=== PATIENT | female | born 1940 | race Caucasian/White ===

== ENCOUNTER 2020-04-24 15:46 | Emergency (ER) | payer MEDICARE, MEDICAID ==
--- NOTE | 2020-04-24 16:54 | EDM.PDOC ---
ED HPI GENERAL MEDICAL PROBLEM - General Chief Complaint: Head Injury Stated Complaint: FALL/HEAD INJURY Time Seen by Provider: 04/24/20 16:15 Source of Information: Reports: Patient, RN Notes Reviewed History Limitations: Reports: No Limitations - History of Present Illness INITIAL COMMENTS - FREE TEXT/NARRATIVE: Patient is a 79-year-old female who presents to the ED for evaluation of her head injury. She notes that she was leaving [employer] earlier today, and she fell as she was going off the curb. She ended up hitting the back of her head on the curb. She has had any loss of consciousness, nor did she blacked out. She is not complaining of pain anywhere else. She is not having any active bleeding from this area. She does not take anticoagulants. She denies any other sick-like symptoms, fever/chills, cough/shortness of breath, nausea/vomiting/diarrhea. Patient is not having any blurred vision or double vision, she is not having any headache. Posterior Head Pain Score (Numeric/FACES): 5 - Related Data Allergies Allergy/AdvReac Type Severity Reaction Status Date / Time adhesive Allergy Rash Verified 04/24/20 15:57 Iodine and Iodide Containing Allergy Itching Verified 04/24/20 15:57 Produc Penicillins Allergy Diarrhea Verified 04/24/20 15:57 Home Meds: Home Meds Levothyroxine [Synthroid] 88 mcg PO DAILY 04/24/20 [History] hydroCHLOROthiazide [Hydrochlorothiazide] 12.5 mg PO DAILY 04/24/20 [History] Past Medical History Cardiovascular History: Reports: Hypertension Musculoskeletal History: Reports: Other (See Below) Other Musculoskeletal History: knee pain Other Endocrine/Metabolic History: thyroid issues - Infectious Disease History Infectious Disease History: Reports: None - Past Surgical History HEENT Surgical History: Reports: Tonsillectomy GI Surgical History: Reports: Appendectomy, Cholecystectomy, Hernia, Abdominal Social & Family History - Tobacco Use Smoking Status *Q: Never Smoker Second Hand Smoke Exposure: No - Caffeine Use Caffeine Use: Reports: Coffee - Recreational Drug Use Recreational Drug Use: No ED ROS GENERAL - Review of Systems Review Of Systems: Comprehensive ROS is negative, except as noted in HPI. ED EXAM, HEAD INJURY - Physical Exam Exam: See Below Exam Limited By: Uncooperative General Appearance: Alert, WD/WN, No Apparent Distress Head: Normocephalic, Scalp Ecchymosis (golf ball size scalp hematoma to crown of head) Nexus Criteria: No: Posterior, Midline Cervical Tenderness, Evidence of Intoxication, Altered Level of Consciousness, Focal Neurological Deficit, Painful Distraction Injuries Eyes: Bilateral Eye: EOMI, Normal Inspection, PERRL Throat/Mouth: Normal Inspection, Normal Lips, Normal Teeth, Normal Gums, Normal Oropharynx, Normal Voice, No Airway Compromise Neck: Non-Tender, Full Range of Motion, Normal Alignment, Normal Inspection Respiratory: No Respiratory Distress, Lungs Clear, Normal Breath Sounds, No Accessory Muscle Use, Chest Non-Tender Cardiovascular: Normal Peripheral Pulses, Regular Rate, Rhythm, No Murmur GI/Abdominal Exam: Normal Bowel Sounds, Soft, Non-Tender, No Distention, No Mass Extremities: Normal Inspection, Normal Capillary Refill Neurologic: No Motor/Sensory Deficits, Normal Mood/Affect Skin: Normal Color, Warm/Dry - Sue Coma Score Best Eye Response (Sue): (4) Open Spontaneously Best Verbal Response (Lorraine): (5) Oriented Best Motor Response (Lorraine): (6) Obeys Commands Course - Vital Signs Last Recorded V/S: Last Vital Signs Temp 97.9 F 04/24/20 15:54 Pulse 100 04/24/20 15:54 Resp 16 04/24/20 15:54 BP 145/93 H 04/24/20 15:54 Pulse Ox 97 04/24/20 15:54 - Orders/Labs/Meds Orders: Active Orders 24 hr Category Date Time Status Head wo Cont [CT] Stat Exams 04/24/20 16:16 Ordered - Re-Assessments/Exams Free Text/Narrative Re-Assessment/Exam: 04/24/20 17:[address] demonstrates no acute intracranial processes. No bleeds, no fractures are appreciated. She will be discharged home with general recommendations. Departure - Departure Time of Disposition: 17:16 Disposition: Home, Self-Care 01 Condition: Good Clinical Impression: Head injury Qualifiers: Encounter type: initial encounter Qualified Code(s): S09.90XA - Unspecified injury of head, initial encounter - Discharge Information *PRESCRIPTION DRUG MONITORING PROGRAM REVIEWED*: No *COPY OF PRESCRIPTION DRUG MONITORING REPORT IN PATIENT ANGUS: No Instructions: Head Injury, Adult, [id number] Referrals: Liu Mars MD [Primary Care Provider] - Forms: ED Department Discharge Additional Instructions: You were evaluated in the ER today for your head injury. A head CT was obtained, and there is no acute fracture or any sign of any bleeds. Please monitor your symptoms at home, if he should have increased headache, any sort of neurological deficits like unilateral weakness, troubles with your speech, or any gait abnormalities, those to be cause for concern to return to the ER for immediate evaluation. You may have a slight headache for the next couple days, you may take Tylenol or ibuprofen as needed for this every 6 hours. Recommend you follow-up with your primary care provider, sometime this week for reevaluation and to make sure everything is getting better as expected. Please return to the ER at any time if symptoms change or worsen. Sepsis Event Note (ED) - Evaluation Sepsis Screening Result: No Definite Risk - Focused Exam Vital Signs: Vital Signs Temp Pulse Resp BP Pulse Ox 04/24/20 15:54 97.9 F 100 16 145/93 H 97 - My Orders Last 24 Hours: My Active Orders 04/24/20 16:16 Head wo Cont [CT] Stat - Assessment/Plan Last 24 Hours: My Active Orders 04/24/20 16:16 Head wo Cont [CT] Stat
--- NOTE | 2020-04-24 17:53 | CT ---
Head CT Technique: Multiple axial sections through the brain were obtained. Intravenous contrast not utilized. Comparison: No prior intracranial imaging is available. Findings: Ventricles along with basal cisterns and sulci over the convexities are within normal limits for the patient's age. Minimal scattered areas of diminished density are noted within the periventricular white matter compatible with small vessel ischemic demyelination change. No other abnormal parenchymal densities are seen. No evidence of intracranial hemorrhage. No midline shift or mass-effect is seen. Minimal hematoma is noted within the posterior scalp. Visualized paranasal sinuses and mastoid sinuses are clear. No acute calvarial finding is seen. Impression: 1. Mild senescent change as noted above. Minimal scalp hematoma. 2. No acute intracranial abnormality is seen. Diagnostic code #2 This report was dictated in MDT I agree with preliminary report from [facility], finalized on 04/24/20, 5:59 PM Central Daylight Time
== END 2020-04-24 17:30 | disposition home or self-care (01) ==
LOC: JD.ED 15:46
DX: S00.03XA Contusion of scalp, initial encounter (principal); I10 Essential (primary) hypertension; Z91.048 Other nonmedicinal substance allergy status; Z88.0 Allergy status to penicillin; Z79.899 Other long term (current) drug therapy; W10.1XXA Fall (on)(from) sidewalk curb, initial encounter
CPT/HCPCS: 70450; 70450-26; 99282; 99283-25

== ENCOUNTER 2020-05-06 00:32 | Emergency (ER) | payer MEDICARE, MEDICAID ==
[2020-05-06] MEDS ORDERED: Acetaminophen/oxyCODONE 325-5 MG Tab PO ONE (01:42)
[2020-05-06] MEDS ORDERED: Ondansetron 4 MG Tab.DIS PO ONE (01:42)
--- NOTE | 2020-05-06 01:42 | EDM.PDOC ---
ED HPI GENERAL MEDICAL PROBLEM - General Chief Complaint: Neck Problem Stated Complaint: NECK AND SHOULDER PAIN Time Seen by Provider: 05/06/20 01:39 Source of Information: Reports: Patient History Limitations: Reports: No Limitations - History of Present Illness INITIAL COMMENTS - FREE TEXT/NARRATIVE: 79-year-old female presents to the ED with complaints of severe left shoulder pain and neck pain. She reports she has had CT of her cervical spine and head recently. Known to have rotator cuff disease in both shoulders. Recently worse on the left side. CT of the neck done on March 26 of this year reveals diffuse degenerative change but no obvious neural foraminal entrapment. She rates pains does start in the back of her lower neck and radiates across her posterior s houlder in the distribution of supraspinatus tendon and into her left upper arm which is a constant ache. Having difficulties sleeping cannot lay on the left side. Pain radiates down to her posterior left elbow over the olecranon. Patient is been taking Tylenol for pain relief with no relief. Onset: Other (Pain has been gradually getting worse over the last month. So bad tonight she cannot sleep.) Duration: Week(s):, Chronic, Getting Worse Location: Reports: Neck (Left neck left shoulder), Upper Extremity, Left Quality: Reports: Ache, Throbbing Severity: Moderate Improves with: Reports: Rest Worsens with: Reports: Movement (Any movement i.e. forward flexion or abduction of the left shoulder makes the pain much worse.) Context: Reports: Other (Spontaneous occurrence). Denies: Activity, Exercise, Lifting, Sick Contact, Trauma Associated Symptoms: Reports: Malaise. Denies: Confusion, Chest Pain, Cough, cough w sputum, Diaphoresis, Fever/Chills, Headaches, Loss of Appetite (Not sleeping that well.), Nausea/Vomiting, Rash, Seizure, Shortness of Breath, Syncope, Weakness Treatments SCAN COORDINATOR: Reports: Acetaminophen Left Neck Pain Score (Numeric/FACES): 8 - Related Data Allergies Allergy/AdvReac Type Severity Reaction Status Date / Time adhesive Allergy Rash Verified 05/06/20 01:27 Iodine and Iodide Containing Allergy Itching Verified 05/06/20 01:27 Produc Penicillins Allergy Diarrhea Verified 05/06/20 01:27 Home Meds: Home Meds Levothyroxine [Synthroid] 88 mcg PO DAILY 04/24/20 [History] hydroCHLOROthiazide [Hydrochlorothiazide] 12.5 mg PO DAILY 04/24/20 [History] Meloxicam 7.5 mg PO DAILY #14 tablet 05/06/20 [Rx] oxyCODONE HCl/Acetaminophen [Percocet 5-325 mg Tablet] 1 each PO Q6H PRN #20 tablet 05/06/20 [Rx] Past Medical History Cardiovascular History: Reports: Hypertension Musculoskeletal History: Reports: Back Pain, Chronic, Other (See Below) Other Musculoskeletal History: knee pain Endocrine/Metabolic History: Reports: Hypothyroidism Other Endocrine/Metabolic History: thyroid issues - Infectious Disease History Infectious Disease History: Reports: None - Past Surgical History HEENT Surgical History: Reports: Tonsillectomy GI Surgical History: Reports: Appendectomy, Cholecystectomy, Hernia, Abdominal Social & Family History - Tobacco Use Smoking Status *Q: Never Smoker Second Hand Smoke Exposure: No - Caffeine Use Caffeine Use: Reports: None - Recreational Drug Use Recreational Drug Use: No - Living Situation & Occupation Living situation: Reports: Occupation: Retired ED ROS GENERAL - Review of Systems Review Of Systems: See Below Constitutional: Reports: Malaise, Fatigue (From not sleeping.). Denies: Fever, Chills HEENT: Reports: Glasses Respiratory: Reports: No Symptoms. Denies: Shortness of Breath, Wheezing, Pleuritic Chest Pain Cardiovascular: Reports: Blood Pressure Problem. Denies: Claudication (On hydrochlorothiazide daily.), Dyspnea on Exertion, Edema, Lightheadedness, Orthopnea Endocrine: Reports: Fatigue GI/Abdominal: Reports: Decreased Appetite Musculoskeletal: Reports: Neck Pain, Shoulder Pain, Arm Pain (Left shoulder pain). Denies: Back Pain ( arm pain referred from the shoulder in the distribution of the posterior arm to the elbow over the olecranon process.), Hand Pain, Leg Pain, Foot Pain Skin: Reports: No Symptoms Neurological: Reports: Weakness. Denies: Numbness, Paresthesia, Pre-Existing Deficit, Seizure, Syncope, Tingling, Trouble Speaking, Difficulty Walking (Left shoulder) Psychiatric: Reports: No Symptoms Hematologic/Lymphatic: Reports: No Symptoms Immunologic: Reports: No Symptoms ED EXAM, UPPER BACK/NECK PAIN - Physical Exam Exam: See Below Exam Limited By: No Limitations General Appearance: Alert, WD/WN, No Apparent Distress, Other (Temperature is 36.6. Heart rate 100 and sinus respiratory rate is 20 with O2 sats of 97% room air BP 1 3676.) Eye Exam: Bilateral Eye: Normal Inspection, PERRL Throat/Mouth Exam: Normal Inspection, Normal Lips, Normal Oropharynx Head Exam: Atraumatic, Normocephalic Neck Exam: Normal Alignment, Normal Inspection, Limited Range of Motion, Paraspinous Muscle Tender, Tender Lateral (Left side of the neck.), Other ( Side of the neck. Axial traction on the top of her head does cause some radiculopathy into the left upper shoulder in the distribution of the supraspinatus tendon.). No: Full Range of Motion, Abnormal Alignment, Muscle Spasm Nexus Criteria: Posterior, Midline Cervical Tenderness. No: Evidence of Intoxication, Altered Level of Consciousness, Focal Neurological Deficit, Painful Distraction Injuries Cardiovascular/Respiratory: Regular Rate, Rhythm, Normal Peripheral Pulses, No JVD, Normal Breath Sounds GI/Abdominal: Normal Bowel Sounds, Soft, Non-Tender, No Organomegaly, Pelvis Stable Back Exam: Normal Inspection, Full Range of Motion. No: CVA Tenderness (L), CVA Tenderness (R) Extremities: Other (Very limited ability to abduct the left shoulder more than 60 degrees. Pain in the lateral posterior shoulder. Painful forward flexion with inability to get to 90 degrees. She can get to about 70 degrees. Good pulses to the wrist. Reflexes a brachiocephalic and biceps are intact. There is no evidence of muscle wasting in the left upper extremity. Mild pain over the coracoid process. Mild pain over the long head of the biceps tendon insertion site. With the elbow at 45 degrees away from the body she could barely tolerate supraspinatus stress test.) DTR: 2+: Bicep (R), Bicep (L) Psychiatric: Normal Affect, Normal Mood Skin Exam: Normal Color, Warm/Dry Course - Vital Signs Last Recorded V/S: Last Vital Signs Temp 36.6 C 05/06/20 01:22 Pulse 100 05/06/20 01:22 Resp 20 05/06/20 01:22 BP 136/76 05/06/20 01:22 Pulse Ox 97 05/06/20 01:22 - Orders/Labs/Meds Meds: Medications Discontinued Medications Generic Name Dose Route Start Last Admin Trade Name [place] PRN Reason Stop Dose Admin Ondansetron HCl 4 mg 05/06/20 01:42 05/06/20 01:54 Zofran Odt PO 05/06/20 01:43 4 mg ONETIME ONE Administration Oxycodone/Acetaminophen 1 tab 05/06/20 01:42 05/06/20 01:54 Percocet 325-5 Mg PO 05/06/20 01:43 1 tab ONETIME ONE Administration - Radiology Interpretation Free Text/Narrative:: 79-year-old female presents to the ED in the wee hours of the morning due to pain left shoulder and neck. Unable to sleep due to the pain. Gradually getting worse over period of 6 weeks or more. She has had CT scan of her cervical spine which I did review in the ED and it reveals a degenerative changes at multiple levels in the cervical spine but no neuroforaminal and control treatment. Therefore most of her pain appears to be coming from rotator cuff disease in the left shoulder primarily supraspinatus bursitis. There is a component of biceps tendinitis as well. I am going to suggest he follow-up with Dr. Potter at the clinic to have potential left shoulder injection with steroid. - Re-Assessments/Exams Free Text/Narrative Re-Assessment/Exam: 05/06/20 02:16 I have looked at her CT scan of her cervical spine that was done on March 26. It reveals degenerative disc disease at 3 at C3-C4 level and C5- C6 level but there is no evidence of any neural foraminal stenosis. There is mild degenerative arthritic change at the atlantoaxial joint as well. Therefore most of her pain appears to be coming from the left shoulder due to rotator cu ff disease. I am going to have her follow-up with Dr. Potter over at [facility] to see about injecting her left shoulder with steroids to try and reduce the inflammation due to her age of 79 she is not a good surgical candidate. I would suggest injecting the shoulder prior to further imaging with MRI. Going to send her home with Percocet tabs 5 325 mg to be used 1 every 6 hours as needed for pain relief. Also going to trial her on a dose of meloxicam 7.5 mg once daily for 2 weeks and she will follow-up with her provider as to whether or not this provided any relief of pain in her neck due to arthritic change. We will give her Zofran 4 mg sublingual and 1 Percocet 5 325 mg tablet now for pain relief. 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 Instructions: Radicular Pain Referrals: Liu Mars MD [Primary Care Provider] - Forms: ED Department Discharge Additional Instructions: Evaluation in the emergency room tonight in regards to significant left shoulder pain that is not allowing you to sleep. Associated pain throughout the neck is appreciated on examination with some degree of shooting pain into the left shoulder on axial compression of the head. This suggest there is some nerve root inflammation in the neck that is contributing to left shoulder pain. However pain rating down the arm to the elbow appears to be primarily coming from rotator cuff disease in the left shoulder. I did review CT scan of your neck done March 26 which revealed degenerative arthritic change at multiple levels but no sign of nerve root compression. Therefore most of the pain in the left arm is coming from the left shoulder. Suggest arranging a follow-up appoint with Dr. Potter orthopedic surgeon at [facility] to arrange for steroid injection into your left shoulder to alleviate some of the pain and inflammation. In the ED you did receive a pain pill Percocet 5/325 mg with Zofran 4 mg and you tolerated this well. This will take a good hour to start to work and relieve pain. I have written a prescription for the same medication to be taken 1 tablet every 6 hours as needed for severe pain primarily at bedtime to help with sleep. Also suggested starting a anti-inflammatory medication called meloxicam 7.5 mg once daily every morning with your breakfast meal. This is a trial medication for 2 weeks to see if it alleviates some of the inflammation in your neck and left shoulder. Suggest follow-up with your personal care provider in 2 weeks time for review of pain neck and left shoulder. Of note pain pills like to slow the bowel down and cause constipation. If this is an issue for you suggest purchasing a MiraLAX powder which is [id number] and taking 1 scoop or 17 g once daily to prevent constipation from occurring. Sepsis Event Note (ED) - Evaluation Sepsis Screening Result: No Definite Risk
== END 2020-05-06 02:52 | disposition home or self-care (01) ==
LOC: JD.ED 00:32
DX: M47.812 Spondylosis without myelopathy or radiculopathy, cervical region (principal); M12.812 Other specific arthropathies, not elsewhere classified, left shoulder; I10 Essential (primary) hypertension; E03.9 Hypothyroidism, unspecified; Z79.899 Other long term (current) drug therapy; Z88.0 Allergy status to penicillin; Z91.048 Other nonmedicinal substance allergy status
CPT/HCPCS: 99283; A9270

== ENCOUNTER 2020-07-27 19:17 | Inpatient (IN) | payer MEDICARE, MEDICAID ==
--- NOTE | 2020-07-27 19:57 | EDM.PDOC ---
ED HPI GENERAL MEDICAL PROBLEM - General Chief Complaint: Respiratory Problem Stated Complaint: SOB, FATIGUED Time Seen by Provider: 07/27/20 19:27 Source of Information: Reports: Patient History Limitations: Reports: No Limitations - History of Present Illness INITIAL COMMENTS - FREE TEXT/NARRATIVE: Mrs. Shabazz is a very pleasant 80-year-old woman who now presents to the ED sta ting that she developed generalized body aches 2 days ago,, 07/25/2020, then developed dyspnea coughing, yesterday. She is that her cough is generally nonproductive, occasionally productive of whitish sputum. She has not had a fever. She has not taken any [id number] or home remedies to address her symptoms. The patient states that her is currently hospitalized at this facility, with COVID-19. He was apparently admitted on 07/23/2020. The patient states that she has not been tested for COVID-19. Here in the ED, the patient's initial BP is found to be elevated at 160/73, with mild tachypnea of 28 rpm, afebrile, saturating 81% on room air, up to 96% on 2 L of oxygen per nasal cannula. Prior to 2 days ago, the patient denies having a recent fever, chills, sore throat, ear pain, nasal or sinus congestion, cough, dyspnea, chest pain, palpitations, nausea, vomiting, constipation, diarrhea, abdominal pain, urinary symptoms, recent weight gain or weight loss, recent bloody bowel movements or black bowel movements, recent joint aches, headaches, or rashes. The patient's PCP is Dr. Liu Mars. She already received an influenza vaccine this season. - Related Data Allergies Allergy/AdvReac Type Severity Reaction Status Date / Time adhesive Allergy Rash Verified 07/27/20 19:35 Iodine and Iodide Containing Allergy Itching Verified 07/27/20 19:35 Produc Penicillins Allergy Diarrhea Verified 07/27/20 19:35 Home Meds: Home Meds Levothyroxine [Synthroid] 88 mcg PO DAILY 04/24/20 [History] hydroCHLOROthiazide [Hydrochlorothiazide] 12.5 mg PO DAILY 04/24/20 [History] Past Medical History Cardiovascular History: Reports: Hypertension Genitourinary History: Reports: Urinary Incontinence (stress incontinence) Musculoskeletal History: Reports: Osteoarthritis Endocrine/Metabolic History: Reports: Hypothyroidism, Obesity/BMI 30+ - Past Surgical History HEENT Surgical History: Reports: Cataract Surgery (bilateral), Tonsillectomy GI Surgical History: Reports: Appendectomy, Cholecystectomy (1965), Hernia, Abdominal (periumbilical) Social & Family History - Tobacco Use Tobacco Use Status *Q: Never Tobacco User - Caffeine Use Caffeine Use: Reports: Tea - Alcohol Use Alcohol Use History: No - Recreational Drug Use Recreational Drug Use: No - Living Situation & Occupation Living situation: Reports: , with Spouse Occupation: Retired ED ROS GENERAL - Review of Systems Review Of Systems: Comprehensive ROS is negative, except as noted in HPI. ED EXAM, GENERAL - Physical Exam Exam: See Below Exam Limited By: No Limitations General Appearance: Alert, WD/WN, No Apparent Distress Eye Exam: Bilateral Eye: EOMI, Normal Inspection Ears: Normal External Exam, Hearing Grossly Normal Nose: Normal Inspection Throat/Mouth: Normal Inspection, Normal Lips, Normal Voice, No Airway Compromise Head: Atraumatic, Normocephalic Neck: Normal Inspection, Full Range of Motion Respiratory/Chest: No Respiratory Distress (some conversational dyspnea), Lungs Clear, Normal Breath Sounds, No Accessory Muscle Use. No: Decreased Breath Sounds, Crackles, Rhonchi, Wheezing, Stridor, Prolonged Expiration Cardiovascular: Normal Peripheral Pulses, Regular Rate, Rhythm, No Gallop, No JVD, No Murmur, No Rub Peripheral Pulses: 3+: Radial (L), Radial (R) GI/Abdominal: Normal Bowel Sounds, Soft, Non-Tender, No Organomegaly, No Distention, No Abnormal Bruit, No Mass Back Exam: Normal Inspection, Full Range of Motion, NT Extremities: Normal Inspection, Normal Range of Motion, No Pedal Edema, Normal Capillary Refill Neurological: Alert, Oriented, Normal Cognition, No Motor/Sensory Deficits Psychiatric: Normal Affect Skin Exam: Warm, Dry, Intact, Normal Color, No Rash #1 Interpretation EKG Date: 07/27/20 Time: 19:38 Rhythm: NSR Rate (Beats/Min): 89 [place]: Normal P-Wave: Present QRS: Normal ST-T: Normal QT: Normal Comparison: NA - No Prior EKG Course - Vital Signs Last Recorded V/S: Last Vital Signs Temp 37.4 C 07/27/20 19:28 Pulse 91 07/27/20 19:45 Resp 26 H 07/27/20 19:45 BP 154/77 H 07/27/20 19:45 Pulse Ox 90 L 07/27/20 20:07 - Orders/Labs/Meds Orders: Active Orders 24 hr Category Date Time Status EKG Documentation Completion [RC] STAT Care 07/27/20 19:49 Active Ang Chest [CT] Stat Exams 07/27/20 20:35 Taken Chest 2V [CR] Stat Exams 07/27/20 19:49 Taken CULTURE BLOOD [BC] Stat Lab 07/27/20 20:39 Received CULTURE BLOOD [BC] Stat Lab 07/27/20 20:49 Received Sodium Chloride 0.9% [Normal Saline] 1,000 ml Med 07/27/20 20:45 Active IV ASDIRECTED Sodium Chloride 0.9% [Normal Saline] 100 ml Med 07/27/20 21:00 Active IV ASDIRECTED Sodium Chloride 0.9% [Saline Flush] Med 07/27/20 21:00 Active 10 ml FLUSH ONARRIVE dexAMETHasone [Decadron] Med 07/27/20 22:02 Stat 6 mg IVPUSH ONETIME STA Blood Culture x2 Reflex Set [OM.PC] Stat Oth 07/27/20 19:49 Ordered Isolation [COMM] Routine Oth 07/27/20 19:52 Ordered Medication Orders Sodium Chloride (Normal Saline) 1,000 mls @ 100 mls/hr IV ASDIRECTED NAILA Last Admin: 07/27/20 20:50 Dose: 100 mls/hr Documented by: [email or web address] Sodium Chloride (Normal Saline) 100 mls @ 60 mls/min IV ASDIRECTED NAILA Last Admin: 07/27/20 21:43 Dose: 60 mls/min Documented by: YOKASTA Sodium Chloride (Saline Flush) 10 ml FLUSH ONARRIVE NAILA Last Admin: 07/27/20 21:43 Dose: 10 ml Documented by: YOKASTA Labs: Laboratory Tests 07/27/20 07/27/20 07/27/20 Range/Units 19:30 19:30 19:30 WBC 9.32 (3.98-10.04) K/mm3 RBC 4.74 (3.98-5.22) M/mm3 Hgb 14.0 (11.2-15.7) gm/dl Hct 42.3 (34.1-44.9) % MCV 89.2 (79.4-94.8) fl MCH 29.5 (25.6-32.2) pg MCHC 33.1 (32.2-35.5) g/dl RDW Std Deviation 43.8 (36.4-46.3) fL Plt Count 242 (182-369) K/mm3 MPV 10.6 (9.4-12.3) fl Neutrophils % (Manual) 82 H (40-60) % Band Neutrophils % 2 (0-10) % Lymphocytes % (Manual) 8 L (20-40) % Atypical Lymphs % 0 % Monocytes % (Manual) 8 (2-10) % Eosinophils % (Manual) 0 L (0.7-5.8) % Basophils % (Manual) 0 L (0.1-1.2) Platelet Estimate Adequate RBC Morph Comment Normal D-Dimer, Quantitative 2.59 H (0.19-0.50) mg/L Puncture Site ABG pH (7.35-7.45) ABG pCO2 (35.0-45.0) mmHg ABG pO2 (80.0-100.0) mmHg ABG HCO3 (22.0-26.0) meq/L ABG O2 Saturation (96.0-97.0) % ABG Base Excess (-2-2.0) Wing Test A-a Gradient mmHg O2 Delivery Device Oxygen Flow Rate FiO2 (21.00-100.00) % Sodium 133 L (136-145) mEq/L Potassium 3.3 L (3.5-5.1) mEq/L Chloride 97 L (98-107) mEq/L Carbon Dioxide 25 (21-32) mEq/L Anion Gap 14.3 (5-15) BUN 13 (7-18) mg/dL Creatinine 0.9 (0.55-1.02) mg/dL Est Cr Clr Drug Dosing 43.77 mL/min Estimated GFR (MDRD) > 60 (>60) mL/min BUN/Creatinine Ratio 14.4 (14-18) Glucose 88 (83-115) mg/dL Lactic Acid (0.4-2.0) mmol/L Calcium 8.7 (8.5-10.1) mg/dL Magnesium (1.8-2.4) mg/dl Total Bilirubin 0.7 (0.2-1.0) mg/dL AST 128 H (15-37) U/L ALT 87 H (14-59) U/L Alkaline Phosphatase 60 (46-116) U/L Troponin I 0.025 (0.00-0.056) ng/mL NT-Pro-B Natriuret Pep (0-450) pg/mL Total Protein 7.5 (6.4-8.2) g/dl Albumin 3.1 L (3.4-5.0) g/dl Globulin 4.4 gm/dL Albumin/Globulin Ratio 0.7 L (1-2) Influenza Type A RNA (NEGATIVE) Influenza Type B RNA (NEGATIVE) SARS-CoV-2 RNA (HUMAIRA) (NEGATIVE) 07/27/20 07/27/20 07/27/20 Range/Units 19:30 19:30 19:30 WBC (3.98-10.04) K/mm3 RBC (3.98-5.22) M/mm3 Hgb (11.2-15.7) gm/dl Hct (34.1-44.9) % MCV (79.4-94.8) fl MCH (25.6-32.2) pg MCHC (32.2-35.5) g/dl RDW Std Deviation (36.4-46.3) fL Plt Count (182-369) K/mm3 MPV (9.4-12.3) fl Neutrophils % (Manual) (40-60) % Band Neutrophils % (0-10) % Lymphocytes % (Manual) (20-40) % Atypical Lymphs % % Monocytes % (Manual) (2-10) % Eosinophils % (Manual) (0.7-5.8) % Basophils % (Manual) (0.1-1.2) Platelet Estimate RBC Morph Comment D-Dimer, Quantitative (0.19-0.50) mg/L Puncture Site ABG pH (7.35-7.45) ABG pCO2 (35.0-45.0) mmHg ABG pO2 (80.0-100.0) mmHg ABG HCO3 (22.0-26.0) meq/L ABG O2 Saturation (96.0-97.0) % ABG Base Excess (-2-2.0) Wing Test A-a Gradient mmHg O2 Delivery Device Oxygen Flow Rate FiO2 (21.00-100.00) % Sodium (136-145) mEq/L Potassium (3.5-5.1) mEq/L Chloride (98-107) mEq/L Carbon Dioxide (21-32) mEq/L Anion Gap (5-15) BUN (7-18) mg/dL Creatinine (0.55-1.02) mg/dL Est Cr Clr Drug Dosing mL/min Estimated GFR (MDRD) (>60) mL/min BUN/Creatinine Ratio (14-18) Glucose (83-115) mg/dL Lactic Acid 2.0 (0.4-2.0) mmol/L Calcium (8.5-10.1) mg/dL Magnesium 2.0 (1.8-2.4) mg/dl Total Bilirubin (0.2-1.0) mg/dL AST (15-37) U/L ALT (14-59) U/L Alkaline Phosphatase (46-116) U/L Troponin I (0.00-0.056) ng/mL NT-Pro-B Natriuret Pep 376 (0-450) pg/mL Total Protein (6.4-8.2) g/dl Albumin (3.4-5.0) g/dl Globulin gm/dL Albumin/Globulin Ratio (1-2) Influenza Type A RNA (NEGATIVE) Influenza Type B RNA (NEGATIVE) SARS-CoV-2 RNA (HUMAIRA) (NEGATIVE) 07/27/20 07/27/20 Range/Units 19:40 20:09 WBC (3.98-10.04) K/mm3 RBC (3.98-5.22) M/mm3 Hgb (11.2-15.7) gm/dl Hct (34.1-44.9) % MCV (79.4-94.8) fl MCH (25.6-32.2) pg MCHC (32.2-35.5) g/dl RDW Std Deviation (36.4-46.3) fL Plt Count (182-369) K/mm3 MPV (9.4-12.3) fl Neutrophils % (Manual) (40-60) % Band Neutrophils % (0-10) % Lymphocytes % (Manual) (20-40) % Atypical Lymphs % % Monocytes % (Manual) (2-10) % Eosinophils % (Manual) (0.7-5.8) % Basophils % (Manual) (0.1-1.2) Platelet Estimate RBC Morph Comment D-Dimer, Quantitative (0.19-0.50) mg/L Puncture Site Lt radial ABG pH 7.42 (7.35-7.45) ABG pCO2 37.6 (35.0-45.0) mmHg ABG pO2 55.0 L (80.0-100.0) mmHg ABG HCO3 23.9 (22.0-26.0) meq/L ABG O2 Saturation 88.4 L (96.0-97.0) % ABG Base Excess 0.1 (-2-2.0) Wing Test Positive A-a Gradient 48 mmHg O2 Delivery Device Room air Oxygen Flow Rate 0.0 FiO2 21.00 (21.00-100.00) % Sodium (136-145) mEq/L Potassium (3.5-5.1) mEq/L Chloride (98-107) mEq/L Carbon Dioxide (21-32) mEq/L Anion Gap (5-15) BUN (7-18) mg/dL Creatinine (0.55-1.02) mg/dL Est Cr Clr Drug Dosing mL/min Estimated GFR (MDRD) (>60) mL/min BUN/Creatinine Ratio (14-18) Glucose (83-115) mg/dL Lactic Acid (0.4-2.0) mmol/L Calcium (8.5-10.1) mg/dL Magnesium (1.8-2.4) mg/dl Total Bilirubin (0.2-1.0) mg/dL AST (15-37) U/L ALT (14-59) U/L Alkaline Phosphatase (46-116) U/L Troponin I (0.00-0.056) ng/mL NT-Pro-B Natriuret Pep (0-450) pg/mL Total Protein (6.4-8.2) g/dl Albumin (3.4-5.0) g/dl Globulin gm/dL Albumin/Globulin Ratio (1-2) Influenza Type A RNA Negative (NEGATIVE) Influenza Type B RNA Negative (NEGATIVE) SARS-CoV-2 RNA (HUMAIRA) Positive H (NEGATIVE) Meds: Medications Generic Name Dose Route Start Last Admin Trade Name Freq PRN Reason Stop Dose Admin Sodium Chloride 1,000 mls @ 100 mls/hr 07/27/20 20:45 07/27/20 20:50 Normal Saline IV 100 mls/hr ASDIRECTED NAILA Administration Sodium Chloride 100 mls @ 60 mls/min 07/27/20 21:00 07/27/20 21:43 Normal Saline IV 60 mls/min ASDIRECTED NAILA Administration Sodium Chloride 10 ml 07/27/20 21:00 07/27/20 21:43 Saline Flush FLUSH 10 ml ONARRIVE NAILA Administration Discontinued Medications Generic Name Dose Route Start Last Admin Trade Name [place] PRN Reason Stop Dose Admin Iopamidol 100 ml 07/27/20 20:53 07/27/20 21:43 Isovue-370 (76%) IVPUSH 07/27/20 20:54 100 ml ONETIME ONE Administration - Re-Assessments/Exams Free Text/Narrative Re-Assessment/Exam: 07/27/20 19:52 As above, the patient has had 2 days of body aches, with dyspnea while coughing since yesterday. No recent fever or other symptoms. Here in the ED, she is hypoxemic, with an SpO2 of 81% on room air, 96% on 2 L of oxygen per nasal cannula. She tells me that her is currently in the ICU with COVID-19. It is highly likely that the patient has COVID-19, as well. I have ordered a work-up that includes several blood tests, 2 sets of blood cultures, an ABG, a swab for the SARS-CoV-2 virus, an influenza swab, a chest x-ray, and an ECG. 07/27/20 20:36 Two-view chest radiograph reviewed. Poor inspiratory effort. The cardiac silhouette is within normal limits. No pulmonary vascular congestion. No pleural effusions, although the horizontal fissure is visible. There are bilateral hazy infiltrates, worse on the right than the left. No pneumothorax. Formal read per the Radiologist pending. The patient's CBC is unremarkable. Her CMP is remarkable for mild hyponatremia of 133, mild hypokalemia 3.3, and mildly elevated AST/ALT of 128/87, respectively. The remainder of her CMP is unremarkable. Her lactic acid level is within normal limits at 2.0. Her troponin is within normal limits at 0.025. Her D-dimer is elevated at 2.59. Her ABG represents an appropriately compensated respiratory alkalosis. Her magnesium level, pro-BNP, results of her swab for the SARS-CoV-2 virus and influenza, and chest x-ray are still pending. Based on the above, I have ordered a CT angiogram of the chest, along with judicious IV fluid. 07/27/20 20:56 The patient's magnesium level is within normal limits at 2.0. Her pro-BNP is within normal limits at 376. Her influenza swab returned negative. Her swab for the SARS-CoV-2 virus returned positive. 07/27/20 21:55 CT angiogram of the chest is read by [facility] as: 1. Limited pulmonary arterial visualization as described. 2. There is no CT evidence of central pulmonary embolism. Peripheral emboli cannot be ruled in or ruled out. 3. Consider pulmonary arterial hypertension. 4. Diffuse pulmonary parenchymal abnormality as described suspect for pneumonia. Consider viral etiologies, bacterial etiologies, and atypical etiologies. 5. Bilateral renal calculi as described. 07/27/20 22:03 Since the patient is hypoxemic, she may qualify for admission to the hospital. Case discussed with Dr. Leblanc at 22:00. He accepted the patient for admission to the hospital. We will treat with 6 mg IV dexamethasone at this time, however, Dr. Leblanc will decide if the patient is to receive remdesivir and/or convalescent plasma. Departure - Departure Time of Disposition: 22:04 Disposition: Admitted As Inpatient 67 Clinical Impression: COVID-19 - Discharge Information *PRESCRIPTION DRUG MONITORING PROGRAM REVIEWED*: Not Applicable *COPY OF PRESCRIPTION DRUG MONITORING REPORT IN PATIENT ANGUS: Not Applicable Referrals: Liu Mars MD [Primary Care Provider] - Forms: ED Department Discharge Sepsis Event Note (ED) - Evaluation Sepsis Screening Result: No Definite Risk - Focused Exam Vital Signs: Vital Signs Temp Pulse Resp BP Pulse Ox 07/27/20 20:07 90 L 07/27/20 19:45 91 26 H 154/77 H 95 07/27/20 19:28 37.4 C 88 28 H 160/73 H 81 L - My Orders Last 24 Hours: My Active Orders 07/27/20 19:49 EKG Documentation Completion [RC] STAT Chest 2V [CR] Stat Blood Culture x2 Reflex Set [OM.PC] Stat 07/27/20 19:52 Isolation [COMM] Routine 12/16/20 20:35 Ang Chest [CT] Stat 07/27/20 20:39 CULTURE BLOOD [BC] Stat 07/27/20 20:45 Sodium Chloride 0.9% [Normal Saline] 1,000 ml IV ASDIRECTED 07/27/20 20:49 CULTURE BLOOD [BC] Stat 07/27/20 21:00 Sodium Chloride 0.9% [Normal Saline] 100 ml IV ASDIRECTED Sodium Chloride 0.9% [Saline Flush] 10 ml FLUSH ONARRIVE 07/27/20 22:02 dexAMETHasone [Decadron] 6 mg IVPUSH ONETIME STA - Assessment/Plan Last 24 Hours: My Active Orders 07/27/20 19:49 EKG Documentation Completion [RC] STAT Chest 2V [CR] Stat Blood Culture x2 Reflex Set [OM.PC] Stat 07/27/20 19:52 Isolation [COMM] Routine 07/27/20 20:35 Ang Chest [CT] Stat 07/27/20 20:39 CULTURE BLOOD [BC] Stat 07/27/20 20:45 Sodium Chloride 0.9% [Normal Saline] 1,000 ml IV ASDIRECTED 07/27/20 20:49 CULTURE BLOOD [BC] Stat 07/27/20 21:00 Sodium Chloride 0.9% [Normal Saline] 100 ml IV ASDIRECTED Sodium Chloride 0.9% [Saline Flush] 10 ml FLUSH ONARRIVE 07/27/20 22:02 dexAMETHasone [Decadron] 6 mg IVPUSH ONETIME STA
[2020-07-27] MEDS ORDERED: Sodium Chloride 0.9% 1,000 ML IV SCH (20:45)
[2020-07-27 20:47] LABS: CORONAVIRUS COVID-19 NAA POSITIVE (NEGATIVE)
[2020-07-27] MEDS ORDERED: Iopamidol 755 Mg/ML 100 ML Bottle IVPUSH ONE (20:53)
[2020-07-27] MEDS ORDERED: Sodium Chloride 0.9% 100 ML IV SCH (21:00)
[2020-07-27] MEDS ORDERED: Sodium Chloride 0.9% 10 ML Syringe FLUSH SCH (21:00)
[2020-07-27] MEDS ORDERED: Dexamethasone 4 MG/ML SDV IVPUSH STA (22:02)
[2020-07-27] MEDS ORDERED: Albuterol 0.083% 2.5 MG/3 ML Neb Soln NEB PRN (22:41)
[2020-07-27] MEDS ORDERED: Ondansetron 4 MG/2 ML SDV IV PRN (22:41)
[2020-07-27] MEDS ORDERED: Albuterol/Ipratropium 3.0-0.5 MG/3 ML Neb Soln NEB PRN (22:41)
[2020-07-27] MEDS ORDERED: REMDESIVIR 200 MG in Sodium Chloride 0.9% 250 ML IV ONE (22:44)
[2020-07-27] MEDS ORDERED: Potassium Chloride 20 MEQ Tab.ER PO ONE (22:46)
[2020-07-27] MEDS ORDERED: Benzonatate 100 MG Cap PO PRN (22:47)
--- NOTE | 2020-07-28 07:31 | PCM.HP.2 ---
H&P History of Present Illness - General Date of Service: 07/28/20 Admit Problem/Dx: Admission Diagnosis/Problem Admission Diagnosis/Problem Hypoxemia Source of Information: Patient, Old Records, Provider, RN, RN Notes Reviewed History Limitations: Reports: No Limitations - History of Present Illness Initial Comments - Free Text/Narative: This is a 80 yo female who presented to ED on the evening of 07/27/2020 with shortness of breath and fatigue. She states she developed body aches on 07/25/2020 and has since had worsening dyspnea and coughing. Denies any fever at home treatment. Her tested positive for Covid and was admitted on 07/23/2020 to our hospital. Patient denies any chest pain, palpitations, nausea, vomiting, constipation, diarrhea, abdominal pain, urinary symptoms, headaches, or rashes. In the ED he is 160/73. She is noted to have tachypnea at 28 bpm with saturations of 81% on room air. She is afebrile. She is placed on 2 L of oxygen via nasal cannula and her saturations improved to 96%. EKG is obtained showing a sinus rhythm at 89 bpm with no ischemic changes. Labs are obtained: BBC is normal at 9.32. Hemoglobin 14.0. Hematocrit 42.3. She is normocytic. Platelets are 242,000. Neutrophils are elevated at 82%. There is 2% band neutrophils noted. D-dimer is quite high at 2.59. Sodium is low at 133. Potassium 3.3. Chloride 97. Carbon dioxide 25. Anion gap 14.3. BUN is 13. Creatinine 0.9. GFR is greater than 60. Glucose is 88. Calcium is 8.7. Total bilirubin 0.7. AST is high at 128. ALT high at 87. Alkaline phosphatase at 60. Troponin is 0.025. Protein is 7.5. Albumin 3.1. Lactic acid is 2.0. Magnesium is 2.0. proBNP is 376. ABG is obtained in the left radial showing a pH of 7.42. PCO2 of 37.6. PO2 of 55. HCO3 is 23.9. O2 saturation is 88.4. Base excess is 0.1. A-a radiant is 48. This is obtained while on room air. Influenza a and B are both negative. She is positive for the SARS-CoV-2 RNA. Blood cultures were obtained and are pending. Chest x-ray is changed showing bilateral hazy infiltrates worse on the right than on the left, but no pleural effusion or pulmonary vascular congestion are noted. There is no pneumothorax. Formal read is still pending. CT angiogram of the chest is obtained and interpreted by [facility] as: 1. Limited pulmonary artery visualization as described. 2. There is no CT evidence of central pulmonary embolism. Peripheral emboli cannot be ruled in or ruled out. 3. Consider pulmonary atrial hypertension. 4. Diffuse pulmonary parenchymal abnormality as described suspect for pneumonia. Consider viral etiologies, bacterial etiologies, and atypical etiologies. Bilateral renal calculi as described. Patient is given 6 mg IV dexamethasone. She carries a history of hypothyroidism, obesity, osteoarthritis, hypertension, and urinary incontinence. She has never used tobacco. She is a full code. Her PCP is Dr. Mars. She subsequently admitted to the medical floor on telemetry for treatment of her COVID-19 virus, hypokalemia, and hypoxia. - Related Data Allergies/Adverse Reactions: Allergies Allergy/AdvReac Type Severity Reaction Status Date / Time adhesive Allergy Rash Verified 07/27/20 19:35 Iodine and Iodide Containing Allergy Itching Verified 07/27/20 19:35 Produc Penicillins Allergy Diarrhea Verified 07/27/20 19:35 Home Medications: Home Meds Levothyroxine [Synthroid] 88 mcg PO DAILY 04/24/20 [History] hydroCHLOROthiazide [Hydrochlorothiazide] 12.5 mg PO DAILY 04/24/20 [History] Benzonatate 100 mg PO ASDIRECTED 07/28/20 [History] Fluticasone Propionate [Flonase] 16 gm NS BID 07/28/20 [History] Past Medical History Cardiovascular History: Reports: Hypertension Genitourinary History: Reports: Urinary Incontinence 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: Musculoskeletal History: Reports: Osteoarthritis Other Musculoskeletal History: knee pain, rotator cuff but not surgery Endocrine/Metabolic History: Reports: Hypothyroidism, Obesity/BMI 30+ Other Endocrine/Metabolic History: thyroid issues - Infectious Disease History Infectious Disease History: Reports: None - Past Surgical History HEENT Surgical History: Reports: Cataract Surgery, Tonsillectomy GI Surgical History: Reports: Appendectomy, Cholecystectomy, Hernia, Abdominal Social & Family History - Tobacco Use Tobacco Use Status *Q: Never Tobacco User - Caffeine Use Caffeine Use: Reports: Tea - Recreational Drug Use Recreational Drug Use: No - Living Situation & Occupation Living situation: Reports: , with Spouse Occupation: Retired H&P Review of Systems - Review of Systems: Review Of Systems: See Below General: Reports: Malaise, Weakness, Fatigue, Decreased Appetite. Denies: Fever, Chills HEENT: Reports: No Symptoms. Denies: Headaches, Rhinitis, Sinus Congestion, Sore Throat Pulmonary: Reports: Shortness of Breath, Cough, Sputum. Denies: Wheezing, Pleuritic Chest Pain Cardiovascular: Reports: Dyspnea on Exertion. Denies: Chest Pain, Palpitations, Edema, Lightheadedness Gastrointestinal: Reports: No Symptoms. Denies: Abdominal Pain, Constipation, Diarrhea, Nausea, Vomiting Genitourinary: Reports: No Symptoms. Denies: Pain Musculoskeletal: Reports: No Symptoms Skin: Reports: No Symptoms. Denies: Cyanosis Psychiatric: Reports: No Symptoms. Denies: Confusion Neurological: Reports: No Symptoms. Denies: Dizziness, Headache, Numbness, Pre- Existing Deficit, Seizure, Syncope, Tingling, Difficulty Walking, Gait Disturbance Hematologic/Lymphatic: Reports: No Symptoms Immunologic: Reports: No Symptoms Exam - Exam Exam: See Below - Vital Signs Vital Signs: Last Vital Signs Temp 97.5 F 07/28/20 03:24 Pulse 67 07/28/20 03:24 Resp 20 07/28/20 03:24 BP 117/62 07/28/20 03:24 Pulse Ox 96 07/28/20 06:11 Weight: 200 lb - Exam Quality Assessment: Supplemental Oxygen, DVT Prophylaxis. No: Urinary Catheter General: Alert, Oriented, Cooperative. No: Mild Distress HEENT: Conjunctiva Clear, EACs Clear, EOMI, Hearing Intact, Mucosa Moist & Velva, Nares Patent, Posterior Pharynx Clear, PERRLA Neck: Supple, Trachea Midline Lungs: Clear to Auscultation, Normal Respiratory Effort. No: Crackles, Rhonchi, Wheezing Cardiovascular: Regular Rate, Regular Rhythm GI/Abdominal Exam: Normal Bowel Sounds, Soft, Non-Tender, No Distention (Female) Exam: Deferred Rectal (Female) Exam: Deferred Back Exam: Normal Inspection, Full Range of Motion Extremities: Normal Inspection, Normal Range of Motion, Non-Tender, No Pedal Edema, Normal Capillary Refill Peripheral Pulses: 2+: Dorsalis Pedis (L), Dorsalis Pedis (R), 3+: Radial (L), Radial (R) Skin: Warm, Dry, Intact Neurological: Cranial Nerves Intact (Grossly ) Neuro Extensive - Mental Status: Alert, Oriented x3, Normal Mood/Affect - Patient Data Lab Results Last 24 hrs: Laboratory Results - last 24 hr 07/27/20 07/27/20 07/27/20 Range/Units 19:30 19:30 19:30 WBC 9.32 (3.98-10.04) K/mm3 RBC 4.74 (3.98-5.22) M/mm3 Hgb 14.0 (11.2-15.7) gm/dl Hct 42.3 (34.1-44.9) % MCV 89.2 (79.4-94.8) fl MCH 29.5 (25.6-32.2) pg MCHC 33.1 (32.2-35.5) g/dl RDW Std Deviation 43.8 (36.4-46.3) fL Plt Count 242 (182-369) K/mm3 MPV 10.6 (9.4-12.3) fl Neutrophils % (Manual) 82 H (40-60) % Band Neutrophils % 2 (0-10) % Lymphocytes % (Manual) 8 L (20-40) % Atypical Lymphs % 0 % Monocytes % (Manual) 8 (2-10) % Eosinophils % (Manual) 0 L (0.7-5.8) % Basophils % (Manual) 0 L (0.1-1.2) Platelet Estimate Adequate RBC Morph Comment Normal D-Dimer, Quantitative 2.59 H (0.19-0.50) mg/L Puncture Site ABG pH (7.35-7.45) ABG pCO2 (35.0-45.0) mmHg ABG pO2 (80.0-100.0) mmHg ABG HCO3 (22.0-26.0) meq/L ABG O2 Saturation (96.0-97.0) % ABG Base Excess (-2-2.0) Wing Test A-a Gradient mmHg O2 Delivery Device Oxygen Flow Rate FiO2 (21.00-100.00) % Sodium 133 L (136-145) mEq/L Potassium 3.3 L (3.5-5.1) mEq/L Chloride 97 L (98-107) mEq/L Carbon Dioxide 25 (21-32) mEq/L Anion Gap 14.3 (5-15) BUN 13 (7-18) mg/dL Creatinine 0.9 (0.55-1.02) mg/dL Est Cr Clr Drug Dosing 43.77 mL/min Estimated GFR (MDRD) > 60 (>60) mL/min BUN/Creatinine Ratio 14.4 (14-18) Glucose 88 (83-115) mg/dL Lactic Acid (0.4-2.0) mmol/L Calcium 8.7 (8.5-10.1) mg/dL Magnesium (1.8-2.4) mg/dl Total Bilirubin 0.7 (0.2-1.0) mg/dL AST 128 H (15-37) U/L ALT 87 H (14-59) U/L Alkaline Phosphatase 60 (46-116) U/L Troponin I 0.025 (0.00-0.056) ng/mL NT-Pro-B Natriuret Pep (0-450) pg/mL Total Protein 7.5 (6.4-8.2) g/dl Albumin 3.1 L (3.4-5.0) g/dl Globulin 4.4 gm/dL Albumin/Globulin Ratio 0.7 L (1-2) TSH 3rd Generation (0.358-3.74) uIU/mL Influenza Type A RNA (NEGATIVE) Influenza Type B RNA (NEGATIVE) SARS-CoV-2 RNA (HUMAIRA) (NEGATIVE) MRSA (PCR) 07/27/20 07/27/20 07/27/20 Range/Units 19:30 19:30 19:30 WBC (3.98-10.04) K/mm3 RBC (3.98-5.22) M/mm3 Hgb (11.2-15.7) gm/dl Hct (34.1-44.9) % MCV (79.4-94.8) fl MCH (25.6-32.2) pg MCHC (32.2-35.5) g/dl RDW Std Deviation (36.4-46.3) fL Plt Count (182-369) K/mm3 MPV (9.4-12.3) fl Neutrophils % (Manual) (40-60) % Band Neutrophils % (0-10) % Lymphocytes % (Manual) (20-40) % Atypical Lymphs % % Monocytes % (Manual) (2-10) % Eosinophils % (Manual) (0.7-5.8) % Basophils % (Manual) (0.1-1.2) Platelet Estimate RBC Morph Comment D-Dimer, Quantitative (0.19-0.50) mg/L Puncture Site ABG pH (7.35-7.45) ABG pCO2 (35.0-45.0) mmHg ABG pO2 (80.0-100.0) mmHg ABG HCO3 (22.0-26.0) meq/L ABG O2 Saturation (96.0-97.0) % ABG Base Excess (-2-2.0) Wing Test A-a Gradient mmHg O2 Delivery Device Oxygen Flow Rate FiO2 (21.00-100.00) % Sodium (136-145) mEq/L Potassium (3.5-5.1) mEq/L Chloride (98-107) mEq/L Carbon Dioxide (21-32) mEq/L Anion Gap (5-15) BUN (7-18) mg/dL Creatinine (0.55-1.02) mg/dL Est Cr Clr Drug Dosing mL/min Estimated GFR (MDRD) (>60) mL/min BUN/Creatinine Ratio (14-18) Glucose (83-115) mg/dL Lactic Acid 2.0 (0.4-2.0) mmol/L Calcium (8.5-10.1) mg/dL Magnesium 2.0 (1.8-2.4) mg/dl Total Bilirubin (0.2-1.0) mg/dL AST (15-37) U/L ALT (14-59) U/L Alkaline Phosphatase (46-116) U/L Troponin I (0.00-0.056) ng/mL NT-Pro-B Natriuret Pep 376 (0-450) pg/mL Total Protein (6.4-8.2) g/dl Albumin (3.4-5.0) g/dl Globulin gm/dL Albumin/Globulin Ratio (1-2) TSH 3rd Generation (0.358-3.74) uIU/mL Influenza Type A RNA (NEGATIVE) Influenza Type B RNA (NEGATIVE) SARS-CoV-2 RNA (HUMAIRA) (NEGATIVE) MRSA (PCR) 07/27/20 07/27/20 07/28/20 Range/Units 19:40 20:09 01:14 WBC (3.98-10.04) K/mm3 RBC (3.98-5.22) M/mm3 Hgb (11.2-15.7) gm/dl Hct (34.1-44.9) % MCV (79.4-94.8) fl MCH (25.6-32.2) pg MCHC (32.2-35.5) g/dl RDW Std Deviation (36.4-46.3) fL Plt Count (182-369) K/mm3 MPV (9.4-12.3) fl Neutrophils % (Manual) (40-60) % Band Neutrophils % (0-10) % Lymphocytes % (Manual) (20-40) % Atypical Lymphs % % Monocytes % (Manual) (2-10) % Eosinophils % (Manual) (0.7-5.8) % Basophils % (Manual) (0.1-1.2) Platelet Estimate RBC Morph Comment D-Dimer, Quantitative (0.19-0.50) mg/L Puncture Site Lt radial ABG pH 7.42 (7.35-7.45) ABG pCO2 37.6 (35.0-45.0) mmHg ABG pO2 55.0 L (80.0-100.0) mmHg ABG HCO3 23.9 (22.0-26.0) meq/L ABG O2 Saturation 88.4 L (96.0-97.0) % ABG Base Excess 0.1 (-2-2.0) Wing Test Positive A-a Gradient 48 mmHg O2 Delivery Device Room air Oxygen Flow Rate 0.0 FiO2 21.00 (21.00-100.00) % Sodium (136-145) mEq/L Potassium (3.5-5.1) mEq/L Chloride (98-107) mEq/L Carbon Dioxide (21-32) mEq/L Anion Gap (5-15) BUN (7-18) mg/dL Creatinine (0.55-1.02) mg/dL Est Cr Clr Drug Dosing mL/min Estimated GFR (MDRD) (>60) mL/min BUN/Creatinine Ratio (14-18) Glucose (83-115) mg/dL Lactic Acid (0.4-2.0) mmol/L Calcium (8.5-10.1) mg/dL Magnesium (1.8-2.4) mg/dl Total Bilirubin (0.2-1.0) mg/dL AST (15-37) U/L ALT (14-59) U/L Alkaline Phosphatase (46-116) U/L Troponin I (0.00-0.056) ng/mL NT-Pro-B Natriuret Pep (0-450) pg/mL Total Protein (6.4-8.2) g/dl Albumin (3.4-5.0) g/dl Globulin gm/dL Albumin/Globulin Ratio (1-2) TSH 3rd Generation (0.358-3.74) uIU/mL Influenza Type A RNA Negative (NEGATIVE) Influenza Type B RNA Negative (NEGATIVE) SARS-CoV-2 RNA (HUMAIRA) Positive H (NEGATIVE) MRSA (PCR) Negative 07/28/20 Range/Units 04:20 WBC (3.98-10.04) K/mm3 RBC (3.98-5.22) M/mm3 Hgb (11.2-15.7) gm/dl Hct (34.1-44.9) % MCV (79.4-94.8) fl MCH (25.6-32.2) pg MCHC (32.2-35.5) g/dl RDW Std Deviation (36.4-46.3) fL Plt Count (182-369) K/mm3 MPV (9.4-12.3) fl Neutrophils % (Manual) (40-60) % Band Neutrophils % (0-10) % Lymphocytes % (Manual) (20-40) % Atypical Lymphs % % Monocytes % (Manual) (2-10) % Eosinophils % (Manual) (0.7-5.8) % Basophils % (Manual) (0.1-1.2) Platelet Estimate RBC Morph Comment D-Dimer, Quantitative (0.19-0.50) mg/L Puncture Site ABG pH (7.35-7.45) ABG pCO2 (35.0-45.0) mmHg ABG pO2 (80.0-100.0) mmHg ABG HCO3 (22.0-26.0) meq/L ABG O2 Saturation (96.0-97.0) % ABG Base Excess (-2-2.0) Wing Test A-a Gradient mmHg O2 Delivery Device Oxygen Flow Rate FiO2 (21.00-100.00) % Sodium (136-145) mEq/L Potassium (3.5-5.1) mEq/L Chloride (98-107) mEq/L Carbon Dioxide (21-32) mEq/L Anion Gap (5-15) BUN (7-18) mg/dL Creatinine (0.55-1.02) mg/dL Est Cr Clr Drug Dosing mL/min Estimated GFR (MDRD) (>60) mL/min BUN/Creatinine Ratio (14-18) Glucose (83-115) mg/dL Lactic Acid (0.4-2.0) mmol/L Calcium (8.5-10.1) mg/dL Magnesium (1.8-2.4) mg/dl Total Bilirubin (0.2-1.0) mg/dL AST (15-37) U/L ALT (14-59) U/L Alkaline Phosphatase (46-116) U/L Troponin I (0.00-0.056) ng/mL NT-Pro-B Natriuret Pep (0-450) pg/mL Total Protein (6.4-8.2) g/dl Albumin (3.4-5.0) g/dl Globulin gm/dL Albumin/Globulin Ratio (1-2) TSH 3rd Generation 0.897 (0.358-3.74) uIU/mL Influenza Type A RNA (NEGATIVE) Influenza Type B RNA (NEGATIVE) SARS-CoV-2 RNA (HUMAIRA) (NEGATIVE) MRSA (PCR) Result Diagrams: 07/27/20 19:30 07/27/20 19:30 Sepsis Event Note - Evaluation Sepsis Screening Result: No Definite Risk - Focused Exam Vital Signs: Vital Signs Temp Pulse Pulse Resp BP BP Pulse Ox 07/28/20 06:11 07/28/20 03:24 97.5 F 67 20 117/62 95 07/28/20 01:00 07/27/20 23:16 99.1 F 87 20 146/63 H 94 L 07/27/20 20:07 90 L 07/27/20 19:45 91 26 H 154/77 H 95 Pulse Ox 07/28/20 06:11 96 07/28/20 03:24 07/28/20 01:00 95 07/27/20 23:16 07/27/20 20:07 07/27/20 19:45 - Problem List (1) COVID-19 SNOMED Code(s): 373757162 ICD Code: U07.1 - COVID-19 Status: Acute Priority: High Current Visit: Yes (2) Hypoxia SNOMED Code(s): 555185906 ICD Code: R09.02 - HYPOXEMIA Status: Acute Priority: High Current Vis it: Yes (3) Hypokalemia SNOMED Code(s): 44436014 ICD Code: E87.6 - HYPOKALEMIA Status: Acute Priority: High Current Visit: Yes (4) Elevated d-dimer SNOMED Code(s): 894381534 ICD Code: R79.89 - OTHER SPECIFIED ABNORMAL FINDINGS OF BLOOD CHEMISTRY Status: Acute Priority: High Current Visit: Yes (5) Hypothyroidism SNOMED Code(s): 56808674 ICD Code: E03.9 - HYPOTHYROIDISM, UNSPECIFIED Status: Chronic Priority: Low Current Visit: No Qualifiers: Hypothyroidism type: unspecified Qualified Code(s): E03.9 - Hypothyroidism, unspecified (6) Hypertension SNOMED Code(s): 33982891 ICD Code: I10 - ESSENTIAL (PRIMARY) HYPERTENSION Status: Chronic Priority: Medium Current Visit: No Qualifiers: Hypertension type: unspecified Qualified Code(s): I10 - Essential (primary) hypertension (7) Hyponatremia SNOMED Code(s): 82724937 ICD Code: E87.1 - HYPO-OSMOLALITY AND HYPONATREMIA Status: Acute Current Visit: Yes (8) Transaminitis SNOMED Code(s): 586306721, 325379423 ICD Code: R74.01 - ELEVATION OF LEVELS OF LIVER TRANSAMINASE LEVELS Status: Acute Current Visit: Yes (9) Obesity (BMI 30.0-34.9) SNOMED Code(s): 438779025137844 ICD Code: E66.9 - OBESITY, UNSPECIFIED Status: Chronic Priority: Medium Current Visit: Yes Problem List Initiated/Reviewed/Updated: Yes Orders Last 24hrs: Active Orders 24 hr Category Date Time Status Patient Status [ADT] Routine ADT 07/27/20 22:41 Active EKG Documentation Completion [RC] STAT Care 07/27/20 19:49 Active Oxygen Therapy [RC] PRN Care 07/27/20 22:41 Active RT Aerosol Therapy [RC] ASDIRECTED Care 07/27/20 22:44 Active RT Chest Physiotherapy [RC] ASDIRECTED Care 07/27/20 22:48 Active RT Incentive Spirometry [RC] ASDIRECTED Care 07/27/20 22:47 Active Up With Assistance [RC] ASDIRECTED Care 07/27/20 22:41 Active VTE/DVT Education [RC] PER UNIT ROUTINE Care 07/27/20 22:41 Active Vital Signs [RC] Q4H Care 07/27/20 22:41 Active PT Evaluation and Treatment [CONS] Routine Cons 07/27/20 22:41 Active Regular Diet [DIET] Diet 07/28/20 Breakfast Active Ang Chest [CT] Stat Exams 07/27/20 20:35 Taken Chest 2V [CR] Stat Exams 07/27/20 19:49 Taken CULTURE BLOOD [BC] Stat Lab 07/27/20 20:39 Received CULTURE BLOOD [BC] Stat Lab 07/27/20 20:49 Received Acetaminophen [TylenoL] Med 07/27/20 22:41 Active 650 mg PO Q4H PRN Albuterol [Proventil Neb Soln] Med 07/27/20 22:41 Active 2.5 mg NEB Q2H PRN Albuterol/Ipratropium [DuoNeb 3.0-0.5 MG/3 ML] Med 07/27/20 22:41 Active 3 ml NEB Q4H PRN Benzonatate [Tessalon Perles] Med 07/27/20 22:47 Active 100 mg PO TID PRN Codeine/guaiFENesin [Robitussin AC] Med 07/27/20 22:47 Active 5 ml PO Q4H PRN Enoxaparin [Lovenox] Med 07/28/20 09:00 Active 40 mg SUBCUT DAILY Levothyroxine [Synthroid] Med 07/28/20 09:00 Active 88 mcg PO DAILY Ondansetron [Zofran] Med 07/27/20 22:41 Active 4 mg IV Q4H PRN Remdesivir 100 mg Med 07/28/20 22:00 Active Sodium Chloride 0.9% [Normal Saline] 100 ml IV Q24H Sodium Chloride 0.9% [Normal Saline] 1,000 ml Med 07/27/20 20:45 Active IV ASDIRECTED Sodium Chloride 0.9% [Normal Saline] 100 ml Med 07/27/20 21:00 Active IV ASDIRECTED Sodium Chloride 0.9% [Saline Flush] Med 07/27/20 21:00 Active 10 ml FLUSH ONARRIVE Blood Culture x2 Reflex Set [OM.PC] Stat Oth 07/27/20 19:49 Ordered Isolation [COMM] Routine Oth 07/27/20 19:52 Ordered Medication Orders Acetaminophen (Tylenol) 650 mg PO Q4H PRN PRN Reason: Pain (Mild 1-3)/fever Albuterol (Proventil Neb Soln) 2.5 mg NEB Q2H PRN PRN Reason: Shortness Of Breath/wheezing Albuterol/Ipratropium (Duoneb 3.0-0.5 Mg/3 Ml) 3 ml NEB Q4H PRN PRN Reason: Shortness Of Breath/wheezing Benzonatate (Tessalon Perles) 100 mg PO TID PRN PRN Reason: Cough Enoxaparin Sodium (Lovenox) 40 mg SUBCUT DAILY NAILA Guaifenesin/Codeine Phosphate (Robitussin Ac) 5 ml PO Q4H PRN PRN Reason: Cough Sodium Chloride (Normal Saline) 1,000 mls @ 100 mls/hr IV ASDIRECTED COUNT INCLUDES THE [facility] Last Admin: 07/27/20 20:50 Dose: 100 mls/hr Documented by: CATRACHITA Sodium Chloride (Normal Saline) 100 mls @ 60 mls/min IV ASDIRECTED NAILA Last Admin: 07/27/20 21:43 Dose: 60 mls/min Documented by: YOKASTA Remdesivir 100 mg/ Sodium (Chloride) 100 mls @ 100 mls/hr IV Q24H COUNT INCLUDES THE [facility] Stop: 07/31/20 22:59 Levothyroxine Sodium (Synthroid) 88 mcg PO DAILY COUNT INCLUDES THE [facility] Ondansetron HCl (Zofran) 4 mg IV Q4H PRN PRN Reason: Nausea/Vomiting Sodium Chloride (Saline Flush) 10 ml FLUSH ONARRIVE COUNT INCLUDES THE [facility] Last Admin: 07/27/20 21:43 Dose: 10 ml Documented by: YOKASTA Assessment/Plan Comment:: Assessment - Day of admission 07/28/2020 (admitted overnight 07/27/2020): * 80 yo female who presents to ED with SOB, Fatigue, cough, and body aches * Denies fever, diarrhea, nausea/vomiting * hospitalized for COVID-19 after testing positive on 07/23/2020 * Oxygen saturations of 81% on room air in ED, 96% on 2L * 12-Lead EGK: NSR at 89 BPM with no signs of ischemia * CXR in ED: Bilateral hazy infiltrates, worse on right than on left * CTA in ED: Limited pulmonary arterial visualization, No evidence of central PE, Consider PAH, Diffuse pulmonary parenchymal abnormality Bilateral renal calculi * Labs: * WBC 9.32 * Hgb 14.0 * Plt 212 * D-dimer 2.59 * Sodium 133 * Potassium 3.3 * GFR >60 * Bilirubin 0.7 * AST 128, ALT 87, Alk phos 60 * Troponin 0.025 * Albumin 3.1 * Lactic acid 2.0 * Magnesium 2.0 * Pro-BNP 376 * ABG: pH 7.42, PCO2 37.6, PO2 55, HCO3 23.9, oxygen saturation 88.4 base excess 0.1, A-a gradient 48, on room air * TSH 0.897 * Influenza A and B - Negative * SARS-CoV-2 - positive * MRSA - negative * Admitted to [facility] for treatment of COVID-19, Hypokalemia, Hyponatremia, Hypoxia. Plan: COVID-19 Hypoxia Elevated d-dimer Transaminitis Obesity * Remdesivir day 08/16 * Dexamethasone day 09/21 * Start azithromycin day 08/14 * Start Rocephin day 08/16 * O2 as needed * RT/IS/Acapella * Start daily zinc 220mg * Check Vitamin D level and supplement if indicated * Airborne and contact isolation * Start daily 81 mg ASA * Lovenox 40mg BID due to elevated D-Dimer * Encourage ambulation around room * Encourage proning * Monitor daily labs * Check D-dimer Q48H * Telemetry/continuous pulse oximeter * PT consultation * CM/SW Hypokalemia Hyponatremia * Supplement potassium * Vibratory Pile Driver consult * Monitor labs Hypothyroidism Hypertension * Continue home Levothyroxine * Hold home HCTZ * TSH WNL * Monitor vital signs Q8H PCP: Dr. Mars Code status: Full Code DVT prophylaxis: Lovenox Social: Patient lives with in [place]. is admitted to [facility] unit for COVID-19 as well. Disposition: Patient admitted for treatment of COVID-19, Hypoxia, and electrolyte abnormalities. LOS >96 hrs to complete treatment for COVID-19. Prognosis: Good - Mortality Measure Prognosis:: Good
[2020-07-28] MEDS: Zinc Sulfate 220 MG Cap PO SCH (08:32)
[2020-07-28] MEDS: Aspirin 81 MG Tab.EC PO SCH (08:32)
[2020-07-28] MEDS: Levothyroxine 88 MCG Tab PO SCH (08:33)
[2020-07-28] MEDS: Codeine/guaiFENesin 10-100 MG/5 ML Syrup 5 ML Cup PO PRN ×2 (08:43→20:35)
--- NOTE | 2020-07-28 08:50 | CR ---
Chest: 2 views of the chest were obtained. Comparison: No prior chest imaging is available. Patchy areas of increased density are seen within both sides of the chest. Findings are worse within the right perihilar and right upper lobe. Heart size is at the upper limits of normal. Tortuous thoracic aorta is seen. Scattered degenerative change is noted within the spine. Impression: 1. Patchy areas of increased density within both sides of the chest. Please exclude the possibility of COVID etiology. 2. Other findings believed to be incidental as noted above. Diagnostic code #3
--- NOTE | 2020-07-28 08:56 | CT ---
CT chest Technique: Multiple axial sections were obtained through the chest. Study performed as a pulmonary angiogram protocol. Intravenous contrast was therefore utilized. Comparison: Prior chest CT study performed earlier on the same day. Findings: Thoracic aorta shows atherosclerotic change without aneurysm. Pulmonary arteries are mildly limited in opacification. No findings of pulmonary embolism within the main or segmental branches. Smaller subsegmental pulmonary biotic could be missed. There are scattered lymph nodes within the mediastinum which are most likely incidental. Several calcifications are seen with the left kidney compatible with nonobstructing stone. Calcification is seen which is parenchymal in location within the right kidney measuring 1.6 cm which is likely dystrophic. Small hiatal hernia is present. Slight reflux of contrast into the inferior vena cava and proximal hepatic vein is seen. Lung window settings were obtained which showed diffuse parenchymal densities within both sides of the chest. No pleural effusions are seen. No acute osseous finding is appreciated. Scattered degenerative change is noted within the spine. Impression: 1. Diffuse parenchymal densities on both sides of the chest. Findings most likely represent pneumonia. Please exclude a COVID etiology. 2. No definite pulmonary embolism is seen as noted above. 3. Other findings as described. Diagnostic code #3 I agree with preliminary report from [facility], finalized on 07/27/20, 10:52 PM [employer] ESTEFANI
[2020-07-28] MEDS ORDERED: Enoxaparin 40 MG/0.4 ML Syringe SUBCUT SCH (09:00)
[2020-07-28] MEDS: cefTRIAXone 2 GM in Sodium Chloride 0.9% 100 ML IV SCH (09:46)
[2020-07-28] MEDS: Azithromycin 250 MG Tab PO SCH (09:52)
[2020-07-28] MEDS: Dexamethasone 4 MG Tab PO SCH (20:28)
[2020-07-28] MEDS: Enoxaparin 40 MG/0.4 ML Syringe SUBCUT SCH (20:30)
[2020-07-28] MEDS: REMDESIVIR 100 MG in Sodium Chloride 0.9% 100 ML IV SCH (21:00)
[2020-07-29] MEDS: Codeine/guaiFENesin 10-100 MG/5 ML Syrup 5 ML Cup PO PRN ×2 (05:23→22:53)
--- NOTE | 2020-07-29 07:22 | PCM.PN ---
- General Info Date of Service: 07/29/20 Admission Dx/Problem (Free Text): Admission Diagnosis/Problem Admission Diagnosis/Problem Hypoxemia Subjective Update: In to see Yessi. Blood sugars have been a bit elevated so will start AM/PM glucose checks and check A1C today. Electrolytes remain stable. She is down to 2L today. Continuing COVID-19 treatment. She repots she feels better today. She states neither her nor her drive and they often get rides where they need to from sabian[employer] members. Functional Status: Reports: Pain Controlled, Tolerating Diet, Ambulating, Urinating, Incentive Spirometry, Other (Acapella ). Denies: New Symptoms - Review of Systems General: Reports: Weakness (improving ). Denies: Fever, Fatigue, Malaise, Chills HEENT: Reports: No Symptoms. Denies: Headaches, Sore Throat Pulmonary: Reports: Shortness of Breath, Cough. Denies: Pleuritic Chest Pain, Sputum, Wheezing Cardiovascular: Reports: Dyspnea on Exertion. Denies: Chest Pain, Palpitations, Edema Gastrointestinal: Reports: No Symptoms. Denies: Abdominal Pain, Constipation, Diarrhea, Nausea, Vomiting Genitourinary: Reports: No Symptoms. Denies: Pain Musculoskeletal: Reports: No Symptoms Skin: Reports: No Symptoms. Denies: Cyanosis Neurological: Reports: No Symptoms. Denies: Confusion, Difficulty Walking, Gait Disturbance Psychiatric: Reports: No Symptoms - Patient Data Vitals - Most Recent: Last Vital Signs Temp 97.5 F 07/28/20 20:16 Pulse 64 07/29/20 05:01 Resp 22 H 07/28/20 23:50 BP 115/70 07/29/20 05:01 Pulse Ox 92 L 07/29/20 05:31 Weight - Most Recent: 205 lb 4.8 oz I&O - Last 24 Hours: Intake & Output 07/28/20 07/29/20 07/29/20 22:59 06:59 14:59 Intake Total 2700 400 Output Total 400 550 Balance 2300 -150 Lab Results Last 24 Hours: Laboratory Results - last 24 hr 07/29/20 07/29/20 07/29/20 Range/Units 04:17 04:17 04:17 WBC 10.49 H (3.98-10.04) K/mm3 RBC 4.53 (3.98-5.22) M/mm3 Hgb 13.3 (11.2-15.7) gm/dl Hct 41.4 (34.1-44.9) % MCV 91.4 (79.4-94.8) fl MCH 29.4 (25.6-32.2) pg MCHC 32.1 L (32.2-35.5) g/dl RDW Std Deviation 46.0 (36.4-46.3) fL Plt Count 227 (182-369) K/mm3 MPV 10.8 (9.4-12.3) fl Neut % (Auto) 86.1 H (34.0-71.1) % Lymph % (Auto) 7.9 L (19.3-51.7) % [place] % (Auto) 5.4 (4.7-12.5) % Eos % (Auto) 0 L (0.7-5.8) Baso % (Auto) 0.1 (0.1-1.2) % Neut # (Auto) 9.03 H (1.56-6.13) K/mm3 Lymph # (Auto) 0.83 L (1.18-3.74) K/mm3 [place] # (Auto) 0.57 H (0.24-0.36) K/mm3 Eos # (Auto) 0.00 L (0.04-0.36) K/mm3 Baso # (Auto) 0.01 (0.01-0.08) K/mm3 D-Dimer, Quantitative 1.82 H (0.19-0.50) mg/L Sodium (136-145) mEq/L Potassium (3.5-5.1) mEq/L Chloride (98-107) mEq/L Carbon Dioxide (21-32) mEq/L Anion Gap (5-15) BUN (7-18) mg/dL Creatinine (0.55-1.02) mg/dL Est Cr Clr Drug Dosing mL/min Estimated GFR (MDRD) (>60) mL/min BUN/Creatinine Ratio (14-18) Glucose (83-115) mg/dL Calcium (8.5-10.1) mg/dL Phosphorus (2.6-4.7) mg/dL Magnesium (1.8-2.4) mg/dl Total Bilirubin (0.2-1.0) mg/dL AST (15-37) U/L ALT (14-59) U/L Alkaline Phosphatase (46-116) U/L C-Reactive Protein (<1.0) mg/dL Total Protein (6.4-8.2) g/dl Albumin (3.4-5.0) g/dl Globulin gm/dL Albumin/Globulin Ratio (1-2) Vitamin D 25-Hydroxy 30.1 (30.0-100.0) ng/ml 07/29/20 Range/Units 04:17 WBC (3.98-10.04) K/mm3 RBC (3.98-5.22) M/mm3 Hgb (11.2-15.7) gm/dl Hct (34.1-44.9) % MCV (79.4-94.8) fl MCH (25.6-32.2) pg MCHC (32.2-35.5) g/dl RDW Std Deviation (36.4-46.3) fL Plt Count (182-369) K/mm3 MPV (9.4-12.3) fl Neut % (Auto) (34.0-71.1) % Lymph % (Auto) (19.3-51.7) % [place] % (Auto) (4.7-12.5) % Eos % (Auto) (0.7-5.8) Baso % (Auto) (0.1-1.2) % Neut # (Auto) (1.56-6.13) K/mm3 Lymph # (Auto) (1.18-3.74) K/mm3 [place] # (Auto) (0.24-0.36) K/mm3 Eos # (Auto) (0.04-0.36) K/mm3 Baso # (Auto) (0.01-0.08) K/mm3 D-Dimer, Quantitative (0.19-0.50) mg/L Sodium 138 (136-145) mEq/L Potassium 4.5 (3.5-5.1) mEq/L Chloride 104 (98-107) mEq/L Carbon Dioxide 29 (21-32) mEq/L Anion Gap 9.5 (5-15) BUN 23 H (7-18) mg/dL Creatinine 0.8 (0.55-1.02) mg/dL Est Cr Clr Drug Dosing 49.60 mL/min Estimated GFR (MDRD) > 60 (>60) mL/min BUN/Creatinine Ratio 28.8 H (14-18) Glucose 160 H (83-115) mg/dL Calcium 8.7 (8.5-10.1) mg/dL Phosphorus 3.6 (2.6-4.7) mg/dL Magnesium 2.4 (1.8-2.4) mg/dl Total Bilirubin 0.2 (0.2-1.0) mg/dL AST 60 H (15-37) U/L ALT 73 H (14-59) U/L Alkaline Phosphatase 51 (46-116) U/L C-Reactive Protein 17.0 H* (<1.0) mg/dL Total Protein 6.3 L (6.4-8.2) g/dl Albumin 2.4 L (3.4-5.0) g/dl Globulin 3.9 gm/dL Albumin/Globulin Ratio 0.6 L (1-2) Vitamin D 25-Hydroxy (30.0-100.0) ng/ml Sea Results Last 24 Hours: Microbiology 07/27/20 20:49 Aerobic Blood Culture - Preliminary Blood - Venous - Lab Draw NO GROWTH AFTER 1 DAY Anaerobic Blood Culture - Preliminary NO GROWTH AFTER 1 DAY 07/27/20 20:39 Aerobic Blood Culture - Preliminary Blood - Venous NO GROWTH AFTER 1 DAY Anaerobic Blood Culture - Preliminary NO GROWTH AFTER 1 DAY Med Orders - Current: Current Medications Acetaminophen (Tylenol) 650 mg PO Q4H PRN PRN Reason: Pain (Mild 1-3)/fever Albuterol (Proventil Neb Soln) 2.5 mg NEB Q2H PRN PRN Reason: Shortness Of Breath/wheezing Last Admin: 07/29/20 05:30 Dose: 2.5 mg Documented by: Albuterol/Ipratropium (Duoneb 3.0-0.5 Mg/3 Ml) 3 ml NEB Q4H PRN PRN Reason: Shortness Of Breath/wheezing Aspirin (Halfprin) 81 mg PO DAILY [facility] Last Admin: 07/28/20 08:32 Dose: 81 mg Documented by: Azithromycin (Zithromax) 500 mg PO DAILY [facility] Stop: 07/30/20 09:01 Last Admin: 07/28/20 09:52 Dose: 500 mg Documented by: Benzonatate (Tessalon Perles) 100 mg PO TID PRN PRN Reason: Cough Dexamethasone (Dexamethasone) 6 mg PO BEDTIME NAILA Stop: 08/05/20 21:01 Last Admin: 07/28/20 20:28 Dose: 6 mg Documented by: Enoxaparin Sodium (Lovenox) 40 mg SUBCUT BID [facility] Last Admin: 07/28/20 20:30 Dose: 40 mg Documented by: Guaifenesin/Codeine Phosphate (Robitussin Ac) 5 ml PO Q4H PRN PRN Reason: Cough Last Admin: 07/29/20 05:23 Dose: 5 ml Documented by: Remdesivir 100 mg/ Sodium (Chloride) 100 mls @ 100 mls/hr IV Q24H NAILA Stop: 07/31/20 22:59 Last Admin: 07/28/20 21:00 Dose: 100 mls/hr Documented by: Ceftriaxone Sodium 2 gm/ (Sodium Chloride) 100 mls @ 200 mls/hr IV Q24H NAILA Stop: 08/01/20 09:59 Last Admin: 07/28/20 09:46 Dose: 200 mls/hr Documented by: Levothyroxine Sodium (Synthroid) 88 mcg PO DAILY [facility] Last Admin: 07/28/20 08:33 Dose: 88 mcg Documented by: Ondansetron HCl (Zofran) 4 mg IV Q4H PRN PRN Reason: Nausea/Vomiting Sodium Chloride (Saline Flush) 10 ml FLUSH ONARRIVE [facility] Last Admin: 07/27/20 21:43 Dose: 10 ml Documented by: Zinc Sulfate (Zincate) 220 mg PO DAILY [facility] Last Admin: 07/28/20 08:32 Dose: 220 mg Documented by: Discontinued Medications Dexamethasone (Decadron) 6 mg IVPUSH ONETIME STA Stop: 07/27/20 22:03 Last Admin: 07/27/20 22:14 Dose: 6 mg Documented by: Enoxaparin Sodium (Lovenox) 40 mg SUBCUT DAILY [facility] Last Admin: 07/28/20 08:33 Dose: 40 mg Documented by: Sodium Chloride (Normal Saline) 1,000 mls @ 100 mls/hr IV ASDIRECTED NAILA Stop: 07/29/20 00:03 Last Admin: 07/27/20 20:50 Dose: 100 mls/hr Documented by: Sodium Chloride (Normal Saline) 100 mls @ 60 mls/min IV ASDIRECTED NAILA Last Admin: 07/27/20 21:43 Dose: 60 mls/min Documented by: Remdesivir 200 mg/ Sodium (Chloride) 250 mls @ 250 mls/hr IV ONETIME ONE Stop: 07/27/20 22:45 Last Admin: 07/28/20 00:00 Dose: 250 mls/hr Documented by: Iopamidol (Isovue-370 (76%)) 100 ml IVPUSH ONETIME ONE Stop: 07/27/20 20:54 Last Admin: 07/27/20 21:43 Dose: 100 ml Documented by: Potassium Chloride (Klor-Con M20) 40 meq PO ONETIME ONE Stop: 07/27/20 22:47 Last Admin: 07/28/20 00:18 Dose: 40 meq Documented by: - Exam Quality Assessment: Supplemental Oxygen (2L), DVT Prophylaxis. No: Urine Catheter General: Alert, Oriented, Cooperative, No Acute Distress HEENT: Pupils Equal, Pupils Reactive, Mucous Membr. Moist/[place] Neck: Supple, Trachea Midline Lungs: Normal Respiratory Effort, Decreased Breath Sounds, Crackles Cardiovascular: Regular Rate, Regular Rhythm GI/Abdominal Exam: Normal Bowel Sounds, Soft, Non-Tender, No Distention, No Abnormal Bruit (Female) Exam: Deferred Back Exam: Normal Inspection, Full Range of Motion Extremities: Normal Inspection, Normal Range of Motion, Non-Tender, No Pedal Edema, Normal Capillary Refill Skin: Warm, Dry, Intact Neurological: No New Focal Deficit Psy/Mental Status: Alert, Normal Affect, Normal Mood Sepsis Event Note - Evaluation Sepsis Screening Result: No Definite Risk - Focused Exam Vital Signs: Vital Signs Temp Pulse Pulse Resp BP BP Pulse Ox 07/29/20 05:31 07/29/20 05:01 64 115/70 93 L 07/28/20 23:50 63 22 H 122/71 95 07/28/20 21:41 07/28/20 20:16 97.5 F 63 22 H 122/71 95 Pulse Ox 07/29/20 05:31 92 L 07/29/20 05:01 07/28/20 23:50 07/28/20 21:41 95 07/28/20 20:16 - Problem List & Annotations (1) COVID-19 SNOMED Code(s): 040221353 Code(s): U07.1 - COVID-19 Status: Acute Priority: High Current Visit: Yes (2) Hypoxia SNOMED Code(s): 603374601 Code(s): R09.02 - HYPOXEMIA Status: Acute Priority: High Current Visit: Yes (3) Hypokalemia SNOMED Code(s): 30625869 Code(s): E87.6 - HYPOKALEMIA Status: Acute Priority: High Current Visit: Yes (4) Elevated d-dimer SNOMED Code(s): 384964686 Code(s): R79.89 - OTHER SPECIFIED ABNORMAL FINDINGS OF BLOOD CHEMISTRY Status: Acute Priority: High Current Visit: Yes (5) Hypothyroidism SNOMED Code(s): 10331612 Code(s): E03.9 - HYPOTHYROIDISM, UNSPECIFIED Status: Chronic Priority: Low Current Visit: No Qualifiers: Hypothyroidism type: unspecified Qualified Code(s): E03.9 - Hypothyroidism, unspecified (6) Hypertension SNOMED Code(s): 94121221 Code(s): I10 - ESSENTIAL (PRIMARY) HYPERTENSION Status: Chronic Priority: Medium Current Visit: No Qualifiers: Hypertension type: unspecified Qualified Code(s): I10 - Essential (primary) hypertension (7) Hyponatremia SNOMED Code(s): 42940613 Code(s): E87.1 - HYPO-OSMOLALITY AND HYPONATREMIA Status: Acute Current Visit: Yes (8) Transaminitis SNOMED Code(s): 599717888, 401219566 Code(s): R74.01 - ELEVATION OF LEVELS OF LIVER TRANSAMINASE LEVELS Status: Acute Current Visit: Yes (9) Obesity (BMI 30.0-34.9) SNOMED Code(s): 477945223435236 Code(s): E66.9 - OBESITY, UNSPECIFIED Status: Chronic Priority: Medium Current Visit: Yes (10) Hyperglycemia SNOMED Code(s): 79243110 Code(s): R73.9 - HYPERGLYCEMIA, UNSPECIFIED Status: Acute Priority: High Current Visit: Yes - Problem List Review Problem List Initiated/Reviewed/Updated: Yes - My Orders Last 24 Hours: My Active Orders 07/28/20 08:21 Consult to Case Management/Liquid Loader [CONS] Routine Consult to Strap Machine Operator [CONS] Routine 07/28/20 09:00 Aspirin [Halfprin] 81 mg PO DAILY Azithromycin [Zithromax] 500 mg PO DAILY Zinc Sulfate [Zincate] 220 mg PO DAILY 07/28/20 09:30 cefTRIAXone [Rocephin] 2 gm Sodium Chloride 0.9% [Normal Saline] 100 ml IV Q24H 07/28/20 12:37 Code Status [Resuscitation Status] Routine 07/28/20 21:00 Enoxaparin [Lovenox] 40 mg SUBCUT BID dexAMETHasone 6 mg PO BEDTIME 07/29/20 04:17 CBC WITH AUTO DIFF [HEME] AM 07/29/20 07:21 A1C [GLYCOSYLATED HEMOGLOBIN,HGBA1C] [CHEM] Routine 07/29/20 09:00 Cholecalciferol (Vitamin D3) [Vitamin D3] 5,000 unit PO DAILY 07/30/20 05:11 CBC WITH AUTO DIFF [HEME] AM CMP [COMPREHENSIVE METABOLIC PN,CMP] [CHEM] AM CRP [C-REACTIVE PROTEIN] [CHEM] AM MAGNESIUM [CHEM] AM 07/31/20 05:11 CBC WITH AUTO DIFF [HEME] AM CMP [COMPREHENSIVE METABOLIC PN,CMP] [CHEM] AM CRP [C-REACTIVE PROTEIN] [CHEM] AM DD [D-DIMER QUANTITATIVE] [COAG] Q48H MAGNESIUM [CHEM] AM 08/01/20 05:11 CBC WITH AUTO DIFF [HEME] AM CMP [COMPREHENSIVE METABOLIC PN,CMP] [CHEM] AM CRP [C-REACTIVE PROTEIN] [CHEM] AM MAGNESIUM [CHEM] AM 08/02/20 05:11 DD [D-DIMER QUANTITATIVE] [COAG] Q48H - Assessment Assessment:: Assessment - Day of admission 07/28/2020 (admitted overnight 07/27/2020): * 80 yo female who presents to ED with SOB, Fatigue, cough, and body aches * Denies fever, diarrhea, nausea/vomiting * hospitalized for COVID-19 after testing positive on 07/23/2020 * Oxygen saturations of 81% on room air in ED, 96% on 2L * 12-Lead EGK: NSR at 89 BPM with no signs of ischemia * CXR in ED: Bilateral hazy infiltrates, worse on right than on left * CTA in ED: Limited pulmonary arterial visualization, No evidence of central PE, Consider PAH, Diffuse pulmonary parenchymal abnormality Bilateral renal calculi * Labs: * WBC 9.32 * Hgb 14.0 * Plt 212 * D-dimer 2.59 * Sodium 133 * Potassium 3.3 * GFR >60 * Bilirubin 0.7 * AST 128, ALT 87, Alk phos 60 * Troponin 0.025 * Albumin 3.1 * Lactic acid 2.0 * Magnesium 2.0 * Pro-BNP 376 * ABG: pH 7.42, PCO2 37.6, PO2 55, HCO3 23.9, oxygen saturation 88.4 base excess 0.1, A-a gradient 48, on room air * TSH 0.897 * Influenza A and B - Negative * SARS-CoV-2 - positive * MRSA - negative * Admitted to [facility] for treatment of COVID-19, Hypokalemia, Hyponatremia, Hypoxia. 07/29/2020: * Remains on 2L oxygen (improved) * Continues to utilize acapella/IS * Denies any new complaints * Labs * D-dimer improved to 1.82 * WBC 10.49 (steroid?) * Sodium 138 * Potassium 4.5 * Glucose 160 * A1C 6.3 * AST 60, ALT 73, Alk Phos 51 * CRP 17.0 * Albumin 2.0 * Vitamin D 30.1 * Continue current treatment plan * Repots she feels better * Continued cough but non-productive - Plan Plan:: COVID-19 Hypoxia Elevated d-dimer Transaminitis Obesity * Remdesivir day 09/16 * Dexamethasone day 10/19 * Start azithromycin day 2 * Start Rocephin day 2 * O2 as needed * RT/IS/Acapella * Start daily zinc 220mg * Airborne and contact isolation * Start daily 81 mg ASA * Lovenox 40mg BID due to elevated D-Dimer * Encourage ambulation around room * Encourage proning * Supplement vitamin D -5000U daily * Monitor daily labs * Check D-dimer Q48H * Telemetry/continuous pulse oximeter * PT consultation * CM/SW Hyperglycemia without diagnosis of DM * Likely 2/2 steroid administration * Monitor blood glucose AM/PM * Check A1C * Monitor need for insulin Hypokalemia, resolved Hyponatremia, resolved * Strap Machine Operator consult * Monitor labs Hypothyroidism Hypertension * Continue home Levothyroxine * Hold home HCTZ * TSH WNL * Monitor vital signs Q8H PCP: Dr. Mars Code status: Full Code DVT prophylaxis: Lovenox Social: Patient lives with in [place]. is admitted to [facility] unit for COVID-19 as well. She reports neither her nor her drive and they often get rides around town by [employer]ian[employer] members. Disposition: Patient admitted for treatment of COVID-19, Hypoxia, and electrolyte abnormalities. LOS >96 hrs to complete treatment for COVID-19. Prognosis: Good
[2020-07-29 07:48] LABS: HEMOGLOBIN A1C 6.3 % (4.50-6.20)
[2020-07-29] MEDS: Zinc Sulfate 220 MG Cap PO SCH (08:40)
[2020-07-29] MEDS: Azithromycin 250 MG Tab PO SCH (08:40)
[2020-07-29] MEDS: Aspirin 81 MG Tab.EC PO SCH (08:40)
[2020-07-29] MEDS: Levothyroxine 88 MCG Tab PO SCH (08:40)
[2020-07-29] MEDS: Cholecalciferol (Vitamin D3) 5,000 UNIT Cap PO SCH (08:40)
[2020-07-29] MEDS: cefTRIAXone 2 GM in Sodium Chloride 0.9% 100 ML IV SCH (08:42)
[2020-07-29] MEDS: Enoxaparin 40 MG/0.4 ML Syringe SUBCUT SCH ×2 (08:42→22:03)
[2020-07-29] MEDS: Dexamethasone 4 MG Tab PO SCH (22:02)
[2020-07-29] MEDS: REMDESIVIR 100 MG in Sodium Chloride 0.9% 100 ML IV SCH (22:03)
--- NOTE | 2020-07-30 06:35 | PCM.PN ---
- General Info Date of Service: 07/30/20 Admission Dx/Problem (Free Text): Admission Diagnosis/Problem Admission Diagnosis/Problem Hypoxemia Subjective Update: No overnight or acute issues. She feel weak and sore. No fever or chills. No shortness of breath but she is coughing up more. She is eating and drinking fine. GI/ complaints. She is still on 2L NC sating in the low 90s. She is somewhat hypothermic with leukocytosis. Functional Status: Reports: Pain Controlled, Tolerating Diet, Ambulating, Urinating, Incentive Spirometry. Denies: New Symptoms - Review of Systems General: Reports: Weakness, Fatigue, Malaise. Denies: Fever, Chills HEENT: Denies: Headaches, Sinus Congestion Pulmonary: Reports: Cough. Denies: Shortness of Breath Cardiovascular: Denies: Chest Pain, Dyspnea on Exertion, Lightheadedness Gastrointestinal: Denies: Abdominal Pain, Nausea, Vomiting Genitourinary: Denies: Incontinence Musculoskeletal: Denies: Joint Pain Skin: Denies: Rash Neurological: Denies: Dizziness, Seizure Psychiatric: Denies: Depression, Anxiety - Patient Data Vitals - Most Recent: Last Vital Signs Temp 36.7 C 07/30/20 04:57 Pulse 51 L 07/30/20 04:57 Resp 20 07/30/20 04:57 BP 126/53 L 07/29/20 20:29 Pulse Ox 95 07/30/20 06:07 Weight - Most Recent: 92.034 kg I&O - Last 24 Hours: Intake & Output 07/29/20 07/29/20 07/30/20 14:59 22:59 06:59 Intake Total 120 800 700 Output Total 350 1275 Balance 120 450 -575 Lab Results Last 24 Hours: Laboratory Results - last 24 hr 07/29/20 07/29/20 07/29/20 Range/Units 04:17 04:17 22:01 WBC (3.98-10.04) K/mm3 RBC (3.98-5.22) M/mm3 Hgb (11.2-15.7) gm/dl Hct (34.1-44.9) % MCV (79.4-94.8) fl MCH (25.6-32.2) pg MCHC (32.2-35.5) g/dl RDW Std Deviation (36.4-46.3) fL Plt Count (182-369) K/mm3 MPV (9.4-12.3) fl Neut % (Auto) (34.0-71.1) % Lymph % (Auto) (19.3-51.7) % [place] % (Auto) (4.7-12.5) % Eos % (Auto) (0.7-5.8) Baso % (Auto) (0.1-1.2) % Neut # (Auto) (1.56-6.13) K/mm3 Lymph # (Auto) (1.18-3.74) K/mm3 [place] # (Auto) (0.24-0.36) K/mm3 Eos # (Auto) (0.04-0.36) K/mm3 Baso # (Auto) (0.01-0.08) K/mm3 Manual Slide Review Abnormal smear POC Glucose 151 H (83-110) mg/dL Hemoglobin A1c 6.30 H (4.50-6.20) % 07/30/20 Range/Units 05:14 WBC 13.93 H (3.98-10.04) K/mm3 RBC 4.54 (3.98-5.22) M/mm3 Hgb 13.3 (11.2-15.7) gm/dl Hct 41.8 (34.1-44.9) % MCV 92.1 (79.4-94.8) fl MCH 29.3 (25.6-32.2) pg MCHC 31.8 L (32.2-35.5) g/dl RDW Std Deviation 46.8 H (36.4-46.3) fL Plt Count 281 (182-369) K/mm3 MPV 11.3 (9.4-12.3) fl Neut % (Auto) 89.1 H (34.0-71.1) % Lymph % (Auto) 6.2 L (19.3-51.7) % [place] % (Auto) 4.2 L (4.7-12.5) % Eos % (Auto) 0 L (0.7-5.8) Baso % (Auto) 0.1 (0.1-1.2) % Neut # (Auto) 12.42 H (1.56-6.13) K/mm3 Lymph # (Auto) 0.86 L (1.18-3.74) K/mm3 [place] # (Auto) 0.58 H (0.24-0.36) K/mm3 Eos # (Auto) 0.00 L (0.04-0.36) K/mm3 Baso # (Auto) 0.02 (0.01-0.08) K/mm3 Manual Slide Review POC Glucose (83-110) mg/dL Hemoglobin A1c (4.50-6.20) % Sea Results Last 24 Hours: Microbiology 07/27/20 20:49 Aerobic Blood Culture - Preliminary Blood - Venous - Lab Draw NO GROWTH AFTER 2 DAYS Anaerobic Blood Culture - Preliminary NO GROWTH AFTER 2 DAYS 07/27/20 20:39 Aerobic Blood Culture - Preliminary Blood - Venous NO GROWTH AFTER 2 DAYS Anaerobic Blood Culture - Preliminary NO GROWTH AFTER 2 DAYS Med Orders - Current: Current Medications Acetaminophen (Tylenol) 650 mg PO Q4H PRN PRN Reason: Pain (Mild 1-3)/fever Albuterol (Proventil Neb Soln) 2.5 mg NEB Q2H PRN PRN Reason: Shortness Of Breath/wheezing Last Admin: 07/29/20 05:30 Dose: 2.5 mg Documented by: Albuterol/Ipratropium (Duoneb 3.0-0.5 Mg/3 Ml) 3 ml NEB Q4H PRN PRN Reason: Shortness Of Breath/wheezing Aspirin (Halfprin) 81 mg PO DAILY [facility] Last Admin: 07/29/20 08:40 Dose: 81 mg Documented by: Azithromycin (Zithromax) 500 mg PO DAILY [facility] Stop: 07/30/20 09:01 Last Admin: 07/29/20 08:40 Dose: 500 mg Documented by: Benzonatate (Tessalon Perles) 100 mg PO TID PRN PRN Reason: Cough Cholecalciferol (Vitamin D3) 5,000 unit PO DAILY [facility] Last Admin: 07/29/20 08:40 Dose: 5,000 unit Documented by: Dexamethasone (Dexamethasone) 6 mg PO BEDTIME [facility] Stop: 08/05/20 21:01 Last Admin: 07/29/20 22:02 Dose: 6 mg Documented by: Enoxaparin Sodium (Lovenox) 40 mg SUBCUT BID [facility] Last Admin: 07/29/20 22:03 Dose: 40 mg Documented by: Guaifenesin/Codeine Phosphate (Robitussin Ac) 5 ml PO Q4H PRN PRN Reason: Cough Last Admin: 07/29/20 22:53 Dose: 5 ml Documented by: Remdesivir 100 mg/ Sodium (Chloride) 100 mls @ 100 mls/hr IV Q24H [facility] Stop: 07/31/20 22:59 Last Admin: 07/29/20 22:03 Dose: 100 mls/hr Documented by: Ceftriaxone Sodium 2 gm/ (Sodium Chloride) 100 mls @ 200 mls/hr IV Q24H [facility] Stop: 08/01/20 09:59 Last Admin: 07/29/20 08:42 Dose: 200 mls/hr Documented by: Levothyroxine Sodium (Synthroid) 88 mcg PO DAILY [facility] Last Admin: 07/29/20 08:40 Dose: 88 mcg Documented by: Ondansetron HCl (Zofran) 4 mg IV Q4H PRN PRN Reason: Nausea/Vomiting Sodium Chloride (Saline Flush) 10 ml FLUSH ONARRIVE [facility] Last Admin: 07/27/20 21:43 Dose: 10 ml Documented by: Zinc Sulfate (Zincate) 220 mg PO DAILY [facility] Last Admin: 07/29/20 08:40 Dose: 220 mg Documented by: Discontinued Medications Dexamethasone (Decadron) 6 mg IVPUSH ONETIME STA Stop: 07/27/20 22:03 Last Admin: 07/27/20 22:14 Dose: 6 mg Documented by: Enoxaparin Sodium (Lovenox) 40 mg SUBCUT DAILY [facility] Last Admin: 07/28/20 08:33 Dose: 40 mg Documented by: Sodium Chloride (Normal Saline) 1,000 mls @ 100 mls/hr IV ASDIRECTED [facility] Stop: 07/29/20 00:03 Last Admin: 07/27/20 20:50 Dose: 100 mls/hr Documented by: Sodium Chloride (Normal Saline) 100 mls @ 60 mls/min IV ASDIRECTED [facility] Last Admin: 07/27/20 21:43 Dose: 60 mls/min Documented by: Remdesivir 200 mg/ Sodium (Chloride) 250 mls @ 250 mls/hr IV ONETIME ONE Stop: 07/27/20 22:45 Last Admin: 07/28/20 00:00 Dose: 250 mls/hr Documented by: Iopamidol (Isovue-370 (76%)) 100 ml IVPUSH ONETIME ONE Stop: 07/27/20 20:54 Last Admin: 07/27/20 21:43 Dose: 100 ml Documented by: Potassium Chloride (Klor-Con M20) 40 meq PO ONETIME ONE Stop: 07/27/20 22:47 Last Admin: 07/28/20 00:18 Dose: 40 meq Documented by: - Exam Quality Assessment: Supplemental Oxygen, DVT Prophylaxis, Skin Breakdown General: Alert, Oriented, Cooperative, No Acute Distress, Other (Obese) HEENT: Pupils Equal, EOMI, Mucous Membr. Moist/[place], Other Neck: Supple Lungs: Normal Respiratory Effort, Decreased Breath Sounds Cardiovascular: Regular Rate, Regular Rhythm GI/Abdominal Exam: Normal Bowel Sounds, Soft, Non-Tender, No Organomegaly, No Distention, No Abnormal Bruit, No Mass, Other (Obese) (Female) Exam: Deferred Back Exam: Normal Inspection, Decreased Range of Motion Extremities: Normal Inspection, Normal Range of Motion, Non-Tender, No Pedal Edema, Normal Capillary Refill Peripheral Pulses: 2+: Dorsalis Pedis (L), Dorsalis Pedis (R) Skin: Warm, Dry, Intact Neurological: No New Focal Deficit Psy/Mental Status: Alert, Normal Affect, Normal Mood Sepsis Event Note - Evaluation Sepsis Screening Result: No Definite Risk - Focused Exam Vital Signs: Vital Signs Temp Pulse Resp BP Pulse Ox Pulse Ox 07/30/20 06:07 95 07/30/20 04:57 36.7 C 51 L 20 93 L 07/30/20 00:00 22 H 92 L 07/29/20 20:55 92 L 07/29/20 20:29 36.2 C 61 28 H 126/53 L 95 07/29/20 18:42 20 - Problem List Review Problem List Initiated/Reviewed/Updated: Yes - Assessment Assessment:: Assessment - Day of admission 07/28/2020 (admitted overnight 07/27/2020): * 80 yo female who presents to ED with SOB, Fatigue, cough, and body aches * Denies fever, diarrhea, nausea/vomiting * hospitalized for COVID-19 after testing positive on 07/23/2020 * Oxygen saturations of 81% on room air in ED, 96% on 2L * 12-Lead EGK: NSR at 89 BPM with no signs of ischemia * CXR in ED: Bilateral hazy infiltrates, worse on right than on left * CTA in ED: Limited pulmonary arterial visualization, No evidence of central PE, Consider PAH, Diffuse pulmonary parenchymal abnormality Bilateral renal calculi * Labs: * WBC 9.32 * Hgb 14.0 * Plt 212 * D-dimer 2.59 * Sodium 133 * Potassium 3.3 * GFR >60 * Bilirubin 0.7 * AST 128, ALT 87, Alk phos 60 * Troponin 0.025 * Albumin 3.1 * Lactic acid 2.0 * Magnesium 2.0 * Pro-BNP 376 * ABG: pH 7.42, PCO2 37.6, PO2 55, HCO3 23.9, oxygen saturation 88.4 base excess 0.1, A-a gradient 48, on room air * TSH 0.897 * Influenza A and B - Negative * SARS-CoV-2 - positive * MRSA - negative * Admitted to [facility] for treatment of COVID-19, Hypokalemia, Hyponatremia, Hypoxia. 07/29/2020: * Remains on 2L oxygen (improved) * Continues to utilize acapella/IS * Denies any new complaints * Labs * D-dimer improved to 1.82 * WBC 10.49 (steroid?) * Sodium 138 * Potassium 4.5 * Glucose 160 * A1C 6.3 * AST 60, ALT 73, Alk Phos 51 * CRP 17.0 * Albumin 2.0 * Vitamin D 30.1 * Continue current treatment plan * Repots she feels better * Continued cough but non-productive 07/30/2020: * Continue current treatment * She remains on 2L oxygen * Rocephin / and Veklury / day of treatment * Dexamethasone 6 mg po 09/20 * Completed Azithromycin * IS and beside pulmonary exercise * Vitamin D and zinc supplement * May benefit with proning * Encourage to ambulate side her room as many times as she can * PRN decongestant/expectorant * Titrate to come off supplemental O2 * DVT prophylaxis: Lovenox 40 mg subQ BID * Code status: full * LOS > 96 hrs for complete treatment of Veklury - Plan Plan:: COVID-19 Infection Viral Pneumonitis/Atypical Pneumonia Hypoxia, on 2L NC Elevated d-dimer, CTA negative for PE Transaminitis, improving Class I Obese * Remdesivir day 3/5 * Dexamethasone day 3/10 * Azithromycin day 10/12 and Rocephin 10/14 * O2 as needed; titrate to come off * RT/IS/Acapella * Continue zinc and vit d supplement * Airborne and contact isolation * Continue daily 81 mg ASA * Lovenox 40mg BID due to elevated D-Dimer * Encourage ambulation around room * Encourage proning * Monitor daily labs * Check D-dimer Q48H * Telemetry/continuous pulse oximeter * PT consultation * CM/SW Hyperglycemia without diagnosis of DM or Glucose Intolerance * Likely 2/2 steroid administration * Monitor blood glucose AM/PM * Check A1C 6.30-meets criteria for pre-diabetes * Monitor need for insulin Hypokalemia, resolved Hyponatremia, resolved * News Intern consult * Monitor labs Hypothyroidism Hypertension * Continue home Levothyroxine * Hold home HCTZ * TSH WNL * Monitor vital signs Q8H PCP: Dr. Mars Code status: Full Code DVT prophylaxis: Lovenox Social: Patient lives with in [place]. is admitted to [facility] unit for COVID-19 as well. She reports neither her nor her drive and they often get rides around town by anglic[employer] members. Disposition: Patient admitted for treatment of COVID-19, Hypoxia, and electrolyte abnormalities. LOS >96 hrs to complete treatment for COVID-19. Prognosis: Good
[2020-07-30] MEDS: Enoxaparin 40 MG/0.4 ML Syringe SUBCUT SCH ×2 (09:20→20:08)
[2020-07-30] MEDS: Cholecalciferol (Vitamin D3) 5,000 UNIT Cap PO SCH (09:20)
[2020-07-30] MEDS: Azithromycin 250 MG Tab PO SCH (09:20)
[2020-07-30] MEDS: Levothyroxine 88 MCG Tab PO SCH (09:20)
[2020-07-30] MEDS: Zinc Sulfate 220 MG Cap PO SCH (09:20)
[2020-07-30] MEDS: Aspirin 81 MG Tab.EC PO SCH (09:20)
[2020-07-30] MEDS: cefTRIAXone 2 GM in Sodium Chloride 0.9% 100 ML IV SCH (09:22)
[2020-07-30] MEDS: Codeine/guaiFENesin 10-100 MG/5 ML Syrup 5 ML Cup PO PRN ×3 (09:24→23:48)
[2020-07-30] MEDS ORDERED: Non-Formulary Medication 1 Each PO SCH ×2 (12:30)
[2020-07-30] MEDS ORDERED: guaiFENesin/Dextromethorphan 100-10 MG/5 ML Soln 5 ML Cup PO PRN (13:14)
[2020-07-30] MEDS: Dexamethasone 4 MG Tab PO SCH (20:08)
[2020-07-30] MEDS: REMDESIVIR 100 MG in Sodium Chloride 0.9% 100 ML IV SCH (21:02)
[2020-07-31] MEDS: Aspirin 81 MG Tab.EC PO SCH (09:18)
[2020-07-31] MEDS: Zinc Sulfate 220 MG Cap PO SCH (09:18)
[2020-07-31] MEDS: Codeine/guaiFENesin 10-100 MG/5 ML Syrup 5 ML Cup PO PRN (09:19)
[2020-07-31] MEDS: Enoxaparin 40 MG/0.4 ML Syringe SUBCUT SCH ×2 (09:19→20:16)
[2020-07-31] MEDS: Cholecalciferol (Vitamin D3) 5,000 UNIT Cap PO SCH (09:19)
[2020-07-31] MEDS: Levothyroxine 88 MCG Tab PO SCH (09:19)
[2020-07-31] MEDS: cefTRIAXone 2 GM in Sodium Chloride 0.9% 100 ML IV SCH (09:21)
--- NOTE | 2020-07-31 13:57 | PCM.PN ---
- General Info Date of Service: 07/31/20 Admission Dx/Problem (Free Text): Admission Diagnosis/Problem Admission Diagnosis/Problem Hypoxemia Subjective Update: No overnight or acute issues. She still has mild up. Had a shower this morning and was up and moving. She is still on 2L NC sating in the low 90s. No GI/ complaints. She is afebrile with WBC Of 12.88. CRP is down to 5.3. Functional Status: Reports: Pain Controlled, Tolerating Diet, Ambulating, Urinating. Denies: New Symptoms - Review of Systems General: Denies: Fever, Weakness, Chills Pulmonary: Reports: Cough. Denies: Shortness of Breath, Pleuritic Chest Pain, Wheezing Cardiovascular: Denies: Chest Pain Gastrointestinal: Denies: Abdominal Pain, Nausea, Vomiting Genitourinary: Denies: Frequency Musculoskeletal: Denies: Joint Pain Skin: Denies: Cyanosis, Diaphoresis, Bruising, Rash Neurological: Denies: Dizziness, Headache, Gait Disturbance Psychiatric: Denies: Depression, Anxiety, Agitation - Patient Data Vitals - Most Recent: Last Vital Signs Temp 36.1 C 07/31/20 06:50 Pulse 60 07/31/20 06:50 Resp 22 H 07/31/20 06:50 BP 131/69 07/31/20 06:50 Pulse Ox 93 L 07/31/20 06:50 Weight - Most Recent: 92.079 kg I&O - Last 24 Hours: Intake & Output 07/30/20 07/31/20 07/31/20 22:59 06:59 14:59 Intake Total 1600 300 300 Output Total 420 Balance 1600 -120 300 Lab Results Last 24 Hours: Laboratory Results - last 24 hr 07/30/20 07/31/20 07/31/20 Range/Units 23:58 06:02 06:02 WBC 12.88 H (3.98-10.04) K/mm3 RBC 4.56 (3.98-5.22) M/mm3 Hgb 13.3 (11.2-15.7) gm/dl Hct 42.3 (34.1-44.9) % MCV 92.8 (79.4-94.8) fl MCH 29.2 (25.6-32.2) pg MCHC 31.4 L (32.2-35.5) g/dl RDW Std Deviation 47.2 H (36.4-46.3) fL Plt Count 310 (182-369) K/mm3 MPV 10.9 (9.4-12.3) fl Neut % (Auto) 88.1 H (34.0-71.1) % Lymph % (Auto) 7.5 L (19.3-51.7) % Blair % (Auto) 3.3 L (4.7-12.5) % Eos % (Auto) 0 L (0.7-5.8) Baso % (Auto) 0.2 (0.1-1.2) % Neut # (Auto) 11.35 H (1.56-6.13) K/mm3 Lymph # (Auto) 0.96 L (1.18-3.74) K/mm3 Blair # (Auto) 0.43 H (0.24-0.36) K/mm3 Eos # (Auto) 0.00 L (0.04-0.36) K/mm3 Baso # (Auto) 0.03 (0.01-0.08) K/mm3 Manual Slide Review Abnormal smear D-Dimer, Quantitative 1.75 H (0.19-0.50) mg/L Sodium (136-145) mEq/L Potassium (3.5-5.1) mEq/L Chloride (98-107) mEq/L Carbon Dioxide (21-32) mEq/L Anion Gap (5-15) BUN (7-18) mg/dL Creatinine (0.55-1.02) mg/dL Est Cr Clr Drug Dosing mL/min Estimated GFR (MDRD) (>60) mL/min BUN/Creatinine Ratio (14-18) Glucose (83-115) mg/dL POC Glucose 120 H (83-110) mg/dL Calcium (8.5-10.1) mg/dL Magnesium (1.8-2.4) mg/dl Total Bilirubin (0.2-1.0) mg/dL AST (15-37) U/L ALT (14-59) U/L Alkaline Phosphatase (46-116) U/L C-Reactive Protein (<1.0) mg/dL Total Protein (6.4-8.2) g/dl Albumin (3.4-5.0) g/dl Globulin gm/dL Albumin/Globulin Ratio (1-2) 07/31/ Range/Units 06:02 WBC (3.98-10.04) K/mm3 RBC (3.98-5.22) M/mm3 Hgb (11.2-15.7) gm/dl Hct (34.1-44.9) % MCV (79.4-94.8) fl MCH (25.6-32.2) pg MCHC (32.2-35.5) g/dl RDW Std Deviation (36.4-46.3) fL Plt Count (182-369) K/mm3 MPV (9.4-12.3) fl Neut % (Auto) (34.0-71.1) % Lymph % (Auto) (19.3-51.7) % Blair % (Auto) (4.7-12.5) % Eos % (Auto) (0.7-5.8) Baso % (Auto) (0.1-1.2) % Neut # (Auto) (1.56-6.13) K/mm3 Lymph # (Auto) (1.18-3.74) K/mm3 Blair # (Auto) (0.24-0.36) K/mm3 Eos # (Auto) (0.04-0.36) K/mm3 Baso # (Auto) (0.01-0.08) K/mm3 Manual Slide Review D-Dimer, Quantitative (0.19-0.50) mg/L Sodium 143 (136-145) mEq/L Potassium 4.5 (3.5-5.1) mEq/L Chloride 106 (98-107) mEq/L Carbon Dioxide 30 (21-32) mEq/L Anion Gap 11.5 (5-15) BUN 23 H (7-18) mg/dL Creatinine 0.7 (0.55-1.02) mg/dL Est Cr Clr Drug Dosing 56.68 mL/min Estimated GFR (MDRD) > 60 (>60) mL/min BUN/Creatinine Ratio 32.9 H (14-18) Glucose 163 H (83-115) mg/dL POC Glucose (83-110) mg/dL Calcium 8.5 (8.5-10.1) mg/dL Magnesium 2.2 (1.8-2.4) mg/dl Total Bilirubin 0.2 (0.2-1.0) mg/dL AST 28 (15-37) U/L ALT 54 (14-59) U/L Alkaline Phosphatase 50 (46-116) U/L C-Reactive Protein 5.3 H* (<1.0) mg/dL Total Protein 6.1 L (6.4-8.2) g/dl Albumin 2.3 L (3.4-5.0) g/dl Globulin 3.8 gm/dL Albumin/Globulin Ratio 0.6 L (1-2) Sea Results Last 24 Hours: Microbiology 07/27/20 20:49 Aerobic Blood Culture - Preliminary Blood - Venous - Lab Draw NO GROWTH AFTER 3 DAYS Anaerobic Blood Culture - Preliminary NO GROWTH AFTER 3 DAYS 07/27/20 20:39 Aerobic Blood Culture - Preliminary Blood - Venous NO GROWTH AFTER 3 DAYS Anaerobic Blood Culture - Preliminary NO GROWTH AFTER 3 DAYS Med Orders - Current: Current Medications Acetaminophen (Tylenol) 650 mg PO Q4H PRN PRN Reason: Pain (Mild 1-3)/fever Albuterol (Proventil Neb Soln) 2.5 mg NEB Q2H PRN PRN Reason: Shortness Of Breath/wheezing Last Admin: 07/29/20 05:30 Dose: 2.5 mg Documented by: Albuterol/Ipratropium (Duoneb 3.0-0.5 Mg/3 Ml) 3 ml NEB Q4H PRN PRN Reason: Shortness Of Breath/wheezing Aspirin (Halfprin) 81 mg PO DAILY [facility] Last Admin: 07/31/20 09:18 Dose: 81 mg Documented by: Benzonatate (Tessalon Perles) 100 mg PO TID PRN PRN Reason: COUGH Cholecalciferol (Vitamin D3) 5,000 unit PO DAILY [facility] Last Admin: 07/31/20 09:19 Dose: 5,000 unit Documented by: Dexamethasone (Dexamethasone) 6 mg PO BEDTIME NAILA Stop: 08/05/20 21:01 Last Admin: 07/30/20 20:08 Dose: 6 mg Documented by: Enoxaparin Sodium (Lovenox) 40 mg SUBCUT BID [facility] Last Admin: 07/31/20 09:19 Dose: 40 mg Documented by: Guaifenesin/Codeine Phosphate (Robitussin Ac) 5 ml PO Q4H PRN PRN Reason: Cough Last Admin: 07/31/20 09:19 Dose: 5 ml Documented by: Guaifenesin/Phenylephrine HCl (Robitussin Dm) 10 ml PO Q4H PRN PRN Reason: Cough Remdesivir 100 mg/ Sodium (Chloride) 100 mls @ 100 mls/hr IV Q24H NAILA Stop: 07/31/20 22:59 Last Admin: 07/30/20 21:02 Dose: 100 mls/hr Documented by: Ceftriaxone Sodium 2 gm/ (Sodium Chloride) 100 mls @ 200 mls/hr IV Q24H NAILA Stop: 08/01/20 09:59 Last Admin: 07/31/20 09:21 Dose: 200 mls/hr Documented by: Levothyroxine Sodium (Synthroid) 88 mcg PO DAILY [facility] Last Admin: 07/31/20 09:19 Dose: 88 mcg Documented by: Ondansetron HCl (Zofran) 4 mg IV Q4H PRN PRN Reason: Nausea/Vomiting Sodium Chloride (Saline Flush) 10 ml FLUSH ONARRIVE [facility] Last Admin: 07/27/20 21:43 Dose: 10 ml Documented by: Zinc Sulfate (Zincate) 220 mg PO DAILY [facility] Last Admin: 07/31/20 09:18 Dose: 220 mg Documented by: Discontinued Medications Azithromycin (Zithromax) 500 mg PO DAILY [facility] Stop: 07/30/20 09:01 Last Admin: 07/30/20 09:20 Dose: 500 mg Documented by: Benzonatate (Tessalon Perles) 100 mg PO TID PRN PRN Reason: Cough Last Admin: 07/30/20 11:35 Dose: 100 mg Documented by: Dexamethasone (Decadron) 6 mg IVPUSH ONETIME STA Stop: 07/27/20 22:03 Last Admin: 07/27/20 22:14 Dose: 6 mg Documented by: Enoxaparin Sodium (Lovenox) 40 mg SUBCUT DAILY [facility] Last Admin: 07/28/20 08:33 Dose: 40 mg Documented by: Sodium Chloride (Normal Saline) 1,000 mls @ 100 mls/hr IV ASDIRECTED NAILA Stop: 07/29/20 00:03 Last Admin: 07/27/20 20:50 Dose: 100 mls/hr Documented by: Sodium Chloride (Normal Saline) 100 mls @ 60 mls/min IV ASDIRECTED [facility]IL[facility] Last Admin: 07/27/20 21:43 Dose: 60 mls/min Documented by: Remdesivir 200 mg/ Sodium (Chloride) 250 mls @ 250 mls/hr IV ONETIME ONE Stop: 07/27/20 22:45 Last Admin: 07/28/20 00:00 Dose: 250 mls/hr Documented by: Iopamidol (Isovue-370 (76%)) 100 ml IVPUSH ONETIME ONE Stop: 07/27/20 20:54 Last Admin: 07/27/20 21:43 Dose: 100 ml Documented by: Non-Formulary Medication (Nf Drug) 1 each PO DAILY [facility] Last Admin: 07/30/20 14:02 Dose: Not Given Documented by: Potassium Chloride (Klor-Con M20) 40 meq PO ONETIME ONE Stop: 07/27/20 22:47 Last Admin: 07/28/20 00:18 Dose: 40 meq Documented by: - Exam Quality Assessment: Supplemental Oxygen, DVT Prophylaxis, Skin Breakdown General: Alert, Oriented, Cooperative, No Acute Distress, Other (Obese) HEENT: Pupils Equal, Pupils Reactive, EOMI, Mucous Membr. Moist/[place]: Supple Lungs: Normal Respiratory Effort, Decreased Breath Sounds Cardiovascular: Regular Rate, Regular Rhythm GI/Abdominal Exam: Normal Bowel Sounds, Soft, Non-Tender, No Organomegaly, No Distention, No Abnormal Bruit, No Mass, Pelvis Stable, Other (Obese) (Female) Exam: Deferred Back Exam: Normal Inspection, Decreased Range of Motion Extremities: Normal Inspection, Normal Range of Motion, Non-Tender, No Pedal Edema, Normal Capillary Refill Peripheral Pulses: 2+: Dorsalis Pedis (L), Dorsalis Pedis (R) Skin: Warm, Dry, Intact Neurological: No New Focal Deficit, Normal Gait Psy/Mental Status: Alert, Normal Affect, Normal Mood Sepsis Event Note - Evaluation Sepsis Screening Result: No Definite Risk - Focused Exam Vital Signs: Vital Signs Temp Pulse Resp BP Pulse Ox Pulse Ox 07/31/20 06:50 36.1 C 60 22 H 131/69 93 L 07/31/20 06:18 94 L - Problem List Review Problem List Initiated/Reviewed/Updated: Yes - My Orders Last 24 Hours: My Active Orders 07/30/20 13:14 Dextromethorphan/guaiFENesin [Robitussin DM] 10 ml PO Q4H PRN 07/30/20 13:15 Benzonatate [Tessalon Perles] 100 mg PO TID PRN - Assessment Assessment:: Assessment - Day of admission 07/28/2020 (admitted overnight 07/27/2020): * 80 yo female who presents to ED with SOB, Fatigue, cough, and body aches * Denies fever, diarrhea, nausea/vomiting * hospitalized for COVID-19 after testing positive on 07/23/2020 * Oxygen saturations of 81% on room air in ED, 96% on 2L * 12-Lead EGK: NSR at 89 BPM with no signs of ischemia * CXR in ED: Bilateral hazy infiltrates, worse on right than on left * CTA in ED: Limited pulmonary arterial visualization, No evidence of central PE, Consider PAH, Diffuse pulmonary parenchymal abnormality Bilateral renal calculi * Labs: * WBC 9.32 * Hgb 14.0 * Plt 212 * D-dimer 2.59 * Sodium 133 * Potassium 3.3 * GFR >60 * Bilirubin 0.7 * AST 128, ALT 87, Alk phos 60 * Troponin 0.025 * Albumin 3.1 * Lactic acid 2.0 * Magnesium 2.0 * Pro-BNP 376 * ABG: pH 7.42, PCO2 37.6, PO2 55, HCO3 23.9, oxygen saturation 88.4 base excess 0.1, A-a gradient 48, on room air * TSH 0.897 * Influenza A and B - Negative * SARS-CoV-2 - positive * MRSA - negative * Admitted to [facility] for treatment of COVID-19, Hypokalemia, Hyponatremia, Hypoxia. 07/29/2020: * Remains on 2L oxygen (improved) * Continues to utilize acapella/IS * Denies any new complaints * Labs * D-dimer improved to 1.82 * WBC 10.49 (steroid?) * Sodium 138 * Potassium 4.5 * Glucose 160 * A1C 6.3 * AST 60, ALT 73, Alk Phos 51 * CRP 17.0 * Albumin 2.0 * Vitamin D 30.1 * Continue current treatment plan * Repots she feels better * Continued cough but non-productive 07/30/2020: * Continue current treatment * She remains on 2L oxygen * Rocephin 3/5 and Veklury 2/4 day of treatment * Dexamethasone 6 mg po 09/20 * Completed Azithromycin * IS and beside pulmonary exercise * Vitamin D and zinc supplement * May benefit with proning * Encourage to ambulate side her room as many times as she can * PRN decongestant/expectorant * Titrate to come off supplemental O2 * DVT prophylaxis: Lovenox 40 mg subQ BID * Code status: full * LOS > 96 hrs for complete treatment of Veklury 07/31/2020: * Continue current treatment * She remains on 2L oxygen * Rocephin 11/14 and Veklury 10/13 day of treatment * Dexamethasone 6 mg po 10/18 * Completed Azithromycin * Encourage to use IS/FV and beside pulmonary exercise * Continue Vitamin D and zinc supplement * May benefit with proning * Encourage to ambulate side her room as many times as she can * PRN decongestant/expectorant * Titrate to come off supplemental O2 * DVT prophylaxis: Lovenox 40 mg subQ BID * Code status: full * LOS > 96 hrs for complete treatment of Veklury and hopefully off supplemental O2 - Plan Plan:: COVID-19 Infection Viral Pneumonitis/Atypical Pneumonia Hypoxia, on 2L NC Elevated d-dimer, CTA negative for PE Transaminitis, improving Class I Obese * Remdesivir day 10/13 * Dexamethasone day 10/18 * Completed Azithromycin and Rocephin / * O2 as needed; titrate to come off * RT/IS/Acapella * Continue zinc and vit d supplement * Airborne and contact isolation * Continue daily 81 mg ASA * Lovenox 40mg BID due to elevated D-Dimer * Encourage ambulation around room * Encourage proning * Monitor daily labs * Check D-dimer Q48H * Telemetry/continuous pulse oximeter * PT consultation * CM/SW Hyperglycemia without diagnosis of DM or Glucose Intolerance * Likely 2/2 steroid administration * Monitor blood glucose AM/PM * Check A1C 6.30-meets criteria for pre-diabetes * Monitor need for insulin Hypokalemia, resolved Hyponatremia, resolved * [employer] consult * Monitor labs Hypothyroidism Hypertension * Continue home Levothyroxine * Hold home HCTZ * TSH WNL * Monitor vital signs Q8H PCP: Dr. Mars Code status: Full Code DVT prophylaxis: Lovenox Social: Patient lives with in [place]. is admitted to [facility] unit for COVID-19 as well. She reports neither her nor her drive and they often get rides around town by [employer] members. Disposition: Patient admitted for treatment of COVID-19, Hypoxia, and electrolyte abnormalities. LOS >96 hrs to complete treatment for COVID-19. Prognosis: Good
[2020-07-31] MEDS: Dexamethasone 4 MG Tab PO SCH (20:16)
[2020-07-31] MEDS: REMDESIVIR 100 MG in Sodium Chloride 0.9% 100 ML IV SCH (21:50)
[2020-08-01] MEDS: Benzonatate 100 MG Cap PO PRN ×2 (01:39→20:34)
[2020-08-01] MEDS: Codeine/guaiFENesin 10-100 MG/5 ML Syrup 5 ML Cup PO PRN ×2 (08:08→23:13)
[2020-08-01] MEDS: Cholecalciferol (Vitamin D3) 5,000 UNIT Cap PO SCH (08:09)
[2020-08-01] MEDS: Levothyroxine 88 MCG Tab PO SCH (08:09)
[2020-08-01] MEDS: Aspirin 81 MG Tab.EC PO SCH (08:09)
[2020-08-01] MEDS: Zinc Sulfate 220 MG Cap PO SCH (08:10)
[2020-08-01] MEDS: Enoxaparin 40 MG/0.4 ML Syringe SUBCUT SCH ×2 (08:10→20:33)
--- NOTE | 2020-08-01 08:12 | PCM.PN ---
- General Info Date of Service: 08/01/20 Admission Dx/Problem (Free Text): Admission Diagnosis/Problem Admission Diagnosis/Problem Hypoxemia Subjective Update: In to see Yessi. She is sitting up in the chair. She is on 3.5L of oxygen. She has no complaints and reports she feels ok - still has a cough. Labs today are improved. Will not draw labs tomorrow. Continue current treatment plan and attempt to wean oxygen. No other patient or nursing concerns. Functional Status: Reports: Pain Controlled, Tolerating Diet, Ambulating, Urinating, Other (Acapella ). Denies: Incentive Spirometry - Review of Systems General: Reports: Weakness. Denies: Fever, Fatigue, Malaise, Chills HEENT: Reports: No Symptoms. Denies: Headaches, Sore Throat Pulmonary: Reports: No Symptoms, Cough. Denies: Shortness of Breath, Sputum, Wheezing Cardiovascular: Reports: No Symptoms, Dyspnea on Exertion. Denies: Chest Pain, Palpitations, Edema Gastrointestinal: Reports: No Symptoms. Denies: Abdominal Pain, Constipation, Nausea, Vomiting Genitourinary: Reports: No Symptoms. Denies: Pain Musculoskeletal: Reports: No Symptoms Skin: Reports: No Symptoms. Denies: Cyanosis Neurological: Reports: No Symptoms, Difficulty Walking (not much for endurance ), Weakness. Denies: Confusion, Gait Disturbance Psychiatric: Reports: No Symptoms - Patient Data Vitals - Most Recent: Last Vital Signs Temp 97.2 F 08/01/20 05:06 Pulse 63 08/01/20 05:06 Resp 12 08/01/20 05:06 BP 139/62 08/01/20 05:06 Pulse Ox 96 08/01/20 05:06 Weight - Most Recent: 201 lb 3.2 oz I&O - Last 24 Hours: Intake & Output 07/31/20 08/01/20 08/01/20 22:59 06:59 14:59 Intake Total 1120 1100 Output Total 1200 Balance 1120 -100 Lab Results Last 24 Hours: Laboratory Results - last 24 hr 08/01/20 08/01/20 08/01/20 Range/Units 00:03 06:32 06:32 WBC 14.87 H (3.98-10.04) K/mm3 RBC 5.13 (3.98-5.22) M/mm3 Hgb 15.0 D (11.2-15.7) gm/dl Hct 46.7 H (34.1-44.9) % MCV 91.0 (79.4-94.8) fl MCH 29.2 (25.6-32.2) pg MCHC 32.1 L (32.2-35.5) g/dl RDW Std Deviation 45.5 (36.4-46.3) fL Plt Count 379 H (182-369) K/mm3 MPV 11.3 (9.4-12.3) fl Neut % (Auto) 85.1 H (34.0-71.1) % Lymph % (Auto) 8.5 L (19.3-51.7) % [place] % (Auto) 5.0 (4.7-12.5) % Eos % (Auto) 0 L (0.7-5.8) Baso % (Auto) 0.1 (0.1-1.2) % Neut # (Auto) 12.64 H (1.56-6.13) K/mm3 Lymph # (Auto) 1.26 (1.18-3.74) K/mm3 [place] # (Auto) 0.75 H (0.24-0.36) K/mm3 Eos # (Auto) 0.00 L (0.04-0.36) K/mm3 Baso # (Auto) 0.02 (0.01-0.08) K/mm3 Sodium 140 (136-145) mEq/L Potassium 4.1 (3.5-5.1) mEq/L Chloride 103 (98-107) mEq/L Carbon Dioxide 31 (21-32) mEq/L Anion Gap 10.1 (5-15) BUN 16 (7-18) mg/dL Creatinine 0.7 (0.55-1.02) mg/dL Est Cr Clr Drug Dosing 56.68 mL/min Estimated GFR (MDRD) > 60 (>60) mL/min BUN/Creatinine Ratio 22.9 H (14-18) Glucose 149 H (83-115) mg/dL POC Glucose 131 H (83-110) mg/dL Calcium 8.9 (8.5-10.1) mg/dL Magnesium 2.4 (1.8-2.4) mg/dl Total Bilirubin 0.4 (0.2-1.0) mg/dL AST 29 (15-37) U/L ALT 52 (14-59) U/L Alkaline Phosphatase 64 (46-116) U/L C-Reactive Protein 4.0 H* (<1.0) mg/dL Total Protein 7.1 (6.4-8.2) g/dl Albumin 2.7 L (3.4-5.0) g/dl Globulin 4.4 gm/dL Albumin/Globulin Ratio 0.6 L (1-2) Sea Results Last 24 Hours: Microbiology 07/27/20 20:49 Aerobic Blood Culture - Preliminary Blood - Venous - Lab Draw NO GROWTH AFTER 4 DAYS Anaerobic Blood Culture - Preliminary NO GROWTH AFTER 4 DAYS 07/27/20 20:39 Aerobic Blood Culture - Preliminary Blood - Venous NO GROWTH AFTER 4 DAYS Anaerobic Blood Culture - Preliminary NO GROWTH AFTER 4 DAYS Med Orders - Current: Current Medications Acetaminophen (Tylenol) 650 mg PO Q4H PRN PRN Reason: Pain (Mild 1-3)/fever Albuterol (Proventil Neb Soln) 2.5 mg NEB Q2H PRN PRN Reason: Shortness Of Breath/wheezing Last Admin: 07/29/20 05:30 Dose: 2.5 mg Documented by: Albuterol/Ipratropium (Duoneb 3.0-0.5 Mg/3 Ml) 3 ml NEB Q4H PRN PRN Reason: Shortness Of Breath/wheezing Aspirin (Halfprin) 81 mg PO DAILY [facility] Last Admin: 07/31/20 09:18 Dose: 81 mg Documented by: Benzonatate (Tessalon Perles) 100 mg PO TID PRN PRN Reason: COUGH Last Admin: 08/01/20 01:39 Dose: 100 mg Documented by: Cholecalciferol (Vitamin D3) 5,000 unit PO DAILY [facility] Last Admin: 07/31/20 09:19 Dose: 5,000 unit Documented by: Dexamethasone (Dexamethasone) 6 mg PO BEDTIME [facility] Stop: 08/05/20 21:01 Last Admin: 07/31/20 20:16 Dose: 6 mg Documented by: Enoxaparin Sodium (Lovenox) 40 mg SUBCUT BID [facility] Last Admin: 07/31/20 20:16 Dose: 40 mg Documented by: Guaifenesin/Codeine Phosphate (Robitussin Ac) 5 ml PO Q4H PRN PRN Reason: Cough Last Admin: 07/31/20 09:19 Dose: 5 ml Documented by: Guaifenesin/Phenylephrine HCl (Robitussin Dm) 10 ml PO Q4H PRN PRN Reason: Cough Ceftriaxone Sodium 2 gm/ (Sodium Chloride) 100 mls @ 200 mls/hr IV Q24H [facility]IL[facility] Stop: 08/01/20 09:59 Last Admin: 07/31/20 09:21 Dose: 200 mls/hr Documented by: Levothyroxine Sodium (Synthroid) 88 mcg PO DAILY [facility] Last Admin: 07/31/20 09:19 Dose: 88 mcg Documented by: Ondansetron HCl (Zofran) 4 mg IV Q4H PRN PRN Reason: Nausea/Vomiting Sodium Chloride (Saline Flush) 10 ml FLUSH ONARRIVE [facility] Last Admin: 07/27/20 21:43 Dose: 10 ml Documented by: Zinc Sulfate (Zincate) 220 mg PO DAILY [facility] Last Admin: 07/31/20 09:18 Dose: 220 mg Documented by: Discontinued Medications Azithromycin (Zithromax) 500 mg PO DAILY [facility] Stop: 07/30/20 09:01 Last Admin: 07/30/20 09:20 Dose: 500 mg Documented by: Benzonatate (Tessalon Perles) 100 mg PO TID PRN PRN Reason: Cough Last Admin: 07/30/20 11:35 Dose: 100 mg Documented by: Dexamethasone (Decadron) 6 mg IVPUSH ONETIME STA Stop: 07/27/20 22:03 Last Admin: 07/27/20 22:14 Dose: 6 mg Documented by: Enoxaparin Sodium (Lovenox) 40 mg SUBCUT DAILY [facility] Last Admin: 07/28/20 08:33 Dose: 40 mg Documented by: Sodium Chloride (Normal Saline) 1,000 mls @ 100 mls/hr IV ASDIRECTED [facility] Stop: 07/29/20 00:03 Last Admin: 07/27/20 20:50 Dose: 100 mls/hr Documented by: Sodium Chloride (Normal Saline) 100 mls @ 60 mls/min IV ASDIRECTED [facility] Last Admin: 07/27/20 21:43 Dose: 60 mls/min Documented by: Remdesivir 200 mg/ Sodium (Chloride) 250 mls @ 250 mls/hr IV ONETIME ONE Stop: 07/27/20 22:45 Last Admin: 07/28/20 00:00 Dose: 250 mls/hr Documented by: Remdesivir 100 mg/ Sodium (Chloride) 100 mls @ 100 mls/hr IV Q24H [facility] Stop: 07/31/20 22:59 Last Admin: 07/31/20 21:50 Dose: 100 mls/hr Documented by: Iopamidol (Isovue-370 (76%)) 100 ml IVPUSH ONETIME ONE Stop: 07/27/20 20:54 Last Admin: 07/27/20 21:43 Dose: 100 ml Documented by: Non-Formulary Medication (Nf Drug) 1 each PO DAILY [facility] Last Admin: 07/30/20 14:02 Dose: Not Given Documented by: Potassium Chloride (Klor-Con M20) 40 meq PO ONETIME ONE Stop: 07/27/20 22:47 Last Admin: 07/28/20 00:18 Dose: 40 meq Documented by: - Exam Quality Assessment: Supplemental Oxygen (3.5L ), DVT Prophylaxis General: Alert, Oriented, Cooperative, No Acute Distress HEENT: Pupils Equal, Pupils Reactive, Mucous Membr. Moist/[place] Neck: Supple, Trachea Midline Lungs: Normal Respiratory Effort, Decreased Breath Sounds Cardiovascular: Regular Rate, Regular Rhythm GI/Abdominal Exam: Normal Bowel Sounds, Soft, Non-Tender (Female) Exam: Deferred Back Exam: Normal Inspection, Full Range of Motion Extremities: Normal Inspection, Normal Range of Motion, Non-Tender, No Pedal Edema, Normal Capillary Refill Peripheral Pulses: 2+: Radial (L), Radial (R), Dorsalis Pedis (L), Dorsalis Pedis (R) Skin: Warm, Dry, Intact Neurological: No New Focal Deficit Psy/Mental Status: Alert Sepsis Event Note - Evaluation Sepsis Screening Result: No Definite Risk - Focused Exam Vital Signs: Vital Signs Temp Pulse Resp BP Pulse Ox 08/01/20 05:06 97.2 F 63 12 139/62 96 08/01/20 00:06 97.5 F 65 22 H 138/62 90 L 07/31/20 20:21 97.7 F 68 24 H 125/83 88 L - Problem List & Annotations (1) COVID-19 SNOMED Code(s): 859390475 Code(s): U07.1 - COVID-19 Status: Acute Priority: High Current Visit: Yes (2) Hypoxia SNOMED Code(s): 639965107 Code(s): R09.02 - HYPOXEMIA Status: Acute Priority: High Current Visit: Yes (3) Hypokalemia SNOMED Code(s): 37983763 Code(s): E87.6 - HYPOKALEMIA Status: Acute Priority: High Current Visit: Yes (4) Elevated d-dimer SNOMED Code(s): 228832820 Code(s): R79.89 - OTHER SPECIFIED ABNORMAL FINDINGS OF BLOOD CHEMISTRY Status: Acute Priority: High Current Visit: Yes (5) Hypothyroidism SNOMED Code(s): 48147185 Code(s): E03.9 - HYPOTHYROIDISM, UNSPECIFIED Status: Chronic Priority: Low Current Visit: No Qualifiers: Hypothyroidism type: unspecified Qualified Code(s): E03.9 - Hypothyroidism, unspecified (6) Hypertension SNOMED Code(s): 97216978 Code(s): I10 - ESSENTIAL (PRIMARY) HYPERTENSION Status: Chronic Priority: Medium Current Visit: No Qualifiers: Hypertension type: unspecified Qualified Code(s): I10 - Essential (primary) hypertension (7) Hyponatremia SNOMED Code(s): 22666087 Code(s): E87.1 - HYPO-OSMOLALITY AND HYPONATREMIA Status: Acute Current Visit: Yes (8) Transaminitis SNOMED Code(s): 149214836, 162151259 Code(s): R74.01 - ELEVATION OF LEVELS OF LIVER TRANSAMINASE LEVELS Status: Acute Current Visit: Yes (9) Obesity (BMI 30.0-34.9) SNOMED Code(s): 410782075592625 Code(s): E66.9 - OBESITY, UNSPECIFIED Status: Chronic Priority: Medium Current Visit: Yes (10) Hyperglycemia SNOMED Code(s): 91416048 Code(s): R73.9 - HYPERGLYCEMIA, UNSPECIFIED Status: Acute Priority: High Current Visit: Yes - Problem List Review Problem List Initiated/Reviewed/Updated: Yes - My Orders Last 24 Hours: My Active Orders 08/01/20 06:32 CBC WITH AUTO DIFF [HEME] AM 08/02/20 05:11 DD [D-DIMER QUANTITATIVE] [COAG] Q48H - Assessment Assessment:: Assessment - Day of admission 07/28/2020 (admitted overnight 07/27/2020): * 80 yo female who presents to ED with SOB, Fatigue, cough, and body aches * Denies fever, diarrhea, nausea/vomiting * hospitalized for COVID-19 after testing positive on 07/23/2020 * Oxygen saturations of 81% on room air in ED, 96% on 2L * 12-Lead EGK: NSR at 89 BPM with no signs of ischemia * CXR in ED: Bilateral hazy infiltrates, worse on right than on left * CTA in ED: Limited pulmonary arterial visualization, No evidence of central PE, Consider PAH, Diffuse pulmonary parenchymal abnormality Bilateral renal calculi * Labs: * WBC 9.32 * Hgb 14.0 * Plt 212 * D-dimer 2.59 * Sodium 133 * Potassium 3.3 * GFR >60 * Bilirubin 0.7 * AST 128, ALT 87, Alk phos 60 * Troponin 0.025 * Albumin 3.1 * Lactic acid 2.0 * Magnesium 2.0 * Pro-BNP 376 * ABG: pH 7.42, PCO2 37.6, PO2 55, HCO3 23.9, oxygen saturation 88.4 base excess 0.1, A-a gradient 48, on room air * TSH 0.897 * Influenza A and B - Negative * SARS-CoV-2 - positive * MRSA - negative * Admitted to [facility] for treatment of COVID-19, Hypokalemia, Hyponatremia, Hypoxia. 07/29/2020: * Remains on 2L oxygen (improved) * Continues to utilize acapella/IS * Denies any new complaints * Labs * D-dimer improved to 1.82 * WBC 10.49 (steroid?) * Sodium 138 * Potassium 4.5 * Glucose 160 * A1C 6.3 * AST 60, ALT 73, Alk Phos 51 * CRP 17.0 * Albumin 2.0 * Vitamin D 30.1 * Continue current treatment plan * Repots she feels better * Continued cough but non-productive 07/30/2020: * Continue current treatment * She remains on 2L oxygen * Rocephin 3/ and Veklury 2/4 day of treatment * Dexamethasone 6 mg po 09/20 * Completed Azithromycin * IS and beside pulmonary exercise * Vitamin D and zinc supplement * May benefit with proning * Encourage to ambulate side her room as many times as she can * PRN decongestant/expectorant * Titrate to come off supplemental O2 * DVT prophylaxis: Lovenox 40 mg subQ BID * Code status: full * LOS > 96 hrs for complete treatment of Veklury 07/31/2020: * Continue current treatment * She remains on 2L oxygen * Rocephin / and Veklury 3/ day of treatment * Dexamethasone 6 mg po 10/18 * Completed Azithromycin * Encourage to use IS/FV and beside pulmonary exercise * Continue Vitamin D and zinc supplement * May benefit with proning * Encourage to ambulate side her room as many times as she can * PRN decongestant/expectorant * Titrate to come off supplemental O2 * DVT prophylaxis: Lovenox 40 mg subQ BID * Code status: full * LOS > 96 hrs for complete treatment of Veklury and hopefully off supplemental O2 08/01/2020 * Continue current treatment * Continues to utilize IS/Acapella * Reports she has been up ambulating but has noticed her endurance is less * Reports she has been trying to prone * On 3.4L o2 - working on weaning * Reports she continues to feel better but has cough * Labs: * WBC 14.87 * Hgb 15.0 * Plt 339,000 * GFR >60 * CRP 4.0 * Albumin 2.7 - Plan Plan:: COVID-19 Infection Viral Pneumonitis/Atypical Pneumonia Hypoxia, on 2L NC Elevated d-dimer, CTA negative for PE Transaminitis, improving Class I Obese * Completed remdesivir, azithromycin, and Rocephin * Dexamethasone day 12/19 * O2 as needed; titrate when able * RT/IS/Acapella * Continue zinc and vit d supplement * Airborne and contact isolation * Continue daily 81 mg ASA * Lovenox 40mg BID due to elevated D-Dimer * Encourage ambulation around room * Encourage proning * Monitor daily labs * Check D-dimer Q48H * Telemetry/continuous pulse oximeter * PT consultation * CM/SW Hyperglycemia without diagnosis of DM or Glucose Intolerance * Likely 2/2 steroid administration * Monitor blood glucose AM/PM * Check A1C 6.30-meets criteria for pre-diabetes * Monitor need for insulin Hypokalemia, resolved Hyponatremia, resolved * Dye Machine Tender consult * Monitor labs Hypothyroidism Hypertension * Continue home Levothyroxine * Hold home HCTZ * TSH WNL * Monitor vital signs Q8H PCP: Dr. Mars Code status: Full Code DVT prophylaxis: Lovenox Social: Patient lives with in [place]. is admitted to [facility] unit for COVID-19 as well. She reports neither her nor her drive and they often get rides around town by religion members. Disposition: Patient admitted for treatment of COVID-19, Hypoxia, and electrolyte abnormalities. LOS >96 hrs to complete treatment for COVID-19. Prognosis: Good
[2020-08-01] MEDS: cefTRIAXone 2 GM in Sodium Chloride 0.9% 100 ML IV SCH (08:57)
[2020-08-01] MEDS: Dexamethasone 4 MG Tab PO SCH (20:34)
[2020-08-01] MEDS: Acetaminophen 325 MG Tab PO PRN (23:14)
--- NOTE | 2020-08-02 08:14 | PCM.PN ---
- General Info Date of Service: 08/02/20 Admission Dx/Problem (Free Text): Admission Diagnosis/Problem Admission Diagnosis/Problem Hypoxemia Subjective Update: In to see Yessi. She is sitting up in the chair on high flow oxygen. She has been maintaining saturations of 91-94% on this. She has been proning as best she can but she reports significant shoulder pain when she lays prone for too long. We discussed her doing as much as she can. She has been utilizing her IS and acapella, but reports it is quite difficult on high flow oxygen. Otherwise no pain or concerns. We discussed senior care plan and discharge disposition. She is willing to look into [place] for assisted living after discharge. SW involved. Continue to work on weaning. Functional Status: Reports: Pain Controlled, Tolerating Diet, Ambulating, Urinating, Incentive Spirometry, Other (accapella ). Denies: New Symptoms - Review of Systems General: Reports: No Symptoms, Weakness, Fatigue. Denies: Fever, Malaise, Chills HEENT: Reports: No Symptoms. Denies: Headaches, Sore Throat Pulmonary: Reports: Shortness of Breath, Cough. Denies: Sputum, Wheezing Cardiovascular: Reports: No Symptoms, Dyspnea on Exertion. Denies: Chest Pain, Palpitations, Edema Gastrointestinal: Reports: No Symptoms. Denies: Abdominal Pain, Constipation, Diarrhea, Nausea, Vomiting Genitourinary: Reports: No Symptoms. Denies: Pain Musculoskeletal: Reports: No Symptoms Skin: Reports: No Symptoms. Denies: Cyanosis Neurological: Reports: No Symptoms. Denies: Confusion, Difficulty Walking, Gait Disturbance Psychiatric: Reports: No Symptoms - Patient Data Vitals - Most Recent: Last Vital Signs Temp 97.3 F 08/01/20 19:55 Pulse 74 08/01/20 19:55 Resp 24 H 08/01/20 19:55 BP 118/69 08/01/20 19:55 Pulse Ox 95 08/02/20 06:08 Weight - Most Recent: 198 lb I&O - Last 24 Hours: Intake & Output 08/01/20 08/02/20 08/02/20 22:59 06:59 14:59 Intake Total 1260 800 Output Total 550 1000 Balance 710 -200 Lab Results Last 24 Hours: Laboratory Results - last 24 hr 08/01/20 08/02/20 Range/Units 06:32 01:44 Manual Slide Review Abnormal smear POC Glucose 127 H (83-110) mg/dL Sea Results Last 24 Hours: Microbiology 07/27/20 20:49 Aerobic Blood Culture - Preliminary Blood - Venous - Lab Draw NO GROWTH AFTER 5 DAYS Anaerobic Blood Culture - Preliminary NO GROWTH AFTER 5 DAYS 07/27/20 20:39 Aerobic Blood Culture - Preliminary Blood - Venous NO GROWTH AFTER 5 DAYS Anaerobic Blood Culture - Preliminary NO GROWTH AFTER 5 DAYS Med Orders - Current: Current Medications Acetaminophen (Tylenol) 650 mg PO Q4H PRN PRN Reason: Pain (Mild 1-3)/fever Last Admin: 08/01/20 23:14 Dose: 650 mg Documented by: Albuterol (Proventil Neb Soln) 2.5 mg NEB Q2H PRN PRN Reason: Shortness Of Breath/wheezing Last Admin: 07/29/20 05:30 Dose: 2.5 mg Documented by: Albuterol/Ipratropium (Duoneb 3.0-0.5 Mg/3 Ml) 3 ml NEB Q4H PRN PRN Reason: Shortness Of Breath/wheezing Aspirin (Halfprin) 81 mg PO DAILY [facility] Last Admin: 08/01/20 08:09 Dose: 81 mg Documented by: Benzonatate (Tessalon Perles) 100 mg PO TID PRN PRN Reason: COUGH Last Admin: 08/01/20 20:34 Dose: 100 mg Documented by: Cholecalciferol (Vitamin D3) 5,000 unit PO DAILY [facility] Last Admin: 08/01/20 08:09 Dose: 5,000 unit Documented by: Dexamethasone (Dexamethasone) 6 mg PO BEDTIME [facility] Stop: 08/05/20 21:01 Last Admin: 08/01/20 20:34 Dose: 6 mg Documented by: Enoxaparin Sodium (Lovenox) 40 mg SUBCUT BID [facility] Last Admin: 08/01/20 20:33 Dose: 40 mg Documented by: Guaifenesin/Codeine Phosphate (Robitussin Ac) 5 ml PO Q4H PRN PRN Reason: Cough Last Admin: 08/01/20 23:13 Dose: 5 ml Documented by: Guaifenesin/Phenylephrine HCl (Robitussin Dm) 10 ml PO Q4H PRN PRN Reason: Cough Levothyroxine Sodium (Synthroid) 88 mcg PO DAILY [facility] Last Admin: 08/01/20 08:09 Dose: 88 mcg Documented by: Ondansetron HCl (Zofran) 4 mg IV Q4H PRN PRN Reason: Nausea/Vomiting Sodium Chloride (Saline Flush) 10 ml FLUSH ONARRIVE [facility] Last Admin: 07/27/20 21:43 Dose: 10 ml Documented by: Zinc Sulfate (Zincate) 220 mg PO DAILY [facility] Last Admin: 08/01/20 08:10 Dose: 220 mg Documented by: Discontinued Medications Azithromycin (Zithromax) 500 mg PO DAILY [facility] Stop: 07/30/20 09:01 Last Admin: 07/30/20 09:20 Dose: 500 mg Documented by: Benzonatate (Tessalon Perles) 100 mg PO TID PRN PRN Reason: Cough Last Admin: 07/30/20 11:35 Dose: 100 mg Documented by: Dexamethasone (Decadron) 6 mg IVPUSH ONETIME [facility] Stop: 07/27/20 22:03 Last Admin: 07/27/20 22:14 Dose: 6 mg Documented by: Enoxaparin Sodium (Lovenox) 40 mg SUBCUT DAILY [facility] Last Admin: 07/28/20 08:33 Dose: 40 mg Documented by: Sodium Chloride (Normal Saline) 1,000 mls @ 100 mls/hr IV ASDIRECTED [facility] Stop: 07/29/20 00:03 Last Admin: 07/27/20 20:50 Dose: 100 mls/hr Documented by: Sodium Chloride (Normal Saline) 100 mls @ 60 mls/min IV ASDIRECTED [facility] Last Admin: 07/27/20 21:43 Dose: 60 mls/min Documented by: Remdesivir 200 mg/ Sodium (Chloride) 250 mls @ 250 mls/hr IV ONETIME ONE Stop: 07/27/20 22:45 Last Admin: 07/28/20 00:00 Dose: 250 mls/hr Documented by: Remdesivir 100 mg/ Sodium (Chloride) 100 mls @ 100 mls/hr IV Q24H [facility] Stop: 07/31/20 22:59 Last Admin: 07/31/20 21:50 Dose: 100 mls/hr Documented by: Ceftriaxone Sodium 2 gm/ (Sodium Chloride) 100 mls @ 200 mls/hr IV Q24H [facility] Stop: 08/01/20 09:59 Last Admin: 08/01/20 08:57 Dose: 200 mls/hr Documented by: Iopamidol (Isovue-370 (76%)) 100 ml IVPUSH ONETIME ONE Stop: 07/27/20 20:54 Last Admin: 07/27/20 21:43 Dose: 100 ml Documented by: Non-Formulary Medication (Nf Drug) 1 each PO DAILY [facility] Last Admin: 07/30/20 14:02 Dose: Not Given Documented by: Potassium Chloride (Klor-Con M20) 40 meq PO ONETIME ONE Stop: 07/27/20 22:47 Last Admin: 07/28/20 00:18 Dose: 40 meq Documented by: - Exam Quality Assessment: Supplemental Oxygen (High flow), DVT Prophylaxis. No: Urine Catheter General: Alert, Oriented, Cooperative, No Acute Distress HEENT: Pupils Equal, Pupils Reactive, Mucous Membr. Moist/[place] Neck: Supple, Trachea Midline Lungs: Normal Respiratory Effort, Decreased Breath Sounds, Rhonchi Cardiovascular: Regular Rate, Regular Rhythm GI/Abdominal Exam: Normal Bowel Sounds, Soft, Non-Tender, No Distention (Female) Exam: Deferred Back Exam: Normal Inspection, Full Range of Motion Extremities: Normal Inspection, Normal Range of Motion, Non-Tender, No Pedal Edema, Normal Capillary Refill Skin: Warm, Dry, Intact Neurological: No New Focal Deficit Psy/Mental Status: Alert Sepsis Event Note - Evaluation Sepsis Screening Result: Sepsis Risk - Focused Exam Vital Signs: Vital Signs Pulse Ox 08/02/20 06:08 95 08/01/20 20:57 88 L - Problem List & Annotations (1) COVID-19 SNOMED Code(s): 497004616 Code(s): U07.1 - COVID-19 Status: Acute Priority: High Current Visit: Yes (2) Hypoxia SNOMED Code(s): 197783534 Code(s): R09.02 - HYPOXEMIA Status: Acute Priority: High Current Visit: Yes (3) Hypokalemia SNOMED Code(s): 21438288 Code(s): E87.6 - HYPOKALEMIA Status: Acute Priority: High Current Visit: Yes (4) Elevated d-dimer SNOMED Code(s): 046316668 Code(s): R79.89 - OTHER SPECIFIED ABNORMAL FINDINGS OF BLOOD CHEMISTRY Status: Acute Priority: High Current Visit: Yes (5) Hypothyroidism SNOMED Code(s): 89779817 Code(s): E03.9 - HYPOTHYROIDISM, UNSPECIFIED Status: Chronic Priority: Low Current Visit: No Qualifiers: Hypothyroidism type: unspecified Qualified Code(s): E03.9 - Hypothyroidism, unspecified (6) Hypertension SNOMED Code(s): 16557675 Code(s): I10 - ESSENTIAL (PRIMARY) HYPERTENSION Status: Chronic Priority: Medium Current Visit: No Qualifiers: Hypertension type: unspecified Qualified Code(s): I10 - Essential (primary) hypertension (7) Hyponatremia SNOMED Code(s): 77610432 Code(s): E87.1 - HYPO-OSMOLALITY AND HYPONATREMIA Status: Acute Current Visit: Yes (8) Transaminitis SNOMED Code(s): 411602019, 349688296 Code(s): R74.01 - ELEVATION OF LEVELS OF LIVER TRANSAMINASE LEVELS Status: Acute Current Visit: Yes (9) Obesity (BMI 30.0-34.9) SNOMED Code(s): 588912793668849 Code(s): E66.9 - OBESITY, UNSPECIFIED Status: Chronic Priority: Medium Current Visit: Yes (10) Hyperglycemia SNOMED Code(s): 22841346 Code(s): R73.9 - HYPERGLYCEMIA, UNSPECIFIED Status: Acute Priority: High Current Visit: Yes - Problem List Review Problem List Initiated/Reviewed/Updated: Yes - Assessment Assessment:: Assessment - Day of admission 07/28/2020 (admitted overnight 07/27/2020): * 80 yo female who presents to ED with SOB, Fatigue, cough, and body aches * Denies fever, diarrhea, nausea/vomiting * hospitalized for COVID-19 after testing positive on 07/23/2020 * Oxygen saturations of 81% on room air in ED, 96% on 2L * 12-Lead EGK: NSR at 89 BPM with no signs of ischemia * CXR in ED: Bilateral hazy infiltrates, worse on right than on left * CTA in ED: Limited pulmonary arterial visualization, No evidence of central PE, Consider PAH, Diffuse pulmonary parenchymal abnormality Bilateral renal calculi * Labs: * WBC 9.32 * Hgb 14.0 * Plt 212 * D-dimer 2.59 * Sodium 133 * Potassium 3.3 * GFR >60 * Bilirubin 0.7 * AST 128, ALT 87, Alk phos 60 * Troponin 0.025 * Albumin 3.1 * Lactic acid 2.0 * Magnesium 2.0 * Pro-BNP 376 * ABG: pH 7.42, PCO2 37.6, PO2 55, HCO3 23.9, oxygen saturation 88.4 base excess 0.1, A-a gradient 48, on room air * TSH 0.897 * Influenza A and B - Negative * SARS-CoV-2 - positive * MRSA - negative * Admitted to [facility] for treatment of COVID-19, Hypokalemia, Hyponatremia, Hypoxia. 07/29/2020: * Remains on 2L oxygen (improved) * Continues to utilize acapella/IS * Denies any new complaints * Labs * D-dimer improved to 1.82 * WBC 10.49 (steroid?) * Sodium 138 * Potassium 4.5 * Glucose 160 * A1C 6.3 * AST 60, ALT 73, Alk Phos 51 * CRP 17.0 * Albumin 2.0 * Vitamin D 30.1 * Continue current treatment plan * Repots she feels better * Continued cough but non-productive 07/30/2020: * Continue current treatment * She remains on 2L oxygen * Rocephin 3/5 and Veklury 2/4 day of treatment * Dexamethasone 6 mg po 09/20 * Completed Azithromycin * IS and beside pulmonary exercise * Vitamin D and zinc supplement * May benefit with proning * Encourage to ambulate side her room as many times as she can * PRN decongestant/expectorant * Titrate to come off supplemental O2 * DVT prophylaxis: Lovenox 40 mg subQ BID * Code status: full * LOS > 96 hrs for complete treatment of Veklury 07/31/2020: * Continue current treatment * She remains on 2L oxygen * Rocephin 4/5 and Veklury 3/4 day of treatment * Dexamethasone 6 mg po 10/18 * Completed Azithromycin * Encourage to use IS/FV and beside pulmonary exercise * Continue Vitamin D and zinc supplement * May benefit with proning * Encourage to ambulate side her room as many times as she can * PRN decongestant/expectorant * Titrate to come off supplemental O2 * DVT prophylaxis: Lovenox 40 mg subQ BID * Code status: full * LOS > 96 hrs for complete treatment of Veklury and hopefully off supplemental O2 08/01/2020 * Continue current treatment * Continues to utilize IS/Acapella * Reports she has been up ambulating but has noticed her endurance is less * Reports she has been trying to prone * On 3.4L o2 - working on weaning * Reports she continues to feel better but has cough * Labs: * WBC 14.87 * Hgb 15.0 * Plt 339,000 * GFR >60 * CRP 4.0 * Albumin 2.7 08/02/2020 * Requiring high flow today - 55L FiO2 of 60 * Continues to utilize IS/Acapella * Coughing frequently * Labs: * WBC 12.45 * Hgb 14.1 * Plt 370 * GFR >60 * D. Dimer 1.29 * CRP 4.2 * Albumin 2.4 * Blood glucose levels have been stable * Continue dexamethasone - day 01/18 * SW working on placement - patient in agreement to look into [place] [facility] at discharge - Plan Plan:: COVID-19 Infection Viral Pneumonitis/Atypical Pneumonia Hypoxia, on 2L NC Elevated d-dimer, CTA negative for PE Transaminitis, improving Class I Obese * Completed remdesivir, azithromycin, and Rocephin * Dexamethasone day 02/18 * O2 as needed; titrate when able * RT/IS/Acapella * Continue zinc and vit d supplement * Airborne and contact isolation * Continue daily 81 mg ASA * Lovenox 40mg BID due to elevated D-Dimer * Encourage ambulation around room * Encourage proning * Monitor daily labs * Check D-dimer Q48H * Telemetry/continuous pulse oximeter * PT consultation * /SW Hyperglycemia without diagnosis of DM or Glucose Intolerance * Likely 2/2 steroid administration * Monitor blood glucose AM/PM * Check A1C 6.30-meets criteria for pre-diabetes * Monitor need for insulin Hypokalemia, resolved Hyponatremia, resolved * 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 Mars Code status: Full Code DVT prophylaxis: Lovenox Social: Patient lives with in [place]. is admitted to [facility] unit for COVID-19 as well. She reports neither her nor her drive and they often get rides around town by catholic members. Disposition: Patient admitted for treatment of COVID-19, Hypoxia, and electrolyte abnormalities. LOS >96 hrs to complete treatment for COVID-19. Prognosis: Good
[2020-08-02] MEDS: Aspirin 81 MG Tab.EC PO SCH (08:47)
[2020-08-02] MEDS: Zinc Sulfate 220 MG Cap PO SCH (08:47)
[2020-08-02] MEDS: Cholecalciferol (Vitamin D3) 5,000 UNIT Cap PO SCH (08:47)
[2020-08-02] MEDS: Enoxaparin 40 MG/0.4 ML Syringe SUBCUT SCH ×2 (08:48→21:13)
[2020-08-02] MEDS: Levothyroxine 88 MCG Tab PO SCH (08:48)
[2020-08-02] MEDS: Codeine/guaiFENesin 10-100 MG/5 ML Syrup 5 ML Cup PO PRN (21:14)
[2020-08-02] MEDS: Dexamethasone 4 MG Tab PO SCH (21:14)
[2020-08-02] MEDS: Acetaminophen 325 MG Tab PO PRN (21:14)
--- NOTE | 2020-08-03 07:20 | PCM.PN ---
- General Info Date of Service: 08/03/20 Admission Dx/Problem (Free Text): Admission Diagnosis/Problem Admission Diagnosis/Problem Hypoxemia Subjective Update: In to see Yessi. She remains very concerned that we are not happy with her effort in proning. We discussed this in detail and it was communicated to her on several instances that she needs to do what she can and not worry about going for the full hour of proning. She has reported frequent belching and we d iscussed this is likely from her swallowing air from the high flow. We were able to turn down the high flow today to 40L with FiO2 of 40. Continue current treatment plan. Functional Status: Reports: Pain Controlled, Tolerating Diet, Ambulating, Urinating, Incentive Spirometry, Other (acapella ). Denies: New Symptoms - Review of Systems General: Reports: No Symptoms, Weakness, Fatigue. Denies: Fever, Malaise, Chills HEENT: Reports: No Symptoms. Denies: Headaches, Sore Throat Pulmonary: Reports: Shortness of Breath, Cough. Denies: Sputum, Wheezing Cardiovascular: Reports: Dyspnea on Exertion. Denies: Chest Pain, Palpitations, Edema Gastrointestinal: Reports: Other (Frequent belching). Denies: Abdominal Pain, Constipation, Diarrhea, Nausea, Vomiting Genitourinary: Reports: No Symptoms. Denies: Pain Musculoskeletal: Reports: No Symptoms Skin: Reports: No Symptoms. Denies: Cyanosis Neurological: Reports: No Symptoms. Denies: Confusion, Difficulty Walking, Gait Disturbance Psychiatric: Reports: No Symptoms - Patient Data Vitals - Most Recent: Last Vital Signs Temp 96.4 F L 08/03/20 06:28 Pulse 89 08/03/20 06:35 Resp 16 08/03/20 06:28 BP 129/82 08/03/20 06:28 Pulse Ox 93 L 08/03/20 06:32 Weight - Most Recent: 196 lb 9.6 oz I&O - Last 24 Hours: Intake & Output 08/02/20 08/03/20 08/03/20 22:59 06:59 14:59 Intake Total 1150 800 Output Total 500 Balance 650 800 Lab Results Last 24 Hours: Laboratory Results - last 24 hr 08/02/20 08/02/20 08/02/20 Range/Units 11:30 11:30 11:30 WBC 12.45 H (3.98-10.04) K/mm3 RBC 4.84 (3.98-5.22) M/mm3 Hgb 14.1 (11.2-15.7) gm/dl Hct 43.5 (34.1-44.9) % MCV 89.9 (79.4-94.8) fl MCH 29.1 (25.6-32.2) pg MCHC 32.4 (32.2-35.5) g/dl RDW Std Deviation 45.0 (36.4-46.3) fL Plt Count 370 H (182-369) K/mm3 MPV 10.4 (9.4-12.3) fl Neut % (Auto) 88.7 H (34.0-71.1) % Lymph % (Auto) 3.6 L (19.3-51.7) % Edmunds % (Auto) 5.9 (4.7-12.5) % Eos % (Auto) 0 L (0.7-5.8) Baso % (Auto) 0.2 (0.1-1.2) % Neut # (Auto) 11.05 H (1.56-6.13) K/mm3 Lymph # (Auto) 0.45 L (1.18-3.74) K/mm3 Edmunds # (Auto) 0.73 H (0.24-0.36) K/mm3 Eos # (Auto) 0.00 L (0.04-0.36) K/mm3 Baso # (Auto) 0.02 (0.01-0.08) K/mm3 Manual Slide Review Abnormal smear D-Dimer, Quantitative 1.29 H (0.19-0.50) mg/L Sodium 136 (136-145) mEq/L Potassium 4.1 (3.5-5.1) mEq/L Chloride 101 (98-107) mEq/L Carbon Dioxide 31 (21-32) mEq/L Anion Gap 8.1 (5-15) BUN 16 (7-18) mg/dL Creatinine 0.7 (0.55-1.02) mg/dL Est Cr Clr Drug Dosing 56.68 mL/min Estimated GFR (MDRD) > 60 (>60) mL/min BUN/Creatinine Ratio 22.9 H (14-18) Glucose 159 H (83-115) mg/dL POC Glucose (83-110) mg/dL Calcium 8.7 (8.5-10.1) mg/dL Phosphorus 3.3 (2.6-4.7) mg/dL Magnesium 2.3 (1.8-2.4) mg/dl Total Bilirubin 0.4 (0.2-1.0) mg/dL AST 25 (15-37) U/L ALT 47 (14-59) U/L Alkaline Phosphatase 60 (46-116) U/L C-Reactive Protein 4.2 H* (<1.0) mg/dL Total Protein 6.4 (6.4-8.2) g/dl Albumin 2.4 L (3.4-5.0) g/dl Globulin 4.0 gm/dL Albumin/Globulin Ratio 0.6 L (1-2) 08/02/20 08/03/20 Range/Units 21:58 06:31 WBC (3.98-10.04) K/mm3 RBC (3.98-5.22) M/mm3 Hgb (11.2-15.7) gm/dl Hct (34.1-44.9) % MCV (79.4-94.8) fl MCH (25.6-32.2) pg MCHC (32.2-35.5) g/dl RDW Std Deviation (36.4-46.3) fL Plt Count (182-369) K/mm3 MPV (9.4-12.3) fl Neut % (Auto) (34.0-71.1) % Lymph % (Auto) (19.3-51.7) % Edmunds % (Auto) (4.7-12.5) % Eos % (Auto) (0.7-5.8) Baso % (Auto) (0.1-1.2) % Neut # (Auto) (1.56-6.13) K/mm3 Lymph # (Auto) (1.18-3.74) K/mm3 Edmunds # (Auto) (0.24-0.36) K/mm3 Eos # (Auto) (0.04-0.36) K/mm3 Baso # (Auto) (0.01-0.08) K/mm3 Manual Slide Review D-Dimer, Quantitative (0.19-0.50) mg/L Sodium (136-145) mEq/L Potassium (3.5-5.1) mEq/L Chloride (98-107) mEq/L Carbon Dioxide (21-32) mEq/L Anion Gap (5-15) BUN (7-18) mg/dL Creatinine (0.55-1.02) mg/dL Est Cr Clr Drug Dosing mL/min Estimated GFR (MDRD) (>60) mL/min BUN/Creatinine Ratio (14-18) Glucose (83-115) mg/dL POC Glucose 114 H 140 H (83-110) mg/dL Calcium (8.5-10.1) mg/dL Phosphorus (2.6-4.7) mg/dL Magnesium (1.8-2.4) mg/dl Total Bilirubin (0.2-1.0) mg/dL AST (15-37) U/L ALT (14-59) U/L Alkaline Phosphatase (46-116) U/L C-Reactive Protein (<1.0) mg/dL Total Protein (6.4-8.2) g/dl Albumin (3.4-5.0) g/dl Globulin gm/dL Albumin/Globulin Ratio (1-2) Sea Results Last 24 Hours: Microbiology 07/27/20 20:49 Aerobic Blood Culture - Preliminary Blood - Venous - Lab Draw NO GROWTH AFTER 6 DAYS Anaerobic Blood Culture - Preliminary NO GROWTH AFTER 6 DAYS 07/27/20 20:39 Aerobic Blood Culture - Preliminary Blood - Venous NO GROWTH AFTER 6 DAYS Anaerobic Blood Culture - Preliminary NO GROWTH AFTER 6 DAYS Med Orders - Current: Current Medications Acetaminophen (Tylenol) 650 mg PO Q4H PRN PRN Reason: Pain (Mild 1-3)/fever Last Admin: 08/02/20 21:14 Dose: 650 mg Documented by: Albuterol (Proventil Neb Soln) 2.5 mg NEB Q2H PRN PRN Reason: Shortness Of Breath/wheezing Last Admin: 07/29/20 05:30 Dose: 2.5 mg Documented by: Albuterol/Ipratropium (Duoneb 3.0-0.5 Mg/3 Ml) 3 ml NEB Q4H PRN PRN Reason: Shortness Of Breath/wheezing Aspirin (Halfprin) 81 mg PO DAILY [facility] Last Admin: 08/02/20 08:47 Dose: 81 mg Documented by: Benzonatate (Tessalon Perles) 100 mg PO TID PRN PRN Reason: COUGH Last Admin: 08/01/20 20:34 Dose: 100 mg Documented by: Cholecalciferol (Vitamin D3) 5,000 unit PO DAILY [facility] Last Admin: 08/02/20 08:47 Dose: 5,000 unit Documented by: Dexamethasone (Dexamethasone) 6 mg PO BEDTIME [facility]ILA Stop: 08/05/20 21:01 Last Admin: 08/02/20 21:14 Dose: 6 mg Documented by: Enoxaparin Sodium (Lovenox) 40 mg SUBCUT BID [facility] Last Admin: 08/02/20 21:13 Dose: 40 mg Documented by: Guaifenesin/Codeine Phosphate (Robitussin Ac) 5 ml PO Q4H PRN PRN Reason: Cough Last Admin: 08/02/20 21:14 Dose: 5 ml Documented by: Guaifenesin/Phenylephrine HCl (Robitussin Dm) 10 ml PO Q4H PRN PRN Reason: Cough Levothyroxine Sodium (Synthroid) 88 mcg PO DAILY [facility] Last Admin: 08/02/20 08:48 Dose: 88 mcg Documented by: Ondansetron HCl (Zofran) 4 mg IV Q4H PRN PRN Reason: Nausea/Vomiting Sodium Chloride (Saline Flush) 10 ml FLUSH ONARRIVE [facility] Last Admin: 07/27/20 21:43 Dose: 10 ml Documented by: Zinc Sulfate (Zincate) 220 mg PO DAILY [facility] Last Admin: 08/02/20 08:47 Dose: 220 mg Documented by: Discontinued Medications Azithromycin (Zithromax) 500 mg PO DAILY [facility] Stop: 07/30/20 09:01 Last Admin: 07/30/20 09:20 Dose: 500 mg Documented by: Benzonatate (Tessalon Perles) 100 mg PO TID PRN PRN Reason: Cough Last Admin: 07/30/20 11:35 Dose: 100 mg Documented by: Dexamethasone (Decadron) 6 mg IVPUSH ONETIME STA Stop: 07/27/20 22:03 Last Admin: 07/27/20 22:14 Dose: 6 mg Documented by: Enoxaparin Sodium (Lovenox) 40 mg SUBCUT DAILY [facility] Last Admin: 07/28/20 08:33 Dose: 40 mg Documented by: Sodium Chloride (Normal Saline) 1,000 mls @ 100 mls/hr IV ASDIRECTED [facility] Stop: 07/29/20 00:03 Last Admin: 07/27/20 20:50 Dose: 100 mls/hr Documented by: Sodium Chloride (Normal Saline) 100 mls @ 60 mls/min IV ASDIRECTED [facility] Last Admin: 07/27/20 21:43 Dose: 60 mls/min Documented by: Remdesivir 200 mg/ Sodium (Chloride) 250 mls @ 250 mls/hr IV ONETIME ONE Stop: 07/27/20 22:45 Last Admin: 07/28/20 00:00 Dose: 250 mls/hr Documented by: Remdesivir 100 mg/ Sodium (Chloride) 100 mls @ 100 mls/hr IV Q24H [facility] Stop: 07/31/20 22:59 Last Admin: 07/31/20 21:50 Dose: 100 mls/hr Documented by: Ceftriaxone Sodium 2 gm/ (Sodium Chloride) 100 mls @ 200 mls/hr IV Q24H [facility] Stop: 08/01/20 09:59 Last Admin: 08/01/20 08:57 Dose: 200 mls/hr Documented by: Iopamidol (Isovue-370 (76%)) 100 ml IVPUSH ONETIME ONE Stop: 07/27/20 20:54 Last Admin: 07/27/20 21:43 Dose: 100 ml Documented by: Non-Formulary Medication (Nf Drug) 1 each PO DAILY [facility] Last Admin: 07/30/20 14:02 Dose: Not Given Documented by: Potassium Chloride (Klor-Con M20) 40 meq PO ONETIME ONE Stop: 07/27/20 22:47 Last Admin: 07/28/20 00:18 Dose: 40 meq Documented by: - Exam Quality Assessment: Supplemental Oxygen (High flow - 40L with FiO2 of 40), DVT Prophylaxis. No: Urine Catheter General: Alert, Oriented, Cooperative, No Acute Distress HEENT: Pupils Equal, Pupils Reactive, Mucous Membr. Moist/[place] Neck: Supple, Trachea Midline Lungs: Normal Respiratory Effort, Decreased Breath Sounds. No: Rhonchi, Wheezing Cardiovascular: Regular Rate, Regular Rhythm GI/Abdominal Exam: Normal Bowel Sounds, Soft, Non-Tender, No Distention (Female) Exam: Deferred Back Exam: Normal Inspection, Full Range of Motion Extremities: Normal Inspection, Normal Range of Motion, Non-Tender, No Pedal Edema, Normal Capillary Refill Skin: Warm, Dry, Intact Neurological: No New Focal Deficit Psy/Mental Status: Alert Sepsis Event Note - Evaluation Sepsis Screening Result: No Definite Risk - Focused Exam Vital Signs: Vital Signs Temp Pulse Pulse Resp BP Pulse Ox Pulse Ox 08/03/20 06:35 89 08/03/20 06:32 93 L 08/03/20 06:28 96.4 F L 36 L 16 129/82 95 08/03/20 06:10 95 08/03/20 00:58 91 L 08/02/20 21:13 97.2 F 68 16 115/72 91 L 08/02/20 20:20 94 L - Problem List & Annotations (1) COVID-19 SNOMED Code(s): 227787022 Code(s): U07.1 - COVID-19 Status: Acute Priority: High Current Visit: Yes (2) Hypoxia SNOMED Code(s): 069675702 Code(s): R09.02 - HYPOXEMIA Status: Acute Priority: High Current Visit: Yes (3) Hypokalemia SNOMED Code(s): 64199052 Code(s): E87.6 - HYPOKALEMIA Status: Acute Priority: High Current Visit: Yes (4) Elevated d-dimer SNOMED Code(s): 387792667 Code(s): R79.89 - OTHER SPECIFIED ABNORMAL FINDINGS OF BLOOD CHEMISTRY Status: Acute Priority: High Current Visit: Yes (5) Hypothyroidism SNOMED Code(s): 83160433 Code(s): E03.9 - HYPOTHYROIDISM, UNSPECIFIED Status: Chronic Priority: Low Current Visit: No Qualifiers: Hypothyroidism type: unspecified Qualified Code(s): E03.9 - Hypothyroidism, unspecified (6) Hypertension SNOMED Code(s): 96685037 Code(s): I10 - ESSENTIAL (PRIMARY) HYPERTENSION Status: Chronic Priority: Medium Current Visit: No Qualifiers: Hypertension type: unspecified Qualified Code(s): I10 - Essential (primary) hypertension (7) Hyponatremia SNOMED Code(s): 21004851 Code(s): E87.1 - HYPO-OSMOLALITY AND HYPONATREMIA Status: Acute Current Visit: Yes (8) Transaminitis SNOMED Code(s): 019068871, 843587840 Code(s): R74.01 - ELEVATION OF LEVELS OF LIVER TRANSAMINASE LEVELS Status: Acute Current Visit: Yes (9) Obesity (BMI 30.0-34.9) SNOMED Code(s): 871156160913217 Code(s): E66.9 - OBESITY, UNSPECIFIED Status: Chronic Priority: Medium Current Visit: Yes (10) Hyperglycemia SNOMED Code(s): 92015484 Code(s): R73.9 - HYPERGLYCEMIA, UNSPECIFIED Status: Acute Priority: High Current Visit: Yes - Problem List Review Problem List Initiated/Reviewed/Updated: Yes - Assessment Assessment:: Assessment - Day of admission 07/28/2020 (admitted overnight 07/27/2020): * 80 yo female who presents to ED with SOB, Fatigue, cough, and body aches * Denies fever, diarrhea, nausea/vomiting * hospitalized for COVID-19 after testing positive on 07/23/2020 * Oxygen saturations of 81% on room air in ED, 96% on 2L * 12-Lead EGK: NSR at 89 BPM with no signs of ischemia * CXR in ED: Bilateral hazy infiltrates, worse on right than on left * CTA in ED: Limited pulmonary arterial visualization, No evidence of central PE, Consider PAH, Diffuse pulmonary parenchymal abnormality Bilateral renal calculi * Labs: * WBC 9.32 * Hgb 14.0 * Plt 212 * D-dimer 2.59 * Sodium 133 * Potassium 3.3 * GFR >60 * Bilirubin 0.7 * AST 128, ALT 87, Alk phos 60 * Troponin 0.025 * Albumin 3.1 * Lactic acid 2.0 * Magnesium 2.0 * Pro-BNP 376 * ABG: pH 7.42, PCO2 37.6, PO2 55, HCO3 23.9, oxygen saturation 88.4 base excess 0.1, A-a gradient 48, on room air * TSH 0.897 * Influenza A and B - Negative * SARS-CoV-2 - positive * MRSA - negative * Admitted to [facility] for treatment of COVID-19, Hypokalemia, Hyponatremia, Hypoxia. 07/29/2020: * Remains on 2L oxygen (improved) * Continues to utilize acapella/IS * Denies any new complaints * Labs * D-dimer improved to 1.82 * WBC 10.49 (steroid?) * Sodium 138 * Potassium 4.5 * Glucose 160 * A1C 6.3 * AST 60, ALT 73, Alk Phos 51 * CRP 17.0 * Albumin 2.0 * Vitamin D 30.1 * Continue current treatment plan * Repots she feels better * Continued cough but non-productive 07/30/2020: * Continue current treatment * She remains on 2L oxygen * Rocephin 3/5 and Veklury 2/4 day of treatment * Dexamethasone 6 mg po 09/20 * Completed Azithromycin * IS and beside pulmonary exercise * Vitamin D and zinc supplement * May benefit with proning * Encourage to ambulate side her room as many times as she can * PRN decongestant/expectorant * Titrate to come off supplemental O2 * DVT prophylaxis: Lovenox 40 mg subQ BID * Code status: full * LOS > 96 hrs for complete treatment of Veklury 07/31/2020: * Continue current treatment * She remains on 2L oxygen * Rocephin 4/5 and Veklury 3/4 day of treatment * Dexamethasone 6 mg po 10/18 * Completed Azithromycin * Encourage to use IS/FV and beside pulmonary exercise * Continue Vitamin D and zinc supplement * May benefit with proning * Encourage to ambulate side her room as many times as she can * PRN decongestant/expectorant * Titrate to come off supplemental O2 * DVT prophylaxis: Lovenox 40 mg subQ BID * Code status: full * LOS > 96 hrs for complete treatment of Veklury and hopefully off supplemental O2 08/01/2020 * Continue current treatment * Continues to utilize IS/Acapella * Reports she has been up ambulating but has noticed her endurance is less * Reports she has been trying to prone * On 3.4L o2 - working on weaning * Reports she continues to feel better but has cough * Labs: * WBC 14.87 * Hgb 15.0 * Plt 339,000 * GFR >60 * CRP 4.0 * Albumin 2.7 08/02/2020 * Requiring high flow today - 55L FiO2 of 60 * Continues to utilize IS/Acapella * Coughing frequently * Labs: * WBC 12.45 * Hgb 14.1 * Plt 370 * GFR >60 * D. Dimer 1.29 * CRP 4.2 * Albumin 2.4 * Blood glucose levels have been stable * Continue dexamethasone - day02/18 * SW working on placement - patient in agreement to look into [facility] at discharge 08/03/2020 * Improved high flow today - 40L at FiO2 of 40 * Continues to utilize IS and acapella * Continued cough * Continues to be worried we are upset that we are not happy with how long she is proning for - reassured. * Reports frequent belching - likely 2/2 High flow * No labs obtained today * Dexamethasone day 03/21 * [facility] continues to work on placement - likely [facility] at discharge. - Plan Plan:: COVID-19 Infection Viral Pneumonitis/Atypical Pneumonia Hypoxia, on 2L NC Elevated d-dimer, CTA negative for PE Transaminitis, improving Class I Obese * Completed remdesivir, azithromycin, and Rocephin * Dexamethasone day 03/21 * O2 as needed; titrate when able * RT/IS/Acapella * Continue zinc and vit d supplement * Airborne and contact isolation * Continue daily 81 mg ASA * Lovenox 40mg BID due to elevated D-Dimer * Encourage ambulation around room * Encourage proning * Monitor daily labs * Check D-dimer Q48H * Telemetry/continuous pulse oximeter * PT consultation * /[facility] Hyperglycemia without diagnosis of DM or Glucose Intolerance * Likely 2/2 steroid administration * Monitor blood glucose AM/PM * Check A1C 6.30-meets criteria for pre-diabetes * Monitor need for insulin Hypokalemia, resolved Hyponatremia, resolved * [employer] consult * Monitor labs Hypothyroidism Hypertension * Continue home Levothyroxine * Hold home HCTZ * TSH WNL * Monitor vital signs Q8H PCP: Dr. Mars Code status: Full Code DVT prophylaxis: Lovenox Social: Patient lives with in [place]. is admitted to [facility] unit for COVID-19 as well. She reports neither her nor her drive and they often get rides around town by [employer] members. Disposition: Patient admitted for treatment of COVID-19, Hypoxia, and electrolyte abnormalities. LOS >96 hrs to complete treatment for COVID-19. Prognosis: Good
[2020-08-03] MEDS: Enoxaparin 40 MG/0.4 ML Syringe SUBCUT SCH ×2 (08:52→20:59)
[2020-08-03] MEDS: Levothyroxine 88 MCG Tab PO SCH (08:52)
[2020-08-03] MEDS: Aspirin 81 MG Tab.EC PO SCH (08:52)
[2020-08-03] MEDS: Cholecalciferol (Vitamin D3) 5,000 UNIT Cap PO SCH (08:53)
[2020-08-03] MEDS: Benzonatate 100 MG Cap PO PRN (08:53)
[2020-08-03] MEDS: Zinc Sulfate 220 MG Cap PO SCH (08:53)
[2020-08-03] MEDS: Dexamethasone 4 MG Tab PO SCH (20:59)
[2020-08-04] MEDS: Benzocaine/Cetylpyridinium/Menthol Lozenge MUCMEM PRN (05:36)
--- NOTE | 2020-08-04 07:11 | PCM.PN ---
<Derrick Ohara - Last Filed: 08/04/20 14:58> - General Info Date of Service: 08/04/20 Admission Dx/Problem (Free Text): Admission Diagnosis/Problem Admission Diagnosis/Problem Hypoxemia Subjective Update: In to see Yessi. She is up in the chair. She continues to tolerate her high flow well. She has been belching and reportedly passing gas. We will add as needed simethicone, should patient begin to complain of gas pain. Continue dexamethasone. She has no concerns currently and denies any pain. Continue to wean oxygen as tolerated. She continues to utilize her I-S and Acapella, along with proning. Functional Status: Reports: Pain Controlled, Tolerating Diet, Ambulating, Urinating, Incentive Spirometry, Other (Acapella ). Denies: New Symptoms - Review of Systems General: Reports: Weakness. Denies: Fever, Fatigue, Malaise, Chills HEENT: Reports: No Symptoms. Denies: Headaches, Sore Throat Pulmonary: Reports: Shortness of Breath, Cough. Denies: Pleuritic Chest Pain, Sputum, Wheezing Cardiovascular: Reports: No Symptoms, Dyspnea on Exertion. Denies: Chest Pain, Palpitations, Edema Gastrointestinal: Reports: No Symptoms. Denies: Abdominal Pain, Constipation, Decreased Appetite, Diarrhea, Nausea, Vomiting Genitourinary: Reports: No Symptoms. Denies: Dysuria Musculoskeletal: Reports: No Symptoms Skin: Reports: No Symptoms. Denies: Cyanosis Neurological: Reports: No Symptoms. Denies: Confusion, Numbness, Pre-Existing Deficit, Tingling, Difficulty Walking, Gait Disturbance Psychiatric: Reports: No Symptoms. Denies: Confusion - Patient Data Vitals - Most Recent: Last Vital Signs Temp 98.1 F 08/04/20 03:17 Pulse 66 08/04/20 03:17 Resp 24 H 08/04/20 03:17 BP 120/65 08/04/20 03:17 Pulse Ox 92 L 08/04/20 03:51 Weight - Most Recent: 88.723 kg I&O - Last 24 Hours: Intake & Output 08/03/20 08/04/20 08/04/20 22:59 06:59 14:59 Intake Total 1220 800 Output Total 1625 Balance 1220 -825 Lab Results Last 24 Hours: Laboratory Results - last 24 hr 08/03/20 Range/Units 20:53 POC Glucose 122 H (83-110) mg/dL Sea Results Last 24 Hours: Microbiology 07/27/20 20:49 Aerobic Blood Culture - Final Blood - Venous - Lab Draw NO GROWTH AFTER 7 DAYS Anaerobic Blood Culture - Final NO GROWTH AFTER 7 DAYS 07/27/20 20:39 Aerobic Blood Culture - Final Blood - Venous NO GROWTH AFTER 7 DAYS Anaerobic Blood Culture - Final NO GROWTH AFTER 7 DAYS Med Orders - Current: Current Medications Acetaminophen (Tylenol) 650 mg PO Q4H PRN PRN Reason: Pain (Mild 1-3)/fever Last Admin: 08/02/20 21:14 Dose: 650 mg Documented by: Albuterol (Proventil Neb Soln) 2.5 mg NEB Q2H PRN PRN Reason: Shortness Of Breath/wheezing Last Admin: 07/29/20 05:30 Dose: 2.5 mg Documented by: Albuterol/Ipratropium (Duoneb 3.0-0.5 Mg/3 Ml) 3 ml NEB Q4H PRN PRN Reason: Shortness Of Breath/wheezing Aspirin (Halfprin) 81 mg PO DAILY [facility] Last Admin: 08/03/20 08:52 Dose: 81 mg Documented by: Benzocaine/Menthol (Cepacol Sore Throat) 1 lozenge MUCMEM Q2H PRN PRN Reason: Sore Throat Last Admin: 08/04/20 05:36 Dose: 1 lozenge Documented by: Benzonatate (Tessalon Perles) 100 mg PO TID PRN PRN Reason: COUGH Last Admin: 08/03/20 08:53 Dose: 100 mg Documented by: Cholecalciferol (Vitamin D3) 5,000 unit PO DAILY [facility] Last Admin: 08/03/20 08:53 Dose: 5,000 unit Documented by: Dexamethasone (Dexamethasone) 6 mg PO BEDTIME [facility] Stop: 08/05/20 21:01 Last Admin: 08/03/20 20:59 Dose: 6 mg Documented by: Enoxaparin Sodium (Lovenox) 40 mg SUBCUT BID [facility] Last Admin: 08/03/20 20:59 Dose: 40 mg Documented by: Guaifenesin/Codeine Phosphate (Robitussin Ac) 5 ml PO Q4H PRN PRN Reason: Cough Last Admin: 08/02/20 21:14 Dose: 5 ml Documented by: Guaifenesin/Phenylephrine HCl (Robitussin Dm) 10 ml PO Q4H PRN PRN Reason: Cough Levothyroxine Sodium (Synthroid) 88 mcg PO DAILY [facility] Last Admin: 08/03/20 08:52 Dose: 88 mcg Documented by: Ondansetron HCl (Zofran) 4 mg IV Q4H PRN PRN Reason: Nausea/Vomiting Sodium Chloride (Saline Flush) 10 ml FLUSH ONARRIVE [facility] Last Admin: 07/27/20 21:43 Dose: 10 ml Documented by: Zinc Sulfate (Zincate) 220 mg PO DAILY [facility] Last Admin: 08/03/20 08:53 Dose: 220 mg Documented by: Discontinued Medications Azithromycin (Zithromax) 500 mg PO DAILY [facility] Stop: 07/30/20 09:01 Last Admin: 07/30/20 09:20 Dose: 500 mg Documented by: Benzonatate (Tessalon Perles) 100 mg PO TID PRN PRN Reason: Cough Last Admin: 07/30/20 11:35 Dose: 100 mg Documented by: Dexamethasone (Decadron) 6 mg IVPUSH ONETIME STA Stop: 07/27/20 22:03 Last Admin: 07/27/20 22:14 Dose: 6 mg Documented by: Enoxaparin Sodium (Lovenox) 40 mg SUBCUT DAILY [facility] Last Admin: 07/28/20 08:33 Dose: 40 mg Documented by: Sodium Chloride (Normal Saline) 1,000 mls @ 100 mls/hr IV ASDIRECTED [facility] Stop: 07/29/20 00:03 Last Admin: 07/27/20 20:50 Dose: 100 mls/hr Documented by: Sodium Chloride (Normal Saline) 100 mls @ 60 mls/min IV ASDIRECTED [facility] Last Admin: 07/27/20 21:43 Dose: 60 mls/min Documented by: Remdesivir 200 mg/ Sodium (Chloride) 250 mls @ 250 mls/hr IV ONETIME ONE Stop: 07/27/20 22:45 Last Admin: 07/28/20 00:00 Dose: 250 mls/hr Documented by: Remdesivir 100 mg/ Sodium (Chloride) 100 mls @ 100 mls/hr IV Q24H [facility] Stop: 07/31/20 22:59 Last Admin: 07/31/20 21:50 Dose: 100 mls/hr Documented by: Ceftriaxone Sodium 2 gm/ (Sodium Chloride) 100 mls @ 200 mls/hr IV Q24H [facility] Stop: 08/01/20 09:59 Last Admin: 08/01/20 08:57 Dose: 200 mls/hr Documented by: Iopamidol (Isovue-370 (76%)) 100 ml IVPUSH ONETIME ONE Stop: 07/27/20 20:54 Last Admin: 07/27/20 21:43 Dose: 100 ml Documented by: Non-Formulary Medication (Nf Drug) 1 each PO DAILY [facility] Last Admin: 07/30/20 14:02 Dose: Not Given Documented by: Potassium Chloride (Klor-Con M20) 40 meq PO ONETIME ONE Stop: 07/27/20 22:47 Last Admin: 07/28/20 00:18 Dose: 40 meq Documented by: - Exam Quality Assessment: Supplemental Oxygen (High Flow 45L and FiO2 of 50), DVT Prophylaxis General: Alert, Oriented, Cooperative. No: No Acute Distress HEENT: Pupils Equal, Pupils Reactive, Mucous Membr. Moist/[place] Neck: Supple, +2 Carotid Pulse wo Bruit Lungs: Normal Respiratory Effort, Decreased Breath Sounds. No: Rhonchi Cardiovascular: Regular Rate, Regular Rhythm GI/Abdominal Exam: Normal Bowel Sounds, Soft, Non-Tender, No Distention (Female) Exam: Deferred Back Exam: Normal Inspection, Full Range of Motion Extremities: Normal Inspection, Normal Range of Motion, Non-Tender, No Pedal Edema, Normal Capillary Refill Skin: Warm, Dry, Intact Neurological: No New Focal Deficit Psy/Mental Status: Alert, Normal Affect, Normal Mood Sepsis Event Note - Evaluation Sepsis Screening Result: No Definite Risk - Focused Exam Vital Signs: Vital Signs Temp Pulse Resp BP Pulse Ox Pulse Ox 08/04/20 03:51 92 L 08/04/20 03:17 98.1 F 66 24 H 120/65 89 L 08/03/20 23:01 98.1 F 69 30 H 121/89 88 L 08/03/20 19:52 98.1 F 80 18 138/64 90 L - Problem List & Annotations (1) COVID-19 SNOMED Code(s): 383826061 Code(s): U07.1 - COVID-19 Status: Acute Priority: High Current Visit: Yes (2) Hypoxia SNOMED Code(s): 542444676 Code(s): R09.02 - HYPOXEMIA Status: Acute Priority: High Current Visit: Yes (3) Hypokalemia SNOMED Code(s): 70981274 Code(s): E87.6 - HYPOKALEMIA Status: Acute Priority: High Current Visit: Yes (4) Elevated d-dimer SNOMED Code(s): 102064974 Code(s): R79.89 - OTHER SPECIFIED ABNORMAL FINDINGS OF BLOOD CHEMISTRY Status: Acute Priority: High Current Visit: Yes (5) Hypothyroidism SNOMED Code(s): 21012931 Code(s): E03.9 - HYPOTHYROIDISM, UNSPECIFIED Status: Chronic Priority: Low Current Visit: No Qualifiers: Hypothyroidism type: unspecified Qualified Code(s): E03.9 - Hypothyroidism, unspecified (6) Hypertension SNOMED Code(s): 86885632 Code(s): I10 - ESSENTIAL (PRIMARY) HYPERTENSION Status: Chronic Priority: Medium Current Visit: No Qualifiers: Hypertension type: unspecified Qualified Code(s): I10 - Essential (primary) hypertension (7) Hyponatremia SNOMED Code(s): 67719130 Code(s): E87.1 - HYPO-OSMOLALITY AND HYPONATREMIA Status: Acute Current Visit: Yes (8) Transaminitis SNOMED Code(s): 907458893, 888221592 Code(s): R74.01 - ELEVATION OF LEVELS OF LIVER TRANSAMINASE LEVELS Status: Acute Current Visit: Yes (9) Obesity (BMI 30.0-34.9) SNOMED Code(s): 152286819706524 Code(s): E66.9 - OBESITY, UNSPECIFIED Status: Chronic Priority: Medium Current Visit: Yes (10) Hyperglycemia SNOMED Code(s): 56774187 Code(s): R73.9 - HYPERGLYCEMIA, UNSPECIFIED Status: Acute Priority: High Current Visit: Yes - Problem List Review Problem List Initiated/Reviewed/Updated: Yes - Assessment Assessment:: Assessment - Day of admission 07/28/2020 (admitted overnight 07/27/2020): * 80 yo female who presents to ED with SOB, Fatigue, cough, and body aches * Denies fever, diarrhea, nausea/vomiting * hospitalized for COVID-19 after testing positive on 07/23/2020 * Oxygen saturations of 81% on room air in ED, 96% on 2L * 12-Lead EGK: NSR at 89 BPM with no signs of ischemia * CXR in ED: Bilateral hazy infiltrates, worse on right than on left * CTA in ED: Limited pulmonary arterial visualization, No evidence of central PE, Consider PAH, Diffuse pulmonary parenchymal abnormality Bilateral renal calculi * Labs: * WBC 9.32 * Hgb 14.0 * Plt 212 * D-dimer 2.59 * Sodium 133 * Potassium 3.3 * GFR >60 * Bilirubin 0.7 * AST 128, ALT 87, Alk phos 60 * Troponin 0.025 * Albumin 3.1 * Lactic acid 2.0 * Magnesium 2.0 * Pro-BNP 376 * ABG: pH 7.42, PCO2 37.6, PO2 55, HCO3 23.9, oxygen saturation 88.4 base excess 0.1, A-a gradient 48, on room air * TSH 0.897 * Influenza A and B - Negative * SARS-CoV-2 - positive * MRSA - negative * Admitted to [facility] for treatment of COVID-19, Hypokalemia, Hyponatremia, Hypoxia. 07/29/2020: * Remains on 2L oxygen (improved) * Continues to utilize acapella/IS * Denies any new complaints * Labs * D-dimer improved to 1.82 * WBC 10.49 (steroid?) * Sodium 138 * Potassium 4.5 * Glucose 160 * A1C 6.3 * AST 60, ALT 73, Alk Phos 51 * CRP 17.0 * Albumin 2.0 * Vitamin D 30.1 * Continue current treatment plan * Repots she feels better * Continued cough but non-productive 07/30/2020: * Continue current treatment * She remains on 2L oxygen * Rocephin 3/5 and Veklury 2/4 day of treatment * Dexamethasone 6 mg po 09/20 * Completed Azithromycin * IS and beside pulmonary exercise * Vitamin D and zinc supplement * May benefit with proning * Encourage to ambulate side her room as many times as she can * PRN decongestant/expectorant * Titrate to come off supplemental O2 * DVT prophylaxis: Lovenox 40 mg subQ BID * Code status: full * LOS > 96 hrs for complete treatment of Veklury 07/31/2020: * Continue current treatment * She remains on 2L oxygen * Rocephin /5 and Veklury 3/ day of treatment * Dexamethasone 6 mg po 10/18 * Completed Azithromycin * Encourage to use IS/FV and beside pulmonary exercise * Continue Vitamin D and zinc supplement * May benefit with proning * Encourage to ambulate side her room as many times as she can * PRN decongestant/expectorant * Titrate to come off supplemental O2 * DVT prophylaxis: Lovenox 40 mg subQ BID * Code status: full * LOS > 96 hrs for complete treatment of Veklury and hopefully off supplemental O2 08/01/2020 * Continue current treatment * Continues to utilize IS/Acapella * Reports she has been up ambulating but has noticed her endurance is less * Reports she has been trying to prone * On 3.4L o2 - working on weaning * Reports she continues to feel better but has cough * Labs: * WBC 14.87 * Hgb 15.0 * Plt 339,000 * GFR >60 * CRP 4.0 * Albumin 2.7 08/02/2020 * Requiring high flow today - 55L FiO2 of 60 * Continues to utilize IS/Acapella * Coughing frequently * Labs: * WBC 12.45 * Hgb 14.1 * Plt 370 * GFR >60 * D. Dimer 1.29 * CRP 4.2 * Albumin 2.4 * Blood glucose levels have been stable * Continue dexamethasone - day02/18 * SW working on placement - patient in agreement to look into [facility] at discharge 08/03/2020 * Improved high flow today - 40L at FiO2 of 40 * Continues to utilize IS and acapella * Continued cough * Continues to be worried we are upset that we are not happy with how long she is proning for - reassured. * Reports frequent belching - likely 2/2 High flow * No labs obtained today * Dexamethasone day 03/21 * SW continues to work on placement - likely [facility] at discharge. 08/04/2020 * Worsening High flow today 45L with FiO2 of 50 * Continues to utilize acapella and IS * Continues to prone as tolerated * No labs obtained today * Dexamethasone day 04/21 * Patient and accepted at [facility] after discharge * Added PRN simethicone for gas pains - Plan Plan:: COVID-19 Infection Viral Pneumonitis/Atypical Pneumonia Hypoxia, on 2L NC Elevated d-dimer, CTA negative for PE Transaminitis, improving Class I Obese * Completed remdesivir, azithromycin, and Rocephin * Dexamethasone day 04/21 * O2 as needed; titrate when able * Attempt to wean off of High flow O2 * RT/IS/Acapella * Continue zinc and vit d supplement * Airborne and contact isolation * Continue daily 81 mg ASA * Lovenox 40mg BID due to elevated D-Dimer * Encourage ambulation around room * Encourage proning * Monitor daily labs * Check D-dimer Q48H * Telemetry/continuous pulse oximeter * PT consultation * CM/SW Hyperglycemia without diagnosis of DM or Glucose Intolerance, mild * Likely 2/2 steroid administration * Monitor blood glucose AM/PM * Check A1C 6.30-meets criteria for pre-diabetes * Monitor need for insulin Hypokalemia, resolved Hyponatremia, resolved * Radiology Services Manager consult * Monitor labs Hypothyroidism Hypertension * Continue home Levothyroxine * Hold home HCTZ * TSH WNL * Monitor vital signs Q8H PCP: Dr. Mars Code status: Full Code DVT prophylaxis: Lovenox Social: Patient lives with in [place]. is admitted to [facility] unit for COVID-19 as well. She reports neither her nor her drive and they often get rides around town by confucianism members. Disposition: Patient admitted for treatment of COVID-19, Hypoxia, and electrolyte abnormalities. LOS >96 hrs to complete treatment for COVID-19. Prognosis: Good <Elvis Goodman - Last Filed: 08/04/20 15:42> - Patient Data Vitals - Most Recent: Last Vital Signs Temp 36.7 C 08/04/20 03:17 Pulse 66 08/04/20 03:17 Resp 24 H 08/04/20 03:17 BP 120/65 08/04/20 03:17 Pulse Ox 94 L 08/04/20 12:49 I&O - Last 24 Hours: Intake & Output 08/04/20 08/04/20 08/04/20 06:59 14:59 22:59 Intake Total 800 420 Output Total 1625 Balance -825 420 Lab Results Last 24 Hours: Laboratory Results - last 24 hr 08/03/20 Range/Units 20:53 POC Glucose 122 H (83-110) mg/dL Sea Results Last 24 Hours: Microbiology 07/27/20 20:49 Aerobic Blood Culture - Final Blood - Venous - Lab Draw NO GROWTH AFTER 7 DAYS Anaerobic Blood Culture - Final NO GROWTH AFTER 7 DAYS 07/27/20 20:39 Aerobic Blood Culture - Final Blood - Venous NO GROWTH AFTER 7 DAYS Anaerobic Blood Culture - Final NO GROWTH AFTER 7 DAYS Med Orders - Current: Current Medications Acetaminophen (Tylenol) 650 mg PO Q4H PRN PRN Reason: Pain (Mild 1-3)/fever Last Admin: 08/02/20 21:14 Dose: 650 mg Documented by: Albuterol (Proventil Neb Soln) 2.5 mg NEB Q2H PRN PRN Reason: Shortness Of Breath/wheezing Last Admin: 07/29/20 05:30 Dose: 2.5 mg Documented by: Albuterol/Ipratropium (Duoneb 3.0-0.5 Mg/3 Ml) 3 ml NEB Q4H PRN PRN Reason: Shortness Of Breath/wheezing Aspirin (Halfprin) 81 mg PO DAILY [facility] Last Admin: 08/04/20 08:20 Dose: 81 mg Documented by: Benzocaine/Menthol (Cepacol Sore Throat) 1 lozenge MUCMEM Q2H PRN PRN Reason: Sore Throat Last Admin: 08/04/20 05:36 Dose: 1 lozenge Documented by: Benzonatate (Tessalon Perles) 100 mg PO TID PRN PRN Reason: COUGH Last Admin: 08/04/20 08:21 Dose: 100 mg Documented by: Cholecalciferol (Vitamin D3) 5,000 unit PO DAILY [facility] Last Admin: 08/04/20 08:20 Dose: 5,000 unit Documented by: Dexamethasone (Dexamethasone) 6 mg PO BEDTIME [facility] Stop: 08/05/20 21:01 Last Admin: 08/03/20 20:59 Dose: 6 mg Documented by: Enoxaparin Sodium (Lovenox) 40 mg SUBCUT BID [facility] Last Admin: 08/04/20 08:20 Dose: 40 mg Documented by: Guaifenesin/Codeine Phosphate (Robitussin Ac) 5 ml PO Q4H PRN PRN Reason: Cough Last Admin: 08/02/20 21:14 Dose: 5 ml Documented by: Guaifenesin/Phenylephrine HCl (Robitussin Dm) 10 ml PO Q4H PRN PRN Reason: Cough Levothyroxine Sodium (Synthroid) 88 mcg PO DAILY [facility] Last Admin: 08/04/20 08:21 Dose: 88 mcg Documented by: Ondansetron HCl (Zofran) 4 mg IV Q4H PRN PRN Reason: Nausea/Vomiting Simethicone (Simethicone) 80 mg PO Q6H PRN PRN Reason: Gas pains Sodium Chloride (Saline Flush) 10 ml FLUSH ONARRIVE [facility] Last Admin: 07/27/20 21:43 Dose: 10 ml Documented by: Zinc Sulfate (Zincate) 220 mg PO DAILY [facility] Last Admin: 08/04/20 08:20 Dose: 220 mg Documented by: Discontinued Medications Azithromycin (Zithromax) 500 mg PO DAILY [facility] Stop: 07/30/20 09:01 Last Admin: 07/30/20 09:20 Dose: 500 mg Documented by: Benzonatate (Tessalon Perles) 100 mg PO TID PRN PRN Reason: Cough Last Admin: 07/30/20 11:35 Dose: 100 mg Documented by: Dexamethasone (Decadron) 6 mg IVPUSH ONETIME STA Stop: 07/27/20 22:03 Last Admin: 07/27/20 22:14 Dose: 6 mg Documented by: Enoxaparin Sodium (Lovenox) 40 mg SUBCUT DAILY [facility] Last Admin: 07/28/20 08:33 Dose: 40 mg Documented by: Sodium Chloride (Normal Saline) 1,000 mls @ 100 mls/hr IV ASDIRECTED [facility] Stop: 07/29/20 00:03 Last Admin: 07/27/20 20:50 Dose: 100 mls/hr Documented by: Sodium Chloride (Normal Saline) 100 mls @ 60 mls/min IV ASDIRECTED [facility] Last Admin: 07/27/20 21:43 Dose: 60 mls/min Documented by: Remdesivir 200 mg/ Sodium (Chloride) 250 mls @ 250 mls/hr IV ONETIME ONE Stop: 07/27/20 22:45 Last Admin: 07/28/20 00:00 Dose: 250 mls/hr Documented by: Remdesivir 100 mg/ Sodium (Chloride) 100 mls @ 100 mls/hr IV Q24H [facility] Stop: 07/31/20 22:59 Last Admin: 07/31/20 21:50 Dose: 100 mls/hr Documented by: Ceftriaxone Sodium 2 gm/ (Sodium Chloride) 100 mls @ 200 mls/hr IV Q24H [facility] Stop: 08/01/20 09:59 Last Admin: 08/01/20 08:57 Dose: 200 mls/hr Documented by: Iopamidol (Isovue-370 (76%)) 100 ml IVPUSH ONETIME ONE Stop: 07/27/20 20:54 Last Admin: 07/27/20 21:43 Dose: 100 ml Documented by: Non-Formulary Medication (Nf Drug) 1 each PO DAILY [facility] Last Admin: 07/30/20 14:02 Dose: Not Given Documented by: Potassium Chloride (Klor-Con M20) 40 meq PO ONETIME ONE Stop: 07/27/20 22:47 Last Admin: 07/28/20 00:18 Dose: 40 meq Documented by: Sepsis Event Note - Focused Exam Vital Signs: Vital Signs Pulse Ox 08/04/20 12:49 94 L 08/04/20 08:38 92 L 08/04/20 08:33 87 L 08/04/20 03:51 92 L - Plan Plan:: I have seen and evaluated the patient independently of Derrick Ohara PA-C. I have reviewed and agree with the plan of care as outlined by him for this patient. Please see orders.
[2020-08-04] MEDS: Cholecalciferol (Vitamin D3) 5,000 UNIT Cap PO SCH (08:20)
[2020-08-04] MEDS: Zinc Sulfate 220 MG Cap PO SCH (08:20)
[2020-08-04] MEDS: Aspirin 81 MG Tab.EC PO SCH (08:20)
[2020-08-04] MEDS: Enoxaparin 40 MG/0.4 ML Syringe SUBCUT SCH ×2 (08:20→21:40)
[2020-08-04] MEDS: Benzonatate 100 MG Cap PO PRN (08:21)
[2020-08-04] MEDS: Levothyroxine 88 MCG Tab PO SCH (08:21)
[2020-08-04] MEDS ORDERED: Simethicone 80 MG Tab.Chew PO PRN (14:59)
[2020-08-04] MEDS: Dexamethasone 4 MG Tab PO SCH (21:39)
[2020-08-04] MEDS: Codeine/guaiFENesin 10-100 MG/5 ML Syrup 5 ML Cup PO PRN (21:40)
[2020-08-05] MEDS: Levothyroxine 88 MCG Tab PO SCH (08:18)
[2020-08-05] MEDS: Zinc Sulfate 220 MG Cap PO SCH (08:18)
[2020-08-05] MEDS: Aspirin 81 MG Tab.EC PO SCH (08:18)
[2020-08-05] MEDS: Cholecalciferol (Vitamin D3) 5,000 UNIT Cap PO SCH (08:19)
[2020-08-05] MEDS: Enoxaparin 40 MG/0.4 ML Syringe SUBCUT SCH ×2 (08:19→20:17)
--- NOTE | 2020-08-05 08:38 | PCM.PN ---
- General Info Date of Service: 08/05/20 Admission Dx/Problem (Free Text): Admission Diagnosis/Problem Admission Diagnosis/Problem Hypoxemia, COVID-19 infection Subjective Update: The patient is a 80-year-old lady who had been admitted to acute hospitalization for Covid 19 infection and hypoxia. The patient's is also in the hospital with COVID-19. The patient is currently on day 9 of her hospitalization. The patient says she is doing well. Patient says that she is not in any pain. She has been tolerating her diet. She has no complaints today. Functional Status: Reports: Pain Controlled, Tolerating Diet - Review of Systems General: Reports: Weakness HEENT: Reports: No Symptoms Pulmonary: Reports: Shortness of Breath Cardiovascular: Reports: No Symptoms Gastrointestinal: Reports: No Symptoms Genitourinary: Reports: No Symptoms Musculoskeletal: Reports: No Symptoms Skin: Reports: No Symptoms Neurological: Reports: No Symptoms Psychiatric: Reports: No Symptoms - Patient Data Vitals - Most Recent: Last Vital Signs Temp 35.8 C L 08/05/20 04:22 Pulse 48 L 08/05/20 04:22 Resp 18 08/05/20 04:22 BP 143/71 H 08/05/20 04:22 Pulse Ox 92 L 08/05/20 04:22 Weight - Most Recent: 88.314 kg I&O - Last 24 Hours: Intake & Output 08/04/20 08/05/20 08/05/20 22:59 06:59 14:59 Intake Total 690 400 Output Total 251 600 Balance 439 -200 Lab Results Last 24 Hours: Laboratory Results - last 24 hr 08/04/20 08/05/20 08/05/20 Range/Units 21:38 04:55 04:55 WBC 10.14 H (3.98-10.04) K/mm3 RBC 4.77 (3.98-5.22) M/mm3 Hgb 13.8 (11.2-15.7) gm/dl Hct 43.5 (34.1-44.9) % MCV 91.2 (79.4-94.8) fl MCH 28.9 (25.6-32.2) pg MCHC 31.7 L (32.2-35.5) g/dl RDW Std Deviation 47.0 H (36.4-46.3) fL Plt Count 352 (182-369) K/mm3 MPV 11.1 (9.4-12.3) fl Neut % (Auto) 89.2 H (34.0-71.1) % Lymph % (Auto) 5.9 L (19.3-51.7) % [place] % (Auto) 3.6 L (4.7-12.5) % Eos % (Auto) 0 L (0.7-5.8) Baso % (Auto) 0.0 L (0.1-1.2) % Neut # (Auto) 9.04 H (1.56-6.13) K/mm3 Lymph # (Auto) 0.60 L (1.18-3.74) K/mm3 [place] # (Auto) 0.37 H (0.24-0.36) K/mm3 Eos # (Auto) 0.00 L (0.04-0.36) K/mm3 Baso # (Auto) 0.00 L (0.01-0.08) K/mm3 Manual Slide Review Abnormal smear D-Dimer, Quantitative 1.13 H (0.19-0.50) mg/L Sodium (136-145) mEq/L Potassium (3.5-5.1) mEq/L Chloride (98-107) mEq/L Carbon Dioxide (21-32) mEq/L Anion Gap (5-15) BUN (7-18) mg/dL Creatinine (0.55-1.02) mg/dL Est Cr Clr Drug Dosing mL/min Estimated GFR (MDRD) (>60) mL/min BUN/Creatinine Ratio (14-18) Glucose (83-115) mg/dL POC Glucose 97 (83-110) mg/dL Calcium (8.5-10.1) mg/dL Magnesium (1.8-2.4) mg/dl Total Bilirubin (0.2-1.0) mg/dL AST (15-37) U/L ALT (14-59) U/L Alkaline Phosphatase (46-116) U/L C-Reactive Protein (<1.0) mg/dL Total Protein (6.4-8.2) g/dl Albumin (3.4-5.0) g/dl Globulin gm/dL Albumin/Globulin Ratio (1-2) 08/05/ Range/Units 04:55 WBC (3.98-10.04) K/mm3 RBC (3.98-5.22) M/mm3 Hgb (11.2-15.7) gm/dl Hct (34.1-44.9) % MCV (79.4-94.8) fl MCH (25.6-32.2) pg MCHC (32.2-35.5) g/dl RDW Std Deviation (36.4-46.3) fL Plt Count (182-369) K/mm3 MPV (9.4-12.3) fl Neut % (Auto) (34.0-71.1) % Lymph % (Auto) (19.3-51.7) % [place] % (Auto) (4.7-12.5) % Eos % (Auto) (0.7-5.8) Baso % (Auto) (0.1-1.2) % Neut # (Auto) (1.56-6.13) K/mm3 Lymph # (Auto) (1.18-3.74) K/mm3 [place] # (Auto) (0.24-0.36) K/mm3 Eos # (Auto) (0.04-0.36) K/mm3 Baso # (Auto) (0.01-0.08) K/mm3 Manual Slide Review D-Dimer, Quantitative (0.19-0.50) mg/L Sodium 138 (136-145) mEq/L Potassium 4.6 (3.5-5.1) mEq/L Chloride 104 (98-107) mEq/L Carbon Dioxide 29 (21-32) mEq/L Anion Gap 9.6 (5-15) BUN 21 H (7-18) mg/dL Creatinine 0.8 (0.55-1.02) mg/dL Est Cr Clr Drug Dosing 49.60 mL/min Estimated GFR (MDRD) > 60 (>60) mL/min BUN/Creatinine Ratio 26.3 H (14-18) Glucose 151 H (83-115) mg/dL POC Glucose (83-110) mg/dL Calcium 8.3 L (8.5-10.1) mg/dL Magnesium 2.4 (1.8-2.4) mg/dl Total Bilirubin 0.6 (0.2-1.0) mg/dL AST 22 (15-37) U/L ALT 39 (14-59) U/L Alkaline Phosphatase 54 (46-116) U/L C-Reactive Protein 1.6 H* (<1.0) mg/dL Total Protein 6.2 L (6.4-8.2) g/dl Albumin 2.4 L (3.4-5.0) g/dl Globulin 3.8 gm/dL Albumin/Globulin Ratio 0.6 L (1-2) Med Orders - Current: Current Medications Acetaminophen (Tylenol) 650 mg PO Q4H PRN PRN Reason: Pain (Mild 1-3)/fever Last Admin: 08/02/20 21:14 Dose: 650 mg Documented by: Albuterol (Proventil Neb Soln) 2.5 mg NEB Q2H PRN PRN Reason: Shortness Of Breath/wheezing Last Admin: 07/29/20 05:30 Dose: 2.5 mg Documented by: Albuterol/Ipratropium (Duoneb 3.0-0.5 Mg/3 Ml) 3 ml NEB Q4H PRN PRN Reason: Shortness Of Breath/wheezing Aspirin (Halfprin) 81 mg PO DAILY [facility] Last Admin: 08/05/20 08:18 Dose: 81 mg Documented by: Benzocaine/Menthol (Cepacol Sore Throat) 1 lozenge MUCMEM Q2H PRN PRN Reason: Sore Throat Last Admin: 08/04/20 05:36 Dose: 1 lozenge Documented by: Benzonatate (Tessalon Perles) 100 mg PO TID PRN PRN Reason: COUGH Last Admin: 08/04/20 08:21 Dose: 100 mg Documented by: Cholecalciferol (Vitamin D3) 5,000 unit PO DAILY [facility] Last Admin: 08/05/20 08:19 Dose: 5,000 unit Documented by: Dexamethasone (Dexamethasone) 6 mg PO BEDTIME [facility] Stop: 08/05/20 21:01 Last Admin: 08/04/20 21:39 Dose: 6 mg Documented by: Enoxaparin Sodium (Lovenox) 40 mg SUBCUT BID [facility] Last Admin: 08/05/20 08:19 Dose: 40 mg Documented by: Guaifenesin/Codeine Phosphate (Robitussin Ac) 5 ml PO Q4H PRN PRN Reason: Cough Last Admin: 08/04/20 21:40 Dose: 5 ml Documented by: Guaifenesin/Phenylephrine HCl (Robitussin Dm) 10 ml PO Q4H PRN PRN Reason: Cough Levothyroxine Sodium (Synthroid) 88 mcg PO DAILY [facility] Last Admin: 08/05/20 08:18 Dose: 88 mcg Documented by: Ondansetron HCl (Zofran) 4 mg IV Q4H PRN PRN Reason: Nausea/Vomiting Simethicone (Simethicone) 80 mg PO Q6H PRN PRN Reason: Gas pains Sodium Chloride (Saline Flush) 10 ml FLUSH ONARRIVE [facility] Last Admin: 07/27/20 21:43 Dose: 10 ml Documented by: Zinc Sulfate (Zincate) 220 mg PO DAILY [facility] Last Admin: 08/05/20 08:18 Dose: 220 mg Documented by: Discontinued Medications Azithromycin (Zithromax) 500 mg PO DAILY [facility] Stop: 07/30/20 09:01 Last Admin: 07/30/20 09:20 Dose: 500 mg Documented by: Benzonatate (Tessalon Perles) 100 mg PO TID PRN PRN Reason: Cough Last Admin: 07/30/20 11:35 Dose: 100 mg Documented by: Dexamethasone (Decadron) 6 mg IVPUSH ONETIME STA Stop: 07/27/20 22:03 Last Admin: 07/27/20 22:14 Dose: 6 mg Documented by: Enoxaparin Sodium (Lovenox) 40 mg SUBCUT DAILY [facility] Last Admin: 07/28/20 08:33 Dose: 40 mg Documented by: Sodium Chloride (Normal Saline) 1,000 mls @ 100 mls/hr IV ASDIRECTED NAILA Stop: 07/29/20 00:03 Last Admin: 07/27/20 20:50 Dose: 100 mls/hr Documented by: Sodium Chloride (Normal Saline) 100 mls @ 60 mls/min IV ASDIRECTED [facility] Last Admin: 07/27/20 21:43 Dose: 60 mls/min Documented by: Remdesivir 200 mg/ Sodium (Chloride) 250 mls @ 250 mls/hr IV ONETIME ONE Stop: 07/27/20 22:45 Last Admin: 07/28/20 00:00 Dose: 250 mls/hr Documented by: Remdesivir 100 mg/ Sodium (Chloride) 100 mls @ 100 mls/hr IV Q24H [facility]IL[facility] Stop: 07/31/20 22:59 Last Admin: 07/31/20 21:50 Dose: 100 mls/hr Documented by: Ceftriaxone Sodium 2 gm/ (Sodium Chloride) 100 mls @ 200 mls/hr IV Q24H [facility]IL[facility] Stop: 08/01/20 09:59 Last Admin: 08/01/20 08:57 Dose: 200 mls/hr Documented by: Iopamidol (Isovue-370 (76%)) 100 ml IVPUSH ONETIME ONE Stop: 07/27/20 20:54 Last Admin: 07/27/20 21:43 Dose: 100 ml Documented by: Non-Formulary Medication (Nf Drug) 1 each PO DAILY [facility] Last Admin: 07/30/20 14:02 Dose: Not Given Documented by: Potassium Chloride (Klor-Con M20) 40 meq PO ONETIME ONE Stop: 07/27/20 22:47 Last Admin: 07/28/20 00:18 Dose: 40 meq Documented by: - Exam Quality Assessment: Supplemental Oxygen General: Alert, Oriented, Cooperative, No Acute Distress HEENT: Pupils Equal, Pupils Reactive, EOMI. No: Mucous Membr. Moist/Bowles (Dry) Neck: Supple, Trachea Midline Lungs: Clear to Auscultation, Normal Respiratory Effort Cardiovascular: Regular Rate, Regular Rhythm GI/Abdominal Exam: Normal Bowel Sounds, Soft, Non-Tender, No Distention (Female) Exam: Deferred Back Exam: Normal Inspection (Appropriate for age) Extremities: Normal Inspection, No Pedal Edema Skin: Warm, Dry, Intact Neurological: No New Focal Deficit Psy/Mental Status: Alert, Normal Affect, Normal Mood Sepsis Event Note - Evaluation Sepsis Screening Result: No Definite Risk - Focused Exam Vital Signs: Vital Signs Temp Pulse Resp BP BP Pulse Ox Pulse Ox 08/05/20 04:22 35.8 C L 48 L 18 143/71 H 92 L 08/05/20 01:00 128/92 H 08/05/20 00:25 59 L 15 128/105 H 94 L 08/04/20 20:42 90 L - Problem List & Annotations (1) Acute respiratory failure due to COVID-19 SNOMED Code(s): 825865595 Code(s): U07.1 - COVID-19; J96.00 - ACUTE RESPIRATORY FAILURE, UNSP W HYPOXIA OR HYPERCAPNIA Status: Acute Priority: High Current Visit: Yes (2) Hypertension SNOMED Code(s): 70494640 Code(s): I10 - ESSENTIAL (PRIMARY) HYPERTENSION Status: Chronic Priority: Medium Current Visit: No Qualifiers: Hypertension type: unspecified Qualified Code(s): I10 - Essential (primary) hypertension - Problem List Review Problem List Initiated/Reviewed/Updated: Yes - Assessment Assessment:: Assessment - Day of admission 07/28/2020 (admitted overnight 07/27/2020): * 80 yo female who presents to ED with SOB, Fatigue, cough, and body aches * Denies fever, diarrhea, nausea/vomiting * hospitalized for COVID-19 after testing positive on 07/23/2020 * Oxygen saturations of 81% on room air in ED, 96% on 2L * 12-Lead EGK: NSR at 89 BPM with no signs of ischemia * CXR in ED: Bilateral hazy infiltrates, worse on right than on left * CTA in ED: Limited pulmonary arterial visualization, No evidence of central PE, Consider PAH, Diffuse pulmonary parenchymal abnormality Bilateral renal calculi * Labs: * WBC 9.32 * Hgb 14.0 * Plt 212 * D-dimer 2.59 * Sodium 133 * Potassium 3.3 * GFR >60 * Bilirubin 0.7 * AST 128, ALT 87, Alk phos 60 * Troponin 0.025 * Albumin 3.1 * Lactic acid 2.0 * Magnesium 2.0 * Pro-BNP 376 * ABG: pH 7.42, PCO2 37.6, PO2 55, HCO3 23.9, oxygen saturation 88.4 base excess 0.1, A-a gradient 48, on room air * TSH 0.897 * Influenza A and B - Negative * SARS-CoV-2 - positive * MRSA - negative * Admitted to [facility] for treatment of COVID-19, Hypokalemia, Hyponatremia, Hypoxia. 07/29/2020: * Remains on 2L oxygen (improved) * Continues to utilize acapella/IS * Denies any new complaints * Labs * D-dimer improved to 1.82 * WBC 10.49 (steroid?) * Sodium 138 * Potassium 4.5 * Glucose 160 * A1C 6.3 * AST 60, ALT 73, Alk Phos 51 * CRP 17.0 * Albumin 2.0 * Vitamin D 30.1 * Continue current treatment plan * Repots she feels better * Continued cough but non-productive 07/30/2020: * Continue current treatment * She remains on 2L oxygen * Rocephin 3/5 and Veklury 2/ day of treatment * Dexamethasone 6 mg po 09/20 * Completed Azithromycin * IS and beside pulmonary exercise * Vitamin D and zinc supplement * May benefit with proning * Encourage to ambulate side her room as many times as she can * PRN decongestant/expectorant * Titrate to come off supplemental O2 * DVT prophylaxis: Lovenox 40 mg subQ BID * Code status: full * LOS > 96 hrs for complete treatment of Veklury 07/31/2020: * Continue current treatment * She remains on 2L oxygen * Rocephin 4/5 and Veklury 3/ day of treatment * Dexamethasone 6 mg po 10/18 * Completed Azithromycin * Encourage to use IS/FV and beside pulmonary exercise * Continue Vitamin D and zinc supplement * May benefit with proning * Encourage to ambulate side her room as many times as she can * PRN decongestant/expectorant * Titrate to come off supplemental O2 * DVT prophylaxis: Lovenox 40 mg subQ BID * Code status: full * LOS > 96 hrs for complete treatment of Veklury and hopefully off supplemental O2 08/01/2020 * Continue current treatment * Continues to utilize IS/Acapella * Reports she has been up ambulating but has noticed her endurance is less * Reports she has been trying to prone * On 3.4L o2 - working on weaning * Reports she continues to feel better but has cough * Labs: * WBC 14.87 * Hgb 15.0 * Plt 339,000 * GFR >60 * CRP 4.0 * Albumin 2.7 08/02/2020 * Requiring high flow today - 55L FiO2 of 60 * Continues to utilize IS/Acapella * Coughing frequently * Labs: * WBC 12.45 * Hgb 14.1 * Plt 370 * GFR >60 * D. Dimer 1.29 * CRP 4.2 * Albumin 2.4 * Blood glucose levels have been stable * Continue dexamethasone - day02/18 * SW working on placement - patient in agreement to look into [facility] at discharge 08/03/2020 * Improved high flow today - 40L at FiO2 of 40 * Continues to utilize IS and acapella * Continued cough * Continues to be worried we are upset that we are not happy with how long she is proning for - reassured. * Reports frequent belching - likely 2/2 High flow * No labs obtained today * Dexamethasone day 03/21 * SW continues to work on placement - likely [facility] at discharge. 08/04/2020 * Worsening High flow today 45L with FiO2 of 50 * Continues to utilize acapella and IS * Continues to prone as tolerated * No labs obtained today * Dexamethasone day 04/21 * Patient and accepted at [facility] after discharge * Added PRN simethicone for gas pains 08/05/2020 The patient is a 80-year-old lady who continues with acute respiratory failure due to COVID-19. She is currently on high flow oxygen and this will be continued to help keep her saturations above 92%. The patient also is awaiting placement. She has completed treatment for COVID-19 and I have removed her isolation. The patient will also be kept on her DVT prophylaxis. She has been encouraged to ambulate. The patient is also been advised to utilize incentives parameter. The patient is actively appropriate for discharge once placement is arranged. Repeat laboratory studies have been ordered for the morning. The patient will continue on her current diet as tolerated. - Plan Plan:: I have seen and evaluated the patient independently of Derrick Ohara PA-C. I have reviewed and agree with the plan of care as outlined by him for this patient. Please see orders.
[2020-08-05] MEDS: Benzonatate 100 MG Cap PO PRN ×2 (08:46→20:17)
[2020-08-05] MEDS ORDERED: Aluminum Hydroxide/Magnesium Hydroxide/Simethicone Susp 30 ML Cup PO PRN (18:42)
[2020-08-05] MEDS: Dexamethasone 4 MG Tab PO SCH (20:16)
[2020-08-06] MEDS: Cholecalciferol (Vitamin D3) 5,000 UNIT Cap PO SCH (09:40)
[2020-08-06] MEDS: Enoxaparin 40 MG/0.4 ML Syringe SUBCUT SCH ×2 (09:40→22:15)
[2020-08-06] MEDS: Aspirin 81 MG Tab.EC PO SCH (09:40)
[2020-08-06] MEDS: Levothyroxine 88 MCG Tab PO SCH (09:41)
[2020-08-06] MEDS: Zinc Sulfate 220 MG Cap PO SCH (09:41)
--- NOTE | 2020-08-06 10:16 | PCM.PN ---
- General Info Date of Service: 08/06/20 Admission Dx/Problem (Free Text): Admission Diagnosis/Problem Admission Diagnosis/Problem Hypoxemia, COVID-19 infection Subjective Update: Patient is a 80-year-old lady who has been admitted on July 28, 2020 due to COVID-19 pneumonia. The patient still remains on high flow oxygen. The patient says that she has been doing well. She has been eating adequately. She also has denied any nausea or vomiting. The patient also says that she has been attempting to ambulate. The patient is currently awaiting placement. Functional Status: Reports: Pain Controlled, Tolerating Diet, Ambulating - Review of Systems General: Reports: Weakness HEENT: Reports: No Symptoms Pulmonary: Reports: Shortness of Breath Cardiovascular: Reports: No Symptoms Gastrointestinal: Reports: No Symptoms Genitourinary: Reports: No Symptoms Musculoskeletal: Reports: No Symptoms Skin: Reports: No Symptoms Neurological: Reports: No Symptoms Psychiatric: Reports: No Symptoms - Patient Data Vitals - Most Recent: Last Vital Signs Temp 36.8 C 08/06/20 07:40 Pulse 49 L 08/06/20 07:40 Resp 18 08/06/20 07:40 BP 145/79 H 08/06/20 08:13 Pulse Ox 94 L 08/06/20 07:40 Weight - Most Recent: 88.949 kg I&O - Last 24 Hours: Intake & Output 08/05/20 08/06/20 08/06/20 22:59 06:59 14:59 Intake Total 1240 300 Output Total 450 750 Balance 790 -450 Lab Results Last 24 Hours: Laboratory Results - last 24 hr 08/05/20 Range/Units 20:14 POC Glucose 148 H (83-110) mg/dL Med Orders - Current: Current Medications Acetaminophen (Tylenol) 650 mg PO Q4H PRN PRN Reason: Pain (Mild 1-3)/fever Last Admin: 08/02/20 21:14 Dose: 650 mg Documented by: Al Hydroxide/Mg Hydroxide (Mag-Al Plus) 30 ml PO Q8H PRN PRN Reason: Indigestion Last Admin: 08/05/20 18:53 Dose: 30 ml Documented by: Albuterol (Proventil Neb Soln) 2.5 mg NEB Q2H PRN PRN Reason: Shortness Of Breath/wheezing Last Admin: 07/29/20 05:30 Dose: 2.5 mg Documented by: Albuterol/Ipratropium (Duoneb 3.0-0.5 Mg/3 Ml) 3 ml NEB Q4H PRN PRN Reason: Shortness Of Breath/wheezing Aspirin (Halfprin) 81 mg PO DAILY [facility] Last Admin: 08/06/20 09:40 Dose: 81 mg Documented by: Benzocaine/Menthol (Cepacol Sore Throat) 1 lozenge MUCMEM Q2H PRN PRN Reason: Sore Throat Last Admin: 08/04/20 05:36 Dose: 1 lozenge Documented by: Benzonatate (Tessalon Perles) 100 mg PO TID PRN PRN Reason: COUGH Last Admin: 08/05/20 20:17 Dose: 100 mg Documented by: Cholecalciferol (Vitamin D3) 5,000 unit PO DAILY [facility] Last Admin: 08/06/20 09:40 Dose: 5,000 unit Documented by: Enoxaparin Sodium (Lovenox) 40 mg SUBCUT BID [facility] Last Admin: 08/06/20 09:40 Dose: 40 mg Documented by: Guaifenesin/Codeine Phosphate (Robitussin Ac) 5 ml PO Q4H PRN PRN Reason: Cough Last Admin: 08/04/20 21:40 Dose: 5 ml Documented by: Guaifenesin/Phenylephrine HCl (Robitussin Dm) 10 ml PO Q4H PRN PRN Reason: Cough Last Admin: 08/05/20 18:54 Dose: 10 ml Documented by: Levothyroxine Sodium (Synthroid) 88 mcg PO DAILY [facility] Last Admin: 08/06/20 09:41 Dose: 88 mcg Documented by: Ondansetron HCl (Zofran) 4 mg IV Q4H PRN PRN Reason: Nausea/Vomiting Simethicone (Simethicone) 80 mg PO Q6H PRN PRN Reason: Gas pains Sodium Chloride (Saline Flush) 10 ml FLUSH ONARRIVE [facility] Last Admin: 07/27/20 21:43 Dose: 10 ml Documented by: Zinc Sulfate (Zincate) 220 mg PO DAILY [facility] Last Admin: 08/06/20 09:41 Dose: 220 mg Documented by: Discontinued Medications Azithromycin (Zithromax) 500 mg PO DAILY [facility] Stop: 12/19/20 09:01 Last Admin: 07/30/20 09:20 Dose: 500 mg Documented by: Benzonatate (Tessalon Perles) 100 mg PO TID PRN PRN Reason: Cough Last Admin: 07/30/20 11:35 Dose: 100 mg Documented by: Dexamethasone (Decadron) 6 mg IVPUSH ONETIME STA Stop: 07/27/20 22:03 Last Admin: 07/27/20 22:14 Dose: 6 mg Documented by: Dexamethasone (Dexamethasone) 6 mg PO BEDTIME [facility] Stop: 08/05/20 21:01 Last Admin: 08/05/20 20:16 Dose: 6 mg Documented by: Enoxaparin Sodium (Lovenox) 40 mg SUBCUT DAILY [facility] Last Admin: 07/28/20 08:33 Dose: 40 mg Documented by: Sodium Chloride (Normal Saline) 1,000 mls @ 100 mls/hr IV ASDIRECTED [facility]IL[facility] Stop: 07/29/20 00:03 Last Admin: 07/27/20 20:50 Dose: 100 mls/hr Documented by: Sodium Chloride (Normal Saline) 100 mls @ 60 mls/min IV ASDIRECTED [facility] Last Admin: 07/27/20 21:43 Dose: 60 mls/min Documented by: Remdesivir 200 mg/ Sodium (Chloride) 250 mls @ 250 mls/hr IV ONETIME ONE Stop: 07/27/20 22:45 Last Admin: 07/28/20 00:00 Dose: 250 mls/hr Documented by: Remdesivir 100 mg/ Sodium (Chloride) 100 mls @ 100 mls/hr IV Q24H [facility]IL[facility] Stop: 07/31/20 22:59 Last Admin: 07/31/20 21:50 Dose: 100 mls/hr Documented by: Ceftriaxone Sodium 2 gm/ (Sodium Chloride) 100 mls @ 200 mls/hr IV Q24H [facility]IL[facility] Stop: 08/01/20 09:59 Last Admin: 08/01/20 08:57 Dose: 200 mls/hr Documented by: Iopamidol (Isovue-370 (76%)) 100 ml IVPUSH ONETIME ONE Stop: 07/27/20 20:54 Last Admin: 07/27/20 21:43 Dose: 100 ml Documented by: Non-Formulary Medication (Nf Drug) 1 each PO DAILY [facility] Last Admin: 07/30/20 14:02 Dose: Not Given Documented by: Potassium Chloride (Klor-Con M20) 40 meq PO ONETIME ONE Stop: 07/27/20 22:47 Last Admin: 07/28/20 00:18 Dose: 40 meq Documented by: - Exam Quality Assessment: Supplemental Oxygen, DVT Prophylaxis General: Alert, Oriented, Cooperative, No Acute Distress HEENT: Pupils Equal, Pupils Reactive, EOMI, Mucous Membr. Moist/[place] Neck: Supple, Trachea Midline Lungs: Clear to Auscultation, Normal Respiratory Effort Cardiovascular: Regular Rate, Regular Rhythm GI/Abdominal Exam: Normal Bowel Sounds, Soft, Non-Tender, No Distention (Female) Exam: Deferred Back Exam: Normal Inspection, Full Range of Motion Extremities: Normal Inspection, No Pedal Edema Skin: Warm, Dry, Intact Neurological: No New Focal Deficit Psy/Mental Status: Alert, Normal Affect, Normal Mood Sepsis Event Note - Evaluation Sepsis Screening Result: No Definite Risk - Focused Exam Vital Signs: Vital Signs Temp Pulse Resp BP Pulse Ox 08/06/20 08:13 145/79 H 08/06/20 07:40 36.8 C 49 L 18 112/49 L 94 L 08/06/20 05:38 36.6 C 58 L 18 107/58 L 94 L 08/06/20 00:00 94 L 08/05/20 22:59 18 - Problem List & Annotations (1) Acute respiratory failure due to COVID-19 SNOMED Code(s): 537450306 Code(s): U07.1 - COVID-19; J96.00 - ACUTE RESPIRATORY FAILURE, UNSP W HYPOXIA OR HYPERCAPNIA Status: Acute Priority: High Current Visit: Yes (2) Hypertension SNOMED Code(s): 06006068 Code(s): I10 - ESSENTIAL (PRIMARY) HYPERTENSION Status: Chronic Priority: Medium Current Visit: No Qualifiers: Hypertension type: unspecified Qualified Code(s): I10 - Essential (primary) hypertension - Problem List Review Problem List Initiated/Reviewed/Updated: Yes - My Orders Last 24 Hours: My Active Orders 08/05/20 18:42 Alum Hydrox/Mag Hydrox/Simeth [Mag-Al Plus] 30 ml PO Q8H PRN - Assessment Assessment:: Assessment - Day of admission 07/28/2020 (admitted overnight 07/27/2020): * 80 yo female who presents to ED with SOB, Fatigue, cough, and body aches * Denies fever, diarrhea, nausea/vomiting * hospitalized for COVID-19 after testing positive on 07/23/2020 * Oxygen saturations of 81% on room air in ED, 96% on 2L * 12-Lead EGK: NSR at 89 BPM with no signs of ischemia * CXR in ED: Bilateral hazy infiltrates, worse on right than on left * CTA in ED: Limited pulmonary arterial visualization, No evidence of central PE, Consider PAH, Diffuse pulmonary parenchymal abnormality Bilateral renal calculi * Labs: * WBC 9.32 * Hgb 14.0 * Plt 212 * D-dimer 2.59 * Sodium 133 * Potassium 3.3 * GFR >60 * Bilirubin 0.7 * AST 128, ALT 87, Alk phos 60 * Troponin 0.025 * Albumin 3.1 * Lactic acid 2.0 * Magnesium 2.0 * Pro-BNP 376 * ABG: pH 7.42, PCO2 37.6, PO2 55, HCO3 23.9, oxygen saturation 88.4 base excess 0.1, A-a gradient 48, on room air * TSH 0.897 * Influenza A and B - Negative * SARS-CoV-2 - positive * MRSA - negative * Admitted to [facility] for treatment of COVID-19, Hypokalemia, Hyponatremia, Hypoxia. 07/29/2020: * Remains on 2L oxygen (improved) * Continues to utilize acapella/IS * Denies any new complaints * Labs * D-dimer improved to 1.82 * WBC 10.49 (steroid?) * Sodium 138 * Potassium 4.5 * Glucose 160 * A1C 6.3 * AST 60, ALT 73, Alk Phos 51 * CRP 17.0 * Albumin 2.0 * Vitamin D 30.1 * Continue current treatment plan * Repots she feels better * Continued cough but non-productive 07/30/2020: * Continue current treatment * She remains on 2L oxygen * Rocephin 3/ and Veklury 2/ day of treatment * Dexamethasone 6 mg po 09/20 * Completed Azithromycin * IS and beside pulmonary exercise * Vitamin D and zinc supplement * May benefit with proning * Encourage to ambulate side her room as many times as she can * PRN decongestant/expectorant * Titrate to come off supplemental O2 * DVT prophylaxis: Lovenox 40 mg subQ BID * Code status: full * LOS > 96 hrs for complete treatment of Veklury 07/31/2020: * Continue current treatment * She remains on 2L oxygen * Rocephin 11/14 and Veklury / day of treatment * Dexamethasone 6 mg po 10/18 * Completed Azithromycin * Encourage to use IS/FV and beside pulmonary exercise * Continue Vitamin D and zinc supplement * May benefit with proning * Encourage to ambulate side her room as many times as she can * PRN decongestant/expectorant * Titrate to come off supplemental O2 * DVT prophylaxis: Lovenox 40 mg subQ BID * Code status: full * LOS > 96 hrs for complete treatment of Veklury and hopefully off supplemental O2 08/01/2020 * Continue current treatment * Continues to utilize IS/Acapella * Reports she has been up ambulating but has noticed her endurance is less * Reports she has been trying to prone * On 3.4L o2 - working on weaning * Reports she continues to feel better but has cough * Labs: * WBC 14.87 * Hgb 15.0 * Plt 339,000 * GFR >60 * CRP 4.0 * Albumin 2.7 08/02/2020 * Requiring high flow today - 55L FiO2 of 60 * Continues to utilize IS/Acapella * Coughing frequently * Labs: * WBC 12.45 * Hgb 14.1 * Plt 370 * GFR >60 * D. Dimer 1.29 * CRP 4.2 * Albumin 2.4 * Blood glucose levels have been stable * Continue dexamethasone - day02/18 * [facility] working on placement - patient in agreement to look into [facility] [place] [facility] at discharge 08/03/2020 * Improved high flow today - 40L at FiO2 of 40 * Continues to utilize IS and acapella * Continued cough * Continues to be worried we are upset that we are not happy with how long she is proning for - reassured. * Reports frequent belching - likely 2/2 High flow * No labs obtained today * Dexamethasone day 03/21 * [facility] continues to work on placement - likely [facility] at discharge. 08/04/2020 * Worsening High flow today 45L with FiO2 of 50 * Continues to utilize acapella and IS * Continues to prone as tolerated * No labs obtained today * Dexamethasone day 9/10 * Patient and accepted at [facility] after discharge * Added PRN simethicone for gas pains 08/05/2020 The patient is a 80-year-old lady who continues with acute respiratory failure due to COVID-19. She is currently on high flow oxygen and this will be continued to help keep her saturations above 92%. The patient also is awaiting placement. She has completed treatment for COVID-19 and I have removed her isolation. The patient will also be kept on her DVT prophylaxis. She has been encouraged to ambulate. The patient is also been advised to utilize incentives parameter. The patient is actively appropriate for discharge once placement is arranged. Repeat laboratory studies have been ordered for the morning. The patient will continue on her current diet as tolerated. 08/06/2020 The patient is a 80-year-old lady who still has acute respiratory failure due to COVID-19 infection. The patient will remain on high flow oxygen to help keep her saturations between 90 and 92%. She has completed treatment for the Covid already. The patient has been encouraged to ambulate. She also be kept on DVT prophylaxis. The patient is to have an appropriate diet as tolerated. Repeat laboratory studies have been ordered. She has also been encouraged to use incentive spirometer. The patient should be appropriate for discharge once placement has been arranged. The patient will need to have her oxygen weaned before transfer. - Plan Plan:: I have seen and evaluated the patient independently of Derrick Ohara PA-C. I have reviewed and agree with the plan of care as outlined by him for this patient. Please see orders.
[2020-08-07] MEDS: Cholecalciferol (Vitamin D3) 5,000 UNIT Cap PO SCH (08:15)
[2020-08-07] MEDS: Levothyroxine 88 MCG Tab PO SCH (08:15)
[2020-08-07] MEDS: Enoxaparin 40 MG/0.4 ML Syringe SUBCUT SCH ×2 (08:15→21:07)
[2020-08-07] MEDS: Zinc Sulfate 220 MG Cap PO SCH (08:15)
[2020-08-07] MEDS: Aspirin 81 MG Tab.EC PO SCH (08:15)
--- NOTE | 2020-08-07 10:13 | PCM.PN ---
- General Info Date of Service: 08/07/20 Admission Dx/Problem (Free Text): Admission Diagnosis/Problem Admission Diagnosis/Problem Hypoxemia, COVID-19 infection Subjective Update: The patient is a 80-year-old lady who was admitted to acute hospitalization for Covid pneumonia on July 28, 2020. The patient still remains on high flow oxygen. She is not complaining of anything. She has been eating adequately. Awaiting placement. Functional Status: Reports: Pain Controlled, Tolerating Diet - Review of Systems General: Reports: Weakness, Fatigue HEENT: Reports: No Symptoms Pulmonary: Reports: Shortness of Breath Cardiovascular: Reports: No Symptoms Gastrointestinal: Reports: No Symptoms Genitourinary: Reports: No Symptoms Musculoskeletal: Reports: No Symptoms Skin: Reports: No Symptoms Neurological: Reports: No Symptoms Psychiatric: Reports: No Symptoms - Patient Data Vitals - Most Recent: Last Vital Signs Temp 36.6 C 08/07/20 08:10 Pulse 67 08/07/20 08:10 Resp 18 08/07/20 08:10 BP 126/62 08/07/20 08:10 Pulse Ox 92 L 08/07/20 08:10 Weight - Most Recent: 89.902 kg I&O - Last 24 Hours: Intake & Output 08/06/20 08/07/20 08/07/20 22:59 06:59 14:59 Intake Total 658 400 Output Total 1150 750 Balance -492 -350 Lab Results Last 24 Hours: Laboratory Results - last 24 hr 08/06/20 Range/Units 22:14 POC Glucose 135 H (83-110) mg/dL Med Orders - Current: Current Medications Acetaminophen (Tylenol) 650 mg PO Q4H PRN PRN Reason: Pain (Mild 1-3)/fever Last Admin: 08/02/20 21:14 Dose: 650 mg Documented by: Al Hydroxide/Mg Hydroxide (Mag-Al Plus) 30 ml PO Q8H PRN PRN Reason: Indigestion Last Admin: 08/05/20 18:53 Dose: 30 ml Documented by: Albuterol (Proventil Neb Soln) 2.5 mg NEB Q2H PRN PRN Reason: Shortness Of Breath/wheezing Last Admin: 07/29/20 05:30 Dose: 2.5 mg Documented by: Albuterol/Ipratropium (Duoneb 3.0-0.5 Mg/3 Ml) 3 ml NEB Q4H PRN PRN Reason: Shortness Of Breath/wheezing Aspirin (Halfprin) 81 mg PO DAILY [facility] Last Admin: 08/07/20 08:15 Dose: 81 mg Documented by: Benzocaine/Menthol (Cepacol Sore Throat) 1 lozenge MUCMEM Q2H PRN PRN Reason: Sore Throat Last Admin: 08/04/20 05:36 Dose: 1 lozenge Documented by: Benzonatate (Tessalon Perles) 100 mg PO TID PRN PRN Reason: COUGH Last Admin: 08/05/20 20:17 Dose: 100 mg Documented by: Cholecalciferol (Vitamin D3) 5,000 unit PO DAILY [facility] Last Admin: 08/07/20 08:15 Dose: 5,000 unit Documented by: Enoxaparin Sodium (Lovenox) 40 mg SUBCUT BID [facility] Last Admin: 08/07/20 08:15 Dose: 40 mg Documented by: Guaifenesin/Codeine Phosphate (Robitussin Ac) 5 ml PO Q4H PRN PRN Reason: Cough Last Admin: 08/04/20 21:40 Dose: 5 ml Documented by: Guaifenesin/Phenylephrine HCl (Robitussin Dm) 10 ml PO Q4H PRN PRN Reason: Cough Last Admin: 08/05/20 18:54 Dose: 10 ml Documented by: Levothyroxine Sodium (Synthroid) 88 mcg PO DAILY [facility] Last Admin: 08/07/20 08:15 Dose: 88 mcg Documented by: Ondansetron HCl (Zofran) 4 mg IV Q4H PRN PRN Reason: Nausea/Vomiting Simethicone (Simethicone) 80 mg PO Q6H PRN PRN Reason: Gas pains Sodium Chloride (Saline Flush) 10 ml FLUSH ONARRIVE [facility] Last Admin: 07/27/20 21:43 Dose: 10 ml Documented by: Zinc Sulfate (Zincate) 220 mg PO DAILY [facility] Last Admin: 08/07/20 08:15 Dose: 220 mg Documented by: Discontinued Medications Azithromycin (Zithromax) 500 mg PO DAILY [facility] Stop: 07/30/20 09:01 Last Admin: 07/30/20 09:20 Dose: 500 mg Documented by: Benzonatate (Tessalon Perles) 100 mg PO TID PRN PRN Reason: Cough Last Admin: 07/30/20 11:35 Dose: 100 mg Documented by: Dexamethasone (Decadron) 6 mg IVPUSH ONETIME STA Stop: 07/27/20 22:03 Last Admin: 07/27/20 22:14 Dose: 6 mg Documented by: Dexamethasone (Dexamethasone) 6 mg PO BEDTIME [facility]IL[facility] Stop: 08/05/20 21:01 Last Admin: 08/05/20 20:16 Dose: 6 mg Documented by: Enoxaparin Sodium (Lovenox) 40 mg SUBCUT DAILY [facility] Last Admin: 07/28/20 08:33 Dose: 40 mg Documented by: Sodium Chloride (Normal Saline) 1,000 mls @ 100 mls/hr IV ASDIRECTED [facility]ILA Stop: 07/29/20 00:03 Last Admin: 07/27/20 20:50 Dose: 100 mls/hr Documented by: Sodium Chloride (Normal Saline) 100 mls @ 60 mls/min IV ASDIRECTED [facility] Last Admin: 07/27/20 21:43 Dose: 60 mls/min Documented by: Remdesivir 200 mg/ Sodium (Chloride) 250 mls @ 250 mls/hr IV ONETIME ONE Stop: 07/27/20 22:45 Last Admin: 07/28/20 00:00 Dose: 250 mls/hr Documented by: Remdesivir 100 mg/ Sodium (Chloride) 100 mls @ 100 mls/hr IV Q24H [facility] Stop: 07/31/20 22:59 Last Admin: 07/31/20 21:50 Dose: 100 mls/hr Documented by: Ceftriaxone Sodium 2 gm/ (Sodium Chloride) 100 mls @ 200 mls/hr IV Q24H [facility] Stop: 08/01/20 09:59 Last Admin: 08/01/20 08:57 Dose: 200 mls/hr Documented by: Iopamidol (Isovue-370 (76%)) 100 ml IVPUSH ONETIME ONE Stop: 07/27/20 20:54 Last Admin: 07/27/20 21:43 Dose: 100 ml Documented by: Non-Formulary Medication (Nf Drug) 1 each PO DAILY [facility] Last Admin: 07/30/20 14:02 Dose: Not Given Documented by: Potassium Chloride (Klor-Con M20) 40 meq PO ONETIME ONE Stop: 07/27/20 22:47 Last Admin: 07/28/20 00:18 Dose: 40 meq Documented by: - Exam Quality Assessment: Supplemental Oxygen General: Alert, Oriented, Cooperative HEENT: Pupils Equal, Pupils Reactive, EOMI, Mucous Membr. Moist/[place] Neck: Supple, Trachea Midline Lungs: Clear to Auscultation, Normal Respiratory Effort Cardiovascular: Regular Rate, Regular Rhythm GI/Abdominal Exam: Normal Bowel Sounds, Soft, Non-Tender, No Distention (Female) Exam: Deferred Back Exam: Normal Inspection, Full Range of Motion Extremities: Normal Inspection, Normal Range of Motion, No Pedal Edema Skin: Warm, Dry, Intact Neurological: No New Focal Deficit Psy/Mental Status: Alert, Normal Affect Sepsis Event Note - Evaluation Sepsis Screening Result: No Definite Risk - Focused Exam Vital Signs: Vital Signs Temp Pulse Resp BP BP Pulse Ox 08/07/20 08:10 36.6 C 67 18 126/62 92 L 08/07/20 05:01 36.6 C 56 L 18 108/50 L 96 - Problem List & Annotations (1) Acute respiratory failure due to COVID-19 SNOMED Code(s): 973023498 Code(s): U07.1 - COVID-19; J96.00 - ACUTE RESPIRATORY FAILURE, UNSP W HYPOXIA OR HYPERCAPNIA Status: Acute Priority: High Current Visit: Yes (2) Hypertension SNOMED Code(s): 53669582 Code(s): I10 - ESSENTIAL (PRIMARY) HYPERTENSION Status: Chronic Priority: Medium Current Visit: No Qualifiers: Hypertension type: unspecified Qualified Code(s): I10 - Essential (primary) hypertension - Problem List Review Problem List Initiated/Reviewed/Updated: Yes - Assessment Assessment:: Assessment - Day of admission 07/28/2020 (admitted overnight 07/27/2020): * 80 yo female who presents to ED with SOB, Fatigue, cough, and body aches * Denies fever, diarrhea, nausea/vomiting * hospitalized for COVID-19 after testing positive on 07/23/2020 * Oxygen saturations of 81% on room air in ED, 96% on 2L * 12-Lead EGK: NSR at 89 BPM with no signs of ischemia * CXR in ED: Bilateral hazy infiltrates, worse on right than on left * CTA in ED: Limited pulmonary arterial visualization, No evidence of central PE, Consider PAH, Diffuse pulmonary parenchymal abnormality Bilateral renal calculi * Labs: * WBC 9.32 * Hgb 14.0 * Plt 212 * D-dimer 2.59 * Sodium 133 * Potassium 3.3 * GFR >60 * Bilirubin 0.7 * AST 128, ALT 87, Alk phos 60 * Troponin 0.025 * Albumin 3.1 * Lactic acid 2.0 * Magnesium 2.0 * Pro-BNP 376 * ABG: pH 7.42, PCO2 37.6, PO2 55, HCO3 23.9, oxygen saturation 88.4 base excess 0.1, A-a gradient 48, on room air * TSH 0.897 * Influenza A and B - Negative * SARS-CoV-2 - positive * MRSA - negative * Admitted to [facility] for treatment of COVID-19, Hypokalemia, Hyponatremia, Hypoxia. 07/29/2020: * Remains on 2L oxygen (improved) * Continues to utilize acapella/IS * Denies any new complaints * Labs * D-dimer improved to 1.82 * WBC 10.49 (steroid?) * Sodium 138 * Potassium 4.5 * Glucose 160 * A1C 6.3 * AST 60, ALT 73, Alk Phos 51 * CRP 17.0 * Albumin 2.0 * Vitamin D 30.1 * Continue current treatment plan * Repots she feels better * Continued cough but non-productive 07/30/2020: * Continue current treatment * She remains on 2L oxygen * Rocephin 3/5 and Veklury 2/ day of treatment * Dexamethasone 6 mg po 09/20 * Completed Azithromycin * IS and beside pulmonary exercise * Vitamin D and zinc supplement * May benefit with proning * Encourage to ambulate side her room as many times as she can * PRN decongestant/expectorant * Titrate to come off supplemental O2 * DVT prophylaxis: Lovenox 40 mg subQ BID * Code status: full * LOS > 96 hrs for complete treatment of Veklury 07/31/2020: * Continue current treatment * She remains on 2L oxygen * Rocephin 4/5 and Veklury 3/4 day of treatment * Dexamethasone 6 mg po 10/18 * Completed Azithromycin * Encourage to use IS/FV and beside pulmonary exercise * Continue Vitamin D and zinc supplement * May benefit with proning * Encourage to ambulate side her room as many times as she can * PRN decongestant/expectorant * Titrate to come off supplemental O2 * DVT prophylaxis: Lovenox 40 mg subQ BID * Code status: full * LOS > 96 hrs for complete treatment of Veklury and hopefully off supplemental O2 08/01/2020 * Continue current treatment * Continues to utilize IS/Acapella * Reports she has been up ambulating but has noticed her endurance is less * Reports she has been trying to prone * On 3.4L o2 - working on weaning * Reports she continues to feel better but has cough * Labs: * WBC 14.87 * Hgb 15.0 * Plt 339,000 * GFR >60 * CRP 4.0 * Albumin 2.7 08/02/2020 * Requiring high flow today - 55L FiO2 of 60 * Continues to utilize IS/Acapella * Coughing frequently * Labs: * WBC 12.45 * Hgb 14.1 * Plt 370 * GFR >60 * D. Dimer 1.29 * CRP 4.2 * Albumin 2.4 * Blood glucose levels have been stable * Continue dexamethasone - day02/18 * SW working on placement - patient in agreement to look into [facility] at discharge 08/03/2020 * Improved high flow today - 40L at FiO2 of 40 * Continues to utilize IS and acapella * Continued cough * Continues to be worried we are upset that we are not happy with how long she is proning for - reassured. * Reports frequent belching - likely 2/2 High flow * No labs obtained today * Dexamethasone day 03/21 * SW continues to work on placement - likely [facility] at discharge. 08/04/2020 * Worsening High flow today 45L with FiO2 of 50 * Continues to utilize acapella and IS * Continues to prone as tolerated * No labs obtained today * Dexamethasone day 04/21 * Patient and accepted at [facility] after discharge * Added PRN simethicone for gas pains 08/05/2020 The patient is a 80-year-old lady who continues with acute respiratory failure due to COVID-19. She is currently on high flow oxygen and this will be continued to help keep her saturations above 92%. The patient also is awaiting placement. She has completed treatment for COVID-19 and I have removed her isolation. The patient will also be kept on her DVT prophylaxis. She has been encouraged to ambulate. The patient is also been advised to utilize incentives parameter. The patient is actively appropriate for discharge once placement is arranged. Repeat laboratory studies have been ordered for the morning. The patient will continue on her current diet as tolerated. 08/06/2020 The patient is a 80-year-old lady who still has acute respiratory failure due to COVID-19 infection. The patient will remain on high flow oxygen to help keep her saturations between 90 and 92%. She has completed treatment for the Covid already. The patient has been encouraged to ambulate. She also be kept on DVT prophylaxis. The patient is to have an appropriate diet as tolerated. Repeat laboratory studies have been ordered. She has also been encouraged to use incentive spirometer. The patient should be appropriate for discharge once placement has been arranged. The patient will need to have her oxygen weaned before transfer. 08/07/2020 The patient is a 80-year-old lady who is currently awaiting placement. She is still on high flow oxygen. Because of this I have ordered a chest x-ray. The patient will remain on oxygen to keep her saturations between 90 and 92%. The patient should also continue with her current diet. She has been encouraged to ambulate. She is on DVT prophylaxis. Repeat laboratory studies have been ordered. The patient should be appropriate for discharge once her oxygen demands have improved significantly and placement has been arranged and a bed is available. - Plan Plan:: I have seen and evaluated the patient independently of Derrick Ohara PA-C. I have reviewed and agree with the plan of care as outlined by him for this patient. Please see orders.
--- NOTE | 2020-08-07 13:21 | CR ---
Chest: Portable view of the chest was obtained. Comparison: Prior chest CT study of 07/27/20 and chest x-ray also performed on 07/27/20. Diffuse parenchymal densities are seen on both sides of the chest. Findings on the left side have worsened from prior exam. Heart size and mediastinum are within normal limits and stable. Bony structures show stable scoliosis. Impression: 1. Worsening parenchymal density on the left side and stable density on the right side. Findings most likely represent diffuse pneumonia. 2. Other findings which are stable as noted above. Diagnostic code #3
[2020-08-07] MEDS: Levofloxacin/Dextrose 5%-Water 500 MG in Premix Bag 1 BAG IV SCH (17:36)
[2020-08-07] MEDS: Acetaminophen 325 MG Tab PO PRN (21:08)
[2020-08-07] MEDS ORDERED: Pantoprazole 40 MG Vial IVPUSH STA (22:05)
[2020-08-07] MEDS ORDERED: Sodium Chloride 0.9% 500 ML IV ONE (22:10)
[2020-08-07] MEDS ORDERED: Sodium Chloride 0.9% 500 ML ONE (22:13)
--- NOTE | 2020-08-08 07:41 | PCM.PN ---
- General Info Date of Service: 08/08/20 Admission Dx/Problem (Free Text): Admission Diagnosis/Problem Admission Diagnosis/Problem Hypoxemia, COVID-19 infection Subjective Update: In to see Yessi. She reportedly had an episode last night that required a rapid response that she had a syncopal episode. Her respiratory status has been worsening. She reports a headache and lightheadedness accompanied with dizziness. She reports that she has had significant headaches in the past. She has been requiring more oxygen and her high flow settings are currently 60 L at 60% FiO2. Her work of breathing has increased however she is also having some difficulty with a high flow due to this high of pressure. She reportedly had a grossly bloody bowel movement and because of this her twice daily Lovenox was stopped. Will order SCDs. Repeat lab draw in a.m. In the meantime we will move her to the ICU for closer monitoring. Hemoglobin had been trending down however repeat was 10.0. She was started on 500 mg IV Levaquin and this will continue as well. Functional Status: Reports: Pain Controlled, Tolerating Diet, Ambulating, Urinating, New Symptoms (dizziness), Incentive Spirometry, Other (acapella ) - Review of Systems General: Reports: No Symptoms, Weakness, Fatigue, Malaise. Denies: Fever, Chills HEENT: Reports: Headaches. Denies: Sore Throat Pulmonary: Reports: No Symptoms, Shortness of Breath, Cough. Denies: Pleuritic Chest Pain, Sputum, Wheezing Cardiovascular: Reports: Dyspnea on Exertion, Lightheadedness. Denies: Chest Pain, Palpitations Gastrointestinal: Reports: No Symptoms. Denies: Abdominal Pain, Constipation, Diarrhea, Nausea, Vomiting Genitourinary: Reports: No Symptoms. Denies: Pain Musculoskeletal: Reports: No Symptoms Skin: Reports: No Symptoms. Denies: Cyanosis Neurological: Reports: No Symptoms. Denies: Confusion, Difficulty Walking, Gait Disturbance Psychiatric: Reports: No Symptoms - Patient Data Vitals - Most Recent: Last Vital Signs Temp 97.9 F 08/08/20 04:21 Pulse 78 08/08/20 04:21 Resp 20 08/08/20 04:21 BP 107/54 L 08/08/20 04:21 Pulse Ox 92 L 08/08/20 06:08 Weight - Most Recent: 198 lb 3.2 oz I&O - Last 24 Hours: Intake & Output 08/07/20 08/08/20 08/08/20 22:59 06:59 14:59 Intake Total 740 1100 Output Total 900 800 Balance -160 300 Lab Results Last 24 Hours: Laboratory Results - last 24 hr 08/07/20 08/07/20 08/07/20 Range/Units 12:08 21:30 22:10 WBC 25.88 H (3.98-10.04) K/mm3 RBC 3.58 L (3.98-5.22) M/mm3 Hgb 10.7 L D (11.2-15.7) gm/dl Hct 33.4 L (34.1-44.9) % MCV 93.3 (79.4-94.8) fl MCH 29.9 (25.6-32.2) pg MCHC 32.0 L (32.2-35.5) g/dl RDW Std Deviation 46.5 H (36.4-46.3) fL Plt Count 278 (182-369) K/mm3 MPV 10.7 (9.4-12.3) fl Neut % (Auto) 79.8 H (34.0-71.1) % Lymph % (Auto) 10.7 L (19.3-51.7) % Foard % (Auto) 7.2 (4.7-12.5) % Eos % (Auto) 0 L (0.7-5.8) Baso % (Auto) 0.1 (0.1-1.2) % Neut # (Auto) 20.64 H (1.56-6.13) K/mm3 Lymph # (Auto) 2.77 (1.18-3.74) K/mm3 Foard # (Auto) 1.86 H (0.24-0.36) K/mm3 Eos # (Auto) 0.00 L (0.04-0.36) K/mm3 Baso # (Auto) 0.03 (0.01-0.08) K/mm3 Manual Slide Review Abnormal smear PT (9.7-12.0) SECONDS INR APTT (21.7-31.4) SECONDS Sodium (136-145) mEq/L Potassium (3.5-5.1) mEq/L Chloride (98-107) mEq/L Carbon Dioxide (21-32) mEq/L Anion Gap (5-15) BUN (7-18) mg/dL Creatinine (0.55-1.02) mg/dL Est Cr Clr Drug Dosing mL/min Estimated GFR (MDRD) (>60) mL/min BUN/Creatinine Ratio (14-18) Glucose (83-115) mg/dL POC Glucose 118 H 190 H (83-110) mg/dL Calcium (8.5-10.1) mg/dL Total Bilirubin (0.2-1.0) mg/dL AST (15-37) U/L ALT (14-59) U/L Alkaline Phosphatase (46-116) U/L Total Protein (6.4-8.2) g/dl Albumin (3.4-5.0) g/dl Globulin gm/dL Albumin/Globulin Ratio (1-2) 08/07/20 08/07/20 08/08/20 Range/Units 22:10 22:10 06:11 WBC 19.60 H (3.98-10.04) K/mm3 RBC 3.25 L (3.98-5.22) M/mm3 Hgb 9.5 L (11.2-15.7) gm/dl Hct 30.1 L (34.1-44.9) % MCV 92.6 (79.4-94.8) fl MCH 29.2 (25.6-32.2) pg MCHC 31.6 L (32.2-35.5) g/dl RDW Std Deviation 46.0 (36.4-46.3) fL Plt Count 228 (182-369) K/mm3 MPV 10.6 (9.4-12.3) fl Neut % (Auto) 85.6 H (34.0-71.1) % Lymph % (Auto) 7.9 L (19.3-51.7) % Foard % (Auto) 4.6 L (4.7-12.5) % Eos % (Auto) 0 L (0.7-5.8) Baso % (Auto) 0.1 (0.1-1.2) % Neut # (Auto) 16.78 H (1.56-6.13) K/mm3 Lymph # (Auto) 1.55 (1.18-3.74) K/mm3 Foard # (Auto) 0.91 H (0.24-0.36) K/mm3 Eos # (Auto) 0.00 L (0.04-0.36) K/mm3 Baso # (Auto) 0.01 (0.01-0.08) K/mm3 Manual Slide Review Abnormal smear PT 11.3 (9.7-12.0) SECONDS INR 1.06 APTT < 20.0 L (21.7-31.4) SECONDS Sodium 137 (136-145) mEq/L Potassium 4.3 (3.5-5.1) mEq/L Chloride 103 (98-107) mEq/L Carbon Dioxide 23 (21-32) mEq/L Anion Gap 15.3 H (5-15) BUN 67 H D (7-18) mg/dL Creatinine 1.1 H (0.55-1.02) mg/dL Est Cr Clr Drug Dosing 36.07 mL/min Estimated GFR (MDRD) 48 (>60) mL/min BUN/Creatinine Ratio 60.9 H (14-18) Glucose 199 H (83-115) mg/dL POC Glucose (83-110) mg/dL Calcium 8.6 (8.5-10.1) mg/dL Total Bilirubin 0.4 (0.2-1.0) mg/dL AST 12 L (15-37) U/L ALT 28 (14-59) U/L Alkaline Phosphatase 44 L (46-116) U/L Total Protein 5.5 L (6.4-8.2) g/dl Albumin 2.2 L (3.4-5.0) g/dl Globulin 3.3 gm/dL Albumin/Globulin Ratio 0.7 L (1-2) 08/08/20 Range/Units 06:11 WBC (3.98-10.04) K/mm3 RBC (3.98-5.22) M/mm3 Hgb (11.2-15.7) gm/dl Hct (34.1-44.9) % MCV (79.4-94.8) fl MCH (25.6-32.2) pg MCHC (32.2-35.5) g/dl RDW Std Deviation (36.4-46.3) fL Plt Count (182-369) K/mm3 MPV (9.4-12.3) fl Neut % (Auto) (34.0-71.1) % Lymph % (Auto) (19.3-51.7) % Foard % (Auto) (4.7-12.5) % Eos % (Auto) (0.7-5.8) Baso % (Auto) (0.1-1.2) % Neut # (Auto) (1.56-6.13) K/mm3 Lymph # (Auto) (1.18-3.74) K/mm3 Foard # (Auto) (0.24-0.36) K/mm3 Eos # (Auto) (0.04-0.36) K/mm3 Baso # (Auto) (0.01-0.08) K/mm3 Manual Slide Review PT (9.7-12.0) SECONDS INR APTT (21.7-31.4) SECONDS Sodium 139 (136-145) mEq/L Potassium 4.4 (3.5-5.1) mEq/L Chloride 107 (98-107) mEq/L Carbon Dioxide 27 (21-32) mEq/L Anion Gap 9.4 (5-15) BUN 48 H (7-18) mg/dL Creatinine 0.8 (0.55-1.02) mg/dL Est Cr Clr Drug Dosing 49.60 mL/min Estimated GFR (MDRD) > 60 (>60) mL/min BUN/Creatinine Ratio 60.0 H (14-18) Glucose 152 H (83-115) mg/dL POC Glucose (83-110) mg/dL Calcium 8.0 L (8.5-10.1) mg/dL Total Bilirubin (0.2-1.0) mg/dL AST (15-37) U/L ALT (14-59) U/L Alkaline Phosphatase (46-116) U/L Total Protein (6.4-8.2) g/dl Albumin (3.4-5.0) g/dl Globulin gm/dL Albumin/Globulin Ratio (1-2) Sea Results Last 24 Hours: Microbiology 08/07/20 22:04 Stool Occult Blood (SEA) - Final Stool / Feces Med Orders - Current: Current Medications Acetaminophen (Tylenol) 650 mg PO Q4H PRN PRN Reason: Pain (Mild 1-3)/fever Last Admin: 08/07/20 21:08 Dose: 650 mg Documented by: Al Hydroxide/Mg Hydroxide (Mag-Al Plus) 30 ml PO Q8H PRN PRN Reason: Indigestion Last Admin: 08/05/20 18:53 Dose: 30 ml Documented by: Albuterol (Proventil Neb Soln) 2.5 mg NEB Q2H PRN PRN Reason: Shortness Of Breath/wheezing Last Admin: 07/29/20 05:30 Dose: 2.5 mg Documented by: Albuterol/Ipratropium (Duoneb 3.0-0.5 Mg/3 Ml) 3 ml NEB Q4H PRN PRN Reason: Shortness Of Breath/wheezing Benzocaine/Menthol (Cepacol Sore Throat) 1 lozenge MUCMEM Q2H PRN PRN Reason: Sore Throat Last Admin: 08/04/20 05:36 Dose: 1 lozenge Documented by: Benzonatate (Tessalon Perles) 100 mg PO TID PRN PRN Reason: COUGH Last Admin: 08/05/20 20:17 Dose: 100 mg Documented by: Cholecalciferol (Vitamin D3) 5,000 unit PO DAILY [facility] Last Admin: 08/07/20 08:15 Dose: 5,000 unit Documented by: Guaifenesin/Codeine Phosphate (Robitussin Ac) 5 ml PO Q4H PRN PRN Reason: Cough Last Admin: 08/04/20 21:40 Dose: 5 ml Documented by: Guaifenesin/Phenylephrine HCl (Robitussin Dm) 10 ml PO Q4H PRN PRN Reason: Cough Last Admin: 08/05/20 18:54 Dose: 10 ml Documented by: Levofloxacin/Dextrose 500 mg/ (Premix) 100 mls @ 100 mls/hr IV Q24H [facility] Last Admin: 08/07/20 17:36 Dose: 100 mls/hr Documented by: Levothyroxine Sodium (Synthroid) 88 mcg PO DAILY [facility] Last Admin: 08/07/20 08:15 Dose: 88 mcg Documented by: Ondansetron HCl (Zofran) 4 mg IV Q4H PRN PRN Reason: Nausea/Vomiting Pantoprazole Sodium (Protonix Iv) 40 mg IVPUSH Q12H [facility] Simethicone (Simethicone) 80 mg PO Q6H PRN PRN Reason: Gas pains Last Admin: 08/07/20 21:08 Dose: 80 mg Documented by: Sodium Chloride (Saline Flush) 10 ml FLUSH ONARRIVE [facility] Last Admin: 07/27/20 21:43 Dose: 10 ml Documented by: Zinc Sulfate (Zincate) 220 mg PO DAILY [facility] Last Admin: 08/07/20 08:15 Dose: 220 mg Documented by: Discontinued Medications Aspirin (Halfprin) 81 mg PO DAILY [facility] Last Admin: 08/07/20 08:15 Dose: 81 mg Documented by: Azithromycin (Zithromax) 500 mg PO DAILY [facility] Stop: 07/30/20 09:01 Last Admin: 07/30/20 09:20 Dose: 500 mg Documented by: Benzonatate (Tessalon Perles) 100 mg PO TID PRN PRN Reason: Cough Last Admin: 07/30/20 11:35 Dose: 100 mg Documented by: Dexamethasone (Decadron) 6 mg IVPUSH ONETIME [facility] Stop: 07/27/20 22:03 Last Admin: 07/27/20 22:14 Dose: 6 mg Documented by: Dexamethasone (Dexamethasone) 6 mg PO BEDTIME [facility] Stop: 08/05/20 21:01 Last Admin: 08/05/20 20:16 Dose: 6 mg Documented by: Enoxaparin Sodium (Lovenox) 40 mg SUBCUT DAILY [facility] Last Admin: 07/28/20 08:33 Dose: 40 mg Documented by: Enoxaparin Sodium (Lovenox) 40 mg SUBCUT BID [facility] Last Admin: 08/07/20 21:07 Dose: 40 mg Documented by: Sodium Chloride (Normal Saline) 1,000 mls @ 100 mls/hr IV ASDIRECTED [facility] Stop: 07/29/20 00:03 Last Admin: 07/27/20 20:50 Dose: 100 mls/hr Documented by: Sodium Chloride (Normal Saline) 100 mls @ 60 mls/min IV ASDIRECTED [facility] Last Admin: 07/27/20 21:43 Dose: 60 mls/min Documented by: Remdesivir 200 mg/ Sodium (Chloride) 250 mls @ 250 mls/hr IV ONETIME [facility] Stop: 07/27/20 22:45 Last Admin: 07/28/20 00:00 Dose: 250 mls/hr Documented by: Remdesivir 100 mg/ Sodium (Chloride) 100 mls @ 100 mls/hr IV Q24H [facility] Stop: 07/31/20 22:59 Last Admin: 07/31/20 21:50 Dose: 100 mls/hr Documented by: Ceftriaxone Sodium 2 gm/ (Sodium Chloride) 100 mls @ 200 mls/hr IV Q24H [facility] Stop: 08/01/20 09:59 Last Admin: 08/01/20 08:57 Dose: 200 mls/hr Documented by: Sodium Chloride (Normal Saline) 500 mls @ 500 mls/hr IV ONETIME ONE Stop: 08/07/20 23:09 Last Admin: 08/07/20 22:15 Dose: 500 mls/hr Documented by: Sodium Chloride (Normal Saline) Confirm Administered Dose 500 mls @ as directed .ROUTE .STK-MED ONE Stop: 08/07/20 22:14 Last Admin: 08/07/20 22:24 Dose: Not Given Documented by: Iopamidol (Isovue-370 (76%)) 100 ml IVPUSH ONETIME ONE Stop: 07/27/20 20:54 Last Admin: 07/27/20 21:43 Dose: 100 ml Documented by: Non-Formulary Medication (Nf Drug) 1 each PO DAILY [facility] Last Admin: 07/30/20 14:02 Dose: Not Given Documented by: Pantoprazole Sodium (Protonix Iv) 80 mg IVPUSH [facility] Stop: 08/07/20 22:06 Last Admin: 08/07/20 22:19 Dose: 80 mg Documented by: Potassium Chloride (Klor-Con M20) 40 meq PO ONETIME ONE Stop: 07/27/20 22:47 Last Admin: 07/28/20 00:18 Dose: 40 meq Documented by: - Exam Quality Assessment: Supplemental Oxygen (High flow 60L and 60% FiO2 ), DVT Prophylaxis. No: Urine Catheter General: Alert, Oriented, Cooperative, Mild Distress HEENT: Pupils Equal, Pupils Reactive, Mucous Membr. Moist/[place] Neck: Supple, Trachea Midline Lungs: Normal Respiratory Effort, Decreased Breath Sounds Cardiovascular: Regular Rate, Regular Rhythm GI/Abdominal Exam: Normal Bowel Sounds, Soft, Non-Tender, No Distention (Female) Exam: Deferred Back Exam: Normal Inspection, Full Range of Motion Extremities: Normal Inspection, Normal Range of Motion, Non-Tender, No Pedal Edema, Normal Capillary Refill Skin: Warm, Dry, Intact, Other ([place]) Neurological: No New Focal Deficit Psy/Mental Status: Alert Sepsis Event Note - Evaluation Sepsis Screening Result: No Definite Risk - Focused Exam Vital Signs: Vital Signs Temp Temp Pulse Pulse Resp BP BP 08/08/20 06:08 08/08/20 04:21 97.9 F 78 20 107/54 L 08/08/20 01:29 78 22 H 102/50 L 08/07/20 23:11 80 22 H 99/54 L 08/07/20 22:30 90 90 24 H 99/55 L 99/55 L 08/07/20 22:03 97.2 F 98 24 H 105/56 L 105/56 L 08/07/20 22:00 08/07/20 21:34 08/07/20 21:08 100 22 H 08/07/20 20:21 97.5 F 08/07/20 19:46 115 H 24 H 119/59 L Pulse Ox Pulse Ox 08/08/20 06:08 92 L 08/08/20 04:21 95 08/08/20 01:29 97 08/07/20 23:11 08/07/20 22:30 96 08/07/20 22:03 96 08/07/20 22:00 95 08/07/20 21:34 98 08/07/20 21:08 97 08/07/20 20:21 08/07/20 19:46 95 - Problem List & Annotations (1) COVID-19 SNOMED Code(s): 626433965 Code(s): U07.1 - COVID-19 Status: Acute Priority: High Current Visit: Yes (2) Hypoxia SNOMED Code(s): 796663722 Code(s): R09.02 - HYPOXEMIA Status: Acute Priority: High Current Visit: Yes (3) Hypokalemia SNOMED Code(s): 56969322 Code(s): E87.6 - HYPOKALEMIA Status: Acute Priority: High Current Visit: Yes (4) Elevated d-dimer SNOMED Code(s): 374791140 Code(s): R79.89 - OTHER SPECIFIED ABNORMAL FINDINGS OF BLOOD CHEMISTRY Status: Acute Priority: High Current Visit: Yes (5) Hypothyroidism SNOMED Code(s): 38079312 Code(s): E03.9 - HYPOTHYROIDISM, UNSPECIFIED Status: Chronic Priority: Low Current Visit: No Qualifiers: Hypothyroidism type: unspecified Qualified Code(s): E03.9 - Hypothyroidism, unspecified (6) Hypertension SNOMED Code(s): 52829770 Code(s): I10 - ESSENTIAL (PRIMARY) HYPERTENSION Status: Chronic Priority: Medium Current Visit: No Qualifiers: Hypertension type: unspecified Qualified Code(s): I10 - Essential (primary) hypertension (7) Hyponatremia SNOMED Code(s): 83176502 Code(s): E87.1 - HYPO-OSMOLALITY AND HYPONATREMIA Status: Acute Current Visit: Yes (8) Transaminitis SNOMED Code(s): 252807788, 418584322 Code(s): R74.01 - ELEVATION OF LEVELS OF LIVER TRANSAMINASE LEVELS Status: Acute Current Visit: Yes (9) Obesity (BMI 30.0-34.9) SNOMED Code(s): 469809194899832 Code(s): E66.9 - OBESITY, UNSPECIFIED Status: Chronic Priority: Medium Current Visit: Yes (10) Hyperglycemia SNOMED Code(s): 24741271 Code(s): R73.9 - HYPERGLYCEMIA, UNSPECIFIED Status: Acute Priority: High Current Visit: Yes (11) GI bleed SNOMED Code(s): 61225658 Code(s): K92.2 - GASTROINTESTINAL HEMORRHAGE, UNSPECIFIED Status: Acute Priority: High Current Visit: Yes Qualifiers: GI bleed type/associated pathology: unspecified gastrointestinal hemorrhage type Qualified Code(s): K92.2 - Gastrointestinal hemorrhage, unspecified (12) Hypotension SNOMED Code(s): 44316272 Code(s): I95.9 - HYPOTENSION, UNSPECIFIED Status: Acute Priority: High Current Visit: Yes Qualifiers: Hypotension type: unspecified hypotension type Qualified Code(s): I95.9 - Hypotension, unspecified - Problem List Review Problem List Initiated/Reviewed/Updated: Yes - My Orders Last 24 Hours: My Active Orders 08/08/20 09:00 Pantoprazole [ProTONIX IV] 40 mg IVPUSH Q12H - Assessment Assessment:: Assessment - Day of admission 07/28/2020 (admitted overnight 07/27/2020): * 80 yo female who presents to ED with SOB, Fatigue, cough, and body aches * Denies fever, diarrhea, nausea/vomiting * hospitalized for COVID-19 after testing positive on 07/23/2020 * Oxygen saturations of 81% on room air in ED, 96% on 2L * 12-Lead EGK: NSR at 89 BPM with no signs of ischemia * CXR in ED: Bilateral hazy infiltrates, worse on right than on left * CTA in ED: Limited pulmonary arterial visualization, No evidence of central PE, Consider PAH, Diffuse pulmonary parenchymal abnormality Bilateral renal calculi * Labs: * WBC 9.32 * Hgb 14.0 * Plt 212 * D-dimer 2.59 * Sodium 133 * Potassium 3.3 * GFR >60 * Bilirubin 0.7 * AST 128, ALT 87, Alk phos 60 * Troponin 0.025 * Albumin 3.1 * Lactic acid 2.0 * Magnesium 2.0 * Pro-BNP 376 * ABG: pH 7.42, PCO2 37.6, PO2 55, HCO3 23.9, oxygen saturation 88.4 base excess 0.1, A-a gradient 48, on room air * TSH 0.897 * Influenza A and B - Negative * SARS-CoV-2 - positive * MRSA - negative * Admitted to [facility] for treatment of COVID-19, Hypokalemia, Hyponatremia, Hypoxia. 07/29/2020: * Remains on 2L oxygen (improved) * Continues to utilize acapella/IS * Denies any new complaints * Labs * D-dimer improved to 1.82 * WBC 10.49 (steroid?) * Sodium 138 * Potassium 4.5 * Glucose 160 * A1C 6.3 * AST 60, ALT 73, Alk Phos 51 * CRP 17.0 * Albumin 2.0 * Vitamin D 30.1 * Continue current treatment plan * Repots she feels better * Continued cough but non-productive 07/30/2020: * Continue current treatment * She remains on 2L oxygen * Rocephin 3/ and Veklury 2/ day of treatment * Dexamethasone 6 mg po 09/20 * Completed Azithromycin * IS and beside pulmonary exercise * Vitamin D and zinc supplement * May benefit with proning * Encourage to ambulate side her room as many times as she can * PRN decongestant/expectorant * Titrate to come off supplemental O2 * DVT prophylaxis: Lovenox 40 mg subQ BID * Code status: full * LOS > 96 hrs for complete treatment of Veklury 07/31/2020: * Continue current treatment * She remains on 2L oxygen * Rocephin 11/14 and Veklury / day of treatment * Dexamethasone 6 mg po 10/18 * Completed Azithromycin * Encourage to use IS/FV and beside pulmonary exercise * Continue Vitamin D and zinc supplement * May benefit with proning * Encourage to ambulate side her room as many times as she can * PRN decongestant/expectorant * Titrate to come off supplemental O2 * DVT prophylaxis: Lovenox 40 mg subQ BID * Code status: full * LOS > 96 hrs for complete treatment of Veklury and hopefully off supplemental O2 08/01/2020 * Continue current treatment * Continues to utilize IS/Acapella * Reports she has been up ambulating but has noticed her endurance is less * Reports she has been trying to prone * On 3.4L o2 - working on weaning * Reports she continues to feel better but has cough * Labs: * WBC 14.87 * Hgb 15.0 * Plt 339,000 * GFR >60 * CRP 4.0 * Albumin 2.7 08/02/2020 * Requiring high flow today - 55L FiO2 of 60 * Continues to utilize IS/Acapella * Coughing frequently * Labs: * WBC 12.45 * Hgb 14.1 * Plt 370 * GFR >60 * D. Dimer 1.29 * CRP 4.2 * Albumin 2.4 * Blood glucose levels have been stable * Continue dexamethasone - day02/18 * SW working on placement - patient in agreement to look into [facility] at discharge 08/03/2020 * Improved high flow today - 40L at FiO2 of 40 * Continues to utilize IS and acapella * Continued cough * Continues to be worried we are upset that we are not happy with how long she is proning for - reassured. * Reports frequent belching - likely 2/2 High flow * No labs obtained today * Dexamethasone day 03/21 * SW continues to work on placement - likely [facility] at discharge. 08/04/2020 * Worsening High flow today 45L with FiO2 of 50 * Continues to utilize acapella and IS * Continues to prone as tolerated * No labs obtained today * Dexamethasone day 04/21 * Patient and accepted at [facility] after discharge * Added PRN simethicone for gas pains 08/05/2020 The patient is a 80-year-old lady who continues with acute respiratory failure due to COVID-19. She is currently on high flow oxygen and this will be continued to help keep her saturations above 92%. The patient also is awaiting placement. She has completed treatment for COVID-19 and I have removed her isolation. The patient will also be kept on her DVT prophylaxis. She has been encouraged to ambulate. The patient is also been advised to utilize incentives parameter. The patient is actively appropriate for discharge once placement is arranged. Repeat laboratory studies have been ordered for the morning. The patient will continue on her current diet as tolerated. 08/06/2020 The patient is a 80-year-old lady who still has acute respiratory failure due to COVID-19 infection. The patient will remain on high flow oxygen to help keep her saturations between 90 and 92%. She has completed treatment for the Covid already. The patient has been encouraged to ambulate. She also be kept on DVT prophylaxis. The patient is to have an appropriate diet as tolerated. Repeat laboratory studies have been ordered. She has also been encouraged to use incentive spirometer. The patient should be appropriate for discharge once placement has been arranged. The patient will need to have her oxygen weaned before transfer. 08/07/2020 The patient is a 80-year-old lady who is currently awaiting placement. She is still on high flow oxygen. Because of this I have ordered a chest x-ray. The patient will remain on oxygen to keep her saturations between 90 and 92%. The patient should also continue with her current diet. She has been encouraged to ambulate. She is on DVT prophylaxis. Repeat laboratory studies have been ordered. The patient should be appropriate for discharge once her oxygen demands have improved significantly and placement has been arranged and a bed is available. 08/08/2020 * Respiratory status worsening * On High Flow at 60L with 60% FiO2. * Stopped BID Lovenox due to nursing reporting frankly bloody stools * Positive occult stool * Given Protonix drip initially - changed to BID IVP Protonix * H/H trend: 15.0-->14.1-->13.8-->10.7-->9.5-->10.0 * Patient upgraded to ICU for closer monitoring * Labs: * WBC 19.60 * Hgb 10.0 * Hct 31.7 * Plt 228 * Sodium 139 * Potassium 4.4 * BUN 48 * Creatinin 0.8 * GFR >60 * ABG obtained in the left radial pH 7.47, PCO2 33.3, PO2 85, HCO3 23.7, O2 saturation 97.0, A-a gradient 301. Obtained while on high flow 60 L 60 FiO2. * Monitor need for intubation * Hypotensive with BP of 82/69 * 500mL IV fluid bolus given * Caution with IV fluids given COVID-19 status * Continue Airborn/Droplet isolation - Plan Plan:: COVID-19 Infection Viral Pneumonitis/Atypical Pneumonia Hypoxia, on 2L NC Elevated d-dimer, CTA negative for PE Transaminitis, improving Class I Obese * Completed remdesivir, azithromycin, Dexamethasone and Rocephin * Started on levaquin due to increasing need for O2, Leukocytosis, and possible PNA * O2 as needed; titrate when able * Attempt to wean off of High flow O2 * RT/IS/Acapella * Continue zinc and vit d supplement * Airborne and contact isolation * Continue daily 81 mg ASA * Lovenox discontinued * Encourage ambulation around room * Encourage proning * Monitor daily labs * Check D-dimer Q48H * Telemetry/continuous pulse oximeter * PT consultation * CM/SW GI Bleed Hypotension * Stop BID Lovenox * General surgery consultation * Monitor H/H * Positive occult * Given Protonix drip initially - change to BID IVP Protonix * 500ml fluid bolus given Hyperglycemia without diagnosis of DM or Glucose Intolerance, mild * Likely 2/2 steroid administration * Monitor blood glucose AM/PM * Check A1C 6.30-meets criteria for pre-diabetes * Monitor need for insulin Hypokalemia, resolved Hyponatremia, resolved * Model Builder consult * Monitor labs Hypothyroidism Hypertension * Continue home Levothyroxine * Hold home HCTZ * TSH WNL * Monitor vital signs Q8H PCP: Dr. Mars Code status: Full Code DVT prophylaxis: Lovenox Social: Patient lives with in [place]. is admitted to [facility] unit for COVID-19 as well. She reports neither her nor her drive and they often get rides around town by [employer] members. Disposition: Patient admitted for treatment of COVID-19, Hypoxia, and electrolyte abnormalities. LOS >96 hrs to complete treatment for COVID-19.
[2020-08-08] MEDS: Zinc Sulfate 220 MG Cap PO SCH (08:34)
[2020-08-08] MEDS: Cholecalciferol (Vitamin D3) 5,000 UNIT Cap PO SCH (08:34)
[2020-08-08] MEDS: Levothyroxine 88 MCG Tab PO SCH (08:34)
[2020-08-08] MEDS: Pantoprazole 40 MG Vial IVPUSH SCH ×2 (08:36→20:35)
[2020-08-08] MEDS ORDERED: Sodium Chloride 0.9% 500 ML IV ONE (11:49)
[2020-08-08] MEDS: Levofloxacin/Dextrose 5%-Water 500 MG in Premix Bag 1 BAG IV SCH (15:18)
[2020-08-08] MEDS ORDERED: diphenhydrAMINE 50 MG/ML SDV IVPUSH ONE (15:45)
[2020-08-08] MEDS: methylPREDNISolone Sodium Succinate 40 MG/1 ML SDV IVPUSH SCH ×2 (16:51→23:43)
[2020-08-08] MEDS: Cefepime 2 GM in Premix Bag 1 BAG IV SCH (16:51)
[2020-08-08] MEDS ORDERED: Vancomycin 1 GM, Vancomycin 500 MG in Sodium Chloride 0.9% 500 ML IV ONE (17:00)
[2020-08-09] MEDS: Cefepime 2 GM in Premix Bag 1 BAG IV SCH ×2 (03:31→16:01)
--- NOTE | 2020-08-09 07:42 | PCM.PN ---
- General Info Date of Service: 08/09/20 Admission Dx/Problem (Free Text): Admission Diagnosis/Problem Admission Diagnosis/Problem Hypoxemia, COVID-19 infection Subjective Update: In to see Yessi. She is sitting up in bed and looks much better clinically than she did the day prior. Suspect her issues were related to allergic reaction to Levaquin. We will continue IV push steroids but decrease dosing tonight. Continue to attempt to wean off high flow. Likely downgrade out of ICU to MedSur status tomorrow pending continued stability. She has not had any bloody bowel movements however her hemoglobin is noted to have dropped to 8. She did receive significant IV fluids due to hypotension. Will recheck H&H this afternoon. Repeat a.m. labs. Functional Status: Reports: Pain Controlled, Tolerating Diet, Ambulating, Urinating, Incentive Spirometry, Other (acapella ). Denies: New Symptoms - Review of Systems General: Reports: Weakness, Fatigue, Malaise. Denies: Fever, Chills HEENT: Denies: Headaches, Sore Throat Pulmonary: Reports: Shortness of Breath. Denies: Pleuritic Chest Pain, Cough, Sputum, Wheezing Cardiovascular: Reports: Dyspnea on Exertion. Denies: Chest Pain, Palpitations, Edema Gastrointestinal: Reports: No Symptoms. Denies: Abdominal Pain, Constipation, Diarrhea, Nausea, Vomiting Genitourinary: Reports: No Symptoms Musculoskeletal: Reports: No Symptoms Skin: Reports: No Symptoms Neurological: Reports: No Symptoms. Denies: Difficulty Walking, Gait Disturbance Psychiatric: Reports: No Symptoms - Patient Data Vitals - Most Recent: Last Vital Signs Temp 97.7 F 08/09/20 03:38 Pulse 76 08/09/20 03:38 Resp 29 H 08/09/20 03:38 BP 118/51 L 08/09/20 03:38 Pulse Ox 94 L 08/09/20 06:27 Weight - Most Recent: 199 lb I&O - Last 24 Hours: Intake & Output 08/08/20 08/09/20 08/09/20 22:59 06:59 14:59 Intake Total 1250 690 Output Total 340 290 Balance 910 400 Lab Results Last 24 Hours: Laboratory Results - last 24 hr 08/08/20 08/08/20 08/08/20 Range/Units 10:53 10:53 13:18 WBC (3.98-10.04) K/mm3 RBC (3.98-5.22) M/mm3 Hgb 10.0 L (11.2-15.7) gm/dl Hct 31.7 L (34.1-44.9) % MCV (79.4-94.8) fl MCH (25.6-32.2) pg MCHC (32.2-35.5) g/dl RDW Std Deviation (36.4-46.3) fL Plt Count (182-369) K/mm3 MPV (9.4-12.3) fl Neut % (Auto) (34.0-71.1) % Lymph % (Auto) (19.3-51.7) % [place] % (Auto) (4.7-12.5) % Eos % (Auto) (0.7-5.8) Baso % (Auto) (0.1-1.2) % Neut # (Auto) (1.56-6.13) K/mm3 Lymph # (Auto) (1.18-3.74) K/mm3 [place] # (Auto) (0.24-0.36) K/mm3 Eos # (Auto) (0.04-0.36) K/mm3 Baso # (Auto) (0.01-0.08) K/mm3 Manual Slide Review D-Dimer, Quantitative (0.19-0.50) mg/L Puncture Site Lt radial ABG pH 7.47 H (7.35-7.45) ABG pCO2 33.3 L (35.0-45.0) mmHg ABG pO2 85.0 (80.0-100.0) mmHg ABG HCO3 23.7 (22.0-26.0) meq/L ABG O2 Saturation 97.0 (96.0-97.0) % ABG Base Excess 0.7 (-2-2.0) A-a Gradient 301 mmHg O2 Delivery Device [place] nasal cannula Oxygen Flow Rate 60.0 FiO2 60.00 (21.00-100.00) % Sodium (136-145) mEq/L Potassium (3.5-5.1) mEq/L Chloride (98-107) mEq/L Carbon Dioxide (21-32) mEq/L Anion Gap (5-15) BUN (7-18) mg/dL Creatinine (0.55-1.02) mg/dL Est Cr Clr Drug Dosing mL/min Estimated GFR (MDRD) (>60) mL/min BUN/Creatinine Ratio (14-18) Glucose (83-115) mg/dL POC Glucose (83-110) mg/dL Calcium (8.5-10.1) mg/dL Phosphorus 3.3 (2.6-4.7) mg/dL Magnesium (1.8-2.4) mg/dl Total Bilirubin (0.2-1.0) mg/dL AST (15-37) U/L ALT (14-59) U/L Alkaline Phosphatase (46-116) U/L C-Reactive Protein (<1.0) mg/dL Total Protein (6.4-8.2) g/dl Albumin (3.4-5.0) g/dl Globulin gm/dL Albumin/Globulin Ratio (1-2) 08/08/20 08/09/20 08/09/20 Range/Units 21:49 04:47 04:47 WBC 21.18 H (3.98-10.04) K/mm3 RBC 2.74 L (3.98-5.22) M/mm3 Hgb 8.2 L D (11.2-15.7) gm/dl Hct 24.9 L (34.1-44.9) % MCV 90.9 (79.4-94.8) fl MCH 29.9 (25.6-32.2) pg MCHC 32.9 (32.2-35.5) g/dl RDW Std Deviation 44.0 (36.4-46.3) fL Plt Count 189 (182-369) K/mm3 MPV 11.0 (9.4-12.3) fl Neut % (Auto) 92.5 H (34.0-71.1) % Lymph % (Auto) 5.6 L (19.3-51.7) % [place] % (Auto) 1.8 L (4.7-12.5) % Eos % (Auto) 0 L (0.7-5.8) Baso % (Auto) 0.1 (0.1-1.2) % Neut # (Auto) 19.60 H (1.56-6.13) K/mm3 Lymph # (Auto) 1.18 (1.18-3.74) K/mm3 [place] # (Auto) 0.38 H (0.24-0.36) K/mm3 Eos # (Auto) 0.00 L (0.04-0.36) K/mm3 Baso # (Auto) 0.02 (0.01-0.08) K/mm3 Manual Slide Review Abnormal smear D-Dimer, Quantitative 1.09 H (0.19-0.50) mg/L Puncture Site ABG pH (7.35-7.45) ABG pCO2 (35.0-45.0) mmHg ABG pO2 (80.0-100.0) mmHg ABG HCO3 (22.0-26.0) meq/L ABG O2 Saturation (96.0-97.0) % ABG Base Excess (-2-2.0) A-a Gradient mmHg O2 Delivery Device Oxygen Flow Rate FiO2 (21.00-100.00) % Sodium (136-145) mEq/L Potassium (3.5-5.1) mEq/L Chloride (98-107) mEq/L Carbon Dioxide (21-32) mEq/L Anion Gap (5-15) BUN (7-18) mg/dL Creatinine (0.55-1.02) mg/dL Est Cr Clr Drug Dosing mL/min Estimated GFR (MDRD) (>60) mL/min BUN/Creatinine Ratio (14-18) Glucose (83-115) mg/dL POC Glucose 147 H (83-110) mg/dL Calcium (8.5-10.1) mg/dL Phosphorus (2.6-4.7) mg/dL Magnesium (1.8-2.4) mg/dl Total Bilirubin (0.2-1.0) mg/dL AST (15-37) U/L ALT (14-59) U/L Alkaline Phosphatase (46-116) U/L C-Reactive Protein (<1.0) mg/dL Total Protein (6.4-8.2) g/dl Albumin (3.4-5.0) g/dl Globulin gm/dL Albumin/Globulin Ratio (1-2) 08/09/ Range/Units 04:47 WBC (3.98-10.04) K/mm3 RBC (3.98-5.22) M/mm3 Hgb (11.2-15.7) gm/dl Hct (34.1-44.9) % MCV (79.4-94.8) fl MCH (25.6-32.2) pg MCHC (32.2-35.5) g/dl RDW Std Deviation (36.4-46.3) fL Plt Count (182-369) K/mm3 MPV (9.4-12.3) fl Neut % (Auto) (34.0-71.1) % Lymph % (Auto) (19.3-51.7) % [place] % (Auto) (4.7-12.5) % Eos % (Auto) (0.7-5.8) Baso % (Auto) (0.1-1.2) % Neut # (Auto) (1.56-6.13) K/mm3 Lymph # (Auto) (1.18-3.74) K/mm3 [place] # (Auto) (0.24-0.36) K/mm3 Eos # (Auto) (0.04-0.36) K/mm3 Baso # (Auto) (0.01-0.08) K/mm3 Manual Slide Review D-Dimer, Quantitative (0.19-0.50) mg/L Puncture Site ABG pH (7.35-7.45) ABG pCO2 (35.0-45.0) mmHg ABG pO2 (80.0-100.0) mmHg ABG HCO3 (22.0-26.0) meq/L ABG O2 Saturation (96.0-97.0) % ABG Base Excess (-2-2.0) A-a Gradient mmHg O2 Delivery Device Oxygen Flow Rate FiO2 (21.00-100.00) % Sodium 138 (136-145) mEq/L Potassium 4.2 (3.5-5.1) mEq/L Chloride 106 (98-107) mEq/L Carbon Dioxide 24 (21-32) mEq/L Anion Gap 12.2 (5-15) BUN 35 H (7-18) mg/dL Creatinine 0.8 (0.55-1.02) mg/dL Est Cr Clr Drug Dosing 49.60 mL/min Estimated GFR (MDRD) > 60 (>60) mL/min BUN/Creatinine Ratio 43.8 H (14-18) Glucose 150 H (83-115) mg/dL POC Glucose (83-110) mg/dL Calcium 7.9 L (8.5-10.1) mg/dL Phosphorus (2.6-4.7) mg/dL Magnesium 2.4 (1.8-2.4) mg/dl Total Bilirubin 0.5 (0.2-1.0) mg/dL AST 17 (15-37) U/L ALT 29 (14-59) U/L Alkaline Phosphatase 35 L (46-116) U/L C-Reactive Protein 0.4 (<1.0) mg/dL Total Protein 5.0 L (6.4-8.2) g/dl Albumin 2.1 L (3.4-5.0) g/dl Globulin 2.9 gm/dL Albumin/Globulin Ratio 0.7 L (1-2) Med Orders - Current: Current Medications Acetaminophen (Tylenol) 650 mg PO Q4H PRN PRN Reason: Pain (Mild 1-3)/fever Last Admin: 08/07/20 21:08 Dose: 650 mg Documented by: Al Hydroxide/Mg Hydroxide (Mag-Al Plus) 30 ml PO Q8H PRN PRN Reason: Indigestion Last Admin: 08/05/20 18:53 Dose: 30 ml Documented by: Albuterol (Proventil Neb Soln) 2.5 mg NEB Q2H PRN PRN Reason: Shortness Of Breath/wheezing Last Admin: 07/29/20 05:30 Dose: 2.5 mg Documented by: Albuterol/Ipratropium (Duoneb 3.0-0.5 Mg/3 Ml) 3 ml NEB Q4H PRN PRN Reason: Shortness Of Breath/wheezing Benzocaine/Menthol (Cepacol Sore Throat) 1 lozenge MUCMEM Q2H PRN PRN Reason: Sore Throat Last Admin: 08/04/20 05:36 Dose: 1 lozenge Documented by: Benzonatate (Tessalon Perles) 100 mg PO TID PRN PRN Reason: COUGH Last Admin: 08/05/20 20:17 Dose: 100 mg Documented by: Cholecalciferol (Vitamin D3) 5,000 unit PO DAILY NAILA Last Admin: 08/08/20 08:34 Dose: 5,000 unit Documented by: Guaifenesin/Codeine Phosphate (Robitussin Ac) 5 ml PO Q4H PRN PRN Reason: Cough Last Admin: 08/04/20 21:40 Dose: 5 ml Documented by: Guaifenesin/Phenylephrine HCl (Robitussin Dm) 10 ml PO Q4H PRN PRN Reason: Cough Last Admin: 08/05/20 18:54 Dose: 10 ml Documented by: Cefepime HCl 2 gm/ Premix 50 mls @ 100 mls/hr IV Q12H [facility] Last Admin: 08/09/20 03:31 Dose: 100 mls/hr Documented by: Vancomycin HCl 1 gm/ Sodium (Chloride) 250 mls @ 250 mls/hr IV Q12H [facility] Last Admin: 08/09/20 04:40 Dose: 250 mls/hr Documented by: Levothyroxine Sodium (Synthroid) 88 mcg PO DAILY [facility] Last Admin: 08/08/20 08:34 Dose: 88 mcg Documented by: Methylprednisolone Sodium Succinate (Solu-Medrol) 60 mg IVPUSH Q8H [facility] Last Admin: 08/08/20 23:43 Dose: 60 mg Documented by: Ondansetron HCl (Zofran) 4 mg IV Q4H PRN PRN Reason: Nausea/Vomiting Pantoprazole Sodium (Protonix Iv) 40 mg IVPUSH Q12H [facility] Last Admin: 08/08/20 20:35 Dose: 40 mg Documented by: Simethicone (Simethicone) 80 mg PO Q6H PRN PRN Reason: Gas pains Last Admin: 08/07/20 21:08 Dose: 80 mg Documented by: Sodium Chloride (Saline Flush) 10 ml FLUSH ONARRIVE [facility] Last Admin: 07/27/20 21:43 Dose: 10 ml Documented by: Vancomycin HCl (Pharmacy To Dose - Vancomycin) 0 dose .XX ASDIRECTED PRN PRN Reason: RX TO DOSE VANCOMYCIN Zinc Sulfate (Zincate) 220 mg PO DAILY [facility] Last Admin: 08/08/20 08:34 Dose: 220 mg Documented by: Discontinued Medications Aspirin (Halfprin) 81 mg PO DAILY [facility] Last Admin: 08/07/20 08:15 Dose: 81 mg Documented by: Azithromycin (Zithromax) 500 mg PO DAILY [facility] Stop: 07/30/20 09:01 Last Admin: 07/30/20 09:20 Dose: 500 mg Documented by: Benzonatate (Tessalon Perles) 100 mg PO TID PRN PRN Reason: Cough Last Admin: 07/30/20 11:35 Dose: 100 mg Documented by: Dexamethasone (Decadron) 6 mg IVPUSH ONETIME STA Stop: 07/27/20 22:03 Last Admin: 07/27/20 22:14 Dose: 6 mg Documented by: Dexamethasone (Dexamethasone) 6 mg PO BEDTIME NAILA Stop: 08/05/20 21:01 Last Admin: 08/05/20 20:16 Dose: 6 mg Documented by: Diphenhydramine HCl (Benadryl) 25 mg IVPUSH ONETIME ONE Stop: 08/08/20 15:46 Last Admin: 08/08/20 15:42 Dose: 25 mg Documented by: Enoxaparin Sodium (Lovenox) 40 mg SUBCUT DAILY [facility] Last Admin: 07/28/20 08:33 Dose: 40 mg Documented by: Enoxaparin Sodium (Lovenox) 40 mg SUBCUT BID [facility] Last Admin: 08/07/20 21:07 Dose: 40 mg Documented by: Sodium Chloride (Normal Saline) 1,000 mls @ 100 mls/hr IV ASDIRECTED [facility] Stop: 07/29/20 00:03 Last Admin: 07/27/20 20:50 Dose: 100 mls/hr Documented by: Sodium Chloride (Normal Saline) 100 mls @ 60 mls/min IV ASDIRECTED [facility] Last Admin: 07/27/20 21:43 Dose: 60 mls/min Documented by: Remdesivir 200 mg/ Sodium (Chloride) 250 mls @ 250 mls/hr IV ONETIME ONE Stop: 07/27/20 22:45 Last Admin: 07/28/20 00:00 Dose: 250 mls/hr Documented by: Remdesivir 100 mg/ Sodium (Chloride) 100 mls @ 100 mls/hr IV Q24H NAILA Stop: 07/31/20 22:59 Last Admin: 07/31/20 21:50 Dose: 100 mls/hr Documented by: Ceftriaxone Sodium 2 gm/ (Sodium Chloride) 100 mls @ 200 mls/hr IV Q24H [facility] Stop: 08/01/20 09:59 Last Admin: 08/01/20 08:57 Dose: 200 mls/hr Documented by: Levofloxacin/Dextrose 500 mg/ (Premix) 100 mls @ 100 mls/hr IV Q24H [facility] Last Admin: 08/08/20 15:18 Dose: 100 mls/hr Documented by: Sodium Chloride (Normal Saline) 500 mls @ 500 mls/hr IV ONETIME ONE Stop: 08/07/20 23:09 Last Admin: 08/07/20 22:15 Dose: 500 mls/hr Documented by: Sodium Chloride (Normal Saline) Confirm Administered Dose 500 mls @ as directed .ROUTE .STK-MED ONE Stop: 08/07/20 22:14 Last Admin: 08/07/20 22:24 Dose: Not Given Documented by: Sodium Chloride (Normal Saline) 500 mls @ 999 mls/hr IV .BOLUS ONE Stop: 08/08/20 12:19 Last Admin: 08/08/20 12:58 Dose: Not Given Documented by: Vancomycin HCl 1 gm/Vancomycin HCl 500 mg/ Sodium Chloride 500 mls @ 250 mls/hr IV ONETIME ONE Stop: 08/08/20 18:59 Last Admin: 08/08/20 16:51 Dose: 250 mls/hr Documented by: Iopamidol (Isovue-370 (76%)) 100 ml IVPUSH ONETIME ONE Stop: 07/27/20 20:54 Last Admin: 07/27/20 21:43 Dose: 100 ml Documented by: Non-Formulary Medication (Nf Drug) 1 each PO DAILY [facility] Last Admin: 07/30/20 14:02 Dose: Not Given Documented by: Pantoprazole Sodium (Protonix Iv) 80 mg IVPUSH BOLUS STA Stop: 08/07/20 22:06 Last Admin: 08/07/20 22:19 Dose: 80 mg Documented by: Potassium Chloride (Klor-Con M20) 40 meq PO ONETIME ONE Stop: 07/27/20 22:47 Last Admin: 07/28/20 00:18 Dose: 40 meq Documented by: - Exam Quality Assessment: Supplemental Oxygen (High flow - 35L with FiO2 of 45), Urine Catheter, DVT Prophylaxis General: Alert, Oriented, Cooperative, No Acute Distress HEENT: Pupils Equal, Pupils Reactive, Mucous Membr. Moist/[place] Neck: Supple, Trachea Midline Lungs: Normal Respiratory Effort, Decreased Breath Sounds, Rhonchi Cardiovascular: Regular Rate, Regular Rhythm GI/Abdominal Exam: Normal Bowel Sounds, Soft, Non-Tender, No Distention (Female) Exam: Deferred Back Exam: Normal Inspection, Full Range of Motion Extremities: Normal Inspection, Normal Range of Motion, Non-Tender, No Pedal Edema, Normal Capillary Refill Skin: Warm, Dry, Intact Neurological: No New Focal Deficit Psy/Mental Status: Alert Sepsis Event Note - Evaluation Sepsis Screening Result: Sepsis Risk - Focused Exam Vital Signs: Vital Signs Temp Pulse Resp BP Pulse Ox Pulse Ox 08/09/20 06:27 94 L 08/09/20 06:07 94 L 08/09/20 03:38 97.7 F 76 29 H 118/51 L 93 L 08/08/20 23:18 98.0 F 81 37 H 142/67 H 94 L 08/08/20 20:47 95 08/08/20 20:00 98.5 F 90 35 H 119/49 L 96 - Problem List & Annotations (1) COVID-19 SNOMED Code(s): 167805388 Code(s): U07.1 - COVID-19 Status: Acute Priority: High Current Visit: Yes (2) Hypoxia SNOMED Code(s): 557597485 Code(s): R09.02 - HYPOXEMIA Status: Acute Priority: High Current Visit: Yes (3) Hypokalemia SNOMED Code(s): 50890275 Code(s): E87.6 - HYPOKALEMIA Status: Acute Priority: High Current Visit: Yes (4) Elevated d-dimer SNOMED Code(s): 420205887 Code(s): R79.89 - OTHER SPECIFIED ABNORMAL FINDINGS OF BLOOD CHEMISTRY Status: Acute Priority: High Current Visit: Yes (5) Hypothyroidism SNOMED Code(s): 27513112 Code(s): E03.9 - HYPOTHYROIDISM, UNSPECIFIED Status: Chronic Priority: Low Current Visit: No Qualifiers: Hypothyroidism type: unspecified Qualified Code(s): E03.9 - Hypothyroidism, unspecified (6) Hypertension SNOMED Code(s): 72071959 Code(s): I10 - ESSENTIAL (PRIMARY) HYPERTENSION Status: Chronic Priority: Medium Current Visit: No Qualifiers: Hypertension type: unspecified Qualified Code(s): I10 - Essential (primary) hypertension (7) Hyponatremia SNOMED Code(s): 20436479 Code(s): E87.1 - HYPO-OSMOLALITY AND HYPONATREMIA Status: Acute Current Visit: Yes (8) Transaminitis SNOMED Code(s): 769211991, 663045177 Code(s): R74.01 - ELEVATION OF LEVELS OF LIVER TRANSAMINASE LEVELS Status: Acute Current Visit: Yes (9) Obesity (BMI 30.0-34.9) SNOMED Code(s): 151627385414927 Code(s): E66.9 - OBESITY, UNSPECIFIED Status: Chronic Priority: Medium Current Visit: Yes (10) Hyperglycemia SNOMED Code(s): 48051417 Code(s): R73.9 - HYPERGLYCEMIA, UNSPECIFIED Status: Acute Priority: High Current Visit: Yes (11) GI bleed SNOMED Code(s): 43281952 Code(s): K92.2 - GASTROINTESTINAL HEMORRHAGE, UNSPECIFIED Status: Acute Priority: High Current Visit: Yes Qualifiers: GI bleed type/associated pathology: unspecified gastrointestinal hemorrhage type Qualified Code(s): K92.2 - Gastrointestinal hemorrhage, unspecified (12) Hypotension SNOMED Code(s): 30251821 Code(s): I95.9 - HYPOTENSION, UNSPECIFIED Status: Acute Priority: High Current Visit: Yes Qualifiers: Hypotension type: unspecified hypotension type Qualified Code(s): I95.9 - Hypotension, unspecified (13) Adverse drug reaction SNOMED Code(s): 87663301 Code(s): T50.905A - ADVERSE EFFECT OF UNSP DRUG/MEDS/BIOL SUBST, INIT Status: Acute Priority: High Current Visit: Yes Qualifiers: Encounter type: initial encounter Qualified Code(s): T50.905A - Adverse effect of unspecified drugs, medicaments and biological substances, initial encounter - Problem List Review Problem List Initiated/Reviewed/Updated: Yes - My Orders Last 24 Hours: My Active Orders 08/08/20 08:26 Antiembolic Devices [RC] PER UNIT ROUTINE SCD [Sequential Compression Device] [OM.PC] Routine 08/08/20 09:00 Pantoprazole [ProTONIX IV] 40 mg IVPUSH Q12H 08/08/20 09:14 Patient Status [ADT] Routine 08/08/20 16:00 Cefepime [Maxipime in D5W 2 GM/50 ML] 2 gm Premix Bag 1 bag IV Q12H methylPREDNISolone Sod Succ [Solu-MEDROL] 60 mg IVPUSH Q8H 08/08/20 16:15 Pharmacy to Dose - Vancomycin 0 dose .XX ASDIRECTED PRN 08/09/20 04:47 PROCALCITONIN [REF] Routine 08/09/20 05:00 Vancomycin [Vancocin] 1 gm Sodium Chloride 0.9% [Normal Saline (AdvBag)] 250 ml IV Q12H - Assessment Assessment:: Assessment - Day of admission 07/28/2020 (admitted overnight 07/27/2020): * 80 yo female who presents to ED with SOB, Fatigue, cough, and body aches * Denies fever, diarrhea, nausea/vomiting * hospitalized for COVID-19 after testing positive on 07/23/2020 * Oxygen saturations of 81% on room air in ED, 96% on 2L * 12-Lead EGK: NSR at 89 BPM with no signs of ischemia * CXR in ED: Bilateral hazy infiltrates, worse on right than on left * CTA in ED: Limited pulmonary arterial visualization, No evidence of central PE, Consider PAH, Diffuse pulmonary parenchymal abnormality Bilateral renal calculi * Labs: * WBC 9.32 * Hgb 14.0 * Plt 212 * D-dimer 2.59 * Sodium 133 * Potassium 3.3 * GFR >60 * Bilirubin 0.7 * AST 128, ALT 87, Alk phos 60 * Troponin 0.025 * Albumin 3.1 * Lactic acid 2.0 * Magnesium 2.0 * Pro-BNP 376 * ABG: pH 7.42, PCO2 37.6, PO2 55, HCO3 23.9, oxygen saturation 88.4 base excess 0.1, A-a gradient 48, on room air * TSH 0.897 * Influenza A and B - Negative * SARS-CoV-2 - positive * MRSA - negative * Admitted to [facility] for treatment of COVID-19, Hypokalemia, Hyponatremia, Hypoxia. 07/29/2020: * Remains on 2L oxygen (improved) * Continues to utilize acapella/IS * Denies any new complaints * Labs * D-dimer improved to 1.82 * WBC 10.49 (steroid?) * Sodium 138 * Potassium 4.5 * Glucose 160 * A1C 6.3 * AST 60, ALT 73, Alk Phos 51 * CRP 17.0 * Albumin 2.0 * Vitamin D 30.1 * Continue current treatment plan * Repots she feels better * Continued cough but non-productive 07/30/2020: * Continue current treatment * She remains on 2L oxygen * Rocephin 3/5 and Veklury 2/4 day of treatment * Dexamethasone 6 mg po 09/20 * Completed Azithromycin * IS and beside pulmonary exercise * Vitamin D and zinc supplement * May benefit with proning * Encourage to ambulate side her room as many times as she can * PRN decongestant/expectorant * Titrate to come off supplemental O2 * DVT prophylaxis: Lovenox 40 mg subQ BID * Code status: full * LOS > 96 hrs for complete treatment of Veklury 07/31/2020: * Continue current treatment * She remains on 2L oxygen * Rocephin 4/5 and Veklury 3/ day of treatment * Dexamethasone 6 mg po 10/18 * Completed Azithromycin * Encourage to use IS/FV and beside pulmonary exercise * Continue Vitamin D and zinc supplement * May benefit with proning * Encourage to ambulate side her room as many times as she can * PRN decongestant/expectorant * Titrate to come off supplemental O2 * DVT prophylaxis: Lovenox 40 mg subQ BID * Code status: full * LOS > 96 hrs for complete treatment of Veklury and hopefully off supplemental O2 08/01/2020 * Continue current treatment * Continues to utilize IS/Acapella * Reports she has been up ambulating but has noticed her endurance is less * Reports she has been trying to prone * On 3.4L o2 - working on weaning * Reports she continues to feel better but has cough * Labs: * WBC 14.87 * Hgb 15.0 * Plt 339,000 * GFR >60 * CRP 4.0 * Albumin 2.7 08/02/2020 * Requiring high flow today - 55L FiO2 of 60 * Continues to utilize IS/Acapella * Coughing frequently * Labs: * WBC 12.45 * Hgb 14.1 * Plt 370 * GFR >60 * D. Dimer 1.29 * CRP 4.2 * Albumin 2.4 * Blood glucose levels have been stable * Continue dexamethasone - day02/18 * SW working on placement - patient in agreement to look into [facility] at discharge 08/03/2020 * Improved high flow today - 40L at FiO2 of 40 * Continues to utilize IS and acapella * Continued cough * Continues to be worried we are upset that we are not happy with how long she is proning for - reassured. * Reports frequent belching - likely 2/2 High flow * No labs obtained today * Dexamethasone day 8/10 * SW continues to work on placement - likely [facility] at discharge. 08/04/2020 * Worsening High flow today 45L with FiO2 of 50 * Continues to utilize acapella and IS * Continues to prone as tolerated * No labs obtained today * Dexamethasone day 04/21 * Patient and accepted at [facility] after discharge * Added PRN simethicone for gas pains 08/05/2020 The patient is a 80-year-old lady who continues with acute respiratory failure due to COVID-19. She is currently on high flow oxygen and this will be continued to help keep her saturations above 92%. The patient also is awaiting placement. She has completed treatment for COVID-19 and I have removed her isolation. The patient will also be kept on her DVT prophylaxis. She has been encouraged to ambulate. The patient is also been advised to utilize incentives parameter. The patient is actively appropriate for discharge once placement is arranged. Repeat laboratory studies have been ordered for the morning. The patient will continue on her current diet as tolerated. 08/06/2020 The patient is a 80-year-old lady who still has acute respiratory failure due to COVID-19 infection. The patient will remain on high flow oxygen to help keep her saturations between 90 and 92%. She has completed treatment for the Covid already. The patient has been encouraged to ambulate. She also be kept on DVT prophylaxis. The patient is to have an appropriate diet as tolerated. Repeat laboratory studies have been ordered. She has also been encouraged to use incentive spirometer. The patient should be appropriate for discharge once placement has been arranged. The patient will need to have her oxygen weaned before transfer. 08/07/2020 The patient is a 80-year-old lady who is currently awaiting placement. She is still on high flow oxygen. Because of this I have ordered a chest x-ray. The patient will remain on oxygen to keep her saturations between 90 and 92%. The patient should also continue with her current diet. She has been encouraged to ambulate. She is on DVT prophylaxis. Repeat laboratory studies have been ordered. The patient should be appropriate for discharge once her oxygen demands have improved significantly and placement has been arranged and a bed is available. 08/08/2020 * Respiratory status worsening * On High Flow at 60L with 60% FiO2. * Stopped BID Lovenox due to nursing reporting frankly bloody stools * Positive occult stool * Given Protonix drip initially - changed to BID IVP Protonix * H/H trend: 15.0-->14.1-->13.8-->10.7-->9.5-->10.0 * Patient upgraded to ICU for closer monitoring * Labs: * WBC 19.60 * Hgb 10.0 * Hct 31.7 * Plt 228 * Sodium 139 * Potassium 4.4 * BUN 48 * Creatinin 0.8 * GFR >60 * ABG obtained in the left radial pH 7.47, PCO2 33.3, PO2 85, HCO3 23.7, O2 saturation 97.0, A-a gradient 301. Obtained while on high flow 60 L 60 FiO2. * Monitor need for intubation * Hypotensive with BP of 82/69 * 500mL IV fluid bolus given * Caution with IV fluids given COVID-19 status * Continue Airborne/Droplet isolation 08/09/2020 * Patient had allergic reaction last night due to Levaquin - was switched to cefepime and vancomycin * CXR shows worsening PNA * Hgb dropped today * H/H trend: 15.0-->14.1-->13.8-->10.7-->9.5-->10.0-->8.2 * Given multiple fluid boluses over past 24 hours due to hypotension * Recheck H/H this afternoon * Per nursing no bloody BMs * Started on IVP steroids for allergic reaction * On high flow at 35L with FiO2 of 45 - saturations of 92% * ABG today: Left radial, pH 7.46, PCO2 35.1, PO2 59.0, HCO3 24.4, O2 saturation 90.1, base excess 1.1, A-a gradient 218 Labs: * WBC 21.18 * Hemoglobin 8.2 * Platelet 189 * Neutrophils elevated at 19.60 * D-dimer 1.09 * Sodium 138 * Potassium 4.2 * BUN 35 * Creatinine 0.8 * GFR greater than 60 * Calcium 7.9 * Magnesium 2.4 * Albumin 2.1 * Continue current treatment plan * Resume PT/OT when able * Continue Airborne/Droplet isolation * Remains ICU status - will consider downgrading tomorrow * Continue Protonix - Plan Plan:: COVID-19 Infection Viral Pneumonitis/Atypical Pneumonia Hypoxia Elevated d-dimer, CTA negative for PE Transaminitis, resolved Class I Obese * Completed remdesivir, azithromycin, Dexamethasone and Rocephin * Started on levaquin due to increasing need for O2, Leukocytosis, and possible PNA * O2 as needed; titrate when able * Attempt to wean off of High flow O2 * RT/IS/Acapella * Continue zinc and vit d supplement * Airborne and contact isolation * Continue daily 81 mg ASA * Lovenox discontinued * Encourage ambulation around room * Encourage proning * Monitor daily labs * Check D-dimer Q48H * Telemetry/continuous pulse oximeter * PT consultation * CM/SW * Cefepime/Vancomycin for new respiratory symptoms/pneumonia Adverse drug reaction * Stop Levaquin * IV fluids as ordered - discontinue * IV push methylprednisolone as ordered * 25mg Benadryl given * O2 as needed * Add Levaquin to adverse drug reaction list for patient GI Bleed Hypotension * Stop BID Lovenox * Monitor H/H * Positive occult * Given Protonix drip initially - change to BID IVP Protonix * Continue IVP Protonix * Monitor for bloody BMs. Hyperglycemia without diagnosis of DM or Glucose Intolerance, mild * Likely 2/2 steroid administration * Monitor blood glucose AM/PM * Check A1C 6.30-meets criteria for pre-diabetes * Monitor need for insulin Hypokalemia, resolved Hyponatremia, resolved * Certified Pedorthotist consult * Monitor labs Hypothyroidism Hypertension * Continue home Levothyroxine * Hold home HCTZ * TSH WNL * Monitor vital signs Q8H PCP: Dr. Mars Code status: Full Code DVT prophylaxis: SCDs (Lovenox discontinued due to GI Bleed. Social: Patient lives with in [place]. is admitted to [facility] unit for COVID-19 as well. She reports neither her nor her drive and they often get rides around town by buddh[employer] members. Patient accepted for admittance to [facility] once cleared for dicharge. Disposition: Patient admitted for treatment of COVID-19, Hypoxia, and electrolyte abnormalities. LOS >96 hrs to complete treatment for COVID-19, New PNA.
[2020-08-09] MEDS: methylPREDNISolone Sodium Succinate 40 MG/1 ML SDV IVPUSH SCH ×3 (08:02→23:42)
[2020-08-09] MEDS: Levothyroxine 88 MCG Tab PO SCH (08:02)
[2020-08-09] MEDS: Cholecalciferol (Vitamin D3) 5,000 UNIT Cap PO SCH (08:02)
[2020-08-09] MEDS: Pantoprazole 40 MG Vial IVPUSH SCH ×2 (08:02→21:04)
[2020-08-09] MEDS: Zinc Sulfate 220 MG Cap PO SCH (08:02)
[2020-08-09] MEDS: Benzocaine/Cetylpyridinium/Menthol Lozenge MUCMEM PRN (19:44)
[2020-08-10] MEDS: Cefepime 2 GM in Premix Bag 1 BAG IV SCH ×2 (03:53→15:31)
--- NOTE | 2020-08-10 07:26 | PCM.PN ---
<Derrick Ohara - Last Filed: 08/10/20 14:31> - General Info Date of Service: 08/10/20 Admission Dx/Problem (Free Text): Admission Diagnosis/Problem Admission Diagnosis/Problem Hypoxemia, COVID-19 infection Functional Status: Reports: Pain Controlled, Tolerating Diet, Urinating, Incentive Spirometry, Other (acapella ). Denies: Ambulating (Dizzy when sitting up ), New Symptoms - Review of Systems General: Reports: Weakness, Fatigue, Malaise. Denies: Fever, Chills HEENT: Reports: No Symptoms. Denies: Headaches, Sore Throat Pulmonary: Reports: Shortness of Breath, Cough. Denies: Sputum, Wheezing Cardiovascular: Reports: Dyspnea on Exertion, Lightheadedness (improved - worse with standing ). Denies: Chest Pain, Palpitations, Edema Gastrointestinal: Reports: No Symptoms. Denies: Abdominal Pain, Constipation, Diarrhea, Nausea, Vomiting Genitourinary: Reports: No Symptoms. Denies: Pain Musculoskeletal: Reports: No Symptoms Skin: Reports: No Symptoms. Denies: Cyanosis Neurological: Reports: Dizziness, Difficulty Walking, Weakness, Gait Disturbance. Denies: Confusion, Headache, Numbness, Seizure, Syncope, Tingling Psychiatric: Reports: No Symptoms - Patient Data Vitals - Most Recent: Last Vital Signs Temp 97.8 F 08/10/20 03:54 Pulse 89 08/10/20 03:54 Resp 34 H 08/10/20 03:54 BP 118/55 L 08/10/20 03:54 Pulse Ox 93 L 08/10/20 06:35 Weight - Most Recent: 88.677 kg I&O - Last 24 Hours: Intake & Output 08/09/20 08/10/20 08/10/20 22:59 06:59 14:59 Intake Total 930 Output Total 580 385 Balance -580 545 Lab Results Last 24 Hours: Laboratory Results - last 24 hr 08/09/20 08/09/20 08/09/20 Range/Units 04:47 09:10 13:00 WBC (3.98-10.04) K/mm3 RBC (3.98-5.22) M/mm3 Hgb 8.6 L (11.2-15.7) gm/dl Hct 27.4 L (34.1-44.9) % MCV (79.4-94.8) fl MCH (25.6-32.2) pg MCHC (32.2-35.5) g/dl RDW Std Deviation (36.4-46.3) fL Plt Count (182-369) K/mm3 MPV (9.4-12.3) fl Neut % (Auto) (34.0-71.1) % Lymph % (Auto) (19.3-51.7) % Preston % (Auto) (4.7-12.5) % Eos % (Auto) (0.7-5.8) Baso % (Auto) (0.1-1.2) % Neut # (Auto) (1.56-6.13) K/mm3 Lymph # (Auto) (1.18-3.74) K/mm3 Preston # (Auto) (0.24-0.36) K/mm3 Eos # (Auto) (0.04-0.36) K/mm3 Baso # (Auto) (0.01-0.08) K/mm3 Manual Slide Review Puncture Site Lt radial ABG pH 7.46 H (7.35-7.45) ABG pCO2 35.1 (35.0-45.0) mmHg ABG pO2 59.0 L (80.0-100.0) mmHg ABG HCO3 24.4 (22.0-26.0) meq/L ABG O2 Saturation 90.1 L (96.0-97.0) % ABG Base Excess 1.1 (-2-2.0) Wing Test Positive A-a Gradient 218 mmHg O2 Delivery Device Hiflow nasal cannula Oxygen Flow Rate 35.0 FiO2 45.00 (21.00-100.00) % Sodium (136-145) mEq/L Potassium (3.5-5.1) mEq/L Chloride (98-107) mEq/L Carbon Dioxide (21-32) mEq/L Anion Gap (5-15) BUN (7-18) mg/dL Creatinine (0.55-1.02) mg/dL Est Cr Clr Drug Dosing mL/min Estimated GFR (MDRD) (>60) mL/min BUN/Creatinine Ratio (14-18) Glucose (83-115) mg/dL POC Glucose (83-110) mg/dL Calcium (8.5-10.1) mg/dL C-Reactive Protein (<1.0) mg/dL Procalcitonin <0.05 ng/mL 08/09/20 08/10/20 08/10/20 Range/Units 22:05 05:58 05:58 WBC 22.04 H (3.98-10.04) K/mm3 RBC 2.54 L (3.98-5.22) M/mm3 Hgb 7.5 L (11.2-15.7) gm/dl Hct 23.5 L (34.1-44.9) % MCV 92.5 (79.4-94.8) fl MCH 29.5 (25.6-32.2) pg MCHC 31.9 L (32.2-35.5) g/dl RDW Std Deviation 43.9 (36.4-46.3) fL Plt Count 183 (182-369) K/mm3 MPV 10.9 (9.4-12.3) fl Neut % (Auto) 89.7 H (34.0-71.1) % Lymph % (Auto) 5.5 L (19.3-51.7) % Preston % (Auto) 3.4 L (4.7-12.5) % Eos % (Auto) 0 L (0.7-5.8) Baso % (Auto) 0.0 L (0.1-1.2) % Neut # (Auto) 19.75 H (1.56-6.13) K/mm3 Lymph # (Auto) 1.21 (1.18-3.74) K/mm3 Preston # (Auto) 0.76 H (0.24-0.36) K/mm3 Eos # (Auto) 0.00 L (0.04-0.36) K/mm3 Baso # (Auto) 0.01 (0.01-0.08) K/mm3 Manual Slide Review Abnormal smear Puncture Site ABG pH (7.35-7.45) ABG pCO2 (35.0-45.0) mmHg ABG pO2 (80.0-100.0) mmHg ABG HCO3 (22.0-26.0) meq/L ABG O2 Saturation (96.0-97.0) % ABG Base Excess (-2-2.0) Wing Test A-a Gradient mmHg O2 Delivery Device Oxygen Flow Rate FiO2 (21.00-100.00) % Sodium 135 L (136-145) mEq/L Potassium 3.9 (3.5-5.1) mEq/L Chloride 103 (98-107) mEq/L Carbon Dioxide 23 (21-32) mEq/L Anion Gap 12.9 (5-15) BUN 27 H (7-18) mg/dL Creatinine 0.6 (0.55-1.02) mg/dL Est Cr Clr Drug Dosing 66.13 mL/min Estimated GFR (MDRD) > 60 (>60) mL/min BUN/Creatinine Ratio 45.0 H (14-18) Glucose 144 H (83-115) mg/dL POC Glucose 165 H (83-110) mg/dL Calcium 7.6 L (8.5-10.1) mg/dL C-Reactive Protein < 0.2 (<1.0) mg/dL Procalcitonin ng/mL Med Orders - Current: Current Medications Acetaminophen (Tylenol) 650 mg PO Q4H PRN PRN Reason: Pain (Mild 1-3)/fever Last Admin: 08/07/20 21:08 Dose: 650 mg Documented by: Al Hydroxide/Mg Hydroxide (Mag-Al Plus) 30 ml PO Q8H PRN PRN Reason: Indigestion Last Admin: 08/05/20 18:53 Dose: 30 ml Documented by: Albuterol (Proventil Neb Soln) 2.5 mg NEB Q2H PRN PRN Reason: Shortness Of Breath/wheezing Last Admin: 07/29/20 05:30 Dose: 2.5 mg Documented by: Albuterol/Ipratropium (Duoneb 3.0-0.5 Mg/3 Ml) 3 ml NEB Q4H PRN PRN Reason: Shortness Of Breath/wheezing Benzocaine/Menthol (Cepacol Sore Throat) 1 lozenge MUCMEM Q2H PRN PRN Reason: Sore Throat Last Admin: 08/09/20 19:44 Dose: 1 lozenge Documented by: Benzonatate (Tessalon Perles) 100 mg PO TID PRN PRN Reason: COUGH Last Admin: 08/05/20 20:17 Dose: 100 mg Documented by: Cholecalciferol (Vitamin D3) 5,000 unit PO DAILY NAILA Last Admin: 08/09/20 08:02 Dose: 5,000 unit Documented by: Guaifenesin/Codeine Phosphate (Robitussin Ac) 5 ml PO Q4H PRN PRN Reason: Cough Last Admin: 08/04/20 21:40 Dose: 5 ml Documented by: Guaifenesin/Phenylephrine HCl (Robitussin Dm) 10 ml PO Q4H PRN PRN Reason: Cough Last Admin: 08/05/20 18:54 Dose: 10 ml Documented by: Cefepime HCl 2 gm/ Premix 50 mls @ 100 mls/hr IV Q12H [facility] [place] Last Admin: 08/10/20 03:53 Dose: 100 mls/hr Documented by: Vancomycin HCl 1 gm/ Sodium (Chloride) 250 mls @ 250 mls/hr IV Q12H [facility] [place] Last Admin: 08/10/20 04:23 Dose: 250 mls/hr Documented by: Levothyroxine Sodium (Synthroid) 88 mcg PO DAILY [facility] [place] Last Admin: 08/09/20 08:02 Dose: 88 mcg Documented by: Methylprednisolone Sodium Succinate (Solu-Medrol) 60 mg IVPUSH Q8H [facility] [place] Last Admin: 08/09/20 23:42 Dose: 60 mg Documented by: Ondansetron HCl (Zofran) 4 mg IV Q4H PRN PRN Reason: Nausea/Vomiting Pantoprazole Sodium (Protonix Iv) 40 mg IVPUSH Q12H [facility] [place] Last Admin: 08/09/20 21:04 Dose: 40 mg Documented by: Simethicone (Simethicone) 80 mg PO Q6H PRN PRN Reason: Gas pains Last Admin: 08/07/20 21:08 Dose: 80 mg Documented by: Sodium Chloride (Saline Flush) 10 ml FLUSH ONARRIVE [facility] [place] Last Admin: 07/27/20 21:43 Dose: 10 ml Documented by: Vancomycin HCl (Pharmacy To Dose - Vancomycin) 0 dose .XX ASDIRECTED PRN PRN Reason: RX TO DOSE VANCOMYCIN Zinc Sulfate (Zincate) 220 mg PO DAILY [facility] [place] Last Admin: 08/09/20 08:02 Dose: 220 mg Documented by: Discontinued Medications Aspirin (Halfprin) 81 mg PO DAILY [facility] [place] Last Admin: 08/07/20 08:15 Dose: 81 mg Documented by: Azithromycin (Zithromax) 500 mg PO DAILY [facility] [place] Stop: 07/30/20 09:01 Last Admin: 07/30/20 09:20 Dose: 500 mg Documented by: Benzonatate (Tessalon Perles) 100 mg PO TID PRN PRN Reason: Cough Last Admin: 07/30/20 11:35 Dose: 100 mg Documented by: Dexamethasone (Decadron) 6 mg IVPUSH ONETIME STA Stop: 07/27/20 22:03 Last Admin: 07/27/20 22:14 Dose: 6 mg Documented by: Dexamethasone (Dexamethasone) 6 mg PO BEDTIME NAILA Stop: 08/05/20 21:01 Last Admin: 08/05/20 20:16 Dose: 6 mg Documented by: Diphenhydramine HCl (Benadryl) 25 mg IVPUSH ONETIME ONE Stop: 08/08/20 15:46 Last Admin: 08/08/20 15:42 Dose: 25 mg Documented by: Enoxaparin Sodium (Lovenox) 40 mg SUBCUT DAILY [facility] [place] Last Admin: 07/28/20 08:33 Dose: 40 mg Documented by: Enoxaparin Sodium (Lovenox) 40 mg SUBCUT BID [facility] [place] Last Admin: 08/07/20 21:07 Dose: 40 mg Documented by: Sodium Chloride (Normal Saline) 1,000 mls @ 100 mls/hr IV ASDIRECTED [facility] [place] Stop: 07/29/20 00:03 Last Admin: 07/27/20 20:50 Dose: 100 mls/hr Documented by: Sodium Chloride (Normal Saline) 100 mls @ 60 mls/min IV ASDIRECTED [facility] [place] Last Admin: 07/27/20 21:43 Dose: 60 mls/min Documented by: Remdesivir 200 mg/ Sodium (Chloride) 250 mls @ 250 mls/hr IV ONETIME ONE Stop: 07/27/20 22:45 Last Admin: 07/28/20 00:00 Dose: 250 mls/hr Documented by: Remdesivir 100 mg/ Sodium (Chloride) 100 mls @ 100 mls/hr IV Q24H [facility]IL[facility] Stop: 07/31/20 22:59 Last Admin: 07/31/20 21:50 Dose: 100 mls/hr Documented by: Ceftriaxone Sodium 2 gm/ (Sodium Chloride) 100 mls @ 200 mls/hr IV Q24H [facility] [place] Stop: 08/01/20 09:59 Last Admin: 08/01/20 08:57 Dose: 200 mls/hr Documented by: Levofloxacin/Dextrose 500 mg/ (Premix) 100 mls @ 100 mls/hr IV Q24H [facility] [place] Last Admin: 08/08/20 15:18 Dose: 100 mls/hr Documented by: Sodium Chloride (Normal Saline) 500 mls @ 500 mls/hr IV ONETIME ONE Stop: 08/07/20 23:09 Last Admin: 08/07/20 22:15 Dose: 500 mls/hr Documented by: Sodium Chloride (Normal Saline) Confirm Administered Dose 500 mls @ as directed .ROUTE .STK-MED ONE Stop: 08/07/20 22:14 Last Admin: 08/07/20 22:24 Dose: Not Given Documented by: Sodium Chloride (Normal Saline) 500 mls @ 999 mls/hr IV .BOLUS ONE Stop: 08/08/20 12:19 Last Admin: 08/08/20 12:58 Dose: Not Given Documented by: Vancomycin HCl 1 gm/Vancomycin HCl 500 mg/ Sodium Chloride 500 mls @ 250 mls/hr IV ONETIME ONE Stop: 08/08/20 18:59 Last Admin: 08/08/20 16:51 Dose: 250 mls/hr Documented by: Iopamidol (Isovue-370 (76%)) 100 ml IVPUSH ONETIME ONE Stop: 07/27/20 20:54 Last Admin: 07/27/20 21:43 Dose: 100 ml Documented by: Non-Formulary Medication (Nf Drug) 1 each PO DAILY [facility] [place] Last Admin: 07/30/20 14:02 Dose: Not Given Documented by: Pantoprazole Sodium (Protonix Iv) 80 mg IVPUSH BOLUS STA Stop: 08/07/20 22:06 Last Admin: 08/07/20 22:19 Dose: 80 mg Documented by: Potassium Chloride (Klor-Con M20) 40 meq PO ONETIME ONE Stop: 07/27/20 22:47 Last Admin: 07/28/20 00:18 Dose: 40 meq Documented by: - Exam Quality Assessment: Supplemental Oxygen (6L), Urine Catheter, DVT Prophylaxis General: Alert, Oriented, Cooperative, Mild Distress (looks ill ) HEENT: Pupils Equal, Pupils Reactive, Mucous Membr. Moist/[place] Neck: Supple, Trachea Midline Lungs: Normal Respiratory Effort, Decreased Breath Sounds Cardiovascular: Regular Rate, Regular Rhythm GI/Abdominal Exam: Normal Bowel Sounds, Soft, Non-Tender, No Distention (Female) Exam: Deferred Back Exam: Normal Inspection, Full Range of Motion Extremities: Normal Inspection, Normal Range of Motion, Non-Tender, No Pedal Edema, Normal Capillary Refill Skin: Warm, Dry, Intact Neurological: No New Focal Deficit Psy/Mental Status: Alert Sepsis Event Note - Evaluation Sepsis Screening Result: Sepsis Risk Current Stage of Sepsis: Ruled Out Reason for Ruling Out Sepsis: On broad spectrum ABX, Leukocytosis from steroid, Oxygenation improving - Focused Exam Vital Signs: Vital Signs Temp Pulse Resp BP Pulse Ox Pulse Ox Pulse Ox 08/10/20 06:35 93 L 08/10/20 06:10 95 08/10/20 03:54 97.8 F 89 34 H 118/55 L 91 L 08/09/20 23:55 99.6 F 45 H 125/58 L 91 L 08/09/20 20:00 97.6 F 86 37 H 102/46 L 92 L 08/09/20 19:39 92 L - Problem List & Annotations (1) COVID-19 SNOMED Code(s): 944461079 Code(s): U07.1 - COVID-19 Status: Acute Priority: High Current Visit: Yes (2) Hypoxia SNOMED Code(s): 515329781 Code(s): R09.02 - HYPOXEMIA Status: Acute Priority: High Current Visit: Yes (3) Hypokalemia SNOMED Code(s): 60218766 Code(s): E87.6 - HYPOKALEMIA Status: Acute Priority: High Current Visit: Yes (4) Elevated d-dimer SNOMED Code(s): 444990097 Code(s): R79.89 - OTHER SPECIFIED ABNORMAL FINDINGS OF BLOOD CHEMISTRY Status: Acute Priority: High Current Visit: Yes (5) Hypothyroidism SNOMED Code(s): 97891692 Code(s): E03.9 - HYPOTHYROIDISM, UNSPECIFIED Status: Chronic Priority: Low Current Visit: No Qualifiers: Hypothyroidism type: unspecified Qualified Code(s): E03.9 - Hypothyroidism, unspecified (6) Hypertension SNOMED Code(s): 50916190 Code(s): I10 - ESSENTIAL (PRIMARY) HYPERTENSION Status: Chronic Priority: Medium Current Visit: No Qualifiers: Hypertension type: unspecified Qualified Code(s): I10 - Essential (primary) hypertension (7) Hyponatremia SNOMED Code(s): 62533962 Code(s): E87.1 - HYPO-OSMOLALITY AND HYPONATREMIA Status: Acute Current Visit: Yes (8) Transaminitis SNOMED Code(s): 029763839, 462290080 Code(s): R74.01 - ELEVATION OF LEVELS OF LIVER TRANSAMINASE LEVELS Status: Acute Current Visit: Yes (9) Obesity (BMI 30.0-34.9) SNOMED Code(s): 514490263859156 Code(s): E66.9 - OBESITY, UNSPECIFIED Status: Chronic Priority: Medium Current Visit: Yes (10) Hyperglycemia SNOMED Code(s): 59489943 Code(s): R73.9 - HYPERGLYCEMIA, UNSPECIFIED Status: Acute Priority: High Current Visit: Yes (11) GI bleed SNOMED Code(s): 26716088 Code(s): K92.2 - GASTROINTESTINAL HEMORRHAGE, UNSPECIFIED Status: Resolved Priority: High Current Visit: Yes Qualifiers: GI bleed type/associated pathology: unspecified gastrointestinal hemorrhage type Qualified Code(s): K92.2 - Gastrointestinal hemorrhage, unspecified (12) Hypotension SNOMED Code(s): 16024633 Code(s): I95.9 - HYPOTENSION, UNSPECIFIED Status: Resolved Priority: High Current Visit: Yes Qualifiers: Hypotension type: unspecified hypotension type Qualified Code(s): I95.9 - Hypotension, unspecified (13) Adverse drug reaction SNOMED Code(s): 43855261 Code(s): T50.905A - ADVERSE EFFECT OF UNSP DRUG/MEDS/BIOL SUBST, INIT Status: Resolved Priority: High Current Visit: Yes Qualifiers: Encounter type: initial encounter Qualified Code(s): T50.905A - Adverse effect of unspecified drugs, medicaments and biological substances, initial encounter - Problem List Review Problem List Initiated/Reviewed/Updated: Yes - My Orders Last 24 Hours: My Active Orders 08/09/20 10:34 Consult to Occupational Therapy [OT Evaluation and Treatment] [CONS] Routine PT Evaluation and Treatment [CONS] Routine 08/10/20 05:58 FE, TIBC, TRANSFERRIN, FE SAT [CHEM] Routine 08/10/20 07:14 Patient Status [ADT] Routine 08/11/20 05:11 BASIC METABOLIC PANEL,BMP [CHEM] AM CBC WITH AUTO DIFF [HEME] AM CRP [C-REACTIVE PROTEIN] [CHEM] AM 08/12/20 05:11 BASIC METABOLIC PANEL,BMP [CHEM] AM CBC WITH AUTO DIFF [HEME] AM CRP [C-REACTIVE PROTEIN] [CHEM] AM 08/13/20 05:11 BASIC METABOLIC PANEL,BMP [CHEM] AM CBC WITH AUTO DIFF [HEME] AM CRP [C-REACTIVE PROTEIN] [CHEM] AM - Assessment Assessment:: Assessment - Day of admission 07/28/2020 (admitted overnight 07/27/2020): * 80 yo female who presents to ED with SOB, Fatigue, cough, and body aches * Denies fever, diarrhea, nausea/vomiting * hospitalized for COVID-19 after testing positive on 07/23/2020 * Oxygen saturations of 81% on room air in ED, 96% on 2L * 12-Lead EGK: NSR at 89 BPM with no signs of ischemia * CXR in ED: Bilateral hazy infiltrates, worse on right than on left * CTA in ED: Limited pulmonary arterial visualization, No evidence of central PE, Consider PAH, Diffuse pulmonary parenchymal abnormality Bilateral renal calculi * Labs: * WBC 9.32 * Hgb 14.0 * Plt 212 * D-dimer 2.59 * Sodium 133 * Potassium 3.3 * GFR >60 * Bilirubin 0.7 * AST 128, ALT 87, Alk phos 60 * Troponin 0.025 * Albumin 3.1 * Lactic acid 2.0 * Magnesium 2.0 * Pro-BNP 376 * ABG: pH 7.42, PCO2 37.6, PO2 55, HCO3 23.9, oxygen saturation 88.4 base excess 0.1, A-a gradient 48, on room air * TSH 0.897 * Influenza A and B - Negative * SARS-CoV-2 - positive * MRSA - negative * Admitted to [facility] for treatment of COVID-19, Hypokalemia, Hyponatremia, Hypoxia. 07/29/2020: * Remains on 2L oxygen (improved) * Continues to utilize acapella/IS * Denies any new complaints * Labs * D-dimer improved to 1.82 * WBC 10.49 (steroid?) * Sodium 138 * Potassium 4.5 * Glucose 160 * A1C 6.3 * AST 60, ALT 73, Alk Phos 51 * CRP 17.0 * Albumin 2.0 * Vitamin D 30.1 * Continue current treatment plan * Repots she feels better * Continued cough but non-productive 07/30/2020: * Continue current treatment * She remains on 2L oxygen * Rocephin 3/5 and Veklury 2/4 day of treatment * Dexamethasone 6 mg po 09/20 * Completed Azithromycin * IS and beside pulmonary exercise * Vitamin D and zinc supplement * May benefit with proning * Encourage to ambulate side her room as many times as she can * PRN decongestant/expectorant * Titrate to come off supplemental O2 * DVT prophylaxis: Lovenox 40 mg subQ BID * Code status: full * LOS > 96 hrs for complete treatment of Veklury 07/31/2020: * Continue current treatment * She remains on 2L oxygen * Rocephin 4/5 and Veklury 3/4 day of treatment * Dexamethasone 6 mg po 10/18 * Completed Azithromycin * Encourage to use IS/FV and beside pulmonary exercise * Continue Vitamin D and zinc supplement * May benefit with proning * Encourage to ambulate side her room as many times as she can * PRN decongestant/expectorant * Titrate to come off supplemental O2 * DVT prophylaxis: Lovenox 40 mg subQ BID * Code status: full * LOS > 96 hrs for complete treatment of Veklury and hopefully off supplemental O2 08/01/2020 * Continue current treatment * Continues to utilize IS/Acapella * Reports she has been up ambulating but has noticed her endurance is less * Reports she has been trying to prone * On 3.4L o2 - working on weaning * Reports she continues to feel better but has cough * Labs: * WBC 14.87 * Hgb 15.0 * Plt 339,000 * GFR >60 * CRP 4.0 * Albumin 2.7 08/02/2020 * Requiring high flow today - 55L FiO2 of 60 * Continues to utilize IS/Acapella * Coughing frequently * Labs: * WBC 12.45 * Hgb 14.1 * Plt 370 * GFR >60 * D. Dimer 1.29 * CRP 4.2 * Albumin 2.4 * Blood glucose levels have been stable * Continue dexamethasone - day02/18 * SW working on placement - patient in agreement to look into [facility] at discharge 08/03/2020 * Improved high flow today - 40L at FiO2 of 40 * Continues to utilize IS and acapella * Continued cough * Continues to be worried we are upset that we are not happy with how long she is proning for - reassured. * Reports frequent belching - likely 2/2 High flow * No labs obtained today * Dexamethasone day 03/21 * SW continues to work on placement - likely [facility] at discharge. 08/04/2020 * Worsening High flow today 45L with FiO2 of 50 * Continues to utilize acapella and IS * Continues to prone as tolerated * No labs obtained today * Dexamethasone day 04/21 * Patient and accepted at [facility] after discharge * Added PRN simethicone for gas pains 08/05/2020 The patient is a 80-year-old lady who continues with acute respiratory failure due to COVID-19. She is currently on high flow oxygen and this will be continued to help keep her saturations above 92%. The patient also is awaiting placement. She has completed treatment for COVID-19 and I have removed her isolation. The patient will also be kept on her DVT prophylaxis. She has been encouraged to ambulate. The patient is also been advised to utilize incentives parameter. The patient is actively appropriate for discharge once placement is arranged. Repeat laboratory studies have been ordered for the morning. The patient will continue on her current diet as tolerated. 08/06/2020 The patient is a 80-year-old lady who still has acute respiratory failure due to COVID-19 infection. The patient will remain on high flow oxygen to help keep her saturations between 90 and 92%. She has completed treatment for the Covid already. The patient has been encouraged to ambulate. She also be kept on DVT prophylaxis. The patient is to have an appropriate diet as tolerated. Repeat laboratory studies have been ordered. She has also been encouraged to use incentive spirometer. The patient should be appropriate for discharge once placement has been arranged. The patient will need to have her oxygen weaned before transfer. 08/07/2020 The patient is a 80-year-old lady who is currently awaiting placement. She is still on high flow oxygen. Because of this I have ordered a chest x-ray. The patient will remain on oxygen to keep her saturations between 90 and 92%. The patient should also continue with her current diet. She has been encouraged to ambulate. She is on DVT prophylaxis. Repeat laboratory studies have been ordered. The patient should be appropriate for discharge once her oxygen demands have improved significantly and placement has been arranged and a bed is available. 08/08/2020 * Respiratory status worsening * On High Flow at 60L with 60% FiO2. * Stopped BID Lovenox due to nursing reporting frankly bloody stools * Positive occult stool * Given Protonix drip initially - changed to BID IVP Protonix * H/H trend: 15.0-->14.1-->13.8-->10.7-->9.5-->10.0 * Patient upgraded to ICU for closer monitoring * Labs: * WBC 19.60 * Hgb 10.0 * Hct 31.7 * Plt 228 * Sodium 139 * Potassium 4.4 * BUN 48 * Creatinin 0.8 * GFR >60 * ABG obtained in the left radial pH 7.47, PCO2 33.3, PO2 85, HCO3 23.7, O2 saturation 97.0, A-a gradient 301. Obtained while on high flow 60 L 60 FiO2. * Monitor need for intubation * Hypotensive with BP of 82/69 * 500mL IV fluid bolus given * Caution with IV fluids given COVID-19 status * Continue Airborne/Droplet isolation 08/09/2020 * Patient had allergic reaction last night due to Levaquin - was switched to cefepime and vancomycin * CXR shows worsening PNA * Hgb dropped today * H/H trend: 15.0-->14.1-->13.8-->10.7-->9.5-->10.0-->8.2 * Given multiple fluid boluses over past 24 hours due to hypotension * Recheck H/H this afternoon * Per nursing no bloody BMs * Started on IVP steroids for allergic reaction * On high flow at 35L with FiO2 of 45 - saturations of 92% * ABG today: Left radial, pH 7.46, PCO2 35.1, PO2 59.0, HCO3 24.4, O2 saturation 90.1, base excess 1.1, A-a gradient 218 Labs: * WBC 21.18 * Hemoglobin 8.2 * Platelet 189 * Neutrophils elevated at 19.60 * D-dimer 1.09 * Sodium 138 * Potassium 4.2 * BUN 35 * Creatinine 0.8 * GFR greater than 60 * Calcium 7.9 * Magnesium 2.4 * Albumin 2.1 * Continue current treatment plan * Resume PT/OT when able * Continue Airborne/Droplet isolation * Remains ICU status - will consider downgrading tomorrow * Continue Protonix 08/10/2020 * Weaned off of high flow - currently on 6L O2 * Very weak with no endurance. Saturations drop when standing up and recover slowly * Continue Lam caterer due to patients severe desaturations with movement * Continue IS/Acapella * Recheck H/H this afternoon * Spoke with on-call surgeon, Dr. Armendariz about patient. Denies need for formal consultation. Recommends continuing Protonix BID and monitor labs, stopping offending agent (lovenox) and transfuse as needed. * Nursing notes no BMs for past several days. * Labs: * WBC 22.04 * Hemoglobin 7.5-->8.9 * Platelets 183,000, neutrophils elevated at 89.7% * Sodium 135 * Potassium 3.9 * BUN 27 * Creatinine 0.6 * GFR greater than 60 * Iron panel: Iron 57 TIBC 231, percent saturation 25, transferrin 185 * Ferritin 422 * CRP less than 0.2 * Re-check AM labs * Start Senna daily * Resume PT/OT * SW continues to plan for placement * Downgraded to M/S/P status with telemetry today. - Plan Plan:: COVID-19 Infection Viral Pneumonitis/Atypical Pneumonia Hypoxia Elevated d-dimer, CTA negative for PE Transaminitis, resolved Class I Obese * Completed remdesivir, azithromycin, Dexamethasone and Rocephin * Started on levaquin due to increasing need for O2, Leukocytosis, and possible PNA * O2 as needed; titrate when able * Attempt to wean off of O2 * RT/IS/Acapella * Continue zinc and vit d supplement * Airborne and contact isolation * Lovenox discontinued * Encourage ambulation around room * Encourage proning * Monitor daily labs * Check D-dimer Q48H * Telemetry/continuous pulse oximeter * PT consultation * CM/SW * Cefepime/Vancomycin for new respiratory symptoms/pneumonia * Continue lam catheter for now Adverse drug reaction, Resolved * Levaquin added to patients adverse reaction/allergy list * Decrease steroid dosing and wean GI Bleed Hypotension * Stop BID Lovenox * Monitor H/H * Positive occult * Given Protonix drip initially - change to BID IVP Protonix * Continue IVP Protonix * Monitor for bloody BMs. Hyperglycemia without diagnosis of DM or Glucose Intolerance, mild * Likely 2/2 steroid administration * Monitor blood glucose AM/PM * Check A1C 6.30-meets criteria for pre-diabetes * Monitor need for insulin Hypokalemia, resolved Hyponatremia, resolved * Track Announcer consult * Monitor labs Hypothyroidism Hypertension * Continue home Levothyroxine * Hold home HCTZ * TSH WNL * Monitor vital signs Q8H PCP: Dr. Mars Code status: Full Code DVT prophylaxis: SCDs (Lovenox discontinued due to GI Bleed.) Social: Patient lives with in [place]. is admitted to [facility] unit for COVID-19 as well. She reports neither her nor her drive and they often get rides around town by [employer]. Patient accepted for admittance to [facility] once cleared for dicharge. Disposition: Patient admitted for treatment of COVID-19, Hypoxia, and electrolyte abnormalities. LOS >96 hrs to complete treatment for COVID-19, New PNA. <Elvis Goodman - Last Filed: 08/10/20 15:36> - Patient Data Vitals - Most Recent: Last Vital Signs Temp 36.4 C 08/10/20 12:00 Pulse 92 08/10/20 12:00 Resp 30 H 08/10/20 12:00 BP 135/76 08/10/20 12:00 Pulse Ox 92 L 08/10/20 12:00 I&O - Last 24 Hours: Intake & Output 08/10/20 08/10/20 08/10/20 06:59 14:59 22:59 Intake Total 930 300 Output Total 385 725 Balance 545 -425 Lab Results Last 24 Hours: Laboratory Results - last 24 hr 08/09/20 08/09/20 08/10/20 Range/Units 04:47 22:05 05:58 WBC 22.04 H (3.98-10.04) K/mm3 RBC 2.54 L (3.98-5.22) M/mm3 Hgb 7.5 L (11.2-15.7) gm/dl Hct 23.5 L (34.1-44.9) % MCV 92.5 (79.4-94.8) fl MCH 29.5 (25.6-32.2) pg MCHC 31.9 L (32.2-35.5) g/dl RDW Std Deviation 43.9 (36.4-46.3) fL Plt Count 183 (182-369) K/mm3 MPV 10.9 (9.4-12.3) fl Neut % (Auto) 89.7 H (34.0-71.1) % Lymph % (Auto) 5.5 L (19.3-51.7) % Preston % (Auto) 3.4 L (4.7-12.5) % Eos % (Auto) 0 L (0.7-5.8) Baso % (Auto) 0.0 L (0.1-1.2) % Neut # (Auto) 19.75 H (1.56-6.13) K/mm3 Lymph # (Auto) 1.21 (1.18-3.74) K/mm3 Preston # (Auto) 0.76 H (0.24-0.36) K/mm3 Eos # (Auto) 0.00 L (0.04-0.36) K/mm3 Baso # (Auto) 0.01 (0.01-0.08) K/mm3 Manual Slide Review Abnormal smear Sodium (136-145) mEq/L Potassium (3.5-5.1) mEq/L Chloride (98-107) mEq/L Carbon Dioxide (21-32) mEq/L Anion Gap (5-15) BUN (7-18) mg/dL Creatinine (0.55-1.02) mg/dL Est Cr Clr Drug Dosing mL/min Estimated GFR (MDRD) (>60) mL/min BUN/Creatinine Ratio (14-18) Glucose (83-115) mg/dL POC Glucose 165 H (83-110) mg/dL Calcium (8.5-10.1) mg/dL Iron (50-170) ug/dL TIBC (100-400) ug/dL % Saturation (20-55) % Transferrin (202-364) mg/dL Ferritin (8-252) ng/ml C-Reactive Protein (<1.0) mg/dL Procalcitonin <0.05 ng/mL 12/08/10/20 08/10/20 Range/Units 05:58 05:58 05:58 WBC (3.98-10.04) K/mm3 RBC (3.98-5.22) M/mm3 Hgb (11.2-15.7) gm/dl Hct (34.1-44.9) % MCV (79.4-94.8) fl MCH (25.6-32.2) pg MCHC (32.2-35.5) g/dl RDW Std Deviation (36.4-46.3) fL Plt Count (182-369) K/mm3 MPV (9.4-12.3) fl Neut % (Auto) (34.0-71.1) % Lymph % (Auto) (19.3-51.7) % Preston % (Auto) (4.7-12.5) % Eos % (Auto) (0.7-5.8) Baso % (Auto) (0.1-1.2) % Neut # (Auto) (1.56-6.13) K/mm3 Lymph # (Auto) (1.18-3.74) K/mm3 Preston # (Auto) (0.24-0.36) K/mm3 Eos # (Auto) (0.04-0.36) K/mm3 Baso # (Auto) (0.01-0.08) K/mm3 Manual Slide Review Sodium 135 L (136-145) mEq/L Potassium 3.9 (3.5-5.1) mEq/L Chloride 103 (98-107) mEq/L Carbon Dioxide 23 (21-32) mEq/L Anion Gap 12.9 (5-15) BUN 27 H (7-18) mg/dL Creatinine 0.6 (0.55-1.02) mg/dL Est Cr Clr Drug Dosing 66.13 mL/min Estimated GFR (MDRD) > 60 (>60) mL/min BUN/Creatinine Ratio 45.0 H (14-18) Glucose 144 H (83-115) mg/dL POC Glucose (83-110) mg/dL Calcium 7.6 L (8.5-10.1) mg/dL Iron 57 (50-170) ug/dL TIBC 231 (100-400) ug/dL % Saturation 25 (20-55) % Transferrin 185 L (202-364) mg/dL Ferritin 422 H (8-252) ng/ml C-Reactive Protein < 0.2 (<1.0) mg/dL Procalcitonin ng/mL 08/10/20 Range/Units 13:06 WBC (3.98-10.04) K/mm3 RBC (3.98-5.22) M/mm3 Hgb 8.9 L (11.2-15.7) gm/dl Hct 27.8 L (34.1-44.9) % MCV (79.4-94.8) fl MCH (25.6-32.2) pg MCHC (32.2-35.5) g/dl RDW Std Deviation (36.4-46.3) fL Plt Count (182-369) K/mm3 MPV (9.4-12.3) fl Neut % (Auto) (34.0-71.1) % Lymph % (Auto) (19.3-51.7) % Preston % (Auto) (4.7-12.5) % Eos % (Auto) (0.7-5.8) Baso % (Auto) (0.1-1.2) % Neut # (Auto) (1.56-6.13) K/mm3 Lymph # (Auto) (1.18-3.74) K/mm3 Preston # (Auto) (0.24-0.36) K/mm3 Eos # (Auto) (0.04-0.36) K/mm3 Baso # (Auto) (0.01-0.08) K/mm3 Manual Slide Review Sodium (136-145) mEq/L Potassium (3.5-5.1) mEq/L Chloride (98-107) mEq/L Carbon Dioxide (21-32) mEq/L Anion Gap (5-15) BUN (7-18) mg/dL Creatinine (0.55-1.02) mg/dL Est Cr Clr Drug Dosing mL/min Estimated GFR (MDRD) (>60) mL/min BUN/Creatinine Ratio (14-18) Glucose (83-115) mg/dL POC Glucose (83-110) mg/dL Calcium (8.5-10.1) mg/dL Iron (50-170) ug/dL TIBC (100-400) ug/dL % Saturation (20-55) % Transferrin (202-364) mg/dL Ferritin (8-252) ng/ml C-Reactive Protein (<1.0) mg/dL Procalcitonin ng/mL Med Orders - Current: Current Medications Acetaminophen (Tylenol) 650 mg PO Q4H PRN PRN Reason: Pain (Mild 1-3)/fever Last Admin: 08/07/20 21:08 Dose: 650 mg Documented by: Al Hydroxide/Mg Hydroxide (Mag-Al Plus) 30 ml PO Q8H PRN PRN Reason: Indigestion Last Admin: 08/05/20 18:53 Dose: 30 ml Documented by: Albuterol (Proventil Neb Soln) 2.5 mg NEB Q2H PRN PRN Reason: Shortness Of Breath/wheezing Last Admin: 07/29/20 05:30 Dose: 2.5 mg Documented by: Albuterol/Ipratropium (Duoneb 3.0-0.5 Mg/3 Ml) 3 ml NEB Q4H PRN PRN Reason: Shortness Of Breath/wheezing Benzocaine/Menthol (Cepacol Sore Throat) 1 lozenge MUCMEM Q2H PRN PRN Reason: Sore Throat Last Admin: 08/09/20 19:44 Dose: 1 lozenge Documented by: Benzonatate (Tessalon Perles) 100 mg PO TID PRN PRN Reason: COUGH Last Admin: 08/05/20 20:17 Dose: 100 mg Documented by: Cholecalciferol (Vitamin D3) 5,000 unit PO DAILY NAILA Last Admin: 08/10/20 09:08 Dose: 5,000 unit Documented by: Docusate Sodium (Colace) 100 mg PO BID PRN PRN Reason: Constipation Last Admin: 08/10/20 12:05 Dose: 100 mg Documented by: Guaifenesin/Codeine Phosphate (Robitussin Ac) 5 ml PO Q4H PRN PRN Reason: Cough Last Admin: 08/04/20 21:40 Dose: 5 ml Documented by: Guaifenesin/Phenylephrine HCl (Robitussin Dm) 10 ml PO Q4H PRN PRN Reason: Cough Last Admin: 08/05/20 18:54 Dose: 10 ml Documented by: Cefepime HCl 2 gm/ Premix 50 mls @ 100 mls/hr IV Q12H [facility] Last Admin: 08/10/20 15:31 Dose: 100 mls/hr Documented by: Vancomycin HCl 1 gm/ Sodium (Chloride) 250 mls @ 250 mls/hr IV Q12H [facility] Last Admin: 08/10/20 04:23 Dose: 250 mls/hr Documented by: Levothyroxine Sodium (Synthroid) 88 mcg PO ACBREAKFAST [facility] Last Admin: 08/10/20 09:33 Dose: Not Given Documented by: Methylprednisolone Sodium Succinate (Solu-Medrol) 40 mg IVPUSH Q12H [facility] Last Admin: 08/10/20 09:33 Dose: 40 mg Documented by: Ondansetron HCl (Zofran) 4 mg IV Q4H PRN PRN Reason: Nausea/Vomiting Pantoprazole Sodium (Protonix Iv) 40 mg IVPUSH Q12H [facility] [place] Last Admin: 08/10/20 09:08 Dose: 40 mg Documented by: Senna/Docusate Sodium (Senna Plus) 1 tab PO BID [facility] Simethicone (Simethicone) 80 mg PO Q6H PRN PRN Reason: Gas pains Last Admin: 08/07/20 21:08 Dose: 80 mg Documented by: Sodium Chloride (Saline Flush) 10 ml FLUSH ONARRIVE [facility] Last Admin: 07/27/20 21:43 Dose: 10 ml Documented by: Vancomycin HCl (Pharmacy To Dose - Vancomycin) 0 dose .XX ASDIRECTED PRN PRN Reason: RX TO DOSE VANCOMYCIN Zinc Sulfate (Zincate) 220 mg PO DAILY [facility] Last Admin: 08/10/20 09:08 Dose: 220 mg Documented by: Discontinued Medications Aspirin (Halfprin) 81 mg PO DAILY [facility] Last Admin: 08/07/20 08:15 Dose: 81 mg Documented by: Azithromycin (Zithromax) 500 mg PO DAILY [facility] Stop: 07/30/20 09:01 Last Admin: 07/30/20 09:20 Dose: 500 mg Documented by: Benzonatate (Tessalon Perles) 100 mg PO TID PRN PRN Reason: Cough Last Admin: 07/30/20 11:35 Dose: 100 mg Documented by: Dexamethasone (Decadron) 6 mg IVPUSH ONETIME [facility] Stop: 07/27/20 22:03 Last Admin: 07/27/20 22:14 Dose: 6 mg Documented by: Dexamethasone (Dexamethasone) 6 mg PO BEDTIME NAILA Stop: 08/05/20 21:01 Last Admin: 08/05/20 20:16 Dose: 6 mg Documented by: Diphenhydramine HCl (Benadryl) 25 mg IVPUSH ONETIME ONE Stop: 08/08/20 15:46 Last Admin: 08/08/20 15:42 Dose: 25 mg Documented by: Enoxaparin Sodium (Lovenox) 40 mg SUBCUT DAILY [facility] Last Admin: 07/28/20 08:33 Dose: 40 mg Documented by: Enoxaparin Sodium (Lovenox) 40 mg SUBCUT BID [facility] Last Admin: 08/07/20 21:07 Dose: 40 mg Documented by: Sodium Chloride (Normal Saline) 1,000 mls @ 100 mls/hr IV ASDIRECTED [facility] Stop: 07/29/20 00:03 Last Admin: 07/27/20 20:50 Dose: 100 mls/hr Documented by: Sodium Chloride (Normal Saline) 100 mls @ 60 mls/min IV ASDIRECTED [facility] Last Admin: 07/27/20 21:43 Dose: 60 mls/min Documented by: Remdesivir 200 mg/ Sodium (Chloride) 250 mls @ 250 mls/hr IV ONETIME ONE Stop: 07/27/20 22:45 Last Admin: 07/28/20 00:00 Dose: 250 mls/hr Documented by: Remdesivir 100 mg/ Sodium (Chloride) 100 mls @ 100 mls/hr IV Q24H [facility] [place] Stop: 07/31/20 22:59 Last Admin: 07/31/20 21:50 Dose: 100 mls/hr Documented by: Ceftriaxone Sodium 2 gm/ (Sodium Chloride) 100 mls @ 200 mls/hr IV Q24H [facility] [place] Stop: 08/01/20 09:59 Last Admin: 08/01/20 08:57 Dose: 200 mls/hr Documented by: Levofloxacin/Dextrose 500 mg/ (Premix) 100 mls @ 100 mls/hr IV Q24H [facility] [place] Last Admin: 08/08/20 15:18 Dose: 100 mls/hr Documented by: Sodium Chloride (Normal Saline) 500 mls @ 500 mls/hr IV ONETIME ONE Stop: 08/07/20 23:09 Last Admin: 08/07/20 22:15 Dose: 500 mls/hr Documented by: Sodium Chloride (Normal Saline) Confirm Administered Dose 500 mls @ as directed .ROUTE .STK-MED ONE Stop: 08/07/20 22:14 Last Admin: 08/07/20 22:24 Dose: Not Given Documented by: Sodium Chloride (Normal Saline) 500 mls @ 999 mls/hr IV .BOLUS ONE Stop: 08/08/20 12:19 Last Admin: 08/08/20 12:58 Dose: Not Given Documented by: Vancomycin HCl 1 gm/Vancomycin HCl 500 mg/ Sodium Chloride 500 mls @ 250 mls/hr IV ONETIME ONE Stop: 08/08/20 18:59 Last Admin: 08/08/20 16:51 Dose: 250 mls/hr Documented by: Iopamidol (Isovue-370 (76%)) 100 ml IVPUSH ONETIME ONE Stop: 07/27/20 20:54 Last Admin: 07/27/20 21:43 Dose: 100 ml Documented by: Levothyroxine Sodium (Synthroid) 88 mcg PO DAILY [facility] Last Admin: 08/10/20 09:08 Dose: 88 mcg Documented by: Methylprednisolone Sodium Succinate (Solu-Medrol) 60 mg IVPUSH Q8H [facility] Last Admin: 08/10/20 15:29 Dose: 60 mg Documented by: Non-Formulary Medication (Nf Drug) 1 each PO DAILY [facility] Last Admin: 07/30/20 14:02 Dose: Not Given Documented by: Pantoprazole Sodium (Protonix Iv) 80 mg IVPUSH BOLUS STA Stop: 08/07/20 22:06 Last Admin: 08/07/20 22:19 Dose: 80 mg Documented by: Potassium Chloride (Klor-Con M20) 40 meq PO ONETIME ONE Stop: 07/27/20 22:47 Last Admin: 07/28/20 00:18 Dose: 40 meq Documented by: Sepsis Event Note - Focused Exam Vital Signs: Vital Signs Temp Pulse Resp BP BP Pulse Ox Pulse Ox 08/10/20 12:00 36.4 C 92 30 H 135/76 92 L 08/10/20 08:11 88 L 08/10/20 08:00 36.8 C 80 25 H 112/64 94 L 08/10/20 06:35 93 L 08/10/20 06:10 95 08/10/20 03:54 36.6 C 89 34 H 118/55 L 91 L - Problem List & Annotations (1) Acute respiratory failure due to COVID-19 SNOMED Code(s): 330028386 Code(s): U07.1 - COVID-19; J96.00 - ACUTE RESPIRATORY FAILURE, UNSP W HYPOXIA OR HYPERCAPNIA Status: Acute Priority: High Current Visit: Yes (2) Hypertension SNOMED Code(s): 02896015 Code(s): I10 - ESSENTIAL (PRIMARY) HYPERTENSION Status: Chronic Priority: Medium Current Visit: No Qualifiers: Hypertension type: unspecified Qualified Code(s): I10 - Essential (primary) hypertension - My Orders Last 24 Hours: My Active Orders 08/10/20 11:16 Docusate Sodium [Colace] 100 mg PO BID PRN - Assessment Assessment:: I have seen and evaluated the patient independently of Derrick Ohara PA-C. I have reviewed and agree with the plan of care as outlined by him for this patient. Please see orders. - Plan Plan:: I have seen and evaluated the patient independently of Derrick Ohara PA-C. I have reviewed and agree with the plan of care as outlined by him for this patient. Please see orders.
[2020-08-10] MEDS: Levothyroxine 88 MCG Tab PO SCH ×2 (09:08→09:33)
[2020-08-10] MEDS: Pantoprazole 40 MG Vial IVPUSH SCH ×2 (09:08→20:00)
[2020-08-10] MEDS: Zinc Sulfate 220 MG Cap PO SCH (09:08)
[2020-08-10] MEDS: Cholecalciferol (Vitamin D3) 5,000 UNIT Cap PO SCH (09:08)
[2020-08-10] MEDS: methylPREDNISolone Sodium Succinate 40 MG/1 ML SDV IVPUSH SCH ×5 (09:09→20:00)
[2020-08-10] MEDS ORDERED: Docusate Sodium 100 MG Cap PO PRN (11:16)
--- NOTE | 2020-08-10 16:24 | CT ---
CT chest Technique: Multiple axial sections were obtained from above the lung apices inferiorly through the lung bases. Intravenous and oral contrast not utilized. Comparison: Previous angiogram of chest CT of 07/27/20. Findings: Thoracic aorta shows calcification no aneurysm. Mediastinum shows no adenopathy. Mild coronary artery calcification is seen. No pericardial thickening is appreciated. Small hiatal hernia is noted. Large calcification is seen within the parenchyma of the right kidney measuring 1.7 cm. Diffuse parenchymal densities are seen throughout both lungs. Bone window setting shows scattered degenerative spurring within the spine with diffuse disc space narrowing. Impression: 1. Diffuse parenchymal change within both sides of the chest. Findings are minimally worse from prior study. Please correlate as to etiology. 2. Other findings as noted above which are felt to be incidental. Diagnostic code #3
[2020-08-10] MEDS ORDERED: Sodium Chloride 0.9% 250 ML ONE (17:22)
[2020-08-10] MEDS: Acetaminophen 325 MG Tab PO PRN (20:10)
[2020-08-11] MEDS: Codeine/guaiFENesin 10-100 MG/5 ML Syrup 5 ML Cup PO PRN (02:55)
[2020-08-11] MEDS: Cefepime 2 GM in Premix Bag 1 BAG IV SCH (03:55)
[2020-08-11] MEDS: Levothyroxine 88 MCG Tab PO SCH (05:52)
--- NOTE | 2020-08-11 07:40 | PCM.PN ---
- General Info Date of Service: 08/11/20 Admission Dx/Problem (Free Text): Admission Diagnosis/Problem Admission Diagnosis/Problem Hypoxemia, COVID-19 infection Functional Status: Reports: Pain Controlled, Tolerating Diet, Urinating, Incentive Spirometry, Other (acapella ). Denies: Ambulating (stood with therapies ), New Symptoms - Review of Systems General: Reports: No Symptoms, Weakness, Fatigue. Denies: Fever, Malaise, Ch ills HEENT: Reports: No Symptoms. Denies: Headaches, Sore Throat Pulmonary: Reports: Shortness of Breath, Cough, Sputum. Denies: Wheezing Cardiovascular: Reports: Dyspnea on Exertion. Denies: Chest Pain, Palpitations, Lightheadedness Gastrointestinal: Reports: Constipation. Denies: Abdominal Pain, Diarrhea, Nausea, Vomiting Genitourinary: Reports: No Symptoms. Denies: Pain Musculoskeletal: Reports: No Symptoms Skin: Reports: No Symptoms. Denies: Cyanosis Neurological: Reports: Dizziness (with standing ), Difficulty Walking, Weakness, Gait Disturbance. Denies: Confusion Psychiatric: Reports: No Symptoms - Patient Data Vitals - Most Recent: Last Vital Signs Temp 98.2 F 08/11/20 04:00 Pulse 92 08/10/20 12:00 Resp 20 08/11/20 04:00 BP 128/70 08/11/20 04:00 Pulse Ox 94 L 08/11/20 06:05 Weight - Most Recent: 197 lb 2.233 oz I&O - Last 24 Hours: Intake & Output 08/10/20 08/11/20 08/11/20 22:59 06:59 14:59 Intake Total 672 300 Output Total 475 825 Balance 197 -525 Lab Results Last 24 Hours: Laboratory Results - last 24 hr 08/10/20 08/10/20 08/10/20 Range/Units 05:58 05:58 13:06 WBC (3.98-10.04) K/mm3 RBC (3.98-5.22) M/mm3 Hgb 8.9 L (11.2-15.7) gm/dl Hct 27.8 L (34.1-44.9) % MCV (79.4-94.8) fl MCH (25.6-32.2) pg MCHC (32.2-35.5) g/dl RDW Std Deviation (36.4-46.3) fL Plt Count (182-369) K/mm3 MPV (9.4-12.3) fl Neut % (Auto) (34.0-71.1) % Lymph % (Auto) (19.3-51.7) % [place] % (Auto) (4.7-12.5) % Eos % (Auto) (0.7-5.8) Baso % (Auto) (0.1-1.2) % Neut # (Auto) (1.56-6.13) K/mm3 Lymph # (Auto) (1.18-3.74) K/mm3 [place] # (Auto) (0.24-0.36) K/mm3 Eos # (Auto) (0.04-0.36) K/mm3 Baso # (Auto) (0.01-0.08) K/mm3 Sodium (136-145) mEq/L Potassium (3.5-5.1) mEq/L Chloride (98-107) mEq/L Carbon Dioxide (21-32) mEq/L Anion Gap (5-15) BUN (7-18) mg/dL Creatinine (0.55-1.02) mg/dL Est Cr Clr Drug Dosing mL/min Estimated GFR (MDRD) (>60) mL/min BUN/Creatinine Ratio (14-18) Glucose (83-115) mg/dL POC Glucose (83-110) mg/dL Calcium (8.5-10.1) mg/dL Iron 57 (50-170) ug/dL TIBC 231 (100-400) ug/dL % Saturation 25 (20-55) % Transferrin 185 L (202-364) mg/dL Ferritin 422 H (8-252) ng/ml C-Reactive Protein (<1.0) mg/dL Vancomycin Trough (10.0-20.0) 08/10/20 08/10/20 08/11/20 Range/Units 16:05 21:07 05:50 WBC 21.28 H (3.98-10.04) K/mm3 RBC 2.49 L (3.98-5.22) M/mm3 Hgb 7.3 L* D (11.2-15.7) gm/dl Hct 23.2 L (34.1-44.9) % MCV 93.2 (79.4-94.8) fl MCH 29.3 (25.6-32.2) pg MCHC 31.5 L (32.2-35.5) g/dl RDW Std Deviation 44.0 (36.4-46.3) fL Plt Count 179 L (182-369) K/mm3 MPV 10.9 (9.4-12.3) fl Neut % (Auto) 89.8 H (34.0-71.1) % Lymph % (Auto) 3.9 L (19.3-51.7) % [place] % (Auto) 5.1 (4.7-12.5) % Eos % (Auto) 0 L (0.7-5.8) Baso % (Auto) 0.0 L (0.1-1.2) % Neut # (Auto) 19.11 H (1.56-6.13) K/mm3 Lymph # (Auto) 0.82 L (1.18-3.74) K/mm3 [place] # (Auto) 1.08 H (0.24-0.36) K/mm3 Eos # (Auto) 0.00 L (0.04-0.36) K/mm3 Baso # (Auto) 0.01 (0.01-0.08) K/mm3 Sodium (136-145) mEq/L Potassium (3.5-5.1) mEq/L Chloride (98-107) mEq/L Carbon Dioxide (21-32) mEq/L Anion Gap (5-15) BUN (7-18) mg/dL Creatinine (0.55-1.02) mg/dL Est Cr Clr Drug Dosing mL/min Estimated GFR (MDRD) (>60) mL/min BUN/Creatinine Ratio (14-18) Glucose (83-115) mg/dL POC Glucose 217 H (83-110) mg/dL Calcium (8.5-10.1) mg/dL Iron (50-170) ug/dL TIBC (100-400) ug/dL % Saturation (20-55) % Transferrin (202-364) mg/dL Ferritin (8-252) ng/ml C-Reactive Protein (<1.0) mg/dL Vancomycin Trough 10.4 (10.0-20.0) 08/11/20 Range/Units 05:50 WBC (3.98-10.04) K/mm3 RBC (3.98-5.22) M/mm3 Hgb (11.2-15.7) gm/dl Hct (34.1-44.9) % MCV (79.4-94.8) fl MCH (25.6-32.2) pg MCHC (32.2-35.5) g/dl RDW Std Deviation (36.4-46.3) fL Plt Count (182-369) K/mm3 MPV (9.4-12.3) fl Neut % (Auto) (34.0-71.1) % Lymph % (Auto) (19.3-51.7) % [place] % (Auto) (4.7-12.5) % Eos % (Auto) (0.7-5.8) Baso % (Auto) (0.1-1.2) % Neut # (Auto) (1.56-6.13) K/mm3 Lymph # (Auto) (1.18-3.74) K/mm3 [place] # (Auto) (0.24-0.36) K/mm3 Eos # (Auto) (0.04-0.36) K/mm3 Baso # (Auto) (0.01-0.08) K/mm3 Sodium 136 (136-145) mEq/L Potassium 3.9 (3.5-5.1) mEq/L Chloride 104 (98-107) mEq/L Carbon Dioxide 24 (21-32) mEq/L Anion Gap 11.9 (5-15) BUN 25 H (7-18) mg/dL Creatinine 0.7 (0.55-1.02) mg/dL Est Cr Clr Drug Dosing 56.68 mL/min Estimated GFR (MDRD) > 60 (>60) mL/min BUN/Creatinine Ratio 35.7 H (14-18) Glucose 137 H (83-115) mg/dL POC Glucose (83-110) mg/dL Calcium 7.6 L (8.5-10.1) mg/dL Iron (50-170) ug/dL TIBC (100-400) ug/dL % Saturation (20-55) % Transferrin (202-364) mg/dL Ferritin (8-252) ng/ml C-Reactive Protein 0.3 (<1.0) mg/dL Vancomycin Trough (10.0-20.0) Med Orders - Current: Current Medications Acetaminophen (Tylenol) 650 mg PO Q4H PRN PRN Reason: Pain (Mild 1-3)/fever Last Admin: 08/10/20 20:10 Dose: 650 mg Documented by: Al Hydroxide/Mg Hydroxide (Mag-Al Plus) 30 ml PO Q8H PRN PRN Reason: Indigestion Last Admin: 08/05/20 18:53 Dose: 30 ml Documented by: Albuterol (Proventil Neb Soln) 2.5 mg NEB Q2H PRN PRN Reason: Shortness Of Breath/wheezing Last Admin: 07/29/20 05:30 Dose: 2.5 mg Documented by: Albuterol/Ipratropium (Duoneb 3.0-0.5 Mg/3 Ml) 3 ml NEB Q4H PRN PRN Reason: Shortness Of Breath/wheezing Benzocaine/Menthol (Cepacol Sore Throat) 1 lozenge MUCMEM Q2H PRN PRN Reason: Sore Throat Last Admin: 08/09/20 19:44 Dose: 1 lozenge Documented by: Benzonatate (Tessalon Perles) 100 mg PO TID PRN PRN Reason: COUGH Last Admin: 08/05/20 20:17 Dose: 100 mg Documented by: Cholecalciferol (Vitamin D3) 5,000 unit PO DAILY [facility] Last Admin: 08/10/20 09:08 Dose: 5,000 unit Documented by: Docusate Sodium (Colace) 100 mg PO BID PRN PRN Reason: Constipation Last Admin: 08/10/20 12:05 Dose: 100 mg Documented by: Guaifenesin/Codeine Phosphate (Robitussin Ac) 5 ml PO Q4H PRN PRN Reason: Cough Last Admin: 08/11/20 02:55 Dose: 5 ml Documented by: Guaifenesin/Phenylephrine HCl (Robitussin Dm) 10 ml PO Q4H PRN PRN Reason: Cough Last Admin: 08/05/20 18:54 Dose: 10 ml Documented by: Cefepime HCl 2 gm/ Premix 50 mls @ 100 mls/hr IV Q12H [facility] Last Admin: 08/11/20 03:55 Dose: 100 mls/hr Documented by: Vancomycin HCl 1 gm/ Sodium (Chloride) 250 mls @ 250 mls/hr IV Q8H [facility] Last Admin: 08/11/20 00:50 Dose: 250 mls/hr Documented by: Levothyroxine Sodium (Synthroid) 88 mcg PO ACBREAKFAST [facility] Last Admin: 08/11/20 05:52 Dose: 88 mcg Documented by: Methylprednisolone Sodium Succinate (Solu-Medrol) 40 mg IVPUSH Q12H [facility] Last Admin: 08/10/20 20:00 Dose: 40 mg Documented by: Ondansetron HCl (Zofran) 4 mg IV Q4H PRN PRN Reason: Nausea/Vomiting Pantoprazole Sodium (Protonix Iv) 40 mg IVPUSH Q12H [facility] Last Admin: 08/10/20 20:00 Dose: 40 mg Documented by: Senna/Docusate Sodium (Senna Plus) 1 tab PO BID [facility] Last Admin: 08/10/20 20:00 Dose: 1 tab Documented by: Simethicone (Simethicone) 80 mg PO Q6H PRN PRN Reason: Gas pains Last Admin: 08/07/20 21:08 Dose: 80 mg Documented by: Sodium Chloride (Saline Flush) 10 ml FLUSH ONARRIVE [facility] Last Admin: 07/27/20 21:43 Dose: 10 ml Documented by: Vancomycin HCl (Pharmacy To Dose - Vancomycin) 0 dose .XX ASDIRECTED PRN PRN Reason: RX TO DOSE VANCOMYCIN Zinc Sulfate (Zincate) 220 mg PO DAILY [facility] Last Admin: 08/10/20 09:08 Dose: 220 mg Documented by: Discontinued Medications Aspirin (Halfprin) 81 mg PO DAILY [facility] Last Admin: 08/07/20 08:15 Dose: 81 mg Documented by: Azithromycin (Zithromax) 500 mg PO DAILY [facility] Stop: 07/30/20 09:01 Last Admin: 07/30/20 09:20 Dose: 500 mg Documented by: Benzonatate (Tessalon Perles) 100 mg PO TID PRN PRN Reason: Cough Last Admin: 07/30/20 11:35 Dose: 100 mg Documented by: Dexamethasone (Decadron) 6 mg IVPUSH ONETIME STA Stop: 07/27/20 22:03 Last Admin: 07/27/20 22:14 Dose: 6 mg Documented by: Dexamethasone (Dexamethasone) 6 mg PO BEDTIME [facility] Stop: 08/05/20 21:01 Last Admin: 08/05/20 20:16 Dose: 6 mg Documented by: Diphenhydramine HCl (Benadryl) 25 mg IVPUSH ONETIME ONE Stop: 08/08/20 15:46 Last Admin: 08/08/20 15:42 Dose: 25 mg Documented by: Enoxaparin Sodium (Lovenox) 40 mg SUBCUT DAILY [facility] Last Admin: 07/28/20 08:33 Dose: 40 mg Documented by: Enoxaparin Sodium (Lovenox) 40 mg SUBCUT BID [facility] Last Admin: 08/07/20 21:07 Dose: 40 mg Documented by: Sodium Chloride (Normal Saline) 1,000 mls @ 100 mls/hr IV ASDIRECTED [facility] Stop: 07/29/20 00:03 Last Admin: 07/27/20 20:50 Dose: 100 mls/hr Documented by: Sodium Chloride (Normal Saline) 100 mls @ 60 mls/min IV ASDIRECTED [facility] Last Admin: 07/27/20 21:43 Dose: 60 mls/min Documented by: Remdesivir 200 mg/ Sodium (Chloride) 250 mls @ 250 mls/hr IV ONETIME ONE Stop: 07/27/20 22:45 Last Admin: 07/28/20 00:00 Dose: 250 mls/hr Documented by: Remdesivir 100 mg/ Sodium (Chloride) 100 mls @ 100 mls/hr IV Q24H [facility] Stop: 07/31/20 22:59 Last Admin: 07/31/20 21:50 Dose: 100 mls/hr Documented by: Ceftriaxone Sodium 2 gm/ (Sodium Chloride) 100 mls @ 200 mls/hr IV Q24H [facility] Stop: 08/01/20 09:59 Last Admin: 08/01/20 08:57 Dose: 200 mls/hr Documented by: Levofloxacin/Dextrose 500 mg/ (Premix) 100 mls @ 100 mls/hr IV Q24H [facility] Last Admin: 08/08/20 15:18 Dose: 100 mls/hr Documented by: Sodium Chloride (Normal Saline) 500 mls @ 500 mls/hr IV ONETIME ONE Stop: 08/07/20 23:09 Last Admin: 08/07/20 22:15 Dose: 500 mls/hr Documented by: Sodium Chloride (Normal Saline) Confirm Administered Dose 500 mls @ as directed .ROUTE .STK-MED ONE Stop: 08/07/20 22:14 Last Admin: 08/07/20 22:24 Dose: Not Given Documented by: Sodium Chloride (Normal Saline) 500 mls @ 999 mls/hr IV .BOLUS ONE Stop: 08/08/20 12:19 Last Admin: 08/08/20 12:58 Dose: Not Given Documented by: Vancomycin HCl 1 gm/Vancomycin HCl 500 mg/ Sodium Chloride 500 mls @ 250 mls/hr IV ONETIME ONE Stop: 08/08/20 18:59 Last Admin: 08/08/20 16:51 Dose: 250 mls/hr Documented by: Vancomycin HCl 1 gm/ Sodium (Chloride) 250 mls @ 250 mls/hr IV Q12H [facility] Last Admin: 08/10/20 04:23 Dose: 250 mls/hr Documented by: Sodium Chloride (Normal Saline (Advbag)) Confirm Administered Dose 250 mls @ as directed .ROUTE .STK-MED ONE Stop: 08/10/20 17:23 Last Admin: 08/10/20 17:32 Dose: 250 mls/hr Documented by: Iopamidol (Isovue-370 (76%)) 100 ml IVPUSH ONETIME ONE Stop: 07/27/20 20:54 Last Admin: 07/27/20 21:43 Dose: 100 ml Documented by: Levothyroxine Sodium (Synthroid) 88 mcg PO DAILY [facility] Last Admin: 08/10/20 09:08 Dose: 88 mcg Documented by: Methylprednisolone Sodium Succinate (Solu-Medrol) 60 mg IVPUSH Q8H [facility] Last Admin: 08/10/20 15:29 Dose: 60 mg Documented by: Methylprednisolone Sodium Succinate (Solu-Medrol) 40 mg IVPUSH Q12H [facility] Last Admin: 08/10/20 16:08 Dose: Not Given Documented by: Non-Formulary Medication (Nf Drug) 1 each PO DAILY [facility] Last Admin: 07/30/20 14:02 Dose: Not Given Documented by: Pantoprazole Sodium (Protonix Iv) 80 mg IVPUSH BOLUS STA Stop: 08/07/20 22:06 Last Admin: 08/07/20 22:19 Dose: 80 mg Documented by: Potassium Chloride (Klor-Con M20) 40 meq PO ONETIME ONE Stop: 07/27/20 22:47 Last Admin: 07/28/20 00:18 Dose: 40 meq Documented by: - Exam Quality Assessment: Supplemental Oxygen (6L ), Urine Catheter, DVT Prophylaxis General: Alert, Oriented, Cooperative, No Acute Distress HEENT: Pupils Equal, Pupils Reactive, Mucous Membr. Moist/[place] Neck: Supple, Trachea Midline Lungs: Decreased Breath Sounds, Crackles Cardiovascular: Regular Rate, Regular Rhythm GI/Abdominal Exam: Normal Bowel Sounds, Soft, Non-Tender, No Distention (Female) Exam: Deferred Back Exam: Normal Inspection, Full Range of Motion Extremities: Normal Inspection, Normal Range of Motion, Non-Tender, No Pedal Edema, Normal Capillary Refill Skin: Warm, Dry, Intact Neurological: No New Focal Deficit Psy/Mental Status: Alert, Normal Affect, Normal Mood Sepsis Event Note - Evaluation Sepsis Screening Result: Sepsis Risk - Focused Exam Vital Signs: Vital Signs Temp Resp BP Pulse Ox Pulse Ox 08/11/20 06:05 94 L 08/11/20 04:00 98.2 F 20 128/70 94 L 08/11/20 00:00 98.1 F 20 112/67 95 08/10/20 20:00 98.1 F 25 H 141/82 H 94 L 08/10/20 19:59 94 L - Problem List & Annotations (1) COVID-19 SNOMED Code(s): 404604551 Code(s): U07.1 - COVID-19 Status: Acute Priority: High Current Visit: Yes (2) Hypoxia SNOMED Code(s): 933453355 Code(s): R09.02 - HYPOXEMIA Status: Acute Priority: High Current Visit: Yes (3) Hypokalemia SNOMED Code(s): 71387485 Code(s): E87.6 - HYPOKALEMIA Status: Acute Priority: High Current Visit: Yes (4) Elevated d-dimer SNOMED Code(s): 191767150 Code(s): R79.89 - OTHER SPECIFIED ABNORMAL FINDINGS OF BLOOD CHEMISTRY Status: Acute Priority: High Current Visit: Yes (5) Hypothyroidism SNOMED Code(s): 07748986 Code(s): E03.9 - HYPOTHYROIDISM, UNSPECIFIED Status: Chronic Priority: Low Current Visit: No Qualifiers: Hypothyroidism type: unspecified Qualified Code(s): E03.9 - Hypothyroidism, unspecified (6) Hypertension SNOMED Code(s): 01940411 Code(s): I10 - ESSENTIAL (PRIMARY) HYPERTENSION Status: Chronic Priority: Medium Current Visit: No Qualifiers: Hypertension type: unspecified Qualified Code(s): I10 - Essential (primary) hypertension (7) Hyponatremia SNOMED Code(s): 04575040 Code(s): E87.1 - HYPO-OSMOLALITY AND HYPONATREMIA Status: Acute Current Visit: Yes (8) Transaminitis SNOMED Code(s): 837391003, 249838116 Code(s): R74.01 - ELEVATION OF LEVELS OF LIVER TRANSAMINASE LEVELS Status: Acute Current Visit: Yes (9) Obesity (BMI 30.0-34.9) SNOMED Code(s): 378192056083476 Code(s): E66.9 - OBESITY, UNSPECIFIED Status: Chronic Priority: Medium Current Visit: Yes (10) Hyperglycemia SNOMED Code(s): 10645658 Code(s): R73.9 - HYPERGLYCEMIA, UNSPECIFIED Status: Acute Priority: High Current Visit: Yes (11) GI bleed SNOMED Code(s): 86236110 Code(s): K92.2 - GASTROINTESTINAL HEMORRHAGE, UNSPECIFIED Status: Resolved Priority: High Current Visit: Yes Qualifiers: GI bleed type/associated pathology: unspecified gastrointestinal hemorrhage type Qualified Code(s): K92.2 - Gastrointestinal hemorrhage, unspecified (12) Hypotension SNOMED Code(s): 63554956 Code(s): I95.9 - HYPOTENSION, UNSPECIFIED Status: Resolved Priority: High Current Visit: Yes Qualifiers: Hypotension type: unspecified hypotension type Qualified Code(s): I95.9 - Hypotension, unspecified (13) Adverse drug reaction SNOMED Code(s): 16383002 Code(s): T50.905A - ADVERSE EFFECT OF UNSP DRUG/MEDS/BIOL SUBST, INIT Status: Resolved Priority: High Current Visit: Yes Qualifiers: Encounter type: initial encounter Qualified Code(s): T50.905A - Adverse effect of unspecified drugs, medicaments and biological substances, initial encounter - Problem List Review Problem List Initiated/Reviewed/Updated: Yes - My Orders Last 24 Hours: My Active Orders 08/10/20 07:14 Patient Status [ADT] Routine 08/10/20 17:00 Vancomycin [Vancocin] 1 gm Sodium Chloride 0.9% [Normal Saline (AdvBag)] 250 ml IV Q8H 08/10/20 21:00 Docusate Sodium/Sennosides [Senna Plus] 1 tab PO BID methylPREDNISolone Sod Succ [Solu-MEDROL] 40 mg IVPUSH Q12H 08/11/20 05:50 CBC WITH AUTO DIFF [HEME] AM 08/11/20 07:38 PACKED CELLS [RED BLOOD CELLS LP] [BBK] Routine TYPE AND SCREEN [BBK] Routine Transfuse Red Blood Cells [COMM] Routine 08/11/20 09:00 Furosemide [Lasix] 20 mg IVPUSH ONETIME ONE 08/11/20 16:00 VANCOMYCIN TROUGH [CHEM] Timed 08/12/20 05:11 BASIC METABOLIC PANEL,BMP [CHEM] AM CBC WITH AUTO DIFF [HEME] AM CRP [C-REACTIVE PROTEIN] [CHEM] AM 08/13/20 05:11 BASIC METABOLIC PANEL,BMP [CHEM] AM CBC WITH AUTO DIFF [HEME] AM CRP [C-REACTIVE PROTEIN] [CHEM] AM - Assessment Assessment:: Assessment - Day of admission 07/28/2020 (admitted overnight 07/27/2020): * 80 yo female who presents to ED with SOB, Fatigue, cough, and body aches * Denies fever, diarrhea, nausea/vomiting * hospitalized for COVID-19 after testing positive on 07/23/2020 * Oxygen saturations of 81% on room air in ED, 96% on 2L * 12-Lead EGK: NSR at 89 BPM with no signs of ischemia * CXR in ED: Bilateral hazy infiltrates, worse on right than on left * CTA in ED: Limited pulmonary arterial visualization, No evidence of central PE, Consider PAH, Diffuse pulmonary parenchymal abnormality Bilateral renal calculi * Labs: * WBC 9.32 * Hgb 14.0 * Plt 212 * D-dimer 2.59 * Sodium 133 * Potassium 3.3 * GFR >60 * Bilirubin 0.7 * AST 128, ALT 87, Alk phos 60 * Troponin 0.025 * Albumin 3.1 * Lactic acid 2.0 * Magnesium 2.0 * Pro-BNP 376 * ABG: pH 7.42, PCO2 37.6, PO2 55, HCO3 23.9, oxygen saturation 88.4 base excess 0.1, A-a gradient 48, on room air * TSH 0.897 * Influenza A and B - Negative * SARS-CoV-2 - positive * MRSA - negative * Admitted to [facility] for treatment of COVID-19, Hypokalemia, Hyponatremia, Hypoxia. 07/29/2020: * Remains on 2L oxygen (improved) * Continues to utilize acapella/IS * Denies any new complaints * Labs * D-dimer improved to 1.82 * WBC 10.49 (steroid?) * Sodium 138 * Potassium 4.5 * Glucose 160 * A1C 6.3 * AST 60, ALT 73, Alk Phos 51 * CRP 17.0 * Albumin 2.0 * Vitamin D 30.1 * Continue current treatment plan * Repots she feels better * Continued cough but non-productive 07/30/2020: * Continue current treatment * She remains on 2L oxygen * Rocephin 3/5 and Veklury 2/ day of treatment * Dexamethasone 6 mg po 09/20 * Completed Azithromycin * IS and beside pulmonary exercise * Vitamin D and zinc supplement * May benefit with proning * Encourage to ambulate side her room as many times as she can * PRN decongestant/expectorant * Titrate to come off supplemental O2 * DVT prophylaxis: Lovenox 40 mg subQ BID * Code status: full * LOS > 96 hrs for complete treatment of Veklury 07/31/2020: * Continue current treatment * She remains on 2L oxygen * Rocephin 4/5 and Veklury 3/4 day of treatment * Dexamethasone 6 mg po 10/18 * Completed Azithromycin * Encourage to use IS/FV and beside pulmonary exercise * Continue Vitamin D and zinc supplement * May benefit with proning * Encourage to ambulate side her room as many times as she can * PRN decongestant/expectorant * Titrate to come off supplemental O2 * DVT prophylaxis: Lovenox 40 mg subQ BID * Code status: full * LOS > 96 hrs for complete treatment of Veklury and hopefully off supplemental O2 08/01/2020 * Continue current treatment * Continues to utilize IS/Acapella * Reports she has been up ambulating but has noticed her endurance is less * Reports she has been trying to prone * On 3.4L o2 - working on weaning * Reports she continues to feel better but has cough * Labs: * WBC 14.87 * Hgb 15.0 * Plt 339,000 * GFR >60 * CRP 4.0 * Albumin 2.7 08/02/2020 * Requiring high flow today - 55L FiO2 of 60 * Continues to utilize IS/Acapella * Coughing frequently * Labs: * WBC 12.45 * Hgb 14.1 * Plt 370 * GFR >60 * D. Dimer 1.29 * CRP 4.2 * Albumin 2.4 * Blood glucose levels have been stable * Continue dexamethasone - day02/18 * SW working on placement - patient in agreement to look into [facility] at discharge 08/03/2020 * Improved high flow today - 40L at FiO2 of 40 * Continues to utilize IS and acapella * Continued cough * Continues to be worried we are upset that we are not happy with how long she is proning for - reassured. * Reports frequent belching - likely 2/2 High flow * No labs obtained today * Dexamethasone day 03/21 * [facility] continues to work on placement - likely [facility] at discharge. 08/04/2020 * Worsening High flow today 45L with FiO2 of 50 * Continues to utilize acapella and IS * Continues to prone as tolerated * No labs obtained today * Dexamethasone day 04/21 * Patient and accepted at [facility] after discharge * Added PRN simethicone for gas pains 08/05/2020 The patient is a 80-year-old lady who continues with acute respiratory failure due to COVID-19. She is currently on high flow oxygen and this will be continued to help keep her saturations above 92%. The patient also is awaiting placement. She has completed treatment for COVID-19 and I have removed her isolation. The patient will also be kept on her DVT prophylaxis. She has been encouraged to ambulate. The patient is also been advised to utilize incentives parameter. The patient is actively appropriate for discharge once placement is arranged. Repeat laboratory studies have been ordered for the morning. The patient will continue on her current diet as tolerated. 08/06/2020 The patient is a 80-year-old lady who still has acute respiratory failure due to COVID-19 infection. The patient will remain on high flow oxygen to help keep her saturations between 90 and 92%. She has completed treatment for the Covid already. The patient has been encouraged to ambulate. She also be kept on DVT prophylaxis. The patient is to have an appropriate diet as tolerated. Repeat laboratory studies have been ordered. She has also been encouraged to use incentive spirometer. The patient should be appropriate for discharge once placement has been arranged. The patient will need to have her oxygen weaned before transfer. 08/07/2020 The patient is a 80-year-old lady who is currently awaiting placement. She is still on high flow oxygen. Because of this I have ordered a chest x-ray. The patient will remain on oxygen to keep her saturations between 90 and 92%. The patient should also continue with her current diet. She has been encouraged to ambulate. She is on DVT prophylaxis. Repeat laboratory studies have been ordered. The patient should be appropriate for discharge once her oxygen demands have improved significantly and placement has been arranged and a bed is available. 08/08/2020 * Respiratory status worsening * On High Flow at 60L with 60% FiO2. * Stopped BID Lovenox due to nursing reporting frankly bloody stools * Positive occult stool * Given Protonix drip initially - changed to BID IVP Protonix * H/H trend: 15.0-->14.1-->13.8-->10.7-->9.5-->10.0 * Patient upgraded to ICU for closer monitoring * Labs: * WBC 19.60 * Hgb 10.0 * Hct 31.7 * Plt 228 * Sodium 139 * Potassium 4.4 * BUN 48 * Creatinin 0.8 * GFR >60 * ABG obtained in the left radial pH 7.47, PCO2 33.3, PO2 85, HCO3 23.7, O2 saturation 97.0, A-a gradient 301. Obtained while on high flow 60 L 60 FiO2. * Monitor need for intubation * Hypotensive with BP of 82/69 * 500mL IV fluid bolus given * Caution with IV fluids given COVID-19 status * Continue Airborne/Droplet isolation 08/09/2020 * Patient had allergic reaction last night due to Levaquin - was switched to cefepime and vancomycin * CXR shows worsening PNA * Hgb dropped today * H/H trend: 15.0-->14.1-->13.8-->10.7-->9.5-->10.0-->8.2 * Given multiple fluid boluses over past 24 hours due to hypotension * Recheck H/H this afternoon * Per nursing no bloody BMs * Started on IVP steroids for allergic reaction * On high flow at 35L with FiO2 of 45 - saturations of 92% * ABG today: Left radial, pH 7.46, PCO2 35.1, PO2 59.0, HCO3 24.4, O2 saturation 90.1, base excess 1.1, A-a gradient 218 Labs: * WBC 21.18 * Hemoglobin 8.2 * Platelet 189 * Neutrophils elevated at 19.60 * D-dimer 1.09 * Sodium 138 * Potassium 4.2 * BUN 35 * Creatinine 0.8 * GFR greater than 60 * Calcium 7.9 * Magnesium 2.4 * Albumin 2.1 * Continue current treatment plan * Resume PT/OT when able * Continue Airborne/Droplet isolation * Remains ICU status - will consider downgrading tomorrow * Continue Protonix 08/10/2020 * Weaned off of high flow - currently on 6L O2 * Very weak with no endurance. Saturations drop when standing up and recover slowly * Continue Lam caterer due to patients severe desaturations with movement * Continue IS/Acapella * Recheck H/H this afternoon * Spoke with on-call surgeon, Dr. Armendariz about patient. Denies need for formal consultation. Recommends continuing Protonix BID and monitor labs, stopping offending agent (lovenox) and transfuse as needed. * Nursing notes no BMs for past several days. * Labs: * WBC 22.04 * Hemoglobin 7.5-->8.9 * Platelets 183,000, neutrophils elevated at 89.7% * Sodium 135 * Potassium 3.9 * BUN 27 * Creatinine 0.6 * GFR greater than 60 * Iron panel: Iron 57 TIBC 231, percent saturation 25, transferrin 185 * Ferritin 422 * CRP less than 0.2 * Re-check AM labs * Start Senna daily * Resume PT/OT * SW continues to plan for placement * Downgraded to M/S/P status with telemetry today. 08/11/2020 * Variable oxygen saturations and oxygen demand * Currently on 6L * Continue Lam catheter due to patients severe desaturations with movement * Continue IS/Acapella * Continue PT/OT * Re-check CBC tomorrow am * Will likely need SNF placement on discharge * Labs * WBC 21.28 * RBC 2.49 * Hgb 7.3 * Hct 23.2 * Plt 179 * Neutrophils 19.11 * Sodium 136 * Potassium 3.9 * BUN 25 * Creatinin 0.7 * GFR >60 * CRP 0.3 * H/H trend: 15.0-->14.1-->13.8-->10.7-->9.5-->10.0-->8.2-->8.6-->7.5-->8.9-->7.3 * Continue vancomycin/cefepime * Unknown LOS - Plan Plan:: COVID-19 Infection Viral Pneumonitis/Atypical Pneumonia Hypoxia Elevated d-dimer, CTA negative for PE Transaminitis, resolved Class I Obese * Completed remdesivir, azithromycin, Dexamethasone and Rocephin * Started on levaquin due to increasing need for O2, Leukocytosis, and possible PNA * O2 as needed; titrate when able * Attempt to wean off of O2 * RT/IS/Acapella * Continue zinc and vit d supplement * Airborne and contact isolation * Lovenox discontinued * Encourage ambulation around room * Encourage proning * Monitor daily labs * Check D-dimer Q48H * Telemetry/continuous pulse oximeter * PT consultation * CM/SW * Cefepime/Vancomycin for new respiratory symptoms/pneumonia * Continue lam catheter for now Adverse drug reaction, Resolved * Levaquin added to patients adverse reaction/allergy list * Decrease steroid dosing and wean GI Bleed Hypotension * Stop BID Lovenox * Monitor H/H * Positive occult * Given Protonix drip initially - change to BID IVP Protonix * Continue IVP Protonix * Monitor for bloody BMs. * Transfuse 2 units PRBCs with 20mg lasix between Hyperglycemia without diagnosis of DM or Glucose Intolerance, mild * Likely 2/2 steroid administration * Monitor blood glucose AM/PM * Check A1C 6.30-meets criteria for pre-diabetes * Monitor need for insulin Hypokalemia, resolved Hyponatremia, resolved * Appointment Manager consult * Monitor labs Hypothyroidism Hypertension * Continue home Levothyroxine * Hold home HCTZ * TSH WNL * Monitor vital signs Q8H PCP: Dr. Mars Code status: Full Code DVT prophylaxis: SCDs (Lovenox discontinued due to GI Bleed.) Social: Patient lives with in [place]. is admitted to [facility] unit for COVID-19 as well. She reports neither her nor her drive and they often get rides around town by [employer]ostic[employer] members. Patient accepted for admittance to [facility] once cleared for discharge. Will likely require SNF at discharge. Disposition: Patient admitted for treatment of COVID-19, Hypoxia, and electrolyte abnormalities. LOS >96 hrs to complete treatment for COVID-19, New PNA.
[2020-08-11] MEDS: Cholecalciferol (Vitamin D3) 5,000 UNIT Cap PO SCH (08:12)
[2020-08-11] MEDS: Pantoprazole 40 MG Vial IVPUSH SCH (08:13)
[2020-08-11] MEDS: Zinc Sulfate 220 MG Cap PO SCH (08:13)
[2020-08-11] MEDS: methylPREDNISolone Sodium Succinate 40 MG/1 ML SDV IVPUSH SCH (08:13)
[2020-08-11] MEDS ORDERED: Furosemide 20 MG/2 ML VIAL IVPUSH SCH (09:00)
[2020-08-11] MEDS ORDERED: Sodium Chloride 0.9% 250 ML IV SCH (10:00)
--- NOTE | 2020-08-11 12:54 | PCM.DCSUM1 ---
<Derrick Ohara - Last Filed: 08/11/20 15:14> Discharge Summary - Hospital Course HPI Initial Comments: This is a 80 yo female who presented to ED on the evening of 07/27/2020 with shortness of breath and fatigue. She states she developed body aches on 07/25/2020 and has since had worsening dyspnea and coughing. Denies any fever at home treatment. Her tested positive for Covid and was admitted on 07/23/2020 to our hospital. Patient denies any chest pain, palpitations, nausea, vomiting, constipation, diarrhea, abdominal pain, urinary symptoms, headaches, or rashes. In the ED he is 160/73. She is noted to have tachypnea at 28 bpm with saturations of 81% on room air. She is afebrile. She is placed on 2 L of oxygen via nasal cannula and her saturations improved to 96%. EKG is obtained showing a sinus rhythm at 89 bpm with no ischemic changes. Labs are obtained: BBC is normal at 9.32. Hemoglobin 14.0. Hematocrit 42.3. She is normocytic. Platelets are 242,000. Neutrophils are elevated at 82%. There is 2% band neutrophils noted. D-dimer is quite high at 2.59. Sodium is low at 133. Potassium 3.3. Chloride 97. Carbon dioxide 25. Anion gap 14.3. BUN is 13. Creatinine 0.9. GFR is greater than 60. Glucose is 88. Calcium is 8.7. Total bilirubin 0.7. AST is high at 128. ALT high at 87. Alkaline phosphatase at 60. Troponin is 0.025. Protein is 7.5. Albumin 3.1. Lactic acid is 2.0. Magnesium is 2.0. proBNP is 376. ABG is obtained in the left radial showing a pH of 7.42. PCO2 of 37.6. PO2 of 55. HCO3 is 23.9. O2 saturation is 88.4. Base excess is 0.1. A-a radiant is 48. This is obtained while on room air. Influenza a and B are both negative. She is positive for the SARS-CoV-2 RNA. Blood cultures were obtained and are pending. Chest x-ray is changed showing bilateral hazy infiltrates worse on the right than on the left, but no pleural effusion or pulmonary vascular congestion are noted. There is no pneumothorax. Formal read is still pending. CT angiogram of the chest is obtained and interpreted by [facility] as: 1. Limited pulmonary artery visualization as described. 2. There is no CT evidence of central pulmonary embolism. Peripheral emboli cannot be ruled in or ruled out. 3. Consider pulmonary atrial hypertension. 4. Diffuse pulmonary parenchymal abnormality as described suspect for pneumonia. Consider viral etiologies, bacterial etiologies, and atypical etiologies. Bilateral renal calculi as described. Patient is given 6 mg IV dexamethasone. She carries a history of hypothyroidism, obesity, osteoarthritis, hypertension, and urinary incontinence. She has never used tobacco. She is a full code. Her PCP is Dr. Mars. She subsequently admitted to the medical floor on telemetry for treatment of her COVID-19 virus, hypokalemia, and hypoxia. Diagnosis: Stroke: No - Discharge Data Discharge Date: 08/11/20 (Admit date: 07/26/2020) Discharge Disposition: DC/Tfer to Acute Hospital 02 Condition: Stable - Referral to Home Health Primary Care Physician: Liu Mars MD - Discharge Diagnosis/Problem(s) (1) COVID-19 SNOMED Code(s): 826394391 ICD Code: U07.1 - COVID-19 Status: Acute Priority: High (2) Hypoxia SNOMED Code(s): 560122910 ICD Code: R09.02 - HYPOXEMIA Status: Acute Priority: High (3) Hypokalemia SNOMED Code(s): 91141754 ICD Code: E87.6 - HYPOKALEMIA Status: Acute Priority: High (4) Elevated d-dimer SNOMED Code(s): 476395796 ICD Code: R79.89 - OTHER SPECIFIED ABNORMAL FINDINGS OF BLOOD CHEMISTRY Status: Acute Priority: High (5) Hypothyroidism SNOMED Code(s): 85168278 ICD Code: E03.9 - HYPOTHYROIDISM, UNSPECIFIED Status: Chronic Priority: Low Qualifiers: Hypothyroidism type: unspecified Qualified Code(s): E03.9 - Hypothyroidism, unspecified (6) Hypertension SNOMED Code(s): 61627232 ICD Code: I10 - ESSENTIAL (PRIMARY) HYPERTENSION Status: Chronic Priority: Medium Qualifiers: Hypertension type: unspecified Qualified Code(s): I10 - Essential (primary) hypertension (7) Hyponatremia SNOMED Code(s): 96139222 ICD Code: E87.1 - HYPO-OSMOLALITY AND HYPONATREMIA Status: Acute (8) Transaminitis SNOMED Code(s): 696725265, 297683828 ICD Code: R74.01 - ELEVATION OF LEVELS OF LIVER TRANSAMINASE LEVELS Status: Acute (9) Obesity (BMI 30.0-34.9) SNOMED Code(s): 277927369796982 ICD Code: E66.9 - OBESITY, UNSPECIFIED Status: Chronic Priority: Medium (10) Hyperglycemia SNOMED Code(s): 45672421 ICD Code: R73.9 - HYPERGLYCEMIA, UNSPECIFIED Status: Acute Priority: High (11) GI bleed SNOMED Code(s): 79867163 ICD Code: K92.2 - GASTROINTESTINAL HEMORRHAGE, UNSPECIFIED Status: Acute Priority: High Qualifiers: GI bleed type/associated pathology: unspecified gastrointestinal hemorrhage type Qualified Code(s): K92.2 - Gastrointestinal hemorrhage, unspecified (12) Hypotension SNOMED Code(s): 03409030 ICD Code: I95.9 - HYPOTENSION, UNSPECIFIED Status: Resolved Priority: High Qualifiers: Hypotension type: unspecified hypotension type Qualified Code(s): I95.9 - Hypotension, unspecified (13) Adverse drug reaction SNOMED Code(s): 58011289 ICD Code: T50.905A - ADVERSE EFFECT OF UNSP DRUG/MEDS/BIOL SUBST, INIT Status: Resolved Priority: High Qualifiers: Encounter type: initial encounter Qualified Code(s): T50.905A - Adverse effect of unspecified drugs, medicaments and biological substances, initial encounter - Patient Summary/Data Consults: Consultations 07/28/20 08:21 Consult to Case Management/Technology Sales Representative [CONS] Routine Consult to Access Control Specialist [CONS] Routine 08/09/20 10:34 Consult to Occupational Therapy [OT Evaluation and Treatment] [CONS] Routine PT Evaluation and Treatment [CONS] Routine Labs Pending at D/C: None Hospital Course: Assessment - Day of admission 07/28/2020 (admitted overnight 07/27/2020): * 80 yo female who presents to ED with SOB, Fatigue, cough, and body aches * Denies fever, diarrhea, nausea/vomiting * hospitalized for COVID-19 after testing positive on 07/23/2020 * Oxygen saturations of 81% on room air in ED, 96% on 2L * 12-Lead EGK: NSR at 89 BPM with no signs of ischemia * CXR in ED: Bilateral hazy infiltrates, worse on right than on left * CTA in ED: Limited pulmonary arterial visualization, No evidence of central PE , Consider PAH, Diffuse pulmonary parenchymal abnormality Bilateral renal calculi * Labs: * WBC 9.32 * Hgb 14.0 * Plt 212 * D-dimer 2.59 * Sodium 133 * Potassium 3.3 * GFR >60 * Bilirubin 0.7 * AST 128, ALT 87, Alk phos 60 * Troponin 0.025 * Albumin 3.1 * Lactic acid 2.0 * Magnesium 2.0 * Pro-BNP 376 * ABG: pH 7.42, PCO2 37.6, PO2 55, HCO3 23.9, oxygen saturation 88.4 base excess 0.1, A-a gradient 48, on room air * TSH 0.897 * Influenza A and B - Negative * SARS-CoV-2 - positive * MRSA - negative * Admitted to [facility] for treatment of COVID-19, Hypokalemia, Hyponatremia, Hypoxia. 07/29/2020: * Remains on 2L oxygen (improved) * Continues to utilize acapella/IS * Denies any new complaints * Labs * D-dimer improved to 1.82 * WBC 10.49 (steroid?) * Sodium 138 * Potassium 4.5 * Glucose 160 * A1C 6.3 * AST 60, ALT 73, Alk Phos 51 * CRP 17.0 * Albumin 2.0 * Vitamin D 30.1 * Continue current treatment plan * Repots she feels better * Continued cough but non-productive 07/30/2020: * Continue current treatment * She remains on 2L oxygen * Rocephin 3/5 and Veklury 09/15 day of treatment * Dexamethasone 6 mg po 09/20 * Completed Azithromycin * IS and beside pulmonary exercise * Vitamin D and zinc supplement * May benefit with proning * Encourage to ambulate side her room as many times as she can * PRN decongestant/expectorant * Titrate to come off supplemental O2 * DVT prophylaxis: Lovenox 40 mg subQ BID * Code status: full * LOS > 96 hrs for complete treatment of Veklury 07/31/2020: * Continue current treatment * She remains on 2L oxygen * Rocephin 4/5 and Veklury /4 day of treatment * Dexamethasone 6 mg po 10/18 * Completed Azithromycin * Encourage to use IS/FV and beside pulmonary exercise * Continue Vitamin D and zinc supplement * May benefit with proning * Encourage to ambulate side her room as many times as she can * PRN decongestant/expectorant * Titrate to come off supplemental O2 * DVT prophylaxis: Lovenox 40 mg subQ BID * Code status: full * LOS > 96 hrs for complete treatment of Veklury and hopefully off supplemental O2 08/01/2020 * Continue current treatment * Continues to utilize IS/Acapella * Reports she has been up ambulating but has noticed her endurance is less * Reports she has been trying to prone * On 3-4L o2 - working on weaning * Reports she continues to feel better but has cough * Labs: * WBC 14.87 * Hgb 15.0 * Plt 339,000 * GFR >60 * CRP 4.0 * Albumin 2.7 08/02/2020 * Requiring high flow today - 55L FiO2 of 60 * Continues to utilize IS/Acapella * Coughing frequently * Labs: * WBC 12.45 * Hgb 14.1 * Plt 370 * GFR >60 * D. Dimer 1.29 * CRP 4.2 * Albumin 2.4 * Blood glucose levels have been stable * Continue dexamethasone - day02/18 * [facility] working on placement - patient in agreement to look into [facility] at discharge 08/03/2020 * Improved high flow today - 40L at FiO2 of 40 * Continues to utilize IS and acapella * Continued cough * Continues to be worried we are upset that we are not happy with how long she is proning for - reassured. * Reports frequent belching - likely 2/2 High flow * No labs obtained today * Dexamethasone day 03/21 * [facility] continues to work on placement - likely [facility] at discharge. 08/04/2020 * Worsening High flow today 45L with FiO2 of 50 * Continues to utilize acapella and IS * Continues to prone as tolerated * No labs obtained today * Dexamethasone day 04/21 * Patient and accepted at [facility] after discharge * Added PRN simethicone for gas pains 08/05/2020 The patient is a 80-year-old lady who continues with acute respiratory failure due to COVID-19. She is currently on high flow oxygen and this will be continued to help keep her saturations above 92%. The patient also is awaiting placement. She has completed treatment for COVID-19 and I have removed her isolation. The patient will also be kept on her DVT prophylaxis. She has been encouraged to ambulate. The patient is also been advised to utilize incentives parameter. The patient is actively appropriate for discharge once placement is arranged. Repeat laboratory studies have been ordered for the morning. The patient will continue on her current diet as tolerated. 08/06/2020 The patient is a 80-year-old lady who still has acute respiratory failure due to COVID-19 infection. The patient will remain on high flow oxygen to help keep her saturations between 90 and 92%. She has completed treatment for the Covid already. The patient has been encouraged to ambulate. She also be kept on DVT prophylaxis. The patient is to have an appropriate diet as tolerated. Repeat laboratory studies have been ordered. She has also been encouraged to use incentive spirometer. The patient should be appropriate for discharge once placement has been arranged. The patient will need to have her oxygen weaned before transfer. 08/07/2020 The patient is a 80-year-old lady who is currently awaiting placement. She is still on high flow oxygen. Because of this I have ordered a chest x-ray. The patient will remain on oxygen to keep her saturations between 90 and 92%. The patient should also continue with her current diet. She has been encouraged to ambulate. She is on DVT prophylaxis. Repeat laboratory studies have been ordered. The patient should be appropriate for discharge once her oxygen demands have improved significantly and placement has been arranged and a bed is available. 08/08/2020 * Respiratory status worsening * On High Flow at 60L with 60% FiO2. * Stopped BID Lovenox due to nursing reporting frankly bloody stools * Positive occult stool * Given Protonix drip initially - changed to BID IVP Protonix * Hgb trend: 15.0-->14.1-->13.8-->10.7-->9.5-->10.0 * Patient upgraded to ICU for closer monitoring * Labs: * WBC 19.60 * Hgb 10.0 * Hct 31.7 * Plt 228 * Sodium 139 * Potassium 4.4 * BUN 48 * Creatinin 0.8 * GFR >60 * ABG obtained in the left radial pH 7.47, PCO2 33.3, PO2 85, HCO3 23.7, O2 saturation 97.0, A-a gradient 301. Obtained while on high flow 60 L 60 FiO2. * Monitor need for intubation * Hypotensive with BP of 82/69 * 500mL IV fluid bolus given * Caution with IV fluids given COVID-19 status * Continue Airborne/Droplet isolation 08/09/2020 * Patient had allergic reaction last night due to Levaquin - was switched to cefepime and vancomycin * CXR shows worsening PNA * Hgb dropped today * Hgb trend: 15.0-->14.1-->13.8-->10.7-->9.5-->10.0-->8.2 * Given multiple fluid boluses over past 24 hours due to hypotension * Recheck H/H this afternoon * Per nursing no bloody BMs * Started on IVP steroids for allergic reaction * On high flow at 35L with FiO2 of 45 - saturations of 92% * ABG today: Left radial, pH 7.46, PCO2 35.1, PO2 59.0, HCO3 24.4, O2 saturation 90.1, base excess 1.1, A-a gradient 218 Labs: * WBC 21.18 * Hemoglobin 8.2 * Platelet 189 * Neutrophils elevated at 19.60 * D-dimer 1.09 * Sodium 138 * Potassium 4.2 * BUN 35 * Creatinine 0.8 * GFR greater than 60 * Calcium 7.9 * Magnesium 2.4 * Albumin 2.1 * Continue current treatment plan * Resume PT/OT when able * Continue Airborne/Droplet isolation * Remains ICU status - will consider downgrading tomorrow * Continue Protonix 08/10/2020 * Weaned off of high flow - currently on 6L O2 * Very weak with no endurance. Saturations drop when standing up and recover slowly * Continue Graves caterer due to patients severe desaturations with movement * Continue IS/Acapella * Recheck H/H this afternoon * Spoke with on-call surgeon, Dr. Armendariz about patient. Denies need for formal consultation. Recommends continuing Protonix BID and monitor labs, stopping offending agent (lovenox) and transfuse as needed. * Nursing notes no BMs for past several days. * Labs: * WBC 22.04 * Hemoglobin 7.5-->8.9 * Platelets 183,000, neutrophils elevated at 89.7% * Sodium 135 * Potassium 3.9 * BUN 27 * Creatinine 0.6 * GFR greater than 60 * Iron panel: Iron 57 TIBC 231, percent saturation 25, transferrin 185 * Ferritin 422 * CRP less than 0.2 * Re-check AM labs * Start Senna daily * Resume PT/OT * SW continues to plan for placement * Downgraded to M/S/P status with telemetry today. 08/11/2020 * Variable oxygen saturations and oxygen demand * Currently on 6L * Continue Graves catheter due to patients severe desaturations with movement * Continue IS/Acapella * Continue PT/OT * Will likely need SNF placement on discharge - had been accepted at [facility] prior to decompensation * Labs * WBC 21.28 * RBC 2.49 * Hgb 7.3 * Hct 23.2 * Plt 179 * Neutrophils 19.11 * Sodium 136 * Potassium 3.9 * BUN 25 * Creatinin 0.7 * GFR >60 * CRP 0.3 * Hgb trend: 15.0-->14.1-->13.8-->10.7-->9.5-->10.0-->8.2-->8.6-->7.5- ->8.9-->7.3 * ABG: Right radial, pH 7.40, PCO2 36.1, PO2 of 70.0, HCO3 of 22.1, O2 saturation 93.5, base excess -1.8, A-a gradient 199, obtained while on nasal cannula at 6 L * Given 1 unit of blood prior to transfer with 20mg lasix after * Report called to Dr. Up, hospitalist at [facility] in [place] who graciously accepts patient for transfer. Yessi has had a rather complex stay. I attached the daily updates above for more detailed explanation of her stay. In short, Yessi was admitted to the medical floor overnight on 07/27/2020 with COVID-19. Her had been admitted a few days prior with similar symptoms. She was started on 6 mg dexamethasone, remdesivir, 500 mg azithromycin, and 2 g Rocephin. D-dimer was noted to be 2.59 and she was started on 40 mg twice daily Lovenox for pr ophylaxis. CTA was obtained and showed no evidence of pulmonary embolism. She was requiring 2 L of oxygen initially and doing quite well however on day 5 she was noted to have a sharp increase in her oxygen demand. By day 6 she was on high flow oxygen. He completed 10 days of dexamethasone, 5 days of remdesivir, 3 days of azithromycin, and 5 days of Rocephin. Repeat chest x-ray was obtained and showed worsening pneumonia. Patient was started on Levaquin. On 08/07/2020 patient had syncopal episode well on toilet. Patient was noted to have a large dark and maroon bowel movement. Hemoglobin was noted to decrease. Lovenox was stopped and patient was given IV bolus of Protonix. This was switched to 40 mg IV push Protonix twice daily. She was noted to be hypotensive and IV fluids were given. She was also noticed to have a rash starting on her arm while receiving Levaquin. This was subsequently stopped and she was given Benadryl 25 mg and 60 mg every 8 hour IV push methylprednisolone. This was eventually decreased to 40 mg every 12 hours IV push methylprednisolone. Since that time patient has not had a bowel movement however her hemoglobin has remained variable. Graves catheter was placed due to desaturations, dizziness, and weakness when sitting/standing up. Case was discussed with our general surgeon, Dr. Armendariz, who recommended continuing to monitor hemoglobin and t ransfuse as appropriate. Did not feel the patient was a surgical candidate at this time. White count was noted to increase towards the end of her stay with us. Unsure if this is due to steroids or worsening conditions. Patient had been accepted to [facility] approximately midway through her stay. Her was discharged there as well. Chest CT was ordered on 08/10/2020 and showed diffuse parenchymal change on both sides of the chest, minimally worsened. As noted patient's hemoglobin continued to trend downward. Hgb trend: 15.0-->14.1-->13.8-->10.7-->9.5-->10.0-->8.2-->8.6-->7.5-->8.9-->7.3. Today patient was given 1 unit of PRBCs and 20 mg IV push Lasix given her worsening symptoms and continued weakness. She was requiring 6 L of oxygen. Oxygen saturations were in the low 90s however she would drop into the 70s with any type of activity. Patient was able to stand momentarily at the bedside with physical therapy but was quickly exhausted. Respiratory rate was variable from 20s to 40s. ABG was obtained as above and was stable. Today call was placed to [facility] call and report given to , hospitalist on-call. He graciously accepted the patient for transfer. Patient was transferred via ALS ground ambulance to [facility]. - Discharge Plan *PRESCRIPTION DRUG MONITORING PROGRAM REVIEWED*: Not Applicable *COPY OF PRESCRIPTION DRUG MONITORING REPORT IN PATIENT ANGUS: Not Applicable Home Medications: Home Meds Levothyroxine [Synthroid] 88 mcg PO DAILY 04/24/20 [History] hydroCHLOROthiazide [Hydrochlorothiazide] 12.5 mg PO DAILY 04/24/20 [History] Benzonatate 100 mg PO ASDIRECTED 07/28/20 [History] Fluticasone Propionate [Flonase] 16 gm NS BID 07/28/20 [History] Oxygen Therapy Mode: Nasal Cannula Oxygen Flow Rate (L/min): 6 Maintain SPO2% less than: 94 Maintain SpO2% greater than: 88 Patient Handouts: COVID-19: How to Protect Yourself and Others - CDC, Prevent the Spread of COVID-19 if You Are Sick - CDC, Sepsis, Self Care, Adult Forms: ED Department Discharge Referrals: Liu Mars MD [Primary Care Provider] - - Discharge Summary/Plan Comment DC Time >30 min.: Yes (60 mins ) - General Info Date of Service: 08/11/20 Admission Dx/Problem (Free Text: Admission Diagnosis/Problem Admission Diagnosis/Problem Hypoxemia, COVID-19 infection Functional Status: Reports: Pain Controlled, Tolerating Diet, Urinating (Graves in place ), Incentive Spirometry, Other (Acapella ). Denies: Ambulating (Unable to tollerate - has been standing briefly with therapies ), New Symptoms - Review of Systems General: Reports: Weakness, Fatigue. Denies: Fever, Malaise, Chills HEENT: Reports: No Symptoms. Denies: Headaches, Sore Throat Pulmonary: Reports: No Symptoms, Shortness of Breath, Cough. Denies: Pleuritic Chest Pain, Sputum, Wheezing Cardiovascular: Reports: No Symptoms, Dyspnea on Exertion. Denies: Chest Pain, Palpitations, Edema, Lightheadedness Gastrointestinal: Reports: Constipation. Denies: Abdominal Pain, Diarrhea, Nausea, Vomiting Genitourinary: Reports: No Symptoms. Denies: Pain Musculoskeletal: Reports: No Symptoms Skin: Reports: No Symptoms. Denies: Cyanosis Neurological: Reports: No Symptoms, Dizziness, Difficulty Walking, Weakness. Denies: Confusion, Headache, Numbness, Pre-Existing Deficit, Syncope, Tingling, Trouble Speaking, Gait Disturbance Psychiatric: Reports: No Symptoms - Patient Data Vitals - Most Recent: Last Vital Signs Temp 98.6 F 08/11/20 12:37 Pulse 74 08/11/20 12:37 Resp 32 H 08/11/20 12:37 BP 143/74 H 08/11/20 12:37 Pulse Ox 92 L 08/11/20 08:00 Weight - Most Recent: 89.421 kg I&O - Last 24 hours: Intake & Output 08/10/20 08/11/20 08/11/20 22:59 06:59 14:59 Intake Total 828 255 8600 Output Total 475 825 160 Balance 497 -525 910 Lab Results - Last 24 hrs: Laboratory Results - last 24 hr 08/10/20 08/10/20 08/10/20 Range/Units 13:06 16:05 21:07 WBC (3.98-10.04) K/mm3 RBC (3.98-5.22) M/mm3 Hgb 8.9 L (11.2-15.7) gm/dl Hct 27.8 L (34.1-44.9) % MCV (79.4-94.8) fl MCH (25.6-32.2) pg MCHC (32.2-35.5) g/dl RDW Std Deviation (36.4-46.3) fL Plt Count (182-369) K/mm3 MPV (9.4-12.3) fl Neut % (Auto) (34.0-71.1) % Lymph % (Auto) (19.3-51.7) % Marshall % (Auto) (4.7-12.5) % Eos % (Auto) (0.7-5.8) Baso % (Auto) (0.1-1.2) % Neut # (Auto) (1.56-6.13) K/mm3 Lymph # (Auto) (1.18-3.74) K/mm3 Marshall # (Auto) (0.24-0.36) K/mm3 Eos # (Auto) (0.04-0.36) K/mm3 Baso # (Auto) (0.01-0.08) K/mm3 Manual Slide Review Puncture Site ABG pH (7.35-7.45) ABG pCO2 (35.0-45.0) mmHg ABG pO2 (80.0-100.0) mmHg ABG HCO3 (22.0-26.0) meq/L ABG O2 Saturation (96.0-97.0) % ABG Base Excess (-2-2.0) Wing Test A-a Gradient mmHg O2 Delivery Device Oxygen Flow Rate FiO2 (21.00-100.00) % Sodium (136-145) mEq/L Potassium (3.5-5.1) mEq/L Chloride (98-107) mEq/L Carbon Dioxide (21-32) mEq/L Anion Gap (5-15) BUN (7-18) mg/dL Creatinine (0.55-1.02) mg/dL Est Cr Clr Drug Dosing mL/min Estimated GFR (MDRD) (>60) mL/min BUN/Creatinine Ratio (14-18) Glucose (83-115) mg/dL POC Glucose 217 H (83-110) mg/dL Calcium (8.5-10.1) mg/dL C-Reactive Protein (<1.0) mg/dL Vancomycin Trough 10.4 (10.0-20.0) Blood Type Gel Antibody Screen Crossmatch 08/11/20 08/11/20 08/11/20 Range/Units 05:50 05:50 05:50 WBC 21.28 H (3.98-10.04) K/mm3 RBC 2.49 L (3.98-5.22) M/mm3 Hgb 7.3 L* D (11.2-15.7) gm/dl Hct 23.2 L (34.1-44.9) % MCV 93.2 (79.4-94.8) fl MCH 29.3 (25.6-32.2) pg MCHC 31.5 L (32.2-35.5) g/dl RDW Std Deviation 44.0 (36.4-46.3) fL Plt Count 179 L (182-369) K/mm3 MPV 10.9 (9.4-12.3) fl Neut % (Auto) 89.8 H (34.0-71.1) % Lymph % (Auto) 3.9 L (19.3-51.7) % Marshall % (Auto) 5.1 (4.7-12.5) % Eos % (Auto) 0 L (0.7-5.8) Baso % (Auto) 0.0 L (0.1-1.2) % Neut # (Auto) 19.11 H (1.56-6.13) K/mm3 Lymph # (Auto) 0.82 L (1.18-3.74) K/mm3 Marshall # (Auto) 1.08 H (0.24-0.36) K/mm3 Eos # (Auto) 0.00 L (0.04-0.36) K/mm3 Baso # (Auto) 0.01 (0.01-0.08) K/mm3 Manual Slide Review Abnormal smear Puncture Site ABG pH (7.35-7.45) ABG pCO2 (35.0-45.0) mmHg ABG pO2 (80.0-100.0) mmHg ABG HCO3 (22.0-26.0) meq/L ABG O2 Saturation (96.0-97.0) % ABG Base Excess (-2-2.0) Wing Test A-a Gradient mmHg O2 Delivery Device Oxygen Flow Rate FiO2 (21.00-100.00) % Sodium 136 (136-145) mEq/L Potassium 3.9 (3.5-5.1) mEq/L Chloride 104 (98-107) mEq/L Carbon Dioxide 24 (21-32) mEq/L Anion Gap 11.9 (5-15) BUN 25 H (7-18) mg/dL Creatinine 0.7 (0.55-1.02) mg/dL Est Cr Clr Drug Dosing 56.68 mL/min Estimated GFR (MDRD) > 60 (>60) mL/min BUN/Creatinine Ratio 35.7 H (14-18) Glucose 137 H (83-115) mg/dL POC Glucose (83-110) mg/dL Calcium 7.6 L (8.5-10.1) mg/dL C-Reactive Protein 0.3 (<1.0) mg/dL Vancomycin Trough (10.0-20.0) Blood Type AB POSITIVE Gel Antibody Screen Negative Crossmatch See Detail 08/11/20 Range/Units 11:55 WBC (3.98-10.04) K/mm3 RBC (3.98-5.22) M/mm3 Hgb (11.2-15.7) gm/dl Hct (34.1-44.9) % MCV (79.4-94.8) fl MCH (25.6-32.2) pg MCHC (32.2-35.5) g/dl RDW Std Deviation (36.4-46.3) fL Plt Count (182-369) K/mm3 MPV (9.4-12.3) fl Neut % (Auto) (34.0-71.1) % Lymph % (Auto) (19.3-51.7) % Marshall % (Auto) (4.7-12.5) % Eos % (Auto) (0.7-5.8) Baso % (Auto) (0.1-1.2) % Neut # (Auto) (1.56-6.13) K/mm3 Lymph # (Auto) (1.18-3.74) K/mm3 Marshall # (Auto) (0.24-0.36) K/mm3 Eos # (Auto) (0.04-0.36) K/mm3 Baso # (Auto) (0.01-0.08) K/mm3 Manual Slide Review Puncture Site Lt radial ABG pH 7.40 (7.35-7.45) ABG pCO2 36.1 (35.0-45.0) mmHg ABG pO2 70.0 L (80.0-100.0) mmHg ABG HCO3 22.1 (22.0-26.0) meq/L ABG O2 Saturation 93.5 L (96.0-97.0) % ABG Base Excess -1.8 (-2-2.0) Wing Test Positive A-a Gradient 199 mmHg O2 Delivery Device Nasal cannula Oxygen Flow Rate 6.0 FiO2 44.00 (21.00-100.00) % Sodium (136-145) mEq/L Potassium (3.5-5.1) mEq/L Chloride (98-107) mEq/L Carbon Dioxide (21-32) mEq/L Anion Gap (5-15) BUN (7-18) mg/dL Creatinine (0.55-1.02) mg/dL Est Cr Clr Drug Dosing mL/min Estimated GFR (MDRD) (>60) mL/min BUN/Creatinine Ratio (14-18) Glucose (83-115) mg/dL POC Glucose (83-110) mg/dL Calcium (8.5-10.1) mg/dL C-Reactive Protein (<1.0) mg/dL Vancomycin Trough (10.0-20.0) Blood Type Gel Antibody Screen Crossmatch Med Orders - Current: Current Medications Acetaminophen (Tylenol) 650 mg PO Q4H PRN PRN Reason: Pain (Mild 1-3)/fever Last Admin: 08/10/20 20:10 Dose: 650 mg Documented by: Al Hydroxide/Mg Hydroxide (Mag-Al Plus) 30 ml PO Q8H PRN PRN Reason: Indigestion Last Admin: 08/05/20 18:53 Dose: 30 ml Documented by: Albuterol (Proventil Neb Soln) 2.5 mg NEB Q2H PRN PRN Reason: Shortness Of Breath/wheezing Last Admin: 07/29/20 05:30 Dose: 2.5 mg Documented by: Albuterol/Ipratropium (Duoneb 3.0-0.5 Mg/3 Ml) 3 ml NEB Q4H PRN PRN Reason: Shortness Of Breath/wheezing Benzocaine/Menthol (Cepacol Sore Throat) 1 lozenge MUCMEM Q2H PRN PRN Reason: Sore Throat Last Admin: 08/09/20 19:44 Dose: 1 lozenge Documented by: Benzonatate (Tessalon Perles) 100 mg PO TID PRN PRN Reason: COUGH Last Admin: 08/05/20 20:17 Dose: 100 mg Documented by: Cholecalciferol (Vitamin D3) 5,000 unit PO DAILY NAILA Last Admin: 08/11/20 08:12 Dose: 5,000 unit Documented by: Docusate Sodium (Colace) 100 mg PO BID PRN PRN Reason: Constipation Last Admin: 08/10/20 12:05 Dose: 100 mg Documented by: Furosemide (Lasix) 20 mg IVPUSH ONETIME [facility] Stop: 08/11/20 14:00 Last Admin: 08/11/20 12:41 Dose: 20 mg Documented by: Guaifenesin/Codeine Phosphate (Robitussin Ac) 5 ml PO Q4H PRN PRN Reason: Cough Last Admin: 08/11/20 02:55 Dose: 5 ml Documented by: Guaifenesin/Phenylephrine HCl (Robitussin Dm) 10 ml PO Q4H PRN PRN Reason: Cough Last Admin: 08/05/20 18:54 Dose: 10 ml Documented by: Cefepime HCl 2 gm/ Premix 50 mls @ 100 mls/hr IV Q12H [facility] Last Admin: 08/11/20 03:55 Dose: 100 mls/hr Documented by: Vancomycin HCl 1 gm/ Sodium (Chloride) 250 mls @ 250 mls/hr IV Q8H [facility] Last Admin: 08/11/20 08:14 Dose: 250 mls/hr Documented by: Sodium Chloride (Normal Saline) 250 mls @ 25 mls/hr IV ASDIRECTED [facility] Levothyroxine Sodium (Synthroid) 88 mcg PO ACBREAKFAST [facility] Last Admin: 08/11/20 05:52 Dose: 88 mcg Documented by: Methylprednisolone Sodium Succinate (Solu-Medrol) 40 mg IVPUSH Q12H [facility] Last Admin: 08/11/20 08:13 Dose: 40 mg Documented by: Ondansetron HCl (Zofran) 4 mg IV Q4H PRN PRN Reason: Nausea/Vomiting Pantoprazole Sodium (Protonix Iv) 40 mg IVPUSH Q12H [facility] Last Admin: 08/11/20 08:13 Dose: 40 mg Documented by: Senna/Docusate Sodium (Senna Plus) 1 tab PO BID [facility] Last Admin: 08/11/20 08:13 Dose: 1 tab Documented by: Simethicone (Simethicone) 80 mg PO Q6H PRN PRN Reason: Gas pains Last Admin: 08/07/20 21:08 Dose: 80 mg Documented by: Sodium Chloride (Saline Flush) 10 ml FLUSH ONARRIVE [facility] Last Admin: 07/27/20 21:43 Dose: 10 ml Documented by: Vancomycin HCl (Pharmacy To Dose - Vancomycin) 0 dose .XX ASDIRECTED PRN PRN Reason: RX TO DOSE VANCOMYCIN Zinc Sulfate (Zincate) 220 mg PO DAILY [facility] Last Admin: 08/11/20 08:13 Dose: 220 mg Documented by: Discontinued Medications Aspirin (Halfprin) 81 mg PO DAILY [facility] Last Admin: 08/07/20 08:15 Dose: 81 mg Documented by: Azithromycin (Zithromax) 500 mg PO DAILY NAILA Stop: 07/30/20 09:01 Last Admin: 07/30/20 09:20 Dose: 500 mg Documented by: Benzonatate (Tessalon Perles) 100 mg PO TID PRN PRN Reason: Cough Last Admin: 07/30/20 11:35 Dose: 100 mg Documented by: Dexamethasone (Decadron) 6 mg IVPUSH ONETIME STA Stop: 07/27/20 22:03 Last Admin: 07/27/20 22:14 Dose: 6 mg Documented by: Dexamethasone (Dexamethasone) 6 mg PO BEDTIME NAILA Stop: 08/05/20 21:01 Last Admin: 08/05/20 20:16 Dose: 6 mg Documented by: Diphenhydramine HCl (Benadryl) 25 mg IVPUSH ONETIME ONE Stop: 08/08/20 15:46 Last Admin: 08/08/20 15:42 Dose: 25 mg Documented by: Enoxaparin Sodium (Lovenox) 40 mg SUBCUT DAILY [facility] Last Admin: 07/28/20 08:33 Dose: 40 mg Documented by: Enoxaparin Sodium (Lovenox) 40 mg SUBCUT BID [facility] Last Admin: 08/07/20 21:07 Dose: 40 mg Documented by: Sodium Chloride (Normal Saline) 1,000 mls @ 100 mls/hr IV ASDIRECTED [facility] Stop: 07/29/20 00:03 Last Admin: 07/27/20 20:50 Dose: 100 mls/hr Documented by: Sodium Chloride (Normal Saline) 100 mls @ 60 mls/min IV ASDIRECTED [facility] Last Admin: 07/27/20 21:43 Dose: 60 mls/min Documented by: Remdesivir 200 mg/ Sodium (Chloride) 250 mls @ 250 mls/hr IV ONETIME ONE Stop: 07/27/20 22:45 Last Admin: 07/28/20 00:00 Dose: 250 mls/hr Documented by: Remdesivir 100 mg/ Sodium (Chloride) 100 mls @ 100 mls/hr IV Q24H [facility] Stop: 07/31/20 22:59 Last Admin: 07/31/20 21:50 Dose: 100 mls/hr Documented by: Ceftriaxone Sodium 2 gm/ (Sodium Chloride) 100 mls @ 200 mls/hr IV Q24H [facility] Stop: 08/01/20 09:59 Last Admin: 08/01/20 08:57 Dose: 200 mls/hr Documented by: Levofloxacin/Dextrose 500 mg/ (Premix) 100 mls @ 100 mls/hr IV Q24H [facility] Last Admin: 08/08/20 15:18 Dose: 100 mls/hr Documented by: Sodium Chloride (Normal Saline) 500 mls @ 500 mls/hr IV ONETIME ONE Stop: 08/07/20 23:09 Last Admin: 08/07/20 22:15 Dose: 500 mls/hr Documented by: Sodium Chloride (Normal Saline) Confirm Administered Dose 500 mls @ as directed .ROUTE .STK-MED ONE Stop: 08/07/20 22:14 Last Admin: 08/07/20 22:24 Dose: Not Given Documented by: Sodium Chloride (Normal Saline) 500 mls @ 999 mls/hr IV .BOLUS ONE Stop: 08/08/20 12:19 Last Admin: 08/08/20 12:58 Dose: Not Given Documented by: Vancomycin HCl 1 gm/Vancomycin HCl 500 mg/ Sodium Chloride 500 mls @ 250 mls/hr IV ONETIME ONE Stop: 08/08/20 18:59 Last Admin: 08/08/20 16:51 Dose: 250 mls/hr Documented by: Vancomycin HCl 1 gm/ Sodium (Chloride) 250 mls @ 250 mls/hr IV Q12H [facility] Last Admin: 08/10/20 04:23 Dose: 250 mls/hr Documented by: Sodium Chloride (Normal Saline (Advbag)) Confirm Administered Dose 250 mls @ as directed .ROUTE .STK-MED ONE Stop: 08/10/20 17:23 Last Admin: 08/10/20 17:32 Dose: 250 mls/hr Documented by: Iopamidol (Isovue-370 (76%)) 100 ml IVPUSH ONETIME ONE Stop: 07/27/20 20:54 Last Admin: 07/27/20 21:43 Dose: 100 ml Documented by: Levothyroxine Sodium (Synthroid) 88 mcg PO DAILY [facility] Last Admin: 08/10/20 09:08 Dose: 88 mcg Documented by: Methylprednisolone Sodium Succinate (Solu-Medrol) 60 mg IVPUSH Q8H [facility] Last Admin: 08/10/20 15:29 Dose: 60 mg Documented by: Methylprednisolone Sodium Succinate (Solu-Medrol) 40 mg IVPUSH Q12H [facility] Last Admin: 08/10/20 16:08 Dose: Not Given Documented by: Non-Formulary Medication (Nf Drug) 1 each PO DAILY [facility] Last Admin: 07/30/20 14:02 Dose: Not Given Documented by: Pantoprazole Sodium (Protonix Iv) 80 mg IVPUSH BOLUS STA Stop: 08/07/20 22:06 Last Admin: 08/07/20 22:19 Dose: 80 mg Documented by: Potassium Chloride (Klor-Con M20) 40 meq PO ONETIME ONE Stop: 07/27/20 22:47 Last Admin: 07/28/20 00:18 Dose: 40 meq Documented by: - Exam Quality Assessment: Reports: Supplemental Oxygen (6L ), Urine Catheter, DVT Prophylaxis General: Reports: Alert, Oriented, Cooperative, Mild Distress HEENT: Reports: Pupils Equal, Pupils Reactive, Mucous Membr. Moist/[place] Neck: Reports: Supple, Trachea Midline Lungs: Reports: Normal Respiratory Effort, Decreased Breath Sounds, Crackles. Denies: Wheezing Cardiovascular: Reports: Regular Rate, Regular Rhythm GI/Abdominal Exam: Normal Bowel Sounds, Soft, Non-Tender, No Distention (Female) Exam: Deferred Rectal (Female) Exam: Deferred Extremities: Normal Inspection, Normal Range of Motion, Non-Tender, No Pedal Edema, Normal Capillary Refill Skin: Reports: Warm, Dry, Intact Neurological: Reports: No New Focal Deficit Psy/Mental Status: Reports: Alert <Maxine,Elvis Ceballos - Last Filed: 08/11/20 17:14> Discharge Summary - Referral to Home Health Primary Care Physician: Liu aMrs MD - Discharge Diagnosis/Problem(s) (1) Acute respiratory failure due to COVID-19 SNOMED Code(s): 998784513 ICD Code: U07.1 - COVID-19; J96.00 - ACUTE RESPIRATORY FAILURE, UNSP W HYPOXIA OR HYPERCAPNIA Status: Acute Priority: High (2) Hypertension SNOMED Code(s): 69869263 ICD Code: I10 - ESSENTIAL (PRIMARY) HYPERTENSION Status: Chronic Priority: Medium Qualifiers: Hypertension type: unspecified Qualified Code(s): I10 - Essential (primary) hypertension - Patient Summary/Data Consults: Consultations 07/28/20 08:21 Consult to Case Management/Technology Sales Representative [CONS] Routine Consult to Access Control Specialist [CONS] Routine 08/09/20 10:34 Consult to Occupational Therapy [OT Evaluation and Treatment] [CONS] Routine PT Evaluation and Treatment [CONS] Routine Hospital Course: I have seen and evaluated the patient independent of Derrick Ohara PA-C. I have reviewed and agree with the plan of care as outlined for this patient by him. I have discussed the case with Derrick. The patient was appropriate for transfer to higher level of care as she had not made any significant improvements. Please see orders. - Patient Data Vitals - Most Recent: Last Vital Signs Temp 37.0 C 08/11/20 12:37 Pulse 74 08/11/20 12:37 Resp 32 H 08/11/20 12:37 BP 143/74 H 08/11/20 12:37 Pulse Ox 89 L 08/11/20 12:00 I&O - Last 24 hours: Intake & Output 08/11/20 08/11/20 08/11/20 06:59 14:59 22:59 Intake Total 300 1070 Output Total 825 530 Balance -525 540 Lab Results - Last 24 hrs: Laboratory Results - last 24 hr 08/10/20 08/11/20 08/11/20 Range/Units 21:07 05:50 05:50 WBC 21.28 H (3.98-10.04) K/mm3 RBC 2.49 L (3.98-5.22) M/mm3 Hgb 7.3 L* D (11.2-15.7) gm/dl Hct 23.2 L (34.1-44.9) % MCV 93.2 (79.4-94.8) fl MCH 29.3 (25.6-32.2) pg MCHC 31.5 L (32.2-35.5) g/dl RDW Std Deviation 44.0 (36.4-46.3) fL Plt Count 179 L (182-369) K/mm3 MPV 10.9 (9.4-12.3) fl Neut % (Auto) 89.8 H (34.0-71.1) % Lymph % (Auto) 3.9 L (19.3-51.7) % Marshall % (Auto) 5.1 (4.7-12.5) % Eos % (Auto) 0 L (0.7-5.8) Baso % (Auto) 0.0 L (0.1-1.2) % Neut # (Auto) 19.11 H (1.56-6.13) K/mm3 Lymph # (Auto) 0.82 L (1.18-3.74) K/mm3 Marshall # (Auto) 1.08 H (0.24-0.36) K/mm3 Eos # (Auto) 0.00 L (0.04-0.36) K/mm3 Baso # (Auto) 0.01 (0.01-0.08) K/mm3 Manual Slide Review Abnormal smear Puncture Site ABG pH (7.35-7.45) ABG pCO2 (35.0-45.0) mmHg ABG pO2 (80.0-100.0) mmHg ABG HCO3 (22.0-26.0) meq/L ABG O2 Saturation (96.0-97.0) % ABG Base Excess (-2-2.0) Wing Test A-a Gradient mmHg O2 Delivery Device Oxygen Flow Rate FiO2 (21.00-100.00) % Sodium 136 (136-145) mEq/L Potassium 3.9 (3.5-5.1) mEq/L Chloride 104 (98-107) mEq/L Carbon Dioxide 24 (21-32) mEq/L Anion Gap 11.9 (5-15) BUN 25 H (7-18) mg/dL Creatinine 0.7 (0.55-1.02) mg/dL Est Cr Clr Drug Dosing 56.68 mL/min Estimated GFR (MDRD) > 60 (>60) mL/min BUN/Creatinine Ratio 35.7 H (14-18) Glucose 137 H (83-115) mg/dL POC Glucose 217 H (83-110) mg/dL Calcium 7.6 L (8.5-10.1) mg/dL C-Reactive Protein 0.3 (<1.0) mg/dL Blood Type Gel Antibody Screen Crossmatch 08/11/20 08/11/20 Range/Units 05:50 11:55 WBC (3.98-10.04) K/mm3 RBC (3.98-5.22) M/mm3 Hgb (11.2-15.7) gm/dl Hct (34.1-44.9) % MCV (79.4-94.8) fl MCH (25.6-32.2) pg MCHC (32.2-35.5) g/dl RDW Std Deviation (36.4-46.3) fL Plt Count (182-369) K/mm3 MPV (9.4-12.3) fl Neut % (Auto) (34.0-71.1) % Lymph % (Auto) (19.3-51.7) % Marshall % (Auto) (4.7-12.5) % Eos % (Auto) (0.7-5.8) Baso % (Auto) (0.1-1.2) % Neut # (Auto) (1.56-6.13) K/mm3 Lymph # (Auto) (1.18-3.74) K/mm3 Marshall # (Auto) (0.24-0.36) K/mm3 Eos # (Auto) (0.04-0.36) K/mm3 Baso # (Auto) (0.01-0.08) K/mm3 Manual Slide Review Puncture Site Lt radial ABG pH 7.40 (7.35-7.45) ABG pCO2 36.1 (35.0-45.0) mmHg ABG pO2 70.0 L (80.0-100.0) mmHg ABG HCO3 22.1 (22.0-26.0) meq/L ABG O2 Saturation 93.5 L (96.0-97.0) % ABG Base Excess -1.8 (-2-2.0) Wing Test Positive A-a Gradient 199 mmHg O2 Delivery Device Nasal cannula Oxygen Flow Rate 6.0 FiO2 44.00 (21.00-100.00) % Sodium (136-145) mEq/L Potassium (3.5-5.1) mEq/L Chloride (98-107) mEq/L Carbon Dioxide (21-32) mEq/L Anion Gap (5-15) BUN (7-18) mg/dL Creatinine (0.55-1.02) mg/dL Est Cr Clr Drug Dosing mL/min Estimated GFR (MDRD) (>60) mL/min BUN/Creatinine Ratio (14-18) Glucose (83-115) mg/dL POC Glucose (83-110) mg/dL Calcium (8.5-10.1) mg/dL C-Reactive Protein (<1.0) mg/dL Blood Type AB POSITIVE Gel Antibody Screen Negative Crossmatch See Detail Med Orders - Current: Current Medications Discontinued Medications Acetaminophen (Tylenol) 650 mg PO Q4H PRN PRN Reason: Pain (Mild 1-3)/fever Last Admin: 08/10/20 20:10 Dose: 650 mg Documented by: Al Hydroxide/Mg Hydroxide (Mag-Al Plus) 30 ml PO Q8H PRN PRN Reason: Indigestion Last Admin: 08/05/20 18:53 Dose: 30 ml Documented by: Albuterol (Proventil Neb Soln) 2.5 mg NEB Q2H PRN PRN Reason: Shortness Of Breath/wheezing Last Admin: 07/29/20 05:30 Dose: 2.5 mg Documented by: Albuterol/Ipratropium (Duoneb 3.0-0.5 Mg/3 Ml) 3 ml NEB Q4H PRN PRN Reason: Shortness Of Breath/wheezing Aspirin (Halfprin) 81 mg PO DAILY NAILA Last Admin: 08/07/20 08:15 Dose: 81 mg Documented by: Azithromycin (Zithromax) 500 mg PO DAILY [facility] Stop: 07/30/20 09:01 Last Admin: 07/30/20 09:20 Dose: 500 mg Documented by: Benzocaine/Menthol (Cepacol Sore Throat) 1 lozenge MUCMEM Q2H PRN PRN Reason: Sore Throat Last Admin: 08/09/20 19:44 Dose: 1 lozenge Documented by: Benzonatate (Tessalon Perles) 100 mg PO TID PRN PRN Reason: Cough Last Admin: 07/30/20 11:35 Dose: 100 mg Documented by: Benzonatate (Tessalon Perles) 100 mg PO TID PRN PRN Reason: COUGH Last Admin: 08/05/20 20:17 Dose: 100 mg Documented by: Cholecalciferol (Vitamin D3) 5,000 unit PO DAILY NAILA Last Admin: 08/11/20 08:12 Dose: 5,000 unit Documented by: Dexamethasone (Decadron) 6 mg IVPUSH ONETIME STA Stop: 07/27/20 22:03 Last Admin: 07/27/20 22:14 Dose: 6 mg Documented by: Dexamethasone (Dexamethasone) 6 mg PO BEDTIME [facility]ILA Stop: 08/05/20 21:01 Last Admin: 08/05/20 20:16 Dose: 6 mg Documented by: Diphenhydramine HCl (Benadryl) 25 mg IVPUSH ONETIME ONE Stop: 08/08/20 15:46 Last Admin: 08/08/20 15:42 Dose: 25 mg Documented by: Docusate Sodium (Colace) 100 mg PO BID PRN PRN Reason: Constipation Last Admin: 08/10/20 12:05 Dose: 100 mg Documented by: Enoxaparin Sodium (Lovenox) 40 mg SUBCUT DAILY [facility] Last Admin: 07/28/20 08:33 Dose: 40 mg Documented by: Enoxaparin Sodium (Lovenox) 40 mg SUBCUT BID [facility] Last Admin: 08/07/20 21:07 Dose: 40 mg Documented by: Furosemide (Lasix) 20 mg IVPUSH ONETIME [facility] Stop: 08/11/20 14:00 Last Admin: 08/11/20 12:41 Dose: 20 mg Documented by: Guaifenesin/Codeine Phosphate (Robitussin Ac) 5 ml PO Q4H PRN PRN Reason: Cough Last Admin: 08/11/20 02:55 Dose: 5 ml Documented by: Guaifenesin/Phenylephrine HCl (Robitussin Dm) 10 ml PO Q4H PRN PRN Reason: Cough Last Admin: 08/05/20 18:54 Dose: 10 ml Documented by: Sodium Chloride (Normal Saline) 1,000 mls @ 100 mls/hr IV ASDIRECTED [facility] Stop: 07/29/20 00:03 Last Admin: 07/27/20 20:50 Dose: 100 mls/hr Documented by: Sodium Chloride (Normal Saline) 100 mls @ 60 mls/min IV ASDIRECTED [facility] Last Admin: 07/27/20 21:43 Dose: 60 mls/min Documented by: Remdesivir 200 mg/ Sodium (Chloride) 250 mls @ 250 mls/hr IV ONETIME ONE Stop: 07/27/20 22:45 Last Admin: 07/28/20 00:00 Dose: 250 mls/hr Documented by: Remdesivir 100 mg/ Sodium (Chloride) 100 mls @ 100 mls/hr IV Q24H [facility] Stop: 07/31/20 22:59 Last Admin: 07/31/20 21:50 Dose: 100 mls/hr Documented by: Ceftriaxone Sodium 2 gm/ (Sodium Chloride) 100 mls @ 200 mls/hr IV Q24H [facility] Stop: 08/01/20 09:59 Last Admin: 08/01/20 08:57 Dose: 200 mls/hr Documented by: Levofloxacin/Dextrose 500 mg/ (Premix) 100 mls @ 100 mls/hr IV Q24H [facility] Last Admin: 08/08/20 15:18 Dose: 100 mls/hr Documented by: Sodium Chloride (Normal Saline) 500 mls @ 500 mls/hr IV ONETIME ONE Stop: 08/07/20 23:09 Last Admin: 08/07/20 22:15 Dose: 500 mls/hr Documented by: Sodium Chloride (Normal Saline) Confirm Administered Dose 500 mls @ as directed .ROUTE .STK-MED ONE Stop: 08/07/20 22:14 Last Admin: 08/07/20 22:24 Dose: Not Given Documented by: Sodium Chloride (Normal Saline) 500 mls @ 999 mls/hr IV .BOLUS ONE Stop: 08/08/20 12:19 Last Admin: 08/08/20 12:58 Dose: Not Given Documented by: Cefepime HCl 2 gm/ Premix 50 mls @ 100 mls/hr IV Q12H [facility] Last Admin: 08/11/20 03:55 Dose: 100 mls/hr Documented by: Vancomycin HCl 1 gm/Vancomycin HCl 500 mg/ Sodium Chloride 500 mls @ 250 mls/hr IV ONETIME ONE Stop: 08/08/20 18:59 Last Admin: 08/08/20 16:51 Dose: 250 mls/hr Documented by: Vancomycin HCl 1 gm/ Sodium (Chloride) 250 mls @ 250 mls/hr IV Q12H [facility] Last Admin: 08/10/20 04:23 Dose: 250 mls/hr Documented by: Vancomycin HCl 1 gm/ Sodium (Chloride) 250 mls @ 250 mls/hr IV Q8H [facility] Last Admin: 08/11/20 08:14 Dose: 250 mls/hr Documented by: Sodium Chloride (Normal Saline (Advbag)) Confirm Administered Dose 250 mls @ as directed .ROUTE .STK-MED ONE Stop: 08/10/20 17:23 Last Admin: 08/10/20 17:32 Dose: 250 mls/hr Documented by: Sodium Chloride (Normal Saline) 250 mls @ 25 mls/hr IV ASDIRECTED [facility] Last Admin: 08/11/20 13:36 Dose: 25 mls/hr Documented by: Iopamidol (Isovue-370 (76%)) 100 ml IVPUSH ONETIME ONE Stop: 07/27/20 20:54 Last Admin: 07/27/20 21:43 Dose: 100 ml Documented by: Levothyroxine Sodium (Synthroid) 88 mcg PO DAILY [facility] Last Admin: 08/10/20 09:08 Dose: 88 mcg Documented by: Levothyroxine Sodium (Synthroid) 88 mcg PO ACBREAKFAST [facility] Last Admin: 08/11/20 05:52 Dose: 88 mcg Documented by: Methylprednisolone Sodium Succinate (Solu-Medrol) 60 mg IVPUSH Q8H [facility] Last Admin: 08/10/20 15:29 Dose: 60 mg Documented by: Methylprednisolone Sodium Succinate (Solu-Medrol) 40 mg IVPUSH Q12H [facility] Last Admin: 08/10/20 16:08 Dose: Not Given Documented by: Methylprednisolone Sodium Succinate (Solu-Medrol) 40 mg IVPUSH Q12H [facility] Last Admin: 08/11/20 08:13 Dose: 40 mg Documented by: Non-Formulary Medication (Nf Drug) 1 each PO DAILY [facility] Last Admin: 07/30/20 14:02 Dose: Not Given Documented by: Ondansetron HCl (Zofran) 4 mg IV Q4H PRN PRN Reason: Nausea/Vomiting Pantoprazole Sodium (Protonix Iv) 80 mg IVPUSH BOLUS STA Stop: 08/07/20 22:06 Last Admin: 08/07/20 22:19 Dose: 80 mg Documented by: Pantoprazole Sodium (Protonix Iv) 40 mg IVPUSH Q12H [facility] Last Admin: 08/11/20 08:13 Dose: 40 mg Documented by: Potassium Chloride (Klor-Con M20) 40 meq PO ONETIME ONE Stop: 07/27/20 22:47 Last Admin: 07/28/20 00:18 Dose: 40 meq Documented by: Senna/Docusate Sodium (Senna Plus) 1 tab PO BID [facility] Last Admin: 08/11/20 08:13 Dose: 1 tab Documented by: Simethicone (Simethicone) 80 mg PO Q6H PRN PRN Reason: Gas pains Last Admin: 08/07/20 21:08 Dose: 80 mg Documented by: Sodium Chloride (Saline Flush) 10 ml FLUSH ONARRIVE [facility] Last Admin: 07/27/20 21:43 Dose: 10 ml Documented by: Vancomycin HCl (Pharmacy To Dose - Vancomycin) 0 dose .XX ASDIRECTED PRN PRN Reason: RX TO DOSE VANCOMYCIN Zinc Sulfate (Zincate) 220 mg PO DAILY [facility] Last Admin: 08/11/20 08:13 Dose: 220 mg Documented by:
== END 2020-08-11 13:45 | DRG 177 ==
LOC: JD.ED 19:17 → JD.MS 22:41 → JD.ICU 08-08 09:14
PROVIDERS: ADMIT Internal Medicine; ATTEND Internal Medicine
PROC: 8E0ZXY6 Isolation (ICD-10-PCS; 2020-07-27)
PROC: XW033E5 Introduction of Remdesivir Anti-infective into Peripheral Vein, Percutaneous Approach, New Technology Group 5 (ICD-10-PCS; 2020-07-27)
PROC: 5A0955A Assistance with Respiratory Ventilation, Greater than 96 Consecutive Hours, High Flow/Velocity Cannula (ICD-10-PCS; principal; 2020-08-02)
PROC: 30233N1 Transfusion of Nonautologous Red Blood Cells into Peripheral Vein, Percutaneous Approach (ICD-10-PCS; 2020-08-11)
DX: U07.1 COVID-19 (principal); J96.01 Acute respiratory failure with hypoxia; N39.3 Stress incontinence (female) (male); J12.89 Other viral pneumonia; E87.1 Hypo-osmolality and hyponatremia; K92.2 Gastrointestinal hemorrhage, unspecified; E87.6 Hypokalemia; Z88.8 Allergy status to other drugs, medicaments and biological substances; R79.89 Other specified abnormal findings of blood chemistry; E03.9 Hypothyroidism, unspecified; I10 Essential (primary) hypertension; R74.01 Elevation of levels of liver transaminase levels; I95.9 Hypotension, unspecified; E66.9 Obesity, unspecified; R73.9 Hyperglycemia, unspecified; T36.8X5A Adverse effect of other systemic antibiotics, initial encounter; T38.0X5A Adverse effect of glucocorticoids and synthetic analogues, initial encounter; N20.0 Calculus of kidney; M19.90 Unspecified osteoarthritis, unspecified site; Z91.09 Other allergy status, other than to drugs and biological substances; Z88.0 Allergy status to penicillin; Z91.041 Radiographic dye allergy status; Z79.890 Hormone replacement therapy; Z79.899 Other long term (current) drug therapy; Z90.49 Acquired absence of other specified parts of digestive tract; Z68.33 Body mass index [BMI] 33.0-33.9, adult
CPT/HCPCS: 0240U; 36415; 36430; 36600; 51702; 71045; 71046; 71250; 71275; 80048; 80053; 80202; 82272; 82306; 82728; 82803; 82962; 83036; 83540; 83605; 83735; 83880; 84100; 84145; 84443; 84466; 84484; 85007; 85014; 85018; 85025; 85027; 85379; 85610; 85730; 86140; 86850; 86900; 86901; 86922; 87040; 87641; 93005; 94640; 94668; 94761; 94762; 96361; 96374; 97110; 97116; 97162; 97165; 97530; 99285; 93010; 99284; A9270-GY; C9113; J0692; J0696; J1100; J1200; J1650; J1940; J1956; J2920; J3370; J7030; J7040; J7050; J8540; P9016; Q9967

== ENCOUNTER 2020-09-02 19:25 | Inpatient (IN) | payer MEDICARE, MEDICAID ==
--- NOTE | 2020-09-02 20:02 | EDM.PDOC ---
ED HPI GENERAL MEDICAL PROBLEM - General Chief Complaint: Cardiovascular Problem Stated Complaint: [facility] Time Seen by Provider: 09/02/20 19:29 Source of Information: Reports: Patient, EMS History Limitations: Reports: No Limitations - History of Present Illness INITIAL COMMENTS - FREE TEXT/NARRATIVE: This is a 80-year-old female. She resides in the [facility] in [place]. Apparently today she got an ultrasound here at the hospital that showed a DVT within the distal superficial femoral and popliteal veins on the left side. Her physician was going to treat her with some Eliquis 10 mg twice a day for 7 days but then learned that she had a GI bleed back in August 08, 2020 when she was in the midst of having a Covid infection. He therefore sent her to the ER to be either admitted on heparin or to be sent down to [place] to get a filter. Reviewing the old chart she does appear to have a history of a GI bleed but it was all bloody stools. Apparently when she was at [facility] the Hb ~ 7 and was not scoped and had a transfusion. Patient denies any recent abdominal discomfort. She says occasionally when she has a stool there might be some bright red blood but no bloody stool. She denies any other acute symptoms. She is still on oxygen and still short of breath from her illness with Covid. She denies any recent increasing shortness of breath or chest pain or increasing coughing. - Related Data Allergies Allergy/AdvReac Type Severity Reaction Status Date / Time levofloxacin [From Levaquin] Allergy Intermediate Rash Verified 09/02/20 19:34 adhesive Allergy Rash Verified 09/02/20 19:34 Iodine and Iodide Containing Allergy Itching Verified 09/02/20 19:34 Produc Penicillins Allergy Diarrhea Verified 09/02/20 19:34 Home Meds: Home Meds Levothyroxine [Synthroid] 88 mcg PO DAILY 04/24/20 [History] Acetaminophen [Non-Aspirin Extra Strength] 500 mg PO BEDTIME PRN 09/02/20 [History] Benzonatate [Tessalon Perle] 100 mg PO QID PRN 09/02/20 [History] Betamethasone Valerate [Valisone 0.1% Crm] 0 gm TOP DAILY PRN 09/02/20 [History] Docusate Sodium 100 mg PO BID 09/02/20 [History] Ketotifen [Ketotifen 0.025% Ophth Soln] 1 drop EYEBOTH BID PRN 09/02/20 [History] Multivitamin [Daily Multiple Vitamin] 1 each PO DAILY 09/02/20 [History] Pantoprazole Sodium 40 mg PO BID 09/02/20 [History] Sertraline [Zoloft] 25 mg PO DAILY 09/02/20 [History] Triamcinolone Acetonide [Triamcinolone 0.1% Dental Paste] 5 gm BUCCAL BID PRN 09/02/20 [History] Past Medical History Cardiovascular History: Reports: Hypertension Genitourinary History: Reports: 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: Musculoskeletal History: Reports: Osteoarthritis Other Musculoskeletal History: knee pain, rotator cuff but not surgery Endocrine/Metabolic History: Reports: Hypothyroidism, Obesity/BMI 30+ Other Endocrine/Metabolic History: thyroid issues - Infectious Disease History Infectious Disease History: Reports: None - Past Surgical History HEENT Surgical History: Reports: Cataract Surgery, Tonsillectomy GI Surgical History: Reports: Appendectomy, Cholecystectomy, Hernia, Abdominal Social & Family History - Caffeine Use Caffeine Use: Reports: Tea - Living Situation & Occupation Living situation: Reports: , with Spouse Occupation: Retired ED ROS GENERAL - Review of Systems Review Of Systems: See Below Constitutional: Reports: Malaise, Weakness. Denies: Fever, Chills HEENT: Reports: No Symptoms Respiratory: Reports: Shortness of Breath. Denies: Cough Cardiovascular: Denies: Chest Pain Endocrine: Reports: Fatigue GI/Abdominal: Denies: Abdominal Pain, Nausea, Vomiting : Reports: No Symptoms Musculoskeletal: Reports: Other (Generalized weakness noted but she is able to move both arms and legs.) Skin: Reports: Pallor Neurological: Denies: Confusion, Headache Psychiatric: Reports: No Symptoms ED EXAM, GENERAL - Physical Exam Exam: See Below Exam Limited By: No Limitations General Appearance: Alert, WD/WN, Other (Mildly short of breath) Eye Exam: Bilateral Eye: Normal Inspection Ears: Normal External Exam Nose: Normal Inspection Throat/Mouth: Normal Inspection, Normal Lips, Normal Voice, No Airway Compromise, Other (Patient is pale) Head: Normocephalic Neck: Supple Respiratory/Chest: Other (She has wheeze breath sounds in all alexander, she appears kind of tight may be occasional expiratory wheezes noted in both lung alexander.) Cardiovascular: Regular Rate, Rhythm, No Murmur GI/Abdominal: Soft Back Exam: Decreased Range of Motion Extremities: Other (Lower extremity is more swollen than the right lower extremity though there is not a lot of erythema noted or warmth differential.) Neurological: Alert, Oriented Psychiatric: Normal Affect, Normal Mood Skin Exam: Warm, Dry, Pallor Course - Vital Signs Last Recorded V/S: Last Vital Signs Temp 98.6 F 09/02/20 19:30 Pulse 94 09/02/20 19:30 Resp 18 09/02/20 19:30 BP 122/55 L 09/02/20 19:30 Pulse Ox 91 L 09/02/20 19:30 - Orders/Labs/Meds Orders: Active Orders 24 hr Category Date Time Status Patient Status [ADT] Routine ADT 09/02/20 21:39 Active CXR [Chest 1V Frontal] [CR] Stat Exams 09/02/20 21:13 Taken Heparin Sodium/D5W [Heparin 25,000 Units in D5W 500 ML] Med 09/02/20 21:15 Active 25,000 units in 500 ml IV TITRATE Medication Orders Heparin Sodium/Dextrose (Heparin 25,000 Units In D5w 500 Ml) 25,000 units in 500 mls @ 26 mls/hr IV TITRATE NAILA; Protocol Last Admin: 09/02/20 21:24 Dose: 1,300 units/hr, 26 mls/hr Documented by: JOHN Cosigned by: KRISTINA Labs: Laboratory Tests 09/02/20 09/02/20 09/02/20 Range/Units 20:05 20:05 20:05 WBC 5.54 (3.98-10.04) K/mm3 RBC 3.36 L (3.98-5.22) M/mm3 Hgb 9.8 L D (11.2-15.7) gm/dl Hct 32.1 L (34.1-44.9) % MCV 95.5 H (79.4-94.8) fl MCH 29.2 (25.6-32.2) pg MCHC 30.5 L (32.2-35.5) g/dl RDW Std Deviation 56.9 H (36.4-46.3) fL Plt Count 242 (182-369) K/mm3 MPV 9.0 L (9.4-12.3) fl Neut % (Auto) 66.1 (34.0-71.1) % Lymph % (Auto) 17.1 L (19.3-51.7) % [place] % (Auto) 13.7 H (4.7-12.5) % Eos % (Auto) 1.3 (0.7-5.8) Baso % (Auto) 0.5 (0.1-1.2) % Neut # (Auto) 3.66 (1.56-6.13) K/mm3 Lymph # (Auto) 0.95 L (1.18-3.74) K/mm3 [place] # (Auto) 0.76 H (0.24-0.36) K/mm3 Eos # (Auto) 0.07 (0.04-0.36) K/mm3 Baso # (Auto) 0.03 (0.01-0.08) K/mm3 PT 10.9 (9.7-12.0) SECONDS INR 1.02 Sodium 141 (136-145) mEq/L Potassium 4.0 (3.5-5.1) mEq/L Chloride 104 (98-107) mEq/L Carbon Dioxide 29 (21-32) mEq/L Anion Gap 12.0 (5-15) BUN 10 (7-18) mg/dL Creatinine 0.6 (0.55-1.02) mg/dL Est Cr Clr Drug Dosing 65.65 mL/min Estimated GFR (MDRD) > 60 (>60) mL/min BUN/Creatinine Ratio 16.7 (14-18) Glucose 110 (83-115) mg/dL Calcium 8.3 L (8.5-10.1) mg/dL Total Bilirubin 0.2 (0.2-1.0) mg/dL AST 28 (15-37) U/L ALT 48 (14-59) U/L Alkaline Phosphatase 75 (46-116) U/L Total Protein 5.3 L (6.4-8.2) g/dl Albumin 2.0 L (3.4-5.0) g/dl Globulin 3.3 gm/dL Albumin/Globulin Ratio 0.6 L (1-2) Meds: Medications Generic Name Dose Route Start Last Admin Trade Name Freq PRN Reason Stop Dose Admin Heparin Sodium/Dextrose 25,000 units in 500 mls @ 26 mls/hr 09/02/20 21:15 09/02/20 21:24 Heparin 25,000 Units In D5w 500 Ml IV 1,300 units/hr TITRATE NAILA 26 mls/hr Administration Protocol 1,300 UNITS/HR Discontinued Medications Generic Name Dose Route Start Last Admin Trade Name [place] PRN Reason Stop Dose Admin Heparin Sodium (Porcine) 5,000 units 09/02/20 21:06 09/02/20 21:24 Heparin Sodium IVPUSH 09/02/20 21:07 5,000 units .BOLUS ONE Administration - Radiology Interpretation Free Text/Narrative:: Chest x-ray suggest a post Covid pneumonia picture without complete resolution at this time. - Re-Assessments/Exams Free Text/Narrative Re-Assessment/Exam: 09/02/20 21:[address] Carpenter and he will admit the patient for further evaluation and treatment. We did speak to Dr. Mars who felt like putting on Eliquis with her history of GI bleed recently would be very dangerous because there is no way to counteract the Eliquis if she starts to bleed. Therefore will admit her put her on a heparin drip and over the weekend and then consider placing her on warfarin which can be counteracted if she has a GI bleed. 09/02/20 21:14 Present hemoglobin is 9.8. Her PT is 10.9. Her electrolytes are normal. Departure - Departure Time of Disposition: 21:10 Disposition: Admitted As Inpatient 67 Condition: Fair Clinical Impression: History of GI bleed, History of COVID-19, Pneumonia due to COVID-19 virus DVT (deep venous thrombosis) Qualifiers: DVT location: lower extremity Affected thrombotic vein of extremity: popliteal Chronicity: acute Laterality: left Qualified Code(s): I82.432 - Acute embolism and thrombosis of left popliteal vein Sepsis Event Note (ED) - Evaluation Sepsis Screening Result: No Definite Risk - Focused Exam Vital Signs: Vital Signs Temp Pulse Resp BP Pulse Ox 09/02/20 19:30 98.6 F 94 18 122/55 L 91 L ED Communication - ED Communication Date/Time Date: 09/02/20 Time Called: 21:12 - Discussed Case With (1) Discussed Case With (1): Admitting Provider Person/s Notified (1): Mali Leblanc III (He will admit for further evaluation and treatment.) - My Orders Last 24 Hours: My Active Orders 09/02/20 21:13 CXR [Chest 1V Frontal] [CR] Stat 09/02/20 21:15 Heparin Sodium/D5W [Heparin 25,000 Units in D5W 500 ML] 25,000 units in 500 ml IV TITRATE 09/02/20 21:39 Patient Status [ADT] Routine - Assessment/Plan Last 24 Hours: My Active Orders 09/02/20 21:13 CXR [Chest 1V Frontal] [CR] Stat 09/02/20 21:15 Heparin Sodium/D5W [Heparin 25,000 Units in D5W 500 ML] 25,000 units in 500 ml IV TITRATE 09/02/20 21:39 Patient Status [ADT] Routine
[2020-09-02] MEDS ORDERED: Heparin Sodium 5,000 Units/ML Vial IVPUSH ONE (21:06)
[2020-09-02] MEDS: Heparin Sodium/D5W 25,000 UNITS/500 ML BAG IV SCH (21:24)
[2020-09-03] MEDS ORDERED: Calcium Carbonate 500 MG Tab.Chew PO PRN (11:56)
[2020-09-03] MEDS ORDERED: Benzonatate 100 MG Cap PO PRN (11:56)
[2020-09-03] MEDS ORDERED: KETOTIFEN EYEBOTH PRN (11:56)
[2020-09-03] MEDS ORDERED: Triamcinolone Acetonide 0.1% Dental Paste 5 GM Tube DENT PRN (11:56)
[2020-09-03] MEDS ORDERED: Ondansetron 4 MG/2 ML SDV IV PRN (12:06)
[2020-09-03] MEDS ORDERED: Acetaminophen 325 MG Tab PO PRN (12:06)
--- NOTE | 2020-09-03 12:12 | PCM.HP.2 ---
H&P History of Present Illness - General Date of Service: 09/03/20 Admit Problem/Dx: Admission Diagnosis/Problem Admission Diagnosis/Problem DVT, Deep venous thrombosis of lower extremity - History of Present Illness Initial Comments - Free Text/Narative: 80-year-old female patient of Dr. Mars who was referred to the ER secondary to a DVT within the distal superficial femoral and popliteal veins of the left leg. Patient was admitted last month to [facility] in [place] secondary to COVID-19. During that hospitalization, on August 08, 2020 she had a GI bleed that required transfusion. Because of that, it was felt that she may not be a candidate for Eliquis and she would likely benefit from hospitalization and heparinization, therefore if she started having bleeding it could be quickly re versed. Unfortunately, patient is a very poor historian but appears she did have some moderate left lower leg pain and swelling. left leg Pain Score (Numeric/FACES): 2 - Related Data Allergies/Adverse Reactions: Allergies Allergy/AdvReac Type Severity Reaction Status Date / Time levofloxacin [From Levaquin] Allergy Intermediate Rash Verified 09/02/20 23:34 adhesive Allergy Rash Verified 09/02/20 23:34 Iodine and Iodide Containing Allergy Itching Verified 09/02/20 23:34 Produc Penicillins Allergy Diarrhea Verified 09/02/20 23:34 Home Medications: Home Meds Levothyroxine [Synthroid] 88 mcg PO DAILY 04/24/20 [History] Acetaminophen [Non-Aspirin Extra Strength] 500 mg PO BEDTIME PRN 09/02/20 [History] Apixaban [Eliquis] 10 mg PO BID 09/02/20 [History] Benzonatate [Tessalon Perle] 100 mg PO QID PRN 09/02/20 [History] Betamethasone Valerate [Valisone 0.1% Crm] 0 gm TOP DAILY PRN 09/02/20 [History] Calcium Carbonate [Tums] 500 mg PO TID PRN 09/02/20 [History] Docusate Sodium 100 mg PO BID 09/02/20 [History] Ketotifen [Ketotifen 0.025% Ophth Soln] 1 drop EYEBOTH BID PRN 09/02/20 [History] Multivitamin [Daily Multiple Vitamin] 1 each PO DAILY 09/02/20 [History] Pantoprazole Sodium 40 mg PO BID 09/02/20 [History] Sertraline [Zoloft] 25 mg PO DAILY 09/02/20 [History] Triamcinolone Acetonide [Triamcinolone 0.1% Dental Paste] 5 gm BUCCAL BID PRN 09/02/20 [History] Past Medical History Cardiovascular History: Reports: Hypertension Respiratory History: Reports: Other (See Below) Other Respiratory History: 2 liters nasal cannula pt wears at home since last hospital stay. 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: Musculoskeletal History: Reports: Osteoarthritis Other Musculoskeletal History: knee pain, rotator cuff but not surgery Endocrine/Metabolic History: Reports: Hypothyroidism, Obesity/BMI 30+ Other Endocrine/Metabolic History: thyroid issues Do You Give Correction Boluses or Sliding Scale: No - Infectious Disease History Infectious Disease History: Reports: Chicken Pox, Influenza, Measles, Novel Coronavirus - Past Surgical History HEENT Surgical History: Reports: Cataract Surgery, Tonsillectomy, Other (See Below) Other HEENT Surgeries/Procedures: pt wears glasses Cardiovascular Surgical History: Reports: None GI Surgical History: Reports: Appendectomy, Cholecystectomy, Hernia, Abdominal Female Surgical History: Reports: None Endocrine Surgical History: Reports: None Musculoskeletal Surgical History: Reports: None Social & Family History - Family History Family Medical History: No Pertinent Family History - Tobacco Use Tobacco Use Status *Q: Never Tobacco User Second Hand Smoke Exposure: No - Caffeine Use Caffeine Use: Reports: None - Recreational Drug Use Recreational Drug Use: No - Living Situation & Occupation Living situation: Reports: , with Spouse Occupation: Retired H&P Review of Systems - Review of Systems: Review Of Systems: Comprehensive ROS is negative, except as noted in HPI. Exam - Exam Exam: See Below - Vital Signs Vital Signs: Last Vital Signs Temp 97.6 F 09/03/20 04:00 Pulse 84 09/03/20 00:44 Resp 20 09/03/20 00:44 BP 126/63 09/03/20 00:44 Pulse Ox 94 L 09/03/20 00:44 Weight: 194 lb 11.2 oz - Exam Quality Assessment: Supplemental Oxygen (2 L baseline) General: Alert, Oriented HEENT: Conjunctiva Clear, Hearing Intact, Mucosa Moist & [place], Normal Nasal Septum Neck: Supple, Trachea Midline, 2 Lungs: Clear to Auscultation, Normal Respiratory Effort Cardiovascular: Regular Rate, Regular Rhythm GI/Abdominal Exam: Normal Bowel Sounds, Soft, Non-Tender, No Organomegaly, No Distention, No Abnormal Bruit, No Mass Extremities: Normal Range of Motion, Normal Capillary Refill, Pedal Edema (Left worse than right, mild to moderate), Leg Pain (Mild left calf pain) Peripheral Pulses: 1+: Posterior Tibial (L), Posterior Tibial (R), Dorsalis Pedis (L), Dorsalis Pedis (R) Skin: Warm, Dry, Intact Neuro Extensive - Mental Status: Alert, Normal Mood/Affect, Normal Cognition, Slow Response to Commands Neuro Extensive - Motor, Sensory, Reflexes: CN II-XII Intact Psychiatric: Alert, Normal Affect, Normal Mood - Patient Data Lab Results Last 24 hrs: Laboratory Results - last 24 hr 09/02/20 09/02/20 09/02/20 Range/Units 20:05 20:05 20:05 WBC 5.54 (3.98-10.04) K/mm3 RBC 3.36 L (3.98-5.22) M/mm3 Hgb 9.8 L D (11.2-15.7) gm/dl Hct 32.1 L (34.1-44.9) % MCV 95.5 H (79.4-94.8) fl MCH 29.2 (25.6-32.2) pg MCHC 30.5 L (32.2-35.5) g/dl RDW Std Deviation 56.9 H (36.4-46.3) fL Plt Count 242 (182-369) K/mm3 MPV 9.0 L (9.4-12.3) fl Neut % (Auto) 66.1 (34.0-71.1) % Lymph % (Auto) 17.1 L (19.3-51.7) % [place] % (Auto) 13.7 H (4.7-12.5) % Eos % (Auto) 1.3 (0.7-5.8) Baso % (Auto) 0.5 (0.1-1.2) % Neut # (Auto) 3.66 (1.56-6.13) K/mm3 Lymph # (Auto) 0.95 L (1.18-3.74) K/mm3 [place] # (Auto) 0.76 H (0.24-0.36) K/mm3 Eos # (Auto) 0.07 (0.04-0.36) K/mm3 Baso # (Auto) 0.03 (0.01-0.08) K/mm3 PT 10.9 (9.7-12.0) SECONDS INR 1.02 APTT (21.7-31.4) SECONDS Sodium 141 (136-145) mEq/L Potassium 4.0 (3.5-5.1) mEq/L Chloride 104 (98-107) mEq/L Carbon Dioxide 29 (21-32) mEq/L Anion Gap 12.0 (5-15) BUN 10 (7-18) mg/dL Creatinine 0.6 (0.55-1.02) mg/dL Est Cr Clr Drug Dosing 65.65 mL/min Estimated GFR (MDRD) > 60 (>60) mL/min BUN/Creatinine Ratio 16.7 (14-18) Glucose 110 (83-115) mg/dL Calcium 8.3 L (8.5-10.1) mg/dL Total Bilirubin 0.2 (0.2-1.0) mg/dL AST 28 (15-37) U/L ALT 48 (14-59) U/L Alkaline Phosphatase 75 (46-116) U/L Total Protein 5.3 L (6.4-8.2) g/dl Albumin 2.0 L (3.4-5.0) g/dl Globulin 3.3 gm/dL Albumin/Globulin Ratio 0.6 L (1-2) MRSA (PCR) 09/02/20 09/02/20 09/03/20 Range/Units 20:05 22:30 03:30 WBC (3.98-10.04) K/mm3 RBC (3.98-5.22) M/mm3 Hgb (11.2-15.7) gm/dl Hct (34.1-44.9) % MCV (79.4-94.8) fl MCH (25.6-32.2) pg MCHC (32.2-35.5) g/dl RDW Std Deviation (36.4-46.3) fL Plt Count (182-369) K/mm3 MPV (9.4-12.3) fl Neut % (Auto) (34.0-71.1) % Lymph % (Auto) (19.3-51.7) % [place] % (Auto) (4.7-12.5) % Eos % (Auto) (0.7-5.8) Baso % (Auto) (0.1-1.2) % Neut # (Auto) (1.56-6.13) K/mm3 Lymph # (Auto) (1.18-3.74) K/mm3 [place] # (Auto) (0.24-0.36) K/mm3 Eos # (Auto) (0.04-0.36) K/mm3 Baso # (Auto) (0.01-0.08) K/mm3 PT (9.7-12.0) SECONDS INR APTT 24.6 > 139.0 H* D (21.7-31.4) SECONDS Sodium (136-145) mEq/L Potassium (3.5-5.1) mEq/L Chloride (98-107) mEq/L Carbon Dioxide (21-32) mEq/L Anion Gap (5-15) BUN (7-18) mg/dL Creatinine (0.55-1.02) mg/dL Est Cr Clr Drug Dosing mL/min Estimated GFR (MDRD) (>60) mL/min BUN/Creatinine Ratio (14-18) Glucose (83-115) mg/dL Calcium (8.5-10.1) mg/dL Total Bilirubin (0.2-1.0) mg/dL AST (15-37) U/L ALT (14-59) U/L Alkaline Phosphatase (46-116) U/L Total Protein (6.4-8.2) g/dl Albumin (3.4-5.0) g/dl Globulin gm/dL Albumin/Globulin Ratio (1-2) MRSA (PCR) Negative Result Diagrams: 09/02/20 20:05 09/02/20 20:05 Sepsis Event Note - Evaluation Sepsis Screening Result: No Definite Risk - Focused Exam Vital Signs: Vital Signs Temp Temp Pulse Resp BP Pulse Ox 09/03/20 04:00 97.6 F 09/03/20 00:44 97.3 F 84 20 126/63 94 L - Problem List (1) DVT (deep venous thrombosis) SNOMED Code(s): 608628202 ICD Code: I82.409 - ACUTE EMBOLISM AND THOMBOS UNSP DEEP VN UNSP LOWER EXTREMITY Status: Acute Current Visit: Yes Qualifiers: DVT location: lower extremity Affected thrombotic vein of extremity: popliteal Chronicity: acute Laterality: left Qualified Code(s): I82.432 - Acute embolism and thrombosis of left popliteal vein (2) History of COVID-19 SNOMED Code(s): 325708127141111129, 088745060834988594 ICD Code: Z86.16 - PERSONAL HISTORY OF COVID-19 Status: Acute Current Visit: Yes (3) History of GI bleed SNOMED Code(s): 300635575 ICD Code: Z87.19 - PERSONAL HISTORY OF OTHER DISEASES OF THE DIGESTIVE SYSTEM Status: Acute Current Visit: Yes Problem List Initiated/Reviewed/Updated: Yes Orders Last 24hrs: Active Orders 24 hr Category Date Time Status Patient Status [ADT] Routine ADT 09/02/20 21:39 Active Oxygen Therapy Adult [Oxygen Therapy] [RC] ASDIRECTED Care 09/03/20 00:18 Active Up With Assistance [RC] ASDIRECTED Care 09/03/20 00:17 Active VTE/DVT Education [RC] PER UNIT ROUTINE Care 09/03/20 12:00 Ordered Vital Signs [RC] Q4H Care 09/03/20 12:00 Ordered Heart Healthy Diet [DIET] Diet 09/03/20 Dinner Ordered Soft Diet [DIET] Diet 09/03/20 Breakfast Active CXR [Chest 1V Frontal] [CR] Stat Exams 09/02/20 21:13 Taken PTT,PARTIAL THROMBOPLSTIN TIME [COAG] Routine Lab 09/03/20 12:00 Ordered Acetaminophen [TylenoL] Med 09/03/20 12:06 Ordered 650 mg PO Q4H PRN Benzonatate [Tessalon Perles] Med 09/03/20 11:56 Ordered 100 mg PO QID PRN Calcium Carbonate [Tums] Med 09/03/20 11:56 Ordered 500 mg PO TID PRN Docusate Sodium [Colace] Med 09/03/20 21:00 Ordered 100 mg PO BID Heparin Sodium/D5W [Heparin 25,000 Units in D5W 500 ML] Med 09/02/20 21:15 Active 25,000 units in 500 ml IV TITRATE Ketotifen Med 09/03/20 11:56 Ordered 1 drop EYEBOTH BID PRN Levothyroxine [Synthroid] Med 09/04/20 09:00 Ordered 88 mcg PO DAILY Ondansetron [Zofran] Med 09/03/20 12:06 Ordered 4 mg IV Q4H PRN Pantoprazole Sodium [Pantoprazole Sodium] Med 09/03/20 21:00 Ordered 40 mg PO BID Sertraline [Zoloft] Med 09/04/20 09:00 Ordered 25 mg PO DAILY Triamcinolone Acetonide [Oralone 0.1% Dental Paste] Med 09/03/20 11:56 Ordered 5 gm DENT BID PRN Isolation [COMM] Routine Oth 09/03/20 02:13 Ordered Code Status [Resuscitation Status] Routine Resus Stat 09/02/20 23:52 Ordered Medication Orders Acetaminophen (Tylenol) 650 mg PO Q4H PRN PRN Reason: Pain (Mild 1-3)/fever Benzonatate (Tessalon Perles) 100 mg PO QID PRN PRN Reason: Cough Calcium Carbonate/Glycine (Tums) 500 mg PO TID PRN PRN Reason: Heartburn Docusate Sodium (Colace) 100 mg PO BID NAILA Heparin Sodium/Dextrose (Heparin 25,000 Units In D5w 500 Ml) 25,000 units in 500 mls @ 26 mls/hr IV TITRATE NAILA; Protocol Last Titration: 09/03/20 05:59 Dose: 1,035 units/hr, 20.7 mls/hr Documented by: CANDICE Cosigned by: CIELO Admin: 09/02/20 21:24 Dose: 1,300 units/hr, 26 mls/hr Documented by: JOHN Cosigned by: KRISTINA Levothyroxine Sodium (Synthroid) 88 mcg PO DAILY NAILA Non-Formulary Medication (Ketotifen) 1 drop EYEBOTH BID PRN PRN Reason: Itching Non-Formulary Medication (Pantoprazole Sodium [Pantoprazole Sodium]) 40 mg PO BID NAILA Ondansetron HCl (Zofran) 4 mg IV Q4H PRN PRN Reason: Nausea/Vomiting Sertraline HCl (Zoloft) 25 mg PO DAILY NAILA Triamcinolone Acetonide (Oralone 0.1% Dental Paste) 5 gm DENT BID PRN PRN Reason: Itching Assessment/Plan Comment:: Assessment 80-year-old female with history of recent COVID-19 infection with blood re quiring GI bleed 1 month ago was admitted with an acute DVT to the left lower extremity. DVT of the distal superficial femoral and popliteal veins, left History of GI bleed in July while hospitalized with Covid * Started on heparin drip in the emergency department * Hemoglobin 9.8 on admission Severe protein malnutrition versus nephrotic syndrome * Albumin 2.0 * No urine available for protein at this time * Many people after COVID-19 infection have low albumin secondary to poor appetite and protein malnutrition. This is likely the cause of the moderate to severe hypoalbuminemia. No one is available to ask how her appetite has been. This is a bad sign for increased complications. Plan * Admit to floor for IV heparin * Treat with heparin for 48 hours then reevaluate for oral anticoagulation if no bleeding occurs. * Follow hemoglobin closely * Get urine for protein * Dietary consult * CODE STATUS full code * VTE prophylaxis with heparin drip - Mortality Measure Prognosis:: Good
--- NOTE | 2020-09-03 19:52 | CR ---
Chest: Portable view of the chest was obtained. Comparison: Prior chest CT study of 08/10/20 and chest x-ray performed on 08/07/20. Diffuse parenchymal change is noted within both lungs. Findings remain fairly stable to prior studies. Heart size and mediastinum are within normal limits for portable technique. Bony structures are grossly intact. Impression: 1. Diffuse parenchymal change within both lungs. Findings are fairly stable to chest CT and chest x-ray performed in late July. 2. Nothing acute is otherwise seen. Diagnostic code #3
[2020-09-03] MEDS: Pantoprazole 40 MG Tab.CR PO SCH (21:22)
[2020-09-03] MEDS: Docusate Sodium 100 MG Cap PO SCH (21:22)
[2020-09-03] MEDS: Heparin Sodium/D5W 25,000 UNITS/500 ML BAG IV SCH (22:54)
[2020-09-04] MEDS: Levothyroxine 88 MCG Tab PO SCH (05:34)
[2020-09-04] MEDS ORDERED: Heparin Sodium 5,000 Units/ML Vial IVPUSH ONE (06:05)
[2020-09-04] MEDS: Sertraline 25 MG Tab PO SCH (08:48)
[2020-09-04] MEDS: Docusate Sodium 100 MG Cap PO SCH ×2 (08:49→20:22)
[2020-09-04] MEDS: Pantoprazole 40 MG Tab.CR PO SCH ×2 (08:49→20:22)
[2020-09-04] MEDS ORDERED: Magnesium Hydroxide 400 MG/5 ML Susp 30 ML Cup PO ONE (09:07)
--- NOTE | 2020-09-04 21:51 | PCM.PN ---
- General Info Date of Service: 09/04/20 Admission Dx/Problem (Free Text): Admission Diagnosis/Problem Admission Diagnosis/Problem DVT, Deep venous thrombosis of lower extremity Subjective Update: Yessi is doing well. She denies any nausea or vomiting. She has some discomfort and swelling in that left lower extremity. - Review of Systems General: Reports: No Symptoms HEENT: Reports: No Symptoms Pulmonary: Reports: No Symptoms Cardiovascular: Reports: No Symptoms Musculoskeletal: Reports: Leg Pain (Left lower extremity) Skin: Reports: No Symptoms Neurological: Reports: No Symptoms Psychiatric: Reports: No Symptoms - Patient Data Vitals - Most Recent: Last Vital Signs Temp 98.2 F 09/04/20 20:52 Pulse 76 09/04/20 20:52 Resp 24 H 09/04/20 20:52 BP 120/53 L 09/04/20 20:52 Pulse Ox 95 09/04/20 20:52 Weight - Most Recent: 197 lb 6.4 oz I&O - Last 24 Hours: Intake & Output 09/04/20 09/04/20 09/04/20 06:59 14:59 22:59 Intake Total 425 360 638 Output Total 250 Balance 175 360 638 Lab Results Last 24 Hours: Laboratory Results - last 24 hr 09/03/20 09/04/20 09/04/20 Range/Units 22:25 00:45 05:00 WBC 5.78 (3.98-10.04) K/mm3 RBC 3.24 L (3.98-5.22) M/mm3 Hgb 9.4 L (11.2-15.7) gm/dl Hct 31.2 L (34.1-44.9) % MCV 96.3 H (79.4-94.8) fl MCH 29.0 (25.6-32.2) pg MCHC 30.1 L (32.2-35.5) g/dl RDW Std Deviation 57.1 H (36.4-46.3) fL Plt Count 291 (182-369) K/mm3 MPV 9.9 (9.4-12.3) fl Neut % (Auto) 61.1 (34.0-71.1) % Lymph % (Auto) 20.9 (19.3-51.7) % [place] % (Auto) 12.6 H (4.7-12.5) % Eos % (Auto) 1.4 (0.7-5.8) Baso % (Auto) 0.7 (0.1-1.2) % Neut # (Auto) 3.53 (1.56-6.13) K/mm3 Lymph # (Auto) 1.21 (1.18-3.74) K/mm3 [place] # (Auto) 0.73 H (0.24-0.36) K/mm3 Eos # (Auto) 0.08 (0.04-0.36) K/mm3 Baso # (Auto) 0.04 (0.01-0.08) K/mm3 Manual Slide Review Normal smear APTT 58.9 H (21.7-31.4) SECONDS Sodium (136-145) mEq/L Potassium (3.5-5.1) mEq/L Chloride (98-107) mEq/L Carbon Dioxide (21-32) mEq/L Anion Gap (5-15) BUN (7-18) mg/dL Creatinine (0.55-1.02) mg/dL Est Cr Clr Drug Dosing mL/min Estimated GFR (MDRD) (>60) mL/min BUN/Creatinine Ratio (14-18) Glucose (83-115) mg/dL Calcium (8.5-10.1) mg/dL Phosphorus (2.6-4.7) mg/dL Magnesium (1.8-2.4) mg/dl Total Bilirubin (0.2-1.0) mg/dL AST (15-37) U/L ALT (14-59) U/L Alkaline Phosphatase (46-116) U/L Total Protein (6.4-8.2) g/dl Albumin (3.4-5.0) g/dl Globulin gm/dL Albumin/Globulin Ratio (1-2) Ur Random Creatinine 17.2 L (30.0-125.0) mg/dL U Random Total Protein < 6.0 (0.0-11.8) mg/dL Protein/Creatinin Ratio TNP 09/04/20 09/04/20 09/04/20 Range/Units 05:00 05:00 12:07 WBC (3.98-10.04) K/mm3 RBC (3.98-5.22) M/mm3 Hgb (11.2-15.7) gm/dl Hct (34.1-44.9) % MCV (79.4-94.8) fl MCH (25.6-32.2) pg MCHC (32.2-35.5) g/dl RDW Std Deviation (36.4-46.3) fL Plt Count (182-369) K/mm3 MPV (9.4-12.3) fl Neut % (Auto) (34.0-71.1) % Lymph % (Auto) (19.3-51.7) % [place] % (Auto) (4.7-12.5) % Eos % (Auto) (0.7-5.8) Baso % (Auto) (0.1-1.2) % Neut # (Auto) (1.56-6.13) K/mm3 Lymph # (Auto) (1.18-3.74) K/mm3 [place] # (Auto) (0.24-0.36) K/mm3 Eos # (Auto) (0.04-0.36) K/mm3 Baso # (Auto) (0.01-0.08) K/mm3 Manual Slide Review APTT 47.0 H 66.3 H (21.7-31.4) SECONDS Sodium 142 (136-145) mEq/L Potassium 4.2 (3.5-5.1) mEq/L Chloride 107 (98-107) mEq/L Carbon Dioxide 31 (21-32) mEq/L Anion Gap 8.2 (5-15) BUN 7 (7-18) mg/dL Creatinine 0.5 L (0.55-1.02) mg/dL Est Cr Clr Drug Dosing 78.78 mL/min Estimated GFR (MDRD) > 60 (>60) mL/min BUN/Creatinine Ratio 14.0 (14-18) Glucose 84 (83-115) mg/dL Calcium 8.2 L (8.5-10.1) mg/dL Phosphorus 4.0 (2.6-4.7) mg/dL Magnesium 2.3 (1.8-2.4) mg/dl Total Bilirubin 0.3 (0.2-1.0) mg/dL AST 36 (15-37) U/L ALT 36 (14-59) U/L Alkaline Phosphatase 64 (46-116) U/L Total Protein 5.0 L (6.4-8.2) g/dl Albumin 1.7 L (3.4-5.0) g/dl Globulin 3.3 gm/dL Albumin/Globulin Ratio 0.5 L (1-2) Ur Random Creatinine (30.0-125.0) mg/dL U Random Total Protein (0.0-11.8) mg/dL Protein/Creatinin Ratio 09/04/20 Range/Units 18:10 WBC (3.98-10.04) K/mm3 RBC (3.98-5.22) M/mm3 Hgb (11.2-15.7) gm/dl Hct (34.1-44.9) % MCV (79.4-94.8) fl MCH (25.6-32.2) pg MCHC (32.2-35.5) g/dl RDW Std Deviation (36.4-46.3) fL Plt Count (182-369) K/mm3 MPV (9.4-12.3) fl Neut % (Auto) (34.0-71.1) % Lymph % (Auto) (19.3-51.7) % [place] % (Auto) (4.7-12.5) % Eos % (Auto) (0.7-5.8) Baso % (Auto) (0.1-1.2) % Neut # (Auto) (1.56-6.13) K/mm3 Lymph # (Auto) (1.18-3.74) K/mm3 [place] # (Auto) (0.24-0.36) K/mm3 Eos # (Auto) (0.04-0.36) K/mm3 Baso # (Auto) (0.01-0.08) K/mm3 Manual Slide Review APTT 60.9 H (21.7-31.4) SECONDS Sodium (136-145) mEq/L Potassium (3.5-5.1) mEq/L Chloride (98-107) mEq/L Carbon Dioxide (21-32) mEq/L Anion Gap (5-15) BUN (7-18) mg/dL Creatinine (0.55-1.02) mg/dL Est Cr Clr Drug Dosing mL/min Estimated GFR (MDRD) (>60) mL/min BUN/Creatinine Ratio (14-18) Glucose (83-115) mg/dL Calcium (8.5-10.1) mg/dL Phosphorus (2.6-4.7) mg/dL Magnesium (1.8-2.4) mg/dl Total Bilirubin (0.2-1.0) mg/dL AST (15-37) U/L ALT (14-59) U/L Alkaline Phosphatase (46-116) U/L Total Protein (6.4-8.2) g/dl Albumin (3.4-5.0) g/dl Globulin gm/dL Albumin/Globulin Ratio (1-2) Ur Random Creatinine (30.0-125.0) mg/dL U Random Total Protein (0.0-11.8) mg/dL Protein/Creatinin Ratio Med Orders - Current: Current Medications Acetaminophen (Tylenol) 650 mg PO Q4H PRN PRN Reason: Pain (Mild 1-3)/fever Benzonatate (Tessalon Perles) 100 mg PO QID PRN PRN Reason: Cough Calcium Carbonate/Glycine (Tums) 500 mg PO TID PRN PRN Reason: Heartburn Docusate Sodium (Colace) 100 mg PO BID [facility] Last Admin: 09/04/20 20:22 Dose: 100 mg Documented by: Heparin Sodium/Dextrose (Heparin 25,000 Units In D5w 500 Ml) 25,000 units in 500 mls @ 26 mls/hr IV TITRATE [facility]; Protocol Last Titration: 09/04/20 06:54 Dose: 1,030 units/hr, 20.6 mls/hr Documented by: Levothyroxine Sodium (Synthroid) 88 mcg PO ACBREAKFAST [facility] Last Admin: 09/04/20 05:34 Dose: 88 mcg Documented by: Ketotifen Eye Drop * (* Ptom) 1 drop EYEBOTH BID PRN PRN Reason: Itching Ondansetron HCl (Zofran) 4 mg IV Q4H PRN PRN Reason: Nausea/Vomiting Pantoprazole Sodium (Protonix) 40 mg PO BID [facility] Last Admin: 09/04/20 20:22 Dose: 40 mg Documented by: Sertraline HCl (Zoloft) 25 mg PO DAILY [facility] Last Admin: 09/04/20 08:48 Dose: 25 mg Documented by: Triamcinolone Acetonide (Oralone 0.1% Dental Paste) 0 gm DENT BID PRN PRN Reason: Itching Discontinued Medications Heparin Sodium (Porcine) (Heparin Sodium) 5,000 units IVPUSH .BOLUS ONE Stop: 09/02/20 21:07 Last Admin: 09/02/20 21:24 Dose: 5,000 units Documented by: Heparin Sodium (Porcine) (Heparin Sodium) 1,500 units IVPUSH .BOLUS ONE Stop: 09/04/20 06:06 Last Admin: 09/04/20 06:23 Dose: 1,500 units Documented by: Magnesium Hydroxide (Milk Of Magnesia) 30 ml PO ONETIME ONE Stop: 09/04/20 09:08 Last Admin: 09/04/20 09:21 Dose: 30 ml Documented by: - Exam Quality Assessment: Supplemental Oxygen General: Alert, Oriented HEENT: Pupils Equal, Mucous Membr. Moist/[place] Lungs: Normal Respiratory Effort, Crackles Cardiovascular: Regular Rate, Regular Rhythm GI/Abdominal Exam: Normal Bowel Sounds, Soft, Non-Tender, No Distention Extremities: Normal Inspection, Normal Capillary Refill, Pedal Edema (Left lower extremity 1+ pitting edema with tenderness at the calf.) Skin: Warm, Dry, Intact Psy/Mental Status: Alert, Normal Affect, Normal Mood Sepsis Event Note - Evaluation Sepsis Screening Result: No Definite Risk - Focused Exam Vital Signs: Vital Signs Temp Pulse Resp BP Pulse Ox 09/04/20 20:52 98.2 F 76 24 H 120/53 L 95 09/04/20 15:31 98.2 F 77 20 125/73 92 L 09/04/20 11:44 98.8 F 82 16 120/86 94 L - Problem List & Annotations (1) DVT (deep venous thrombosis) SNOMED Code(s): 246689956 Code(s): I82.409 - ACUTE EMBOLISM AND THOMBOS UNSP DEEP VN UNSP LOWER EXTREMITY Status: Acute Current Visit: Yes Qualifiers: DVT location: lower extremity Affected thrombotic vein of extremity: popliteal Chronicity: acute Laterality: left Qualified Code(s): I82.432 - Acute embolism and thrombosis of left popliteal vein (2) History of COVID-19 SNOMED Code(s): 140268472212969982, 303742099849543508 Code(s): Z86.16 - PERSONAL HISTORY OF COVID-19 Status: Acute Current Visit: Yes (3) History of GI bleed SNOMED Code(s): 956091591 Code(s): Z87.19 - PERSONAL HISTORY OF OTHER DISEASES OF THE DIGESTIVE SYSTEM Status: Acute Current Visit: Yes - Problem List Review Problem List Initiated/Reviewed/Updated: Yes - My Orders Last 24 Hours: My Active Orders 09/03/20 21:00 Docusate Sodium [Colace] 100 mg PO BID Pantoprazole [ProTONIX] 40 mg PO BID 09/04/20 06:00 Levothyroxine [Synthroid] 88 mcg PO ACBREAKFAST 09/04/20 09:00 Sertraline [Zoloft] 25 mg PO DAILY 09/05/20 07:00 CBC W/O DIFF,HEMOGRAM [HEME] MOTH@0700 09/05/20 18:00 aPTT [PTT,PARTIAL THROMBOPLSTIN TIME] [COAG] Timed 09/08/20 07:00 CBC W/O DIFF,HEMOGRAM [HEME] MOTH@0700 09/12/20 07:00 CBC W/O DIFF,HEMOGRAM [HEME] MOTH@0700 09/15/20 07:00 CBC W/O DIFF,HEMOGRAM [HEME] MOTH@0700 09/19/20 07:00 CBC W/O DIFF,HEMOGRAM [HEME] MOTH@0700 09/22/20 07:00 CBC W/O DIFF,HEMOGRAM [HEME] MOTH@0700 - Plan Plan:: Assessment 80-year-old female with history of recent COVID-19 infection with blood requiring GI bleed 1 month ago was admitted with an acute DVT to the left lower extremity. 09/03/2020 DVT of the distal superficial femoral and popliteal veins, left History of GI bleed in July while hospitalized with Covid * Started on heparin drip in the emergency department * Hemoglobin 9.8 on admission Severe protein malnutrition versus nephrotic syndrome * Albumin 2.0 * No urine available for protein at this time * Many people after COVID-19 infection have low albumin secondary to poor appetite and protein malnutrition. This is likely the cause of the moderate to severe hypoalbuminemia. No one is available to ask how her appetite has been. This is a bad sign for increased complications. Plan * Admit to floor for IV heparin * Treat with heparin for 48 hours then reevaluate for oral anticoagulation if no bleeding occurs. * Follow hemoglobin closely * Get urine for protein * Dietary consult * CODE STATUS full code * VTE prophylaxis with heparin drip 09/04/2020 80-year-old female with distal superficial femoral and popliteal vein DVT being treated with heparin drip. Patient has had not had any hematochezia or melena. Hemoglobin is 9.4 today. Barely down from 9.8. CBC scheduled for the morning. Patient continues on 2 L nasal cannula. Albumin did decrease to 1.7. Urine protein creatinine ratio was negative ruling out nephrotic syndrome. This is likely secondary to severe protein malnutrition. Plan: Consult Dr. Mars to discuss switching from heparin to oral anticoagulation. Dietary consult for hypoalbuminemia. Continue following hemoglobin in the morning and plan discharge pending Dr. Mars's suggestion.
[2020-09-05] MEDS: Heparin Sodium/D5W 25,000 UNITS/500 ML BAG IV SCH (00:59)
[2020-09-05] MEDS: Levothyroxine 88 MCG Tab PO SCH (05:28)
--- NOTE | 2020-09-05 08:32 | PCM.PN ---
<Derrick Ohara - Last Filed: 09/05/20 11:39> - General Info Date of Service: 09/05/20 Admission Dx/Problem (Free Text): Admission Diagnosis/Problem Admission Diagnosis/Problem DVT, Deep venous thrombosis of lower extremity Subjective Update: In to see Yessi. She reports she is doing quite well and has no real concerns. She continues to have edema and pain to her left leg although she has good palpable pulses bilaterally. She continues to require oxygen but states that this is her norm since her Covid infection. She reports she does not feel any worse than normal. No nursing concerns. Functional Status: Reports: Pain Controlled, Tolerating Diet, Ambulating, Urinating. Denies: New Symptoms - Review of Systems General: Reports: Weakness. Denies: Fever, Fatigue, Malaise, Chills HEENT: Reports: No Symptoms. Denies: Headaches, Sore Throat Pulmonary: Reports: Shortness of Breath (chronic ). Denies: Cough, Sputum Cardiovascular: Reports: Dyspnea on Exertion (chronic ), Edema (left leg ). Denies: Chest Pain, Palpitations, Lightheadedness Gastrointestinal: Reports: No Symptoms. Denies: Abdominal Pain, Constipation, Diarrhea, Nausea, Vomiting Genitourinary: Reports: No Symptoms. Denies: Pain Musculoskeletal: Reports: No Symptoms Skin: Reports: No Symptoms. Denies: Cyanosis Neurological: Reports: Difficulty Walking, Weakness. Denies: Confusion, Gait Disturbance Psychiatric: Reports: No Symptoms - Patient Data Vitals - Most Recent: Last Vital Signs Temp 98.1 F 09/05/20 07:15 Pulse 83 09/05/20 07:15 Resp 16 09/05/20 07:15 BP 136/87 09/05/20 07:15 Pulse Ox 93 L 09/05/20 07:15 Weight - Most Recent: 90.945 kg I&O - Last 24 Hours: Intake & Output 09/04/20 09/05/20 09/05/20 22:59 06:59 14:59 Intake Total 638 525 Output Total 600 Balance 638 -75 Lab Results Last 24 Hours: Laboratory Results - last 24 hr 09/04/20 09/04/20 09/05/20 Range/Units 12:07 18:10 05:35 WBC 5.78 (3.98-10.04) K/mm3 RBC 3.38 L (3.98-5.22) M/mm3 Hgb 9.9 L (11.2-15.7) gm/dl Hct 32.1 L (34.1-44.9) % MCV 95.0 H (79.4-94.8) fl MCH 29.3 (25.6-32.2) pg MCHC 30.8 L (32.2-35.5) g/dl RDW Std Deviation 56.2 H (36.4-46.3) fL Plt Count 333 (182-369) K/mm3 MPV 9.7 (9.4-12.3) fl APTT 66.3 H 60.9 H (21.7-31.4) SECONDS 09/05/20 Range/Units 05:35 WBC (3.98-10.04) K/mm3 RBC (3.98-5.22) M/mm3 Hgb (11.2-15.7) gm/dl Hct (34.1-44.9) % MCV (79.4-94.8) fl MCH (25.6-32.2) pg MCHC (32.2-35.5) g/dl RDW Std Deviation (36.4-46.3) fL Plt Count (182-369) K/mm3 MPV (9.4-12.3) fl APTT 80.0 H (21.7-31.4) SECONDS Med Orders - Current: Current Medications Acetaminophen (Tylenol) 650 mg PO Q4H PRN PRN Reason: Pain (Mild 1-3)/fever Benzonatate (Tessalon Perles) 100 mg PO QID PRN PRN Reason: Cough Calcium Carbonate/Glycine (Tums) 500 mg PO TID PRN PRN Reason: Heartburn Docusate Sodium (Colace) 100 mg PO BID [facility] Last Admin: 09/04/20 20:22 Dose: 100 mg Documented by: Heparin Sodium/Dextrose (Heparin 25,000 Units In D5w 500 Ml) 25,000 units in 500 mls @ 26 mls/hr IV TITRATE [facility]; Protocol Last Titration: 09/05/20 06:26 Dose: 855 units/hr, 17.1 mls/hr Documented by: Levothyroxine Sodium (Synthroid) 88 mcg PO ACBREAKFAST [facility] Last Admin: 09/05/20 05:28 Dose: 88 mcg Documented by: Ketotifen Eye Drop * (* Ptom) 1 drop EYEBOTH BID PRN PRN Reason: Itching Ondansetron HCl (Zofran) 4 mg IV Q4H PRN PRN Reason: Nausea/Vomiting Pantoprazole Sodium (Protonix) 40 mg PO BID [facility] Last Admin: 09/04/20 20:22 Dose: 40 mg Documented by: Sertraline HCl (Zoloft) 25 mg PO DAILY [facility] Last Admin: 09/04/20 08:48 Dose: 25 mg Documented by: Triamcinolone Acetonide (Oralone 0.1% Dental Paste) 0 gm DENT BID PRN PRN Reason: Itching Discontinued Medications Heparin Sodium (Porcine) (Heparin Sodium) 5,000 units IVPUSH .BOLUS ONE Stop: 09/02/20 21:07 Last Admin: 09/02/20 21:24 Dose: 5,000 units Documented by: Heparin Sodium (Porcine) (Heparin Sodium) 1,500 units IVPUSH .BOLUS ONE Stop: 09/04/20 06:06 Last Admin: 09/04/20 06:23 Dose: 1,500 units Documented by: Magnesium Hydroxide (Milk Of Magnesia) 30 ml PO ONETIME ONE Stop: 09/04/20 09:08 Last Admin: 09/04/20 09:21 Dose: 30 ml Documented by: - Exam Quality Assessment: Supplemental Oxygen (3L ), DVT Prophylaxis General: Alert, Oriented, Cooperative, No Acute Distress HEENT: Pupils Equal, Pupils Reactive, Mucous Membr. Moist/[place] Neck: Supple, Trachea Midline Lungs: Clear to Auscultation, Normal Respiratory Effort Cardiovascular: Regular Rate, Regular Rhythm GI/Abdominal Exam: Normal Bowel Sounds, Soft, Non-Tender, No Distention (Female) Exam: Deferred Back Exam: Normal Inspection, Full Range of Motion Extremities: Normal Range of Motion, Non-Tender, Normal Capillary Refill, Pedal Edema (left leg 1+ ), Leg Pain (left calf ). No: Limited Range of Motion Peripheral Pulses: 1+: Dorsalis Pedis (L), Dorsalis Pedis (R), 2+: Radial (L), Radial (R) Skin: Warm, Dry, Intact Neurological: No New Focal Deficit Psy/Mental Status: Alert, Normal Affect, Normal Mood Sepsis Event Note - Evaluation Sepsis Screening Result: No Definite Risk - Focused Exam Vital Signs: Vital Signs Temp Pulse Resp BP Pulse Ox 09/05/20 07:15 98.1 F 83 16 136/87 93 L 09/05/20 04:59 97.5 F 80 20 109/48 L 94 L 09/05/20 04:58 97.3 F 91 20 94 L 09/05/20 00:32 97.7 F 78 18 122/51 L 95 09/04/20 20:52 98.2 F 76 24 H 120/53 L 95 - Problem List & Annotations (1) DVT (deep venous thrombosis) SNOMED Code(s): 796536680 Code(s): I82.409 - ACUTE EMBOLISM AND THOMBOS UNSP DEEP VN UNSP LOWER EXTREMITY Status: Acute Priority: High Current Visit: Yes Qualifiers: DVT location: lower extremity Affected thrombotic vein of extremity: popliteal Chronicity: acute Laterality: left Qualified Code(s): I82.432 - Acute embolism and thrombosis of left popliteal vein (2) History of COVID-19 SNOMED Code(s): 838451988936821399, 908357799637587846 Code(s): Z86.16 - PERSONAL HISTORY OF COVID-19 Status: Chronic Priority: Medium Current Visit: Yes (3) History of GI bleed SNOMED Code(s): 737563215 Code(s): Z87.19 - PERSONAL HISTORY OF OTHER DISEASES OF THE DIGESTIVE SYSTEM Status: Chronic Priority: Medium Current Visit: Yes - Problem List Review Problem List Initiated/Reviewed/Updated: Yes - Plan Plan:: Assessment 80-year-old female with history of recent COVID-19 infection with blood requiring GI bleed 1 month ago was admitted with an acute DVT to the left lower extremity. 09/03/2020 DVT of the distal superficial femoral and popliteal veins, left History of GI bleed in July while hospitalized with Covid * Started on heparin drip in the emergency department * Hemoglobin 9.8 on admission Severe protein malnutrition versus nephrotic syndrome * Albumin 2.0 * No urine available for protein at this time * Many people after COVID-19 infection have low albumin secondary to poor appetite and protein malnutrition. This is likely the cause of the moderate to severe hypoalbuminemia. No one is available to ask how her appetite has been. This is a bad sign for increased complications. Plan * Admit to floor for IV heparin * Treat with heparin for 48 hours then reevaluate for oral anticoagulation if no bleeding occurs. * Follow hemoglobin closely * Get urine for protein * Dietary consult * CODE STATUS full code * VTE prophylaxis with heparin drip 09/04/2020 80-year-old female with distal superficial femoral and popliteal vein DVT being treated with heparin drip. Patient has had not had any hematochezia or melena. Hemoglobin is 9.4 today. Barely down from 9.8. CBC scheduled for the morning. Patient continues on 2 L nasal cannula. Albumin did decrease to 1.7. Urine protein creatinine ratio was negative ruling out nephrotic syndrome. This is likely secondary to severe protein malnutrition. Plan: Consult Dr. Mars to discuss switching from heparin to oral anticoagulation. Dietary consult for hypoalbuminemia. Continue following hemoglobin in the morning and plan discharge pending Dr. Mars's suggestion. 09/04/2020 40-year-old female with history of Covid infection and GI bleed who was admitted due to DVT within the superficial femoral and popliteal veins. She continues on a heparin drip and there are no signs of active bleeding. Hemoglobin today is up to 9.9. She continues to require oxygen and is on 3 L today, which she says is chronic for her since her Covid infection. She continues to be quite weak and we will add PT and OT to evaluate her. Attempted to contact Dr. Mars, the patient's primary care provider without success. We will therefore start patient on warfarin given her recent GI bleed history and concerns over future bleeding utilizing Eliquis or Xarelto. Patient will therefore need to be hospitalized until she is therapeutic. Will monitor INR along with CBC. We will continue to monitor for signs of acute GI bleed. We will continue heparin drip for bridging until warfarin is therapeutic. Dietary consult today. <Elvis Goodman - Last Filed: 09/05/20 13:49> - Patient Data Vitals - Most Recent: Last Vital Signs Temp 36.8 C 09/05/20 12:05 Pulse 72 09/05/20 12:05 Resp 30 H 09/05/20 12:05 BP 101/66 09/05/20 12:05 Pulse Ox 93 L 09/05/20 12:05 I&O - Last 24 Hours: Intake & Output 09/04/20 09/05/20 09/05/20 22:59 06:59 14:59 Intake Total 1058 525 120 Output Total 600 Balance 1058 -75 120 Lab Results Last 24 Hours: Laboratory Results - last 24 hr 09/04/20 09/05/20 09/05/20 Range/Units 18:10 05:35 05:35 WBC 5.78 (3.98-10.04) K/mm3 RBC 3.38 L (3.98-5.22) M/mm3 Hgb 9.9 L (11.2-15.7) gm/dl Hct 32.1 L (34.1-44.9) % MCV 95.0 H (79.4-94.8) fl MCH 29.3 (25.6-32.2) pg MCHC 30.8 L (32.2-35.5) g/dl RDW Std Deviation 56.2 H (36.4-46.3) fL Plt Count 333 (182-369) K/mm3 MPV 9.7 (9.4-12.3) fl APTT 60.9 H 80.0 H (21.7-31.4) SECONDS 09/05/20 Range/Units 11:03 WBC (3.98-10.04) K/mm3 RBC (3.98-5.22) M/mm3 Hgb (11.2-15.7) gm/dl Hct (34.1-44.9) % MCV (79.4-94.8) fl MCH (25.6-32.2) pg MCHC (32.2-35.5) g/dl RDW Std Deviation (36.4-46.3) fL Plt Count (182-369) K/mm3 MPV (9.4-12.3) fl APTT 55.8 H D (21.7-31.4) SECONDS Med Orders - Current: Current Medications Acetaminophen (Tylenol) 650 mg PO Q4H PRN PRN Reason: Pain (Mild 1-3)/fever Benzonatate (Tessalon Perles) 100 mg PO QID PRN PRN Reason: Cough Last Admin: 09/05/20 08:46 Dose: 100 mg Documented by: Calcium Carbonate/Glycine (Tums) 500 mg PO TID PRN PRN Reason: Heartburn Docusate Sodium (Colace) 100 mg PO BID [facility] Last Admin: 09/05/20 08:46 Dose: 100 mg Documented by: Heparin Sodium/Dextrose (Heparin 25,000 Units In D5w 500 Ml) 25,000 units in 500 mls @ 26 mls/hr IV TITRATE [facility]; Protocol Last Titration: 09/05/20 06:26 Dose: 855 units/hr, 17.1 mls/hr Documented by: Levothyroxine Sodium (Synthroid) 88 mcg PO ACBREAKFAST [facility] Last Admin: 09/05/20 05:28 Dose: 88 mcg Documented by: Ketotifen Eye Drop * (* Ptom) 1 drop EYEBOTH BID PRN PRN Reason: Itching Ondansetron HCl (Zofran) 4 mg IV Q4H PRN PRN Reason: Nausea/Vomiting Pantoprazole Sodium (Protonix) 40 mg PO BID [facility] Last Admin: 09/05/20 08:46 Dose: 40 mg Documented by: Sertraline HCl (Zoloft) 25 mg PO DAILY [facility] Last Admin: 09/05/20 08:47 Dose: 25 mg Documented by: Triamcinolone Acetonide (Triamcinolone Acetonide 0.1% Crm) 0 gm TOP BID PRN PRN Reason: Itching/rash Warfarin Sodium (Pharmacy To Dose - Warfarin) 1 dose .XX ASDIRECTED PRN PRN Reason: RX TO DOSE WARFARIN Warfarin Sodium (Coumadin) 4 mg PO QPM [facility] Discontinued Medications Heparin Sodium (Porcine) (Heparin Sodium) 5,000 units IVPUSH .BOLUS ONE Stop: 09/02/20 21:07 Last Admin: 09/02/20 21:24 Dose: 5,000 units Documented by: Heparin Sodium (Porcine) (Heparin Sodium) 1,500 units IVPUSH .BOLUS ONE Stop: 09/04/20 06:06 Last Admin: 09/04/20 06:23 Dose: 1,500 units Documented by: Magnesium Hydroxide (Milk Of Magnesia) 30 ml PO ONETIME ONE Stop: 09/04/20 09:08 Last Admin: 09/04/20 09:21 Dose: 30 ml Documented by: Triamcinolone Acetonide (Oralone 0.1% Dental Paste) 0 gm DENT BID PRN PRN Reason: Itching Sepsis Event Note - Focused Exam Vital Signs: Vital Signs Temp Pulse Resp BP Pulse Ox 09/05/20 12:05 36.8 C 72 30 H 101/66 93 L 09/05/20 11:16 36.5 C 79 18 100/69 97 09/05/20 07:15 36.7 C 83 16 136/87 93 L 09/05/20 04:59 36.4 C 80 20 109/48 L 94 L 09/05/20 04:58 36.3 C 91 20 94 L - My Orders Last 24 Hours: My Active Orders 09/05/20 17:00 aPTT [PTT,PARTIAL THROMBOPLSTIN TIME] [COAG] Routine - Plan Plan:: I have seen and examined the patient independently of Derrick Hodges PA-C. I have reviewed the orders and agree with the plan of care as outlined by him. I have discussed the case with him. Please see orders.
[2020-09-05] MEDS: Pantoprazole 40 MG Tab.CR PO SCH ×2 (08:46→20:27)
[2020-09-05] MEDS: Docusate Sodium 100 MG Cap PO SCH ×2 (08:46→20:27)
[2020-09-05] MEDS: Sertraline 25 MG Tab PO SCH (08:47)
[2020-09-05] MEDS ORDERED: Triamcinolone Acetonide 0.1% Crm 15 GM Tube TOP PRN (13:22)
[2020-09-05] MEDS: Warfarin 4 MG Tab PO SCH (17:33)
[2020-09-06] MEDS: Levothyroxine 88 MCG Tab PO SCH ×2 (04:13→06:32)
[2020-09-06] MEDS: Heparin Sodium/D5W 25,000 UNITS/500 ML BAG IV SCH (04:17)
--- NOTE | 2020-09-06 07:20 | PCM.PN ---
<Derrick Ohara - Last Filed: 09/06/20 10:53> - General Info Date of Service: 09/06/20 Admission Dx/Problem (Free Text): Admission Diagnosis/Problem Admission Diagnosis/Problem DVT, Deep venous thrombosis of lower extremity Subjective Update: In to see Yessi. She is sitting in the chair and nursing students are assisting her with washing her face. She reports continued left calf pain with palpation however it is less than before. Good pulses noted on all extremities. She is working with PT and OT. We have started warfarin and her bridging with heparin. INR today is 1.02. She will remain hospitalized until INR is within therapeutic limits. Functional Status: Reports: Pain Controlled, Tolerating Diet, Ambulating, Urinating. Denies: New Symptoms - Review of Systems General: Reports: Weakness. Denies: Fever, Fatigue, Malaise, Chills HEENT: Reports: No Symptoms. Denies: Headaches, Sore Throat Pulmonary: Reports: Shortness of Breath (baseline ). Denies: Cough, Sputum, Wheezing Cardiovascular: Reports: No Symptoms, Dyspnea on Exertion (baseline ). Denies: Chest Pain, Edema Gastrointestinal: Reports: No Symptoms. Denies: Abdominal Pain, Constipation, Diarrhea, Nausea, Vomiting Genitourinary: Reports: No Symptoms. Denies: Pain Musculoskeletal: Reports: Leg Pain (left ) Skin: Reports: No Symptoms. Denies: Cyanosis Neurological: Reports: Difficulty Walking, Weakness, Gait Disturbance Psychiatric: Reports: No Symptoms - Patient Data Vitals - Most Recent: Last Vital Signs Temp 98.6 F 09/06/20 04:14 Pulse 84 09/06/20 04:14 Resp 16 09/06/20 04:14 BP 130/45 L 09/06/20 04:14 Pulse Ox 92 L 09/06/20 04:14 Weight - Most Recent: 87.634 kg I&O - Last 24 Hours: Intake & Output 09/05/20 09/06/20 09/06/20 22:59 06:59 14:59 Intake Total 992 594 Output Total 400 775 Balance 592 -181 Lab Results Last 24 Hours: Laboratory Results - last 24 hr 09/05/20 09/05/20 09/06/20 Range/Units 11:03 17:30 05:53 PT 10.9 (9.7-12.0) SECONDS INR 1.02 APTT 55.8 H D 58.5 H (21.7-31.4) SECONDS 09/06/20 Range/Units 05:53 PT (9.7-12.0) SECONDS INR APTT 53.7 H (21.7-31.4) SECONDS Med Orders - Current: Current Medications Acetaminophen (Tylenol) 650 mg PO Q4H PRN PRN Reason: Pain (Mild 1-3)/fever Benzonatate (Tessalon Perles) 100 mg PO QID PRN PRN Reason: Cough Last Admin: 09/05/20 08:46 Dose: 100 mg Documented by: Calcium Carbonate/Glycine (Tums) 500 mg PO TID PRN PRN Reason: Heartburn Docusate Sodium (Colace) 100 mg PO BID [facility] Last Admin: 09/05/20 20:27 Dose: 100 mg Documented by: Heparin Sodium/Dextrose (Heparin 25,000 Units In D5w 500 Ml) 25,000 units in 500 mls @ 26 mls/hr IV TITRATE [facility]; Protocol Last Admin: 09/06/20 04:17 Dose: 855 units/hr, 17.1 mls/hr Documented by: Levothyroxine Sodium (Synthroid) 88 mcg PO ACBREAKFAST [facility] Last Admin: 09/06/20 06:32 Dose: Not Given Documented by: Ketotifen Eye Drop * (* Ptom) 1 drop EYEBOTH BID PRN PRN Reason: Itching Ondansetron HCl (Zofran) 4 mg IV Q4H PRN PRN Reason: Nausea/Vomiting Pantoprazole Sodium (Protonix) 40 mg PO BID [facility] Last Admin: 09/05/20 20:27 Dose: 40 mg Documented by: Sertraline HCl (Zoloft) 25 mg PO DAILY [facility] Last Admin: 09/05/20 08:47 Dose: 25 mg Documented by: Triamcinolone Acetonide (Triamcinolone Acetonide 0.1% Crm) 0 gm TOP BID PRN PRN Reason: Itching/rash Warfarin Sodium (Pharmacy To Dose - Warfarin) 1 dose .XX ASDIRECTED PRN PRN Reason: RX TO DOSE WARFARIN Warfarin Sodium (Coumadin) 4 mg PO QPM [facility] Last Admin: 09/05/20 17:33 Dose: 4 mg Documented by: Discontinued Medications Heparin Sodium (Porcine) (Heparin Sodium) 5,000 units IVPUSH .BOLUS ONE Stop: 09/02/20 21:07 Last Admin: 09/02/20 21:24 Dose: 5,000 units Documented by: Heparin Sodium (Porcine) (Heparin Sodium) 1,500 units IVPUSH .BOLUS ONE Stop: 09/04/20 06:06 Last Admin: 09/04/20 06:23 Dose: 1,500 units Documented by: Magnesium Hydroxide (Milk Of Magnesia) 30 ml PO ONETIME ONE Stop: 09/04/20 09:08 Last Admin: 09/04/20 09:21 Dose: 30 ml Documented by: Triamcinolone Acetonide (Oralone 0.1% Dental Paste) 0 gm DENT BID PRN PRN Reason: Itching - Exam Quality Assessment: Supplemental Oxygen (2L), DVT Prophylaxis General: Alert, Oriented, Cooperative, No Acute Distress HEENT: Pupils Equal, Pupils Reactive, Mucous Membr. Moist/[place] Neck: Supple, Trachea Midline Lungs: Clear to Auscultation, Normal Respiratory Effort Cardiovascular: Regular Rate, Regular Rhythm GI/Abdominal Exam: Normal Bowel Sounds, Soft, Non-Tender, No Distention, No Abnormal Bruit (Female) Exam: Deferred Back Exam: Normal Inspection, Full Range of Motion Extremities: Pedal Edema (Left leg ), Leg Pain (left ), Limited Range of Motion (2/2 pain ) Peripheral Pulses: 1+: Dorsalis Pedis (L), Dorsalis Pedis (R), 2+: Radial (L), Radial (R) Skin: Warm, Dry, Intact Neurological: No New Focal Deficit Psy/Mental Status: Alert Sepsis Event Note - Evaluation Sepsis Screening Result: No Definite Risk - Focused Exam Vital Signs: Vital Signs Temp Pulse Resp BP Pulse Ox 09/06/20 04:14 98.6 F 84 16 130/45 L 92 L 09/06/20 00:04 97.9 F 82 20 145/58 H 90 L 09/05/20 19:56 98.4 F 76 20 123/55 L 93 L - Problem List & Annotations (1) DVT (deep venous thrombosis) SNOMED Code(s): 050387110 Code(s): I82.409 - ACUTE EMBOLISM AND THOMBOS UNSP DEEP VN UNSP LOWER EXTREMITY Status: Acute Priority: High Current Visit: Yes Qualifiers: DVT location: lower extremity Affected thrombotic vein of extremity: popliteal Chronicity: acute Laterality: left Qualified Code(s): I82.432 - Acute embolism and thrombosis of left popliteal vein (2) History of COVID-19 SNOMED Code(s): 773086352124394440, 522698561164742349 Code(s): Z86.16 - PERSONAL HISTORY OF COVID-19 Status: Chronic Priority: Medium Current Visit: Yes (3) History of GI bleed SNOMED Code(s): 539168525 Code(s): Z87.19 - PERSONAL HISTORY OF OTHER DISEASES OF THE DIGESTIVE SYSTEM Status: Chronic Priority: Medium Current Visit: Yes - Problem List Review Problem List Initiated/Reviewed/Updated: Yes - My Orders Last 24 Hours: My Active Orders 09/05/20 10:51 Consult to Occupational Therapy [OT Evaluation and Treatment] [CONS] Routine PT Evaluation and Treatment [CONS] Routine 09/05/20 11:45 Pharmacy to Dose - Warfarin 1 dose .XX ASDIRECTED PRN 09/05/20 18:00 Warfarin [Coumadin] 4 mg PO QPM 09/07/20 05:11 INR,PT,PROTHROMBIN TIME [[facility]] AM 09/08/20 05:11 INR,PT,PROTHROMBIN TIME [[facility]AG] AM 09/09/20 05:11 INR,PT,PROTHROMBIN TIME [COAG] AM 09/10/20 05:11 INR,PT,PROTHROMBIN TIME [COAG] AM 09/11/20 05:11 INR,PT,PROTHROMBIN TIME [COAG] AM 09/12/20 05:11 INR,PT,PROTHROMBIN TIME [COAG] AM 09/13/20 05:11 INR,PT,PROTHROMBIN TIME [COAG] AM 09/14/20 05:11 INR,PT,PROTHROMBIN TIME [COAG] AM - Plan Plan:: Assessment 80-year-old female with history of recent COVID-19 infection with blood requiring GI bleed 1 month ago was admitted with an acute DVT to the left lower extremity. 09/03/2020 DVT of the distal superficial femoral and popliteal veins, left History of GI bleed in July while hospitalized with Covid * Started on heparin drip in the emergency department * Hemoglobin 9.8 on admission Severe protein malnutrition versus nephrotic syndrome * Albumin 2.0 * No urine available for protein at this time * Many people after COVID-19 infection have low albumin secondary to poor appetite and protein malnutrition. This is likely the cause of the moderate to severe hypoalbuminemia. No one is available to ask how her appetite has be en. This is a bad sign for increased complications. Plan * Admit to floor for IV heparin * Treat with heparin for 48 hours then reevaluate for oral anticoagulation if no bleeding occurs. * Follow hemoglobin closely * Get urine for protein * Dietary consult * CODE STATUS full code * VTE prophylaxis with heparin drip 09/04/2020 80-year-old female with distal superficial femoral and popliteal vein DVT being treated with heparin drip. Patient has had not had any hematochezia or melena. Hemoglobin is 9.4 today. Barely down from 9.8. CBC scheduled for the morning. Patient continues on 2 L nasal cannula. Albumin did decrease to 1.7. Urine protein creatinine ratio was negative ruling out nephrotic syndrome. This is likely secondary to severe protein malnutrition. Plan: Consult Dr. Mars to discuss switching from heparin to oral anticoagulation. Dietary consult for hypoalbuminemia. Continue following hemoglobin in the morning and plan discharge pending Dr. Mars's suggestion. 09/04/2020 80-year-old female with history of Covid infection and GI bleed who was admitted due to DVT within the superficial femoral and popliteal veins. She continues on a heparin drip and there are no signs of active bleeding. Hemoglobin today is up to 9.9. She continues to require oxygen and is on 3 L today, which she says is chronic for her since her Covid infection. She continues to be quite weak and we will add PT and OT to evaluate her. Attempted to contact Dr. Mars, the patient's primary care provider without success. We will therefore start patient on warfarin given her recent GI bleed history and concerns over future bleeding utilizing Eliquis or Xarelto. Patient will therefore need to be hospitalized until she is therapeutic. Will monitor INR along with CBC. We will continue to monitor for signs of acute GI bleed. We will continue heparin drip for bridging until warfarin is therapeutic. Dietary consult today. 09/05/2020 Seven 10-year-old female with left distal superficial femoral and popliteal vein DVT currently on a heparin drip while transitioning to Coumadin. Patient has a history of Covid infection and GI bleed within the past month to month and a half. Continues to do well with no signs of any bleeding. No CBC was drawn today. She remains weak and will do to work with PT and OT. She is on 2 L of oxygen chronically. INR today is 0.02. We will continue the heparin drip with dosing per protocol and recheck INR tomorrow. Pharmacy is dosing warfarin. Patient will remain hospitalized until INR therapeutic. <Elvis Goodman - Last Filed: 09/06/20 12:38> - Patient Data Vitals - Most Recent: Last Vital Signs Temp 36.7 C 09/06/20 11:53 Pulse 86 09/06/20 11:53 Resp 22 H 09/06/20 11:53 BP 114/65 09/06/20 11:53 Pulse Ox 92 L 09/06/20 11:53 I&O - Last 24 Hours: Intake & Output 09/05/20 09/06/20 09/06/20 22:59 06:59 14:59 Intake Total 1232 594 360 Output Total 400 775 Balance 832 -181 360 Lab Results Last 24 Hours: Laboratory Results - last 24 hr 09/05/20 09/06/20 09/06/20 Range/Units 17:30 05:53 05:53 PT 10.9 (9.7-12.0) SECONDS INR 1.02 APTT 58.5 H 53.7 H (21.7-31.4) SECONDS Med Orders - Current: Current Medications Acetaminophen (Tylenol) 650 mg PO Q4H PRN PRN Reason: Pain (Mild 1-3)/fever Benzonatate (Tessalon Perles) 100 mg PO QID PRN PRN Reason: Cough Last Admin: 09/05/20 08:46 Dose: 100 mg Documented by: Calcium Carbonate/Glycine (Tums) 500 mg PO TID PRN PRN Reason: Heartburn Docusate Sodium (Colace) 100 mg PO BID [facility] Last Admin: 09/06/20 08:44 Dose: 100 mg Documented by: Heparin Sodium/Dextrose (Heparin 25,000 Units In D5w 500 Ml) 25,000 units in 500 mls @ 26 mls/hr IV TITRATE [facility]; Protocol Last Admin: 09/06/20 04:17 Dose: 855 units/hr, 17.1 mls/hr Documented by: Levothyroxine Sodium (Synthroid) 88 mcg PO ACBREAKFAST [facility] Last Admin: 09/06/20 06:32 Dose: Not Given Documented by: Ketotifen Eye Drop * (* Ptom) 1 drop EYEBOTH BID PRN PRN Reason: Itching Ondansetron HCl (Zofran) 4 mg IV Q4H PRN PRN Reason: Nausea/Vomiting Pantoprazole Sodium (Protonix) 40 mg PO BID [facility] Last Admin: 09/06/20 08:44 Dose: 40 mg Documented by: Sertraline HCl (Zoloft) 25 mg PO DAILY [facility] Last Admin: 09/06/20 08:44 Dose: 25 mg Documented by: Triamcinolone Acetonide (Triamcinolone Acetonide 0.1% Crm) 0 gm TOP BID PRN PRN Reason: Itching/rash Warfarin Sodium (Pharmacy To Dose - Warfarin) 1 dose .XX ASDIRECTED PRN PRN Reason: RX TO DOSE WARFARIN Warfarin Sodium (Coumadin) 4 mg PO QPM [facility] Last Admin: 09/05/20 17:33 Dose: 4 mg Documented by: Discontinued Medications Heparin Sodium (Porcine) (Heparin Sodium) 5,000 units IVPUSH .BOLUS ONE Stop: 09/02/20 21:07 Last Admin: 09/02/20 21:24 Dose: 5,000 units Documented by: Heparin Sodium (Porcine) (Heparin Sodium) 1,500 units IVPUSH .BOLUS ONE Stop: 09/04/20 06:06 Last Admin: 09/04/20 06:23 Dose: 1,500 units Documented by: Magnesium Hydroxide (Milk Of Magnesia) 30 ml PO ONETIME ONE Stop: 09/04/20 09:08 Last Admin: 09/04/20 09:21 Dose: 30 ml Documented by: Triamcinolone Acetonide (Oralone 0.1% Dental Paste) 0 gm DENT BID PRN PRN Reason: Itching Sepsis Event Note - Focused Exam Vital Signs: Vital Signs Temp Pulse Resp BP Pulse Ox 09/06/20 11:53 36.7 C 86 22 H 114/65 92 L 09/06/20 07:44 36.7 C 78 22 H 124/71 94 L 09/06/20 04:14 37.0 C 84 16 130/45 L 92 L - My Orders Last 24 Hours: My Active Orders 09/07/20 06:00 aPTT [PTT,PARTIAL THROMBOPLSTIN TIME] [[facility]] Routine - Plan Plan:: I have seen and examined the patient independently of Derrick Ohara PA-C. I have reviewed the orders and agree with the plan of care as outlined by him. I have discussed the case with him. Please see orders.
[2020-09-06] MEDS: Sertraline 25 MG Tab PO SCH (08:44)
[2020-09-06] MEDS: Pantoprazole 40 MG Tab.CR PO SCH ×2 (08:44→21:19)
[2020-09-06] MEDS: Docusate Sodium 100 MG Cap PO SCH ×2 (08:44→21:20)
[2020-09-06] MEDS: Warfarin 4 MG Tab PO SCH (17:08)
[2020-09-07] MEDS: Levothyroxine 88 MCG Tab PO SCH (05:00)
[2020-09-07] MEDS ORDERED: Heparin Sodium 5,000 Units/ML Vial IVPUSH ONE (05:36)
--- NOTE | 2020-09-07 07:11 | PCM.PN ---
<Derrick Ohara - Last Filed: 09/07/20 10:39> - General Info Date of Service: 09/07/20 Admission Dx/Problem (Free Text): Admission Diagnosis/Problem Admission Diagnosis/Problem DVT, Deep venous thrombosis of lower extremity Subjective Update: In to see Yessi. She reports she feels about the same as before. Continues to have minor pain in her left leg with palpitation. Good pulses. No nursing or patient concerns. Continue current treatment plan. Functional Status: Reports: Pain Controlled, Tolerating Diet, Ambulating, Urinating. Denies: New Symptoms - Review of Systems General: Reports: Weakness (chronic 2/2 covid ). Denies: Fever, Fatigue, Malaise, Chills HEENT: Reports: No Symptoms. Denies: Headaches, Sore Throat Pulmonary: Reports: Shortness of Breath (chronic - at baseline ). Denies: Cough, Sputum Cardiovascular: Reports: No Symptoms, Dyspnea on Exertion (chronic - at baseline ). Denies: Chest Pain, Palpitations Gastrointestinal: Reports: No Symptoms. Denies: Abdominal Pain, Constipation, Diarrhea, Nausea, Vomiting Genitourinary: Reports: No Symptoms. Denies: Pain Musculoskeletal: Reports: Leg Pain (left leg - mild) Skin: Reports: No Symptoms Neurological: Reports: Pre-Existing Deficit (weakness/difficulty walking 2/2 covid ), Difficulty Walking (chronic ), Gait Disturbance (chroinc ). Denies: Confusion Psychiatric: Reports: No Symptoms - Patient Data Vitals - Most Recent: Last Vital Signs Temp 97.5 F 09/07/20 03:56 Pulse 80 09/07/20 03:56 Resp 16 09/07/20 03:56 BP 116/54 L 09/07/20 03:56 Pulse Ox 93 L 09/07/20 03:56 Weight - Most Recent: 84.731 kg I&O - Last 24 Hours: Intake & Output 09/06/20 09/07/20 09/07/20 22:59 06:59 14:59 Intake Total 997 710 Output Total 2 Balance 995 710 Lab Results Last 24 Hours: Laboratory Results - last 24 hr 09/07/20 09/07/20 Range/Units 04:52 04:52 PT 11.1 (9.7-12.0) SECONDS INR 1.04 APTT 46.4 H (21.7-31.4) SECONDS Med Orders - Current: Current Medications Acetaminophen (Tylenol) 650 mg PO Q4H PRN PRN Reason: Pain (Mild 1-3)/fever Benzonatate (Tessalon Perles) 100 mg PO QID PRN PRN Reason: Cough Last Admin: 09/05/20 08:46 Dose: 100 mg Documented by: Calcium Carbonate/Glycine (Tums) 500 mg PO TID PRN PRN Reason: Heartburn Docusate Sodium (Colace) 100 mg PO BID [facility] Last Admin: 09/06/20 21:20 Dose: 100 mg Documented by: Heparin Sodium/Dextrose (Heparin 25,000 Units In D5w 500 Ml) 25,000 units in 500 mls @ 26 mls/hr IV TITRATE [facility]; Protocol Last Titration: 09/07/20 06:12 Dose: 1,033 units/hr, 20.66 mls/hr Documented by: Levothyroxine Sodium (Synthroid) 88 mcg PO ACBREAKFAST [facility] Last Admin: 09/07/20 05:00 Dose: 88 mcg Documented by: Ketotifen Eye Drop * (* Ptom) 1 drop EYEBOTH BID PRN PRN Reason: Itching Ondansetron HCl (Zofran) 4 mg IV Q4H PRN PRN Reason: Nausea/Vomiting Pantoprazole Sodium (Protonix) 40 mg PO BID [facility] Last Admin: 09/06/20 21:19 Dose: 40 mg Documented by: Sertraline HCl (Zoloft) 25 mg PO DAILY [facility] Last Admin: 09/06/20 08:44 Dose: 25 mg Documented by: Triamcinolone Acetonide (Triamcinolone Acetonide 0.1% Crm) 0 gm TOP BID PRN PRN Reason: Itching/rash Warfarin Sodium (Pharmacy To Dose - Warfarin) 1 dose .XX ASDIRECTED PRN PRN Reason: RX TO DOSE WARFARIN Warfarin Sodium (Coumadin) 4 mg PO QPM [facility] Last Admin: 09/06/20 17:08 Dose: 4 mg Documented by: Discontinued Medications Heparin Sodium (Porcine) (Heparin Sodium) 5,000 units IVPUSH .BOLUS ONE Stop: 09/02/20 21:07 Last Admin: 09/02/20 21:24 Dose: 5,000 units Documented by: Heparin Sodium (Porcine) (Heparin Sodium) 1,500 units IVPUSH .BOLUS ONE Stop: 09/04/20 06:06 Last Admin: 09/04/20 06:23 Dose: 1,500 units Documented by: Heparin Sodium (Porcine) (Heparin Sodium) 1,500 units IVPUSH .BOLUS ONE Stop: 09/07/20 05:37 Last Admin: 09/07/20 06:11 Dose: 1,500 units Documented by: Magnesium Hydroxide (Milk Of Magnesia) 30 ml PO ONETIME ONE Stop: 09/04/20 09:08 Last Admin: 09/04/20 09:21 Dose: 30 ml Documented by: Triamcinolone Acetonide (Oralone 0.1% Dental Paste) 0 gm DENT BID PRN PRN Reason: Itching - Exam Quality Assessment: Supplemental Oxygen (2L), DVT Prophylaxis. No: Urine Catheter General: Alert, Oriented, Cooperative, No Acute Distress HEENT: Pupils Equal, Pupils Reactive, Mucous Membr. Moist/[place] Neck: Supple Lungs: Clear to Auscultation, Normal Respiratory Effort Cardiovascular: Regular Rate, Regular Rhythm GI/Abdominal Exam: Normal Bowel Sounds, Soft, Non-Tender, No Distention (Female) Exam: Deferred Back Exam: Normal Inspection, Full Range of Motion Extremities: Normal Inspection, Normal Range of Motion, No Pedal Edema, Normal Capillary Refill, Leg Pain (left calf with palpation ) Peripheral Pulses: 3+: Radial (L), Radial (R), Dorsalis Pedis (L), Dorsalis Pedis (R) Skin: Warm, Dry, Intact Neurological: No New Focal Deficit Psy/Mental Status: Alert, Normal Affect, Normal Mood Sepsis Event Note - Evaluation Sepsis Screening Result: No Definite Risk - Focused Exam Vital Signs: Vital Signs Temp Pulse Resp BP Pulse Ox 09/07/20 03:56 97.5 F 80 16 116/54 L 93 L 09/06/20 23:45 98.4 F 83 18 125/44 L 89 L 09/06/20 20:00 97.5 F 84 28 H 130/58 L 93 L - Problem List & Annotations (1) DVT (deep venous thrombosis) SNOMED Code(s): 044745941 Code(s): I82.409 - ACUTE EMBOLISM AND THOMBOS UNSP DEEP VN UNSP LOWER EXTREMITY Status: Acute Priority: High Current Visit: Yes Qualifiers: DVT location: lower extremity Affected thrombotic vein of extremity: popliteal Chronicity: acute Laterality: left Qualified Code(s): I82.432 - Acute embolism and thrombosis of left popliteal vein (2) History of COVID-19 SNOMED Code(s): 600562758871310318, 030605226384145097 Code(s): Z86.16 - PERSONAL HISTORY OF COVID-19 Status: Chronic Priority: Medium Current Visit: Yes (3) History of GI bleed SNOMED Code(s): 918789446 Code(s): Z87.19 - PERSONAL HISTORY OF OTHER DISEASES OF THE DIGESTIVE SYSTEM Status: Chronic Priority: Medium Current Visit: Yes (4) Warfarin therapy started SNOMED Code(s): 945397729 Code(s): Z79.01 - GROUP HOME (CURRENT) USE OF ANTICOAGULANTS Status: Acute Priority: High Current Visit: Yes - Problem List Review Problem List Initiated/Reviewed/Updated: Yes - My Orders Last 24 Hours: My Active Orders 09/08/20 05:11 INR,PT,PROTHROMBIN TIME [COAG] AM 09/09/20 05:11 INR,PT,PROTHROMBIN TIME [COAG] AM 09/10/20 05:11 INR,PT,PROTHROMBIN TIME [COAG] AM 09/11/20 05:11 INR,PT,PROTHROMBIN TIME [COAG] AM 09/12/20 05:11 INR,PT,PROTHROMBIN TIME [COAG] AM 09/13/20 05:11 INR,PT,PROTHROMBIN TIME [COAG] AM 09/14/20 05:11 INR,PT,PROTHROMBIN TIME [COAG] AM - Plan Plan:: Assessment 80-year-old female with history of recent COVID-19 infection with blood requiring GI bleed 1 month ago was admitted with an acute DVT to the left lower extremity. 09/03/2020 DVT of the distal superficial femoral and popliteal veins, left History of GI bleed in July while hospitalized with Covid * Started on heparin drip in the emergency department * Hemoglobin 9.8 on admission Severe protein malnutrition versus nephrotic syndrome * Albumin 2.0 * No urine available for protein at this time * Many people after COVID-19 infection have low albumin secondary to poor appetite and protein malnutrition. This is likely the cause of the moderate to severe hypoalbuminemia. No one is available to ask how her appetite has been. This is a bad sign for increased complications. Plan * Admit to floor for IV heparin * Treat with heparin for 48 hours then reevaluate for oral anticoagulation if no bleeding occurs. * Follow hemoglobin closely * Get urine for protein * Dietary consult * CODE STATUS full code * VTE prophylaxis with heparin drip 09/04/2020 80-year-old female with distal superficial femoral and popliteal vein DVT being treated with heparin drip. Patient has had not had any hematochezia or melena. Hemoglobin is 9.4 today. Barely down from 9.8. CBC scheduled for the morning. Patient continues on 2 L nasal cannula. Albumin did decrease to 1.7. Urine protein creatinine ratio was negative ruling out nephrotic syndrome. This is likely secondary to severe protein malnutrition. Plan: Consult Dr. Mars to discuss switching from heparin to oral anticoagulation. Dietary consult for hypoalbuminemia. Continue following hemoglobin in the morning and plan discharge pending Dr. Mars's suggestion. 09/05/2020 80-year-old female with history of Covid infection and GI bleed who was admitted due to DVT within the superficial femoral and popliteal veins. She continues on a heparin drip and there are no signs of active bleeding. Hemoglobin today is up to 9.9. She continues to require oxygen and is on 3 L today, which she says is chronic for her since her Covid infection. She continues to be quite weak and we will add PT and OT to evaluate her. Attempted to contact Dr. Mars, the patient's primary care provider without success. We will therefore start patient on warfarin given her recent GI bleed history and concerns over future bleeding utilizing Eliquis or Xarelto. Patient will therefore need to be hospitalized until she is therapeutic. Will monitor INR along with CBC. We will continue to monitor for signs of acute GI bleed. We will continue heparin drip for bridging until warfarin is therapeutic. Dietary consult today. 09/06/2020 80-year-old female with left distal superficial femoral and popliteal vein DVT currently on a heparin drip while transitioning to Coumadin. Patient has a hi story of Covid infection and GI bleed within the past month to month and a half. Continues to do well with no signs of any bleeding. No CBC was drawn today. She remains weak and will do to work with PT and OT. She is on 2 L of oxygen chronically. INR today is 1.02. We will continue the heparin drip with dosing per protocol and recheck INR tomorrow. Pharmacy is dosing warfarin. Patient will remain hospitalized until INR therapeutic. 09/07/2020 This is a 80-year-old female who remains hospitalized due to left distal superficial femoral and popliteal vein DVT. She has been treated with a heparin drip and is starting Coumadin treatment, which remains subtherapeutic. INR is currently 1.04. Pharmacy is dosing warfarin. Patient has good pulses in all extremities. Reports pain is minimal with palpation. Patient recently suffered from COVID-19 infection and remains on oxygen 2 L, which she reports she is at her baseline for shortness of breath. We will continue heparin drip per protocol and recheck INR tomorrow. Continue to monitor for signs of bleeding with nothing noted. We will recheck labs tomorrow including CBC, CMP, magnesium, and INR. Hopeful for discharge in next 1 to 2 days pending INR reaching therapeutic level. <Elvis Goodman - Last Filed: 09/07/20 11:49> - Patient Data Vitals - Most Recent: Last Vital Signs Temp 36.6 C 09/07/20 11:29 Pulse 86 09/07/20 11:29 Resp 28 H 09/07/20 11:29 BP 111/48 L 09/07/20 11:29 Pulse Ox 95 09/07/20 11:29 I&O - Last 24 Hours: Intake & Output 09/06/20 09/07/20 09/07/20 22:59 06:59 14:59 Intake Total 1267 710 240 Output Total 2 Balance 1265 710 240 Lab Results Last 24 Hours: Laboratory Results - last 24 hr 09/07/20 09/07/20 Range/Units 04:52 04:52 PT 11.1 (9.7-12.0) SECONDS INR 1.04 APTT 46.4 H (21.7-31.4) SECONDS Med Orders - Current: Current Medications Acetaminophen (Tylenol) 650 mg PO Q4H PRN PRN Reason: Pain (Mild 1-3)/fever Benzonatate (Tessalon Perles) 100 mg PO QID PRN PRN Reason: Cough Last Admin: 09/05/20 08:46 Dose: 100 mg Documented by: Calcium Carbonate/Glycine (Tums) 500 mg PO TID PRN PRN Reason: Heartburn Docusate Sodium (Colace) 100 mg PO BID [facility] Last Admin: 09/07/20 08:08 Dose: 100 mg Documented by: Heparin Sodium/Dextrose (Heparin 25,000 Units In D5w 500 Ml) 25,000 units in 500 mls @ 26 mls/hr IV TITRATE [facility]; Protocol Last Admin: 09/07/20 08:04 Dose: 1,033 units/hr, 20.66 mls/hr Documented by: Levothyroxine Sodium (Synthroid) 88 mcg PO ACBREAKFAST [facility] Last Admin: 09/07/20 05:00 Dose: 88 mcg Documented by: Ketotifen Eye Drop * (* Ptom) 1 drop EYEBOTH BID PRN PRN Reason: Itching Ondansetron HCl (Zofran) 4 mg IV Q4H PRN PRN Reason: Nausea/Vomiting Pantoprazole Sodium (Protonix) 40 mg PO BID [facility] Last Admin: 09/07/20 08:08 Dose: 40 mg Documented by: Sertraline HCl (Zoloft) 25 mg PO DAILY [facility] Last Admin: 09/07/20 08:08 Dose: 25 mg Documented by: Triamcinolone Acetonide (Triamcinolone Acetonide 0.1% Crm) 0 gm TOP BID PRN PRN Reason: Itching/rash Warfarin Sodium (Pharmacy To Dose - Warfarin) 1 dose .XX ASDIRECTED PRN PRN Reason: RX TO DOSE WARFARIN Warfarin Sodium (Coumadin) 6 mg PO QPM [facility] Stop: 09/07/20 18:01 Discontinued Medications Heparin Sodium (Porcine) (Heparin Sodium) 5,000 units IVPUSH .BOLUS ONE Stop: 09/02/20 21:07 Last Admin: 09/02/20 21:24 Dose: 5,000 units Documented by: Heparin Sodium (Porcine) (Heparin Sodium) 1,500 units IVPUSH .BOLUS ONE Stop: 09/04/20 06:06 Last Admin: 09/04/20 06:23 Dose: 1,500 units Documented by: Heparin Sodium (Porcine) (Heparin Sodium) 1,500 units IVPUSH .BOLUS ONE Stop: 09/07/20 05:37 Last Admin: 09/07/20 06:11 Dose: 1,500 units Documented by: Magnesium Hydroxide (Milk Of Magnesia) 30 ml PO ONETIME ONE Stop: 09/04/20 09:08 Last Admin: 09/04/20 09:21 Dose: 30 ml Documented by: Triamcinolone Acetonide (Oralone 0.1% Dental Paste) 0 gm DENT BID PRN PRN Reason: Itching Warfarin Sodium (Coumadin) 4 mg PO QPM [facility] Last Admin: 09/06/20 17:08 Dose: 4 mg Documented by: Sepsis Event Note - Focused Exam Vital Signs: Vital Signs Temp Pulse Resp BP Pulse Ox 09/07/20 11:29 36.6 C 86 28 H 111/48 L 95 09/07/20 07:19 36.8 C 84 24 H 134/43 L 93 L 09/07/20 03:56 36.4 C 80 16 116/54 L 93 L - My Orders Last 24 Hours: My Active Orders 09/07/20 11:35 aPTT [PTT,PARTIAL THROMBOPLSTIN TIME] [COAG] Routine - Plan Plan:: I have seen and examined the patient independently of Derrick Ohara PA-C. I have reviewed the orders and agree with the plan of care as outlined by him. I have discussed the case with him. Please see orders.
[2020-09-07] MEDS: Heparin Sodium/D5W 25,000 UNITS/500 ML BAG IV SCH (08:04)
[2020-09-07] MEDS: Sertraline 25 MG Tab PO SCH (08:08)
[2020-09-07] MEDS: Docusate Sodium 100 MG Cap PO SCH ×2 (08:08→19:51)
[2020-09-07] MEDS: Pantoprazole 40 MG Tab.CR PO SCH ×2 (08:08→19:51)
[2020-09-07] MEDS ORDERED: Warfarin 3 MG Tab PO SCH ×2 (18:00)
[2020-09-08] MEDS: Pantoprazole 40 MG Tab.CR PO SCH ×2 (02:25→08:04)
[2020-09-08] MEDS: Docusate Sodium 100 MG Cap PO SCH ×2 (02:25→08:04)
[2020-09-08] MEDS: Levothyroxine 88 MCG Tab PO SCH (06:27)
--- NOTE | 2020-09-08 07:28 | PCM.PN ---
- General Info Date of Service: 09/08/20 Admission Dx/Problem (Free Text): Admission Diagnosis/Problem Admission Diagnosis/Problem DVT, Deep venous thrombosis of lower extremity - Patient Data Vitals - Most Recent: Last Vital Signs Temp 97.2 F 09/08/20 03:24 Pulse 83 09/08/20 03:24 Resp 36 H 09/08/20 03:24 BP 113/93 H 09/08/20 03:24 Pulse Ox 91 L 09/08/20 03:24 Weight - Most Recent: 184 lb 9.6 oz I&O - Last 24 Hours: Intake & Output 09/07/20 09/08/20 09/08/20 22:59 06:59 14:59 Intake Total 1654 832 Output Total 875 600 Balance 779 232 Lab Results Last 24 Hours: Laboratory Results - last 24 hr 09/07/20 09/07/20 09/08/20 Range/Units 11:35 17:34 05:21 WBC (3.98-10.04) K/mm3 RBC (3.98-5.22) M/mm3 Hgb (11.2-15.7) gm/dl Hct (34.1-44.9) % MCV (79.4-94.8) fl MCH (25.6-32.2) pg MCHC (32.2-35.5) g/dl RDW Std Deviation (36.4-46.3) fL Plt Count (182-369) K/mm3 MPV (9.4-12.3) fl Neut % (Auto) (34.0-71.1) % Lymph % (Auto) (19.3-51.7) % [place] % (Auto) (4.7-12.5) % Eos % (Auto) (0.7-5.8) Baso % (Auto) (0.1-1.2) % Neut # (Auto) (1.56-6.13) K/mm3 Lymph # (Auto) (1.18-3.74) K/mm3 [place] # (Auto) (0.24-0.36) K/mm3 Eos # (Auto) (0.04-0.36) K/mm3 Baso # (Auto) (0.01-0.08) K/mm3 Manual Slide Review PT 11.4 (9.7-12.0) SECONDS INR 1.07 APTT 65.4 H 56.4 H 55.7 H (21.7-31.4) SECONDS Sodium (136-145) mEq/L Potassium (3.5-5.1) mEq/L Chloride (98-107) mEq/L Carbon Dioxide (21-32) mEq/L Anion Gap (5-15) BUN (7-18) mg/dL Creatinine (0.55-1.02) mg/dL Est Cr Clr Drug Dosing mL/min Estimated GFR (MDRD) (>60) mL/min BUN/Creatinine Ratio (14-18) Glucose (83-115) mg/dL Calcium (8.5-10.1) mg/dL Magnesium (1.8-2.4) mg/dl Total Bilirubin (0.2-1.0) mg/dL AST (15-37) U/L ALT (14-59) U/L Alkaline Phosphatase (46-116) U/L Total Protein (6.4-8.2) g/dl Albumin (3.4-5.0) g/dl Globulin gm/dL Albumin/Globulin Ratio (1-2) 09/08/20 09/08/20 Range/Units 05:21 05:21 WBC 8.38 (3.98-10.04) K/mm3 RBC 3.64 L (3.98-5.22) M/mm3 Hgb 10.5 L (11.2-15.7) gm/dl Hct 35.1 (34.1-44.9) % MCV 96.4 H (79.4-94.8) fl MCH 28.8 (25.6-32.2) pg MCHC 29.9 L (32.2-35.5) g/dl RDW Std Deviation 58.7 H (36.4-46.3) fL Plt Count 261 (182-369) K/mm3 MPV 9.3 L (9.4-12.3) fl Neut % (Auto) 54.8 (34.0-71.1) % Lymph % (Auto) 21.1 (19.3-51.7) % [place] % (Auto) 13.5 H (4.7-12.5) % Eos % (Auto) 1.0 (0.7-5.8) Baso % (Auto) 1.1 (0.1-1.2) % Neut # (Auto) 4.60 (1.56-6.13) K/mm3 Lymph # (Auto) 1.77 (1.18-3.74) K/mm3 [place] # (Auto) 1.13 H (0.24-0.36) K/mm3 Eos # (Auto) 0.08 (0.04-0.36) K/mm3 Baso # (Auto) 0.09 H (0.01-0.08) K/mm3 Manual Slide Review Abnormal smear PT (9.7-12.0) SECONDS INR APTT (21.7-31.4) SECONDS Sodium 144 (136-145) mEq/L Potassium 4.4 (3.5-5.1) mEq/L Chloride 106 (98-107) mEq/L Carbon Dioxide 29 (21-32) mEq/L Anion Gap 13.4 (5-15) BUN 18 (7-18) mg/dL Creatinine 0.6 (0.55-1.02) mg/dL Est Cr Clr Drug Dosing 65.65 mL/min Estimated GFR (MDRD) > 60 (>60) mL/min BUN/Creatinine Ratio 30.0 H (14-18) Glucose 111 (83-115) mg/dL Calcium 8.7 (8.5-10.1) mg/dL Magnesium 2.4 (1.8-2.4) mg/dl Total Bilirubin 0.2 (0.2-1.0) mg/dL AST 36 (15-37) U/L ALT 47 (14-59) U/L Alkaline Phosphatase 71 (46-116) U/L Total Protein 5.9 L (6.4-8.2) g/dl Albumin 2.2 L (3.4-5.0) g/dl Globulin 3.7 gm/dL Albumin/Globulin Ratio 0.6 L (1-2) Med Orders - Current: Current Medications Acetaminophen (Tylenol) 650 mg PO Q4H PRN PRN Reason: Pain (Mild 1-3)/fever Benzonatate (Tessalon Perles) 100 mg PO QID PRN PRN Reason: Cough Last Admin: 09/05/20 08:46 Dose: 100 mg Documented by: Calcium Carbonate/Glycine (Tums) 500 mg PO TID PRN PRN Reason: Heartburn Docusate Sodium (Colace) 100 mg PO BID [facility] Last Admin: 09/08/20 02:25 Dose: Not Given Documented by: Heparin Sodium/Dextrose (Heparin 25,000 Units In D5w 500 Ml) 25,000 units in 500 mls @ 26 mls/hr IV TITRATE [facility]; Protocol Last Admin: 09/07/20 08:04 Dose: 1,033 units/hr, 20.66 mls/hr Documented by: Levothyroxine Sodium (Synthroid) 88 mcg PO ACBREAKFAST [facility] Last Admin: 09/08/20 06:27 Dose: 88 mcg Documented by: Ketotifen Eye Drop * (* Ptom) 1 drop EYEBOTH BID PRN PRN Reason: Itching Ondansetron HCl (Zofran) 4 mg IV Q4H PRN PRN Reason: Nausea/Vomiting Pantoprazole Sodium (Protonix) 40 mg PO BID [facility] Last Admin: 09/08/20 02:25 Dose: Not Given Documented by: Sertraline HCl (Zoloft) 25 mg PO DAILY [facility] Last Admin: 09/07/20 08:08 Dose: 25 mg Documented by: Triamcinolone Acetonide (Triamcinolone Acetonide 0.1% Crm) 0 gm TOP BID PRN PRN Reason: Itching/rash Warfarin Sodium (Pharmacy To Dose - Warfarin) 1 dose .XX ASDIRECTED PRN PRN Reason: RX TO DOSE WARFARIN Discontinued Medications Heparin Sodium (Porcine) (Heparin Sodium) 5,000 units IVPUSH .BOLUS ONE Stop: 09/02/20 21:07 Last Admin: 09/02/20 21:24 Dose: 5,000 units Documented by: Heparin Sodium (Porcine) (Heparin Sodium) 1,500 units IVPUSH .BOLUS ONE Stop: 09/04/20 06:06 Last Admin: 09/04/20 06:23 Dose: 1,500 units Documented by: Heparin Sodium (Porcine) (Heparin Sodium) 1,500 units IVPUSH .BOLUS ONE Stop: 09/07/20 05:37 Last Admin: 09/07/20 06:11 Dose: 1,500 units Documented by: Magnesium Hydroxide (Milk Of Magnesia) 30 ml PO ONETIME ONE Stop: 09/04/20 09:08 Last Admin: 09/04/20 09:21 Dose: 30 ml Documented by: Triamcinolone Acetonide (Oralone 0.1% Dental Paste) 0 gm DENT BID PRN PRN Reason: Itching Warfarin Sodium (Coumadin) 4 mg PO QPM [facility] Last Admin: 09/06/20 17:08 Dose: 4 mg Documented by: Warfarin Sodium (Coumadin) 6 mg PO QPM [facility] Stop: 09/07/20 18:01 Warfarin Sodium (Coumadin) 6 mg PO QPM [facility] Stop: 09/07/20 18:01 Last Admin: 09/07/20 17:49 Dose: 6 mg Documented by: Sepsis Event Note - Evaluation Sepsis Screening Result: No Definite Risk - Focused Exam Vital Signs: Vital Signs Temp Pulse Resp BP Pulse Ox 09/08/20 03:24 97.2 F 83 36 H 113/93 H 91 L 09/07/20 19:49 98.4 F 85 40 H 113/49 L 94 L - Problem List & Annotations (1) DVT (deep venous thrombosis) SNOMED Code(s): 864226403 Code(s): I82.409 - ACUTE EMBOLISM AND THOMBOS UNSP DEEP VN UNSP LOWER EXTREMITY Status: Acute Priority: High Current Visit: Yes Qualifiers: DVT location: lower extremity Affected thrombotic vein of extremity: popliteal Chronicity: acute Laterality: left Qualified Code(s): I82.432 - Acute embolism and thrombosis of left popliteal vein (2) History of COVID-19 SNOMED Code(s): 794113773642440108, 958021569850472909 Code(s): Z86.16 - PERSONAL HISTORY OF COVID-19 Status: Chronic Priority: Medium Current Visit: Yes (3) History of GI bleed SNOMED Code(s): 022269928 Code(s): Z87.19 - PERSONAL HISTORY OF OTHER DISEASES OF THE DIGESTIVE SYSTEM Status: Chronic Priority: Medium Current Visit: Yes (4) Warfarin therapy started SNOMED Code(s): 401331530 Code(s): Z79.01 - CUSTODIAL (CURRENT) USE OF ANTICOAGULANTS Status: Acute Priority: High Current Visit: Yes - My Orders Last 24 Hours: My Active Orders 09/09/20 05:11 INR,PT,PROTHROMBIN TIME [[facility]AG] AM 09/10/20 05:11 INR,PT,PROTHROMBIN TIME [COAG] AM 09/11/20 05:11 INR,PT,PROTHROMBIN TIME [COAG] AM 09/12/20 05:11 INR,PT,PROTHROMBIN TIME [COAG] AM 09/13/20 05:11 INR,PT,PROTHROMBIN TIME [COAG] AM 09/14/20 05:11 INR,PT,PROTHROMBIN TIME [COAG] AM - Plan Plan:: I have seen and examined the patient independently of Derrick Ohara PA-C. I have reviewed the orders and agree with the plan of care as outlined by him. I have discussed the case with him. Please see orders.
[2020-09-08] MEDS: Heparin Sodium/D5W 25,000 UNITS/500 ML BAG IV SCH (08:01)
[2020-09-08] MEDS: Sertraline 25 MG Tab PO SCH (08:04)
[2020-09-08] MEDS ORDERED: Enoxaparin 80 MG/0.8 ML Syringe SUBCUT SCH (12:00)
--- NOTE | 2020-09-08 12:40 | PCM.DCSUM1 ---
<Derrick Ohara - Last Filed: 09/08/20 15:44> Discharge Summary - Hospital Course HPI Initial Comments: 80-year-old female patient of Dr. Mars who was referred to the ER secondary to a DVT within the distal superficial femoral and popliteal veins of the left leg. Patient was admitted last month to [facility] in [place] secondary to COVID-19. During that hospitalization, on August 08, 2020 she had a GI bleed that required transfusion. Because of that, it was felt that she may not be a candidate for Eliquis and she would likely benefit from hospitalization and heparinization, therefore if she started having bleeding it could be quickly reversed. Unfortunately, patient is a very poor historian but appears she did have some moderate left lower leg pain and swelling. Diagnosis: Stroke: No - Discharge Data Discharge Date: 09/08/20 (Admit date: 09/02/20) Discharge Disposition: DC/Tfer to SNF 03 Condition: Good - Referral to Home Health Primary Care Physician: Liu Mars MD - Discharge Diagnosis/Problem(s) (1) DVT (deep venous thrombosis) SNOMED Code(s): 801753008 ICD Code: I82.409 - ACUTE EMBOLISM AND THOMBOS UNSP DEEP VN UNSP LOWER EXTREMITY Status: Acute Priority: High Current Visit: Yes Qualifiers: DVT location: lower extremity Affected thrombotic vein of extremity: popliteal Chronicity: acute Laterality: left Qualified Code(s): I82.432 - Acute embolism and thrombosis of left popliteal vein (2) History of COVID-19 SNOMED Code(s): 185176068052799553, 273145339383986826 ICD Code: Z86.16 - PERSONAL HISTORY OF COVID-19 Status: Chronic Priority: Medium Current Visit: Yes (3) History of GI bleed SNOMED Code(s): 838799518 ICD Code: Z87.19 - PERSONAL HISTORY OF OTHER DISEASES OF THE DIGESTIVE SYSTEM Status: Chronic Priority: Medium Current Visit: Yes (4) Warfarin therapy started SNOMED Code(s): 954294971 ICD Code: Z79.01 - [facility] (CURRENT) USE OF ANTICOAGULANTS Status: Acute Priority: High Current Visit: Yes - Patient Summary/Data Consults: Consultations 09/04/20 22:04 Consult to Dietary [Consult to Machine Sole Leveler] [CONS] Routine 09/05/20 10:51 Consult to Occupational Therapy [OT Evaluation and Treatment] [CONS] Routine PT Evaluation and Treatment [CONS] Routine Labs Pending at D/C: None (INR ordered daily from 09/09/20 to 09/12/20 with results to patients PCP - Dr. Mars) Recommended Follow-up Testing/Procedures: Follow-up with primary care provider within 7-10 days of discharge, sooner if needed. Hospital Course: Yessi is a 80-year-old female who was admitted from our ED on 09/03/2020 with a DVT to the distal superficial femoral and popliteal veins on her left leg. This is complicated by the fact that the patient had a GI bleed noted in July while she was hospitalized with COVID-19. Hemoglobin is 9.8 on admission and this did trend up to 10.5 prior to discharge. She was started on a heparin drip due to her DVT and ultimately warfarin was started as there were concerns by the patient's primary care provider on if the patient would have any GI rebleeding. Plan was to start something that is reversible like warfarin. Unfortunately after 3 doses patient's INR remains 1.07. Pharmacy has been dosing Coumadin and recommends a 6 mg dosing on discharge. Patient should have daily INR checked until she is therapeutic. Target INR is 2.0-3.0. Results of his INR check should be forwarded to the patient's primary care provider, Dr. Mars. On admission patient was noted to have an albumin of 2.0 and there were concerns of nephrotic syndrome versus severe protein malnourished. Dietitian was consulted. Urine protein to creatinine ratio was negative and nephrotic syndrome was ultimately ruled out. She was evaluated by PT and OT who are recommending return to SNF. Patient does reside in [place] at the local [facility]. She was requiring 2 L of oxygen chronically with saturations in the low 90s throughout her stay. As the patient has had multiple subtherapeutic INR's primary care was contacted with plan to discharge on Lovenox bridge and have him monitor the patient's INR. He agreed to this plan. Patient will be discharged on 80 mg twice daily Lovenox. First dose should occur tonight and patient was given a dose this morning. She also be discharged on 6 mg daily warfarin as noted. This should be adjusted according to the patient's INR. She should continue PT/OT at SNF. She was instructed to return the emergency room or contact her primary care provider should symptoms return or worsen. Pulses were good in all 4 extremities and equal upon discharge. - Patient Instructions Diet: Mechanical Soft Activity: As Tolerated Driving: Do Not Drive Showering/Bathing: May Shower Notify Provider of: Fever, Increased Pain, Nausea and/or Vomiting Other/Special Instructions: Follow-up with primary care provider within 7-10 days of discharge, sooner if needed. Monitor for signs of active beeling with introduction of warfarin. This includes bloody or dark stools, etc. Re-check INR daily from 09/09/20 to 09/12/20 with results to patients PCP - Dr. Mars. Continue oxygen as prior - 2L continuous. Continue PT/OT at SNF. Should symptoms return or worsen contact primary care provider or return to the Emergency Department. - Discharge Plan *PRESCRIPTION DRUG MONITORING PROGRAM REVIEWED*: No *COPY OF PRESCRIPTION DRUG MONITORING REPORT IN PATIENT ANGUS: No Prescriptions/Med Rec: Warfarin [Coumadin] 6 mg PO QPM #10 tablet Enoxaparin [Lovenox] 80 mg SUBCUT BID #8 syringe Home Medications: Home Meds Levothyroxine [Synthroid] 88 mcg PO DAILY 04/24/20 [History] Acetaminophen [Non-Aspirin Extra Strength] 500 mg PO BEDTIME PRN 09/02/20 [History] Benzonatate [Tessalon Perle] 100 mg PO QID PRN 09/02/20 [History] Betamethasone Valerate [Valisone 0.1% Crm] 0 gm TOP DAILY PRN 09/02/20 [History] Calcium Carbonate [Tums] 500 mg PO TID PRN 09/02/20 [History] Docusate Sodium 100 mg PO BID 09/02/20 [History] Ketotifen [Ketotifen 0.025% Ophth Soln] 1 drop EYEBOTH BID PRN 09/02/20 [Hi story] Multivitamin [Daily Multiple Vitamin] 1 each PO DAILY 09/02/20 [History] Pantoprazole Sodium 40 mg PO BID 09/02/20 [History] Sertraline [Zoloft] 25 mg PO DAILY 09/02/20 [History] Triamcinolone Acetonide [Triamcinolone Acetonide 0.1% Crm] 1 applic TOP BID PRN 09/05/20 [History] Enoxaparin [Lovenox] 80 mg SUBCUT BID #8 syringe 09/08/20 [Rx] Warfarin [Coumadin] 6 mg PO QPM #10 tablet 09/08/20 [Rx] Oxygen Therapy Mode: Nasal Cannula Oxygen Flow Rate (L/min): 2 Patient Handouts: Bleeding Precautions When on Anticoagulant Therapy, Adult, Warfarin tablets, Deep Vein Thrombosis, Venous Thromboembolism Prevention Referrals: Liu Mars MD [Primary Care Provider] - 09/15/20 1:00 pm (Please check in at 12:30pm.) - Discharge Summary/Plan Comment DC Time >30 min.: Yes (45 mins ) - General Info Date of Service: 09/08/20 Admission Dx/Problem (Free Text: DVT Functional Status: Reports: Pain Controlled, Tolerating Diet, Ambulating, Urinating. Denies: New Symptoms - Review of Systems General: Reports: Weakness (continued but stable ). Denies: Fever, Fatigue, Malaise, Chills HEENT: Reports: No Symptoms. Denies: Headaches, Sore Throat Pulmonary: Reports: Shortness of Breath (baseline ), Cough (baseline ). Denies: Pleuritic Chest Pain, Sputum, Wheezing Cardiovascular: Reports: Dyspnea on Exertion (Baseline ). Denies: Chest Pain, Palpitations, Lightheadedness Gastrointestinal: Reports: No Symptoms. Denies: Abdominal Pain, Constipation, Diarrhea, Nausea, Vomiting Genitourinary: Reports: No Symptoms. Denies: Pain Musculoskeletal: Reports: No Symptoms Skin: Reports: No Symptoms. Denies: Cyanosis Neurological: Reports: Difficulty Walking, Weakness, Gait Disturbance. Denies: Confusion Psychiatric: Reports: No Symptoms - Patient Data Vitals - Most Recent: Last Vital Signs Temp 98.2 F 09/08/20 11:21 Pulse 56 L 09/08/20 11:21 Resp 20 09/08/20 11:21 BP 116/54 L 09/08/20 11:21 Pulse Ox 94 L 09/08/20 11:21 Weight - Most Recent: 83.733 kg I&O - Last 24 hours: Intake & Output 09/07/20 09/08/20 09/08/20 22:59 06:59 14:59 Intake Total 1984 832 360 Output Total 875 600 Balance 1109 232 360 Lab Results - Last 24 hrs: Laboratory Results - last 24 hr 09/07/20 09/08/20 09/08/20 Range/Units 17:34 05:21 05:21 WBC 8.38 (3.98-10.04) K/mm3 RBC 3.64 L (3.98-5.22) M/mm3 Hgb 10.5 L (11.2-15.7) gm/dl Hct 35.1 (34.1-44.9) % MCV 96.4 H (79.4-94.8) fl MCH 28.8 (25.6-32.2) pg MCHC 29.9 L (32.2-35.5) g/dl RDW Std Deviation 58.7 H (36.4-46.3) fL Plt Count 261 (182-369) K/mm3 MPV 9.3 L (9.4-12.3) fl Neut % (Auto) 54.8 (34.0-71.1) % Lymph % (Auto) 21.1 (19.3-51.7) % Payne % (Auto) 13.5 H (4.7-12.5) % Eos % (Auto) 1.0 (0.7-5.8) Baso % (Auto) 1.1 (0.1-1.2) % Neut # (Auto) 4.60 (1.56-6.13) K/mm3 Lymph # (Auto) 1.77 (1.18-3.74) K/mm3 Payne # (Auto) 1.13 H (0.24-0.36) K/mm3 Eos # (Auto) 0.08 (0.04-0.36) K/mm3 Baso # (Auto) 0.09 H (0.01-0.08) K/mm3 Manual Slide Review Abnormal smear PT 11.4 (9.7-12.0) SECONDS INR 1.07 APTT 56.4 H 55.7 H (21.7-31.4) SECONDS Sodium (136-145) mEq/L Potassium (3.5-5.1) mEq/L Chloride (98-107) mEq/L Carbon Dioxide (21-32) mEq/L Anion Gap (5-15) BUN (7-18) mg/dL Creatinine (0.55-1.02) mg/dL Est Cr Clr Drug Dosing mL/min Estimated GFR (MDRD) (>60) mL/min BUN/Creatinine Ratio (14-18) Glucose (83-115) mg/dL Calcium (8.5-10.1) mg/dL Magnesium (1.8-2.4) mg/dl Total Bilirubin (0.2-1.0) mg/dL AST (15-37) U/L ALT (14-59) U/L Alkaline Phosphatase (46-116) U/L Total Protein (6.4-8.2) g/dl Albumin (3.4-5.0) g/dl Globulin gm/dL Albumin/Globulin Ratio (1-2) 09/08/20 Range/Units 05:21 WBC (3.98-10.04) K/mm3 RBC (3.98-5.22) M/mm3 Hgb (11.2-15.7) gm/dl Hct (34.1-44.9) % MCV (79.4-94.8) fl MCH (25.6-32.2) pg MCHC (32.2-35.5) g/dl RDW Std Deviation (36.4-46.3) fL Plt Count (182-369) K/mm3 MPV (9.4-12.3) fl Neut % (Auto) (34.0-71.1) % Lymph % (Auto) (19.3-51.7) % Payne % (Auto) (4.7-12.5) % Eos % (Auto) (0.7-5.8) Baso % (Auto) (0.1-1.2) % Neut # (Auto) (1.56-6.13) K/mm3 Lymph # (Auto) (1.18-3.74) K/mm3 Payne # (Auto) (0.24-0.36) K/mm3 Eos # (Auto) (0.04-0.36) K/mm3 Baso # (Auto) (0.01-0.08) K/mm3 Manual Slide Review PT (9.7-12.0) SECONDS INR APTT (21.7-31.4) SECONDS Sodium 144 (136-145) mEq/L Potassium 4.4 (3.5-5.1) mEq/L Chloride 106 (98-107) mEq/L Carbon Dioxide 29 (21-32) mEq/L Anion Gap 13.4 (5-15) BUN 18 (7-18) mg/dL Creatinine 0.6 (0.55-1.02) mg/dL Est Cr Clr Drug Dosing 65.65 mL/min Estimated GFR (MDRD) > 60 (>60) mL/min BUN/Creatinine Ratio 30.0 H (14-18) Glucose 111 (83-115) mg/dL Calcium 8.7 (8.5-10.1) mg/dL Magnesium 2.4 (1.8-2.4) mg/dl Total Bilirubin 0.2 (0.2-1.0) mg/dL AST 36 (15-37) U/L ALT 47 (14-59) U/L Alkaline Phosphatase 71 (46-116) U/L Total Protein 5.9 L (6.4-8.2) g/dl Albumin 2.2 L (3.4-5.0) g/dl Globulin 3.7 gm/dL Albumin/Globulin Ratio 0.6 L (1-2) Med Orders - Current: Current Medications Acetaminophen (Tylenol) 650 mg PO Q4H PRN PRN Reason: Pain (Mild 1-3)/fever Benzonatate (Tessalon Perles) 100 mg PO QID PRN PRN Reason: Cough Last Admin: 09/05/20 08:46 Dose: 100 mg Documented by: Calcium Carbonate/Glycine (Tums) 500 mg PO TID PRN PRN Reason: Heartburn Docusate Sodium (Colace) 100 mg PO BID [facility] Last Admin: 09/08/20 08:04 Dose: 100 mg Documented by: Enoxaparin Sodium (Lovenox) 80 mg SUBCUT BID [facility] Last Admin: 09/08/20 11:57 Dose: 80 mg Documented by: Levothyroxine Sodium (Synthroid) 88 mcg PO ACBREAKFAST [facility] Last Admin: 09/08/20 06:27 Dose: 88 mcg Documented by: Ketotifen Eye Drop * (* Ptom) 1 drop EYEBOTH BID PRN PRN Reason: Itching Ondansetron HCl (Zofran) 4 mg IV Q4H PRN PRN Reason: Nausea/Vomiting Pantoprazole Sodium (Protonix) 40 mg PO BID [facility] Last Admin: 09/08/20 08:04 Dose: 40 mg Documented by: Sertraline HCl (Zoloft) 25 mg PO DAILY [facility] Last Admin: 09/08/20 08:04 Dose: 25 mg Documented by: Triamcinolone Acetonide (Triamcinolone Acetonide 0.1% Crm) 0 gm TOP BID PRN PRN Reason: Itching/rash Warfarin Sodium (Pharmacy To Dose - Warfarin) 1 dose .XX ASDIRECTED PRN PRN Reason: RX TO DOSE WARFARIN Warfarin Sodium (Coumadin) 6 mg PO QPM [facility] Discontinued Medications Heparin Sodium (Porcine) (Heparin Sodium) 5,000 units IVPUSH .BOLUS ONE Stop: 09/02/20 21:07 Last Admin: 09/02/20 21:24 Dose: 5,000 units Documented by: Heparin Sodium (Porcine) (Heparin Sodium) 1,500 units IVPUSH .BOLUS ONE Stop: 09/04/20 06:06 Last Admin: 09/04/20 06:23 Dose: 1,500 units Documented by: Heparin Sodium (Porcine) (Heparin Sodium) 1,500 units IVPUSH .BOLUS ONE Stop: 09/07/20 05:37 Last Admin: 09/07/20 06:11 Dose: 1,500 units Documented by: Heparin Sodium/Dextrose (Heparin 25,000 Units In D5w 500 Ml) 25,000 units in 500 mls @ 26 mls/hr IV TITRATE [facility]; Protocol Last Admin: 09/08/20 08:01 Dose: 1,033 units/hr, 20.66 mls/hr Documented by: Magnesium Hydroxide (Milk Of Magnesia) 30 ml PO ONETIME ONE Stop: 09/04/20 09:08 Last Admin: 09/04/20 09:21 Dose: 30 ml Documented by: Triamcinolone Acetonide (Oralone 0.1% Dental Paste) 0 gm DENT BID PRN PRN Reason: Itching Warfarin Sodium (Coumadin) 4 mg PO QPM [facility] Last Admin: 09/06/20 17:08 Dose: 4 mg Documented by: Warfarin Sodium (Coumadin) 6 mg PO QPM [facility] Stop: 09/07/20 18:01 Warfarin Sodium (Coumadin) 6 mg PO QPM [facility] Stop: 09/07/20 18:01 Last Admin: 09/07/20 17:49 Dose: 6 mg Documented by: - Exam Quality Assessment: Reports: Supplemental Oxygen (2L - at baseline ), DVT Prophylaxis General: Reports: Alert, Oriented, Cooperative, No Acute Distress HEENT: Reports: Pupils Equal, Pupils Reactive, Mucous Membr. Moist/[place] Neck: Reports: Supple, Trachea Midline Lungs: Reports: Clear to Auscultation, Normal Respiratory Effort Cardiovascular: Reports: Regular Rate, Regular Rhythm GI/Abdominal Exam: Normal Bowel Sounds, Soft, Non-Tender, No Distention (Female) Exam: Deferred Rectal (Female) Exam: Deferred Back Exam: Reports: Normal Inspection, Full Range of Motion Extremities: Normal Inspection, Normal Range of Motion, Normal Capillary Refill, Pedal Edema (left leg ), Leg Pain (tenderness to left lower leg with palpation - improved ). No: Increased Warmth, Redness Skin: Reports: Warm, Dry, Intact Neurological: Reports: No New Focal Deficit Psy/Mental Status: Reports: Alert, Normal Affect, Normal Mood <Elvis Goodman - Last Filed: 09/08/20 16:02> Discharge Summary - Referral to Home Health Primary Care Physician: Liu Mars MD - Patient Summary/Data Consults: Consultations 09/04/20 22:04 Consult to Dietary [Consult to Machine Sole Leveler] [CONS] Routine 09/05/20 10:51 Consult to Occupational Therapy [OT Evaluation and Treatment] [CONS] Routine PT Evaluation and Treatment [CONS] Routine Hospital Course: I have seen and examined the patient independently of Derrick Ohara PA-C. I have reviewed the orders and agree with the plan of care as outlined by him. I have discussed the case with him. Please see orders. - Patient Data Vitals - Most Recent: Last Vital Signs Temp 36.4 C 09/08/20 15:28 Pulse 54 L 09/08/20 15:28 Resp 20 09/08/20 15:28 BP 112/64 09/08/20 15:28 Pulse Ox 90 L 09/08/20 15:28 I&O - Last 24 hours: Intake & Output 09/08/20 09/08/20 09/08/20 06:59 14:59 22:59 Intake Total 832 720 977 Output Total 600 300 Balance 232 720 677 Lab Results - Last 24 hrs: Laboratory Results - last 24 hr 09/07/20 09/08/20 09/08/20 Range/Units 17:34 05:21 05:21 WBC 8.38 (3.98-10.04) K/mm3 RBC 3.64 L (3.98-5.22) M/mm3 Hgb 10.5 L (11.2-15.7) gm/dl Hct 35.1 (34.1-44.9) % MCV 96.4 H (79.4-94.8) fl MCH 28.8 (25.6-32.2) pg MCHC 29.9 L (32.2-35.5) g/dl RDW Std Deviation 58.7 H (36.4-46.3) fL Plt Count 261 (182-369) K/mm3 MPV 9.3 L (9.4-12.3) fl Neut % (Auto) 54.8 (34.0-71.1) % Lymph % (Auto) 21.1 (19.3-51.7) % Payne % (Auto) 13.5 H (4.7-12.5) % Eos % (Auto) 1.0 (0.7-5.8) Baso % (Auto) 1.1 (0.1-1.2) % Neut # (Auto) 4.60 (1.56-6.13) K/mm3 Lymph # (Auto) 1.77 (1.18-3.74) K/mm3 Payne # (Auto) 1.13 H (0.24-0.36) K/mm3 Eos # (Auto) 0.08 (0.04-0.36) K/mm3 Baso # (Auto) 0.09 H (0.01-0.08) K/mm3 Manual Slide Review Abnormal smear PT 11.4 (9.7-12.0) SECONDS INR 1.07 APTT 56.4 H 55.7 H (21.7-31.4) SECONDS Sodium (136-145) mEq/L Potassium (3.5-5.1) mEq/L Chloride (98-107) mEq/L Carbon Dioxide (21-32) mEq/L Anion Gap (5-15) BUN (7-18) mg/dL Creatinine (0.55-1.02) mg/dL Est Cr Clr Drug Dosing mL/min Estimated GFR (MDRD) (>60) mL/min BUN/Creatinine Ratio (14-18) Glucose (83-115) mg/dL Calcium (8.5-10.1) mg/dL Magnesium (1.8-2.4) mg/dl Total Bilirubin (0.2-1.0) mg/dL AST (15-37) U/L ALT (14-59) U/L Alkaline Phosphatase (46-116) U/L Total Protein (6.4-8.2) g/dl Albumin (3.4-5.0) g/dl Globulin gm/dL Albumin/Globulin Ratio (1-2) 09/08/20 Range/Units 05:21 WBC (3.98-10.04) K/mm3 RBC (3.98-5.22) M/mm3 Hgb (11.2-15.7) gm/dl Hct (34.1-44.9) % MCV (79.4-94.8) fl MCH (25.6-32.2) pg MCHC (32.2-35.5) g/dl RDW Std Deviation (36.4-46.3) fL Plt Count (182-369) K/mm3 MPV (9.4-12.3) fl Neut % (Auto) (34.0-71.1) % Lymph % (Auto) (19.3-51.7) % Payne % (Auto) (4.7-12.5) % Eos % (Auto) (0.7-5.8) Baso % (Auto) (0.1-1.2) % Neut # (Auto) (1.56-6.13) K/mm3 Lymph # (Auto) (1.18-3.74) K/mm3 Payne # (Auto) (0.24-0.36) K/mm3 Eos # (Auto) (0.04-0.36) K/mm3 Baso # (Auto) (0.01-0.08) K/mm3 Manual Slide Review PT (9.7-12.0) SECONDS INR APTT (21.7-31.4) SECONDS Sodium 144 (136-145) mEq/L Potassium 4.4 (3.5-5.1) mEq/L Chloride 106 (98-107) mEq/L Carbon Dioxide 29 (21-32) mEq/L Anion Gap 13.4 (5-15) BUN 18 (7-18) mg/dL Creatinine 0.6 (0.55-1.02) mg/dL Est Cr Clr Drug Dosing 65.65 mL/min Estimated GFR (MDRD) > 60 (>60) mL/min BUN/Creatinine Ratio 30.0 H (14-18) Glucose 111 (83-115) mg/dL Calcium 8.7 (8.5-10.1) mg/dL Magnesium 2.4 (1.8-2.4) mg/dl Total Bilirubin 0.2 (0.2-1.0) mg/dL AST 36 (15-37) U/L ALT 47 (14-59) U/L Alkaline Phosphatase 71 (46-116) U/L Total Protein 5.9 L (6.4-8.2) g/dl Albumin 2.2 L (3.4-5.0) g/dl Globulin 3.7 gm/dL Albumin/Globulin Ratio 0.6 L (1-2) Med Orders - Current: Current Medications Acetaminophen (Tylenol) 650 mg PO Q4H PRN PRN Reason: Pain (Mild 1-3)/fever Benzonatate (Tessalon Perles) 100 mg PO QID PRN PRN Reason: Cough Last Admin: 09/05/20 08:46 Dose: 100 mg Documented by: Calcium Carbonate/Glycine (Tums) 500 mg PO TID PRN PRN Reason: Heartburn Docusate Sodium (Colace) 100 mg PO BID [facility] Last Admin: 09/08/20 08:04 Dose: 100 mg Documented by: Enoxaparin Sodium (Lovenox) 80 mg SUBCUT BID [facility] Last Admin: 09/08/20 11:57 Dose: 80 mg Documented by: Levothyroxine Sodium (Synthroid) 88 mcg PO ACBREAKFAST [facility] Last Admin: 09/08/20 06:27 Dose: 88 mcg Documented by: Ketotifen Eye Drop * (* Ptom) 1 drop EYEBOTH BID PRN PRN Reason: Itching Ondansetron HCl (Zofran) 4 mg IV Q4H PRN PRN Reason: Nausea/Vomiting Pantoprazole Sodium (Protonix) 40 mg PO BID [facility] Last Admin: 09/08/20 08:04 Dose: 40 mg Documented by: Sertraline HCl (Zoloft) 25 mg PO DAILY [facility] Last Admin: 09/08/20 08:04 Dose: 25 mg Documented by: Triamcinolone Acetonide (Triamcinolone Acetonide 0.1% Crm) 0 gm TOP BID PRN PRN Reason: Itching/rash Warfarin Sodium (Pharmacy To Dose - Warfarin) 1 dose .XX ASDIRECTED PRN PRN Reason: RX TO DOSE WARFARIN Warfarin Sodium (Coumadin) 6 mg PO QPM [facility] Discontinued Medications Heparin Sodium (Porcine) (Heparin Sodium) 5,000 units IVPUSH .BOLUS ONE Stop: 09/02/20 21:07 Last Admin: 09/02/20 21:24 Dose: 5,000 units Documented by: Heparin Sodium (Porcine) (Heparin Sodium) 1,500 units IVPUSH .BOLUS ONE Stop: 09/04/20 06:06 Last Admin: 09/04/20 06:23 Dose: 1,500 units Documented by: Heparin Sodium (Porcine) (Heparin Sodium) 1,500 units IVPUSH .BOLUS ONE Stop: 09/07/20 05:37 Last Admin: 09/07/20 06:11 Dose: 1,500 units Documented by: Heparin Sodium/Dextrose (Heparin 25,000 Units In D5w 500 Ml) 25,000 units in 500 mls @ 26 mls/hr IV TITRATE [facility]; Protocol Last Admin: 09/08/20 08:01 Dose: 1,033 units/hr, 20.66 mls/hr Documented by: Magnesium Hydroxide (Milk Of Magnesia) 30 ml PO ONETIME ONE Stop: 09/04/20 09:08 Last Admin: 09/04/20 09:21 Dose: 30 ml Documented by: Triamcinolone Acetonide (Oralone 0.1% Dental Paste) 0 gm DENT BID PRN PRN Reason: Itching Warfarin Sodium (Coumadin) 4 mg PO QPM [facility] [place] Last Admin: 09/06/20 17:08 Dose: 4 mg Documented by: Warfarin Sodium (Coumadin) 6 mg PO QPM [facility] Stop: 09/07/20 18:01 Warfarin Sodium (Coumadin) 6 mg PO QPM [facility] Stop: 09/07/20 18:01 Last Admin: 09/07/20 17:49 Dose: 6 mg Documented by:
[2020-09-08] MEDS ORDERED: Warfarin 3 MG Tab PO SCH (18:00)
== END 2020-09-08 16:34 | DRG 299 ==
LOC: JD.ED 19:25 → JD.MS 21:44
PROVIDERS: ADMIT Family Medicine; ATTEND Family Medicine
DX: I82.432 Acute embolism and thrombosis of left popliteal vein (principal); I82.412 Acute embolism and thrombosis of left femoral vein; E43 Unspecified severe protein-calorie malnutrition; I82.812 Embolism and thrombosis of superficial veins of left lower extremity; M19.90 Unspecified osteoarthritis, unspecified site; E66.9 Obesity, unspecified; Z88.8 Allergy status to other drugs, medicaments and biological substances; Z91.048 Other nonmedicinal substance allergy status; I10 Essential (primary) hypertension; R32 Unspecified urinary incontinence; E03.9 Hypothyroidism, unspecified; Z86.16 Personal history of COVID-19; Z87.19 Personal history of other diseases of the digestive system; Z79.01 Long term (current) use of anticoagulants; Z88.1 Allergy status to other antibiotic agents; Z88.0 Allergy status to penicillin; Z91.041 Radiographic dye allergy status; Z91.09 Other allergy status, other than to drugs and biological substances; Z79.890 Hormone replacement therapy; Z79.899 Other long term (current) drug therapy; Z90.49 Acquired absence of other specified parts of digestive tract; Z99.81 Dependence on supplemental oxygen; Z68.31 Body mass index [BMI] 31.0-31.9, adult; M79.605 Pain in left leg
CPT/HCPCS: 36415; 71045; 80053; 85025; 85610; 85730; 93971; 96374; 99285; J1644 ×2; 51701; 82570; 83735; 84100; 84156; 85027; 87641; 94760; 94761; 97110-GP; 97116-GP; 97162-GP; 99222; 99232; 99233; 99239; A9270-GY; J1650

== ENCOUNTER 2020-09-20 14:22 | Inpatient (IN) | payer MEDICARE, MEDICAID ==
--- NOTE | 2020-09-20 14:49 | EDM.PDOC ---
ED HPI GENERAL MEDICAL PROBLEM - General Chief Complaint: Lower Extremity Injury/Pain Stated Complaint: [facility] Time Seen by Provider: 09/20/20 14:28 - History of Present Illness INITIAL COMMENTS - FREE TEXT/NARRATIVE: 80-year-old female presents to the emergency room brought in by EMS with right ankle swelling and discomfort. Patient noticed this in the morning today. She has had increasing swelling and some discomfort. She has a recent history of developing a DVT in the left lower extremity and has some swelling associated with that so she was wondering if perhaps if she was developing a blood clot the right side. She is has a little bit of a cough and some mild shortness of breath this is been persistent since her Covid infection a couple of months ago. Seems to have an increasing cough occasionally productive mostly clear to slightly off-color sputum. Patient has been on oxygen since she had Covid. Patient is currently taking warfarin for the DVT. This was chosen because of its reversibility if she had GI bleeding issues. Right Ankle Pain Score (Numeric/FACES): 5 - Related Data Allergies Allergy/AdvReac Type Severity Reaction Status Date / Time adhesive Allergy Severe Rash Verified 09/20/20 14:28 Iodine and Iodide Containing Allergy Severe Itching Verified 09/20/20 14:28 Produc levofloxacin [From Levaquin] Allergy Severe Rash Verified 09/20/20 14:28 Penicillins AdvReac Severe Diarrhea Verified 09/20/20 14:28 Home Meds: Home Meds Levothyroxine [Synthroid] 88 mcg PO DAILY 04/24/20 [History] Acetaminophen [Non-Aspirin Extra Strength] 500 mg PO BEDTIME PRN 09/02/20 [History] Benzonatate [Tessalon Perle] 100 mg PO QID PRN 09/02/20 [History] Betamethasone Valerate [Valisone 0.1% Crm] 0 gm TOP DAILY PRN 09/02/20 [History] Calcium Carbonate [Tums] 500 mg PO TID PRN 09/02/20 [History] Docusate Sodium 100 mg PO BID 09/02/20 [History] Ketotifen [Ketotifen 0.025% Ophth Soln] 1 drop EYEBOTH BID PRN 09/02/20 [History] Multivitamin [Daily Multiple Vitamin] 1 each PO DAILY 09/02/20 [History] Pantoprazole Sodium 40 mg PO BID 09/02/20 [History] Sertraline [Zoloft] 25 mg PO DAILY 09/02/20 [History] Triamcinolone Acetonide [Triamcinolone Acetonide 0.1% Crm] 1 applic TOP BID PRN 09/05/20 [History] Enoxaparin [Lovenox] 80 mg SUBCUT BID #8 syringe 09/08/20 [Rx] Warfarin [Coumadin] 6 mg PO QPM #10 tablet 09/08/20 [Rx] Past Medical History HEENT History: Reports: Impaired Vision Cardiovascular History: Reports: Blood Clots/VTE/DVT, Hypertension Respiratory History: Reports: Other (See Below) Other Respiratory History: 2 liters nasal cannula pt wears at home since having COVID. Gastrointestinal History: Reports: GI Bleed Genitourinary History: Reports: Urinary Incontinence [employer] History: Reports: Musculoskeletal History: Reports: Osteoarthritis Other Musculoskeletal History: knee pain, rotator cuff but not surgery Psychiatric History: Reports: Anxiety Endocrine/Metabolic History: Reports: Hypothyroidism, Obesity/BMI 30+ Other Endocrine/Metabolic History: thyroid issues - Infectious Disease History Infectious Disease History: Reports: Chicken Pox, Influenza, Measles - Past Surgical History HEENT Surgical History: Reports: Cataract Surgery, Tonsillectomy, Other (See Below) Other HEENT Surgeries/Procedures: pt wears glasses GI Surgical History: Reports: Appendectomy, Cholecystectomy, Hernia, Abdominal Social & Family History - Family History Family Medical History: No Pertinent Family History - Tobacco Use Tobacco Use Status *Q: Never Tobacco User - Caffeine Use Caffeine Use: Reports: None - Recreational Drug Use Recreational Drug Use: No - Living Situation & Occupation Living situation: Reports: , with Spouse Occupation: Retired Review of Systems - Review of Systems Review Of Systems: See Below Constitutional: Reports: No Symptoms Eyes: Reports: No Symptoms Ears: Reports: No Symptoms Nose: Reports: No Symptoms Mouth/Throat: Reports: No Symptoms Respiratory: Reports: Shortness of Breath, Cough, Sputum, Other (Her shortness of breath and cough are not new this is been an ongoing issue for the last several months. She does have a little bit of a tickle in her throat at times) Cardiovascular: Reports: No Symptoms GI/Abdominal: Reports: No Symptoms Genitourinary: Reports: Other (The patient has noticed that when she has to go she really has to go she has a harder time controlling it.) Musculoskeletal: Reports: No Symptoms Skin: Reports: No Symptoms Neurological: Reports: No Symptoms Psychiatric: Reports: No Symptoms ED EXAM, GENERAL - Physical Exam Exam: See Below Exam Limited By: No Limitations General Appearance: Alert, No Apparent Distress Nose: Normal Inspection, Normal Mucosa, No Blood Throat/Mouth: Normal Inspection, Normal Lips, Normal Gums, Normal Oropharynx, Normal Voice, No Airway Compromise Head: Atraumatic, Normocephalic Neck: Normal Inspection, Supple, Non-Tender. No: Lymphadenopathy (L), Lymphadenopathy (R) Respiratory/Chest: No Respiratory Distress, Lungs Clear, Crackles (Basis) Cardiovascular: Regular Rate, Rhythm, Other (+1 pitting edema bilaterally) GI/Abdominal: Normal Bowel Sounds, Soft, Non-Tender Back Exam: Normal Inspection. No: CVA Tenderness (L), CVA Tenderness (R) Extremities: Pedal Edema (1 Plus bilateral pitting edema), Other (Palpation both legs reveal some calf tenderness no significant redness or warmth) Neurological: Alert, Oriented, Normal Cognition Psychiatric: Normal Affect Skin Exam: Warm, Dry, Intact Lymphatic: No Adenopathy Course - Vital Signs Last Recorded V/S: Last Vital Signs Temp 36.5 C 09/20/20 14:24 Pulse 83 09/20/20 18:45 Resp 16 09/20/20 18:45 BP 123/66 09/20/20 18:45 Pulse Ox 92 L 09/20/20 18:45 - Orders/Labs/Meds Orders: Active Orders 24 hr Category Date Time Status EKG Documentation Completion [RC] STAT Care 09/20/20 15:03 Active CORONAVIRUS COVID-19 HUMAIRA [MOLEC] Stat Lab 09/20/20 18:27 Received CULTURE BLOOD [BC] Stat Lab 09/20/20 18:32 Received CULTURE BLOOD [BC] Stat Lab 09/20/20 18:38 Received CULTURE URINE [RM] Stat Lab 09/20/20 17:20 Received Blood Culture x2 Reflex Set [OM.PC] Stat Oth 09/20/20 18:05 Ordered Medication Orders Acetaminophen (Tylenol) 650 mg PO Q6H PRN PRN Reason: Pain (Mild 1-3)/fever Albuterol/Ipratropium (Duoneb 3.0-0.5 Mg/3 Ml) 3 ml NEB Q4H PRN PRN Reason: Shortness Of Breath/wheezing Benzonatate (Tessalon Perles) 100 mg PO QID PRN PRN Reason: Cough Calcium Carbonate/Glycine (Tums) 500 mg PO TID PRN PRN Reason: Heartburn Dexamethasone (Dexamethasone) 6 mg PO DAILY [facility] Docusate Sodium (Colace) 100 mg PO BID PRN PRN Reason: Constipation Hydralazine HCl (Apresoline) 10 mg IVPUSH Q4H PRN PRN Reason: Hypertension Promethazine HCl 12.5 mg/ (Sodium Chloride) 50.5 mls @ 100 mls/hr IV Q6H PRN PRN Reason: Nausea/Vomiting Levofloxacin/Dextrose 500 mg/ (Premix) 100 mls @ 100 mls/hr IV Q24H [facility] Insulin Human Lispro (Humalog) 0 unit SUBCUT QIDACANDBED [facility]; Protocol Levothyroxine Sodium (Synthroid) 88 mcg PO DAILY [facility] Morphine Sulfate (Morphine) 2 mg IVPUSH Q4H PRN PRN Reason: Pain (severe 7-10) Stop: 09/21/20 18:44 Non-Formulary Medication (Ketotifen) 1 drop EYEBOTH BID PRN PRN Reason: Itching Non-Formulary Medication (Multivitamin [Daily Multiple Vitamin]) 1 each PO DAILY [facility] Non-Formulary Medication (Pantoprazole Sodium [Pantoprazole Sodium]) 40 mg PO BID [facility] Oxycodone HCl (Oxycodone) 5 mg PO Q6H PRN PRN Reason: Pain (moderate 4-6) Sertraline HCl (Zoloft) 25 mg PO DAILY [facility] Warfarin Sodium (Coumadin) 6 mg PO QPM [facility] Labs: Laboratory Tests 09/20/20 09/20/20 09/20/20 Range/Units 15:29 15:29 15:29 WBC 12.29 H (3.98-10.04) K/mm3 RBC 3.83 L (3.98-5.22) M/mm3 Hgb 11.2 (11.2-15.7) gm/dl Hct 37.1 (34.1-44.9) % MCV 96.9 H (79.4-94.8) fl MCH 29.2 (25.6-32.2) pg MCHC 30.2 L (32.2-35.5) g/dl RDW Std Deviation 59.4 H (36.4-46.3) fL Plt Count 407 H D (182-369) K/mm3 MPV 9.4 (9.4-12.3) fl Neut % (Auto) 63.6 (34.0-71.1) % Lymph % (Auto) 19.2 L (19.3-51.7) % Lander % (Auto) 12.5 (4.7-12.5) % Eos % (Auto) 3.1 (0.7-5.8) Baso % (Auto) 0.6 (0.1-1.2) % Neut # (Auto) 7.82 H (1.56-6.13) K/mm3 Lymph # (Auto) 2.36 (1.18-3.74) K/mm3 Lander # (Auto) 1.54 H (0.24-0.36) K/mm3 Eos # (Auto) 0.38 H (0.04-0.36) K/mm3 Baso # (Auto) 0.07 (0.01-0.08) K/mm3 Manual Slide Review Abnormal smear PT 22.3 H D (9.7-12.0) SECONDS INR 2.11 Sodium 140 (136-145) mEq/L Potassium 4.1 (3.5-5.1) mEq/L Chloride 102 (98-107) mEq/L Carbon Dioxide 28 (21-32) mEq/L Anion Gap 14.1 (5-15) BUN 20 H (7-18) mg/dL Creatinine 0.6 (0.55-1.02) mg/dL Est Cr Clr Drug Dosing 65.65 mL/min Estimated GFR (MDRD) > 60 (>60) mL/min BUN/Creatinine Ratio 33.3 H (14-18) Glucose 108 (83-115) mg/dL Calcium 8.7 (8.5-10.1) mg/dL Total Bilirubin 0.1 L (0.2-1.0) mg/dL AST 21 (15-37) U/L ALT 43 (14-59) U/L Alkaline Phosphatase 80 (46-116) U/L Troponin I < 0.017 (0.00-0.056) ng/mL NT-Pro-B Natriuret Pep (0-450) pg/mL Total Protein 6.2 L (6.4-8.2) g/dl Albumin 2.5 L (3.4-5.0) g/dl Globulin 3.7 gm/dL Albumin/Globulin Ratio 0.7 L (1-2) Urine Color (Yellow) Urine Appearance (Clear) Urine pH (5.0-8.0) Ur Specific [place] (1.005-1.030) Urine Protein (Negative) Urine Glucose (UA) (Negative) Urine Ketones (Negative) Urine Occult Blood (Negative) Urine Nitrite (Negative) Urine Bilirubin (Negative) Urine Urobilinogen (0.2-1.0) Ur Leukocyte Esterase (Negative) Urine RBC (0-5) /hpf Urine WBC (0-5) /hpf Ur Squamous Epith Cells (0-5) /hpf Urine Bacteria (FEW) /hpf Urine Mucus (FEW) /hpf 09/20/20 09/20/20 Range/Units 15:29 17:20 WBC (3.98-10.04) K/mm3 RBC (3.98-5.22) M/mm3 Hgb (11.2-15.7) gm/dl Hct (34.1-44.9) % MCV (79.4-94.8) fl MCH (25.6-32.2) pg MCHC (32.2-35.5) g/dl RDW Std Deviation (36.4-46.3) fL Plt Count (182-369) K/mm3 MPV (9.4-12.3) fl Neut % (Auto) (34.0-71.1) % Lymph % (Auto) (19.3-51.7) % Lander % (Auto) (4.7-12.5) % Eos % (Auto) (0.7-5.8) Baso % (Auto) (0.1-1.2) % Neut # (Auto) (1.56-6.13) K/mm3 Lymph # (Auto) (1.18-3.74) K/mm3 Lander # (Auto) (0.24-0.36) K/mm3 Eos # (Auto) (0.04-0.36) K/mm3 Baso # (Auto) (0.01-0.08) K/mm3 Manual Slide Review PT (9.7-12.0) SECONDS INR Sodium (136-145) mEq/L Potassium (3.5-5.1) mEq/L Chloride (98-107) mEq/L Carbon Dioxide (21-32) mEq/L Anion Gap (5-15) BUN (7-18) mg/dL Creatinine (0.55-1.02) mg/dL Est Cr Clr Drug Dosing mL/min Estimated GFR (MDRD) (>60) mL/min BUN/Creatinine Ratio (14-18) Glucose (83-115) mg/dL Calcium (8.5-10.1) mg/dL Total Bilirubin (0.2-1.0) mg/dL AST (15-37) U/L ALT (14-59) U/L Alkaline Phosphatase (46-116) U/L Troponin I (0.00-0.056) ng/mL NT-Pro-B Natriuret Pep 283 (0-450) pg/mL Total Protein (6.4-8.2) g/dl Albumin (3.4-5.0) g/dl Globulin gm/dL Albumin/Globulin Ratio (1-2) Urine Color Yellow (Yellow) Urine Appearance Clear (Clear) Urine pH 7.5 (5.0-8.0) Ur Specific [place] 1.015 (1.005-1.030) Urine Protein Negative (Negative) Urine Glucose (UA) Negative (Negative) Urine Ketones Negative (Negative) Urine Occult Blood Negative (Negative) Urine Nitrite Negative (Negative) Urine Bilirubin Negative (Negative) Urine Urobilinogen 0.2 (0.2-1.0) Ur Leukocyte Esterase Trace H (Negative) Urine RBC Not seen (0-5) /hpf Urine WBC 0-5 (0-5) /hpf Ur Squamous Epith Cells 0-5 (0-5) /hpf Urine Bacteria Rare (FEW) /hpf Urine Mucus Not seen (FEW) /hpf Meds: Medications Generic Name Dose Route Start Last Admin Trade Name Freq PRN Reason Stop Dose Admin Acetaminophen 650 mg 09/20/20 18:40 Tylenol PO Q6H PRN Pain (Mild 1-3)/fever Albuterol/Ipratropium 3 ml 09/20/20 18:40 Duoneb 3.0-0.5 Mg/3 Ml NEB Q4H PRN Shortness Of Breath/wheezing Benzonatate 100 mg 02/09/21 18:52 Tessalon Perles PO QID PRN Cough Calcium Carbonate/Glycine 500 mg 09/20/20 18:52 Tums PO TID PRN Heartburn Dexamethasone 6 mg 09/21/20 09:00 Dexamethasone PO DAILY [facility] Docusate Sodium 100 mg 09/20/20 18:40 Colace PO BID PRN Constipation Hydralazine HCl 10 mg 09/20/20 18:56 Apresoline IVPUSH Q4H PRN Hypertension Promethazine HCl 12.5 mg/ 50.5 mls @ 100 mls/hr 09/20/20 18:40 Sodium Chloride IV Q6H PRN Nausea/Vomiting Levofloxacin/Dextrose 500 mg/ 100 mls @ 100 mls/hr 09/20/20 19:00 Premix IV Q24H [facility] Insulin Human Lispro 0 unit 09/20/20 22:00 Humalog SUBCUT QIDACANDBED [facility] Protocol Levothyroxine Sodium 88 mcg 09/21/20 09:00 Synthroid PO DAILY [facility] Morphine Sulfate 2 mg 09/20/20 18:40 Morphine IVPUSH 09/21/20 18:44 Q4H PRN Pain (severe 7-10) Non-Formulary Medication 1 drop 09/20/20 18:52 Ketotifen EYEBOTH BID PRN Itching Non-Formulary Medication 1 each 09/21/20 09:00 Multivitamin [Daily Multiple Vitamin] PO DAILY [facility] Non-Formulary Medication 40 mg 09/20/20 21:00 Pantoprazole Sodium [Pantoprazole Sodium] PO BID [facility] Oxycodone HCl 5 mg 09/20/20 18:40 Oxycodone PO Q6H PRN Pain (moderate 4-6) Sertraline HCl 25 mg 09/21/20 09:00 Zoloft PO DAILY [facility] Warfarin Sodium 6 mg 09/21/20 18:00 Coumadin PO QPM [facility] Discontinued Medications Generic Name Dose Route Start Last Admin Trade Name Freq PRN Reason Stop Dose Admin Ceftriaxone Sodium 1 gm/ 100 mls @ 200 mls/hr 09/20/20 18:15 Sodium Chloride IV Q24H [facility] Ceftriaxone Sodium 2 gm/ 100 mls @ 200 mls/hr 09/20/20 18:30 09/20/20 18:44 Sodium Chloride IV 200 mls/hr Q24H [facility] Administration - Re-Assessments/Exams Free Text/Narrative Re-Assessment/Exam: 09/20/20 18:19 Venous Doppler is unremarkable on the right leg. Patient's INR is therapeutic. Her white count slightly elevated. Chest x-ray is looks like she has a developing pneumonia left base more than right base. With her worsening edema worried about heart failure heard proBNP is normal I cannot find a echo in the chart. At this point the patient should probably stay in the hospital. Discussed the patient with Dr. Black who will accept the patient. The patient be started on Rocephin however can have to keep a close eye on her INR to make sure this does not work its way up. The patient should also be started on doxycycli ne to cover atypicals. Blood cultures I believe have been obtained. Consideration should be given to checking an echocardiogram to exclude diastolic dysfunction. Departure - Departure Time of Disposition: 18:21 Disposition: Admitted As Inpatient 67 Clinical Impression: Pneumonia, Edema of both legs - Discharge Information Sepsis Event Note (ED) - Evaluation Sepsis Screening Result: No Definite Risk - Focused Exam Vital Signs: Vital Signs Temp Pulse Resp BP Pulse Ox 09/20/20 14:24 36.5 C 97 18 110/64 92 L - My Orders Last 24 Hours: My Active Orders 09/20/20 15:03 EKG Documentation Completion [RC] STAT 09/20/20 17:20 CULTURE URINE [RM] Stat 09/20/20 18:05 Blood Culture x2 Reflex Set [OM.PC] Stat 09/20/20 18:27 CORONAVIRUS COVID-19 HUMAIRA [MOLEC] Stat 09/20/20 18:32 CULTURE BLOOD [BC] Stat 09/20/20 18:38 CULTURE BLOOD [BC] Stat - Assessment/Plan Last 24 Hours: My Active Orders 09/20/20 15:03 EKG Documentation Completion [RC] STAT 09/20/20 17:20 CULTURE URINE [RM] Stat 09/20/20 18:05 Blood Culture x2 Reflex Set [OM.PC] Stat 09/20/20 18:27 CORONAVIRUS COVID-19 HUMAIRA [MOLEC] Stat 09/20/20 18:32 CULTURE BLOOD [BC] Stat 09/20/20 18:38 CULTURE BLOOD [BC] Stat
--- NOTE | 2020-09-20 16:24 | US ---
Right lower extremity deep venous ultrasound: Duplex and color Doppler evaluation was obtained of the right common femoral, proximal greater saphenous, superficial femoral, popliteal, posterior tibial and peroneal veins. Left common femoral vein was also evaluated. Findings: Normal phasic flow, augmentation and compression is seen. Cystic structure is noted within the posterior fossa measuring 5.9 x 3.6 x 3.8 cm which is felt compatible with a popliteal cyst. Impression: 1. No findings of deep venous thrombosis within the right lower extremity or within the left common femoral vein. 2. Popliteal cyst as measured above. Diagnostic code #3
--- NOTE | 2020-09-20 16:26 | CR ---
Chest: Portable view of the chest was obtained. Comparison: Prior chest x-ray of 09/02/20. Findings: Patchy areas of increased density are noted on both sides of the chest. Findings are felt to be slightly worsened within the lung bases from prior exam. Heart is felt to be slightly prominent. Upper mediastinum is normal. Scoliosis is noted within the spine. Calcification is noted within the upper right abdomen which is compatible with renal calculus. Impression: 1. Slight increasing parenchymal densities within both lung bases as an interval change from prior study. Findings within both upper lungs are stable. 2. Other findings as noted above which are stable. Diagnostic code #3
[2020-09-20] MEDS ORDERED: cefTRIAXone 1 GM in Sodium Chloride 0.9% 100 ML IV SCH (18:15)
[2020-09-20] MEDS ORDERED: cefTRIAXone 2 GM in Sodium Chloride 0.9% 100 ML IV SCH (18:30)
[2020-09-20] MEDS ORDERED: Acetaminophen 325 MG Tab PO PRN (18:40)
[2020-09-20] MEDS ORDERED: Morphine 2 MG/ML SYRINGE IVPUSH PRN (18:40)
[2020-09-20] MEDS ORDERED: Docusate Sodium 100 MG Cap PO PRN (18:40)
[2020-09-20] MEDS ORDERED: oxyCODONE 5 MG Tab PO PRN (18:40)
[2020-09-20] MEDS ORDERED: Albuterol/Ipratropium 3.0-0.5 MG/3 ML Neb Soln NEB PRN (18:40)
[2020-09-20] MEDS ORDERED: Promethazine 12.5 MG in Sodium Chloride 0.9% 50 ML IV PRN (18:40)
[2020-09-20] MEDS ORDERED: KETOTIFEN EYEBOTH PRN (18:52)
[2020-09-20] MEDS ORDERED: Calcium Carbonate 500 MG Tab.Chew PO PRN (18:52)
[2020-09-20] MEDS ORDERED: Benzonatate 100 MG Cap PO PRN (18:52)
[2020-09-20] MEDS ORDERED: hydrALAZINE 20 MG/ML SDV IVPUSH PRN (18:56)
--- NOTE | 2020-09-20 19:18 | PCM.HP.2 ---
H&P History of Present Illness - General Date of Service: 09/20/20 Admit Problem/Dx: Admission Diagnosis/Problem Admission Diagnosis/Problem Respiratory failure with hypoxia Source of Information: Patient, Other (ER physician Dr. Almendarez) - History of Present Illness Initial Comments - Free Text/Narative: Pt is a 80yof with a hx of HTN and GI bleeding who presented to the ER today due to leg swelling. Pt is a poor history and most information is obtained from ER Dr. Almendarez. Pt had a positive Covid 19 test months ago. She has been having sob and on home oxygen 2L since the time when the covid 19 was diagnosed. She also complains of cough. She was admitted into [facility] in [facility] due to Covid 19. During that hospitalization, she had a episode of GI bleeding that she needed transfusion. For the reason, she was started on warfarin instead of Eliquis. In the ER, CXR showed pneumonia. US Doppler negative for right leg PE. Right Ankle Pain Score (Numeric/FACES): 5 - Related Data Allergies/Adverse Reactions: Allergies Allergy/AdvReac Type Severity Reaction Status Date / Time adhesive Allergy Severe Rash Verified 09/20/20 14:28 Iodine and Iodide Containing Allergy Severe Itching Verified 09/20/20 14:28 Produc levofloxacin [From Levaquin] Allergy Severe Rash Verified 09/20/20 14:28 Penicillins AdvReac Severe Diarrhea Verified 09/20/20 14:28 Home Medications: Home Meds Levothyroxine [Synthroid] 88 mcg PO DAILY 04/24/20 [History] Acetaminophen [Non-Aspirin Extra Strength] 500 mg PO BEDTIME PRN 09/02/20 [History] Benzonatate [Tessalon Perle] 100 mg PO QID PRN 09/02/20 [History] Betamethasone Valerate [Valisone 0.1% Crm] 0 gm TOP DAILY PRN 09/02/20 [History] Calcium Carbonate [Tums] 500 mg PO TID PRN 09/02/20 [History] Docusate Sodium 100 mg PO BID 09/02/20 [History] Ketotifen [Ketotifen 0.025% Ophth Soln] 1 drop EYEBOTH BID PRN 09/02/20 [Hist ory] Multivitamin [Daily Multiple Vitamin] 1 each PO DAILY 09/02/20 [History] Pantoprazole Sodium 40 mg PO BID 09/02/20 [History] Sertraline [Zoloft] 25 mg PO DAILY 09/02/20 [History] Triamcinolone Acetonide [Triamcinolone Acetonide 0.1% Crm] 1 applic TOP BID PRN 09/05/20 [History] Enoxaparin [Lovenox] 80 mg SUBCUT BID #8 syringe 09/08/20 [Rx] Warfarin [Coumadin] 6 mg PO QPM #10 tablet 09/08/20 [Rx] Past Medical History HEENT History: Reports: Impaired Vision Cardiovascular History: Reports: Blood Clots/VTE/DVT, Hypertension Respiratory History: Reports: Other (See Below) Other Respiratory History: 2 liters nasal cannula pt wears at home since having COVID. 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: Musculoskeletal History: Reports: Osteoarthritis Other Musculoskeletal History: knee pain, rotator cuff but not surgery Psychiatric History: Reports: Anxiety Endocrine/Metabolic History: Reports: Hypothyroidism, Obesity/BMI 30+ Other Endocrine/Metabolic History: thyroid issues - Infectious Disease History Infectious Disease History: Reports: Chicken Pox, Influenza, Measles - Past Surgical History HEENT Surgical History: Reports: Cataract Surgery, Tonsillectomy, Other (See Below) Other HEENT Surgeries/Procedures: pt wears glasses GI Surgical History: Reports: Appendectomy, Cholecystectomy, Hernia, Abdominal Social & Family History - Family History Family Medical History: No Pertinent Family History - Tobacco Use Tobacco Use Status *Q: Never Tobacco User - Caffeine Use Caffeine Use: Reports: None - Recreational Drug Use Recreational Drug Use: No - Living Situation & Occupation Living situation: Reports: , with Spouse Occupation: Retired H&P Review of Systems - Review of Systems: Review Of Systems: See Below Review of Systems Comment:: Positive for SOB and cough. All other system were reviewed and negative. Exam - Exam Exam: See Below - Vital Signs Vital Signs: Last Vital Signs Temp 36.5 C 09/20/20 14:24 Pulse 83 09/20/20 18:45 Resp 16 09/20/20 18:45 BP 123/66 09/20/20 18:45 Pulse Ox 92 L 09/20/20 18:45 Weight: 86.545 kg - Exam Physical Exam Comments:: Physical Exam: General: No acute distress Eyes: Conjunctival clear, EMOI, no nystagmus HEENT: Supple, no JVD, no thyromegaly Lung: Diminished breath sound, bibasilar crackles. Heart: RRR, no m/r/g Abd: BS present, soft, no tenderness Ext: Pitting edema1-2+. Neurolog: A+O x 3, no focal neurological deficits Psych: normal mood. - Patient Data Lab Results Last 24 hrs: Laboratory Results - last 24 hr 09/20/20 09/20/20 09/20/20 Range/Units 15:29 15:29 15:29 WBC 12.29 H (3.98-10.04) K/mm3 RBC 3.83 L (3.98-5.22) M/mm3 Hgb 11.2 (11.2-15.7) gm/dl Hct 37.1 (34.1-44.9) % MCV 96.9 H (79.4-94.8) fl MCH 29.2 (25.6-32.2) pg MCHC 30.2 L (32.2-35.5) g/dl RDW Std Deviation 59.4 H (36.4-46.3) fL Plt Count 407 H D (182-369) K/mm3 MPV 9.4 (9.4-12.3) fl Neut % (Auto) 63.6 (34.0-71.1) % Lymph % (Auto) 19.2 L (19.3-51.7) % [place] % (Auto) 12.5 (4.7-12.5) % Eos % (Auto) 3.1 (0.7-5.8) Baso % (Auto) 0.6 (0.1-1.2) % Neut # (Auto) 7.82 H (1.56-6.13) K/mm3 Lymph # (Auto) 2.36 (1.18-3.74) K/mm3 [place] # (Auto) 1.54 H (0.24-0.36) K/mm3 Eos # (Auto) 0.38 H (0.04-0.36) K/mm3 Baso # (Auto) 0.07 (0.01-0.08) K/mm3 Manual Slide Review Abnormal smear PT 22.3 H D (9.7-12.0) SECONDS INR 2.11 Sodium 140 (136-145) mEq/L Potassium 4.1 (3.5-5.1) mEq/L Chloride 102 (98-107) mEq/L Carbon Dioxide 28 (21-32) mEq/L Anion Gap 14.1 (5-15) BUN 20 H (7-18) mg/dL Creatinine 0.6 (0.55-1.02) mg/dL Est Cr Clr Drug Dosing 65.65 mL/min Estimated GFR (MDRD) > 60 (>60) mL/min BUN/Creatinine Ratio 33.3 H (14-18) Glucose 108 (83-115) mg/dL Calcium 8.7 (8.5-10.1) mg/dL Total Bilirubin 0.1 L (0.2-1.0) mg/dL AST 21 (15-37) U/L ALT 43 (14-59) U/L Alkaline Phosphatase 80 (46-116) U/L Troponin I < 0.017 (0.00-0.056) ng/mL NT-Pro-B Natriuret Pep (0-450) pg/mL Total Protein 6.2 L (6.4-8.2) g/dl Albumin 2.5 L (3.4-5.0) g/dl Globulin 3.7 gm/dL Albumin/Globulin Ratio 0.7 L (1-2) Urine Color (Yellow) Urine Appearance (Clear) Urine pH (5.0-8.0) Ur Specific [place] (1.005-1.030) Urine Protein (Negative) Urine Glucose (UA) (Negative) Urine Ketones (Negative) Urine Occult Blood (Negative) Urine Nitrite (Negative) Urine Bilirubin (Negative) Urine Urobilinogen (0.2-1.0) Ur Leukocyte Esterase (Negative) Urine RBC (0-5) /hpf Urine WBC (0-5) /hpf Ur Squamous Epith Cells (0-5) /hpf Urine Bacteria (FEW) /hpf Urine Mucus (FEW) /hpf 09/20/20 09/20/20 Range/Units 15:29 17:20 WBC (3.98-10.04) K/mm3 RBC (3.98-5.22) M/mm3 Hgb (11.2-15.7) gm/dl Hct (34.1-44.9) % MCV (79.4-94.8) fl MCH (25.6-32.2) pg MCHC (32.2-35.5) g/dl RDW Std Deviation (36.4-46.3) fL Plt Count (182-369) K/mm3 MPV (9.4-12.3) fl Neut % (Auto) (34.0-71.1) % Lymph % (Auto) (19.3-51.7) % [place] % (Auto) (4.7-12.5) % Eos % (Auto) (0.7-5.8) Baso % (Auto) (0.1-1.2) % Neut # (Auto) (1.56-6.13) K/mm3 Lymph # (Auto) (1.18-3.74) K/mm3 [place] # (Auto) (0.24-0.36) K/mm3 Eos # (Auto) (0.04-0.36) K/mm3 Baso # (Auto) (0.01-0.08) K/mm3 Manual Slide Review PT (9.7-12.0) SECONDS INR Sodium (136-145) mEq/L Potassium (3.5-5.1) mEq/L Chloride (98-107) mEq/L Carbon Dioxide (21-32) mEq/L Anion Gap (5-15) BUN (7-18) mg/dL Creatinine (0.55-1.02) mg/dL Est Cr Clr Drug Dosing mL/min Estimated GFR (MDRD) (>60) mL/min BUN/Creatinine Ratio (14-18) Glucose (83-115) mg/dL Calcium (8.5-10.1) mg/dL Total Bilirubin (0.2-1.0) mg/dL AST (15-37) U/L ALT (14-59) U/L Alkaline Phosphatase (46-116) U/L Troponin I (0.00-0.056) ng/mL NT-Pro-B Natriuret Pep 283 (0-450) pg/mL Total Protein (6.4-8.2) g/dl Albumin (3.4-5.0) g/dl Globulin gm/dL Albumin/Globulin Ratio (1-2) Urine Color Yellow (Yellow) Urine Appearance Clear (Clear) Urine pH 7.5 (5.0-8.0) Ur Specific [place] 1.015 (1.005-1.030) Urine Protein Negative (Negative) Urine Glucose (UA) Negative (Negative) Urine Ketones Negative (Negative) Urine Occult Blood Negative (Negative) Urine Nitrite Negative (Negative) Urine Bilirubin Negative (Negative) Urine Urobilinogen 0.2 (0.2-1.0) Ur Leukocyte Esterase Trace H (Negative) Urine RBC Not seen (0-5) /hpf Urine WBC 0-5 (0-5) /hpf Ur Squamous Epith Cells 0-5 (0-5) /hpf Urine Bacteria Rare (FEW) /hpf Urine Mucus Not seen (FEW) /hpf Result Diagrams: 09/20/20 15:29 09/20/20 15:29 Sepsis Event Note - Evaluation Sepsis Screening Result: No Definite Risk - Focused Exam Vital Signs: Vital Signs Temp Pulse Resp BP Pulse Ox 09/20/20 18:45 83 16 123/66 92 L 09/20/20 14:24 36.5 C 97 18 110/64 92 L Problem List Initiated/Reviewed/Updated: Yes Orders Last 24hrs: Active Orders 24 hr Category Date Time Status Patient Status [ADT] Routine ADT 09/20/20 18:40 Active Bedrest Bedside Commode [RC] ASDIRECTED Care 09/20/20 18:40 Active Cardiac Monitoring [RC] CONTINUOUS Care 09/20/20 18:42 Active EKG Documentation Completion [RC] STAT Care 09/20/20 15:03 Active Intake and Output [RC] QSHIFT Care 09/20/20 18:42 Active Oxygen Therapy [RC] PRN Care 09/20/20 18:40 Active Pulse Oximetry [RC] CONTINUOUS Care 09/20/20 18:42 Active RT Aerosol Therapy [RC] ASDIRECTED Care 09/20/20 18:45 Active VTE/DVT Education [RC] PER UNIT ROUTINE Care 09/20/20 18:40 Active Vital Signs [RC] Q4H Care 09/20/20 18:40 Active OT Evaluation and Treatment [CONS] Routine Cons 09/20/20 18:46 Active PT Evaluation and Treatment [CONS] Routine Cons 09/20/20 18:46 Active Regular Diet [DIET] Diet 09/20/20 Dinner Active C-REACTIVE PROTEIN [CHEM] DAILY Lab 09/20/20 19:05 Received CBC WITH AUTO DIFF [HEME] DAILY Lab 09/21/20 05:00 Ordered CBC WITH AUTO DIFF [HEME] DAILY Lab 09/22/20 05:00 Ordered CBC WITH AUTO DIFF [HEME] DAILY Lab 09/23/20 05:00 Ordered CBC WITH AUTO DIFF [HEME] DAILY Lab 09/24/20 05:00 Ordered CBC WITH AUTO DIFF [HEME] DAILY Lab 09/25/20 05:00 Ordered COMPREHENSIVE METABOLIC PN,CMP [CHEM] DAILY Lab 09/21/20 05:00 Ordered COMPREHENSIVE METABOLIC PN,CMP [CHEM] DAILY Lab 09/22/20 05:00 Ordered COMPREHENSIVE METABOLIC PN,CMP [CHEM] DAILY Lab 09/23/20 05:00 Ordered COMPREHENSIVE METABOLIC PN,CMP [CHEM] DAILY Lab 09/24/20 05:00 Ordered COMPREHENSIVE METABOLIC PN,CMP [CHEM] DAILY Lab 09/25/20 05:00 Ordered CORONAVIRUS COVID-19 HUMAIRA [MOLEC] Stat Lab 09/20/20 18:27 Received CULTURE BLOOD [BC] Stat Lab 09/20/20 18:32 Received CULTURE BLOOD [BC] Stat Lab 09/20/20 18:38 Received CULTURE MRSA [RM] Stat Lab 09/20/20 18:46 Ordered CULTURE SPUTUM + SMEAR [RM] Stat Lab 09/20/20 18:46 Ordered CULTURE URINE [RM] Stat Lab 09/20/20 17:20 Received D-DIMER QUANTITATIVE [COAG] DAILY Lab 09/21/20 05:00 Ordered D-DIMER QUANTITATIVE [COAG] DAILY Lab 09/22/20 05:00 Ordered D-DIMER QUANTITATIVE [COAG] DAILY Lab 09/23/20 05:00 Ordered D-DIMER QUANTITATIVE [COAG] DAILY Lab 09/24/20 05:00 Ordered D-DIMER QUANTITATIVE [COAG] DAILY Lab 09/25/20 05:00 Ordered INR,PT,PROTHROMBIN TIME [COAG] DAILY Lab 09/21/20 05:00 Ordered INR,PT,PROTHROMBIN TIME [COAG] DAILY Lab 09/22/20 05:00 Ordered INR,PT,PROTHROMBIN TIME [COAG] DAILY Lab 09/23/20 05:00 Ordered INR,PT,PROTHROMBIN TIME [COAG] DAILY Lab 09/24/20 05:00 Ordered INR,PT,PROTHROMBIN TIME [COAG] DAILY Lab 09/25/20 05:00 Ordered INR,PT,PROTHROMBIN TIME [COAG] Routine Lab 09/20/20 19:05 Received MAGNESIUM [CHEM] Routine Lab 09/20/20 19:05 Received TROPONIN I [CHEM] Routine Lab 09/20/20 19:05 Received Acetaminophen [TylenoL] Med 09/20/20 18:40 Active 650 mg PO Q6H PRN Albuterol/Ipratropium [DuoNeb 3.0-0.5 MG/3 ML] Med 09/20/20 18:40 Active 3 ml NEB Q4H PRN Benzonatate [Tessalon Perles] Med 09/20/20 18:52 Active 100 mg PO QID PRN Calcium Carbonate [Tums] Med 09/20/20 18:52 Active 500 mg PO TID PRN Docusate Sodium [Colace] Med 09/20/20 18:40 Active 100 mg PO BID PRN Insulin Lispro [HumaLOG] Med 09/20/20 22:00 Active See Protocol SUBCUT QIDACANDBED Ketotifen Med 09/20/20 18:52 Active 1 drop EYEBOTH BID PRN Levofloxacin/Dextrose 5%-Water [Levaquin in D5W 500 MG/ Med 09/20/20 19:00 Active 100 ML] 500 mg Premix Bag 1 bag IV Q24H Levothyroxine [Synthroid] Med 09/21/20 09:00 Active 88 mcg PO DAILY Morphine Med 09/20/20 18:40 Active 2 mg IVPUSH Q4H PRN Multivitamin [Daily Multiple Vitamin] Med 09/21/20 09:00 Active 1 each PO DAILY Pantoprazole Sodium [Pantoprazole Sodium] Med 09/20/20 21:00 Active 40 mg PO BID Promethazine [Phenergan] 12.5 mg Med 09/20/20 18:40 Active Sodium Chloride 0.9% [Normal Saline] 50 ml IV Q6H Sertraline [Zoloft] Med 09/21/20 09:00 Active 25 mg PO DAILY Warfarin [Coumadin] Med 09/21/20 18:00 Active 6 mg PO QPM dexAMETHasone Med 09/21/20 09:00 Active 6 mg PO DAILY hydrALAZINE [Apresoline] Med 09/20/20 18:56 Active 10 mg IVPUSH Q4H PRN oxyCODONE Med 09/20/20 18:40 Active 5 mg PO Q6H PRN Blood Culture x2 Reflex Set [OM.PC] Stat Oth 09/20/20 18:05 Ordered Medication Orders Acetaminophen (Tylenol) 650 mg PO Q6H PRN PRN Reason: Pain (Mild 1-3)/fever Albuterol/Ipratropium (Duoneb 3.0-0.5 Mg/3 Ml) 3 ml NEB Q4H PRN PRN Reason: Shortness Of Breath/wheezing Benzonatate (Tessalon Perles) 100 mg PO QID PRN PRN Reason: Cough Calcium Carbonate/Glycine (Tums) 500 mg PO TID PRN PRN Reason: Heartburn Dexamethasone (Dexamethasone) 6 mg PO DAILY [facility] Docusate Sodium (Colace) 100 mg PO BID PRN PRN Reason: Constipation Hydralazine HCl (Apresoline) 10 mg IVPUSH Q4H PRN PRN Reason: Hypertension Promethazine HCl 12.5 mg/ (Sodium Chloride) 50.5 mls @ 100 mls/hr IV Q6H PRN PRN Reason: Nausea/Vomiting Levofloxacin/Dextrose 500 mg/ (Premix) 100 mls @ 100 mls/hr IV Q24H [facility] Insulin Human Lispro (Humalog) 0 unit SUBCUT QIDACANDBED [facility]; Protocol Levothyroxine Sodium (Synthroid) 88 mcg PO DAILY [facility] Morphine Sulfate (Morphine) 2 mg IVPUSH Q4H PRN PRN Reason: Pain (severe 7-10) Stop: 09/21/20 18:44 Non-Formulary Medication (Ketotifen) 1 drop EYEBOTH BID PRN PRN Reason: Itching Non-Formulary Medication (Multivitamin [Daily Multiple Vitamin]) 1 each PO DAILY [facility] Non-Formulary Medication (Pantoprazole Sodium [Pantoprazole Sodium]) 40 mg PO BID [facility] Oxycodone HCl (Oxycodone) 5 mg PO Q6H PRN PRN Reason: Pain (moderate 4-6) Sertraline HCl (Zoloft) 25 mg PO DAILY [facility] Warfarin Sodium (Coumadin) 6 mg PO QPM [facility] Assessment/Plan Comment:: Assessment and plan: 1. Acute on chronic hypoxic respiratory failure3= pulse ox O2 therapy. Pt has been on home oxygen 2L 2. Pneumonia, Covid 19? or CAP? 3. Covid 19 was positive, repeat Covid 19 in ER pending CXR - worsening infiltrate Blood culture Sputum culture MRSA screen considering hx of treatment, I will start her on levaquin 500mg iv daily Dexamethasone 6mg po daily Continue warfarin Inhalers CRP and D-dimer daily 4. 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 GI bleeding? CBC daily pantoprazole 6. Hypothyroidism Continue home synthroid 88mcg daily 7. HTN Continue home meds hydralazine prn 8. leg swelling, b/l Has been on anticoagulation Doppler in the ER - negative for DVT, right. BNP 283 intake and output 9. GI and DVT prophylaxis: PPI and warfarin - Mortality Measure Prognosis:: Poor
[2020-09-20] MEDS ORDERED: PANTOPRAZOLE SODIUM 40 MG PO SCH (21:00)
[2020-09-20] MEDS: Levofloxacin/Dextrose 5%-Water 500 MG in Premix Bag 1 BAG IV SCH (22:08)
[2020-09-20] MEDS: Pantoprazole 40 MG Tab.CR PO SCH (23:56)
[2020-09-21] MEDS: Levothyroxine 88 MCG Tab PO SCH (05:51)
[2020-09-21] MEDS: Pantoprazole 40 MG Tab.CR PO SCH ×2 (05:51→17:40)
[2020-09-21] MEDS ORDERED: Ketotifen 1 DROP EYEBOTH PRN (07:20)
--- NOTE | 2020-09-21 08:11 | PCM.PN ---
- General Info Date of Service: 09/21/20 Admission Dx/Problem (Free Text): Admission Diagnosis/Problem Admission Diagnosis/Problem Respiratory failure with hypoxia Subjective Update: See Yessi. She is laying in bed. She reports her respiratory status is much improved. Upon further investigation she reports her leg pain was actually right ankle pain that started suddenly yesterday. She denies any recent trauma. Pain is noted medially with palpation. No pain with dorsiflexion or plantarflexion. No pain with eversion or inversion. Pain is only with palpation or when patient bears weight. No other pain to either leg on palpation. Will order ankle x-ray using portable machine due to patient on isolation for positive COVID-19 screen. Patient has had saturations in the upper 90s and is on her baseline 2 L. Will discontinue continuous pulse ox and telemetry as patient is doing quite well. We will also discontinue p.o. dexamethasone but continue IV Levaquin for now. Procalcitonin ordered off of this morning's labs. Culture is growing out gram-positive cocci however was negative. Will await culture results. Blood cultures are still pending. Likely discharge in 1 to 2 days pending continued improvement. Functional Status: Reports: Pain Controlled, Tolerating Diet, Ambulating, Urinating, Incentive Spirometry, Other (acapella ). Denies: New Symptoms - Review of Systems General: Reports: Weakness. Denies: Fever, Fatigue, Malaise, Chills HEENT: Reports: No Symptoms. Denies: Headaches, Sore Throat Pulmonary: Reports: Shortness of Breath (chronic ), Cough (occasional ). Denies: Sputum, Wheezing Cardiovascular: Reports: No Symptoms Gastrointestinal: Reports: No Symptoms. Denies: Abdominal Pain, Constipation, Diarrhea, Nausea, Vomiting Genitourinary: Reports: No Symptoms. Denies: Pain Musculoskeletal: Reports: Foot Pain (right ankle with weightbearing and palpation - no recent trauma) Skin: Reports: No Symptoms. Denies: Cyanosis Neurological: Reports: Pre-Existing Deficit, Difficulty Walking, Weakness, Gait Disturbance. Denies: Confusion Psychiatric: Reports: No Symptoms - Patient Data Vitals - Most Recent: Last Vital Signs Temp 97.9 F 09/21/20 03:46 Pulse 84 09/21/20 04:45 Resp 18 09/20/20 23:49 BP 132/86 09/21/20 03:46 Pulse Ox 97 09/21/20 06:04 Weight - Most Recent: 195 lb 1.6 oz I&O - Last 24 Hours: Intake & Output 09/20/20 09/21/20 09/21/20 22:59 06:59 14:59 Intake Total 500 Balance 500 Lab Results Last 24 Hours: Laboratory Results - last 24 hr 09/20/20 09/20/20 09/20/20 Range/Units 15:29 15:29 15:29 WBC 12.29 H (3.98-10.04) K/mm3 RBC 3.83 L (3.98-5.22) M/mm3 Hgb 11.2 (11.2-15.7) gm/dl Hct 37.1 (34.1-44.9) % MCV 96.9 H (79.4-94.8) fl MCH 29.2 (25.6-32.2) pg MCHC 30.2 L (32.2-35.5) g/dl RDW Std Deviation 59.4 H (36.4-46.3) fL Plt Count 407 H D (182-369) K/mm3 MPV 9.4 (9.4-12.3) fl Neut % (Auto) 63.6 (34.0-71.1) % Lymph % (Auto) 19.2 L (19.3-51.7) % Bullock % (Auto) 12.5 (4.7-12.5) % Eos % (Auto) 3.1 (0.7-5.8) Baso % (Auto) 0.6 (0.1-1.2) % Neut # (Auto) 7.82 H (1.56-6.13) K/mm3 Lymph # (Auto) 2.36 (1.18-3.74) K/mm3 Bullock # (Auto) 1.54 H (0.24-0.36) K/mm3 Eos # (Auto) 0.38 H (0.04-0.36) K/mm3 Baso # (Auto) 0.07 (0.01-0.08) K/mm3 Manual Slide Review Abnormal smear PT 22.3 H D (9.7-12.0) SECONDS INR 2.11 D-Dimer, Quantitative (0.19-0.50) mg/L Sodium 140 (136-145) mEq/L Potassium 4.1 (3.5-5.1) mEq/L Chloride 102 (98-107) mEq/L Carbon Dioxide 28 (21-32) mEq/L Anion Gap 14.1 (5-15) BUN 20 H (7-18) mg/dL Creatinine 0.6 (0.55-1.02) mg/dL Est Cr Clr Drug Dosing 65.65 mL/min Estimated GFR (MDRD) > 60 (>60) mL/min BUN/Creatinine Ratio 33.3 H (14-18) Glucose 108 (83-115) mg/dL POC Glucose (83-110) mg/dL Calcium 8.7 (8.5-10.1) mg/dL Magnesium (1.8-2.4) mg/dl Total Bilirubin 0.1 L (0.2-1.0) mg/dL AST 21 (15-37) U/L ALT 43 (14-59) U/L Alkaline Phosphatase 80 (46-116) U/L Troponin I < 0.017 (0.00-0.056) ng/mL C-Reactive Protein (<1.0) mg/dL NT-Pro-B Natriuret Pep (0-450) pg/mL Total Protein 6.2 L (6.4-8.2) g/dl Albumin 2.5 L (3.4-5.0) g/dl Globulin 3.7 gm/dL Albumin/Globulin Ratio 0.7 L (1-2) Urine Color (Yellow) Urine Appearance (Clear) Urine pH (5.0-8.0) Ur Specific [place] (1.005-1.030) Urine Protein (Negative) Urine Glucose (UA) (Negative) Urine Ketones (Negative) Urine Occult Blood (Negative) Urine Nitrite (Negative) Urine Bilirubin (Negative) Urine Urobilinogen (0.2-1.0) Ur Leukocyte Esterase (Negative) Urine RBC (0-5) /hpf Urine WBC (0-5) /hpf Ur Squamous Epith Cells (0-5) /hpf Urine Bacteria (FEW) /hpf Urine Mucus (FEW) /hpf SARS-CoV-2 RNA (HUMAIRA) (NEGATIVE) MRSA (PCR) 09/20/20 09/20/20 09/20/20 Range/Units 15:29 17:20 18:27 WBC (3.98-10.04) K/mm3 RBC (3.98-5.22) M/mm3 Hgb (11.2-15.7) gm/dl Hct (34.1-44.9) % MCV (79.4-94.8) fl MCH (25.6-32.2) pg MCHC (32.2-35.5) g/dl RDW Std Deviation (36.4-46.3) fL Plt Count (182-369) K/mm3 MPV (9.4-12.3) fl Neut % (Auto) (34.0-71.1) % Lymph % (Auto) (19.3-51.7) % Bullock % (Auto) (4.7-12.5) % Eos % (Auto) (0.7-5.8) Baso % (Auto) (0.1-1.2) % Neut # (Auto) (1.56-6.13) K/mm3 Lymph # (Auto) (1.18-3.74) K/mm3 Bullock # (Auto) (0.24-0.36) K/mm3 Eos # (Auto) (0.04-0.36) K/mm3 Baso # (Auto) (0.01-0.08) K/mm3 Manual Slide Review PT (9.7-12.0) SECONDS INR D-Dimer, Quantitative (0.19-0.50) mg/L Sodium (136-145) mEq/L Potassium (3.5-5.1) mEq/L Chloride (98-107) mEq/L Carbon Dioxide (21-32) mEq/L Anion Gap (5-15) BUN (7-18) mg/dL Creatinine (0.55-1.02) mg/dL Est Cr Clr Drug Dosing mL/min Estimated GFR (MDRD) (>60) mL/min BUN/Creatinine Ratio (14-18) Glucose (83-115) mg/dL POC Glucose (83-110) mg/dL Calcium (8.5-10.1) mg/dL Magnesium (1.8-2.4) mg/dl Total Bilirubin (0.2-1.0) mg/dL AST (15-37) U/L ALT (14-59) U/L Alkaline Phosphatase (46-116) U/L Troponin I (0.00-0.056) ng/mL C-Reactive Protein (<1.0) mg/dL NT-Pro-B Natriuret Pep 283 (0-450) pg/mL Total Protein (6.4-8.2) g/dl Albumin (3.4-5.0) g/dl Globulin gm/dL Albumin/Globulin Ratio (1-2) Urine Color Yellow (Yellow) Urine Appearance Clear (Clear) Urine pH 7.5 (5.0-8.0) Ur Specific [place] 1.015 (1.005-1.030) Urine Protein Negative (Negative) Urine Glucose (UA) Negative (Negative) Urine Ketones Negative (Negative) Urine Occult Blood Negative (Negative) Urine Nitrite Negative (Negative) Urine Bilirubin Negative (Negative) Urine Urobilinogen 0.2 (0.2-1.0) Ur Leukocyte Esterase Trace H (Negative) Urine RBC Not seen (0-5) /hpf Urine WBC 0-5 (0-5) /hpf Ur Squamous Epith Cells 0-5 (0-5) /hpf Urine Bacteria Rare (FEW) /hpf Urine Mucus Not seen (FEW) /hpf SARS-CoV-2 RNA (HUMAIRA) Positive H (NEGATIVE) MRSA (PCR) 09/20/20 09/20/20 09/20/20 Range/Units 19:05 19:05 19:05 WBC (3.98-10.04) K/mm3 RBC (3.98-5.22) M/mm3 Hgb (11.2-15.7) gm/dl Hct (34.1-44.9) % MCV (79.4-94.8) fl MCH (25.6-32.2) pg MCHC (32.2-35.5) g/dl RDW Std Deviation (36.4-46.3) fL Plt Count (182-369) K/mm3 MPV (9.4-12.3) fl Neut % (Auto) (34.0-71.1) % Lymph % (Auto) (19.3-51.7) % Bullock % (Auto) (4.7-12.5) % Eos % (Auto) (0.7-5.8) Baso % (Auto) (0.1-1.2) % Neut # (Auto) (1.56-6.13) K/mm3 Lymph # (Auto) (1.18-3.74) K/mm3 Bullock # (Auto) (0.24-0.36) K/mm3 Eos # (Auto) (0.04-0.36) K/mm3 Baso # (Auto) (0.01-0.08) K/mm3 Manual Slide Review PT 21.6 H (9.7-12.0) SECONDS INR 2.05 D-Dimer, Quantitative (0.19-0.50) mg/L Sodium (136-145) mEq/L Potassium (3.5-5.1) mEq/L Chloride (98-107) mEq/L Carbon Dioxide (21-32) mEq/L Anion Gap (5-15) BUN (7-18) mg/dL Creatinine (0.55-1.02) mg/dL Est Cr Clr Drug Dosing mL/min Estimated GFR (MDRD) (>60) mL/min BUN/Creatinine Ratio (14-18) Glucose (83-115) mg/dL POC Glucose (83-110) mg/dL Calcium (8.5-10.1) mg/dL Magnesium 2.3 (1.8-2.4) mg/dl Total Bilirubin (0.2-1.0) mg/dL AST (15-37) U/L ALT (14-59) U/L Alkaline Phosphatase (46-116) U/L Troponin I < 0.017 (0.00-0.056) ng/mL C-Reactive Protein 2.1 H* (<1.0) mg/dL NT-Pro-B Natriuret Pep (0-450) pg/mL Total Protein (6.4-8.2) g/dl Albumin (3.4-5.0) g/dl Globulin gm/dL Albumin/Globulin Ratio (1-2) Urine Color (Yellow) Urine Appearance (Clear) Urine pH (5.0-8.0) Ur Specific [place] (1.005-1.030) Urine Protein (Negative) Urine Glucose (UA) (Negative) Urine Ketones (Negative) Urine Occult Blood (Negative) Urine Nitrite (Negative) Urine Bilirubin (Negative) Urine Urobilinogen (0.2-1.0) Ur Leukocyte Esterase (Negative) Urine RBC (0-5) /hpf Urine WBC (0-5) /hpf Ur Squamous Epith Cells (0-5) /hpf Urine Bacteria (FEW) /hpf Urine Mucus (FEW) /hpf SARS-CoV-2 RNA (HUMAIRA) (NEGATIVE) MRSA (PCR) 09/20/20 09/20/20 09/21/20 Range/Units 20:15 22:05 06:26 WBC 9.83 (3.98-10.04) K/mm3 RBC 3.95 L (3.98-5.22) M/mm3 Hgb 11.4 (11.2-15.7) gm/dl Hct 38.9 (34.1-44.9) % MCV 98.5 H (79.4-94.8) fl MCH 28.9 (25.6-32.2) pg MCHC 29.3 L (32.2-35.5) g/dl RDW Std Deviation 61.8 H (36.4-46.3) fL Plt Count 381 H (182-369) K/mm3 MPV 10.1 (9.4-12.3) fl Neut % (Auto) 68.2 (34.0-71.1) % Lymph % (Auto) 15.6 L (19.3-51.7) % Bullock % (Auto) 10.6 (4.7-12.5) % Eos % (Auto) 3.9 (0.7-5.8) Baso % (Auto) 0.5 (0.1-1.2) % Neut # (Auto) 6.71 H (1.56-6.13) K/mm3 Lymph # (Auto) 1.53 (1.18-3.74) K/mm3 Bullock # (Auto) 1.04 H (0.24-0.36) K/mm3 Eos # (Auto) 0.38 H (0.04-0.36) K/mm3 Baso # (Auto) 0.05 (0.01-0.08) K/mm3 Manual Slide Review Abnormal smear PT (9.7-12.0) SECONDS INR D-Dimer, Quantitative (0.19-0.50) mg/L Sodium (136-145) mEq/L Potassium (3.5-5.1) mEq/L Chloride (98-107) mEq/L Carbon Dioxide (21-32) mEq/L Anion Gap (5-15) BUN (7-18) mg/dL Creatinine (0.55-1.02) mg/dL Est Cr Clr Drug Dosing mL/min Estimated GFR (MDRD) (>60) mL/min BUN/Creatinine Ratio (14-18) Glucose (83-115) mg/dL POC Glucose 151 H (83-110) mg/dL Calcium (8.5-10.1) mg/dL Magnesium (1.8-2.4) mg/dl Total Bilirubin (0.2-1.0) mg/dL AST (15-37) U/L ALT (14-59) U/L Alkaline Phosphatase (46-116) U/L Troponin I (0.00-0.056) ng/mL C-Reactive Protein (<1.0) mg/dL NT-Pro-B Natriuret Pep (0-450) pg/mL Total Protein (6.4-8.2) g/dl Albumin (3.4-5.0) g/dl Globulin gm/dL Albumin/Globulin Ratio (1-2) Urine Color (Yellow) Urine Appearance (Clear) Urine pH (5.0-8.0) Ur Specific [place] (1.005-1.030) Urine Protein (Negative) Urine Glucose (UA) (Negative) Urine Ketones (Negative) Urine Occult Blood (Negative) Urine Nitrite (Negative) Urine Bilirubin (Negative) Urine Urobilinogen (0.2-1.0) Ur Leukocyte Esterase (Negative) Urine RBC (0-5) /hpf Urine WBC (0-5) /hpf Ur Squamous Epith Cells (0-5) /hpf Urine Bacteria (FEW) /hpf Urine Mucus (FEW) /hpf SARS-CoV-2 RNA (HUMAIRA) (NEGATIVE) MRSA (PCR) Negative 09/21/20 09/21/20 Range/Units 06:26 06:26 WBC (3.98-10.04) K/mm3 RBC (3.98-5.22) M/mm3 Hgb (11.2-15.7) gm/dl Hct (34.1-44.9) % MCV (79.4-94.8) fl MCH (25.6-32.2) pg MCHC (32.2-35.5) g/dl RDW Std Deviation (36.4-46.3) fL Plt Count (182-369) K/mm3 MPV (9.4-12.3) fl Neut % (Auto) (34.0-71.1) % Lymph % (Auto) (19.3-51.7) % [place] % (Auto) (4.7-12.5) % Eos % (Auto) (0.7-5.8) Baso % (Auto) (0.1-1.2) % Neut # (Auto) (1.56-6.13) K/mm3 Lymph # (Auto) (1.18-3.74) K/mm3 [place]ock # (Auto) (0.24-0.36) K/mm3 Eos # (Auto) (0.04-0.36) K/mm3 Baso # (Auto) (0.01-0.08) K/mm3 Manual Slide Review PT 18.1 H (9.7-12.0) SECONDS INR 1.71 D-Dimer, Quantitative 0.81 H (0.19-0.50) mg/L Sodium 142 (136-145) mEq/L Potassium 4.3 (3.5-5.1) mEq/L Chloride 103 (98-107) mEq/L Carbon Dioxide 30 (21-32) mEq/L Anion Gap 13.3 (5-15) BUN 15 (7-18) mg/dL Creatinine 0.6 (0.55-1.02) mg/dL Est Cr Clr Drug Dosing 65.65 mL/min Estimated GFR (MDRD) > 60 (>60) mL/min BUN/Creatinine Ratio 25.0 H (14-18) Glucose 102 (83-115) mg/dL POC Glucose (83-110) mg/dL Calcium 8.7 (8.5-10.1) mg/dL Magnesium (1.8-2.4) mg/dl Total Bilirubin 0.2 (0.2-1.0) mg/dL AST 18 (15-37) U/L ALT 37 (14-59) U/L Alkaline Phosphatase 74 (46-116) U/L Troponin I (0.00-0.056) ng/mL C-Reactive Protein (<1.0) mg/dL NT-Pro-B Natriuret Pep (0-450) pg/mL Total Protein 6.1 L (6.4-8.2) g/dl Albumin 2.4 L (3.4-5.0) g/dl Globulin 3.7 gm/dL Albumin/Globulin Ratio 0.7 L (1-2) Urine Color (Yellow) Urine Appearance (Clear) Urine pH (5.0-8.0) Ur Specific [place] (1.005-1.030) Urine Protein (Negative) Urine Glucose (UA) (Negative) Urine Ketones (Negative) Urine Occult Blood (Negative) Urine Nitrite (Negative) Urine Bilirubin (Negative) Urine Urobilinogen (0.2-1.0) Ur Leukocyte Esterase (Negative) Urine RBC (0-5) /hpf Urine WBC (0-5) /hpf Ur Squamous Epith Cells (0-5) /hpf Urine Bacteria (FEW) /hpf Urine Mucus (FEW) /hpf SARS-CoV-2 RNA (HUMAIRA) (NEGATIVE) MRSA (PCR) Med Orders - Current: Current Medications Acetaminophen (Tylenol) 650 mg PO Q6H PRN PRN Reason: Pain (Mild 1-3)/fever Albuterol/Ipratropium (Duoneb 3.0-0.5 Mg/3 Ml) 3 ml NEB Q4H PRN PRN Reason: Shortness Of Breath/wheezing Benzonatate (Tessalon Perles) 100 mg PO QID PRN PRN Reason: Cough Calcium Carbonate/Glycine (Tums) 500 mg PO TID PRN PRN Reason: Heartburn Dexamethasone (Dexamethasone) 6 mg PO DAILY [facility] Docusate Sodium (Colace) 100 mg PO BID PRN PRN Reason: Constipation Hydralazine HCl (Apresoline) 10 mg IVPUSH Q4H PRN PRN Reason: Hypertension Promethazine HCl 12.5 mg/ (Sodium Chloride) 50.5 mls @ 100 mls/hr IV Q6H PRN PRN Reason: Nausea/Vomiting Levofloxacin/Dextrose 500 mg/ (Premix) 100 mls @ 100 mls/hr IV Q24H [facility] Last Admin: 09/20/20 22:08 Dose: 100 mls/hr Documented by: Insulin Human Lispro (Humalog) 0 unit SUBCUT QIDACANDBED [facility]; Protocol Last Admin: 09/21/20 06:53 Dose: Not Given Documented by: Levothyroxine Sodium (Synthroid) 88 mcg PO ACBREAKFAST [facility] Last Admin: 09/21/20 05:51 Dose: 88 mcg Documented by: Morphine Sulfate (Morphine) 2 mg IVPUSH Q4H PRN PRN Reason: Pain (severe 7-10) Stop: 09/21/20 18:44 Multivitamins (Thera) 1 each PO DAILY [facility] Oxycodone HCl (Oxycodone) 5 mg PO Q6H PRN PRN Reason: Pain (moderate 4-6) Pantoprazole Sodium (Protonix) 40 mg PO BIDAC [facility] Last Admin: 09/21/20 05:51 Dose: 40 mg Documented by: Ketotifen 1 Drop 0 each EYEBOTH BID PRN PRN Reason: Itching Sertraline HCl (Zoloft) 25 mg PO DAILY [facility] Warfarin Sodium (Pharmacy To Dose - Warfarin) 1 dose .XX ASDIRECTED [facility] Discontinued Medications Ceftriaxone Sodium 1 gm/ (Sodium Chloride) 100 mls @ 200 mls/hr IV Q24H [facility] Ceftriaxone Sodium 2 gm/ (Sodium Chloride) 100 mls @ 200 mls/hr IV Q24H [facility] Last Admin: 09/20/20 18:44 Dose: 200 mls/hr Documented by: Levothyroxine Sodium (Synthroid) 88 mcg PO DAILY [facility] Non-Formulary Medication (Ketotifen) 1 drop EYEBOTH BID PRN PRN Reason: Itching Non-Formulary Medication (Multivitamin [Daily Multiple Vitamin]) 1 each PO DAILY [facility] Non-Formulary Medication (Pantoprazole Sodium [Pantoprazole Sodium]) 40 mg PO BID [facility] Last Admin: 09/21/20 02:54 Dose: Not Given Documented by: Warfarin Sodium (Coumadin) 6 mg PO QPM [facility] - Exam Quality Assessment: Supplemental Oxygen (2L ), DVT Prophylaxis. No: Urine Catheter General: Alert, Oriented, Cooperative, No Acute Distress HEENT: Pupils Equal, Pupils Reactive, Mucous Membr. Moist/Mettler Neck: Supple, Trachea Midline Lungs: Normal Respiratory Effort, Decreased Breath Sounds, Crackles (bilateral ). No: Clear to Auscultation, Wheezing GI/Abdominal Exam: Normal Bowel Sounds, Soft, Non-Tender, No Organomegaly, No Distention, No Abnormal Bruit, No Mass, Pelvis Stable (Female) Exam: Deferred Back Exam: Normal Inspection, Full Range of Motion Extremities: Normal Inspection, Normal Range of Motion, Non-Tender, Normal Capillary Refill, Pedal Edema (1-2+ bilaterally ), Other (Right foot pain medial aspect of ankle with palpation) Skin: Warm, Dry, Intact Neurological: No New Focal Deficit Psy/Mental Status: Alert, Normal Affect, Normal Mood Sepsis Event Note - Evaluation Sepsis Screening Result: No Definite Risk - Focused Exam Vital Signs: Vital Signs Temp Pulse Pulse Resp BP Pulse Ox Pulse Ox 09/21/20 06:04 97 09/21/20 04:45 84 93 L 09/21/20 03:46 97.9 F 132/86 09/20/20 23:49 97.9 F 80 18 109/69 96 09/20/20 20:45 98.4 F 74 28 H 123/67 98 - Problem List & Annotations (1) History of DVT (deep vein thrombosis) SNOMED Code(s): 753426021 Code(s): Z86.718 - PERSONAL HISTORY OF OTHER VENOUS THROMBOSIS AND EMBOLISM Status: Chronic Priority: Medium Current Visit: Yes (2) Chronic anticoagulation SNOMED Code(s): 983991980 Code(s): Z79.01 - MILK TREATER (CURRENT) USE OF ANTICOAGULANTS Status: Chronic Priority: Medium Current Visit: Yes (3) Vitamin D deficiency SNOMED Code(s): 98928603 Code(s): E55.9 - VITAMIN D DEFICIENCY, UNSPECIFIED Status: Acute Priority: High Current Visit: Yes (4) Edema of both legs SNOMED Code(s): 841167430, 10137997, 492920049 Code(s): R60.0 - LOCALIZED EDEMA Status: Acute Priority: High Current Visit: Yes (5) Pneumonia SNOMED Code(s): 923773181 Code(s): J18.9 - PNEUMONIA, UNSPECIFIED ORGANISM Status: Acute Priority: High Current Visit: Yes Qualifiers: Pneumonia type: due to unspecified organism Laterality: bilateral Lung location: lower lobe of lung Qualified Code(s): J18.9 - Pneumonia, unspecified organism (6) History of COVID-19 SNOMED Code(s): 058468433687278655, 943466750554982051 Code(s): Z86.16 - PERSONAL HISTORY OF COVID-19 Status: Chronic Priority: Medium Current Visit: No (7) History of GI bleed SNOMED Code(s): 029931619 Code(s): Z87.19 - PERSONAL HISTORY OF OTHER DISEASES OF THE DIGESTIVE SYSTEM Status: Chronic Priority: Low Current Visit: No (8) Hypertension SNOMED Code(s): 75519749 Code(s): I10 - ESSENTIAL (PRIMARY) HYPERTENSION Status: Chronic Priority: Medium Current Visit: No Qualifiers: Hypertension type: unspecified Qualified Code(s): I10 - Essential (primary) hypertension (9) Hypothyroidism SNOMED Code(s): 54877869 Code(s): E03.9 - HYPOTHYROIDISM, UNSPECIFIED Status: Chronic Priority: Low Current Visit: No Qualifiers: Hypothyroidism type: unspecified Qualified Code(s): E03.9 - Hypothyroidism, unspecified (10) Bacteriuria SNOMED Code(s): 35893824 Code(s): R82.71 - BACTERIURIA Status: Acute Priority: Medium Current Visit: Yes (11) Subtherapeutic anticoagulation SNOMED Code(s): 537054474 Code(s): Z51.81 - ENCOUNTER FOR THERAPEUTIC DRUG LEVEL MONITORING; Z79.01 - HALF-WAY (CURRENT) USE OF ANTICOAGULANTS Status: Acute Priority: High Current Visit: Yes (12) Elevated d-dimer SNOMED Code(s): 517260200 Code(s): R79.89 - OTHER SPECIFIED ABNORMAL FINDINGS OF BLOOD CHEMISTRY Status: Chronic Priority: Medium Current Visit: Yes (13) Acute right ankle pain SNOMED Code(s): 30787815158674 Code(s): M25.571 - PAIN IN RIGHT ANKLE AND JOINTS OF RIGHT FOOT Status: Acute Priority: High Current Visit: Yes - Problem List Review Problem List Initiated/Reviewed/Updated: Yes - My Orders Last 24 Hours: My Active Orders 09/21/20 08:03 Consult to Case Management/Rotor Assembler [CONS] Routine Respiratory Care Assess and Treatment [CONS] Routine 09/21/20 08:08 Incentive Spirometry [RT Incentive Spirometry] [RC] ASDIRECTED RT Chest Physiotherapy [RC] ASDIRECTED 09/21/20 08:15 Pharmacy to Dose - Warfarin 1 dose .XX ASDIRECTED - Plan Plan:: Assessment and plan: Pneumonia Chronic hypoxic respiratory failure History of COVID-19 infection Elevated D-Dimer Repeat COVID-19 screen was positive WBC 12.29-->8.23 CRP 2.1-->2.7 D-Dimer 0.81 CXR - worsening infiltrate Blood culture pending Sputum culture O2 as needed - baseline 2L MRSA screen negative Considering hx of treatment, started on levaquin 500mg iv daily Will stop dexamethasone as patient is very stable Inhalers Q48 D-Dimer CRP Airborne/contact isolation IS/Acapella RT consultation PT/OT Zinc/vitamin D supplementation Hx of left leg DVT Chronic anticoagulation (warfarin) Subtheraputic INR INR 2.11-->2.05-->1.71 Continue warfarin- pharmacy to dose INR daily History of GI bleed CBC daily Home pantoprazole Hypothyroidism Continue home Synthroid 88mcg daily HTN Continue home meds hydralazine prn Leg swelling, b/l Right ankle pain Pain with weightbearing to right ankle Pain with palpation to right lateral aspect of ankle - denies recent trauma Has been on anticoagulation Doppler in the ER - negative for DVT, right. BNP 283 Intake and output Right portable (due to isolation) ankle x-ray Vitamin D deficiency Vitamin D 25.7 Start daily supplementation Bacteriuria Patient reports increased urge incontinence UA negative in ED Urine culture sent - growing gram positive cocci Monitor GI and DVT prophylaxis: Home PPI and warfarin
[2020-09-21 08:54] LABS: VITAMIN D,25-HYDROXY 25.7 ng/ml (30.0-100.0)
[2020-09-21] MEDS ORDERED: MULTIVITAMIN PO SCH (09:00)
[2020-09-21] MEDS ORDERED: Levothyroxine 88 MCG Tab PO SCH (09:00)
[2020-09-21] MEDS ORDERED: Dexamethasone 4 MG Tab PO SCH (09:00)
[2020-09-21] MEDS: Multivitamins,Therapeutic Tab PO SCH (10:36)
[2020-09-21] MEDS: Sertraline 25 MG Tab PO SCH (10:36)
[2020-09-21] MEDS ORDERED: Albuterol 6.7 GM Inhaler INH PRN (12:57)
[2020-09-21] MEDS: Zinc Sulfate 220 MG Cap PO SCH (14:00)
[2020-09-21] MEDS: Cholecalciferol (Vitamin D3) 5,000 UNIT Cap PO SCH (14:01)
--- NOTE | 2020-09-21 15:18 | CR ---
Right ankle: 3 views of the right ankle were obtained. Comparison: No prior ankle study is available. Plantar spur is noted. Spur is noted at the attachment of the Achilles tendon to the calcaneus. Several small calcifications are also noted within the distal Achilles tendon. Ankle mortise is symmetric. Bony structures are slightly osteopenic. No acute fracture, dislocation or other bony abnormality is appreciated. Impression: 1. Calcaneal spurs as noted above. Osteopenia. 2. Nothing acute is seen on right ankle exam. Diagnostic code #2
[2020-09-21] MEDS ORDERED: Warfarin 3 MG Tab PO SCH ×2 (18:00)
[2020-09-21] MEDS: Levofloxacin/Dextrose 5%-Water 500 MG in Premix Bag 1 BAG IV SCH (19:24)
[2020-09-22] MEDS: Pantoprazole 40 MG Tab.CR PO SCH ×2 (06:22→16:30)
[2020-09-22] MEDS: Levothyroxine 88 MCG Tab PO SCH (06:23)
[2020-09-22] MEDS: Multivitamins,Therapeutic Tab PO SCH (08:31)
[2020-09-22] MEDS: Cholecalciferol (Vitamin D3) 5,000 UNIT Cap PO SCH (08:31)
[2020-09-22] MEDS: Sertraline 25 MG Tab PO SCH (08:32)
[2020-09-22] MEDS: Zinc Sulfate 220 MG Cap PO SCH (08:32)
--- NOTE | 2020-09-22 09:25 | CR ---
Chest: Portable supine view of the chest was obtained. Comparison: Prior chest x-ray of 09/20/20. Patchy areas of increased lung markings are seen on both sides of the chest. Findings are stable from most recent chest x-ray. Heart size and mediastinum are unchanged. Bony structures are also unchanged. Impression: 1. Stable chest x-ray from prior exam. Nothing acute is seen. Diagnostic code #3
--- NOTE | 2020-09-22 09:35 | PCM.PN ---
- General Info Date of Service: 09/22/20 Admission Dx/Problem (Free Text): Admission Diagnosis/Problem Admission Diagnosis/Problem Respiratory failure with hypoxia Subjective Update: Yessi reports feeling better today than yesterday. Still complains of pain to her left ankle and states physical therapy worked with your yesterday and this did seem to help a little. She states she is feeling less short of breath today however she does have crackles noted on the right posteriorly and in the left lower lobe. O2 needs have increased to 6 L where she is satting 90%. She needs strong encouragement to use her incentive spirometer hourly as she states whenever she does that she coughs and she does not like this. Functional Status: Reports: Pain Controlled, Tolerating Diet, Ambulating (With therapies), Urinating (States she is incontinent at times), Incentive Spirometry (Needs encouragement to use hourly.) - Review of Systems General: Reports: No Symptoms, Appetite HEENT: Reports: No Symptoms Pulmonary: Reports: Shortness of Breath, Cough. Denies: Pleuritic Chest Pain, Sputum, Wheezing Cardiovascular: Reports: Dyspnea on Exertion, Edema (2+ pitting to bilateral lower extremities). Denies: Chest Pain, Palpitations Gastrointestinal: Reports: No Symptoms Genitourinary: Reports: Incontinence Musculoskeletal: Reports: Other (Left ankle pain) Skin: Reports: No Symptoms Neurological: Reports: No Symptoms Psychiatric: Reports: No Symptoms - Patient Data Vitals - Most Recent: Last Vital Signs Temp 97.9 F 09/22/20 08:13 Pulse 78 09/22/20 08:13 Resp 16 09/22/20 08:13 BP 129/67 09/22/20 08:28 Pulse Ox 90 L 09/22/20 08:14 Weight - Most Recent: 193 lb 11.2 oz I&O - Last 24 Hours: Intake & Output 09/21/20 09/22/20 09/22/20 22:59 06:59 14:59 Intake Total 1340 300 Balance 1340 300 Lab Results Last 24 Hours: Laboratory Results - last 24 hr 09/21/20 09/21/20 09/21/20 Range/Units 06:26 06:29 11:27 WBC (3.98-10.04) K/mm3 RBC (3.98-5.22) M/mm3 Hgb (11.2-15.7) gm/dl Hct (34.1-44.9) % MCV (79.4-94.8) fl MCH (25.6-32.2) pg MCHC (32.2-35.5) g/dl RDW Std Deviation (36.4-46.3) fL Plt Count (182-369) K/mm3 MPV (9.4-12.3) fl Neut % (Auto) (34.0-71.1) % Lymph % (Auto) (19.3-51.7) % [place] % (Auto) (4.7-12.5) % Eos % (Auto) (0.7-5.8) Baso % (Auto) (0.1-1.2) % Neut # (Auto) (1.56-6.13) K/mm3 Lymph # (Auto) (1.18-3.74) K/mm3 [place] # (Auto) (0.24-0.36) K/mm3 Eos # (Auto) (0.04-0.36) K/mm3 Baso # (Auto) (0.01-0.08) K/mm3 Manual Slide Review PT (9.7-12.0) SECONDS INR Sodium (136-145) mEq/L Potassium (3.5-5.1) mEq/L Chloride (98-107) mEq/L Carbon Dioxide (21-32) mEq/L Anion Gap (5-15) BUN (7-18) mg/dL Creatinine (0.55-1.02) mg/dL Est Cr Clr Drug Dosing mL/min Estimated GFR (MDRD) (>60) mL/min BUN/Creatinine Ratio (14-18) Glucose (83-115) mg/dL POC Glucose 111 H 102 (83-110) mg/dL Calcium (8.5-10.1) mg/dL Magnesium (1.8-2.4) mg/dl Total Bilirubin (0.2-1.0) mg/dL AST (15-37) U/L ALT (14-59) U/L Alkaline Phosphatase (46-116) U/L C-Reactive Protein 2.7 H* (<1.0) mg/dL Total Protein (6.4-8.2) g/dl Albumin (3.4-5.0) g/dl Globulin gm/dL Albumin/Globulin Ratio (1-2) 09/21/20 09/21/20 09/22/20 Range/Units 16:59 20:53 04:40 WBC 11.17 H (3.98-10.04) K/mm3 RBC 3.71 L (3.98-5.22) M/mm3 Hgb 10.7 L (11.2-15.7) gm/dl Hct 35.9 (34.1-44.9) % MCV 96.8 H (79.4-94.8) fl MCH 28.8 (25.6-32.2) pg MCHC 29.8 L (32.2-35.5) g/dl RDW Std Deviation 56.9 H (36.4-46.3) fL Plt Count 379 H (182-369) K/mm3 MPV 10.1 (9.4-12.3) fl Neut % (Auto) 75.1 H (34.0-71.1) % Lymph % (Auto) 14.7 L (19.3-51.7) % [place] % (Auto) 8.9 (4.7-12.5) % Eos % (Auto) 0.3 L (0.7-5.8) Baso % (Auto) 0.2 (0.1-1.2) % Neut # (Auto) 8.40 H (1.56-6.13) K/mm3 Lymph # (Auto) 1.64 (1.18-3.74) K/mm3 [place] # (Auto) 0.99 H (0.24-0.36) K/mm3 Eos # (Auto) 0.03 L (0.04-0.36) K/mm3 Baso # (Auto) 0.02 (0.01-0.08) K/mm3 Manual Slide Review Abnormal smear PT (9.7-12.0) SECONDS INR Sodium (136-145) mEq/L Potassium (3.5-5.1) mEq/L Chloride (98-107) mEq/L Carbon Dioxide (21-32) mEq/L Anion Gap (5-15) BUN (7-18) mg/dL Creatinine (0.55-1.02) mg/dL Est Cr Clr Drug Dosing mL/min Estimated GFR (MDRD) (>60) mL/min BUN/Creatinine Ratio (14-18) Glucose (83-115) mg/dL POC Glucose 163 H 166 H (83-110) mg/dL Calcium (8.5-10.1) mg/dL Magnesium (1.8-2.4) mg/dl Total Bilirubin (0.2-1.0) mg/dL AST (15-37) U/L ALT (14-59) U/L Alkaline Phosphatase (46-116) U/L C-Reactive Protein (<1.0) mg/dL Total Protein (6.4-8.2) g/dl Albumin (3.4-5.0) g/dl Globulin gm/dL Albumin/Globulin Ratio (1-2) 09/22/20 09/22/20 09/22/20 Range/Units 04:40 04:40 04:40 WBC (3.98-10.04) K/mm3 RBC (3.98-5.22) M/mm3 Hgb (11.2-15.7) gm/dl Hct (34.1-44.9) % MCV (79.4-94.8) fl MCH (25.6-32.2) pg MCHC (32.2-35.5) g/dl RDW Std Deviation (36.4-46.3) fL Plt Count (182-369) K/mm3 MPV (9.4-12.3) fl Neut % (Auto) (34.0-71.1) % Lymph % (Auto) (19.3-51.7) % [place] % (Auto) (4.7-12.5) % Eos % (Auto) (0.7-5.8) Baso % (Auto) (0.1-1.2) % Neut # (Auto) (1.56-6.13) K/mm3 Lymph # (Auto) (1.18-3.74) K/mm3 [place] # (Auto) (0.24-0.36) K/mm3 Eos # (Auto) (0.04-0.36) K/mm3 Baso # (Auto) (0.01-0.08) K/mm3 Manual Slide Review PT 13.9 H (9.7-12.0) SECONDS INR 1.31 Sodium 140 (136-145) mEq/L Potassium 4.1 (3.5-5.1) mEq/L Chloride 104 (98-107) mEq/L Carbon Dioxide 29 (21-32) mEq/L Anion Gap 11.1 (5-15) BUN 13 (7-18) mg/dL Creatinine 0.6 (0.55-1.02) mg/dL Est Cr Clr Drug Dosing 65.65 mL/min Estimated GFR (MDRD) > 60 (>60) mL/min BUN/Creatinine Ratio 21.7 H (14-18) Glucose 118 H (83-115) mg/dL POC Glucose (83-110) mg/dL Calcium 8.7 (8.5-10.1) mg/dL Magnesium (1.8-2.4) mg/dl Total Bilirubin 0.2 (0.2-1.0) mg/dL AST 18 (15-37) U/L ALT 36 (14-59) U/L Alkaline Phosphatase 68 (46-116) U/L C-Reactive Protein 1.6 H* (<1.0) mg/dL Total Protein 5.8 L (6.4-8.2) g/dl Albumin 2.3 L (3.4-5.0) g/dl Globulin 3.5 gm/dL Albumin/Globulin Ratio 0.7 L (1-2) 09/22/20 09/22/20 Range/Units 04:40 06:09 WBC (3.98-10.04) K/mm3 RBC (3.98-5.22) M/mm3 Hgb (11.2-15.7) gm/dl Hct (34.1-44.9) % MCV (79.4-94.8) fl MCH (25.6-32.2) pg MCHC (32.2-35.5) g/dl RDW Std Deviation (36.4-46.3) fL Plt Count (182-369) K/mm3 MPV (9.4-12.3) fl Neut % (Auto) (34.0-71.1) % Lymph % (Auto) (19.3-51.7) % [place] % (Auto) (4.7-12.5) % Eos % (Auto) (0.7-5.8) Baso % (Auto) (0.1-1.2) % Neut # (Auto) (1.56-6.13) K/mm3 Lymph # (Auto) (1.18-3.74) K/mm3 [place] # (Auto) (0.24-0.36) K/mm3 Eos # (Auto) (0.04-0.36) K/mm3 Baso # (Auto) (0.01-0.08) K/mm3 Manual Slide Review PT (9.7-12.0) SECONDS INR Sodium (136-145) mEq/L Potassium (3.5-5.1) mEq/L Chloride (98-107) mEq/L Carbon Dioxide (21-32) mEq/L Anion Gap (5-15) BUN (7-18) mg/dL Creatinine (0.55-1.02) mg/dL Est Cr Clr Drug Dosing mL/min Estimated GFR (MDRD) (>60) mL/min BUN/Creatinine Ratio (14-18) Glucose (83-115) mg/dL POC Glucose 120 H (83-110) mg/dL Calcium (8.5-10.1) mg/dL Magnesium 2.3 (1.8-2.4) mg/dl Total Bilirubin (0.2-1.0) mg/dL AST (15-37) U/L ALT (14-59) U/L Alkaline Phosphatase (46-116) U/L C-Reactive Protein (<1.0) mg/dL Total Protein (6.4-8.2) g/dl Albumin (3.4-5.0) g/dl Globulin gm/dL Albumin/Globulin Ratio (1-2) Sea Results Last 24 Hours: Microbiology 09/20/20 18:38 Aerobic Blood Culture - Preliminary Blood - Venous - Lab Draw NO GROWTH AFTER 1 DAY Anaerobic Blood Culture - Preliminary NO GROWTH AFTER 1 DAY 09/20/20 18:32 Aerobic Blood Culture - Preliminary Blood - Venous NO GROWTH AFTER 1 DAY Anaerobic Blood Culture - Preliminary NO GROWTH AFTER 1 DAY 09/20/20 17:20 Urine Culture - Preliminary Urine, Clean Catch Gram Positive Cocci Med Orders - Current: Current Medications Acetaminophen (Tylenol) 650 mg PO Q6H PRN PRN Reason: Pain (Mild 1-3)/fever Albuterol (Proventil Hfa) 0 gm INH Q2H PRN PRN Reason: SOB/Wheezing Albuterol/Ipratropium (Duoneb 3.0-0.5 Mg/3 Ml) 3 ml NEB Q4H PRN PRN Reason: Shortness Of Breath/wheezing Benzonatate (Tessalon Perles) 100 mg PO QID PRN PRN Reason: Cough Calcium Carbonate/Glycine (Tums) 500 mg PO TID PRN PRN Reason: Heartburn Cholecalciferol (Vitamin D3) 5,000 unit PO DAILY [facility] Last Admin: 09/22/20 08:31 Dose: 5,000 unit Documented by: Docusate Sodium (Colace) 100 mg PO BID PRN PRN Reason: Constipation Hydralazine HCl (Apresoline) 10 mg IVPUSH Q4H PRN PRN Reason: Hypertension Promethazine HCl 12.5 mg/ (Sodium Chloride) 50.5 mls @ 100 mls/hr IV Q6H PRN PRN Reason: Nausea/Vomiting Levofloxacin/Dextrose 500 mg/ (Premix) 100 mls @ 100 mls/hr IV Q24H [facility] Last Admin: 09/21/20 19:24 Dose: 100 mls/hr Documented by: Insulin Human Lispro (Humalog) 0 unit SUBCUT QIDACANDBED [facility]; Protocol Last Admin: 09/22/20 06:28 Dose: Not Given Documented by: Levothyroxine Sodium (Synthroid) 88 mcg PO ACBREAKFAST [facility] Last Admin: 09/22/20 06:23 Dose: 88 mcg Documented by: Multivitamins (Thera) 1 each PO DAILY [facility] Last Admin: 09/22/20 08:31 Dose: 1 each Documented by: Oxycodone HCl (Oxycodone) 5 mg PO Q6H PRN PRN Reason: Pain (moderate 4-6) Pantoprazole Sodium (Protonix) 40 mg PO BIDAC [facility] Last Admin: 09/22/20 06:22 Dose: 40 mg Documented by: Ketotifen 1 Drop 0 each EYEBOTH BID PRN PRN Reason: Itching Sertraline HCl (Zoloft) 25 mg PO DAILY [facility] Last Admin: 09/22/20 08:32 Dose: 25 mg Documented by: Warfarin Sodium (Pharmacy To Dose - Warfarin) 1 dose .XX ASDIRECTED PRN PRN Reason: RX TO DOSE WARFARIN Warfarin Sodium (Coumadin) 8 mg PO QPM [facility] Stop: 09/22/20 18:01 Zinc Sulfate (Zincate) 220 mg PO DAILY [facility] Last Admin: 09/22/20 08:32 Dose: 220 mg Documented by: Discontinued Medications Dexamethasone (Dexamethasone) 6 mg PO DAILY [facility] Last Admin: 09/21/20 10:36 Dose: 6 mg Documented by: Ceftriaxone Sodium 1 gm/ (Sodium Chloride) 100 mls @ 200 mls/hr IV Q24H [facility] Ceftriaxone Sodium 2 gm/ (Sodium Chloride) 100 mls @ 200 mls/hr IV Q24H [facility] Last Admin: 09/20/20 18:44 Dose: 200 mls/hr Documented by: Levothyroxine Sodium (Synthroid) 88 mcg PO DAILY [facility] Morphine Sulfate (Morphine) 2 mg IVPUSH Q4H PRN PRN Reason: Pain (severe 7-10) Stop: 09/21/20 18:44 Non-Formulary Medication (Ketotifen) 1 drop EYEBOTH BID PRN PRN Reason: Itching Non-Formulary Medication (Multivitamin [Daily Multiple Vitamin]) 1 each PO DAILY [facility] Non-Formulary Medication (Pantoprazole Sodium [Pantoprazole Sodium]) 40 mg PO BID [facility] Last Admin: 09/21/20 02:54 Dose: Not Given Documented by: Warfarin Sodium (Coumadin) 6 mg PO QPM [facility] Warfarin Sodium (Coumadin) 6 mg PO QPM [facility] Stop: 09/21/20 18:01 Last Admin: 09/21/20 17:40 Dose: 6 mg Documented by: - Exam Quality Assessment: Supplemental Oxygen (Liters per nasal cannula), DVT Prophylaxis (On Coumadin and Lovenox) General: Alert, Oriented, Mild Distress HEENT: Pupils Equal, Pupils Reactive, Mucous Membr. Moist/[place] Neck: Supple Lungs: Crackles (On the right and on the left lower lobe). No: Clear to Auscultation, Normal Respiratory Effort Cardiovascular: Regular Rate, Regular Rhythm GI/Abdominal Exam: Normal Bowel Sounds, Soft, Non-Tender, No Distention (Female) Exam: Deferred Back Exam: Normal Inspection, Full Range of Motion Extremities: Normal Inspection, Normal Range of Motion, Normal Capillary Refill. No: Non-Tender (Left ankle pain with ambulation), No Pedal Edema (2+ pitting edema to the bilateral lower extremities) Peripheral Pulses: 2+: Radial (L), Radial (R), Dorsalis Pedis (L), Dorsalis Pedis (R) Skin: Warm, Dry, Intact Neurological: No New Focal Deficit Psy/Mental Status: Alert, Normal Affect, Normal Mood Sepsis Event Note - Evaluation Sepsis Screening Result: No Definite Risk - Focused Exam Vital Signs: Vital Signs Temp Pulse Resp BP Pulse Ox Pulse Ox 09/22/20 08:28 129/67 09/22/20 08:14 90 L 09/22/20 08:13 97.9 F 78 16 151/75 H 96 09/22/20 08:02 86 L 09/22/20 04:00 94 L 09/22/20 03:16 97.3 F 78 16 114/60 94 L 09/22/20 00:01 120/74 09/21/20 23:50 96 09/21/20 23:09 97.7 F 66 16 98 - Problem List & Annotations (1) Pneumonia SNOMED Code(s): 742760427 Code(s): J18.9 - PNEUMONIA, UNSPECIFIED ORGANISM Status: Acute Priority: High Current Visit: Yes Qualifiers: Pneumonia type: due to unspecified organism Laterality: bilateral Lung location: lower lobe of lung Qualified Code(s): J18.9 - Pneumonia, unspecified organism (2) Subtherapeutic anticoagulation SNOMED Code(s): 374292745 Code(s): Z51.81 - ENCOUNTER FOR THERAPEUTIC DRUG LEVEL MONITORING; Z79.01 - GETTERING OPERATOR (CURRENT) USE OF ANTICOAGULANTS Status: Acute Priority: High Current Visit: Yes (3) Chronic anticoagulation SNOMED Code(s): 961325619 Code(s): Z79.01 - GETTERING OPERATOR (CURRENT) USE OF ANTICOAGULANTS Status: Chronic Priority: Medium Current Visit: Yes (4) History of DVT (deep vein thrombosis) SNOMED Code(s): 706230195 Code(s): Z86.718 - PERSONAL HISTORY OF OTHER VENOUS THROMBOSIS AND EMBOLISM Status: Chronic Priority: Medium Current Visit: Yes (5) History of COVID-19 SNOMED Code(s): 225855989963267431, 562754728244594113 Code(s): Z86.16 - PERSONAL HISTORY OF COVID-19 Status: Chronic Priority: Medium Current Visit: No (6) History of GI bleed SNOMED Code(s): 312861892 Code(s): Z87.19 - PERSONAL HISTORY OF OTHER DISEASES OF THE DIGESTIVE SYSTEM Status: Chronic Priority: Low Current Visit: No (7) Hypothyroidism SNOMED Code(s): 68643997 Code(s): E03.9 - HYPOTHYROIDISM, UNSPECIFIED Status: Chronic Priority: Low Current Visit: No Qualifiers: Hypothyroidism type: unspecified Qualified Code(s): E03.9 - Hypothyroidism, unspecified - Problem List Review Problem List Initiated/Reviewed/Updated: Yes - Assessment Assessment:: 09/22/20 -increasing O2 needs. 6 L per nasal cannula satting at 90 percent -2+ pitting edema noted to bilateral lower extremities -Chest x-ray radiologist interpretation: Stable chest x-ray from prior exam. Nothing acute is appreciated. -Obtaining old echo report -Questioning exacerbation of congestive heart failure -Continues to complain of left ankle pain. PT treating the patient. Tylenol for pain control. -Encourage incentive spirometer and flutter valve every 1 hour while awake. - Plan Plan:: Assessment and plan: Pneumonia Chronic hypoxic respiratory failure History of COVID-19 infection Elevated D-Dimer Repeat COVID-19 screen was positive WBC 12.29-->8.23-->9.83 CRP 2.1-->2.7-->1.6 D-Dimer 0.81 CXR - Blood culture pending Sputum culture O2 as needed - baseline 2L MRSA screen negative Considering hx of treatment, started on levaquin 500mg iv daily Will stop dexamethasone as patient is very stable Inhalers Q48 D-Dimer CRP Airborne/contact isolation IS/Acapella RT consultation PT/OT Zinc/vitamin D supplementation Hx of left leg DVT Chronic anticoagulation (warfarin) Subtheraputic INR INR 2.11-->2.05-->1.71-->1.3 Continue warfarin- pharmacy to dose INR daily History of GI bleed CBC daily Home pantoprazole HGB 11.4-->10.7 Hypothyroidism Continue home Synthroid 88mcg daily HTN Continue home meds hydralazine prn Leg swelling, b/l Right ankle pain Pain with weightbearing to right ankle Pain with palpation to right lateral aspect of ankle - denies recent trauma Has been on anticoagulation Doppler in the ER - negative for DVT, right. BNP 283 Intake and output Right portable (due to isolation) ankle x-ray Vitamin D deficiency Vitamin D 25.7 Start daily supplementation Bacteriuria Patient reports increased urge incontinence UA negative in ED Urine culture sent - growing gram positive cocci--> on Levaquin Monitor GI and DVT prophylaxis: Home PPI and warfarin
[2020-09-22] MEDS: Enoxaparin 80 MG/0.8 ML Syringe SUBCUT SCH ×2 (12:26→22:20)
[2020-09-22] MEDS ORDERED: Warfarin 4 MG Tab PO SCH (18:00)
[2020-09-22] MEDS: Levofloxacin/Dextrose 5%-Water 500 MG in Premix Bag 1 BAG IV SCH (18:42)
[2020-09-22] MEDS ORDERED: Carboxymethylcellulose Sodium 1% Ophth Gel 15 ML Bottle EYEBOTH PRN (19:10)
[2020-09-23] MEDS: Levothyroxine 88 MCG Tab PO SCH (06:04)
[2020-09-23] MEDS: Pantoprazole 40 MG Tab.CR PO SCH (06:04)
[2020-09-23] MEDS: Cholecalciferol (Vitamin D3) 5,000 UNIT Cap PO SCH (08:24)
[2020-09-23] MEDS: Zinc Sulfate 220 MG Cap PO SCH (08:24)
[2020-09-23] MEDS: Multivitamins,Therapeutic Tab PO SCH (08:24)
[2020-09-23] MEDS: Sertraline 25 MG Tab PO SCH (08:24)
--- NOTE | 2020-09-23 09:43 | PCM.DCSUM1 ---
Discharge Summary - Hospital Course HPI Initial Comments: Pt is a 80yof with a hx of HTN and GI bleeding who presented to the ER today due to leg swelling. Pt is a poor history and most information is obtained from ER Dr. Almendarez. Pt had a positive Covid 19 test months ago. She has been having sob and on home oxygen 2L since the time when the covid 19 was diagnosed. She also complains of cough. She was admitted into [facility] in [place] due to Covid 19. During that hospitalization, she had a episode of GI bleeding that she needed transfusion. For the reason, she was started on warfarin instead of Eliquis. In the ER, CXR showed pneumonia. US Doppler negative for right leg PE. Diagnosis: Stroke: No - Discharge Data Discharge Date: 09/23/20 (Admit date: 09/20/20) Discharge Disposition: DC/Tfer to SNF 03 Condition: Good - Referral to Home Health Primary Care Physician: Liu Mars MD - Discharge Diagnosis/Problem(s) (1) History of DVT (deep vein thrombosis) SNOMED Code(s): 630461774 ICD Code: Z86.718 - PERSONAL HISTORY OF OTHER VENOUS THROMBOSIS AND EMBOLISM Status: Chronic Priority: Medium Current Visit: Yes (2) Chronic anticoagulation SNOMED Code(s): 468963495 ICD Code: Z79.01 - FPC (CURRENT) USE OF ANTICOAGULANTS Status: Chronic Priority: Medium Current Visit: Yes (3) Vitamin D deficiency SNOMED Code(s): 18577704 ICD Code: E55.9 - VITAMIN D DEFICIENCY, UNSPECIFIED Status: Acute Priority: High Current Visit: Yes (4) Edema of both legs SNOMED Code(s): 474221123, 37392850, 827504412 ICD Code: R60.0 - LOCALIZED EDEMA Status: Acute Priority: High Current Visit: Yes (5) Pneumonia SNOMED Code(s): 437700183 ICD Code: J18.9 - PNEUMONIA, UNSPECIFIED ORGANISM Status: Acute Priority: High Current Visit: Yes Qualifiers: Pneumonia type: due to unspecified organism Laterality: bilateral Lung location: lower lobe of lung Qualified Code(s): J18.9 - Pneumonia, unspecified organism (6) History of COVID-19 SNOMED Code(s): 443927881180709636, 008318005271718442 ICD Code: Z86.16 - PERSONAL HISTORY OF COVID-19 Status: Chronic Priority: Medium Current Visit: No (7) History of GI bleed SNOMED Code(s): 395247371 ICD Code: Z87.19 - PERSONAL HISTORY OF OTHER DISEASES OF THE DIGESTIVE SYSTEM Status: Chronic Priority: Low Current Visit: No (8) Hypertension SNOMED Code(s): 15937943 ICD Code: I10 - ESSENTIAL (PRIMARY) HYPERTENSION Status: Chronic Priority: Medium Current Visit: No Qualifiers: Hypertension type: unspecified Qualified Code(s): I10 - Essential (primary) hypertension (9) Hypothyroidism SNOMED Code(s): 58314479 ICD Code: E03.9 - HYPOTHYROIDISM, UNSPECIFIED Status: Chronic Priority: Low Current Visit: No Qualifiers: Hypothyroidism type: unspecified Qualified Code(s): E03.9 - Hypothyroidism, unspecified (10) Bacteriuria SNOMED Code(s): 03827115 ICD Code: R82.71 - BACTERIURIA Status: Acute Priority: Medium Current Visit: Yes (11) Subtherapeutic anticoagulation SNOMED Code(s): 200116430 ICD Code: Z51.81 - ENCOUNTER FOR THERAPEUTIC DRUG LEVEL MONITORING; Z79.01 - FPC (CURRENT) USE OF ANTICOAGULANTS Status: Acute Priority: High Current Visit: Yes (12) Elevated d-dimer SNOMED Code(s): 324106524 ICD Code: R79.89 - OTHER SPECIFIED ABNORMAL FINDINGS OF BLOOD CHEMISTRY Status: Chronic Priority: Medium Current Visit: Yes (13) Acute right ankle pain SNOMED Code(s): 50631366185549 ICD Code: M25.571 - PAIN IN RIGHT ANKLE AND JOINTS OF RIGHT FOOT Status: Acute Priority: High Current Visit: Yes - Patient Summary/Data Consults: Consultations 09/20/20 18:46 OT Evaluation and Treatment [CONS] Routine PT Evaluation and Treatment [CONS] Routine 09/21/20 08:03 Consult to Case Management/Hand Collator [CONS] Routine Respiratory Care Assess and Treatment [CONS] Routine Labs Pending at D/C: None Recommended Follow-up Testing/Procedures: Follow-up with primary care provider within 5-7 days of discharge, sooner if needed. Hospital Course: This is a 80-year-old female who was admitted to the hospital due to right leg swelling and pneumonia. Patient was started on Rocephin in the ED and switched to Levaquin on the floor. She has a history of recent COVID-19 infection and recent left lower extremity DVT. Patient is very well-known to this service. While hospitalized for COVID-19 patient developed a GI bleed. Because of this recent bleed she had been started on warfarin. Throughout her stay she remained on 2 L of oxygen. Her dyspnea did mildly wax and wane, which is expected given her recent Covid diagnosis. She was retested for Covid prior to admission, even though this is not in the guidelines currently and was therefore placed on airborne and contact isolation. She was initially started on dexamethasone 6 mg p.o. and this was discontinued as the patient remained very stable from a respiratory status. She was utilizing I-S and Acapella. WBC and CRP did trend downward. Blood cultures remain negative. There was an error noted in the chart in which it was stated the patient was requiring 6 L of oxygen for a brief period. This was erroneously charted on the wrong patient. Unfortunately patient did miss a dose of warfarin when she presented to the emergency room and her INR was noted to drop. She was therefore started on 80 mg twice daily Lovenox, which is 1 mg/kg for warfarin bridging. She will be discharged on Lovenox with a plan to recheck her INR on 09/26/2020, with results to her primary care provider. We will place an order for 1 single 7.5 mg dose of warfarin today and then patient should resume resume home dosing of her warfarin thereafter. This plan was discussed with pharmacy. While here patient was also complaining of right ankle pain. Ankle x-ray was obtained showing calcaneus spurs and osteopenia but nothing acute. Her leg swelling brian stable. Right lower extremity Doppler ultrasound was obtained and was negative in the emergency room. Vitamin D was obtained and was low at 25.7. Patient was started on p.o. supplementation. Urine did grow out 30-40,000 CFU's of Enterococcus Faecalis. Blood cultures remain negative. She was discharged today back to [facility]. She was sent a prescription for 1 7.5 mg dose of warfarin which she should take today as noted above. She was sent 2 more days of 500 mg p.o. Levaquin with her first dose today. She was also sent a prescription for 80 mg twice daily Lovenox for warfarin bridging. She should recheck her INR on 09/26/2020 as mentioned prior. Continue home oxygen at 2 L or to keep saturations above 90%. Recommend continuing PT/OT at SNF. She was instructed to follow-up with her primary care provider within 5 to 7 days of discharge or sooner if needed. She was instructed to continue to utilize her incentive spirometer and Acapella for 1-2 more weeks or until symptoms resolve. She was instructed to return the emergency room or contact her primary care provider should symptoms return or worsen. - Patient Instructions Diet: Usual Diet as Tolerated Activity: As Tolerated Driving: Do Not Drive Showering/Bathing: May Shower Notify Provider of: Fever, Increased Pain, Nausea and/or Vomiting Other/Special Instructions: Follow-up with primary care provider within 5-7 days of discharge, sooner if needed. You were prescribed an antibiotic for your pneumonia. You will take your first dose tonight (09/23/20) at around 9pm. Your INR was low here indicating your blood is not thin enough with your prior DVTs. You will need to continue your lovenox injection BIDs until your INR is theraputic. You should take the bigger (7.5mg) dose of warfarin today (single dose sent to pharmacy) and then resume your normal dosing. Re-check INR on 09/26/20 with results to PCP. If INR is theraputic then BID lovenox can be discontinued. Resume home medications asd drected. Continue to utilize your incentive spirometry (clear blue device you inhale through) and acapella (green tube you blow though) for 1-2 weeks or until symptoms resolve. Continue oxygen at 2L or titrate to keep saturations >90%. Continue PT/OT at SNF. Should symptoms return or worsen contact primary care provider or return to the Emergency Department. - Discharge Plan *PRESCRIPTION DRUG MONITORING PROGRAM REVIEWED*: No *COPY OF PRESCRIPTION DRUG MONITORING REPORT IN PATIENT ANGUS: No Prescriptions/Med Rec: Warfarin Sodium [Jantoven] 7.5 mg PO ONETIME #1 tablet levoFLOXacin [Levaquin] 500 mg PO DAILY #2 tab Enoxaparin [Lovenox] 80 mg SUBCUT Q12H #10 syringe Cholecalciferol (Vitamin D3) [Vitamin D3] 5,000 unit PO DAILY #20 cap Home Medications: Home Meds Levothyroxine [Synthroid] 88 mcg PO DAILY 04/24/20 [History] Acetaminophen [Non-Aspirin Extra Strength] 1,000 mg PO BEDTIME PRN 09/02/20 [History] Benzonatate [Tessalon Perle] 100 mg PO QID PRN 09/02/20 [History] Betamethasone Valerate [Valisone 0.1% Crm] 0 gm TOP DAILY PRN 09/02/20 [History] Calcium Carbonate [Tums] 500 mg PO TID PRN 09/02/20 [History] Docusate Sodium 100 mg PO BID 09/02/20 [History] Ketotifen [Ketotifen 0.025% Ophth Soln] 1 drop EYEBOTH BID PRN 09/02/20 [History] Multivitamin [Daily Multiple Vitamin] 1 each PO DAILY 09/02/20 [History] Pantoprazole Sodium 40 mg PO BID 09/02/20 [History] Sertraline [Zoloft] 25 mg PO DAILY 09/02/20 [History] Triamcinolone Acetonide [Triamcinolone Acetonide 0.1% Crm] 1 applic TOP BID PRN 09/05/20 [History] Sodium Chloride [Saline Nasal [place]] 1 spray NS QID PRN 09/20/20 [History] Warfarin Sodium [Jantoven] 5 mg PO ASDIRECTED 09/20/20 [History] Warfarin Sodium [Jantoven] 7.5 mg PO ASDIRECTED 09/20/20 [History] Cholecalciferol (Vitamin D3) [Vitamin D3] 5,000 unit PO DAILY #20 cap 09/23/20 [Rx] Enoxaparin [Lovenox] 80 mg SUBCUT Q12H #10 syringe 09/23/20 [Rx] Warfarin Sodium [Jantoven] 7.5 mg PO ONETIME #1 tablet 09/23/20 [Rx] levoFLOXacin [Levaquin] 500 mg PO DAILY #2 tab 09/23/20 [Rx] Oxygen Therapy Mode: Nasal Cannula Oxygen Flow Rate (L/min): 2 Maintain SpO2% greater than: 90 Patient Handouts: COVID-19: What Your Test Results Mean - CDC, COVID-19 Frequently Asked Questions, 10 Things You Can Do to Manage Your COVID-19 Symptoms at Home - CDC, Home Oxygen Use, Adult, Deep Vein Thrombosis, Venous Thromboembolism Prevention, Community-Acquired Pneumonia, Adult, [id number], Sepsis, Self Care, Adult Forms: ED Department Discharge Referrals: Liu Mars MD [Primary Care Provider] - 09/27/20 1:00 pm (you will be seen on Saturday by Dr. Mars at [facility]-they are adding on a hospital discharge follow up onto the previous appointment you already had.) - Discharge Summary/Plan Comment DC Time >30 min.: Yes (45 mins ) - General Info Date of Service: 09/23/20 Admission Dx/Problem (Free Text: Admission Diagnosis/Problem Admission Diagnosis/Problem Respiratory failure with hypoxia Functional Status: Reports: Pain Controlled, Tolerating Diet, Ambulating, Urinating, Incentive Spirometry, Other (Acapella ). Denies: New Symptoms - Review of Systems General: Reports: Weakness (improving ). Denies: Fever, Fatigue, Malaise, Chills HEENT: Reports: No Symptoms. Denies: Headaches, Sore Throat Pulmonary: Reports: Shortness of Breath (baseline ), Cough (baseline ). Denies: Sputum Cardiovascular: Reports: Dyspnea on Exertion (baseline ). Denies: Chest Pain, Palpitations Gastrointestinal: Reports: No Symptoms. Denies: Abdominal Pain, Constipation, Diarrhea, Nausea, Vomiting Genitourinary: Reports: No Symptoms. Denies: Pain Musculoskeletal: Reports: No Symptoms Skin: Reports: No Symptoms. Denies: Cyanosis Neurological: Reports: Difficulty Walking (baseline ), Gait Disturbance (baseline ). Denies: Confusion Psychiatric: Reports: No Symptoms - Patient Data Vitals - Most Recent: Last Vital Signs Temp 97.9 F 09/23/20 07:40 Pulse 76 09/23/20 07:40 Resp 16 09/23/20 07:40 BP 115/54 L 09/23/20 07:40 Pulse Ox 95 09/23/20 09:04 Weight - Most Recent: 194 lb 8 oz I&O - Last 24 hours: Intake & Output 09/22/20 09/23/20 09/23/20 22:59 06:59 14:59 Intake Total 3140 325 Balance 3140 325 Lab Results - Last 24 hrs: Laboratory Results - last 24 hr 09/21/20 09/22/20 09/22/20 Range/Units 06:26 11:04 16:34 WBC (3.98-10.04) K/mm3 RBC (3.98-5.22) M/mm3 Hgb (11.2-15.7) gm/dl Hct (34.1-44.9) % MCV (79.4-94.8) fl MCH (25.6-32.2) pg MCHC (32.2-35.5) g/dl RDW Std Deviation (36.4-46.3) fL Plt Count (182-369) K/mm3 MPV (9.4-12.3) fl Neut % (Auto) (34.0-71.1) % Lymph % (Auto) (19.3-51.7) % Simpson % (Auto) (4.7-12.5) % Eos % (Auto) (0.7-5.8) Baso % (Auto) (0.1-1.2) % Neut # (Auto) (1.56-6.13) K/mm3 Lymph # (Auto) (1.18-3.74) K/mm3 Simpson # (Auto) (0.24-0.36) K/mm3 Eos # (Auto) (0.04-0.36) K/mm3 Baso # (Auto) (0.01-0.08) K/mm3 Manual Slide Review PT (9.7-12.0) SECONDS INR D-Dimer, Quantitative (0.19-0.50) mg/L Sodium (136-145) mEq/L Potassium (3.5-5.1) mEq/L Chloride (98-107) mEq/L Carbon Dioxide (21-32) mEq/L Anion Gap (5-15) BUN (7-18) mg/dL Creatinine (0.55-1.02) mg/dL Est Cr Clr Drug Dosing mL/min Estimated GFR (MDRD) (>60) mL/min BUN/Creatinine Ratio (14-18) Glucose (83-115) mg/dL POC Glucose 121 H 108 (83-110) mg/dL Calcium (8.5-10.1) mg/dL Total Bilirubin (0.2-1.0) mg/dL AST (15-37) U/L ALT (14-59) U/L Alkaline Phosphatase (46-116) U/L Total Protein (6.4-8.2) g/dl Albumin (3.4-5.0) g/dl Globulin gm/dL Albumin/Globulin Ratio (1-2) Procalcitonin 0.05 ng/mL 09/22/20 09/23/20 09/23/20 Range/Units 20:47 05:14 05:57 WBC 9.05 (3.98-10.04) K/mm3 RBC 3.69 L (3.98-5.22) M/mm3 Hgb 10.8 L (11.2-15.7) gm/dl Hct 36.0 (34.1-44.9) % MCV 97.6 H (79.4-94.8) fl MCH 29.3 (25.6-32.2) pg MCHC 30.0 L (32.2-35.5) g/dl RDW Std Deviation 59.7 H (36.4-46.3) fL Plt Count 389 H (182-369) K/mm3 MPV 10.2 (9.4-12.3) fl Neut % (Auto) 56.0 (34.0-71.1) % Lymph % (Auto) 22.9 (19.3-51.7) % Simpson % (Auto) 12.7 H (4.7-12.5) % Eos % (Auto) 6.0 H (0.7-5.8) Baso % (Auto) 0.9 (0.1-1.2) % Neut # (Auto) 5.07 (1.56-6.13) K/mm3 Lymph # (Auto) 2.07 (1.18-3.74) K/mm3 Simpson # (Auto) 1.15 H (0.24-0.36) K/mm3 Eos # (Auto) 0.54 H (0.04-0.36) K/mm3 Baso # (Auto) 0.08 (0.01-0.08) K/mm3 Manual Slide Review Abnormal smear PT (9.7-12.0) SECONDS INR D-Dimer, Quantitative (0.19-0.50) mg/L Sodium (136-145) mEq/L Potassium (3.5-5.1) mEq/L Chloride (98-107) mEq/L Carbon Dioxide (21-32) mEq/L Anion Gap (5-15) BUN (7-18) mg/dL Creatinine (0.55-1.02) mg/dL Est Cr Clr Drug Dosing mL/min Estimated GFR (MDRD) (>60) mL/min BUN/Creatinine Ratio (14-18) Glucose (83-115) mg/dL POC Glucose 107 95 (83-110) mg/dL Calcium (8.5-10.1) mg/dL Total Bilirubin (0.2-1.0) mg/dL AST (15-37) U/L ALT (14-59) U/L Alkaline Phosphatase (46-116) U/L Total Protein (6.4-8.2) g/dl Albumin (3.4-5.0) g/dl Globulin gm/dL Albumin/Globulin Ratio (1-2) Procalcitonin ng/mL 09/23/20 09/23/20 09/23/20 Range/Units 05:57 05:57 05:57 WBC (3.98-10.04) K/mm3 RBC (3.98-5.22) M/mm3 Hgb (11.2-15.7) gm/dl Hct (34.1-44.9) % MCV (79.4-94.8) fl MCH (25.6-32.2) pg MCHC (32.2-35.5) g/dl RDW Std Deviation (36.4-46.3) fL Plt Count (182-369) K/mm3 MPV (9.4-12.3) fl Neut % (Auto) (34.0-71.1) % Lymph % (Auto) (19.3-51.7) % Simpson % (Auto) (4.7-12.5) % Eos % (Auto) (0.7-5.8) Baso % (Auto) (0.1-1.2) % Neut # (Auto) (1.56-6.13) K/mm3 Lymph # (Auto) (1.18-3.74) K/mm3 Simpson # (Auto) (0.24-0.36) K/mm3 Eos # (Auto) (0.04-0.36) K/mm3 Baso # (Auto) (0.01-0.08) K/mm3 Manual Slide Review PT 14.8 H (9.7-12.0) SECONDS INR 1.39 D-Dimer, Quantitative 0.78 H (0.19-0.50) mg/L Sodium 141 (136-145) mEq/L Potassium 4.0 (3.5-5.1) mEq/L Chloride 104 (98-107) mEq/L Carbon Dioxide 30 (21-32) mEq/L Anion Gap 11.0 (5-15) BUN 17 (7-18) mg/dL Creatinine 0.6 (0.55-1.02) mg/dL Est Cr Clr Drug Dosing 65.65 mL/min Estimated GFR (MDRD) > 60 (>60) mL/min BUN/Creatinine Ratio 28.3 H (14-18) Glucose 85 (83-115) mg/dL POC Glucose (83-110) mg/dL Calcium 8.6 (8.5-10.1) mg/dL Total Bilirubin 0.2 (0.2-1.0) mg/dL AST 21 (15-37) U/L ALT 40 (14-59) U/L Alkaline Phosphatase 67 (46-116) U/L Total Protein 5.8 L (6.4-8.2) g/dl Albumin 2.3 L (3.4-5.0) g/dl Globulin 3.5 gm/dL Albumin/Globulin Ratio 0.7 L (1-2) Procalcitonin ng/mL [facility] Results - Last 24 hrs: Microbiology 09/20/20 18:38 Aerobic Blood Culture - Preliminary Blood - Venous - Lab Draw NO GROWTH AFTER 2 DAYS Anaerobic Blood Culture - Preliminary NO GROWTH AFTER 2 DAYS 09/20/20 18:32 Aerobic Blood Culture - Preliminary Blood - Venous NO GROWTH AFTER 2 DAYS Anaerobic Blood Culture - Preliminary NO GROWTH AFTER 2 DAYS 09/20/20 17:20 Urine Culture - Final Urine, Clean Catch Enterococcus Faecalis Med Orders - Current: Current Medications Acetaminophen (Tylenol) 650 mg PO Q6H PRN PRN Reason: Pain (Mild 1-3)/fever Albuterol (Proventil Hfa) 0 gm INH Q2H PRN PRN Reason: SOB/Wheezing Albuterol/Ipratropium (Duoneb 3.0-0.5 Mg/3 Ml) 3 ml NEB Q4H PRN PRN Reason: Shortness Of Breath/wheezing Artificial Tears (Refresh Liquigel 1%) 0 ml EYEBOTH QID PRN PRN Reason: Dry Eyes Last Admin: 09/22/20 20:52 Dose: 1 drop Documented by: Benzonatate (Tessalon Perles) 100 mg PO QID PRN PRN Reason: Cough Calcium Carbonate/Glycine (Tums) 500 mg PO TID PRN PRN Reason: Heartburn Cholecalciferol (Vitamin D3) 5,000 unit PO DAILY [facility] Last Admin: 09/23/20 08:24 Dose: 5,000 unit Documented by: Docusate Sodium (Colace) 100 mg PO BID PRN PRN Reason: Constipation Enoxaparin Sodium (Lovenox) 80 mg SUBCUT Q12H [facility] Last Admin: 09/22/20 22:20 Dose: 80 mg Documented by: Hydralazine HCl (Apresoline) 10 mg IVPUSH Q4H PRN PRN Reason: Hypertension Promethazine HCl 12.5 mg/ (Sodium Chloride) 50.5 mls @ 100 mls/hr IV Q6H PRN PRN Reason: Nausea/Vomiting Levofloxacin/Dextrose 500 mg/ (Premix) 100 mls @ 100 mls/hr IV Q24H [facility] Last Admin: 09/22/20 18:42 Dose: 100 mls/hr Documented by: Insulin Human Lispro (Humalog) 0 unit SUBCUT QIDACANDBED [facility]; Protocol Last Admin: 09/23/20 06:38 Dose: Not Given Documented by: Levothyroxine Sodium (Synthroid) 88 mcg PO ACBREAKFAST [facility] Last Admin: 09/23/20 06:04 Dose: 88 mcg Documented by: Multivitamins (Thera) 1 each PO DAILY [facility] Last Admin: 09/23/20 08:24 Dose: 1 each Documented by: Oxycodone HCl (Oxycodone) 5 mg PO Q6H PRN PRN Reason: Pain (moderate 4-6) Last Admin: 09/22/20 13:26 Dose: 5 mg Documented by: Pantoprazole Sodium (Protonix) 40 mg PO BIDAC [facility] Last Admin: 09/23/20 06:04 Dose: 40 mg Documented by: Ketotifen 1 Drop 0 each EYEBOTH BID PRN PRN Reason: Itching Sertraline HCl (Zoloft) 25 mg PO DAILY [facility] Last Admin: 09/23/20 08:24 Dose: 25 mg Documented by: Warfarin Sodium (Pharmacy To Dose - Warfarin) 1 dose .XX ASDIRECTED PRN PRN Reason: RX TO DOSE WARFARIN Zinc Sulfate (Zincate) 220 mg PO DAILY [facility] Last Admin: 09/23/20 08:24 Dose: 220 mg Documented by: Discontinued Medications Dexamethasone (Dexamethasone) 6 mg PO DAILY [facility] Last Admin: 09/21/20 10:36 Dose: 6 mg Documented by: Ceftriaxone Sodium 1 gm/ (Sodium Chloride) 100 mls @ 200 mls/hr IV Q24H [facility] Ceftriaxone Sodium 2 gm/ (Sodium Chloride) 100 mls @ 200 mls/hr IV Q24H [facility] Last Admin: 09/20/20 18:44 Dose: 200 mls/hr Documented by: Levothyroxine Sodium (Synthroid) 88 mcg PO DAILY [facility] Morphine Sulfate (Morphine) 2 mg IVPUSH Q4H PRN PRN Reason: Pain (severe 7-10) Stop: 09/21/20 18:44 Non-Formulary Medication (Ketotifen) 1 drop EYEBOTH BID PRN PRN Reason: Itching Non-Formulary Medication (Multivitamin [Daily Multiple Vitamin]) 1 each PO DAILY [facility] Non-Formulary Medication (Pantoprazole Sodium [Pantoprazole Sodium]) 40 mg PO BID [facility] Last Admin: 09/21/20 02:54 Dose: Not Given Documented by: Warfarin Sodium (Coumadin) 6 mg PO QPM [facility] Warfarin Sodium (Coumadin) 6 mg PO QPM [facility] Stop: 09/21/20 18:01 Last Admin: 09/21/20 17:40 Dose: 6 mg Documented by: Warfarin Sodium (Coumadin) 8 mg PO QPM [facility] Stop: 09/22/20 18:01 Last Admin: 09/22/20 18:35 Dose: 8 mg Documented by: - Exam Quality Assessment: Reports: Supplemental Oxygen (2L ), DVT Prophylaxis. Denies: Urine Catheter General: Reports: Alert, Oriented, Cooperative, No Acute Distress HEENT: Reports: Pupils Equal, Pupils Reactive, Mucous Membr. Moist/[place] Neck: Reports: Supple, Trachea Midline Lungs: Reports: Normal Respiratory Effort, Decreased Breath Sounds. Denies: Wheezing Cardiovascular: Reports: Regular Rate, Regular Rhythm GI/Abdominal Exam: Normal Bowel Sounds, Soft, Non-Tender, No Distention (Female) Exam: Deferred Rectal (Female) Exam: Deferred Back Exam: Reports: Normal Inspection, Full Range of Motion Extremities: Normal Inspection, Normal Range of Motion, Non-Tender, No Pedal Edema, Normal Capillary Refill Skin: Reports: Warm, Dry, Intact Neurological: Reports: No New Focal Deficit Psy/Mental Status: Reports: Alert, Normal Affect, Normal Mood
[2020-09-23] MEDS: Enoxaparin 80 MG/0.8 ML Syringe SUBCUT SCH (11:44)
[2020-09-23] MEDS ORDERED: Warfarin 7.5 MG Tab PO SCH (18:00)
== END 2020-09-23 12:50 | DRG 177 ==
LOC: JD.ED 14:22 → JD.MS 18:40
PROVIDERS: ADMIT Family Medicine; ATTEND Family Medicine
DX: U07.1 COVID-19 (principal); R60.9 Edema, unspecified; J18.9 Pneumonia, unspecified organism; J96.01 Acute respiratory failure with hypoxia; Z86.718 Personal history of other venous thrombosis and embolism; R32 Unspecified urinary incontinence; Z79.01 Long term (current) use of anticoagulants; Z91.048 Other nonmedicinal substance allergy status; M19.90 Unspecified osteoarthritis, unspecified site; F41.9 Anxiety disorder, unspecified; E55.9 Vitamin D deficiency, unspecified; Z86.16 Personal history of COVID-19; Z87.19 Personal history of other diseases of the digestive system; I10 Essential (primary) hypertension; E03.9 Hypothyroidism, unspecified; Z51.81 Encounter for therapeutic drug level monitoring; M25.571 Pain in right ankle and joints of right foot; Z88.1 Allergy status to other antibiotic agents; Z88.0 Allergy status to penicillin; Z91.041 Radiographic dye allergy status; Z79.890 Hormone replacement therapy; Z79.899 Other long term (current) drug therapy; H54.7 Unspecified visual loss; Z90.49 Acquired absence of other specified parts of digestive tract; Z98.49 Cataract extraction status, unspecified eye; E66.9 Obesity, unspecified; Z99.81 Dependence on supplemental oxygen; R82.71 Bacteriuria
CPT/HCPCS: 36415; 71045; 80053; 81001; 83880; 84484; 85025; 85610; 87040 ×2; 87086; 87088; 87186; 93005; 93971; 99285; U0002; 73610-26-RT; 73610-RT; 82306; 82962; 83735; 84145; 85379; 86140; 87641; 94667; 94668; 94761; 97110-GO; 97110-GP; 97162-GP; 97165-GO; 97530-GO; 97530-GP; 97535-GO; 99222; 99233; 99239; A9270-GY; J0696; J1650; J1815-GY; J1956; J8540

== ENCOUNTER 2021-03-03 15:37 | Inpatient (IN) | payer MEDICARE, MEDICAID ==
--- NOTE | 2021-03-03 16:28 | EDM.PDOC ---
ED HPI GENERAL MEDICAL PROBLEM - General Chief Complaint: Genitourinary Problem Stated Complaint: [facility] Time Seen by Provider: 03/03/21 15:48 Source of Information: Reports: Patient, EMS, Residential Records, RN Notes Reviewed - History of Present Illness INITIAL COMMENTS - FREE TEXT/NARRATIVE: 80 yr old female has been having some voiding sx and "difficulty voiding" off and on for several days. Is reported to have had fever at some point [employer]. Has had a prod cough. some lower abd pain and pressure. Hx of prior appy and GB surgery. Resident of the [place]. Hx of prior covid. - Related Data Allergies Allergy/AdvReac Type Severity Reaction Status Date / Time adhesive Allergy Severe Rash Verified 03/03/21 15:48 Iodine and Iodide Containing Allergy Severe Itching Verified 03/03/21 15:48 Produc levofloxacin [From Levaquin] Allergy Severe Rash Verified 03/03/21 15:48 Penicillins AdvReac Severe Diarrhea Verified 03/03/21 15:48 Home Meds: Home Meds Levothyroxine [Synthroid] 88 mcg PO DAILY 04/24/20 [History] Acetaminophen [Non-Aspirin Extra Strength] 1,000 mg PO BEDTIME PRN 09/02/20 [His tory] Benzonatate [Tessalon Perle] 100 mg PO QID PRN 09/02/20 [History] Betamethasone Valerate [Valisone 0.1% Crm] 0 gm TOP Q8H PRN 09/02/20 [History] Calcium Carbonate [Tums] 500 mg PO TID PRN 09/02/20 [History] Docusate Sodium 100 mg PO BID 09/02/20 [History] Ketotifen [Ketotifen 0.025% Ophth Soln] 1 drop EYEBOTH BID PRN 09/02/20 [History] Multivitamin [Daily Multiple Vitamin] 1 each PO DAILY 09/02/20 [History] Sertraline [Zoloft] 25 mg PO DAILY 09/02/20 [History] Triamcinolone Acetonide [Triamcinolone Acetonide 0.1% Crm] 1 applic TOP BID PRN 09/05/20 [History] Sodium Chloride [Saline Nasal [place]] 1 spray NS QID PRN 09/20/20 [History] Cholecalciferol (Vitamin D3) [Vitamin D3] 5,000 unit PO DAILY 03/03/21 [History] Famotidine [Pepcid] 20 mg PO DAILY 03/03/21 [History] Fluticasone Propionate [Flovent] 2 inh INH DAILY 03/03/21 [History] PEG 400/Hypromellose/Glycerin [Artificial Tears Drops] 1 drop OP Q4H PRN 03/03/21 [History] polyethylene glycoL 3350 [Polyethylene Glycol 3350] 17 gm PO DAILY PRN 03/03/21 [History] Past Medical History HEENT History: Reports: Impaired Vision, Other (See Below) Other HEENT History: glasses for reading only. Cardiovascular History: Reports: Blood Clots/VTE/DVT, Hypertension Respiratory History: Reports: Pneumonia, Recurrent, Other (See Below) Other Respiratory History: 2 liters nasal cannula pt wears at home since having COVID July 2020 Gastrointestinal History: Reports: Chronic Diarrhea, GI Bleed Genitourinary History: Reports: Urinary Incontinence, UTI, Recurrent [employer] CYT[employer]Y History: Reports: Musculoskeletal History: Reports: Osteoarthritis Other Musculoskeletal History: knee pain, rotator cuff but not surgery Neurological History: Reports: Headaches, Chronic Psychiatric History: Reports: Anxiety Endocrine/Metabolic History: Reports: Hypothyroidism, Obesity/BMI 30+ Other Endocrine/Metabolic History: thyroid issues Dermatologic History: Reports: Other (See Below) Other Dermatologic History: skin fungus, can only use baby soap or ivory soap - Infectious Disease History Infectious Disease History: Reports: Chicken Pox, Influenza, Measles, Mumps, Novel Coronavirus - Past Surgical History HEENT Surgical History: Reports: Cataract Surgery, Tonsillectomy GI Surgical History: Reports: Appendectomy, Cholecystectomy, Hernia, Abdominal Social & Family History - Family History Family Medical History: No Pertinent Family History HEENT: Reports: None Cardiac: Reports: Hypertension - Tobacco Use Tobacco Use Status *Q: Never Tobacco User - Caffeine Use Caffeine Use: Reports: None - Recreational Drug Use Recreational Drug Use: No - Living Situation & Occupation Living situation: Reports: , with Spouse Occupation: Retired ED ROS GENERAL - Review of Systems Review Of Systems: See Below Constitutional: Reports: Fever HEENT: Denies: Throat Pain Respiratory: Reports: Cough, Sputum. Denies: Shortness of Breath Cardiovascular: Denies: Chest Pain GI/Abdominal: Reports: Abdominal Pain (mild pressure sensation). Denies: Diarrhea, Nausea, Vomiting Musculoskeletal: Reports: No Symptoms Skin: Reports: No Symptoms Neurological: Reports: Dizziness ED EXAM, GENERAL - Physical Exam Exam: See Below General Appearance: Alert, No Apparent Distress Throat/Mouth: Normal Inspection Head: Atraumatic Neck: Supple, Other (No JVD) Respiratory/Chest: No Respiratory Distress. No: Rales, Rhonchi, Wheezing Cardiovascular: Regular Rate, Rhythm GI/Abdominal: Soft, Non-Tender, Other (moderately obese). No: Guarding Back Exam: No: CVA Tenderness (L), CVA Tenderness (R) Extremities: Pedal Edema (very mild bilat) Neurological: No Motor/Sensory Deficits Skin Exam: Warm, Dry, Normal Color Course - Vital Signs Last Recorded V/S: Last Vital Signs Temp 97.5 F 03/03/21 15:42 Pulse 102 H 03/03/21 15:42 Resp 24 H 03/03/21 15:42 BP 133/63 03/03/21 15:42 Pulse Ox 94 L 03/03/21 15:42 - Orders/Labs/Meds Orders: Active Orders 24 hr Category Date Time Status EKG 12 Lead [EKG Documentation Completion] [RC] ROUTINE Care 03/03/21 15:53 Active Chest 1V Frontal [CR] Stat Exams 03/03/21 16:06 Taken LACTATE SEPSIS W/ REFLEX [CHEM] Stat Lab 03/03/21 17:55 Received Benzonatate [Tessalon Perles] Med 03/03/21 17:58 Ordered 100 mg PO QID PRN Betamethasone Valerate [Valisone 0.1% Crm] Med 03/03/21 17:58 Ordered 8 gm TOP Q8H PRN Calcium Carbonate [Tums] Med 03/03/21 17:58 Ordered 500 mg PO TID PRN Cholecalciferol (Vitamin D3) [Vitamin D3] Med 03/04/21 09:00 Ordered 5,000 unit PO DAILY Famotidine [Pepcid] Med 03/04/21 09:00 Ordered 20 mg PO DAILY Fluticasone Propionate [Flovent] Med 03/04/21 09:00 Ordered 2 inh INH DAILY Ketotifen Med 03/03/21 17:58 Ordered 1 drop EYEBOTH BID PRN Levothyroxine [Synthroid] Med 03/04/21 09:00 Ordered 88 mcg PO DAILY PEG 400/Hypromellose/Glycerin [Artificial Tears Drops] Med 03/03/21 17:58 Ordered 1 drop OP Q4H PRN Sertraline [Zoloft] Med 03/04/21 09:00 Ordered 25 mg PO DAILY Sodium Chloride 0.9% [Normal Saline] 1,000 ml Med 03/03/21 17:45 Active IV ONETIME cefTRIAXone [Rocephin] 2 gm Med 03/03/21 17:43 Active Sodium Chloride 0.9% [Normal Saline] 100 ml IV ONETIME polyethylene glycoL 3350 [MiraLAX] Med 03/03/21 17:58 Ordered 17 gm PO DAILY PRN Medication Orders Benzonatate (Benzonatate 100 Mg Cap) 100 mg PO QID PRN PRN Reason: Cough Betamethasone Valerate (Betamethasone Valerate 0.1% Crm 15 Gm Tube) 8 gm TOP Q8H PRN PRN Reason: Itching Calcium Carbonate/Glycine (Calcium Carbonate 500 Mg Tab.Chew) 500 mg PO TID PRN PRN Reason: Heartburn Cholecalciferol (Cholecalciferol (Vitamin D3) 5,000 Unit Cap) 5,000 unit PO DAILY NAILA Famotidine (Famotidine 20 Mg Tab) 20 mg PO DAILY NAILA Ceftriaxone Sodium 2 gm/ (Sodium Chloride) 100 mls @ 200 mls/hr IV ONETIME ONE Stop: 03/03/21 18:12 Last Admin: 03/03/21 18:01 Dose: 200 mls/hr Documented by: JCARLOS Sodium Chloride (Normal Saline) 1,000 mls @ 999 mls/hr IV ONETIME NAILA Last Admin: 03/03/21 18:01 Dose: 999 mls/hr Documented by: JCARLOS Levothyroxine Sodium (Levothyroxine 88 Mcg Tab) 88 mcg PO DAILY NAILA Non-Formulary Medication (Fluticasone Propionate [Flovent]) 2 inh INH DAILY NAILA Non-Formulary Medication (Ketotifen) 1 drop EYEBOTH BID PRN PRN Reason: Itching Non-Formulary Medication (Peg 400/Hypromellose/Glycerin [Artificial Tears Drops]) 1 drop OP Q4H PRN PRN Reason: Dry Eyes Polyethylene Glycol (Polyethylene Glycol 3350 Powder 17 Gm Packet) 17 gm PO DAILY PRN PRN Reason: Constipation Sertraline HCl (Sertraline 25 Mg Tab) 25 mg PO DAILY NAILA Labs: Laboratory Tests 03/03/21 03/03/21 03/03/21 Range/Units 15:45 15:45 15:45 WBC 16.11 H (3.98-10.04) K/mm3 RBC 4.39 (3.98-5.22) M/mm3 Hgb 12.0 (11.2-15.7) gm/dl Hct 38.9 (34.1-44.9) % MCV 88.6 D (79.4-94.8) fl MCH 27.3 (25.6-32.2) pg MCHC 30.8 L (32.2-35.5) g/dl RDW Std Deviation 60.1 H (36.4-46.3) fL Plt Count 240 D (182-369) K/mm3 MPV 10.6 (9.4-12.3) fl Neut % (Auto) 72.9 H (34.0-71.1) % Lymph % (Auto) 10.1 L (19.3-51.7) % [place] % (Auto) 16.4 H (4.7-12.5) % Eos % (Auto) 0.1 L (0.7-5.8) Baso % (Auto) 0.1 (0.1-1.2) % Neut # (Auto) 11.73 H (1.56-6.13) K/mm3 Lymph # (Auto) 1.63 (1.18-3.74) K/mm3 [place] # (Auto) 2.65 H (0.24-0.36) K/mm3 Eos # (Auto) 0.02 L (0.04-0.36) K/mm3 Baso # (Auto) 0.02 (0.01-0.08) K/mm3 Manual Slide Review Abnormal smear Sodium 136 (136-145) mEq/L Potassium 4.3 (3.5-5.1) mEq/L Chloride 99 (98-107) mEq/L Carbon Dioxide 32 (21-32) mEq/L Anion Gap 9.3 (5-15) BUN 27 H (7-18) mg/dL Creatinine 1.3 H (0.55-1.02) mg/dL Est Cr Clr Drug Dosing 30.30 mL/min Estimated GFR (MDRD) 40 (>60) mL/min BUN/Creatinine Ratio 20.8 H (14-18) Glucose 101 H (70-99) mg/dL Calcium 8.9 (8.5-10.1) mg/dL Total Bilirubin 0.7 (0.2-1.0) mg/dL AST 47 H (15-37) U/L ALT 62 H (14-59) U/L Alkaline Phosphatase 108 (46-116) U/L C-Reactive Protein 33.1 H* (<1.0) mg/dL Total Protein 7.1 (6.4-8.2) g/dl Albumin 2.6 L (3.4-5.0) g/dl Globulin 4.5 gm/dL Albumin/Globulin Ratio 0.6 L (1-2) Meds: Medications Generic Name Dose Route Start Last Admin Trade Name Freq PRN Reason Stop Dose Admin Benzonatate 100 mg 03/03/21 17:58 Benzonatate 100 Mg Cap PO QID PRN Cough Betamethasone Valerate 8 gm 03/03/21 17:58 Betamethasone Valerate 0.1% Crm 15 Gm Tube TOP Q8H PRN Itching Calcium Carbonate/Glycine 500 mg 03/03/21 17:58 Calcium Carbonate 500 Mg Tab.Chew PO TID PRN Heartburn Cholecalciferol 5,000 unit 03/04/21 09:00 Cholecalciferol (Vitamin D3) 5,000 Unit Cap PO DAILY NAILA Famotidine 20 mg 03/04/21 09:00 Famotidine 20 Mg Tab PO DAILY NAILA Ceftriaxone Sodium 2 gm/ 100 mls @ 200 mls/hr 03/03/21 17:43 03/03/21 18:01 Sodium Chloride IV 03/03/21 18:12 200 mls/hr ONETIME ONE Administration Sodium Chloride 1,000 mls @ 999 mls/hr 03/03/21 17:45 03/03/21 18:01 Normal Saline IV 999 mls/hr ONETIME NAILA Administration Levothyroxine Sodium 88 mcg 03/04/21 09:00 Levothyroxine 88 Mcg Tab PO DAILY NAILA Non-Formulary Medication 2 inh 03/04/21 09:00 Fluticasone Propionate [Flovent] INH DAILY NAILA Non-Formulary Medication 1 drop 03/03/21 17:58 Ketotifen EYEBOTH BID PRN Itching Non-Formulary Medication 1 drop 03/03/21 17:58 Peg 400/Hypromellose/Glycerin [Artificial Tears Drops] OP Q4H PRN Dry Eyes Polyethylene Glycol 17 gm 03/03/21 17:58 Polyethylene Glycol 3350 Powder 17 Gm Packet PO DAILY PRN Constipation Sertraline HCl 25 mg 03/04/21 09:00 Sertraline 25 Mg Tab PO DAILY NAILA - Re-Assessments/Exams Free Text/Narrative Re-Assessment/Exam: 03/03/21 18:03 Ua sent from [place] earlier today is pos. for infection. WBC and CRP both quite elevated. Will put in order for lactic acid. Urine culture ordered. Rocephin 2 grams IV ordered. IV fluid ordered. Will admit for further treatment. Dr Goodman has seen patient and will write admission orders. CXR did not show obvious infiltrate. Departure - Departure Time of Disposition: 17:50 Disposition: Admitted As Inpatient 67 Condition: Fair Clinical Impression: UTI, Urinary tract infectious disease - Discharge Information Referrals: PCP,None [Ordering Only Provider] - Forms: ED Department Discharge Sepsis Event Note (ED) - Evaluation Sepsis Screening Result: Possible Sepsis Risk - Focused Exam Vital Signs: Vital Signs Temp Pulse Resp BP Pulse Ox 03/03/21 15:42 97.5 F 102 H 24 H 133/63 94 L ED Communication - Discussed Case With (1) Discussed Case With (1): Admitting Provider (Dr Goodman, decision to admit at about 17:45) - My Orders Last 24 Hours: My Active Orders 03/03/21 15:53 EKG 12 Lead [EKG Documentation Completion] [RC] ROUTINE 03/03/21 16:06 Chest 1V Frontal [CR] Stat 03/03/21 17:43 cefTRIAXone [Rocephin] 2 gm Sodium Chloride 0.9% [Normal Saline] 100 ml IV ONETIME 03/03/21 17:45 Sodium Chloride 0.9% [Normal Saline] 1,000 ml IV ONETIME 03/03/21 17:55 LACTATE SEPSIS W/ REFLEX [CHEM] Stat - Assessment/Plan Last 24 Hours: My Active Orders 03/03/21 15:53 EKG 12 Lead [EKG Documentation Completion] [RC] ROUTINE 03/03/21 16:06 Chest 1V Frontal [CR] Stat 03/03/21 17:43 cefTRIAXone [Rocephin] 2 gm Sodium Chloride 0.9% [Normal Saline] 100 ml IV ONETIME 03/03/21 17:45 Sodium Chloride 0.9% [Normal Saline] 1,000 ml IV ONETIME 03/03/21 17:55 LACTATE SEPSIS W/ REFLEX [CHEM] Stat
[2021-03-03] MEDS ORDERED: cefTRIAXone 2 GM in Sodium Chloride 0.9% 100 ML IV ONE (17:43)
[2021-03-03] MEDS ORDERED: Sodium Chloride 0.9% 1,000 ML IV SCH (17:45)
[2021-03-03] MEDS ORDERED: Carboxymethylcellulose Sodium 1% Ophth Gel 15 ML Bottle EYEBOTH PRN (17:58)
[2021-03-03] MEDS ORDERED: Polyethylene Glycol 3350 Powder 17 GM Packet PO PRN (17:58)
[2021-03-03] MEDS ORDERED: Calcium Carbonate 500 MG Tab.Chew PO PRN (17:58)
[2021-03-03] MEDS ORDERED: KETOTIFEN EYEBOTH PRN (17:58)
[2021-03-03] MEDS ORDERED: Betamethasone Valerate 0.1% Crm 15 GM Tube TOP PRN (17:58)
[2021-03-03] MEDS ORDERED: oxyCODONE 5 MG Tab PO PRN (18:01)
[2021-03-03] MEDS ORDERED: Ondansetron 4 MG Tab.DIS PO PRN (18:01)
--- NOTE | 2021-03-03 18:08 | PCM.HP.2 ---
H&P History of Present Illness - General Date of Service: 03/04/21 Admit Problem/Dx: Admission Diagnosis/Problem Admission Diagnosis/Problem Urinary tract infection with fever Source of Information: Patient History Limitations: Reports: No Limitations - History of Present Illness Initial Comments - Free Text/Narative: The patient is a 80-year-old lady who is a resident of [facility] was sent to the emergency department via ambulance out of report for high fever. The patient was afebrile upon presentation to the emergency department. The patient is somewhat of a poor historian and had vague abdominal symptoms. She reportedly had symptoms and difficulty being able to void. And she had reported some lower abdominal pain. Patient herself has denied any fever or chills. She has had no nausea or vomiting. The patient also has been using oxygen at 2 L vi a nasal cannula post Covid in 2019. The patient had a prior urinalysis obtained which was positive for UTI. Patient had received 2 g of Rocephin in the ER. Patient also has a history of deep venous thrombosis and had previously been on anticoagulation but is not now. The patient has no other complaints today. Onset of Symptoms: Reports: Gradual Duration of Symptoms: Reports: Day(s): Location: Reports: Abdomen Quality: Reports: Ache, Stabbing Severity: Mild Improves with: Reports: None Worsens with: Reports: None Context: Denies: Sick Contact Associated Symptoms: Reports: Weakness - Related Data Allergies/Adverse Reactions: Allergies Allergy/AdvReac Type Severity Reaction Status Date / Time adhesive Allergy Intermediate Rash Verified 03/04/21 08:59 levofloxacin [From Levaquin] Allergy Intermediate Rash Verified 03/04/21 08:59 Iodine and Iodide Containing Allergy Mild Itching Verified 03/04/21 08:59 Produc Penicillins AdvReac Mild Diarrhea Verified 03/04/21 08:59 Home Medications: Home Meds Levothyroxine [Synthroid] 88 mcg PO DAILY 04/24/20 [History] Acetaminophen [Non-Aspirin Extra Strength] 1,000 mg PO BEDTIME PRN 09/02/20 [History] Benzonatate [Tessalon Perle] 100 mg PO QID PRN 09/02/20 [History] Betamethasone Valerate [Valisone 0.1% Crm] 1 applic TOP Q8H PRN 09/02/20 [History] Calcium Carbonate [Tums] 500 mg PO TID PRN 09/02/20 [History] Docusate Sodium 100 mg PO BID 09/02/20 [History] Ketotifen [Ketotifen 0.025% Ophth Soln] 1 drop EYEBOTH BID PRN 09/02/20 [History] Multivitamin [Daily Multiple Vitamin] 1 each PO DAILY 09/02/20 [History] Sertraline [Zoloft] 25 mg PO DAILY 09/02/20 [History] Triamcinolone Acetonide [Triamcinolone Acetonide 0.1% Crm] 1 applic TOP BID PRN 09/05/20 [History] Sodium Chloride [Saline Nasal [place]] 1 spray NS QID PRN 09/20/20 [History] Cholecalciferol (Vitamin D3) [Vitamin D3] 5,000 unit PO DAILY 03/03/21 [History] Famotidine [Pepcid] 20 mg PO DAILY 03/03/21 [History] Fluticasone Propionate [Flovent] 2 inh INH DAILY 03/03/21 [History] PEG 400/Hypromellose/Glycerin [Artificial Tears Drops] 1 drop OP Q4H PRN 03/03/21 [History] polyethylene glycoL 3350 [Polyethylene Glycol 3350] 17 gm PO DAILY PRN 03/03/21 [History] Past Medical History HEENT History: Reports: Impaired Vision, Other (See Below) Other HEENT History: glasses for reading only. 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: Musculoskeletal History: Reports: Osteoarthritis Other Musculoskeletal History: knee pain, rotator cuff but not surgery Neurological History: Reports: Headaches, Chronic Psychiatric History: Reports: Anxiety Endocrine/Metabolic History: Reports: Hypothyroidism, Obesity/BMI 30+ Other Endocrine/Metabolic History: thyroid issues Dermatologic History: Reports: Other (See Below) Other Dermatologic History: skin fungus, can only use baby soap or ivory soap - Infectious Disease History Infectious Disease History: Reports: Chicken Pox, Influenza, Measles, Mumps, Novel Coronavirus - Past Surgical History HEENT Surgical History: Reports: Cataract Surgery, Tonsillectomy GI Surgical History: Reports: Appendectomy, Cholecystectomy, Hernia, Abdominal Social & Family History - Family History Family Medical History: No Pertinent Family History HEENT: Reports: None Cardiac: Reports: Hypertension - Tobacco Use Tobacco Use Status *Q: Never Tobacco User - Caffeine Use Caffeine Use: Reports: None - Recreational Drug Use Recreational Drug Use: No - Living Situation & Occupation Living situation: Reports: , with Spouse, Extended Care Facility Occupation: Retired H&P Review of Systems - Review of Systems: Review Of Systems: See Below General: Reports: Fever, Malaise. Denies: Chills HEENT: Reports: No Symptoms Pulmonary: Reports: No Symptoms Cardiovascular: Reports: No Symptoms Gastrointestinal: Reports: Abdominal Pain Genitourinary: Reports: Dysuria Musculoskeletal: Reports: No Symptoms Skin: Reports: No Symptoms Psychiatric: Reports: No Symptoms Neurological: Reports: No Symptoms Hematologic/Lymphatic: Reports: No Symptoms Immunologic: Reports: No Symptoms Exam - Exam Exam: See Below - Vital Signs Vital Signs: Last Vital Signs Temp 36.4 C 03/03/21 15:42 Pulse 102 H 03/03/21 15:42 Resp 24 H 03/03/21 15:42 BP 133/63 03/03/21 15:42 Pulse Ox 94 L 03/03/21 15:42 Weight: 98.157 kg - Exam Quality Assessment: Supplemental Oxygen. No: DVT Prophylaxis General: Alert, Oriented, Cooperative HEENT: Conjunctiva Clear, EACs Clear, EOMI, Hearing Intact, Mucosa Moist & [place], PERRLA Neck: Supple, Trachea Midline Lungs: Clear to Auscultation, Normal Respiratory Effort Cardiovascular: Regular Rate, Regular Rhythm, Normal S1, Normal S2 GI/Abdominal Exam: Normal Bowel Sounds, Soft, No Distention, Tender (Suprapubic area). No: Guarding, Rigid, Rebound (Female) Exam: Deferred Rectal (Female) Exam: Deferred Back Exam: Normal Inspection, Full Range of Motion Extremities: Normal Inspection, No Pedal Edema Skin: Warm, Dry, Intact Neurological: Normal Speech. No: Normal Gait (Uses walker) Neuro Extensive - Mental Status: Alert, Oriented x3 Psychiatric: Alert, Normal Affect, Normal Mood - Patient Data Lab Results Last 24 hrs: Laboratory Results - last 24 hr 03/03/21 03/03/21 03/03/21 Range/Units 15:45 15:45 15:45 WBC 16.11 H (3.98-10.04) K/mm3 RBC 4.39 (3.98-5.22) M/mm3 Hgb 12.0 (11.2-15.7) gm/dl Hct 38.9 (34.1-44.9) % MCV 88.6 D (79.4-94.8) fl MCH 27.3 (25.6-32.2) pg MCHC 30.8 L (32.2-35.5) g/dl RDW Std Deviation 60.1 H (36.4-46.3) fL Plt Count 240 D (182-369) K/mm3 MPV 10.6 (9.4-12.3) fl Neut % (Auto) 72.9 H (34.0-71.1) % Lymph % (Auto) 10.1 L (19.3-51.7) % [place] % (Auto) 16.4 H (4.7-12.5) % Eos % (Auto) 0.1 L (0.7-5.8) Baso % (Auto) 0.1 (0.1-1.2) % Neut # (Auto) 11.73 H (1.56-6.13) K/mm3 Lymph # (Auto) 1.63 (1.18-3.74) K/mm3 [place] # (Auto) 2.65 H (0.24-0.36) K/mm3 Eos # (Auto) 0.02 L (0.04-0.36) K/mm3 Baso # (Auto) 0.02 (0.01-0.08) K/mm3 Manual Slide Review Abnormal smear Sodium 136 (136-145) mEq/L Potassium 4.3 (3.5-5.1) mEq/L Chloride 99 (98-107) mEq/L Carbon Dioxide 32 (21-32) mEq/L Anion Gap 9.3 (5-15) BUN 27 H (7-18) mg/dL Creatinine 1.3 H (0.55-1.02) mg/dL Est Cr Clr Drug Dosing 30.30 mL/min Estimated GFR (MDRD) 40 (>60) mL/min BUN/Creatinine Ratio 20.8 H (14-18) Glucose 101 H (70-99) mg/dL Calcium 8.9 (8.5-10.1) mg/dL Total Bilirubin 0.7 (0.2-1.0) mg/dL AST 47 H (15-37) U/L ALT 62 H (14-59) U/L Alkaline Phosphatase 108 (46-116) U/L C-Reactive Protein 33.1 H* (<1.0) mg/dL Total Protein 7.1 (6.4-8.2) g/dl Albumin 2.6 L (3.4-5.0) g/dl Globulin 4.5 gm/dL Albumin/Globulin Ratio 0.6 L (1-2) Result Diagrams: 03/04/21 06:00 03/04/21 06:00 Sepsis Event Note - Evaluation Sepsis Screening Result: No Definite Risk - Focused Exam Vital Signs: Vital Signs Temp Pulse Resp BP Pulse Ox 03/03/21 15:42 36.4 C 102 H 24 H 133/63 94 L - Problem List (1) UTI, Urinary tract infectious disease SNOMED Code(s): 35465620 ICD Code: N39.0 - URINARY TRACT INFECTION, SITE NOT SPECIFIED Status: Acute Priority: High Current Visit: Yes (2) Hypertension SNOMED Code(s): 68658393 ICD Code: I10 - ESSENTIAL (PRIMARY) HYPERTENSION Status: Chronic Priority: Medium Current Visit: No Qualifiers: Hypertension type: unspecified Qualified Code(s): I10 - Essential (primary) hypertension (3) Chronic kidney disease (CKD) stage G3b/A1, moderately decreased glomerular filtration rate (GFR) between 30-44 mL/min/1.73 square meter and albuminuria creatinine ratio less than 30 mg/g SNOMED Code(s): 732963292, 524764073, 403002984, 111823920 ICD Code: N18.32 - CHRONIC KIDNEY DISEASE, STAGE 3B Status: Chronic Priority: Medium Current Visit: Yes Problem List Initiated/Reviewed/Updated: Yes Orders Last 24hrs: Active Orders 24 hr Category Date Time Status Patient Status [ADT] Routine ADT 03/03/21 18:01 Ordered Cardiac Monitoring [RC] CONTINUOUS Care 03/03/21 18:03 Ordered EKG 12 Lead [EKG Documentation Completion] [RC] ROUTINE Care 03/03/21 15:53 Active Oxygen Therapy [RC] PRN Care 03/03/21 18:01 Ordered Up With Assistance [RC] ASDIRECTED Care 03/03/21 18:01 Ordered VTE/DVT Education [RC] PER UNIT ROUTINE Care 03/03/21 18:01 Ordered Vital Signs [RC] Q4H Care 03/03/21 18:01 Ordered OT Evaluation and Treatment [CONS] Routine Cons 03/03/21 18:01 Ordered PT Evaluation and Treatment [CONS] Routine Cons 03/03/21 18:01 Ordered Heart Healthy Diet [DIET] Diet 03/04/21 Breakfast Ordered Chest 1V Frontal [CR] Stat Exams 03/03/21 16:06 Taken CBC WITH AUTO DIFF [HEME] AM Lab 03/04/21 05:11 Ordered COMPREHENSIVE METABOLIC PN,CMP [CHEM] AM Lab 03/04/21 05:11 Ordered LACTATE SEPSIS W/ REFLEX [CHEM] Stat Lab 03/03/21 17:55 Received MAGNESIUM [CHEM] AM Lab 03/04/21 05:11 Ordered Acetaminophen [TylenoL] Med 03/03/21 18:01 Ordered 650 mg PO Q4H PRN Benzonatate [Tessalon Perles] Med 03/03/21 17:58 Ordered 100 mg PO QID PRN Betamethasone Valerate [Valisone 0.1% Crm] Med 03/03/21 17:58 Ordered 8 gm TOP Q8H PRN Calcium Carbonate [Tums] Med 03/03/21 17:58 Ordered 500 mg PO TID PRN Cholecalciferol (Vitamin D3) [Vitamin D3] Med 03/04/21 09:00 Ordered 5,000 unit PO DAILY Famotidine [Pepcid] Med 03/04/21 09:00 Ordered 20 mg PO DAILY Fluticasone Propionate [Flovent] Med 03/04/21 09:00 Ordered 2 inh INH DAILY Heparin Sodium Med 03/03/21 18:15 Ordered 5,000 units SUBCUT Q8H Ketotifen Med 03/03/21 17:58 Ordered 1 drop EYEBOTH BID PRN Levothyroxine [Synthroid] Med 03/04/21 09:00 Ordered 88 mcg PO DAILY Ondansetron [Zofran ODT] Med 03/03/21 18:01 Ordered 4 mg PO Q4H PRN PEG 400/Hypromellose/Glycerin [Artificial Tears Drops] Med 03/03/21 17:58 Ordered 1 drop OP Q4H PRN Sertraline [Zoloft] Med 03/04/21 09:00 Ordered 25 mg PO DAILY Sodium Chloride 0.9% [Normal Saline] 1,000 ml Med 03/03/21 18:15 Ordered IV ASDIRECTED Sodium Chloride 0.9% [Normal Saline] 1,000 ml Med 03/03/21 17:45 Active IV ONETIME cefTRIAXone [Rocephin] 2 gm Med 03/03/21 17:43 Active Sodium Chloride 0.9% [Normal Saline] 100 ml IV ONETIME oxyCODONE Med 03/03/21 18:01 Ordered 5 mg PO Q4H PRN polyethylene glycoL 3350 [MiraLAX] Med 03/03/21 17:58 Ordered 17 gm PO DAILY PRN Resuscitation Status Routine Resus Stat 03/03/21 18:01 Ordered Medication Orders Acetaminophen (Acetaminophen 325 Mg Tab) 650 mg PO Q4H PRN PRN Reason: Pain (Mild 1-3)/fever Benzonatate (Benzonatate 100 Mg Cap) 100 mg PO QID PRN PRN Reason: Cough Betamethasone Valerate (Betamethasone Valerate 0.1% Crm 15 Gm Tube) 0 gm TOP Q8H PRN PRN Reason: Itching Calcium Carbonate/Glycine (Calcium Carbonate 500 Mg Tab.Chew) 500 mg PO TID PRN PRN Reason: Heartburn Cholecalciferol (Cholecalciferol (Vitamin D3) 5,000 Unit Cap) 5,000 unit PO DAILY [facility] Famotidine (Famotidine 20 Mg Tab) 20 mg PO DAILY [facility] Heparin Sodium (Porcine) (Heparin Sodium 5,000 Units/Ml Vial) 5,000 units SUBCUT Q8H NAILA Ceftriaxone Sodium 2 gm/ (Sodium Chloride) 100 mls @ 200 mls/hr IV ONETIME ONE Stop: 03/03/21 18:12 Last Admin: 03/03/21 18:01 Dose: 200 mls/hr Documented by: LEISMEL Sodium Chloride (Normal Saline) 1,000 mls @ 999 mls/hr IV ONETIME NAILA Last Admin: 03/03/21 18:01 Dose: 999 mls/hr Documented by: LEISMEL Sodium Chloride (Normal Saline) 1,000 mls @ 100 mls/hr IV ASDIRECTED [facility] Levothyroxine Sodium (Levothyroxine 88 Mcg Tab) 88 mcg PO DAILY NAILA Non-Formulary Medication (Fluticasone Propionate [Flovent]) 2 inh INH DAILY NAILA Non-Formulary Medication (Ketotifen) 1 drop EYEBOTH BID PRN PRN Reason: Itching Non-Formulary Medication (Peg 400/Hypromellose/Glycerin [Artificial Tears Drops]) 1 drop OP Q4H PRN PRN Reason: Dry Eyes Ondansetron HCl (Ondansetron 4 Mg Tab.Dis) 4 mg PO Q4H PRN PRN Reason: nausea, able to take PO Oxycodone HCl (Oxycodone 5 Mg Tab) 5 mg PO Q4H PRN PRN Reason: Pain (moderate 4-6) Polyethylene Glycol (Polyethylene Glycol 3350 Powder 17 Gm Packet) 17 gm PO DAILY PRN PRN Reason: Constipation Sertraline HCl (Sertraline 25 Mg Tab) 25 mg PO DAILY NAILA Assessment/Plan Comment:: The patient is a 80-year-old lady who was admitted through the emergency department from [facility] due to concerns for urinary tract infection being complicated by her comorbidities. She reportedly had a fever of 105 at the senior care. As a result of this the patient will be started on IV Rocephin 2 g daily. She uses oxygen and this will be continued to help keep her saturations around 92%. Repeat laboratory studies have been ordered. The patient be kept on her regular diet as tolerated. The patient's renal function will be closely monitored for worsening as she is gently rehydrated. The patient also has been encouraged to ambulate. The patient will also be started on heparin for DVT prophylaxis due to her renal function. She should be appropriate for discharge back to senior care in 1 to 2 days. In the meantime the patient is continue to be a full resuscitation code. - Mortality Measure Prognosis:: Good
[2021-03-03] MEDS: Heparin Sodium 5,000 Units/ML Vial SUBCUT SCH (18:31)
[2021-03-03] MEDS: Sodium Chloride 0.9% 1,000 ML IV SCH (23:36)
[2021-03-04] MEDS: Acetaminophen 325 MG Tab PO PRN ×2 (01:45→15:53)
[2021-03-04] MEDS: Heparin Sodium 5,000 Units/ML Vial SUBCUT SCH ×3 (01:46→18:21)
[2021-03-04] MEDS: Benzonatate 100 MG Cap PO PRN ×2 (01:46→12:40)
--- NOTE | 2021-03-04 06:56 | PCM.PN ---
- General Info Date of Service: 03/04/21 Admission Dx/Problem (Free Text): Admission Diagnosis/Problem Admission Diagnosis/Problem Urinary tract infection with fever Subjective Update: The patient is a 80-year-old lady who was admitted yesterday secondary to urinary tract infection. The patient has been tolerating her IV antibiotics. Today she is doing better. She says her pain is much improved. She has been tolerating her diet. The patient has denied any new pain. No other complaints today. Functional Status: Reports: Pain Controlled, Tolerating Diet - Review of Systems General: Reports: No Symptoms HEENT: Reports: No Symptoms Pulmonary: Reports: No Symptoms Cardiovascular: Reports: No Symptoms Gastrointestinal: Reports: Abdominal Pain (Lower abdominal) Genitourinary: Reports: No Symptoms Musculoskeletal: Reports: No Symptoms Skin: Reports: No Symptoms Neurological: Reports: No Symptoms Psychiatric: Reports: No Symptoms - Patient Data Vitals - Most Recent: Last Vital Signs Temp 37.2 C 03/04/21 02:30 Pulse 84 03/03/21 23:41 Resp 18 03/03/21 23:41 BP 128/61 03/03/21 23:41 Pulse Ox 100 03/03/21 23:41 Weight - Most Recent: 99.337 kg I&O - Last 24 Hours: Intake & Output 03/03/21 03/03/21 03/04/21 14:59 22:59 06:59 Intake Total 100 1532 Output Total 600 Balance 100 932 Lab Results Last 24 Hours: Laboratory Results - last 24 hr 03/03/21 03/03/21 03/03/21 Range/Units 15:45 15:45 15:45 WBC 16.11 H (3.98-10.04) K/mm3 RBC 4.39 (3.98-5.22) M/mm3 Hgb 12.0 (11.2-15.7) gm/dl Hct 38.9 (34.1-44.9) % MCV 88.6 D (79.4-94.8) fl MCH 27.3 (25.6-32.2) pg MCHC 30.8 L (32.2-35.5) g/dl RDW Std Deviation 60.1 H (36.4-46.3) fL Plt Count 240 D (182-369) K/mm3 MPV 10.6 (9.4-12.3) fl Neut % (Auto) 72.9 H (34.0-71.1) % Lymph % (Auto) 10.1 L (19.3-51.7) % [place] % (Auto) 16.4 H (4.7-12.5) % Eos % (Auto) 0.1 L (0.7-5.8) Baso % (Auto) 0.1 (0.1-1.2) % Neut # (Auto) 11.73 H (1.56-6.13) K/mm3 Lymph # (Auto) 1.63 (1.18-3.74) K/mm3 [place] # (Auto) 2.65 H (0.24-0.36) K/mm3 Eos # (Auto) 0.02 L (0.04-0.36) K/mm3 Baso # (Auto) 0.02 (0.01-0.08) K/mm3 Manual Slide Review Abnormal smear Sodium 136 (136-145) mEq/L Potassium 4.3 (3.5-5.1) mEq/L Chloride 99 (98-107) mEq/L Carbon Dioxide 32 (21-32) mEq/L Anion Gap 9.3 (5-15) BUN 27 H (7-18) mg/dL Creatinine 1.3 H (0.55-1.02) mg/dL Est Cr Clr Drug Dosing 30.30 mL/min Estimated GFR (MDRD) 40 (>60) mL/min BUN/Creatinine Ratio 20.8 H (14-18) Glucose 101 H (70-99) mg/dL Lactic Acid (0.4-2.0) mmol/L Calcium 8.9 (8.5-10.1) mg/dL Magnesium (1.8-2.4) mg/dL Total Bilirubin 0.7 (0.2-1.0) mg/dL AST 47 H (15-37) U/L ALT 62 H (14-59) U/L Alkaline Phosphatase 108 (46-116) U/L C-Reactive Protein 33.1 H* (<1.0) mg/dL Total Protein 7.1 (6.4-8.2) g/dl Albumin 2.6 L (3.4-5.0) g/dl Globulin 4.5 gm/dL Albumin/Globulin Ratio 0.6 L (1-2) SARS-CoV-2 RNA (HUMAIRA) (NEGATIVE) MRSA (PCR) 03/03/21 03/03/21 03/03/21 Range/Units 17:55 18:20 20:55 WBC (3.98-10.04) K/mm3 RBC (3.98-5.22) M/mm3 Hgb (11.2-15.7) gm/dl Hct (34.1-44.9) % MCV (79.4-94.8) fl MCH (25.6-32.2) pg MCHC (32.2-35.5) g/dl RDW Std Deviation (36.4-46.3) fL Plt Count (182-369) K/mm3 MPV (9.4-12.3) fl Neut % (Auto) (34.0-71.1) % Lymph % (Auto) (19.3-51.7) % [place] % (Auto) (4.7-12.5) % Eos % (Auto) (0.7-5.8) Baso % (Auto) (0.1-1.2) % Neut # (Auto) (1.56-6.13) K/mm3 Lymph # (Auto) (1.18-3.74) K/mm3 [place] # (Auto) (0.24-0.36) K/mm3 Eos # (Auto) (0.04-0.36) K/mm3 Baso # (Auto) (0.01-0.08) K/mm3 Manual Slide Review Sodium (136-145) mEq/L Potassium (3.5-5.1) mEq/L Chloride (98-107) mEq/L Carbon Dioxide (21-32) mEq/L Anion Gap (5-15) BUN (7-18) mg/dL Creatinine (0.55-1.02) mg/dL Est Cr Clr Drug Dosing mL/min Estimated GFR (MDRD) (>60) mL/min BUN/Creatinine Ratio (14-18) Glucose (70-99) mg/dL Lactic Acid 0.4 (0.4-2.0) mmol/L Calcium (8.5-10.1) mg/dL Magnesium (1.8-2.4) mg/dL Total Bilirubin (0.2-1.0) mg/dL AST (15-37) U/L ALT (14-59) U/L Alkaline Phosphatase (46-116) U/L C-Reactive Protein (<1.0) mg/dL Total Protein (6.4-8.2) g/dl Albumin (3.4-5.0) g/dl Globulin gm/dL Albumin/Globulin Ratio (1-2) SARS-CoV-2 RNA (HUMAIRA) Negative (NEGATIVE) MRSA (PCR) Negative 03/04/21 03/04/21 Range/Units 06:00 06:00 WBC 13.52 H (3.98-10.04) K/mm3 RBC 3.96 L (3.98-5.22) M/mm3 Hgb 10.8 L (11.2-15.7) gm/dl Hct 35.7 (34.1-44.9) % MCV 90.2 (79.4-94.8) fl MCH 27.3 (25.6-32.2) pg MCHC 30.3 L (32.2-35.5) g/dl RDW Std Deviation 61.4 H (36.4-46.3) fL Plt Count 198 (182-369) K/mm3 MPV 10.4 (9.4-12.3) fl Neut % (Auto) 74.4 H (34.0-71.1) % Lymph % (Auto) 8.2 L (19.3-51.7) % [place] % (Auto) 16.6 H (4.7-12.5) % Eos % (Auto) 0.4 L (0.7-5.8) Baso % (Auto) 0.1 (0.1-1.2) % Neut # (Auto) 10.04 H (1.56-6.13) K/mm3 Lymph # (Auto) 1.11 L (1.18-3.74) K/mm3 [place] # (Auto) 2.25 H (0.24-0.36) K/mm3 Eos # (Auto) 0.06 (0.04-0.36) K/mm3 Baso # (Auto) 0.02 (0.01-0.08) K/mm3 Manual Slide Review Sodium 140 (136-145) mEq/L Potassium 4.1 (3.5-5.1) mEq/L Chloride 104 (98-107) mEq/L Carbon Dioxide 31 (21-32) mEq/L Anion Gap 9.1 (5-15) BUN 22 H (7-18) mg/dL Creatinine 1.2 H (0.55-1.02) mg/dL Est Cr Clr Drug Dosing 32.83 mL/min Estimated GFR (MDRD) 43 (>60) mL/min BUN/Creatinine Ratio 18.3 H (14-18) Glucose 105 H (70-99) mg/dL Lactic Acid (0.4-2.0) mmol/L Calcium 8.3 L (8.5-10.1) mg/dL Magnesium 2.3 (1.8-2.4) mg/dL Total Bilirubin 0.5 (0.2-1.0) mg/dL AST 30 (15-37) U/L ALT 46 (14-59) U/L Alkaline Phosphatase 93 (46-116) U/L C-Reactive Protein (<1.0) mg/dL Total Protein 6.3 L (6.4-8.2) g/dl Albumin 2.1 L (3.4-5.0) g/dl Globulin 4.2 gm/dL Albumin/Globulin Ratio 0.5 L (1-2) SARS-CoV-2 RNA (HUMAIRA) (NEGATIVE) MRSA (PCR) Med Orders - Current: Current Medications Acetaminophen (Acetaminophen 325 Mg Tab) 650 mg PO Q4H PRN PRN Reason: Pain (Mild 1-3)/fever Last Admin: 03/04/21 01:45 Dose: 650 mg Documented by: Artificial Tears (Carboxymethylcellulose Sodium 1% Ophth Gel 15 Ml Bottle) 0 ml EYEBOTH Q4H PRN PRN Reason: Dry Eyes Benzonatate (Benzonatate 100 Mg Cap) 100 mg PO QID PRN PRN Reason: Cough Last Admin: 03/04/21 01:46 Dose: 100 mg Documented by: Betamethasone Valerate (Betamethasone Valerate 0.1% Crm 15 Gm Tube) 0 gm TOP Q8H PRN PRN Reason: Itching Calcium Carbonate/Glycine (Calcium Carbonate 500 Mg Tab.Chew) 500 mg PO TID PRN PRN Reason: Heartburn Cholecalciferol (Cholecalciferol (Vitamin D3) 5,000 Unit Cap) 5,000 unit PO DAILY [facility] Famotidine (Famotidine 20 Mg Tab) 20 mg PO DAILY [facility] Heparin Sodium (Porcine) (Heparin Sodium 5,000 Units/Ml Vial) 5,000 units SUBCUT Q8H [facility] Last Admin: 03/04/21 01:46 Dose: 5,000 units Documented by: Sodium Chloride (Normal Saline) 1,000 mls @ 999 mls/hr IV ONETIME [facility] Last Infusion: 03/03/21 18:32 Dose: 100 mls/hr Documented by: Sodium Chloride (Normal Saline) 1,000 mls @ 100 mls/hr IV ASDIRECTED [facility] Last Admin: 03/03/21 23:36 Dose: 100 mls/hr Documented by: Ceftriaxone Sodium 2 gm/ (Sodium Chloride) 100 mls @ 200 mls/hr IV Q24H [facility] Levothyroxine Sodium (Levothyroxine 88 Mcg Tab) 88 mcg PO DAILY [facility] Non-Formulary Medication (Fluticasone Propionate [Flovent]) 2 inh INH DAILY [facility] Non-Formulary Medication (Ketotifen) 1 drop EYEBOTH BID PRN PRN Reason: Itching Ondansetron HCl (Ondansetron 4 Mg Tab.Dis) 4 mg PO Q4H PRN PRN Reason: nausea, able to take PO Oxycodone HCl (Oxycodone 5 Mg Tab) 5 mg PO Q4H PRN PRN Reason: Pain (moderate 4-6) Polyethylene Glycol (Polyethylene Glycol 3350 Powder 17 Gm Packet) 17 gm PO DAILY PRN PRN Reason: Constipation Sertraline HCl (Sertraline 25 Mg Tab) 25 mg PO DAILY [facility] Discontinued Medications Ceftriaxone Sodium 2 gm/ (Sodium Chloride) 100 mls @ 200 mls/hr IV ONETIME ONE Stop: 03/03/21 18:12 Last Admin: 03/03/21 18:01 Dose: 200 mls/hr Documented by: - Exam Quality Assessment: Supplemental Oxygen, DVT Prophylaxis General: Alert, Oriented, Cooperative, No Acute Distress HEENT: Pupils Equal, Pupils Reactive, EOMI, Mucous Membr. Moist/[place] Neck: Supple, Trachea Midline Lungs: Clear to Auscultation, Normal Respiratory Effort Cardiovascular: Regular Rate, Regular Rhythm GI/Abdominal Exam: Normal Bowel Sounds, Soft, Non-Tender, No Distention (Female) Exam: Deferred Back Exam: Normal Inspection, Full Range of Motion Extremities: Normal Inspection, No Pedal Edema Skin: Warm, Dry, Intact Neurological: No New Focal Deficit, Normal Speech Psy/Mental Status: Alert, Normal Affect, Normal Mood - Patient Data Lab Results Last 24 hrs: Laboratory Results - last 24 hr 03/03/21 03/03/21 03/03/21 Range/Units 15:45 15:45 15:45 WBC 16.11 H (3.98-10.04) K/mm3 RBC 4.39 (3.98-5.22) M/mm3 Hgb 12.0 (11.2-15.7) gm/dl Hct 38.9 (34.1-44.9) % MCV 88.6 D (79.4-94.8) fl MCH 27.3 (25.6-32.2) pg MCHC 30.8 L (32.2-35.5) g/dl RDW Std Deviation 60.1 H (36.4-46.3) fL Plt Count 240 D (182-369) K/mm3 MPV 10.6 (9.4-12.3) fl Neut % (Auto) 72.9 H (34.0-71.1) % Lymph % (Auto) 10.1 L (19.3-51.7) % [place] % (Auto) 16.4 H (4.7-12.5) % Eos % (Auto) 0.1 L (0.7-5.8) Baso % (Auto) 0.1 (0.1-1.2) % Neut # (Auto) 11.73 H (1.56-6.13) K/mm3 Lymph # (Auto) 1.63 (1.18-3.74) K/mm3 [place] # (Auto) 2.65 H (0.24-0.36) K/mm3 Eos # (Auto) 0.02 L (0.04-0.36) K/mm3 Baso # (Auto) 0.02 (0.01-0.08) K/mm3 Manual Slide Review Abnormal smear Sodium 136 (136-145) mEq/L Potassium 4.3 (3.5-5.1) mEq/L Chloride 99 (98-107) mEq/L Carbon Dioxide 32 (21-32) mEq/L Anion Gap 9.3 (5-15) BUN 27 H (7-18) mg/dL Creatinine 1.3 H (0.55-1.02) mg/dL Est Cr Clr Drug Dosing 30.30 mL/min Estimated GFR (MDRD) 40 (>60) mL/min BUN/Creatinine Ratio 20.8 H (14-18) Glucose 101 H (70-99) mg/dL Lactic Acid (0.4-2.0) mmol/L Calcium 8.9 (8.5-10.1) mg/dL Magnesium (1.8-2.4) mg/dL Total Bilirubin 0.7 (0.2-1.0) mg/dL AST 47 H (15-37) U/L ALT 62 H (14-59) U/L Alkaline Phosphatase 108 (46-116) U/L C-Reactive Protein 33.1 H* (<1.0) mg/dL Total Protein 7.1 (6.4-8.2) g/dl Albumin 2.6 L (3.4-5.0) g/dl Globulin 4.5 gm/dL Albumin/Globulin Ratio 0.6 L (1-2) SARS-CoV-2 RNA (HUMAIRA) (NEGATIVE) MRSA (PCR) 03/03/21 03/03/21 03/03/21 Range/Units 17:55 18:20 20:55 WBC (3.98-10.04) K/mm3 RBC (3.98-5.22) M/mm3 Hgb (11.2-15.7) gm/dl Hct (34.1-44.9) % MCV (79.4-94.8) fl MCH (25.6-32.2) pg MCHC (32.2-35.5) g/dl RDW Std Deviation (36.4-46.3) fL Plt Count (182-369) K/mm3 MPV (9.4-12.3) fl Neut % (Auto) (34.0-71.1) % Lymph % (Auto) (19.3-51.7) % [place] % (Auto) (4.7-12.5) % Eos % (Auto) (0.7-5.8) Baso % (Auto) (0.1-1.2) % Neut # (Auto) (1.56-6.13) K/mm3 Lymph # (Auto) (1.18-3.74) K/mm3 [place] # (Auto) (0.24-0.36) K/mm3 Eos # (Auto) (0.04-0.36) K/mm3 Baso # (Auto) (0.01-0.08) K/mm3 Manual Slide Review Sodium (136-145) mEq/L Potassium (3.5-5.1) mEq/L Chloride (98-107) mEq/L Carbon Dioxide (21-32) mEq/L Anion Gap (5-15) BUN (7-18) mg/dL Creatinine (0.55-1.02) mg/dL Est Cr Clr Drug Dosing mL/min Estimated GFR (MDRD) (>60) mL/min BUN/Creatinine Ratio (14-18) Glucose (70-99) mg/dL Lactic Acid 0.4 (0.4-2.0) mmol/L Calcium (8.5-10.1) mg/dL Magnesium (1.8-2.4) mg/dL Total Bilirubin (0.2-1.0) mg/dL AST (15-37) U/L ALT (14-59) U/L Alkaline Phosphatase (46-116) U/L C-Reactive Protein (<1.0) mg/dL Total Protein (6.4-8.2) g/dl Albumin (3.4-5.0) g/dl Globulin gm/dL Albumin/Globulin Ratio (1-2) SARS-CoV-2 RNA (HUMAIRA) Negative (NEGATIVE) MRSA (PCR) Negative 03/04/21 03/04/21 Range/Units 06:00 06:00 WBC 13.52 H (3.98-10.04) K/mm3 RBC 3.96 L (3.98-5.22) M/mm3 Hgb 10.8 L (11.2-15.7) gm/dl Hct 35.7 (34.1-44.9) % MCV 90.2 (79.4-94.8) fl MCH 27.3 (25.6-32.2) pg MCHC 30.3 L (32.2-35.5) g/dl RDW Std Deviation 61.4 H (36.4-46.3) fL Plt Count 198 (182-369) K/mm3 MPV 10.4 (9.4-12.3) fl Neut % (Auto) 74.4 H (34.0-71.1) % Lymph % (Auto) 8.2 L (19.3-51.7) % [place] % (Auto) 16.6 H (4.7-12.5) % Eos % (Auto) 0.4 L (0.7-5.8) Baso % (Auto) 0.1 (0.1-1.2) % Neut # (Auto) 10.04 H (1.56-6.13) K/mm3 Lymph # (Auto) 1.11 L (1.18-3.74) K/mm3 [place] # (Auto) 2.25 H (0.24-0.36) K/mm3 Eos # (Auto) 0.06 (0.04-0.36) K/mm3 Baso # (Auto) 0.02 (0.01-0.08) K/mm3 Manual Slide Review Sodium 140 (136-145) mEq/L Potassium 4.1 (3.5-5.1) mEq/L Chloride 104 (98-107) mEq/L Carbon Dioxide 31 (21-32) mEq/L Anion Gap 9.1 (5-15) BUN 22 H (7-18) mg/dL Creatinine 1.2 H (0.55-1.02) mg/dL Est Cr Clr Drug Dosing 32.83 mL/min Estimated GFR (MDRD) 43 (>60) mL/min BUN/Creatinine Ratio 18.3 H (14-18) Glucose 105 H (70-99) mg/dL Lactic Acid (0.4-2.0) mmol/L Calcium 8.3 L (8.5-10.1) mg/dL Magnesium 2.3 (1.8-2.4) mg/dL Total Bilirubin 0.5 (0.2-1.0) mg/dL AST 30 (15-37) U/L ALT 46 (14-59) U/L Alkaline Phosphatase 93 (46-116) U/L C-Reactive Protein (<1.0) mg/dL Total Protein 6.3 L (6.4-8.2) g/dl Albumin 2.1 L (3.4-5.0) g/dl Globulin 4.2 gm/dL Albumin/Globulin Ratio 0.5 L (1-2) SARS-CoV-2 RNA (HUMAIRA) (NEGATIVE) MRSA (PCR) Result Diagrams: 03/04/21 06:00 03/04/21 06:00 Sepsis Event Note - Evaluation Sepsis Screening Result: No Definite Risk - Focused Exam Vital Signs: Vital Signs Temp Temp Pulse Resp BP Pulse Ox 03/04/21 02:30 37.2 C 03/04/21 01:45 38.6 C H 03/04/21 01:42 38.6 C H 03/03/21 23:41 36.8 C 84 18 128/61 100 03/03/21 20:16 37.2 C 88 22 H 119/38 L 99 - Problem List & Annotations (1) UTI, Urinary tract infectious disease SNOMED Code(s): 05129967 Code(s): N39.0 - URINARY TRACT INFECTION, SITE NOT SPECIFIED Status: Acute Priority: High Current Visit: Yes (2) Chronic kidney disease (CKD) stage G3b/A1, moderately decreased glomerular filtration rate (GFR) between 30-44 mL/min/1.73 square meter and albuminuria creatinine ratio less than 30 mg/g SNOMED Code(s): 384028509, 069882599, 760622899, 468636002 Code(s): N18.32 - CHRONIC KIDNEY DISEASE, STAGE 3B Status: Chronic Priority: Medium Current Visit: Yes (3) Hypertension SNOMED Code(s): 61498531 Code(s): I10 - ESSENTIAL (PRIMARY) HYPERTENSION Status: Chronic Priority: Medium Current Visit: No Qualifiers: Hypertension type: unspecified Qualified Code(s): I10 - Essential (primary) hypertension - Problem List Review Problem List Initiated/Reviewed/Updated: Yes - My Orders Last 24 Hours: My Active Orders 03/03/21 17:58 Benzonatate [Tessalon Perles] 100 mg PO QID PRN Betamethasone Valerate [Valisone 0.1% Crm] 0 gm TOP Q8H PRN Calcium Carbonate [Tums] 500 mg PO TID PRN Carboxymethylcellulose Sodium [Refresh Liquigel 1%] 0 ml EYEBOTH Q4H PRN Ketotifen 1 drop EYEBOTH BID PRN polyethylene glycoL 3350 [MiraLAX] 17 gm PO DAILY PRN 03/03/21 18:01 Patient Status [ADT] Routine Oxygen Therapy [RC] PRN Up With Assistance [RC] BID VTE/DVT Education [RC] DAILY Vital Signs [RC] Q4HR OT Evaluation and Treatment [CONS] Routine PT Evaluation and Treatment [CONS] Routine Acetaminophen [TylenoL] 650 mg PO Q4H PRN Ondansetron [Zofran ODT] 4 mg PO Q4H PRN oxyCODONE 5 mg PO Q4H PRN Resuscitation Status Routine 03/03/21 18:03 Cardiac Monitoring [RC] CONTINUOUS 03/03/21 18:15 Heparin Sodium 5,000 units SUBCUT Q8H Sodium Chloride 0.9% [Normal Saline] 1,000 ml IV ASDIRECTED 03/04/21 06:00 CBC WITH AUTO DIFF [HEME] AM 03/04/21 06:53 URINALYSIS W/MICROSCOPIC [UA W/MICROSCOPIC] [URIN] Routine 03/04/21 Breakfast Heart Healthy Diet [DIET] cefTRIAXone [Rocephin] 2 gm Sodium Chloride 0.9% [Normal Saline] 100 ml IV Q24H 03/04/21 09:00 Cholecalciferol (Vitamin D3) [Vitamin D3] 5,000 unit PO DAILY Famotidine [Pepcid] 20 mg PO DAILY Fluticasone Propionate [Flovent] 2 inh INH DAILY Levothyroxine [Synthroid] 88 mcg PO DAILY Sertraline [Zoloft] 25 mg PO DAILY - Assessment Assessment:: The patient is a 80-year-old lady who has had marked elevation of her CRP and has been tolerating the IV antibiotics and IV fluids. The patient will be continued on her IV Rocephin. Repeat laboratory studies have been ordered. We will continue to monitor the patient's vital signs and adjust her antihypertensive medications as necessary. The patient is on DVT prophylaxis with the use of heparin due to her chronic kidney disease. The patient previously had a normal creatinine however it has remained stable with hydrati on. The patient should be appropriate for discharge back to [place] in 1 to 2 days. She has been encouraged to ambulate. She is to continue with the diet as tolerated.
[2021-03-04] MEDS: Cholecalciferol (Vitamin D3) 5,000 UNIT Cap PO SCH (08:30)
[2021-03-04] MEDS: Famotidine 20 MG Tab PO SCH (08:30)
[2021-03-04] MEDS: Levothyroxine 88 MCG Tab PO SCH (08:30)
[2021-03-04] MEDS: Sertraline 25 MG Tab PO SCH (08:30)
--- NOTE | 2021-03-04 08:52 | PCM.PN ---
- Patient Data Vitals - Most Recent: Last Vital Signs Temp 36.7 C 03/04/21 08:13 Pulse 76 03/04/21 08:13 Resp 20 03/04/21 08:13 BP 112/46 L 03/04/21 08:13 Pulse Ox 98 03/04/21 08:13 Weight - Most Recent: 99.337 kg I&O - Last 24 Hours: Intake & Output 03/03/21 03/04/21 03/04/21 22:59 06:59 14:59 Intake Total 100 1532 Output Total 600 Balance 100 932 Lab Results Last 24 Hours: Laboratory Results - last 24 hr 03/03/21 03/03/21 03/03/21 Range/Units 15:45 15:45 15:45 WBC 16.11 H (3.98-10.04) K/mm3 RBC 4.39 (3.98-5.22) M/mm3 Hgb 12.0 (11.2-15.7) gm/dl Hct 38.9 (34.1-44.9) % MCV 88.6 D (79.4-94.8) fl MCH 27.3 (25.6-32.2) pg MCHC 30.8 L (32.2-35.5) g/dl RDW Std Deviation 60.1 H (36.4-46.3) fL Plt Count 240 D (182-369) K/mm3 MPV 10.6 (9.4-12.3) fl Neut % (Auto) 72.9 H (34.0-71.1) % Lymph % (Auto) 10.1 L (19.3-51.7) % Emmons % (Auto) 16.4 H (4.7-12.5) % Eos % (Auto) 0.1 L (0.7-5.8) Baso % (Auto) 0.1 (0.1-1.2) % Neut # (Auto) 11.73 H (1.56-6.13) K/mm3 Lymph # (Auto) 1.63 (1.18-3.74) K/mm3 Emmons # (Auto) 2.65 H (0.24-0.36) K/mm3 Eos # (Auto) 0.02 L (0.04-0.36) K/mm3 Baso # (Auto) 0.02 (0.01-0.08) K/mm3 Manual Slide Review Abnormal smear Sodium 136 (136-145) mEq/L Potassium 4.3 (3.5-5.1) mEq/L Chloride 99 (98-107) mEq/L Carbon Dioxide 32 (21-32) mEq/L Anion Gap 9.3 (5-15) BUN 27 H (7-18) mg/dL Creatinine 1.3 H (0.55-1.02) mg/dL Est Cr Clr Drug Dosing 30.30 mL/min Estimated GFR (MDRD) 40 (>60) mL/min BUN/Creatinine Ratio 20.8 H (14-18) Glucose 101 H (70-99) mg/dL Lactic Acid (0.4-2.0) mmol/L Calcium 8.9 (8.5-10.1) mg/dL Magnesium (1.8-2.4) mg/dL Total Bilirubin 0.7 (0.2-1.0) mg/dL AST 47 H (15-37) U/L ALT 62 H (14-59) U/L Alkaline Phosphatase 108 (46-116) U/L C-Reactive Protein 33.1 H* (<1.0) mg/dL Total Protein 7.1 (6.4-8.2) g/dl Albumin 2.6 L (3.4-5.0) g/dl Globulin 4.5 gm/dL Albumin/Globulin Ratio 0.6 L (1-2) SARS-CoV-2 RNA (HUMAIRA) (NEGATIVE) MRSA (PCR) 03/03/21 03/03/21 03/03/21 Range/Units 17:55 18:20 20:55 WBC (3.98-10.04) K/mm3 RBC (3.98-5.22) M/mm3 Hgb (11.2-15.7) gm/dl Hct (34.1-44.9) % MCV (79.4-94.8) fl MCH (25.6-32.2) pg MCHC (32.2-35.5) g/dl RDW Std Deviation (36.4-46.3) fL Plt Count (182-369) K/mm3 MPV (9.4-12.3) fl Neut % (Auto) (34.0-71.1) % Lymph % (Auto) (19.3-51.7) % Emmons % (Auto) (4.7-12.5) % Eos % (Auto) (0.7-5.8) Baso % (Auto) (0.1-1.2) % Neut # (Auto) (1.56-6.13) K/mm3 Lymph # (Auto) (1.18-3.74) K/mm3 Emmons # (Auto) (0.24-0.36) K/mm3 Eos # (Auto) (0.04-0.36) K/mm3 Baso # (Auto) (0.01-0.08) K/mm3 Manual Slide Review Sodium (136-145) mEq/L Potassium (3.5-5.1) mEq/L Chloride (98-107) mEq/L Carbon Dioxide (21-32) mEq/L Anion Gap (5-15) BUN (7-18) mg/dL Creatinine (0.55-1.02) mg/dL Est Cr Clr Drug Dosing mL/min Estimated GFR (MDRD) (>60) mL/min BUN/Creatinine Ratio (14-18) Glucose (70-99) mg/dL Lactic Acid 0.4 (0.4-2.0) mmol/L Calcium (8.5-10.1) mg/dL Magnesium (1.8-2.4) mg/dL Total Bilirubin (0.2-1.0) mg/dL AST (15-37) U/L ALT (14-59) U/L Alkaline Phosphatase (46-116) U/L C-Reactive Protein (<1.0) mg/dL Total Protein (6.4-8.2) g/dl Albumin (3.4-5.0) g/dl Globulin gm/dL Albumin/Globulin Ratio (1-2) SARS-CoV-2 RNA (HUMAIRA) Negative (NEGATIVE) MRSA (PCR) Negative 03/04/21 03/04/21 Range/Units 06:00 06:00 WBC 13.52 H (3.98-10.04) K/mm3 RBC 3.96 L (3.98-5.22) M/mm3 Hgb 10.8 L (11.2-15.7) gm/dl Hct 35.7 (34.1-44.9) % MCV 90.2 (79.4-94.8) fl MCH 27.3 (25.6-32.2) pg MCHC 30.3 L (32.2-35.5) g/dl RDW Std Deviation 61.4 H (36.4-46.3) fL Plt Count 198 (182-369) K/mm3 MPV 10.4 (9.4-12.3) fl Neut % (Auto) 74.4 H (34.0-71.1) % Lymph % (Auto) 8.2 L (19.3-51.7) % Emmons % (Auto) 16.6 H (4.7-12.5) % Eos % (Auto) 0.4 L (0.7-5.8) Baso % (Auto) 0.1 (0.1-1.2) % Neut # (Auto) 10.04 H (1.56-6.13) K/mm3 Lymph # (Auto) 1.11 L (1.18-3.74) K/mm3 Emmons # (Auto) 2.25 H (0.24-0.36) K/mm3 Eos # (Auto) 0.06 (0.04-0.36) K/mm3 Baso # (Auto) 0.02 (0.01-0.08) K/mm3 Manual Slide Review Abnormal smear Sodium 140 (136-145) mEq/L Potassium 4.1 (3.5-5.1) mEq/L Chloride 104 (98-107) mEq/L Carbon Dioxide 31 (21-32) mEq/L Anion Gap 9.1 (5-15) BUN 22 H (7-18) mg/dL Creatinine 1.2 H (0.55-1.02) mg/dL Est Cr Clr Drug Dosing 32.83 mL/min Estimated GFR (MDRD) 43 (>60) mL/min BUN/Creatinine Ratio 18.3 H (14-18) Glucose 105 H (70-99) mg/dL Lactic Acid (0.4-2.0) mmol/L Calcium 8.3 L (8.5-10.1) mg/dL Magnesium 2.3 (1.8-2.4) mg/dL Total Bilirubin 0.5 (0.2-1.0) mg/dL AST 30 (15-37) U/L ALT 46 (14-59) U/L Alkaline Phosphatase 93 (46-116) U/L C-Reactive Protein (<1.0) mg/dL Total Protein 6.3 L (6.4-8.2) g/dl Albumin 2.1 L (3.4-5.0) g/dl Globulin 4.2 gm/dL Albumin/Globulin Ratio 0.5 L (1-2) SARS-CoV-2 RNA (HUMAIRA) (NEGATIVE) MRSA (PCR) Med Orders - Current: Current Medications Acetaminophen (Acetaminophen 325 Mg Tab) 650 mg PO Q4H PRN PRN Reason: Pain (Mild 1-3)/fever Last Admin: 03/04/21 01:45 Dose: 650 mg Documented by: Artificial Tears (Carboxymethylcellulose Sodium 1% Ophth Gel 15 Ml Bottle) 0 ml EYEBOTH Q4H PRN PRN Reason: Dry Eyes Benzonatate (Benzonatate 100 Mg Cap) 100 mg PO QID PRN PRN Reason: Cough Last Admin: 03/04/21 01:46 Dose: 100 mg Documented by: Betamethasone Valerate (Betamethasone Valerate 0.1% Crm 15 Gm Tube) 0 gm TOP Q8H PRN PRN Reason: Itching Calcium Carbonate/Glycine (Calcium Carbonate 500 Mg Tab.Chew) 500 mg PO TID PRN PRN Reason: Heartburn Cholecalciferol (Cholecalciferol (Vitamin D3) 5,000 Unit Cap) 5,000 unit PO DAILY [facility] Last Admin: 03/04/21 08:30 Dose: 5,000 unit Documented by: Famotidine (Famotidine 20 Mg Tab) 20 mg PO DAILY [facility] Last Admin: 03/04/21 08:30 Dose: 20 mg Documented by: Heparin Sodium (Porcine) (Heparin Sodium 5,000 Units/Ml Vial) 5,000 units SUBCUT Q8H [facility] Last Admin: 03/04/21 01:46 Dose: 5,000 units Documented by: Sodium Chloride (Normal Saline) 1,000 mls @ 999 mls/hr IV ONETIME [facility] Last Infusion: 03/03/21 18:32 Dose: 100 mls/hr Documented by: Sodium Chloride (Normal Saline) 1,000 mls @ 100 mls/hr IV ASDIRECTED [facility] Last Admin: 03/03/21 23:36 Dose: 100 mls/hr Documented by: Ceftriaxone Sodium 2 gm/ (Sodium Chloride) 100 mls @ 200 mls/hr IV Q24H [facility] Levothyroxine Sodium (Levothyroxine 88 Mcg Tab) 88 mcg PO DAILY [facility] Last Admin: 03/04/21 08:30 Dose: 88 mcg Documented by: Non-Formulary Medication (Fluticasone Propionate [Flovent]) 2 inh INH DAILY [facility] Non-Formulary Medication (Ketotifen) 1 drop EYEBOTH BID PRN PRN Reason: Itching Ondansetron HCl (Ondansetron 4 Mg Tab.Dis) 4 mg PO Q4H PRN PRN Reason: nausea, able to take PO Oxycodone HCl (Oxycodone 5 Mg Tab) 5 mg PO Q4H PRN PRN Reason: Pain (moderate 4-6) Polyethylene Glycol (Polyethylene Glycol 3350 Powder 17 Gm Packet) 17 gm PO DAILY PRN PRN Reason: Constipation Sertraline HCl (Sertraline 25 Mg Tab) 25 mg PO DAILY [facility] Last Admin: 03/04/21 08:30 Dose: 25 mg Documented by: Discontinued Medications Ceftriaxone Sodium 2 gm/ (Sodium Chloride) 100 mls @ 200 mls/hr IV ONETIME ONE Stop: 03/03/21 18:12 Last Admin: 03/03/21 18:01 Dose: 200 mls/hr Documented by: - Patient Data Lab Results Last 24 hrs: Laboratory Results - last 24 hr 03/03/21 03/03/21 03/03/21 Range/Units 15:45 15:45 15:45 WBC 16.11 H (3.98-10.04) K/mm3 RBC 4.39 (3.98-5.22) M/mm3 Hgb 12.0 (11.2-15.7) gm/dl Hct 38.9 (34.1-44.9) % MCV 88.6 D (79.4-94.8) fl MCH 27.3 (25.6-32.2) pg MCHC 30.8 L (32.2-35.5) g/dl RDW Std Deviation 60.1 H (36.4-46.3) fL Plt Count 240 D (182-369) K/mm3 MPV 10.6 (9.4-12.3) fl Neut % (Auto) 72.9 H (34.0-71.1) % Lymph % (Auto) 10.1 L (19.3-51.7) % Emmons % (Auto) 16.4 H (4.7-12.5) % Eos % (Auto) 0.1 L (0.7-5.8) Baso % (Auto) 0.1 (0.1-1.2) % Neut # (Auto) 11.73 H (1.56-6.13) K/mm3 Lymph # (Auto) 1.63 (1.18-3.74) K/mm3 Emmons # (Auto) 2.65 H (0.24-0.36) K/mm3 Eos # (Auto) 0.02 L (0.04-0.36) K/mm3 Baso # (Auto) 0.02 (0.01-0.08) K/mm3 Manual Slide Review Abnormal smear Sodium 136 (136-145) mEq/L Potassium 4.3 (3.5-5.1) mEq/L Chloride 99 (98-107) mEq/L Carbon Dioxide 32 (21-32) mEq/L Anion Gap 9.3 (5-15) BUN 27 H (7-18) mg/dL Creatinine 1.3 H (0.55-1.02) mg/dL Est Cr Clr Drug Dosing 30.30 mL/min Estimated GFR (MDRD) 40 (>60) mL/min BUN/Creatinine Ratio 20.8 H (14-18) Glucose 101 H (70-99) mg/dL Lactic Acid (0.4-2.0) mmol/L Calcium 8.9 (8.5-10.1) mg/dL Magnesium (1.8-2.4) mg/dL Total Bilirubin 0.7 (0.2-1.0) mg/dL AST 47 H (15-37) U/L ALT 62 H (14-59) U/L Alkaline Phosphatase 108 (46-116) U/L C-Reactive Protein 33.1 H* (<1.0) mg/dL Total Protein 7.1 (6.4-8.2) g/dl Albumin 2.6 L (3.4-5.0) g/dl Globulin 4.5 gm/dL Albumin/Globulin Ratio 0.6 L (1-2) SARS-CoV-2 RNA (HUMAIRA) (NEGATIVE) MRSA (PCR) 03/03/21 03/03/21 03/03/21 Range/Units 17:55 18:20 20:55 WBC (3.98-10.04) K/mm3 RBC (3.98-5.22) M/mm3 Hgb (11.2-15.7) gm/dl Hct (34.1-44.9) % MCV (79.4-94.8) fl MCH (25.6-32.2) pg MCHC (32.2-35.5) g/dl RDW Std Deviation (36.4-46.3) fL Plt Count (182-369) K/mm3 MPV (9.4-12.3) fl Neut % (Auto) (34.0-71.1) % Lymph % (Auto) (19.3-51.7) % Emmons % (Auto) (4.7-12.5) % Eos % (Auto) (0.7-5.8) Baso % (Auto) (0.1-1.2) % Neut # (Auto) (1.56-6.13) K/mm3 Lymph # (Auto) (1.18-3.74) K/mm3 Emmons # (Auto) (0.24-0.36) K/mm3 Eos # (Auto) (0.04-0.36) K/mm3 Baso # (Auto) (0.01-0.08) K/mm3 Manual Slide Review Sodium (136-145) mEq/L Potassium (3.5-5.1) mEq/L Chloride (98-107) mEq/L Carbon Dioxide (21-32) mEq/L Anion Gap (5-15) BUN (7-18) mg/dL Creatinine (0.55-1.02) mg/dL Est Cr Clr Drug Dosing mL/min Estimated GFR (MDRD) (>60) mL/min BUN/Creatinine Ratio (14-18) Glucose (70-99) mg/dL Lactic Acid 0.4 (0.4-2.0) mmol/L Calcium (8.5-10.1) mg/dL Magnesium (1.8-2.4) mg/dL Total Bilirubin (0.2-1.0) mg/dL AST (15-37) U/L ALT (14-59) U/L Alkaline Phosphatase (46-116) U/L C-Reactive Protein (<1.0) mg/dL Total Protein (6.4-8.2) g/dl Albumin (3.4-5.0) g/dl Globulin gm/dL Albumin/Globulin Ratio (1-2) SARS-CoV-2 RNA (HUMAIRA) Negative (NEGATIVE) MRSA (PCR) Negative 03/04/21 03/04/21 Range/Units 06:00 06:00 WBC 13.52 H (3.98-10.04) K/mm3 RBC 3.96 L (3.98-5.22) M/mm3 Hgb 10.8 L (11.2-15.7) gm/dl Hct 35.7 (34.1-44.9) % MCV 90.2 (79.4-94.8) fl MCH 27.3 (25.6-32.2) pg MCHC 30.3 L (32.2-35.5) g/dl RDW Std Deviation 61.4 H (36.4-46.3) fL Plt Count 198 (182-369) K/mm3 MPV 10.4 (9.4-12.3) fl Neut % (Auto) 74.4 H (34.0-71.1) % Lymph % (Auto) 8.2 L (19.3-51.7) % Emmons % (Auto) 16.6 H (4.7-12.5) % Eos % (Auto) 0.4 L (0.7-5.8) Baso % (Auto) 0.1 (0.1-1.2) % Neut # (Auto) 10.04 H (1.56-6.13) K/mm3 Lymph # (Auto) 1.11 L (1.18-3.74) K/mm3 Emmons # (Auto) 2.25 H (0.24-0.36) K/mm3 Eos # (Auto) 0.06 (0.04-0.36) K/mm3 Baso # (Auto) 0.02 (0.01-0.08) K/mm3 Manual Slide Review Abnormal smear Sodium 140 (136-145) mEq/L Potassium 4.1 (3.5-5.1) mEq/L Chloride 104 (98-107) mEq/L Carbon Dioxide 31 (21-32) mEq/L Anion Gap 9.1 (5-15) BUN 22 H (7-18) mg/dL Creatinine 1.2 H (0.55-1.02) mg/dL Est Cr Clr Drug Dosing 32.83 mL/min Estimated GFR (MDRD) 43 (>60) mL/min BUN/Creatinine Ratio 18.3 H (14-18) Glucose 105 H (70-99) mg/dL Lactic Acid (0.4-2.0) mmol/L Calcium 8.3 L (8.5-10.1) mg/dL Magnesium 2.3 (1.8-2.4) mg/dL Total Bilirubin 0.5 (0.2-1.0) mg/dL AST 30 (15-37) U/L ALT 46 (14-59) U/L Alkaline Phosphatase 93 (46-116) U/L C-Reactive Protein (<1.0) mg/dL Total Protein 6.3 L (6.4-8.2) g/dl Albumin 2.1 L (3.4-5.0) g/dl Globulin 4.2 gm/dL Albumin/Globulin Ratio 0.5 L (1-2) SARS-CoV-2 RNA (HUMAIRA) (NEGATIVE) MRSA (PCR) Result Diagrams: 03/04/21 06:00 03/04/21 06:00 Sepsis Event Note - Evaluation Sepsis Screening Result: No Definite Risk - Focused Exam Vital Signs: Vital Signs Temp Temp Pulse Resp BP Pulse Ox 03/04/21 08:13 36.7 C 76 20 112/46 L 98 03/04/21 02:30 37.2 C 03/04/21 01:45 38.6 C H 03/04/21 01:42 38.6 C H 03/03/21 23:41 36.8 C 84 18 128/61 100 - My Orders Last 24 Hours: My Active Orders 03/03/21 17:58 Benzonatate [Tessalon Perles] 100 mg PO QID PRN Betamethasone Valerate [Valisone 0.1% Crm] 0 gm TOP Q8H PRN Calcium Carbonate [Tums] 500 mg PO TID PRN Carboxymethylcellulose Sodium [Refresh Liquigel 1%] 0 ml EYEBOTH Q4H PRN Ketotifen 1 drop EYEBOTH BID PRN polyethylene glycoL 3350 [MiraLAX] 17 gm PO DAILY PRN 03/03/21 18:01 Patient Status [ADT] Routine Oxygen Therapy [RC] PRN Up With Assistance [RC] BID VTE/DVT Education [RC] DAILY Vital Signs [RC] Q4HR OT Evaluation and Treatment [CONS] Routine PT Evaluation and Treatment [CONS] Routine Acetaminophen [TylenoL] 650 mg PO Q4H PRN Ondansetron [Zofran ODT] 4 mg PO Q4H PRN oxyCODONE 5 mg PO Q4H PRN Resuscitation Status Routine 03/03/21 18:03 Cardiac Monitoring [RC] CONTINUOUS 03/03/21 18:15 Heparin Sodium 5,000 units SUBCUT Q8H Sodium Chloride 0.9% [Normal Saline] 1,000 ml IV ASDIRECTED 03/04/21 06:00 CRP [C-REACTIVE PROTEIN] [CHEM] Routine 03/04/21 06:53 URINALYSIS W/MICROSCOPIC [UA W/MICROSCOPIC] [URIN] Routine 03/04/21 Breakfast Heart Healthy Diet [DIET] 03/04/21 09:00 Cholecalciferol (Vitamin D3) [Vitamin D3] 5,000 unit PO DAILY Famotidine [Pepcid] 20 mg PO DAILY Fluticasone Propionate [Flovent] 2 inh INH DAILY Levothyroxine [Synthroid] 88 mcg PO DAILY Sertraline [Zoloft] 25 mg PO DAILY 03/04/21 17:00 cefTRIAXone [Rocephin] 2 gm Sodium Chloride 0.9% [Normal Saline] 100 ml IV Q24H
[2021-03-04] MEDS: Sodium Chloride 0.9% 1,000 ML IV SCH (09:23)
[2021-03-04] MEDS: Fluticasone Propionate Nasal Spray 16 GM Bottle NASBOTH SCH (09:27)
--- NOTE | 2021-03-04 12:22 | CR ---
Chest: Portable view of the chest was obtained. Comparison: Prior chest x-ray 09/22/20. Limited inspiratory effort is seen. Diffuse increased lung markings are noted on both sides of the chest. Findings are minimally increased from previous exam raising the possibility of chronic change with possible bronchitis. Heart size and mediastinum are stable. Bony structures show nothing acute. Scoliosis is noted within the spine. Impression: 1. Limited inspiratory effort. 2. Questionable bronchitis superimposed upon chronic change. Diagnostic code #3
[2021-03-04] MEDS ORDERED: cefTRIAXone 2 GM in Sodium Chloride 0.9% 100 ML IV SCH ×2 (17:00)
[2021-03-05] MEDS: Heparin Sodium 5,000 Units/ML Vial SUBCUT SCH ×2 (03:14→09:14)
--- NOTE | 2021-03-05 08:09 | PCM.DCSUM1 ---
Discharge Summary - Hospital Course Diagnosis: Stroke: No - Discharge Data Discharge Date: 03/05/21 Discharge Disposition: DC/Tfer to [facility] Condition: Fair - Referral to Home Health Primary Care Physician: Liu Mars MD - Discharge Diagnosis/Problem(s) (1) UTI, Urinary tract infectious disease SNOMED Code(s): 45721982 ICD Code: N39.0 - URINARY TRACT INFECTION, SITE NOT SPECIFIED Status: Acute Priority: High (2) Chronic kidney disease (CKD) stage G3b/A1, moderately decreased glomerular filtration rate (GFR) between 30-44 mL/min/1.73 square meter and albuminuria creatinine ratio less than 30 mg/g SNOMED Code(s): 845872160, [id number], 309192761, [id number] ICD Code: N18.32 - CHRONIC KIDNEY DISEASE, STAGE 3B Status: Chronic Priority: Medium (3) Hypertension SNOMED Code(s): 19687260 ICD Code: I10 - ESSENTIAL (PRIMARY) HYPERTENSION Status: Chronic Priority: Medium Qualifiers: Hypertension type: unspecified Qualified Code(s): I10 - Essential (primary) hypertension - Patient Summary/Data Consults: Consultations 03/03/21 18:01 OT Evaluation and Treatment [CONS] Routine PT Evaluation and Treatment [CONS] Routine Hospital Course: The patient is a 80-year-old lady who is a resident of [facility] was sent to the emergency department and subsequently admitted on March 04, 2021 out of concern for fever with urinary tract infection. The patient was initially started on Rocephin and the patient tolerated this well. Patient initially had a white blood cell count of 16,000 and by day of discharge this had normalized to 12,000. The patient had a chest x-ray that was completed on March 03, 2021 which showed limited inspiratory effort and with possible bronchitis. The patient normally uses oxygen and has been in a [facility] since having Covid last year. The patient had also reported that her pain had resolved. She had been afebrile. After appropriate antibiotics the patient felt like she could go home. The patient should also follow-up with her primary care physician for her chronic kidney disease. Medications have been renally dosed with her. The patient also has been discharged on Bactrim DS p.o. twice daily for 5 days. She has been continued on her other home medications. The patient has been tolerating her diet and she has been recommended to continue with her appropriate diet as tolerated. The patient is also to have activity as tolerated. The patient is a full resuscitation code. The patient has been hem odynamically stable and she has been discharged from acute hospitalization with the recommendations listed above. - Patient Instructions Diet: Heart Healthy Diet Activity: As Tolerated Notify Provider of: Fever, Increased Pain, Swelling and Redness - Discharge Plan *PRESCRIPTION DRUG MONITORING PROGRAM REVIEWED*: No *COPY OF PRESCRIPTION DRUG MONITORING REPORT IN PATIENT ANGUS: No Prescriptions/Med Rec: Sulfamethoxazole/Trimethoprim [Bactrim 400-80 MG] 1 each PO BID #10 tablet Home Medications: Home Meds Levothyroxine [Synthroid] 88 mcg PO DAILY 04/24/20 [History] Acetaminophen [Non-Aspirin Extra Strength] 1,000 mg PO BEDTIME PRN 09/02/20 [History] Benzonatate [Tessalon Perle] 100 mg PO QID PRN 09/02/20 [History] Betamethasone Valerate [Valisone 0.1% Crm] 1 applic TOP Q8H PRN 09/02/20 [History] Calcium Carbonate [Tums] 500 mg PO TID PRN 09/02/20 [History] Docusate Sodium 100 mg PO BID 09/02/20 [History] Ketotifen [Ketotifen 0.025% Ophth Soln] 1 drop EYEBOTH BID PRN 09/02/20 [Hist ory] Multivitamin [Daily Multiple Vitamin] 1 each PO DAILY 09/02/20 [History] Sertraline [Zoloft] 25 mg PO DAILY 09/02/20 [History] Triamcinolone Acetonide [Triamcinolone Acetonide 0.1% Crm] 1 applic TOP BID PRN 09/05/20 [History] Sodium Chloride [Saline Nasal [place]] 1 spray NS QID PRN 09/20/20 [History] Cholecalciferol (Vitamin D3) [Vitamin D3] 5,000 unit PO DAILY 03/03/21 [History] Famotidine [Pepcid] 20 mg PO DAILY 03/03/21 [History] PEG 400/Hypromellose/Glycerin [Artificial Tears Drops] 1 drop OP Q4H PRN 03/03/21 [History] polyethylene glycoL 3350 [Polyethylene Glycol 3350] 17 gm PO DAILY PRN 03/03/21 [History] Fluticasone Propionate [Flonase Allergy Relief] 2 sprays NASBOTH DAILY 03/04/21 [History] Sulfamethoxazole/Trimethoprim [Bactrim 400-80 MG] 1 each PO BID #10 tablet 03/05/21 [Rx] Oxygen Therapy Mode: Nasal Cannula Oxygen Flow Rate (L/min): 2 Patient Handouts: Food Basics for Chronic Kidney Disease Referrals: Liu Mars MD [Primary Care Provider] - (Call clinic on Saturday and make an appointment to follow-up with in 7-10 days.) - Discharge Summary/Plan Comment DC Time >30 min.: Yes - General Info Date of Service: 03/05/21 Admission Dx/Problem (Free Text: Admission Diagnosis/Problem Admission Diagnosis/Problem Urinary tract infection with fever Subjective Update: The patient says that she is doing much better today. She has denied any pain. She feels like she can safely go home. Functional Status: Reports: Pain Controlled, Tolerating Diet - Review of Systems General: Reports: No Symptoms HEENT: Reports: No Symptoms Pulmonary: Reports: No Symptoms Cardiovascular: Reports: No Symptoms Gastrointestinal: Reports: No Symptoms Genitourinary: Reports: No Symptoms Musculoskeletal: Reports: No Symptoms Skin: Reports: No Symptoms Neurological: Reports: No Symptoms Psychiatric: Reports: No Symptoms - Patient Data Vitals - Most Recent: Last Vital Signs Temp 37.1 C 03/05/21 03:19 Pulse 77 03/05/21 03:19 Resp 14 03/05/21 03:19 BP 113/71 03/05/21 03:19 Pulse Ox 96 03/05/21 03:19 Weight - Most Recent: 99.291 kg I&O - Last 24 hours: Intake & Output 03/04/21 03/05/21 03/05/21 22:59 06:59 14:59 Intake Total 1470 300 Output Total 400 725 Balance 1070 -425 Lab Results - Last 24 hrs: Laboratory Results - last 24 hr 03/04/21 03/04/21 03/05/21 Range/Units 06:00 11:35 05:45 WBC 12.42 H (3.98-10.04) K/mm3 RBC 3.98 (3.98-5.22) M/mm3 Hgb 10.8 L (11.2-15.7) gm/dl Hct 35.8 (34.1-44.9) % MCV 89.9 (79.4-94.8) fl MCH 27.1 (25.6-32.2) pg MCHC 30.2 L (32.2-35.5) g/dl RDW Std Deviation 61.1 H (36.4-46.3) fL Plt Count 208 (182-369) K/mm3 MPV 11.0 (9.4-12.3) fl Neut % (Auto) 77.2 H (34.0-71.1) % Lymph % (Auto) 8.4 L (19.3-51.7) % [place] % (Auto) 12.6 H (4.7-12.5) % Eos % (Auto) 1.4 (0.7-5.8) Baso % (Auto) 0.2 (0.1-1.2) % Neut # (Auto) 9.59 H (1.56-6.13) K/mm3 Lymph # (Auto) 1.04 L (1.18-3.74) K/mm3 [place] # (Auto) 1.57 H (0.24-0.36) K/mm3 Eos # (Auto) 0.17 (0.04-0.36) K/mm3 Baso # (Auto) 0.02 (0.01-0.08) K/mm3 Manual Slide Review Abnormal smear Sodium (136-145) mEq/L Potassium (3.5-5.1) mEq/L Chloride (98-107) mEq/L Carbon Dioxide (21-32) mEq/L Anion Gap (5-15) BUN (7-18) mg/dL Creatinine (0.55-1.02) mg/dL Est Cr Clr Drug Dosing mL/min Estimated GFR (MDRD) (>60) mL/min BUN/Creatinine Ratio (14-18) Glucose (70-99) mg/dL Calcium (8.5-10.1) mg/dL C-Reactive Protein 27.7 H* (<1.0) mg/dL Urine Color Yellow (Yellow) Urine Appearance Slt cloudy H (Clear) Urine pH 6.5 (5.0-8.0) Ur Specific [place] [address] [place] 1.025 (1.005-1.030) Urine Protein 2+ H (Negative) Urine Glucose (UA) Negative (Negative) Urine Ketones Negative (Negative) Urine Occult Blood 2+ H (Negative) Urine Nitrite Negative (Negative) Urine Bilirubin Negative (Negative) Urine Urobilinogen 4.0 H (0.2-1.0) Ur Leukocyte Esterase 1+ H (Negative) Urine RBC 10-20 H (0-5) /hpf Urine WBC 5-10 H (0-5) /hpf Ur Squamous Epith Cells 10-20 H (0-5) /hpf Urine Bacteria Few (FEW) /hpf Urine Mucus Few (FEW) /hpf Urine Yeast (Budding) Few H (NOT SEEN) 03/05/21 Range/Units 05:45 WBC (3.98-10.04) K/mm3 RBC (3.98-5.22) M/mm3 Hgb (11.2-15.7) gm/dl Hct (34.1-44.9) % MCV (79.4-94.8) fl MCH (25.6-32.2) pg MCHC (32.2-35.5) g/dl RDW Std Deviation (36.4-46.3) fL Plt Count (182-369) K/mm3 MPV (9.4-12.3) fl Neut % (Auto) (34.0-71.1) % Lymph % (Auto) (19.3-51.7) % [place] % (Auto) (4.7-12.5) % Eos % (Auto) (0.7-5.8) Baso % (Auto) (0.1-1.2) % Neut # (Auto) (1.56-6.13) K/mm3 Lymph # (Auto) (1.18-3.74) K/mm3 [place] # (Auto) (0.24-0.36) K/mm3 Eos # (Auto) (0.04-0.36) K/mm3 Baso # (Auto) (0.01-0.08) K/mm3 Manual Slide Review Sodium 140 (136-145) mEq/L Potassium 4.3 (3.5-5.1) mEq/L Chloride 103 (98-107) mEq/L Carbon Dioxide 32 (21-32) mEq/L Anion Gap 9.3 (5-15) BUN 21 H (7-18) mg/dL Creatinine 1.2 H (0.55-1.02) mg/dL Est Cr Clr Drug Dosing 32.83 mL/min Estimated GFR (MDRD) 43 (>60) mL/min BUN/Creatinine Ratio 17.5 (14-18) Glucose 93 (70-99) mg/dL Calcium 8.5 (8.5-10.1) mg/dL C-Reactive Protein (<1.0) mg/dL Urine Color (Yellow) Urine Appearance (Clear) Urine pH (5.0-8.0) Ur Specific [place] [address] [place] (1.005-1.030) Urine Protein (Negative) Urine Glucose (UA) (Negative) Urine Ketones (Negative) Urine Occult Blood (Negative) Urine Nitrite (Negative) Urine Bilirubin (Negative) Urine Urobilinogen (0.2-1.0) Ur Leukocyte Esterase (Negative) Urine RBC (0-5) /hpf Urine WBC (0-5) /hpf Ur Squamous Epith Cells (0-5) /hpf Urine Bacteria (FEW) /hpf Urine Mucus (FEW) /hpf Urine Yeast (Budding) (NOT SEEN) Med Orders - Current: Current Medications Acetaminophen (Acetaminophen 325 Mg Tab) 650 mg PO Q4H PRN PRN Reason: Pain (Mild 1-3)/fever Last Admin: 03/04/21 15:53 Dose: 650 mg Documented by: Artificial Tears (Carboxymethylcellulose Sodium 1% Ophth Gel 15 Ml Bottle) 0 ml EYEBOTH Q4H PRN PRN Reason: Dry Eyes Benzonatate (Benzonatate 100 Mg Cap) 100 mg PO QID PRN PRN Reason: Cough Last Admin: 03/04/21 12:40 Dose: 100 mg Documented by: Betamethasone Valerate (Betamethasone Valerate 0.1% Crm 15 Gm Tube) 0 gm TOP Q8H PRN PRN Reason: Itching Calcium Carbonate/Glycine (Calcium Carbonate 500 Mg Tab.Chew) 500 mg PO TID PRN PRN Reason: Heartburn Cholecalciferol (Cholecalciferol (Vitamin D3) 5,000 Unit Cap) 5,000 unit PO DAILY NAILA Last Admin: 03/04/21 08:30 Dose: 5,000 unit Documented by: Famotidine (Famotidine 20 Mg Tab) 20 mg PO DAILY [facility] Last Admin: 03/04/21 08:30 Dose: 20 mg Documented by: Fluticasone Propionate (Fluticasone Propionate Nasal [place] 16 Gm Bottle) 0 gm NASBOTH DAILY [facility] Last Admin: 03/04/21 09:27 Dose: 2 spray Documented by: Heparin Sodium (Porcine) (Heparin Sodium 5,000 Units/Ml Vial) 5,000 units SUBCUT Q8H [facility] Last Admin: 03/05/21 03:14 Dose: 5,000 units Documented by: Ceftriaxone Sodium 2 gm/ (Sodium Chloride) 100 mls @ 200 mls/hr IV Q24H [facility] Last Admin: 03/04/21 16:22 Dose: 200 mls/hr Documented by: Levothyroxine Sodium (Levothyroxine 88 Mcg Tab) 88 mcg PO DAILY [facility] Last Admin: 03/04/21 08:30 Dose: 88 mcg Documented by: Ondansetron HCl (Ondansetron 4 Mg Tab.Dis) 4 mg PO Q4H PRN PRN Reason: nausea, able to take PO Oxycodone HCl (Oxycodone 5 Mg Tab) 5 mg PO Q4H PRN PRN Reason: Pain (moderate 4-6) Ketotifen 5 Ml Bottle Patient' s Own Med 0 each EYEBOTH BID PRN PRN Reason: Itching Polyethylene Glycol (Polyethylene Glycol 3350 Powder 17 Gm Packet) 17 gm PO DAILY PRN PRN Reason: Constipation Sertraline HCl (Sertraline 25 Mg Tab) 25 mg PO DAILY [facility] Last Admin: 03/04/21 08:30 Dose: 25 mg Documented by: Discontinued Medications Ceftriaxone Sodium 2 gm/ (Sodium Chloride) 100 mls @ 200 mls/hr IV ONETIME ONE Stop: 03/03/21 18:12 Last Admin: 03/03/21 18:01 Dose: 200 mls/hr Documented by: Sodium Chloride (Normal Saline) 1,000 mls @ 999 mls/hr IV ONETIME [facility] Last Infusion: 03/03/21 18:32 Dose: 100 mls/hr Documented by: Sodium Chloride (Normal Saline) 1,000 mls @ 100 mls/hr IV ASDIRECTED [facility] Last Admin: 03/04/21 09:23 Dose: 100 mls/hr Documented by: Ceftriaxone Sodium 2 gm/ (Sodium Chloride) 100 mls @ 200 mls/hr IV Q24H [facility] - Exam Quality Assessment: Reports: Supplemental Oxygen General: Reports: Alert, Oriented, Cooperative, No Acute Distress HEENT: Reports: Pupils Equal, Pupils Reactive, EOMI, Mucous Membr. Moist/[place] Neck: Reports: Supple, Trachea Midline Lungs: Reports: Clear to Auscultation, Normal Respiratory Effort Cardiovascular: Reports: Regular Rate, Regular Rhythm GI/Abdominal Exam: Normal Bowel Sounds, Soft, Non-Tender, No Distention (Female) Exam: Deferred Rectal (Female) Exam: Deferred Back Exam: Reports: Normal Inspection, Full Range of Motion Extremities: Normal Inspection, No Pedal Edema Skin: Reports: Warm, Dry, Intact Neurological: Reports: No New Focal Deficit Psy/Mental Status: Reports: Alert, Normal Affect, Normal Mood
[2021-03-05] MEDS: Fluticasone Propionate Nasal Spray 16 GM Bottle NASBOTH SCH (08:12)
[2021-03-05] MEDS: Cholecalciferol (Vitamin D3) 5,000 UNIT Cap PO SCH (08:12)
[2021-03-05] MEDS: Sertraline 25 MG Tab PO SCH (08:12)
[2021-03-05] MEDS: Famotidine 20 MG Tab PO SCH (08:12)
[2021-03-05] MEDS: Levothyroxine 88 MCG Tab PO SCH (08:12)
== END 2021-03-05 12:20 | DRG 690 ==
LOC: JD.ED 15:37 → JD.MS 18:10
PROVIDERS: ADMIT Internal Medicine; ATTEND Internal Medicine
DX: N39.0 Urinary tract infection, site not specified (principal); N18.32 Chronic kidney disease, stage 3b; I10 Essential (primary) hypertension; Z86.718 Personal history of other venous thrombosis and embolism; Z87.19 Personal history of other diseases of the digestive system; I12.9 Hypertensive chronic kidney disease with stage 1 through stage 4 chronic kidney disease, or unspecified chronic kidney disease; J40 Bronchitis, not specified as acute or chronic; H54.7 Unspecified visual loss; G89.29 Other chronic pain; R51.9 Headache, unspecified; K52.9 Noninfective gastroenteritis and colitis, unspecified; Z86.16 Personal history of COVID-19; R32 Unspecified urinary incontinence; M19.90 Unspecified osteoarthritis, unspecified site; F41.9 Anxiety disorder, unspecified; Z88.9 Allergy status to unspecified drugs, medicaments and biological substances; E03.9 Hypothyroidism, unspecified; Z99.81 Dependence on supplemental oxygen; Z20.822 Contact with and (suspected) exposure to COVID-19; E66.9 Obesity, unspecified; Z90.89 Acquired absence of other organs; Z98.49 Cataract extraction status, unspecified eye; Z79.899 Other long term (current) drug therapy; Z79.890 Hormone replacement therapy; Z88.1 Allergy status to other antibiotic agents; Z88.0 Allergy status to penicillin; Z91.09 Other allergy status, other than to drugs and biological substances; Z88.8 Allergy status to other drugs, medicaments and biological substances; Z87.01 Personal history of pneumonia (recurrent); Z87.440 Personal history of urinary (tract) infections; Z90.49 Acquired absence of other specified parts of digestive tract
CPT/HCPCS: 36415; 71045; 80053; 83605; 85025; 86140; 93005; J0696; J7030; 80048; 81001; 83735; 87086; 87641; 99221; 99239; 99283; 99285-25; A9270-GY; J1644; U0002

== ENCOUNTER 2021-03-06 09:51 | Inpatient (IN) | payer MEDICARE, MEDICAID ==
--- NOTE | 2021-03-06 10:29 | EDM.PDOC ---
ED HPI GENERAL MEDICAL PROBLEM - General Chief Complaint: Fever Stated Complaint: [facility] Time Seen by Provider: 03/06/21 10:20 - History of Present Illness INITIAL COMMENTS - FREE TEXT/NARRATIVE: 80-year-old brought in by EMS with increased fevers and some shortness of breath. Patient was discharged from the hospital here yesterday on Bactrim for urinary tract infection. She is developing fevers through the night. She does have a history of heart failure. She feels a little short of breath and has been noted that she is slightly tachypneic. She does not complain of a lot of pain. She does have a frequent cough. - Related Data Allergies Allergy/AdvReac Type Severity Reaction Status Date / Time adhesive Allergy Intermediate Rash Verified 03/06/21 11:45 levofloxacin [From Levaquin] Allergy Intermediate Rash Verified 03/06/21 11:45 Iodine and Iodide Containing Allergy Mild Itching Verified 03/06/21 11:45 Produc Penicillins AdvReac Intermediate Diarrhea Verified 03/06/21 11:45 Home Meds: Home Meds Levothyroxine [Synthroid] 88 mcg PO DAILY 04/24/20 [History] Acetaminophen [Non-Aspirin Extra Strength] 1,000 mg PO BEDTIME PRN 09/02/20 [History] Benzonatate [Tessalon Perle] 100 mg PO QID PRN 09/02/20 [History] Betamethasone Valerate [Valisone 0.1% Crm] 1 applic TOP Q8H PRN 09/02/20 [History] Calcium Carbonate [Tums] 500 mg PO TID PRN 09/02/20 [History] Docusate Sodium 100 mg PO BID 09/02/20 [History] Ketotifen [Ketotifen 0.025% Ophth Soln] 1 drop EYEBOTH BID PRN 09/02/20 [History] Multivitamin [Daily Multiple Vitamin] 1 each PO DAILY 09/02/20 [History] Sertraline [Zoloft] 25 mg PO DAILY 09/02/20 [History] Triamcinolone Acetonide [Triamcinolone Acetonide 0.1% Crm] 1 applic TOP BID PRN 09/05/20 [History] Sodium Chloride [Saline Nasal [place]] 1 spray NS QID PRN 09/20/20 [History] Cholecalciferol (Vitamin D3) [Vitamin D3] 5,000 unit PO DAILY 03/03/21 [History] Famotidine [Pepcid] 20 mg PO DAILY 03/03/21 [History] PEG 400/Hypromellose/Glycerin [Artificial Tears Drops] 1 drop OP Q4H PRN 03/03/21 [History] polyethylene glycoL 3350 [Polyethylene Glycol 3350] 17 gm PO DAILY PRN 03/03/21 [History] Fluticasone Propionate [Flonase Allergy Relief] 2 sprays NASBOTH DAILY 03/04/21 [History] Sulfamethoxazole/Trimethoprim [Bactrim 400-80 MG] 1 each PO BID #10 tablet 03/05/21 [Rx] Past Medical History HEENT History: Reports: Impaired Vision, Other (See Below) Other HEENT History: glasses for reading only. Cardiovascular History: Reports: Blood Clots/VTE/DVT, Hypertension Respiratory History: Reports: Pneumonia, Recurrent, Other (See Below) Other Respiratory History: 2 liters nasal cannula pt wears at home since having COVID July 2020 Gastrointestinal History: Reports: Chronic Constipation, GI Bleed Genitourinary History: Reports: Urinary Incontinence, UTI, Recurrent TELETYPIST History: Reports: Musculoskeletal History: Reports: Osteoarthritis Other Musculoskeletal History: knee pain, rotator cuff pain but no surgery on either knees or rotator cuffs Neurological History: Reports: Headaches, Chronic Psychiatric History: Reports: Anxiety Endocrine/Metabolic History: Reports: Hypothyroidism, Obesity/BMI 30+ Other Endocrine/Metabolic History: thyroid issues Dermatologic History: Reports: Other (See Below) Other Dermatologic History: skin fungus, can only use baby soap or ivory soap - Infectious Disease History Infectious Disease History: Reports: Chicken Pox, Influenza, Measles, Mumps, Novel Coronavirus - Past Surgical History HEENT Surgical History: Reports: Cataract Surgery, Tonsillectomy Other HEENT Surgeries/Procedures: pt wears glasses for reading only. Not here Cardiovascular Surgical History: Reports: None Respiratory Surgical History: Reports: None GI Surgical History: Reports: Appendectomy, Cholecystectomy, Hernia, Abdominal Female Surgical History: Reports: None Endocrine Surgical History: Reports: None Neurological Surgical History: Reports: None Musculoskeletal Surgical History: Reports: None Dermatological Surgical History: Reports: None Social & Family History - Family History Family Medical History: Unobtainable HEENT: Reports: None Cardiac: Reports: Hypertension - Caffeine Use Caffeine Use: Reports: None - Living Situation & Occupation Living situation: Reports: , with Spouse, Extended Care Facility Occupation: Retired ED ROS GENERAL - Review of Systems Review Of Systems: See Below Constitutional: Reports: Fever, Chills HEENT: Reports: No Symptoms Respiratory: Reports: Cough, Sputum Cardiovascular: Reports: No Symptoms. Denies: Chest Pain Endocrine: Reports: No Symptoms GI/Abdominal: Reports: No Symptoms : Reports: Other (UTI symptoms seem to be improving over time) Musculoskeletal: Reports: No Symptoms Skin: Reports: No Symptoms Neurological: Reports: No Symptoms ED EXAM, GENERAL - Physical Exam Exam: See Below Exam Limited By: No Limitations General Appearance: Alert, No Apparent Distress, Other (She had some mild tachycardia when she first arrived but this improved. Also had a temperature of 39.2) Eye Exam: Bilateral Eye: Normal Inspection, PERRL Ears: Normal External Exam, Normal Canal, Hearing Grossly Normal, Normal TMs Nose: Normal Inspection, Normal Mucosa, No Blood Throat/Mouth: Normal Inspection, Normal Lips, Normal Teeth, Normal Gums, Normal Oropharynx, Normal Voice, No Airway Compromise Head: Atraumatic, Normocephalic Neck: Normal Inspection, Supple, Non-Tender, Full Range of Motion. No: Lymphadenopathy (L), Lymphadenopathy (R) Respiratory/Chest: Crackles (Base and lingular area) Cardiovascular: Regular Rate, Rhythm, No Murmur GI/Abdominal: Normal Bowel Sounds, Soft, Non-Tender Back Exam: Normal Inspection. No: CVA Tenderness (L), CVA Tenderness (R) Extremities: Normal Inspection, Other (Small amount of pedal edema on the left side scant on the right) Course - Vital Signs Last Recorded V/S: Last Vital Signs Temp 39.2 C H 03/06/21 10:12 Pulse 101 H 03/06/21 10:12 Resp 43 H 03/06/21 10:12 BP 142/76 H 03/06/21 10:12 Pulse Ox 91 L 03/06/21 10:12 - Orders/Labs/Meds Orders: Active Orders 24 hr Category Date Time Status Insert Graves Catheter [Insert Urinary Catheter] [OM.PC] Care 03/06/21 10:33 Ordered Stat Urinary Catheter Assessment [RC] ASDIRECTED Care 03/06/21 10:33 Active BLOOD CULTURE [MREF] Stat Lab 03/06/21 10:15 Received BLOOD CULTURE [MREF] Stat Lab 03/06/21 10:30 Received Blood Culture x2 Reflex Set [OM.PC] Stat Oth 03/06/21 10:22 Ordered Labs: Laboratory Tests 03/06/21 03/06/21 03/06/21 Range/Units 10:05 10:15 10:15 WBC 16.41 H (3.98-10.04) K/mm3 RBC 4.04 (3.98-5.22) M/mm3 Hgb 11.0 L (11.2-15.7) gm/dl Hct 35.6 (34.1-44.9) % MCV 88.1 (79.4-94.8) fl MCH 27.2 (25.6-32.2) pg MCHC 30.9 L (32.2-35.5) g/dl RDW Std Deviation 58.6 H (36.4-46.3) fL Plt Count 270 (182-369) K/mm3 MPV 11.2 (9.4-12.3) fl Neut % (Auto) 88.3 H (34.0-71.1) % Lymph % (Auto) 2.4 L (19.3-51.7) % [place] % (Auto) 8.5 (4.7-12.5) % Eos % (Auto) 0.2 L (0.7-5.8) Baso % (Auto) 0.2 (0.1-1.2) % Neut # (Auto) 14.50 H (1.56-6.13) K/mm3 Lymph # (Auto) 0.39 L (1.18-3.74) K/mm3 [place] # (Auto) 1.40 H (0.24-0.36) K/mm3 Eos # (Auto) 0.03 L (0.04-0.36) K/mm3 Baso # (Auto) 0.03 (0.01-0.08) K/mm3 Manual Slide Review Abnormal smear D-Dimer, Quantitative (0.19-0.50) mg/L Sodium (136-145) mEq/L Potassium (3.5-5.1) mEq/L Chloride (98-107) mEq/L Carbon Dioxide (21-32) mEq/L Anion Gap (5-15) BUN (7-18) mg/dL Creatinine (0.55-1.02) mg/dL Est Cr Clr Drug Dosing mL/min Estimated GFR (MDRD) (>60) mL/min BUN/Creatinine Ratio (14-18) Glucose (70-99) mg/dL Lactic Acid 0.8 (0.4-2.0) mmol/L Calcium (8.5-10.1) mg/dL Total Bilirubin (0.2-1.0) mg/dL AST (15-37) U/L ALT (14-59) U/L Alkaline Phosphatase (46-116) U/L Total Protein (6.4-8.2) g/dl Albumin (3.4-5.0) g/dl Globulin gm/dL Albumin/Globulin Ratio (1-2) Urine Color Yellow (Yellow) Urine Appearance Clear (Clear) Urine pH 7.0 (5.0-8.0) Ur Specific [place] 1.020 (1.005-1.030) Urine Protein 2+ H (Negative) Urine Glucose (UA) Negative (Negative) Urine Ketones 3+ H (Negative) Urine Occult Blood 1+ H (Negative) Urine Nitrite Negative (Negative) Urine Bilirubin Negative (Negative) Urine Urobilinogen 4.0 H (0.2-1.0) Ur Leukocyte Esterase Negative (Negative) Urine RBC 5-10 H (0-5) /hpf Urine WBC 0-5 (0-5) /hpf Ur Squamous Epith Cells 0-5 (0-5) /hpf Urine Bacteria Not seen (FEW) /hpf Urine Mucus Not seen (FEW) /hpf 03/06/21 03/06/21 Range/Units 11:10 11:10 WBC (3.98-10.04) K/mm3 RBC (3.98-5.22) M/mm3 Hgb (11.2-15.7) gm/dl Hct (34.1-44.9) % MCV (79.4-94.8) fl MCH (25.6-32.2) pg MCHC (32.2-35.5) g/dl RDW Std Deviation (36.4-46.3) fL Plt Count (182-369) K/mm3 MPV (9.4-12.3) fl Neut % (Auto) (34.0-71.1) % Lymph % (Auto) (19.3-51.7) % [place] % (Auto) (4.7-12.5) % Eos % (Auto) (0.7-5.8) Baso % (Auto) (0.1-1.2) % Neut # (Auto) (1.56-6.13) K/mm3 Lymph # (Auto) (1.18-3.74) K/mm3 [place] # (Auto) (0.24-0.36) K/mm3 Eos # (Auto) (0.04-0.36) K/mm3 Baso # (Auto) (0.01-0.08) K/mm3 Manual Slide Review D-Dimer, Quantitative 2.09 H (0.19-0.50) mg/L Sodium 136 (136-145) mEq/L Potassium 4.1 (3.5-5.1) mEq/L Chloride 99 (98-107) mEq/L Carbon Dioxide 29 (21-32) mEq/L Anion Gap 12.1 (5-15) BUN 17 (7-18) mg/dL Creatinine 1.1 H (0.55-1.02) mg/dL Est Cr Clr Drug Dosing 35.81 mL/min Estimated GFR (MDRD) 48 (>60) mL/min BUN/Creatinine Ratio 15.5 (14-18) Glucose 80 (70-99) mg/dL Lactic Acid (0.4-2.0) mmol/L Calcium 8.6 (8.5-10.1) mg/dL Total Bilirubin 0.8 (0.2-1.0) mg/dL AST 28 (15-37) U/L ALT 37 (14-59) U/L Alkaline Phosphatase 126 H (46-116) U/L Total Protein 7.0 (6.4-8.2) g/dl Albumin 2.3 L (3.4-5.0) g/dl Globulin 4.7 gm/dL Albumin/Globulin Ratio 0.5 L (1-2) Urine Color (Yellow) Urine Appearance (Clear) Urine pH (5.0-8.0) Ur Specific [place] (1.005-1.030) Urine Protein (Negative) Urine Glucose (UA) (Negative) Urine Ketones (Negative) Urine Occult Blood (Negative) Urine Nitrite (Negative) Urine Bilirubin (Negative) Urine Urobilinogen (0.2-1.0) Ur Leukocyte Esterase (Negative) Urine RBC (0-5) /hpf Urine WBC (0-5) /hpf Ur Squamous Epith Cells (0-5) /hpf Urine Bacteria (FEW) /hpf Urine Mucus (FEW) /hpf - Re-Assessments/Exams Free Text/Narrative Re-Assessment/Exam: 03/06/21 11:36 Ordered she now has an elevated white count. Chest x-ray is suspicious for right and left upper lobe infiltrates. She was in his initially tachypneic upon arrival here however this did come down on its own. Patient has a significant history of congestive heart failure did not proceed to fluid bolus with this history. Patient appears to have a hospital-acquired pneumonia at this time as she was just discharged from here yesterday. Case discussed with Dr. Goodman who will assume care. He concurs with not doing the fluid bolus labs show a normal lactic acid anion gap. 03/06/21 11:54 D-dimer came back elevated at 2.09 Dr. Goodman is aware of this and has ordered a CTA. Departure - Departure Time of Disposition: 11:38 Disposition: Admitted As Inpatient [id number] Clinical Impression: Hospital-acquired pneumonia - Discharge Information Referrals: Liu Mars MD [Primary Care Provider] - Forms: ED Department Discharge Sepsis Event Note (ED) - Evaluation Sepsis Screening Result: Possible Sepsis Risk - Focused Exam Vital Signs: Vital Signs Temp Pulse Resp BP Pulse Ox 03/06/21 10:12 39.2 C H 101 H 43 H 142/76 H 91 L - My Orders Last 24 Hours: My Active Orders 03/06/21 10:15 BLOOD CULTURE [MREF] Stat 03/06/21 10:22 Blood Culture x2 Reflex Set [OM.PC] Stat 03/06/21 10:30 BLOOD CULTURE [MREF] Stat - Assessment/Plan Last 24 Hours: My Active Orders 03/06/21 10:15 BLOOD CULTURE [MREF] Stat 03/06/21 10:22 Blood Culture x2 Reflex Set [OM.PC] Stat 03/06/21 10:30 BLOOD CULTURE [MREF] Stat
--- NOTE | 2021-03-06 10:56 | CR ---
Chest: Portable view of the chest was obtained. Comparison: Prior chest x-ray 03/03/21 and 09/22/20. Slight increasing density within the right upper chest is believed to be present from prior exam. Other findings within both sides of the chest are stable. Heart size and mediastinum are without change. Bony structures show nothing acute. Impression: 1. Slight increasing density within the right upper chest. Difficult to exclude a new area of developing pneumonia. 2. Other portions of the chest are stable from most recent exam. Diagnostic code #3
[2021-03-06] MEDS ORDERED: Benzonatate 100 MG Cap PO PRN (11:52)
[2021-03-06] MEDS ORDERED: KETOTIFEN EYEBOTH PRN (11:52)
[2021-03-06] MEDS ORDERED: Polyethylene Glycol 3350 Powder 17 GM Packet PO PRN (11:52)
[2021-03-06] MEDS ORDERED: Calcium Carbonate 500 MG Tab.Chew PO PRN (11:52)
[2021-03-06] MEDS ORDERED: Betamethasone Valerate 0.1% Crm 15 GM Tube TOP PRN (11:52)
[2021-03-06] MEDS ORDERED: oxyCODONE 5 MG Tab PO PRN (12:02)
[2021-03-06] MEDS ORDERED: Ondansetron 4 MG Tab.DIS PO PRN (12:02)
[2021-03-06] MEDS ORDERED: Acetaminophen 325 MG Tab PO PRN (12:02)
--- NOTE | 2021-03-06 12:10 | PCM.HP.2 ---
H&P History of Present Illness - General Date of Service: 03/06/21 Admit Problem/Dx: Admission Diagnosis/Problem Admission Diagnosis/Problem hospital-acquired pneumonia Source of Information: Patient, Old Records History Limitations: Reports: No Limitations - History of Present Illness Initial Comments - Free Text/Narative: The patient is a 80-year-old lady who is known to me was discharged in fact yesterday after improvement for treatment for a urinary tract infection. The patient had developed a fever at [facility] and she was brought back into the emergency department. Upon presentation in the emergency department the patient had a temperature elevation of 39.2 Celsius. The patient also says that she has been coughing. She is still been short of breath from her previous COVID-19 pneumonia and is on oxygen at the [facility]. She has no other com plaints today. There are no significant interval changes from her last history and physical. Onset of Symptoms: Reports: Sudden, Gradual Duration of Symptoms: Reports: Hour(s): Location: Reports: Chest Severity: Mild Improves with: Reports: None Worsens with: Reports: None Context: Reports: Other (Recent hospitalization with antibiotic treatment for urinary tract infection.) - Related Data Allergies/Adverse Reactions: Allergies Allergy/AdvReac Type Severity Reaction Status Date / Time adhesive Allergy Intermediate Rash Verified 03/06/21 11:45 levofloxacin [From Levaquin] Allergy Intermediate Rash Verified 03/06/21 11:45 Iodine and Iodide Containing Allergy Mild Itching Verified 03/06/21 11:45 Produc Penicillins AdvReac Intermediate Diarrhea Verified 03/06/21 11:45 Home Medications: Home Meds Levothyroxine [Synthroid] 88 mcg PO DAILY 04/24/20 [History] Acetaminophen [Non-Aspirin Extra Strength] 1,000 mg PO BEDTIME PRN 09/02/20 [History] Benzonatate [Tessalon Perle] 100 mg PO QID PRN 09/02/20 [History] Betamethasone Valerate [Valisone 0.1% Crm] 1 applic TOP Q8H PRN 09/02/20 [History] Calcium Carbonate [Tums] 500 mg PO TID PRN 09/02/20 [History] Docusate Sodium 100 mg PO BID 09/02/20 [History] Ketotifen [Ketotifen 0.025% Ophth Soln] 1 drop EYEBOTH BID PRN 09/02/20 [History] Multivitamin [Daily Multiple Vitamin] 1 each PO DAILY 09/02/20 [History] Sertraline [Zoloft] 25 mg PO DAILY 09/02/20 [History] Triamcinolone Acetonide [Triamcinolone Acetonide 0.1% Crm] 1 applic TOP BID PRN 09/05/20 [History] Sodium Chloride [Saline Nasal [place]] 1 spray NS QID PRN 09/20/20 [History] Cholecalciferol (Vitamin D3) [Vitamin D3] 5,000 unit PO DAILY 03/03/21 [History] Famotidine [Pepcid] 20 mg PO DAILY 03/03/21 [History] PEG 400/Hypromellose/Glycerin [Artificial Tears Drops] 1 drop OP Q4H PRN 03/03/21 [History] polyethylene glycoL 3350 [Polyethylene Glycol 3350] 17 gm PO DAILY PRN 03/03/21 [History] Fluticasone Propionate [Flonase Allergy Relief] 2 sprays NASBOTH DAILY 03/04/21 [History] Sulfamethoxazole/Trimethoprim [Bactrim 400-80 MG] 1 each PO BID #10 tablet 03/05/21 [Rx] Past Medical History HEENT History: Reports: Impaired Vision, Other (See Below) Other HEENT History: glasses for reading only. Cardiovascular History: Reports: Blood Clots/VTE/DVT, Hypertension Respiratory History: Reports: Pneumonia, Recurrent Other Respiratory History: 2 liters nasal cannula pt wears at home since having COVID July 2020 Gastrointestinal History: Reports: Chronic Constipation, Diverticulosis, GI Bleed Genitourinary History: Reports: Urinary Incontinence, UTI, Recurrent [employer] History: Reports: Musculoskeletal History: Reports: Osteoarthritis Other Musculoskeletal History: knee pain, rotator cuff pain but no surgery on either knees or rotator cuffs Neurological History: Reports: Headaches, Chronic Psychiatric History: Reports: Anxiety Endocrine/Metabolic History: Reports: Hypothyroidism, Obesity/BMI 30+ Other Endocrine/Metabolic History: thyroid issues Dermatologic History: Reports: Other (See Below) Other Dermatologic History: skin fungus, can only use baby soap or ivory soap - Infectious Disease History Infectious Disease History: Reports: Chicken Pox, Influenza, Measles, Mumps, Novel Coronavirus - Past Surgical History HEENT Surgical History: Reports: Cataract Surgery, Tonsillectomy Other HEENT Surgeries/Procedures: pt wears glasses for reading only. Not here Cardiovascular Surgical History: Reports: None Respiratory Surgical History: Reports: None GI Surgical History: Reports: Appendectomy, Cholecystectomy, Hernia, Abdominal Female Surgical History: Reports: None Endocrine Surgical History: Reports: None Neurological Surgical History: Reports: None Musculoskeletal Surgical History: Reports: None Dermatological Surgical History: Reports: None Social & Family History - Family History Family Medical History: Unobtainable HEENT: Reports: None Cardiac: Reports: Hypertension - Tobacco Use Tobacco Use Status *Q: Never Tobacco User - Caffeine Use Caffeine Use: Reports: None - Recreational Drug Use Recreational Drug Use: No - Living Situation & Occupation Living situation: Reports: , with Spouse, Extended Care Facility Occupation: Retired H&P Review of Systems - Review of Systems: Review Of Systems: See Below General: Reports: Fever, Weakness HEENT: Reports: No Symptoms Pulmonary: Reports: Shortness of Breath, Cough, Sputum Cardiovascular: Reports: No Symptoms Gastrointestinal: Reports: No Symptoms Genitourinary: Reports: No Symptoms Musculoskeletal: Reports: No Symptoms Skin: Reports: No Symptoms Psychiatric: Reports: No Symptoms Neurological: Reports: No Symptoms Hematologic/Lymphatic: Reports: No Symptoms Immunologic: Reports: No Symptoms Exam - Exam Exam: See Below - Vital Signs Vital Signs: Last Vital Signs Temp 39.2 C H 03/06/21 10:12 Pulse 101 H 03/06/21 10:12 Resp 43 H 03/06/21 10:12 BP 142/76 H 03/06/21 10:12 Pulse Ox 91 L 03/06/21 10:12 Weight: 98.157 kg - Exam Quality Assessment: Supplemental Oxygen. No: DVT Prophylaxis General: Alert, Oriented, Cooperative HEENT: Conjunctiva Clear, EACs Clear, EOMI, Hearing Intact, Mucosa Moist & [place], PERRLA Neck: Supple, Trachea Midline Lungs: Decreased Breath Sounds, Crackles (Change from discharge examination), Rales (Predominantly right side), Other (Tachypneic) Cardiovascular: Regular Rate, Regular Rhythm GI/Abdominal Exam: Normal Bowel Sounds, No Distention (Female) Exam: Deferred Rectal (Female) Exam: Deferred Back Exam: Normal Inspection, Full Range of Motion Extremities: Normal Inspection, No Pedal Edema Skin: Warm, Dry, Intact Psychiatric: Alert, Normal Affect, Normal Mood - Patient Data Lab Results Last 24 hrs: Laboratory Results - last 24 hr 03/06/21 03/06/21 03/06/21 Range/Units 10:05 10:15 10:15 WBC 16.41 H (3.98-10.04) K/mm3 RBC 4.04 (3.98-5.22) M/mm3 Hgb 11.0 L (11.2-15.7) gm/dl Hct 35.6 (34.1-44.9) % MCV 88.1 (79.4-94.8) fl MCH 27.2 (25.6-32.2) pg MCHC 30.9 L (32.2-35.5) g/dl RDW Std Deviation 58.6 H (36.4-46.3) fL Plt Count 270 (182-369) K/mm3 MPV 11.2 (9.4-12.3) fl Neut % (Auto) 88.3 H (34.0-71.1) % Lymph % (Auto) 2.4 L (19.3-51.7) % Tyrrell % (Auto) 8.5 (4.7-12.5) % Eos % (Auto) 0.2 L (0.7-5.8) Baso % (Auto) 0.2 (0.1-1.2) % Neut # (Auto) 14.50 H (1.56-6.13) K/mm3 Lymph # (Auto) 0.39 L (1.18-3.74) K/mm3 Tyrrell # (Auto) 1.40 H (0.24-0.36) K/mm3 Eos # (Auto) 0.03 L (0.04-0.36) K/mm3 Baso # (Auto) 0.03 (0.01-0.08) K/mm3 Manual Slide Review Abnormal smear D-Dimer, Quantitative (0.19-0.50) mg/L Sodium (136-145) mEq/L Potassium (3.5-5.1) mEq/L Chloride (98-107) mEq/L Carbon Dioxide (21-32) mEq/L Anion Gap (5-15) BUN (7-18) mg/dL Creatinine (0.55-1.02) mg/dL Est Cr Clr Drug Dosing mL/min Estimated GFR (MDRD) (>60) mL/min BUN/Creatinine Ratio (14-18) Glucose (70-99) mg/dL Lactic Acid 0.8 (0.4-2.0) mmol/L Calcium (8.5-10.1) mg/dL Total Bilirubin (0.2-1.0) mg/dL AST (15-37) U/L ALT (14-59) U/L Alkaline Phosphatase (46-116) U/L Total Protein (6.4-8.2) g/dl Albumin (3.4-5.0) g/dl Globulin gm/dL Albumin/Globulin Ratio (1-2) Urine Color Yellow (Yellow) Urine Appearance Clear (Clear) Urine pH 7.0 (5.0-8.0) Ur Specific Wall[place] 1.020 (1.005-1.030) Urine Protein 2+ H (Negative) Urine Glucose (UA) Negative (Negative) Urine Ketones 3+ H (Negative) Urine Occult Blood 1+ H (Negative) Urine Nitrite Negative (Negative) Urine Bilirubin Negative (Negative) Urine Urobilinogen 4.0 H (0.2-1.0) Ur Leukocyte Esterase Negative (Negative) Urine RBC 5-10 H (0-5) /hpf Urine WBC 0-5 (0-5) /hpf Ur Squamous Epith Cells 0-5 (0-5) /hpf Urine Bacteria Not seen (FEW) /hpf Urine Mucus Not seen (FEW) /hpf 03/06/21 03/06/21 Range/Units 11:10 11:10 WBC (3.98-10.04) K/mm3 RBC (3.98-5.22) M/mm3 Hgb (11.2-15.7) gm/dl Hct (34.1-44.9) % MCV (79.4-94.8) fl MCH (25.6-32.2) pg MCHC (32.2-35.5) g/dl RDW Std Deviation (36.4-46.3) fL Plt Count (182-369) K/mm3 MPV (9.4-12.3) fl Neut % (Auto) (34.0-71.1) % Lymph % (Auto) (19.3-51.7) % Tyrrell % (Auto) (4.7-12.5) % Eos % (Auto) (0.7-5.8) Baso % (Auto) (0.1-1.2) % Neut # (Auto) (1.56-6.13) K/mm3 Lymph # (Auto) (1.18-3.74) K/mm3 Tyrrell # (Auto) (0.24-0.36) K/mm3 Eos # (Auto) (0.04-0.36) K/mm3 Baso # (Auto) (0.01-0.08) K/mm3 Manual Slide Review D-Dimer, Quantitative 2.09 H (0.19-0.50) mg/L Sodium 136 (136-145) mEq/L Potassium 4.1 (3.5-5.1) mEq/L Chloride 99 (98-107) mEq/L Carbon Dioxide 29 (21-32) mEq/L Anion Gap 12.1 (5-15) BUN 17 (7-18) mg/dL Creatinine 1.1 H (0.55-1.02) mg/dL Est Cr Clr Drug Dosing 35.81 mL/min Estimated GFR (MDRD) 48 (>60) mL/min BUN/Creatinine Ratio 15.5 (14-18) Glucose 80 (70-99) mg/dL Lactic Acid (0.4-2.0) mmol/L Calcium 8.6 (8.5-10.1) mg/dL Total Bilirubin 0.8 (0.2-1.0) mg/dL AST 28 (15-37) U/L ALT 37 (14-59) U/L Alkaline Phosphatase 126 H (46-116) U/L Total Protein 7.0 (6.4-8.2) g/dl Albumin 2.3 L (3.4-5.0) g/dl Globulin 4.7 gm/dL Albumin/Globulin Ratio 0.5 L (1-2) Urine Color (Yellow) Urine Appearance (Clear) Urine pH (5.0-8.0) Ur Specific [place] (1.005-1.030) Urine Protein (Negative) Urine Glucose (UA) (Negative) Urine Ketones (Negative) Urine Occult Blood (Negative) Urine Nitrite (Negative) Urine Bilirubin (Negative) Urine Urobilinogen (0.2-1.0) Ur Leukocyte Esterase (Negative) Urine RBC (0-5) /hpf Urine WBC (0-5) /hpf Ur Squamous Epith Cells (0-5) /hpf Urine Bacteria (FEW) /hpf Urine Mucus (FEW) /hpf Result Diagrams: 03/06/21 10:15 03/06/21 11:10 Sepsis Event Note - Evaluation Sepsis Screening Result: Possible Sepsis Risk - Focused Exam Vital Signs: Vital Signs Temp Pulse Resp BP Pulse Ox 03/06/21 10:12 39.2 C H 101 H 43 H 142/76 H 91 L - Problem List (1) Hospital-acquired pneumonia SNOMED Code(s): 259884065 ICD Code: J18.9 - PNEUMONIA, UNSPECIFIED ORGANISM; Y95 - NOSOCOMIAL CONDITION Status: Acute Priority: High Current Visit: Yes (2) Chronic kidney disease (CKD) stage G3b/A1, moderately decreased glomerular filtration rate (GFR) between 30-44 mL/min/1.73 square meter and albuminuria creatinine ratio less than 30 mg/g SNOMED Code(s): 234561066, 436933413, 295895675, 661766440 ICD Code: N18.32 - CHRONIC KIDNEY DISEASE, STAGE 3B Status: Chronic Priority: High Current Visit: Yes (3) Elevated d-dimer SNOMED Code(s): 597768781 ICD Code: R79.89 - OTHER SPECIFIED ABNORMAL FINDINGS OF BLOOD CHEMISTRY Status: Acute Priority: High Current Visit: Yes (4) History of DVT (deep vein thrombosis) SNOMED Code(s): 756221203 ICD Code: Z86.718 - PERSONAL HISTORY OF OTHER VENOUS THROMBOSIS AND EMBOLISM Status: Chronic Priority: High Current Visit: Yes Problem List Initiated/Reviewed/Updated: Yes Orders Last 24hrs: Active Orders 24 hr Category Date Time Status Patient Status [ADT] Routine ADT 03/06/21 11:56 Ordered Cardiac Monitoring [RC] CONTINUOUS Care 03/06/21 11:59 Ordered Diabetes Education [RC] Click to Edit Care 03/06/21 12:01 Ordered Insert Graves Catheter [Insert Urinary Catheter] [OM.PC] Care 03/06/21 10:33 Ordered Stat Oxygen Therapy [RC] PRN Care 03/06/21 11:56 Ordered Oxygen Therapy [RC] PRN Care 03/06/21 12:02 Ordered Up With Assistance [RC] ASDIRECTED Care 03/06/21 11:56 Ordered Urinary Catheter Assessment [RC] ASDIRECTED Care 03/06/21 10:33 Active VTE/DVT Education [RC] PER UNIT ROUTINE Care 03/06/21 11:56 Ordered VTE/DVT Education [RC] PER UNIT ROUTINE Care 03/06/21 12:02 Ordered Vital Signs [RC] Q4H Care 03/06/21 11:56 Ordered Vital Signs [RC] Q4H Care 03/06/21 12:02 Ordered OT Evaluation and Treatment [CONS] Routine Cons 03/06/21 12:02 Ordered PT Evaluation and Treatment [CONS] Routine Cons 03/06/21 12:02 Ordered Heart Healthy Diet [DIET] Diet 03/06/21 Dinner Ordered CTA Chest W WO Contrast [Ang Chest] [CT] Stat Exams 03/06/21 11:55 Ordered BLOOD CULTURE [MREF] Stat Lab 03/06/21 10:15 Received BLOOD CULTURE [MREF] Stat Lab 03/06/21 10:30 Received C-REACTIVE PROTEIN [CHEM] AM Lab 03/07/21 05:11 Ordered CBC WITH AUTO DIFF [HEME] AM Lab 03/07/21 05:11 Ordered COMPREHENSIVE METABOLIC PN,CMP [CHEM] AM Lab 03/07/21 05:11 Ordered CORONAVIRUS COVID-19 HUMAIRA [MOLEC] Stat Lab 03/06/21 12:06 Ordered MAGNESIUM [CHEM] AM Lab 03/07/21 05:11 Ordered Acetaminophen [TylenoL] Med 03/06/21 12:02 Ordered 650 mg PO Q4H PRN Aztreonam [Azactam] 1 gm Med 03/06/21 21:00 Ordered Sodium Chloride 0.9% [Normal Saline] 50 ml IV Q12HR Benzonatate [Tessalon Perles] Med 03/06/21 11:52 Ordered 100 mg PO QID PRN Betamethasone Valerate [Valisone 0.1% Crm] Med 03/06/21 11:52 Ordered 1 applic TOP Q8H PRN Calcium Carbonate [Tums] Med 03/06/21 11:52 Ordered 500 mg PO TID PRN Cholecalciferol (Vitamin D3) [Vitamin D3] Med 03/07/21 09:00 Ordered 5,000 unit PO DAILY Docusate Sodium [Colace] Med 03/06/21 21:00 Ordered 100 mg PO BID Famotidine [Pepcid] Med 03/07/21 09:00 Ordered 20 mg PO DAILY Fluticasone Propionate Med 03/07/21 09:00 Ordered 2 sprays NASBOTH DAILY Heparin Sodium Med 03/06/21 12:00 Ordered 5,000 units SUBCUT Q8H Ketotifen Med 03/06/21 11:52 Ordered 1 drop EYEBOTH BID PRN Levothyroxine [Synthroid] Med 03/07/21 09:00 Ordered 88 mcg PO DAILY Ondansetron [Zofran ODT] Med 03/06/21 12:02 Ordered 4 mg PO Q4H PRN Pharmacy to Dose - Vancomycin Med 03/06/21 12:15 Ordered 1 dose .XX ASDIRECTED Piperacillin/Tazobactam [Piperacil-Tazobact] 4.5 gm Med 03/06/21 12:15 Ordered Sodium Chloride 0.9% [Normal Saline] 100 ml IV Q8H Sertraline [Zoloft] Med 03/07/21 09:00 Ordered 25 mg PO DAILY Sodium Chloride 0.9% [Normal Saline] 1,000 ml Med 03/06/21 12:15 Ordered IV ASDIRECTED Vancomycin 1 gm Med 03/06/21 12:15 Ordered Sodium Chloride 0.9% [Normal Saline] 250 ml IV Q24H oxyCODONE Med 03/06/21 12:02 Ordered 5 mg PO Q4H PRN polyethylene glycoL 3350 [MiraLAX] Med 03/06/21 11:52 Ordered 17 gm PO DAILY PRN Blood Culture x2 Reflex Set [OM.PC] Stat Ot 03/06/21 10:22 Ordered Glucose Management Sub Q Reflex [OM.PC] Click to Edit Oth 03/06/21 11:56 Ordered Resuscitation Status Routine Resus Stat 03/06/21 11:56 Ordered Medication Orders Benzonatate (Benzonatate 100 Mg Cap) 100 mg PO QID PRN PRN Reason: Cough Betamethasone Valerate (Betamethasone Valerate 0.1% Crm 15 Gm Tube) gm TOP Q8H PRN PRN Reason: Itching Calcium Carbonate/Glycine (Calcium Carbonate 500 Mg Tab.Chew) 500 mg PO TID PRN PRN Reason: Heartburn Cholecalciferol (Cholecalciferol (Vitamin D3) 5,000 Unit Cap) 5,000 unit PO DAILY NAILA Docusate Sodium (Docusate Sodium 100 Mg Cap) 100 mg PO BID NAILA Famotidine (Famotidine 20 Mg Tab) 20 mg PO DAILY [facility] Heparin Sodium (Porcine) (Heparin Sodium 5,000 Units/Ml Vial) 5,000 units SUBCUT Q8H NAILA Levothyroxine Sodium (Levothyroxine 88 Mcg Tab) 88 mcg PO DAILY NAILA Non-Formulary Medication (Fluticasone Propionate) 2 sprays NASBOTH DAILY [facility] Non-Formulary Medication (Ketotifen) 1 drop EYEBOTH BID PRN PRN Reason: Itching Polyethylene Glycol (Polyethylene Glycol 3350 Powder 17 Gm Packet) 17 gm PO DAILY PRN PRN Reason: Constipation Sertraline HCl (Sertraline 25 Mg Tab) 25 mg PO DAILY NAILA Assessment/Plan Comment:: The patient is a 80-year-old lady who has been readmitted secondary to pneumonia. She had been previously treated with antibiotics for urinary tract infection. The patient also has a history of DVT and currently has an elevated D-dimer. I have ordered the CT scan with of her chest with PE protocol. The patient will be admitted as an inpatient secondary to hospital-acquired pneumonia. I have elected to place the patient on vancomycin with pharmacy to dose along with Zosyn 4.5 g IV every 8 hours. The patient has an adverse reaction to penicillin as opposed to a true allergy. She also be started on aztreonam 1 g every 8 hours. The patient will be kept on DVT prophylaxis with use of heparin and this will be increased as necessary if PE is present. PT OT is also been reordered for the patient. To have a regular diet as tolerated. Have also placed the patient on telemetry. Repeat laboratory studies have been ordered none electrolytes will be replaced as necessary. - Mortality Measure Prognosis:: Good
[2021-03-06] MEDS ORDERED: Sodium Chloride 0.9% 10 ML Syringe FLUSH ONE (12:13)
[2021-03-06] MEDS ORDERED: Iopamidol 755 Mg/ML 100 ML Bottle IVPUSH ONE (12:13)
[2021-03-06] MEDS ORDERED: Sodium Chloride 0.9% 100 ML IV SCH (12:15)
[2021-03-06] MEDS ORDERED: diphenhydrAMINE 50 MG/ML SDV IVPUSH ONE (12:28)
[2021-03-06] MEDS ORDERED: Famotidine 20 MG/2 ML SDV IVPUSH ONE (12:28)
--- NOTE | 2021-03-06 13:25 | CT ---
CT chest Technique: Multiple axial sections through the chest were obtained. Intravenous contrast was utilized. Study has been performed as a pulmonary angiogram protocol. Comparison: No prior chest CT, prior chest x-ray of 03/06/21. Findings: Pulmonary arteries are fairly well opacified. No discrete filling defects are seen to indicate definite pulmonary embolism. Thoracic aorta shows no aneurysm. No discrete mediastinal adenopathy is seen. No hilar adenopathy is seen. Heart is slightly enlarged. Visualized upper abdominal structures show no discrete abnormality. Thickening is seen within the distal esophagus suspicious for gastroesophageal reflux. Lung window settings were reviewed which show scattered areas of parenchymal scarring. Slight area of increased density within the right upper lung which could represent an early area of pneumonia versus a more prominent area of fibrosis. Impression: 1. No definite findings of pulmonary embolism. 2. Slight density within the right upper chest either due to pulmonary fibrosis or small area of developing pneumonia. 3. Other scattered areas of fibrotic change is noted within both lungs. 4. Thickening of the distal esophagus wall suspicious for gastroesophageal reflux. Diagnostic code #3
[2021-03-06] MEDS ORDERED: Vancomycin 1 GM, Vancomycin 500 MG in Sodium Chloride 0.9% 500 ML IV ONE (13:30)
[2021-03-06] MEDS ORDERED: Piperacillin/Tazobactam 4.5 GM in Sodium Chloride 0.9% 100 ML IV ONE (13:30)
[2021-03-06] MEDS: Heparin Sodium 5,000 Units/ML Vial SUBCUT SCH ×2 (15:27→21:06)
[2021-03-06] MEDS: Sodium Chloride 0.9% 1,000 ML IV SCH (15:27)
[2021-03-06] MEDS: Piperacillin/Tazobactam 4.5 GM in Sodium Chloride 0.9% 100 ML IV SCH (20:47)
[2021-03-06] MEDS: Docusate Sodium 100 MG Cap PO SCH (20:47)
[2021-03-07] MEDS: Sodium Chloride 0.9% 1,000 ML IV SCH (05:39)
[2021-03-07] MEDS: Piperacillin/Tazobactam 4.5 GM in Sodium Chloride 0.9% 100 ML IV SCH ×3 (05:41→21:25)
[2021-03-07] MEDS: Levothyroxine 88 MCG Tab PO SCH (05:41)
[2021-03-07] MEDS: Heparin Sodium 5,000 Units/ML Vial SUBCUT SCH ×3 (05:41→21:25)
[2021-03-07] MEDS: Fluticasone Propionate Nasal Spray 16 GM Bottle NASBOTH SCH (08:46)
[2021-03-07] MEDS: Docusate Sodium 100 MG Cap PO SCH ×2 (08:46→20:22)
[2021-03-07] MEDS: Cholecalciferol (Vitamin D3) 5,000 UNIT Cap PO SCH (08:46)
[2021-03-07] MEDS: Famotidine 20 MG Tab PO SCH (08:46)
[2021-03-07] MEDS: Sertraline 25 MG Tab PO SCH (08:46)
[2021-03-07] MEDS: Albuterol/Ipratropium 3.0-0.5 MG/3 ML Neb Soln NEB SCH ×3 (12:42→20:19)
[2021-03-07] MEDS ORDERED: Furosemide 20 MG/2 ML VIAL IVPUSH ONE (13:10)
[2021-03-07] MEDS ORDERED: Potassium Chloride 20 MEQ Tab.ER PO ONE (13:45)
--- NOTE | 2021-03-07 13:49 | PCM.PN ---
- General Info Date of Service: 03/07/21 Admission Dx/Problem (Free Text): Admission Diagnosis/Problem Admission Diagnosis/Problem hospital-acquired pneumonia Subjective Update: patient endorses cough endorses sob denies chest pain and fever no nausea and vomiting - Patient Data Vitals - Most Recent: Last Vital Signs Temp 98.8 F 03/07/21 12:00 Pulse 103 H 03/07/21 12:00 Resp 24 H 03/07/21 12:00 BP 118/68 03/07/21 12:00 Pulse Ox 94 L 03/07/21 12:35 Weight - Most Recent: 220 lb 6.4 oz I&O - Last 24 Hours: Intake & Output 03/06/21 03/07/21 03/07/21 22:59 06:59 14:59 Intake Total 775 1612 Balance 775 1612 Lab Results Last 24 Hours: Laboratory Results - last 24 hr 03/06/21 03/06/21 03/07/21 Range/Units 12:25 16:00 05:10 WBC 16.29 H (3.98-10.04) K/mm3 RBC 3.75 L (3.98-5.22) M/mm3 Hgb 10.3 L (11.2-15.7) gm/dl Hct 33.1 L (34.1-44.9) % MCV 88.3 (79.4-94.8) fl MCH 27.5 (25.6-32.2) pg MCHC 31.1 L (32.2-35.5) g/dl RDW Std Deviation 59.1 H (36.4-46.3) fL Plt Count 236 (182-369) K/mm3 MPV 11.1 (9.4-12.3) fl Neut % (Auto) 89.5 H (34.0-71.1) % Lymph % (Auto) 2.6 L (19.3-51.7) % [place] % (Auto) 7.3 (4.7-12.5) % Eos % (Auto) 0 L (0.7-5.8) Baso % (Auto) 0.2 (0.1-1.2) % Neut # (Auto) 14.58 H (1.56-6.13) K/mm3 Lymph # (Auto) 0.42 L (1.18-3.74) K/mm3 [place] # (Auto) 1.19 H (0.24-0.36) K/mm3 Eos # (Auto) 0.00 L (0.04-0.36) K/mm3 Baso # (Auto) 0.03 (0.01-0.08) K/mm3 Manual Slide Review Abnormal smear VBG pH (7.30-7.40) VBG pCO2 (41-51) mmHg VBG pO2 (40-80) mmHG VBG HCO3 (22-26) meq/L VBG O2 Saturation VBG Base Excess (-4.0-2.0) O2 Delivery Device Oxygen Flow Rate Sodium (136-145) mEq/L Potassium (3.5-5.1) mEq/L Chloride (98-107) mEq/L Carbon Dioxide (21-32) mEq/L Anion Gap (5-15) BUN (7-18) mg/dL Creatinine (0.55-1.02) mg/dL Est Cr Clr Drug Dosing mL/min Estimated GFR (MDRD) (>60) mL/min BUN/Creatinine Ratio (14-18) Glucose (70-99) mg/dL Calcium (8.5-10.1) mg/dL Magnesium (1.8-2.4) mg/dL Total Bilirubin (0.2-1.0) mg/dL AST (15-37) U/L ALT (14-59) U/L Alkaline Phosphatase (46-116) U/L C-Reactive Protein (<1.0) mg/dL Total Protein (6.4-8.2) g/dl Albumin (3.4-5.0) g/dl Globulin gm/dL Albumin/Globulin Ratio (1-2) SARS-CoV-2 RNA (HUMAIRA) Negative (NEGATIVE) MRSA (PCR) Negative 03/07/21 03/07/21 Range/Units 05:10 12:56 WBC (3.98-10.04) K/mm3 RBC (3.98-5.22) M/mm3 Hgb (11.2-15.7) gm/dl Hct (34.1-44.9) % MCV (79.4-94.8) fl MCH (25.6-32.2) pg MCHC (32.2-35.5) g/dl RDW Std Deviation (36.4-46.3) fL Plt Count (182-369) K/mm3 MPV (9.4-12.3) fl Neut % (Auto) (34.0-71.1) % Lymph % (Auto) (19.3-51.7) % [place] % (Auto) (4.7-12.5) % Eos % (Auto) (0.7-5.8) Baso % (Auto) (0.1-1.2) % Neut # (Auto) (1.56-6.13) K/mm3 Lymph # (Auto) (1.18-3.74) K/mm3 [place] # (Auto) (0.24-0.36) K/mm3 Eos # (Auto) (0.04-0.36) K/mm3 Baso # (Auto) (0.01-0.08) K/mm3 Manual Slide Review VBG pH 7.53 H (7.30-7.40) VBG pCO2 24.6 L (41-51) mmHg VBG pO2 99.0 H (40-80) mmHG VBG HCO3 20.2 L (22-26) meq/L VBG O2 Saturation 98.7 VBG Base Excess -1.1 (-4.0-2.0) O2 Delivery Device Nasal cannula Oxygen Flow Rate 3.0 Sodium 138 (136-145) mEq/L Potassium 3.5 (3.5-5.1) mEq/L Chloride 101 (98-107) mEq/L Carbon Dioxide 25 (21-32) mEq/L Anion Gap 15.5 H (5-15) BUN 17 (7-18) mg/dL Creatinine 1.3 H (0.55-1.02) mg/dL Est Cr Clr Drug Dosing 30.30 mL/min Estimated GFR (MDRD) 40 (>60) mL/min BUN/Creatinine Ratio 13.1 L (14-18) Glucose 103 H (70-99) mg/dL Calcium 7.9 L (8.5-10.1) mg/dL Magnesium 2.0 (1.8-2.4) mg/dL Total Bilirubin 0.8 (0.2-1.0) mg/dL AST 26 (15-37) U/L ALT 36 (14-59) U/L Alkaline Phosphatase 117 H (46-116) U/L C-Reactive Protein 30.1 H* (<1.0) mg/dL Total Protein 6.3 L (6.4-8.2) g/dl Albumin 2.0 L (3.4-5.0) g/dl Globulin 4.3 gm/dL Albumin/Globulin Ratio 0.5 L (1-2) SARS-CoV-2 RNA (HUMAIRA) (NEGATIVE) MRSA (PCR) Med Orders - Current: Current Medications Acetaminophen (Acetaminophen 325 Mg Tab) 650 mg PO Q4H PRN PRN Reason: Pain (Mild 1-3)/fever Last Admin: 03/07/21 04:30 Dose: 650 mg Documented by: Albuterol/Ipratropium (Albuterol/Ipratropium 3.0-0.5 Mg/3 Ml Neb Soln) 3 ml NEB Q6HRRT [facility] Last Admin: 03/07/21 12:42 Dose: 3 ml Documented by: Benzonatate (Benzonatate 100 Mg Cap) 100 mg PO QID PRN PRN Reason: Cough Betamethasone Valerate (Betamethasone Valerate 0.1% Crm 15 Gm Tube) 0 gm TOP Q8H PRN PRN Reason: Itching Calcium Carbonate/Glycine (Calcium Carbonate 500 Mg Tab.Chew) 500 mg PO TID PRN PRN Reason: Heartburn Cholecalciferol (Cholecalciferol (Vitamin D3) 5,000 Unit Cap) 5,000 unit PO DAILY [facility] Last Admin: 03/07/21 08:46 Dose: 5,000 unit Documented by: Docusate Sodium (Docusate Sodium 100 Mg Cap) 100 mg PO BID [facility] Last Admin: 03/07/21 08:46 Dose: 100 mg Documented by: Famotidine (Famotidine 20 Mg Tab) 20 mg PO DAILY [facility] Last Admin: 03/07/21 08:46 Dose: 20 mg Documented by: Fluticasone Propionate (Fluticasone Propionate Nasal [place] 16 Gm Bottle) 0 gm NASBOTH DAILY [facility] Last Admin: 03/07/21 08:46 Dose: 2 sprays Documented by: Heparin Sodium (Porcine) (Heparin Sodium 5,000 Units/Ml Vial) 5,000 units SUBCUT Q8H [facility] Last Admin: 03/07/21 13:38 Dose: 5,000 units Documented by: Sodium Chloride (Normal Saline) 1,000 mls @ 75 mls/hr IV ASDIRECTED [facility] Last Admin: 03/07/21 05:39 Dose: 75 mls/hr Documented by: Piperacillin Sod/Tazobactam (Sod 4.5 gm/ Sodium Chloride) 100 mls @ 25 mls/hr IV Q8H [facility] Last Admin: 03/07/21 05:41 Dose: 25 mls/hr Documented by: Vancomycin HCl 1 gm/ Sodium (Chloride) 250 mls @ 250 mls/hr IV Q12H [facility] Last Admin: 03/07/21 04:24 Dose: 250 mls/hr Documented by: Levothyroxine Sodium (Levothyroxine 88 Mcg Tab) 88 mcg PO ACBREAKFAST [facility] Last Admin: 03/07/21 05:41 Dose: 88 mcg Documented by: Ketotifen 5 Ml (Bottle Ptom) 1 drop EYEBOTH BID PRN PRN Reason: Itching Ondansetron HCl (Ondansetron 4 Mg Tab.Dis) 4 mg PO Q4H PRN PRN Reason: nausea, able to take PO Oxycodone HCl (Oxycodone 5 Mg Tab) 5 mg PO Q4H PRN PRN Reason: Pain (moderate 4-6) Polyethylene Glycol (Polyethylene Glycol 3350 Powder 17 Gm Packet) 17 gm PO DAILY PRN PRN Reason: Constipation Sertraline HCl (Sertraline 25 Mg Tab) 25 mg PO DAILY [facility] Last Admin: 03/07/21 08:46 Dose: 25 mg Documented by: Vancomycin HCl (Pharmacy To Dose - Vancomycin) 1 dose .XX ASDIRECTED PRN PRN Reason: RX TO DOSE VANCO Discontinued Medications Diphenhydramine HCl (Diphenhydramine 50 Mg/Ml Sdv) 25 mg IVPUSH ONETIME ONE Stop: 03/06/21 12:29 Last Admin: 03/06/21 12:35 Dose: 25 mg Documented by: Famotidine (Famotidine 20 Mg/2 Ml Sdv) 40 mg IVPUSH ONETIME ONE Stop: 03/06/21 12:29 Last Admin: 03/06/21 12:39 Dose: 40 mg Documented by: Furosemide (Furosemide 20 Mg/2 Ml Vial) 20 mg IVPUSH NOW ONE Stop: 03/07/21 13:11 Last Admin: 03/07/21 13:33 Dose: 20 mg Documented by: Vancomycin HCl 1 gm/Vancomycin HCl 500 mg/ Sodium Chloride 500 mls @ 250 mls/hr IV ONETIME ONE Stop: 03/06/21 15:29 Last Admin: 03/06/21 16:44 Dose: 250 mls/hr Documented by: Piperacillin Sod/Tazobactam (Sod 4.5 gm/ Sodium Chloride) 100 mls @ 200 mls/hr IV ONETIME ONE Stop: 03/06/21 13:59 Last Admin: 03/06/21 15:28 Dose: 200 mls/hr Documented by: Aztreonam 1 gm/ Sodium (Chloride) 50 mls @ 100 mls/hr IV Q12H [facility] Last Admin: 03/07/21 01:21 Dose: 100 mls/hr Documented by: Sodium Chloride (Normal Saline) 100 mls @ 60 mls/hr IV ASDIRECTED [facility] Iopamidol (Iopamidol 755 Mg/Ml 100 Ml Bottle) 100 ml IVPUSH ONETIME ONE Stop: 03/06/21 12:14 Last Admin: 03/06/21 13:07 Dose: 100 ml Documented by: Potassium Chloride (Potassium Chloride 20 Meq Tab.Er) 40 meq PO ONETIME ONE Stop: 03/07/21 13:46 Sodium Chloride (Sodium Chloride 0.9% 10 Ml Syringe) 10 ml FLUSH ONETIME ONE Stop: 03/06/21 12:14 Last Admin: 03/06/21 13:07 Dose: 10 ml Documented by: - Exam Urinary Catheter Total Time: 0Days 0Hours Physical Findings Comments:: Gen: in chair NAD HEENT: NCAT EOMI MMM CV: RRR normal s1 s2 Lungs: Bibasilar crackles Abd: Soft, nt, nd Ext: Trace edema MSK: age appropriate muscle mass - Patient Data Lab Results Last 24 hrs: Laboratory Results - last 24 hr 03/06/21 03/06/21 03/07/21 Range/Units 12:25 16:00 05:10 WBC 16.29 H (3.98-10.04) K/mm3 RBC 3.75 L (3.98-5.22) M/mm3 Hgb 10.3 L (11.2-15.7) gm/dl Hct 33.1 L (34.1-44.9) % MCV 88.3 (79.4-94.8) fl MCH 27.5 (25.6-32.2) pg MCHC 31.1 L (32.2-35.5) g/dl RDW Std Deviation 59.1 H (36.4-46.3) fL Plt Count 236 (182-369) K/mm3 MPV 11.1 (9.4-12.3) fl Neut % (Auto) 89.5 H (34.0-71.1) % Lymph % (Auto) 2.6 L (19.3-51.7) % [place] % (Auto) 7.3 (4.7-12.5) % Eos % (Auto) 0 L (0.7-5.8) Baso % (Auto) 0.2 (0.1-1.2) % Neut # (Auto) 14.58 H (1.56-6.13) K/mm3 Lymph # (Auto) 0.42 L (1.18-3.74) K/mm3 [place] # (Auto) 1.19 H (0.24-0.36) K/mm3 Eos # (Auto) 0.00 L (0.04-0.36) K/mm3 Baso # (Auto) 0.03 (0.01-0.08) K/mm3 Manual Slide Review Abnormal smear VBG pH (7.30-7.40) VBG pCO2 (41-51) mmHg VBG pO2 (40-80) mmHG VBG HCO3 (22-26) meq/L VBG O2 Saturation VBG Base Excess (-4.0-2.0) O2 Delivery Device Oxygen Flow Rate Sodium (136-145) mEq/L Potassium (3.5-5.1) mEq/L Chloride (98-107) mEq/L Carbon Dioxide (21-32) mEq/L Anion Gap (5-15) BUN (7-18) mg/dL Creatinine (0.55-1.02) mg/dL Est Cr Clr Drug Dosing mL/min Estimated GFR (MDRD) (>60) mL/min BUN/Creatinine Ratio (14-18) Glucose (70-99) mg/dL Calcium (8.5-10.1) mg/dL Magnesium (1.8-2.4) mg/dL Total Bilirubin (0.2-1.0) mg/dL AST (15-37) U/L ALT (14-59) U/L Alkaline Phosphatase (46-116) U/L C-Reactive Protein (<1.0) mg/dL Total Protein (6.4-8.2) g/dl Albumin (3.4-5.0) g/dl Globulin gm/dL Albumin/Globulin Ratio (1-2) SARS-CoV-2 RNA (HUMAIRA) Negative (NEGATIVE) MRSA (PCR) Negative 03/07/21 03/07/21 Range/Units 05:10 12:56 WBC (3.98-10.04) K/mm3 RBC (3.98-5.22) M/mm3 Hgb (11.2-15.7) gm/dl Hct (34.1-44.9) % MCV (79.4-94.8) fl MCH (25.6-32.2) pg MCHC (32.2-35.5) g/dl RDW Std Deviation (36.4-46.3) fL Plt Count (182-369) K/mm3 MPV (9.4-12.3) fl Neut % (Auto) (34.0-71.1) % Lymph % (Auto) (19.3-51.7) % [place] % (Auto) (4.7-12.5) % Eos % (Auto) (0.7-5.8) Baso % (Auto) (0.1-1.2) % Neut # (Auto) (1.56-6.13) K/mm3 Lymph # (Auto) (1.18-3.74) K/mm3 [place] # (Auto) (0.24-0.36) K/mm3 Eos # (Auto) (0.04-0.36) K/mm3 Baso # (Auto) (0.01-0.08) K/mm3 Manual Slide Review VBG pH 7.53 H (7.30-7.40) VBG pCO2 24.6 L (41-51) mmHg VBG pO2 99.0 H (40-80) mmHG VBG HCO3 20.2 L (22-26) meq/L VBG O2 Saturation 98.7 VBG Base Excess -1.1 (-4.0-2.0) O2 Delivery Device Nasal cannula Oxygen Flow Rate 3.0 Sodium 138 (136-145) mEq/L Potassium 3.5 (3.5-5.1) mEq/L Chloride 101 (98-107) mEq/L Carbon Dioxide 25 (21-32) mEq/L Anion Gap 15.5 H (5-15) BUN 17 (7-18) mg/dL Creatinine 1.3 H (0.55-1.02) mg/dL Est Cr Clr Drug Dosing 30.30 mL/min Estimated GFR (MDRD) 40 (>60) mL/min BUN/Creatinine Ratio 13.1 L (14-18) Glucose 103 H (70-99) mg/dL Calcium 7.9 L (8.5-10.1) mg/dL Magnesium 2.0 (1.8-2.4) mg/dL Total Bilirubin 0.8 (0.2-1.0) mg/dL AST 26 (15-37) U/L ALT 36 (14-59) U/L Alkaline Phosphatase 117 H (46-116) U/L C-Reactive Protein 30.1 H* (<1.0) mg/dL Total Protein 6.3 L (6.4-8.2) g/dl Albumin 2.0 L (3.4-5.0) g/dl Globulin 4.3 gm/dL Albumin/Globulin Ratio 0.5 L (1-2) SARS-CoV-2 RNA (HUMAIRA) (NEGATIVE) MRSA (PCR) Result Diagrams: 03/07/21 05:10 03/07/21 05:10 Sepsis Event Note - Evaluation Sepsis Screening Result: No Definite Risk - Focused Exam Vital Signs: Vital Signs Temp Pulse Resp BP Pulse Ox Pulse Ox 03/07/21 12:35 94 L 03/07/21 12:00 98.8 F 103 H 24 H 118/68 90 L 03/07/21 08:45 97.5 F 03/07/21 08:23 69 20 105/58 L 99 03/07/21 05:02 98.4 F 95 93 L 03/07/21 04:33 102.2 F H 102 H 24 H 118/47 L 94 L - Problem List Review Problem List Initiated/Reviewed/Updated: Yes - My Orders Last 24 Hours: My Active Orders 03/07/21 12:35 RT Aerosol Therapy [RC] ASDIRECTED Albuterol/Ipratropium [DuoNeb 3.0-0.5 MG/3 ML] 3 ml NEB Q6HRRT 03/07/21 12:55 CXR [Chest 1V Frontal] [CR] Stat 03/07/21 12:57 RT BiPAP/CPAP [RC] ASDIRECTED 03/07/21 13:27 PRO B-TYPE NATRIUR PEPT,BNPPRO [CHEM] Stat 03/07/21 13:46 Add On Test [COMM] Routine 03/07/21 13:47 Add On Test [COMM] Routine - Assessment Assessment:: q - Plan Plan:: The patient is a 80-year-old lady who has been readmitted secondary to pneumonia. She had been previously treated with antibiotics for urinary tract infection. The patient also has a history of DVT and currently has an elevated D-dimer. I have ordered the CT scan with of her chest with PE protocol. The patient will be admitted as an inpatient secondary to hospital-acquired pneumonia. I have elected to place the patient on vancomycin with pharmacy to dose along with Zosyn 4.5 g IV every 8 hours. The patient has an adverse reaction to penicillin as opposed to a true allergy. She also be started on aztreonam 1 g every 8 hours. The patient will be kept on DVT prophylaxis with use of heparin and this will be increased as necessary if PE is present. PT OT is also been reordered for the patient. To have a regular diet as tolerated. Have also placed the patient on telemetry. Repeat laboratory studies have been ordered none electrolytes will be replaced as necessary. 03/07 This is a 80F admitted on 03/06 for presumed HCAP, CT PE negative for PE with possible infiltrate. recent hx of UTI 1. Presumed HCAP now with acute hypoxic resp failure 2. Possible CHF exacerbation 3. Recent hx of UTI with [place] 4. hx of hypothyroidism 5. Hx of depression 6. Hypokalemia Plan -repeat CXR -check procal -check VBG -check BNP -lasix X1 -monitor I&O -potassium replacement -antibiotics: Vanco +zosyn -repeat UA -CPAP/BIPAP -RT consult Code-full DVT ppx-heparin subq
--- NOTE | 2021-03-07 14:06 | CR ---
Chest: Portable view of the chest was obtained. Comparison: Prior chest CT study of 03/06/21, chest x-ray of 03/06/21 and 03/03/21. Increasing density is seen throughout the left lung from prior studies. Stable density throughout the right lung is seen. Heart size and mediastinum are unchanged. Bony structures show nothing acute. Impression: 1. Slight increasing density throughout the left chest from prior studies. Please correlate if this represents asymmetric vascular congestion or represents infectious change from diffuse bronchitis/pneumonia. Diagnostic code #3
[2021-03-07] MEDS ORDERED: Furosemide 40 MG/4 ML VIAL IVPUSH ONE (15:30)
[2021-03-08] MEDS: Albuterol/Ipratropium 3.0-0.5 MG/3 ML Neb Soln NEB SCH ×3 (02:53→14:15)
[2021-03-08] MEDS: Piperacillin/Tazobactam 4.5 GM in Sodium Chloride 0.9% 100 ML IV SCH ×2 (04:35→12:43)
[2021-03-08] MEDS: Heparin Sodium 5,000 Units/ML Vial SUBCUT SCH ×2 (05:16→16:45)
[2021-03-08] MEDS: Levothyroxine 88 MCG Tab PO SCH (05:16)
[2021-03-08] MEDS: Fluticasone Propionate Nasal Spray 16 GM Bottle NASBOTH SCH (08:08)
[2021-03-08] MEDS: Sertraline 25 MG Tab PO SCH (08:09)
[2021-03-08] MEDS: Famotidine 20 MG Tab PO SCH (08:10)
[2021-03-08] MEDS: Cholecalciferol (Vitamin D3) 5,000 UNIT Cap PO SCH (08:10)
[2021-03-08] MEDS: Docusate Sodium 100 MG Cap PO SCH (08:10)
[2021-03-08] MEDS ORDERED: Benzocaine/Cetylpyridinium/Menthol Lozenge MUCMEM PRN ×2 (10:41→11:39)
[2021-03-08] MEDS ORDERED: Carboxymethylcellulose Sodium 1% Ophth Gel 15 ML Bottle EYEBOTH PRN (12:17)
[2021-03-08] MEDS ORDERED: Potassium Chloride 20 MEQ Tab.ER PO SCH (12:30)
[2021-03-08] MEDS ORDERED: LORazepam 2 MG/ML SDV ONE (14:38)
[2021-03-08] MEDS ORDERED: LORazepam 2 MG/ML SDV IVPUSH ONE (14:38)
[2021-03-08] MEDS ORDERED: propofoL 100 ML IV SCH (15:00)
[2021-03-08] MEDS ORDERED: Lactated Ringers 1,000 ML ONE (15:08)
[2021-03-08] MEDS ORDERED: fentaNYL 100 MCG/2 ML SDV IVPUSH ONE (15:10)
[2021-03-08] MEDS ORDERED: Propofol 200 MG/20 ML SDV IVPUSH ONE (15:11)
[2021-03-08] MEDS ORDERED: Succinylcholine 200 MG/10 ML MDV IV ONE (15:11)
[2021-03-08] MEDS: Phenylephrine 1% 10 MG/ML SDV IVPUSH ONE ×2 (15:17→15:23)
[2021-03-08] MEDS ORDERED: Phenylephrine 10 MG in Sodium Chloride 0.9% 99 ML IV SCH (15:23)
[2021-03-08] MEDS ORDERED: Midazolam 1 MG/ML 2 ML SDV IVPUSH ONE (15:26)
[2021-03-08] MEDS ORDERED: Phenylephrine 10 MG in Sodium Chloride 0.9% 99 ML IVPUSH ONE (15:30)
[2021-03-08] MEDS: propofoL 100 ML ONE ×2 (15:49→16:30)
--- NOTE | 2021-03-08 16:04 | CR ---
Chest: Supine view of the chest was obtained. Comparison: Prior chest x-ray performed on 03/07/21. Endotracheal tube is seen. Tip lies about 1.8 cm above the [place]. Endotracheal tube is seen coursing off the inferior study in the region of the stomach. Diffuse increased density is noted throughout both sides of chest which are stable. Heart size and mediastinum are normal. No acute osseous finding is seen. Impression: 1. Stable chest x-ray as described above. 2. Tip of endotracheal tube is seen which lies about 1.8 cm above the [place]. 3. Satisfactory position of nasogastric tube. Diagnostic code #3
--- NOTE | 2021-03-08 16:24 | PCM.DCSUM1 ---
Discharge Summary - Hospital Course Free Text/Narrative:: This is a 80F with pmhx of CKD stage III, recurrent UTI, hypothyroidism; depression who presented to ED on 03/06 and was diagnosed with Sepsis secondary to HCAP. In the ED CT PE study was negative for PE. She was started on vancomycin, zosyn, and aztreonam. She was given IVF resuscitation. On 03/07 she developed flash pulmonary edema, CXR consistent with pulmonary vascular congestion. She was started on lasix and BIPAP. Antibiotics were narrowed to Vancomycin and zosyn. She had improvement of respiratory status and was weaned down to 3 liters supplemental oxygen. Her blood culture today grew enterococcus faecalis. This afternoon the patient had rapid response activated for respiratory failure. The patients lips were purple, her RR was in the 40s, she was tachycardic and using accessory muscles to support in breathing. She was intubated for airway protection. Her case was discussed with critical care service at [facility]. She will be transferred to their ICU unit nder the care of Dr. Hernandez who graciously accepted the patient in transfer. Discharge Diagnosis 1. Septic Shock 2. Presumed HCAP 3. Enterococcus Faecalis bacteremia 4. Acute on chronic hypoxic and hypercapnic respiratory failure 5. Hypokalemia 6. Lactic Acidosis 7. KOLTON/Hx of CKD Stage III 8. Hx of Recurrent UTI 9. Suspected Diastolic CHF exacerbation 10. Generalized Weakness 11. Hx of Hypothyroidism 12. Hx of Depression 13. Hx of COVID 19 PNA 14. Hx of HTN 15. Hx of lower extremity DVT Diagnosis: Stroke: No - Discharge Data Discharge Date: 03/08/21 Discharge Disposition: DC/Tfer to Acute Hospital 02 Condition: Critical - Referral to Home Health Primary Care Physician: Liu Mars MD - Discharge Diagnosis/Problem(s) (1) Sepsis SNOMED Code(s): 74855044 ICD Code: A41.9 - SEPSIS, UNSPECIFIED ORGANISM Status: Acute Priority: High Current Visit: Yes Qualifiers: Sepsis type: sepsis due to unspecified organism Sepsis acute organ dysfunction status: with acute organ dysfunction Severe sepsis acute organ dysfunction type: acute respiratory failure Acute respiratory failure type: with hypoxia Severe sepsis shock status: with septic shock Qualified Code(s): A41.9 - Sepsis, unspecified organism; R65.21 - Severe sepsis with septic shock; J96.01 - Acute respiratory failure with hypoxia - Patient Summary/Data Consults: Consultations 03/06/21 12:02 OT Evaluation and Treatment [CONS] Routine PT Evaluation and Treatment [CONS] Routine - Discharge Plan *PRESCRIPTION DRUG MONITORING PROGRAM REVIEWED*: Not Applicable *COPY OF PRESCRIPTION DRUG MONITORING REPORT IN PATIENT ANGUS: Not Applicable Home Medications: Home Meds Levothyroxine [Synthroid] 88 mcg PO DAILY 04/24/20 [History] Acetaminophen [Non-Aspirin Extra Strength] 1,000 mg PO BEDTIME PRN 09/02/20 [History] Benzonatate [Tessalon Perle] 100 mg PO QID PRN 09/02/20 [History] Betamethasone Valerate [Valisone 0.1% Crm] 1 applic TOP Q8H PRN 09/02/20 [History] Calcium Carbonate [Tums] 500 mg PO TID PRN 09/02/20 [History] Docusate Sodium 100 mg PO BID 09/02/20 [History] Ketotifen [Ketotifen 0.025% Ophth Soln] 1 drop EYEBOTH BID PRN 09/02/20 [History] Multivitamin [Daily Multiple Vitamin] 1 each PO DAILY 09/02/20 [History] Sertraline [Zoloft] 25 mg PO DAILY 09/02/20 [History] Triamcinolone Acetonide [Triamcinolone Acetonide 0.1% Crm] 1 applic TOP BID PRN 09/05/20 [History] Sodium Chloride [Saline Nasal [place]] 1 spray NS QID PRN 09/20/20 [History] Cholecalciferol (Vitamin D3) [Vitamin D3] 5,000 unit PO DAILY 03/03/21 [History] Famotidine [Pepcid] 20 mg PO DAILY 03/03/21 [History] PEG 400/Hypromellose/Glycerin [Artificial Tears Drops] 1 drop OP Q4H PRN 03/03/21 [History] Fluticasone Propionate [Flonase Allergy Relief] 2 sprays NASBOTH DAILY 03/04/21 [History] Sulfamethoxazole/Trimethoprim [Bactrim 400-80 MG] 1 each PO BID #10 tablet 03/05/21 [Rx] Oxygen Therapy Mode: Mechanical Ventilation Patient Handouts: Sepsis, Self Care, Adult Forms: ED Department Discharge Referrals: Liu Mars MD [Primary Care Provider] - - Discharge Summary/Plan Comment DC Time >30 min.: Yes - General Info Date of Service: 03/08/21 - Patient Data Vitals - Most Recent: Last Vital Signs Temp 97.9 F 03/08/21 11:41 Pulse 93 03/08/21 11:41 Resp 20 03/08/21 11:41 BP 130/62 03/08/21 11:41 Pulse Ox 74 L 03/08/21 15:47 Weight - Most Recent: 222 lb 4.8 oz I&O - Last 24 hours: Intake & Output 03/08/21 03/08/21 03/08/21 06:59 14:59 22:59 Intake Total 850 120 240 Output Total 500 Balance 350 120 240 Lab Results - Last 24 hrs: Laboratory Results - last 24 hr 03/07/21 03/08/21 03/08/21 Range/Units 20:40 09:51 09:51 WBC 20.75 H (3.98-10.04) K/mm3 RBC 3.78 L (3.98-5.22) M/mm3 Hgb 10.7 L (11.2-15.7) gm/dl Hct 32.3 L (34.1-44.9) % MCV 85.4 (79.4-94.8) fl MCH 28.3 (25.6-32.2) pg MCHC 33.1 (32.2-35.5) g/dl RDW Std Deviation 58.4 H (36.4-46.3) fL Plt Count 220 (182-369) K/mm3 MPV 10.3 (9.4-12.3) fl Sodium 140 (136-145) mEq/L Potassium 3.3 L (3.5-5.1) mEq/L Chloride 101 (98-107) mEq/L Carbon Dioxide 26 (21-32) mEq/L Anion Gap 16.3 H (5-15) BUN 26 H (7-18) mg/dL Creatinine 1.7 H (0.55-1.02) mg/dL Est Cr Clr Drug Dosing 23.17 mL/min Estimated GFR (MDRD) 29 (>60) mL/min BUN/Creatinine Ratio 15.3 (14-18) Glucose 143 H (70-99) mg/dL Lactic Acid (0.4-2.0) mmol/L Calcium 8.2 L (8.5-10.1) mg/dL Magnesium 2.2 (1.8-2.4) mg/dL Total Bilirubin (0.2-1.0) mg/dL AST (15-37) U/L ALT (14-59) U/L Alkaline Phosphatase (46-116) U/L Troponin I (0.00-0.056) ng/mL Total Protein (6.4-8.2) g/dl Albumin (3.4-5.0) g/dl Globulin gm/dL Albumin/Globulin Ratio (1-2) Urine Color Yellow (Yellow) Urine Appearance Clear (Clear) Urine pH 6.0 (5.0-8.0) Ur Specific [place] 1.015 (1.005-1.030) Urine Protein Negative (Negative) Urine Glucose (UA) Negative (Negative) Urine Ketones Negative (Negative) Urine Occult Blood Trace-lysed H (Negative) Urine Nitrite Negative (Negative) Urine Bilirubin Negative (Negative) Urine Urobilinogen 1.0 (0.2-1.0) Ur Leukocyte Esterase Negative (Negative) U Hyaline Cast (Auto) 5-10 H (0-5) /lpf Urine RBC 0-5 (0-5) /hpf Urine WBC 0-5 (0-5) /hpf Ur Squamous Epith Cells 5-10 H (0-5) /hpf Urine Bacteria Few (FEW) /hpf Urine Mucus Few (FEW) /hpf Vancomycin Trough (10.0-20.0) 03/08/21 03/08/21 03/08/21 Range/Units 14:58 14:58 14:58 WBC 18.16 H (3.98-10.04) K/mm3 RBC 4.01 (3.98-5.22) M/mm3 Hgb 11.0 L (11.2-15.7) gm/dl Hct 35.2 (34.1-44.9) % MCV 87.8 (79.4-94.8) fl MCH 27.4 (25.6-32.2) pg MCHC 31.3 L (32.2-35.5) g/dl RDW Std Deviation 60.9 H (36.4-46.3) fL Plt Count 293 (182-369) K/mm3 MPV 10.9 (9.4-12.3) fl Sodium 136 (136-145) mEq/L Potassium 3.9 (3.5-5.1) mEq/L Chloride 99 (98-107) mEq/L Carbon Dioxide 26 (21-32) mEq/L Anion Gap 14.9 (5-15) BUN 27 H (7-18) mg/dL Creatinine 1.8 H (0.55-1.02) mg/dL Est Cr Clr Drug Dosing 21.88 mL/min Estimated GFR (MDRD) 27 (>60) mL/min BUN/Creatinine Ratio 15.0 (14-18) Glucose 135 H (70-99) mg/dL Lactic Acid (0.4-2.0) mmol/L Calcium 8.4 L (8.5-10.1) mg/dL Magnesium 2.2 (1.8-2.4) mg/dL Total Bilirubin 0.5 (0.2-1.0) mg/dL AST 37 (15-37) U/L ALT 44 (14-59) U/L Alkaline Phosphatase 138 H (46-116) U/L Troponin I < 0.017 (0.00-0.056) ng/mL Total Protein 7.1 (6.4-8.2) g/dl Albumin 2.2 L (3.4-5.0) g/dl Globulin 4.9 gm/dL Albumin/Globulin Ratio 0.5 L (1-2) Urine Color (Yellow) Urine Appearance (Clear) Urine pH (5.0-8.0) Ur Specific [place] (1.005-1.030) Urine Protein (Negative) Urine Glucose (UA) (Negative) Urine Ketones (Negative) Urine Occult Blood (Negative) Urine Nitrite (Negative) Urine Bilirubin (Negative) Urine Urobilinogen (0.2-1.0) Ur Leukocyte Esterase (Negative) U Hyaline Cast (Auto) (0-5) /lpf Urine RBC (0-5) /hpf Urine WBC (0-5) /hpf Ur Squamous Epith Cells (0-5) /hpf Urine Bacteria (FEW) /hpf Urine Mucus (FEW) /hpf Vancomycin Trough 27.2 H (10.0-20.0) 07/28/21 Range/Units 14:58 WBC (3.98-10.04) K/mm3 RBC (3.98-5.22) M/mm3 Hgb (11.2-15.7) gm/dl Hct (34.1-44.9) % MCV (79.4-94.8) fl MCH (25.6-32.2) pg MCHC (32.2-35.5) g/dl RDW Std Deviation (36.4-46.3) fL Plt Count (182-369) K/mm3 MPV (9.4-12.3) fl Sodium (136-145) mEq/L Potassium (3.5-5.1) mEq/L Chloride (98-107) mEq/L Carbon Dioxide (21-32) mEq/L Anion Gap (5-15) BUN (7-18) mg/dL Creatinine (0.55-1.02) mg/dL Est Cr Clr Drug Dosing mL/min Estimated GFR (MDRD) (>60) mL/min BUN/Creatinine Ratio (14-18) Glucose (70-99) mg/dL Lactic Acid 4.4 H* (0.4-2.0) mmol/L Calcium (8.5-10.1) mg/dL Magnesium (1.8-2.4) mg/dL Total Bilirubin (0.2-1.0) mg/dL AST (15-37) U/L ALT (14-59) U/L Alkaline Phosphatase (46-116) U/L Troponin I (0.00-0.056) ng/mL Total Protein (6.4-8.2) g/dl Albumin (3.4-5.0) g/dl Globulin gm/dL Albumin/Globulin Ratio (1-2) Urine Color (Yellow) Urine Appearance (Clear) Urine pH (5.0-8.0) Ur Specific [place] (1.005-1.030) Urine Protein (Negative) Urine Glucose (UA) (Negative) Urine Ketones (Negative) Urine Occult Blood (Negative) Urine Nitrite (Negative) Urine Bilirubin (Negative) Urine Urobilinogen (0.2-1.0) Ur Leukocyte Esterase (Negative) U Hyaline Cast (Auto) (0-5) /lpf Urine RBC (0-5) /hpf Urine WBC (0-5) /hpf Ur Squamous Epith Cells (0-5) /hpf Urine Bacteria (FEW) /hpf Urine Mucus (FEW) /hpf Vancomycin Trough (10.0-20.0) WES Results - Last 24 hrs: Microbiology 03/06/21 10:30 Blood Culture - Preliminary Blood - Venous - Lab Draw Enterococcus Faecalis 03/06/21 10:30 Bacteria Detection (PCR) - Final Blood 03/06/21 10:15 Blood Culture - Preliminary Blood - Venous - Iv Start Med Orders - Current: Current Medications Acetaminophen (Acetaminophen 325 Mg Tab) 650 mg PO Q4H PRN PRN Reason: Pain (Mild 1-3)/fever Last Admin: 03/07/21 04:30 Dose: 650 mg Documented by: Albuterol/Ipratropium (Albuterol/Ipratropium 3.0-0.5 Mg/3 Ml Neb Soln) 3 ml NEB Q6HRRT [facility] Last Admin: 03/08/21 14:15 Dose: 3 ml Documented by: Artificial Tears (Carboxymethylcellulose Sodium 1% Ophth Gel 15 Ml Bottle) 0 ml EYEBOTH BID PRN PRN Reason: Dry Eyes Last Admin: 03/08/21 12:47 Dose: 1 drop Documented by: Benzocaine/Menthol (Benzocaine/Cetylpyridinium/Menthol Lozenge) 1 lozenge MUCMEM 5XDAY PRN PRN Reason: Pain Benzonatate (Benzonatate 100 Mg Cap) 100 mg PO QID PRN PRN Reason: Cough Betamethasone Valerate (Betamethasone Valerate 0.1% Crm 15 Gm Tube) 0 gm TOP Q8H PRN PRN Reason: Itching Calcium Carbonate/Glycine (Calcium Carbonate 500 Mg Tab.Chew) 500 mg PO TID PRN PRN Reason: Heartburn Cholecalciferol (Cholecalciferol (Vitamin D3) 5,000 Unit Cap) 5,000 unit PO DAILY [facility] Last Admin: 03/08/21 08:10 Dose: 5,000 unit Documented by: Docusate Sodium (Docusate Sodium 100 Mg Cap) 100 mg PO BID [facility] Last Admin: 03/08/21 08:10 Dose: 100 mg Documented by: Famotidine (Famotidine 20 Mg Tab) 20 mg PO DAILY [facility] Last Admin: 03/08/21 08:10 Dose: 20 mg Documented by: Fluticasone Propionate (Fluticasone Propionate Nasal [place] 16 Gm Bottle) 0 gm NASBOTH DAILY [facility] Last Admin: 03/08/21 08:08 Dose: 2 sprays Documented by: Heparin Sodium (Porcine) (Heparin Sodium 5,000 Units/Ml Vial) 5,000 units SUBCUT Q8H [facility] Last Admin: 03/08/21 05:16 Dose: 5,000 units Documented by: Piperacillin Sod/Tazobactam (Sod 4.5 gm/ Sodium Chloride) 100 mls @ 25 mls/hr IV Q8H [facility] Last Admin: 03/08/21 12:43 Dose: 25 mls/hr Documented by: Potassium Chloride 10 meq/ (Premix) 100 mls @ 100 mls/hr IV Q1H [facility] Stop: 03/08/21 19:29 Levothyroxine Sodium (Levothyroxine 88 Mcg Tab) 88 mcg PO ACBREAKFAST [facility] Last Admin: 03/08/21 05:16 Dose: 88 mcg Documented by: Ketotifen 5 Ml (Bottle Ptom) 1 drop EYEBOTH BID PRN PRN Reason: Itching Ondansetron HCl (Ondansetron 4 Mg Tab.Dis) 4 mg PO Q4H PRN PRN Reason: nausea, able to take PO Oxycodone HCl (Oxycodone 5 Mg Tab) 5 mg PO Q4H PRN PRN Reason: Pain (moderate 4-6) Polyethylene Glycol (Polyethylene Glycol 3350 Powder 17 Gm Packet) 17 gm PO DAILY PRN PRN Reason: Constipation Potassium Chloride (Potassium Chloride 20 Meq Tab.Er) 40 meq PO BID [facility] Last Admin: 03/08/21 12:43 Dose: 40 meq Documented by: Sertraline HCl (Sertraline 25 Mg Tab) 25 mg PO DAILY [facility] Last Admin: 03/08/21 08:09 Dose: 25 mg Documented by: Vancomycin HCl (Pharmacy To Dose - Vancomycin) 1 dose .XX ASDIRECTED PRN PRN Reason: RX TO DOSE VANCO Discontinued Medications Benzocaine/Menthol (Benzocaine/Cetylpyridinium/Menthol Lozenge) 1 lozenge MUCMEM Q2H PRN PRN Reason: Sore Throat Last Admin: 03/08/21 11:21 Dose: 1 lozenge Documented by: Diphenhydramine HCl (Diphenhydramine 50 Mg/Ml Sdv) 25 mg IVPUSH ONETIME ONE Stop: 03/06/21 12:29 Last Admin: 03/06/21 12:35 Dose: 25 mg Documented by: Famotidine (Famotidine 20 Mg/2 Ml Sdv) 40 mg IVPUSH ONETIME ONE Stop: 03/06/21 12:29 Last Admin: 03/06/21 12:39 Dose: 40 mg Documented by: Furosemide (Furosemide 20 Mg/2 Ml Vial) 20 mg IVPUSH NOW ONE Stop: 03/07/21 13:11 Last Admin: 03/07/21 13:33 Dose: 20 mg Documented by: Furosemide (Furosemide 40 Mg/4 Ml Vial) 40 mg IVPUSH NOW ONE Stop: 03/07/21 15:31 Last Admin: 03/07/21 14:34 Dose: 40 mg Documented by: Sodium Chloride (Normal Saline) 1,000 mls @ 75 mls/hr IV ASDIRECTED [facility] Stop: 03/07/21 11:00 Last Admin: 03/07/21 05:39 Dose: 75 mls/hr Documented by: Vancomycin HCl 1 gm/Vancomycin HCl 500 mg/ Sodium Chloride 500 mls @ 250 mls/hr IV ONETIME ONE Stop: 03/06/21 15:29 Last Admin: 03/06/21 16:44 Dose: 250 mls/hr Documented by: Piperacillin Sod/Tazobactam (Sod 4.5 gm/ Sodium Chloride) 100 mls @ 200 mls/hr IV ONETIME ONE Stop: 03/06/21 13:59 Last Admin: 03/06/21 15:28 Dose: 200 mls/hr Documented by: Aztreonam 1 gm/ Sodium (Chloride) 50 mls @ 100 mls/hr IV Q12H [facility] Last Admin: 03/07/21 01:21 Dose: 100 mls/hr Documented by: Sodium Chloride (Normal Saline) 100 mls @ 60 mls/hr IV ASDIRECTED [facility] Vancomycin HCl 1 gm/ Sodium (Chloride) 250 mls @ 250 mls/hr IV Q12H [facility] Last Admin: 03/08/21 03:00 Dose: 250 mls/hr Documented by: Propofol (Diprivan 100 Ml) Confirm Administered Dose 100 mls @ as directed .ROUTE .STK-MED ONE Stop: 03/08/21 15:00 Lactated Ringer's (Ringers, Lactated) Confirm Administered Dose 1,000 mls @ as directed .ROUTE .STK-MED ONE Stop: 03/08/21 15:09 Iopamidol (Iopamidol 755 Mg/Ml 100 Ml Bottle) 100 ml IVPUSH ONETIME ONE Stop: 03/06/21 12:14 Last Admin: 03/06/21 13:07 Dose: 100 ml Documented by: Lorazepam (Lorazepam 2 Mg/Ml Sdv) 0.5 mg IVPUSH ONETIME ONE Stop: 03/08/21 14:39 Last Admin: 03/08/21 14:41 Dose: 0.5 mg Documented by: Lorazepam (Lorazepam 2 Mg/Ml Sdv) Confirm Administered Dose 2 mg .ROUTE .STK-MED ONE Stop: 03/08/21 14:39 Potassium Chloride (Potassium Chloride 20 Meq Tab.Er) 40 meq PO ONETIME ONE Stop: 03/07/21 13:46 Last Admin: 03/07/21 14:28 Dose: 40 meq Documented by: Sodium Chloride (Sodium Chloride 0.9% 10 Ml Syringe) 10 ml FLUSH ONETIME ONE Stop: 03/06/21 12:14 Last Admin: 03/06/21 13:07 Dose: 10 ml Documented by: - Exam Physical Findings Comments:: Gen: Intubated and sedated HEENT: NCAT MMM Neck: Supple CV: Tachycardic; normal s1 s2 Lungs: Bibasilar crackles Abd: soft, nt, nd : lam in place Neuro: Intubated and sedated
[2021-03-08] MEDS: Potassium Chloride 10 MEQ in Premix Bag 1 BAG IV SCH ×2 (16:28→16:56)
--- NOTE | 2021-03-08 16:28 | PCM.SN.2 ---
- Free Text/Narrative Note: Anesthesia Note: Start: 1450 Stop: 1620 Anesthesia requested for intubation on 80 yr old female in CHF and diagnosed with pneumonia. Upon arrival patient sitting up high cohen's position and increased work of breathing noted. Hospitalist requested intubation with plan for patient to be transferred to receiving facility. Allergies reviewed, procedure explained to patient, and patient agreed to proceed. Patient placed in sniffing position. Preoxygenated with 100% FIO2. RSI with cricoid pressure noted. Time:(1510) (fentanyl 50mcg IV, 150mg propofol IV, 140mg sux's IV) 2mg versed given post intubation(1526), 10mg vecuronium followed.(1530) 7.0 ETT placed without difficulty. (secured 19 at the lip) (+ETCO2 noted and bilateral breath sounds noted) portable CXR also confirmed placement. 18 portuguese NG tube placed to LIS to left nare. Nursing staff placed lam catheter. 2 new IV sites started: 20 gauge to left inner wrist. 20 gauge to right outer wrist. Upon auscultation: bilateral breath sounds with crackles noted to left anterior chest. Blood pressure dropped transiently (58/40), (64/41), (88/74) with phenylephrine 100mcg times 1 and 200mcg times 2 boluses given. Patient responded well to pressor. Heart Rhythm: paroxysmal A-fib noted with ventricular rates in 120-130's. VSS: last Vs noted: 109/45, 120-130's 96% on 50%, temp: 100, resp:12 ventilator settings: peep +5/RESP: 12, FM=027, 96% on 50% FIO2 ICU nurse received orders for sedation via hospitalist. Propofol drip initiated, and levophed drip orders also received. Eyes taped shut for protection. Thank you! Giovanna STRAUSS
[2021-03-08] MEDS ORDERED: Lactated Ringers 750 ML IV SCH (16:30)
[2021-03-08] MEDS ORDERED: Norepinephrine 4 MG in Dextrose 5% in Water 246 ML IV SCH ×2 (16:30)
--- NOTE | 2021-03-08 20:24 | CR ---
Abdomen: Supine portable view of the abdomen is obtained. Comparison: No prior abdominal plain film study, prior CT abdomen and pelvis study 02/18/15. Nasogastric tube is seen. Tip lies within the stomach. Bowel gas pattern is normal. Calcification within the upper right abdomen is seen which is renal in origin involving the cortex. Additional calcification is seen within the left upper abdomen which could represent a calcification within the renal pelvis. Please correlate if patient has abdominal symptoms. Bony structures show nothing acute. Impression: 1. Satisfactory position of nasogastric tube. 2. Calcifications within the upper abdomen as described above. Diagnostic code #3
== END 2021-03-08 17:48 | DRG 871 ==
LOC: JD.ED 09:51 → JD.MS 11:56
PROVIDERS: ADMIT Internal Medicine; ATTEND Internal Medicine
DX: A41.81 Sepsis due to Enterococcus (principal); Y95 Nosocomial condition; H54.7 Unspecified visual loss; J18.9 Pneumonia, unspecified organism; N39.0 Urinary tract infection, site not specified; I10 Essential (primary) hypertension; R65.21 Severe sepsis with septic shock; J96.22 Acute and chronic respiratory failure with hypercapnia; R32 Unspecified urinary incontinence; M19.90 Unspecified osteoarthritis, unspecified site; J96.21 Acute and chronic respiratory failure with hypoxia; D03.9 Melanoma in situ, unspecified; Z88.1 Allergy status to other antibiotic agents; Z88.0 Allergy status to penicillin; Z88.8 Allergy status to other drugs, medicaments and biological substances; Z91.048 Other nonmedicinal substance allergy status; Z79.890 Hormone replacement therapy; Z79.899 Other long term (current) drug therapy; Z20.822 Contact with and (suspected) exposure to COVID-19; I50.33 Acute on chronic diastolic (congestive) heart failure; N17.9 Acute kidney failure, unspecified; I13.0 Hypertensive heart and chronic kidney disease with heart failure and stage 1 through stage 4 chronic kidney disease, or unspecified chronic kidney disease; N18.30 Chronic kidney disease, stage 3 unspecified; E03.9 Hypothyroidism, unspecified; F32.9 Major depressive disorder, single episode, unspecified; K59.09 Other constipation; F41.9 Anxiety disorder, unspecified; R53.1 Weakness; E87.6 Hypokalemia; Z86.16 Personal history of COVID-19; Z86.718 Personal history of other venous thrombosis and embolism; Z79.01 Long term (current) use of anticoagulants; Z87.01 Personal history of pneumonia (recurrent); Z87.19 Personal history of other diseases of the digestive system; Z98.890 Other specified postprocedural states; Z90.89 Acquired absence of other organs; Z90.49 Acquired absence of other specified parts of digestive tract; Z98.42 Cataract extraction status, left eye; Z98.41 Cataract extraction status, right eye; Z87.440 Personal history of urinary (tract) infections; Z97.3 Presence of spectacles and contact lenses
CPT/HCPCS: 36415; 71045; 80053; 81001; 83605; 85025; 85379; 87040 ×2; 87150; 99285; A9270; 31500; 36410; 36600; 51702; 71275; 71275-26; 74018; 74018-26; 80048; 80202; 82803; 83735; 83880; 84145; 84484; 85027; 86140; 87077; 87186; 87641; 93005; 94002; 94640; 94760; 94761; 97110-GP; 97162-GP; 97530-GP; 99100; 99223; 99233; 99239; 99284; J0330; J1200; J1644; J1940; J2060; J2250; J2370; J2543; J2704; J3010; J3370; J3490; J7030; J7040; J7050; J7120; J7620-GY; Q9967; U0002

== ENCOUNTER 2021-05-09 15:03 | Emergency (ER) | payer MEDICARE, MEDICAID ==
[2021-05-09] MEDS ORDERED: Sodium Chloride 0.9% 10 ML Syringe FLUSH PRN (15:27)
--- NOTE | 2021-05-09 15:42 | EDM.PDOC ---
ED HPI GENERAL MEDICAL PROBLEM - General Chief Complaint: Fever Stated Complaint: [facility] Time Seen by Provider: 05/09/21 15:11 Source of Information: Reports: Patient, RN Notes Reviewed History Limitations: Reports: No Limitations - History of Present Illness INITIAL COMMENTS - FREE TEXT/NARRATIVE: Patient is a 80-year-old female presenting to the emergency department from [facility] with complaints of headache, fever, and nausea. Report received that patient received her Covid and flu vaccinations yesterday. She also currently is being treated for urinary tract infection with a kidney stone which is supposed to be removed tomorrow via lithotripsy. Patient is unsure who her urologist is. Patient was doing well until noon today when the symptoms developed. States that she had difficulty getting up from her chair because she felt weak. She has not been vomiting but states she does feel nauseous. She does complain of intermittent back pain, however states this has been consistent since her diagnosis of kidney stone. Patient is chronically on 1 L of oxygen by nasal cannula since having Covid pneumonia last year. Her antibiotic for her urinary tract infection was switched to Keflex today as the culture showed resistance to the Bactrim that she was taking. [facility] report is that temperature was 102.4. She received Tylenol 650 mg at 1340 and was afebrile on arrival to ER. - Related Data Allergies Allergy/AdvReac Type Severity Reaction Status Date / Time adhesive Allergy Intermediate Rash Verified 05/09/21 15:28 levofloxacin [From Levaquin] Allergy Intermediate Rash Verified 05/09/21 15:28 Iodine and Iodide Containing Allergy Mild Itching Verified 05/09/21 15:28 Produc Penicillins AdvReac Intermediate Diarrhea Verified 05/09/21 15:28 zinc oxide AdvReac Abdominal Verified 05/10/21 12:17 Pain Home Meds: Home Meds Levothyroxine [Synthroid] 88 mcg PO DAILY 04/24/20 [History] Acetaminophen [Non-Aspirin Extra Strength] 1,000 mg PO BEDTIME PRN 09/02/20 [History] Benzonatate [Tessalon Perle] 100 mg PO QID PRN 09/02/20 [History] Betamethasone Valerate [Valisone 0.1% Crm] 1 applic TOP Q8H PRN 09/02/20 [History] Calcium Carbonate [Tums] 500 mg PO TID PRN 09/02/20 [History] Docusate Sodium 100 mg PO BID 09/02/20 [History] Ketotifen [Ketotifen 0.025% Ophth Soln] 1 drop EYEBOTH BID PRN 09/02/20 [History] Multivitamin [Daily Multiple Vitamin] 1 each PO DAILY 09/02/20 [History] Sertraline [Zoloft] 25 mg PO DAILY 09/02/20 [History] Triamcinolone Acetonide [Triamcinolone Acetonide 0.1% Crm] 1 applic TOP BID PRN 09/05/20 [History] Sodium Chloride [Saline Nasal [place]] 1 spray NS QID PRN 09/20/20 [History] Cholecalciferol (Vitamin D3) [Vitamin D3] 5,000 unit PO DAILY 03/03/21 [History] Famotidine [Pepcid] 20 mg PO DAILY 03/03/21 [History] PEG 400/Hypromellose/Glycerin [Artificial Tears Drops] 1 drop OP Q4H PRN 03/03/21 [History] Fluticasone Propionate [Flonase Allergy Relief] 2 sprays NASBOTH DAILY 03/04/21 [History] Sulfamethoxazole/Trimethoprim [Bactrim 400-80 MG] 1 each PO BID #10 tablet 03/05/21 [Rx] Past Medical History HEENT History: Reports: Impaired Vision, Other (See Below) Other HEENT History: glasses for reading only. Cardiovascular History: Reports: Blood Clots/VTE/DVT, Hypertension Respiratory History: Reports: Pneumonia, Recurrent Other Respiratory History: 2 liters nasal cannula pt wears at home since having COVID July 2020 Gastrointestinal History: Reports: Chronic Constipation, Diverticulosis, GI Blee d Genitourinary History: Reports: Renal Calculus, Urinary Incontinence, UTI, Recurrent [employer] History: Reports: Musculoskeletal History: Reports: Osteoarthritis Other Musculoskeletal History: knee pain, rotator cuff pain but no surgery on either knees or rotator cuffs Neurological History: Reports: Headaches, Chronic Psychiatric History: Reports: Anxiety Endocrine/Metabolic History: Reports: Hypothyroidism, Obesity/BMI 30+ Other Endocrine/Metabolic History: thyroid issues Dermatologic History: Reports: Other (See Below) Other Dermatologic History: skin fungus, can only use baby soap or ivory soap - Infectious Disease History Infectious Disease History: Reports: Chicken Pox, Influenza, Measles, Mumps, Novel Coronavirus - Past Surgical History HEENT Surgical History: Reports: Cataract Surgery, Tonsillectomy Other HEENT Surgeries/Procedures: pt wears glasses for reading only. Not here GI Surgical History: Reports: Appendectomy, Cholecystectomy, Hernia, Abdominal Social & Family History - Family History Family Medical History: Unobtainable HEENT: Reports: None Cardiac: Reports: Hypertension - Tobacco Use Tobacco Use Status *Q: Never Tobacco User Second Hand Smoke Exposure: No - Caffeine Use Caffeine Use: Reports: None - Recreational Drug Use Recreational Drug Use: No - Living Situation & Occupation Living situation: Reports: , with Spouse, Extended Care Facility Occupation: Retired ED ROS GENERAL - Review of Systems Review Of Systems: See Below Constitutional: Reports: Fever, Chills, Weakness HEENT: Reports: No Symptoms Respiratory: Reports: No Symptoms. Denies: Cough Cardiovascular: Reports: No Symptoms Endocrine: Reports: No Symptoms GI/Abdominal: Reports: Nausea. Denies: Abdominal Pain, Diarrhea, Vomiting : Reports: No Symptoms Musculoskeletal: Reports: No Symptoms Skin: Reports: No Symptoms Neurological: Reports: Headache. Denies: Confusion, Dizziness Psychiatric: Reports: No Symptoms Hematologic/Lymphatic: Reports: No Symptoms Immunologic: Reports: No Symptoms ED EXAM, SEPSIS - Physical Exam Exam: See Below Exam Limited By: No Limitations General Appearance: Alert, WD/WN, No Apparent Distress Respiratory/Chest: No Respiratory Distress, Lungs Clear, No Accessory Muscle Use, Chest Non-Tender, Decreased Breath Sounds Cardiovascular: Normal Peripheral Pulses, Regular Rate, Rhythm, No Edema, No Gallop, No JVD, No Murmur, No Rub GI/Abdominal Exam: Normal Bowel Sounds, Soft, Non-Tender, No Organomegaly, No Distention, No Abnormal Bruit, No Mass, Pelvis Stable Neurological: Alert, Oriented, CN II-XII Intact, Normal Cognition, Normal Reflexes, No Motor/Sensory Deficits Psychiatric: Normal Affect, Normal Mood Skin: Warm, Dry, Intact, Normal Color, No Rash Course - Vital Signs Last Recorded V/S: Last Vital Signs Temp 96.7 F L 05/09/21 15:03 Pulse 71 05/09/21 19:17 Resp 28 H 05/09/21 19:17 BP 114/63 05/09/21 19:17 Pulse Ox 99 05/09/21 19:17 - Orders/Labs/Meds Labs: Laboratory Tests 05/09/21 05/09/21 05/09/21 Range/Units 15:45 15:45 15:45 WBC 9.76 (3.98-10.04) K/mm3 RBC 4.68 (3.98-5.22) M/mm3 Hgb 13.5 D (11.2-15.7) gm/dl Hct 42.2 (34.1-44.9) % MCV 90.2 (79.4-94.8) fl MCH 28.8 (25.6-32.2) pg MCHC 32.0 L (32.2-35.5) g/dl RDW Std Deviation 49.4 H (36.4-46.3) fL Plt Count 271 (182-369) K/mm3 MPV 10.8 (9.4-12.3) fl Neutrophils % (Manual) 89 H (40-60) % Band Neutrophils % 0 (0-10) % Lymphocytes % (Manual) 8 L (20-40) % Atypical Lymphs % 0 % Monocytes % (Manual) 3 (2-10) % Eosinophils % (Manual) 0 L (0.7-5.8) % Basophils % (Manual) 0 L (0.1-1.2) Platelet Estimate Adequate RBC Morph Comment Normal PT 10.6 (9.7-12.0) SECONDS INR 0.95 APTT 25.6 D (21.7-31.4) SECONDS Sodium 134 L (136-145) mEq/L Potassium 4.3 (3.5-5.1) mEq/L Chloride 97 L (98-107) mEq/L Carbon Dioxide 29 (21-32) mEq/L Anion Gap 12.3 (5-15) BUN 32 H (7-18) mg/dL Creatinine 1.2 H (0.55-1.02) mg/dL Est Cr Clr Drug Dosing 32.83 mL/min Estimated GFR (MDRD) 43 (>60) mL/min BUN/Creatinine Ratio 26.7 H (14-18) Glucose 102 H (70-99) mg/dL Lactic Acid (0.4-2.0) mmol/L Calcium 8.9 (8.5-10.1) mg/dL Total Bilirubin 0.4 (0.2-1.0) mg/dL AST 26 (15-37) U/L ALT 41 (14-59) U/L Alkaline Phosphatase 80 (46-116) U/L Troponin I < 0.017 (0.00-0.056) ng/mL C-Reactive Protein 3.2 H* (<1.0) mg/dL Total Protein 7.6 (6.4-8.2) g/dl Albumin 3.0 L (3.4-5.0) g/dl Globulin 4.6 gm/dL Albumin/Globulin Ratio 0.7 L (1-2) Urine Color (Yellow) Urine Appearance (Clear) Urine pH (5.0-8.0) Ur Specific [place] (1.005-1.030) Urine Protein (Negative) Urine Glucose (UA) (Negative) Urine Ketones (Negative) Urine Occult Blood (Negative) Urine Nitrite (Negative) Urine Bilirubin (Negative) Urine Urobilinogen (0.2-1.0) Ur Leukocyte Esterase (Negative) Urine RBC (0-5) /hpf Urine WBC (0-5) /hpf Urine WBC Clumps (NOT SEEN) /hpf Ur Squamous Epith Cells (0-5) /hpf Urine Bacteria (FEW) /hpf Urine Mucus (FEW) /hpf 05/09/21 05/09/21 Range/Units 15:45 17:25 WBC (3.98-10.04) K/mm3 RBC (3.98-5.22) M/mm3 Hgb (11.2-15.7) gm/dl Hct (34.1-44.9) % MCV (79.4-94.8) fl MCH (25.6-32.2) pg MCHC (32.2-35.5) g/dl RDW Std Deviation (36.4-46.3) fL Plt Count (182-369) K/mm3 MPV (9.4-12.3) fl Neutrophils % (Manual) (40-60) % Band Neutrophils % (0-10) % Lymphocytes % (Manual) (20-40) % Atypical Lymphs % % Monocytes % (Manual) (2-10) % Eosinophils % (Manual) (0.7-5.8) % Basophils % (Manual) (0.1-1.2) Platelet Estimate RBC Morph Comment PT (9.7-12.0) SECONDS INR APTT (21.7-31.4) SECONDS Sodium (136-145) mEq/L Potassium (3.5-5.1) mEq/L Chloride (98-107) mEq/L Carbon Dioxide (21-32) mEq/L Anion Gap (5-15) BUN (7-18) mg/dL Creatinine (0.55-1.02) mg/dL Est Cr Clr Drug Dosing mL/min Estimated GFR (MDRD) (>60) mL/min BUN/Creatinine Ratio (14-18) Glucose (70-99) mg/dL Lactic Acid 0.7 (0.4-2.0) mmol/L Calcium (8.5-10.1) mg/dL Total Bilirubin (0.2-1.0) mg/dL AST (15-37) U/L ALT (14-59) U/L Alkaline Phosphatase (46-116) U/L Troponin I (0.00-0.056) ng/mL C-Reactive Protein (<1.0) mg/dL Total Protein (6.4-8.2) g/dl Albumin (3.4-5.0) g/dl Globulin gm/dL Albumin/Globulin Ratio (1-2) Urine Color Yellow (Yellow) Urine Appearance Clear (Clear) Urine pH 7.0 (5.0-8.0) Ur Specific [place] 1.015 (1.005-1.030) Urine Protein 1+ H (Negative) Urine Glucose (UA) Negative (Negative) Urine Ketones Trace H (Negative) Urine Occult Blood 3+ H (Negative) Urine Nitrite Negative (Negative) Urine Bilirubin Negative (Negative) Urine Urobilinogen 0.2 (0.2-1.0) Ur Leukocyte Esterase 3+ H (Negative) Urine RBC 10-20 H (0-5) /hpf Urine WBC 20-30 H (0-5) /hpf Urine WBC Clumps Occasional (NOT SEEN) /hpf Ur Squamous Epith Cells 5-10 H (0-5) /hpf Urine Bacteria Moderate H (FEW) /hpf Urine Mucus Not seen (FEW) /hpf Meds: Medications Discontinued Medications Generic Name Dose Route Start Last Admin Trade Name Freq PRN Reason Stop Dose Admin Ceftriaxone Sodium 2 gm/ 100 mls @ 200 mls/hr 05/09/21 18:16 05/09/21 18:30 Sodium Chloride IV 05/09/21 18:45 200 mls/hr ONETIME ONE Administration Sodium Chloride 10 ml 05/09/21 15:27 05/09/21 15:45 Sodium Chloride 0.9% 10 Ml Syringe FLUSH 10 ml ASDIRECTED PRN Administration Keep Vein Open - Re-Assessments/Exams Free Text/Narrative Re-Assessment/Exam: Patient is a 80-year-old female presenting to the emergency department from [facility] with concerns of headache, fever, and weakness. She has a known urinary tract infection with kidney stone, however I am unsure of where it is located or how large as the imaging was not done in our facility. Patient reports she is scheduled to have lithotripsy completed tomorrow in [place]. She is afebrile in the emergency department. She is chronically on 2 L of oxygen by nasal cannula since she had Covid last year. It is likely that her symptoms are related to her second Covid vaccination that she received yesterday, however will complete septic work-up. 05/09/21 18:18 Hematology is grossly unremarkable. WBCs are normal. Lactic acid is normal. CRP is minimally elevated at 3.2. Urinalysis is positive for urinary tract infection, however this was already known. Case was discussed with urologist on-call at [facility], Dr. Maldonado. He did not recommend anything be changed. He recommend that she keep her appointment tomorrow for lithotripsy. I will give her a dose of Rocephin here in the emergency department this evening prior to [facility]. Discussed with patient that her fever, headache, and fatigue is likely related to her second Covid vaccination that she received yesterday. She already has a prescription for Keflex at the nursing facility. Discharge instructions as documented. Departure - Departure Time of Disposition: 18:20 Disposition: DC/Tfer to SNF 03 Condition: Good Clinical Impression: UTI, Urinary tract infectious disease, Fever after vaccination - Discharge Information *PRESCRIPTION DRUG MONITORING PROGRAM REVIEWED*: No *COPY OF PRESCRIPTION DRUG MONITORING REPORT IN PATIENT ANGUS: No Instructions: Urinary Tract Infection, Adult, Fever, Adult, [id number] Referrals: Liu Mars MD [Primary Care Provider] - Forms: ED Department Discharge Additional Instructions: Yessi was seen in the emergency department today for evaluation of headache, fever, and weakness. Septic work-up was completed. Her blood work was found to be normal. She does have a urinary tract infection which was previously known. While in the ER, she received a dose of Rocephin through her IV for treatment of urinary tract infection, however blood work indicates that this is likely not the cause of her fever. Her fever, headache, and weakness is likely due to her Covid vaccine that she received yesterday. Case was discussed with the urologist on-call at [facility] in [place] and the recommendation is that she keep her appointment for lithotripsy as scheduled to tomorrow. Continue Keflex as ordered. Return to ER as needed. Sepsis Event Note (ED) - Evaluation Sepsis Screening Result: No Definite Risk
--- NOTE | 2021-05-09 16:04 | CR ---
Chest: Portable view of the chest was obtained. Comparison: Prior chest x-ray of 03/08/21. Heart size and mediastinum are within normal limits. Patchy areas of increased density are seen within both sides of the chest. Findings are stable from prior exam. Bony structures show nothing acute. Impression: 1. Diffuse increased density within both sides of the chest which appear fairly stable from prior chest x-ray. 2. No acute abnormality is seen. Diagnostic code #3
[2021-05-09] MEDS ORDERED: cefTRIAXone 2 GM in Sodium Chloride 0.9% 100 ML IV ONE (18:16)
== END 2021-05-09 19:45 ==
LOC: SUPCPDRO 15:03 → JD.ED 15:03
DX: N39.0 Urinary tract infection, site not specified (principal); T50.B95A Adverse effect of other viral vaccines, initial encounter; I10 Essential (primary) hypertension; E03.9 Hypothyroidism, unspecified; E66.9 Obesity, unspecified; Z86.718 Personal history of other venous thrombosis and embolism; Z91.048 Other nonmedicinal substance allergy status; Z88.1 Allergy status to other antibiotic agents; Z88.8 Allergy status to other drugs, medicaments and biological substances; Z88.2 Allergy status to sulfonamides; Z68.35 Body mass index [BMI] 35.0-35.9, adult
CPT/HCPCS: 36415; 71045; 80053; 81001; 83605; 84484; 85007; 85027; 85610; 85730; 86140; 87040; 87086; 96365; 99284; J0696

== ENCOUNTER 2023-08-21 23:47 | Emergency (ER) | payer MEDICARE, MEDICAID ==
[2023-08-22] MEDS ORDERED: Acetaminophen 325 MG Tab PO ONE (02:31)
== END 2023-08-22 07:10 | disposition home or self-care (01) ==
LOC: JD.ED 23:47
DX: M79.651 Pain in right thigh (principal); M25.561 Pain in right knee; M25.571 Pain in right ankle and joints of right foot; I10 Essential (primary) hypertension; E03.9 Hypothyroidism, unspecified; E66.9 Obesity, unspecified; Z68.30 Body mass index [BMI] 30.0-30.9, adult; Z86.16 Personal history of COVID-19; Z91.048 Other nonmedicinal substance allergy status; Z88.1 Allergy status to other antibiotic agents; Z91.041 Radiographic dye allergy status; Z88.0 Allergy status to penicillin; Z79.899 Other long term (current) drug therapy
CPT/HCPCS: 36415; 73552; 73590; 85379; 93971; 99284; A9270; 99282